=== PATIENT | female | born 1990 | race African-American/Black ===

== ENCOUNTER 2020-09-04 22:15 | Emergency (ER) | payer SELFPAY ==
--- OUTSIDE RECORDS SUMMARY | 2020-09-04 22:17 | XMS REPORT | Summary of Care ---
:1990 Author Organization [facility] Address [address] [place] [id number] Care Team Providers Name Role Phone Pcp, Does Not Have A Primary Care Provider Reason for Visit Reason Comments VAGINAL PAIN Auth/Cert Status Reason Specialty Diagnoses / Referred By Referred To Procedures Contact Contact Emergency Medicine [facility] [address] [place] [address] Fax: Encounter Details Date Type Department Care Team Description 06/24/2020 Emergency [facility]Emergency [place], Maryse R, Foul smell ing urine (Primary Dx); Department EMNP Suprapubic pain [address] [place] [address] [place] [address] [id number] [place], [place] [id number] Allergies Active Allergy Reactions Severity Noted Date Comments Latex Hives 05/29/2019 Morphine Swelling 05/29/2019 Ziprasidone Hcl Swelling 05/29/2019 documented as of this encounter (statuses as of 06/24/2020) Medications Medication Sig Dispensed Refills Start Date End Date Status hydrOXYzine 25 mg Take 25 mg by 0 Active capsule mouth 3 (three) times daily as needed for Itching. documented as of this encounter (statuses as of 06/24/2020) Active Problems Problem Noted Date 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/2020 documented as of this encounter (statuses as of 06/24/2020) Social History Tobacco Use Types Packs/Day Years Used Date Light Tobacco Smoker Smokeless Tobacco: Never Used Sex Assigned at Date Recorded Not on file COVID-19 Exposure Response Date Recorded In the last month, have you been in contact with No / Unsure 06/24/2020 7:54 PM CDT someone who was confirmed or suspected to have Coronavirus / COVID-19? documented as of this encounter Last Filed Vital Signs Vital Sign Reading Time Taken Comments Blood Pressure 141/97 06/24/2020 7:57 PM CDT Pulse 73 06/24/2020 7:57 PM CDT Temperature 36.7 C (98.1 F) 06/24/2020 7:57 PM CDT Respiratory Rate 16 06/24/2020 7:57 PM CDT Oxygen Saturation 100% 06/24/2020 7:57 PM CDT Inhaled Oxygen Concentration - - Weight 70.3 kg (155 lb) 06/24/2020 7:57 PM CDT Height 157.5 cm (5' 2") 06/24/2020 7:57 PM CDT Body Mass Index 28.35 06/24/2020 7:57 PM CDT documented in this encounter Discharge Instructions Maryse Grimes EMNP - 06/24/2020NO LIFE-THREATENING FINDINGS ON TODAY'S EXAM. SPECIAL INSTRUCTIONS: 1. May take motrin 600mg every 6 hours with food for pain 2. May take 2 tylenol every 4 hours for pain 3. Follow up with OBGYN, information for [facility] included in discharge. FOLLOW-UP RECOMMENDATIONS: RECOMMEND FOLLOW-UP WITH A PRIMARY CARE PROVIDER OR SPECIALIST IN 2-5 DAYS, ESPECIALLY IF NO IMPROVEMENT IN SYMPTOMS. TO FOLLOW-UP WITHIN THE [facility], TRY THESE OPTIONS (CLINIC APPOINTMENTS AVAILABLE ON MZCO-PS-BABG BASIS): 1. SCHEDULE AN APPOINTMENT ONLINE AT [email or web address] 2. OR CALL THE [facility] AT OR 3. OR CALL YOUR [facility] PHYSICIAN'S OFFICE DIRECTLY IF YOU ARE ALREADY AN ESTABLISHED [facility] PATIENT. OR, YOU MAY FOLLOW-UP WITH A PROVIDER OF YOUR CHOICE, SUCH : 1. A PHYSICIAN OF YOUR CHOICE 2. [facility], . LOCATIONS IN [facility] 3. [facility], [address], [place]; [phone] RETURN TO ER FOR WORSENING OF SYMPTOMS. AttachmentsThe following attachments cannot be sent through Care Everywhere. Abdominal Pain, Adult (Syriac)documented in this encounter ED Notes Omaira Quezada RN - 06/24/2020 7:54 PM CDTCC: patient presents to the ER with complaints of vaginal pain that began two days ago after switching body soap. Patient has taken ibuprofen without relief. Denies discharge. PMHx: see history LMP: 06/22/2020 - end Tetanus: UTD Awake, alert, oriented, resp reg unlabored, skin warm and dry, color appropriate for race, moves allext without difficulty, amb without assistance. Appears in no distress. documented in this encounter Miscellaneous Notes ED Nurse Note - Franca Lerma RN - 06/24/2020 9:10 PM CDTPt given printed and verbal discharge instructions regarding foul smelling urine and suprapubic pain, encouraged hydration, Prescriptions provided none Discussed ibuprofen and to take with food to avoid GI distress. 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 Advised to seek medical attention for new/prolonged/worsening of symptoms, Symptoms remained stable Awake, alert oriented, resp reg unlabored, skin w/d, pt leaving amb with steady gait, in no apparent distress, documented in this encounter Plan of Treatment Health Maintenance Due Date Last Done Comments VARICELLA VACCINES (1 of 2 - 2-dose childhood series) 12/17/1991 PNEUMOCOCCAL 0-64 YEARS COMBINED SERIES (1 of 1 - 1996 PPSV23) Depression Screening 2002 DTaP,Tdap,and Td Vaccines (1 - Tdap) 2009 PAP SMEAR 12/17/2011 INFLUENZA VACCINE (#1) 2020 documented as of this encounter Procedures Procedure Name Priority Date/Time Associated Comments Diagnosis POCT TEST CHAVA 06/24/2020 8:16 PM Foul smelling urine Results for this CDT procedure are i n the results section. URINALYSIS STAT 06/24/2020 8:16 PM Foul smelling urine R esults for this CDT procedure are i n the results section. CONSENT/REFUSAL FOR Routine 06/24/2020 7:49 PM DIAGNOSIS AND CDT TREATMENT documented in this encounter Results URINALYSIS (06/24/2020 8:16 PM CDT) Pathologist Sig nature APPEARANCE Clear Clear [facility] COLOR Yellow Yellow [facility] PH 6.0 4.8 - 8.0 [facility] SP GRAVITY 1.028 1.003 - 1.030 [facility] GLU U QUAL Normal Normal [facility] BLOOD Negative Negative [facility] KETONES Negative Negative [facility] PROTEIN Negative Negative [facility] UROBILIN Normal Normal [facility] BILIRUBIN Negative Negative [facility] NITRITE Negative Negative [facility] LEUK FLORA Negative Negative [facility] RBC/HPF 1 0 - 3 HPF [facility] WBC/HPF 0 0 - 5 HPF [facility] BACTERIA Few (A) Negative [facility] MUCOUS Slight (A) Negative LPF [facility] SQ EPITH 4 HPF [facility] Specimen Urine - URINE, CLEAN CATCH Performing Organization Address City/State/Zipcode Phone Number [facility] CLIA: [id number] [place] [address] POCT TEST (06/24/2020 8:16 PM CDT) Pathologist Sig nature POCT PREG negative POCT PREG LOT # [id number] POCT PREG TEST DATE 05/15/2021 Specimen Urine - URINE, CLEAN CATCH documented in this encounter Visit Diagnoses Diagnosis Foul smelling urine - Primary Other nonspecific finding on examination of urine Suprapubic pain Abdominal pain, other specified site documented in this encounter Insurance Payer Benefit Plan / Subscriber ID Effective Dates Phone Addre ss Type Group MEDICARE MEDICARE PART [id number] 2011-[employer] [phone] Medicare [address] & [address] [id number] [place] [id number] [facility] MEDICAID OF [id number] 2019-[employer] [phone] Medicaid [place] [address] [id number] [place] [address] #A (Home) [place] [address] documented as of this encounter
--- OUTSIDE RECORDS SUMMARY | 2020-09-04 22:17 | XMS REPORT | Summary of Care ---
:1990 Author Organization [facility] Address [address] [place] [address] Care Team Providers Name Role Phone Paulette Gu MD Primary Care Provider Reason for Referral Radiology Services (STAT) Status Reason Specialty Diagnoses / Referred By Referred To Procedures Contact Contact New Request Diagnostic Diagnoses Lower abdominal pain Maryse Foley Radiology Procedures US OVARY TORSION R, EMNP [address] [facility] [id number] [place] [id number] Reason for Visit Reason Comments Abdominal Pain LLQ Auth/Cert Status Reason Specialty Diagnoses / Referred By Referred To Procedures Contact Contact Emergency Medicine [facility] Em ergency Dept [address] [place] [address] Fax: Encounter Details Date Type Department Care Team Description 07/08/2020 - Emergency ADC-Emergency Maryse Foley R, PID (acute pelvic inflammatory disease) (Primary Dx); 07/09/2020 Department EMNP Lower abdominal pain; [address] [place] [address] Exposure t o needle, initial encounter Drive [id number] [place] [address] [phone] Allergies Active Allergy Reactions Severity Noted Date Comments Latex Hives 05/29/2019 Morphine Swelling 05/29/2019 Ziprasidone Hcl Swelling 05/29/2019 documented as of this encounter (statuses as of 07/09/2020) Medications Medication Sig Dispensed Refills Start Date End Date Status hydrOXYzine 25 mg Take 25 mg by 0 Active capsule mouth 3 (three) times daily as needed for Itching. doxycycline hyclate Take 1 capsule 28 capsule 0 07/08/202004/2020 Active 100 mg by mouth 2 capsuleIndications: (two) times PID (acute pelvic daily for 14 inflammatory disease) days. metroNIDAZOLE 500 mg Take 1 tablet 28 tablet 0 07/08/202004/2020 Active tabletIndications: PID by mouth 2 (acute pelvic (two) times inflammatory disease) daily for 14 days. ibuprofen 600 mg Take 1 tablet 30 tablet 0 07/08/2020 Active tabletIndications: PID by mouth every (acute pelvic 6 (six) hours inflammatory disease) as needed for Pain (scale 4-6). 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 documented as of this encounter Last Filed Vital Signs Vital Sign Reading Time Taken Comments Blood Pressure 141/85 07/08/2020 11:05 PM CDT Pulse 74 07/08/2020 11:00 PM CDT Temperature 36.8 C (98.2 F) 07/08/2020 7:51 PM CDT Respiratory Rate 20 07/08/2020 11:00 PM CDT Oxygen Saturation 100% 07/08/2020 11:00 PM CDT Inhaled Oxygen Concentration - - Weight 68 kg (150 lb) 07/08/2020 7:51 PM CDT Height - - Body Mass Index 27.44 06/24/2020 7:57 PM CDT documented in this encounter Discharge Instructions Maryse Grimes EMNP - 07/08/2020NO LIFE-THREATENING FINDINGS ON TODAY'S EXAM. SPECIAL INSTRUCTIONS: 1. You are not and you do not have any ovarian cyst or torsion. 2. You are being tested for gonorrhea and chlamydia but you have also been treated. You will need tocontinue the antibiotics prescribed for 2 weeks 3. Follow up with OBGYN for well woman exam 4. See attached information 5. Return for fever, worsening pain or any other concerns FOLLOW-UP RECOMMENDATIONS: RECOMMEND FOLLOW-UP WITH A PRIMARY CARE PROVIDER OR SPECIALIST IN 2-5 DAYS, ESPECIALLY IF NO IMPROVEMENT IN SYMPTOMS. TO FOLLOW-UP WITHIN THE [facility], TRY THESE OPTIONS (CLINIC APPOINTMENTS AVAILABLE ON QOOK-DO-NQRP BASIS): 1. SCHEDULE AN APPOINTMENT ONLINE AT [facility] 2. OR CALL THE [facility] ACCESS CENTER AT OR 3. OR CALL YOUR [facility] PHYSICIAN'S OFFICE DIRECTLY IF YOU ARE ALREADY AN ESTABLISHED [facility] PATIENT. OR, YOU MAY FOLLOW-UP WITH A PROVIDER OF YOUR CHOICE, SUCH : 1. A PHYSICIAN OF YOUR CHOICE 2. [facility], . LOCATIONS IN [facility] 3. [facility], [address], [place]; [phone] RETURN TO ER FOR WORSENING OF SYMPTOMS. AttachmentsThe following attachments cannot be sent through Care Everywhere. Abdominal Pain, Adult (Omani)Pelvic Inflammatory Disease (Omani)Pelvic Inflammatory Disease (PID)? What Is (Omani)Pelvic Inflammatory Disease, Treating with Medicines (PID) (Omani)Metronidazole tablets or capsules (Omani)Doxycycline tablets or capsules (Omani)Ibuprofen tablets and capsules (Omani)documented in this encounter ED Notes Dinorah Fox RN - 07/08/2020 7:50 PM CDTPatient arrived via private car with c/o LLQ abd pain "for a few days". Patient states she does notknow her LMP documented in this encounter Miscellaneous Notes Nursing Note - Laly Torres RN - 07/09/2020 12:27 AM CDTSource of occupational exposure. Consent obtained. Labs drawn for HIV, HCV, and HBsAg. Consent/labs 07/08/2020 at 2350 D Nurse Note - Lesly Bolaños RN - 07/09/2020 12:09 AM CDTPt given printed and verbal discharge instructions regarding PID, encouraged hydration, Prescriptions provided Doxycycline hyclate Metronidazole Ibuprofen Discussed ibuprofen and to take with food to avoid GI distress. Discussed antibiotic therapy and to take until all completed unless adverse reaction occurs - if occurs, discontinue medication and follow up with pcp/seek medical attention 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 and OBGYN Advised to seek medical attention for new/prolonged/worsening of symptoms, Symptoms increase pain, any signs of infection, fever over 100.4 No adverse reaction to meds given in ER noted upon discharge PIV d'cd, dressing to site, catheter in tact. Awake, alert oriented, resp reg unlabored, skin w/d, pt leaving amb with steady gait, in no apparent distress, documented in this encounter Plan of Treatment Date Type Specialty Care Team Description 07/28/2020 Office Visit Family Medicine Diane Gu MD [address] [place] [address] [phone] Name Type Priority Associated Diagnoses Order S chedule GC & CHLAMYDIA LAB Routine PID (acute pelvic ONCE for 1 Occurrences AMPLIFIED ASSAY inflammatory disease) sta rting 07/08/2020 until 0 HIV 1/2 AG-AB WITH LAB Routine Exposure to needle, ON CE for 1 Occurrences REFLEX initial encounter starting 0 07/09/2020 until 0 HCV ANTIBODY LAB Routine Exposure to needle, ONCE for 1 Occurrences initial encounter starting 0 07/09/2020 until 0 HEPATITIS B SURFACE LAB Routine Exposure to needle, O NCE for 1 Occurrences ANTIBODY initial encounter starting 0 07/09/2020 until 0 HEPATITIS B CORE LAB Routine Exposure to needle, ONCE for 1 Occurrences ANTIBODY IGM initial encounter starting 0 07/09/2020 until 0 Health Maintenance Due Date Last Done Comments VARICELLA VACCINES (1 of 2 - 2-dose childhood series) 12/17/1991 PNEUMOCOCCAL 0-64 YEARS COMBINED SERIES (1 of 1 - 1996 PPSV23) Depression Screening 2002 DTaP,Tdap,and Td Vaccines (1 - Tdap) 2009 PAP SMEAR 12/17/2011 INFLUENZA VACCINE (#1) 2020 documented as of this encounter Procedures Procedure Name Priority Date/Time Associated Comments Diagnosis US OVARY TORSION STAT 07/08/2020 9:31 PM Lower abdominal R esults for this CDT pain procedure are i n the results section. CBC WITH DIFF STAT 07/08/2020 8:30 PM Lower abdominal Resu lts for this CDT pain procedure are i n the results section. COMP. METABOLIC STAT 07/08/2020 8:30 PM Lower abdominal Re sults for this PANEL ([id number]) CDT pain procedure are in the results section. POCT TEST CHAVA 07/08/2020 8:17 PM Lower abdomina l Results for this CDT pain procedure are i n the results section. URINALYSIS STAT 07/08/2020 8:16 PM Lower abdominal Resul ts for this CDT pain procedure are i n the results section. CONSENT/REFUSAL FOR Routine 07/08/2020 7:39 PM DIAGNOSIS AND CDT TREATMENT documented in this encounter Results US OVARY TORSION (07/08/2020 9:31 PM CDT) Specimen Impressions Performed At PACS/VR/DOSE Normal size ovaries with patent flow. Low suspicious f or ovarian torsion. Preliminary Report Dictated by Resident: Sneha Mead I, Nathaniel Girard MD., have reviewed this study and agree with the above report. Narrative Performed At PACS/VR/DOSE EXAM: TRANSABDOMINAL AND TRANSVAGINAL PE LVIC ULTRASOUND HISTORY: left lower abd pain COMPARISON: None FINDINGS: The uterus is normal in size and echotex ture and exhibits no masses or focal defects. It measures 7.4 x 4.2 x 4 .6 cm (75 mL). The endometrial stripe measures a normal 11 mm. Both ovaries are normal in size and echotexture. The r ight ovary measures 2.9 x 2.1 x 2 cm (6.2 mL) and the left ovary measures 3.5 x 2.4 x 2 cm(8.9 mL). Arterial and venous flow is present in bilateral ovaries. The urinary bladder is unremarkable. Trace fluid is present in the cul-de-sac . Procedure Note [facility], Radiant Results Inft User - 2019 11:10 PM CDT EXAM: TRANSABDOMINAL AND TRANSVAGINAL PE LVIC ULTRASOUND HISTORY: left lower abd pain COMPARISON: None FINDINGS: The uterus is normal in size and echotex ture and exhibits no masses or focal defects. It measures 7.4 x 4.2 x 4 .6 cm (75 mL). The endometrial stripe measures a normal 11 mm. Both ovaries are normal in size and echo texture. The right ovary measures 2.9 x 2.1 x 2 cm (6.2 mL) and the left o vary measures 3.5 x 2.4 x 2 cm(8.9 mL). Arterial and venous flow is present in bilateral ovaries. The urinary bladder is unremarkable. Trace fluid is present in the cul-de-sac . IMPRESSION Normal size ovaries with patent flow. Lo w suspicious for ovarian torsion. Preliminary Report Dictated by Resident: Sneha Mead I, Nathaniel Girard MD., have review ed this study and agree with the above report. Performing Organization Address City/State/Zipcode Phone Number PACS/VR/DOSE COMP. METABOLIC PANEL ([id number]) (07/08/2020 8:30 PM CDT) Pathologist Sig nature NA 137 135 - 145 mmol/L [facility] K 3.9 3.5 - 5.0 mmol/L [facility] CL 100 98 - 108 mmol/L [facility] CO2 TOTAL 29 23 - 31 mmol/L [facility] AGAP 8 2 - 16 [facility] BUN 13 7 - 23 mg/dL [facility] GLUCOSE 92 70 - 110 mg/dL [facility] CREATININE 0.74 0.50 - 1.04 [facility] mg/dL HOSPITAL [facility] TOTAL BILI 0.2 0.1 - 1.1 mg/dL [facility] CALCIUM 9.9 8.6 - 10.6 mg/dL [facility] T PROTEIN 7.6 6.3 - 8.2 g/dL [facility] ALBUMIN 4.4 3.5 - 5.0 g/dL [facility] ALK PHOS 48 34 - 122 U/L [facility] ALTv 21 5 - 35 U/L [facility] AST(SGOT) 26 13 - 40 U/L [facility] eGFR Calculation 92.8 mL/min/1.73m2 [facility] (Non-) [facility] Y eGFR Calculation 112.5 mL/min/1.73m2 [facility] () [facility] Specimen Blood - VENOUS Narrative Performed At [facility] of Glomerular Filtration Rate (GFR) [facility] and Staging of Kidney Disease* + + +- + | GFR (mL/min/1.73 m2) | With Kidney Damage | Without Kidney Damage + + +- + | >90 | Stage one | Normal + + +- + | 60-89 | Stage two | Decreased GFR + + +- + | 30-59 | Stage three | Stage three + + +- + | 15-29 | Stage four | Stage four + + +- + | <15 (or dialysis) | Stage five | Stage five + + +- + *Each stage assumes the associated GFR level has been in effect for at least three months. Stages 1 to 5, with or without kidney disease, indicate chronic kidney disease. Notes: Determination of stages one and two (with eGFR >59mL/min/1.73 m2) requires estimation of kidney damage for at least three months as defined by structural or functional abnormalities of the kidney, manifested by either: Pathological abnormalities or Markers of kidney damage (including abnormalities in the composition of the blood or urine or abnormalities in imaging tests). Performing Organization Address City/State/Zipcode Phone Number [facility] CLIA: [id number] [place] [address] CBC WITH DIFF (07/08/2020 8:30 PM CDT) Pathologist [facility] nature WBC 6.27 4.30 - 11.10 [facility] 10*3/L [facility] RBC 4.16 3.93 - 5.25 [facility] 10*6/L [facility] HGB 12.5 11.6 - 15.0 g/dL [facility] HCT 37.0 35.7 - 45.2 % [facility] MCV 88.9 80.6 - 95.5 fL [facility] MCH 30.0 25.9 - 32.8 pg [facility] MCHC 33.8 31.6 - 35.1 g/dL [facility] RDW-SD 41.6 39.0 - 49.9 fL [facility] RDW-CV 12.7 12.0 - 15.5 % [facility] PLT 275 166 - 358 [facility] 10*3/L [facility] MPV 9.7 9.5 - 12.9 fL [facility] NRBC/100 WBC 0.0 0.0 - 10.0 /100 [facility] WBCs [facility] NRBC x10^3 <0.01 10*3/L [facility] GRAN MAT (NEUT) % 42.1 % [facility] IMM GRAN % 0.20 % [facility] LYMPH % 47.4 % [facility] MONO % 8.9 % [facility] EOS % 1.1 % [facility] BASO % 0.3 % [facility] GRAN MAT x10^3(ANC) 2.64 1.88 - 7.09 [facility] 10*3/uL [facility] IMM GRAN x10^3 <0.03 0.00 - 0.06 [facility] 10*3/uL [facility] LYMPH x10^3 2.97 1.32 - 3.29 [facility] 10*3/uL [facility] MONO x10^3 0.56 0.33 - 0.92 [facility] 10*3/uL [facility] EOS x10^3 0.07 0.03 - 0.39 [facility] 10*3/uL [facility] BASO x10^3 <0.03 0.01 - 0.07 [facility] 103/uL [facility] Specimen Blood - VENOUS Performing Organization Address City/State/Zipcode Phone Number [facility] CLIA: [id number] [place] [address] POCT TEST (07/08/2020 8:17 PM CDT) Pathologist Sig nature POCT PREG Negative On board controls acceptable Present with C Line POCT PREG LOT # [id number] POCT PREG TEST DATE 08/15/2021 Specimen Urine - URINE, CLEAN CATCH URINALYSIS (07/08/2020 8:16 PM CDT) Pathologist Sig nature APPEARANCE Clear Clear [facility] COLOR Yellow Yellow [facility] PH 6.0 4.8 - 8.0 [facility] SP GRAVITY 1.032 (H) 1.003 - 1.030 [facility] GLU U QUAL Normal Normal [facility] BLOOD Negative Negative [facility] KETONES 5 mg/dL (A) Negative [facility] PROTEIN 30 mg/dL (A) Negative [facility] UROBILIN 2.0 mg/dL (A) Normal [facility] BILIRUBIN Negative Negative [facility] NITRITE Negative Negative [facility] LEUK FLORA Negative Negative [facility] RBC/HPF <1 0 - 3 HPF [facility] WBC/HPF 1 0 - 5 HPF [facility] BACTERIA Negative Negative [facility] MUCOUS Slight (A) Negative LPF [facility] SQ EPITH 3 HPF [facility] Specimen Urine - URINE, CLEAN CATCH Performing Organization Address City/State/Zipcode Phone Number [facility] CLIA: [id number] [place] [address] documented in this encounter Visit Diagnoses Diagnosis PID (acute pelvic inflammatory disease) - Primary Acute parametritis and pelvic cellulitis Lower abdominal pain Abdominal pain, other specified site Exposure to needle, initial encounter documented in this encounter Administered Medications Medication Order MAR Action Action Date Dose Rate Site cefTRIAXone (ROCEPHIN) Given 07/08/2020 11:10 PM 250 mg Right Deltoid-IM injection 250 mg CDT 250 mg, Intramuscular, Q24H, First dose on Doreen 07/09/20 at 0015, Until Discontinued, CHAVA, Reason for Anti-Infective: Documented Infection, Documented Infection Site: Pelvic, Duration of Therapy: Other (see Comments) Medication Order MAR Action Action Date Dose Rate Site azithromycin (ZITHROMAX) tablet Given 07/08/2020 11:10 PM CDT 1, 000 mg 1,000 mg 1,000 mg, Oral, ONCE, 1 dose, Doreen 07/09/20 at 0015, CHAVA, Reason for Anti-Infective: Documented Infection, Documented Infection Site: Pelvic, Duration of Therapy: Other (see Comments) FENTanyl PF (SUBLIMAZE (PF)) injection 50 Given 07/08/2020 9:53 PM CDT 50 mcg mcg 50 mcg, Slow IV Push, ONCE, 1 dose, Mon07/08/20 at 2300, Routine ketorolac (TORADOL) injection 15 mg Given 07/08/2020 8:25 PM CDT 15 mg 15 mg, Slow IV Push, ONCE, 1 dose, Mon07/08/20 at 2130, CHAVA, rail crew member approving Restricted medication: MARYSE FOLEY NaCl 0.9% (NS) bolus infusion New Bag 07/08/2020 8:31 PM CDT 1,000 mL 999 mL/hr 1,000 mL at 999 mL/hr, 1,000 mL, IV Infusion, ONCE, 1 dose, Mon07/08/20 at 2030, CHAVA ondansetron (ZOFRAN (PF)) injection 4 mg Given 07/08/2020 9:53 PM CDT 4 mg 4 mg, Slow IV Push, ONCE, 1 dose, Mon07/08/20 at 2300, CHAVA documented in this encounter Insurance Payer Benefit Plan / Subscriber ID Effective Dates Phone Addre ss Type Group MEDICARE MEDICARE PART [id number] 2011-Presen [phone] [facility] Medicare A & B t 2 [id number] EHSAN SHAH [id number] [facility] MEDICAID OF [id number] 2019-Presen [phone] [place] t 0 [id number] [place] [address] documented as of this encounter
--- OUTSIDE RECORDS SUMMARY | 2020-09-04 22:17 | XMS REPORT | Clinical Summary ---
:1990 Author Organization [facility] Address [address] [place] [address] Care Team Providers Name Role Phone Asked, No Pcp Primary Care Provider Unavailable Allergies Active Allergy Reactions Severity Noted Date Comments Ziprasidone Hcl Swelling 05/29/2019 Latex Hives 05/29/2019 Morphine Swelling 05/29/2019 Medications No known medications Active Problems Problem Noted Date Abdominal pain 06/01/2019 Ectopic 05/29/2019 Vaginal bleeding affecting early 05/29/2019 5 weeks gestation of 05/29/2019 Pelvic pain affecting 05/29/2019 Status post laparoscopy 05/29/2019 Ectopic , tubal 05/29/2019 Surgical History Surgery Date Site/Laterality Comments SALPINGOSTOMY 10/16/2015 - Left laparoscopy for ectopic 10/15/2016 DILATION AND CURETTAGE, DIAGNOSTIC / THERAPEUTIC LAPAROSCOPY FOR ECTOPIC 05/29/2019 Right Right sa lpingectomy by Dr. HALEY Munoz Medical History Medical History Date Comments PTSD (post-traumatic stress disorder) Depression Anxiety Abnormal Pap smear of cervix Chlamydia Migraine Social History Tobacco Use Types Packs/Day Years Used Date Current Every Day Smoker Cigarettes 0.25 Sta rted: 2004 Smokeless Tobacco: Never Used Alcohol Use Drinks/Week oz/Week Comments Yes occasional Sex Assigned at Date Recorded Not on file Obstetrics History Grav Para Term Pre Abrt (TAB) (SAB) (Ect) Mult Lvng Comments 4 3 2 1 Date Outcome GA Total Labor/2nd/3rd Weight Sex Delivery Anes PTL Pily A 1 A5 Name Clin Labor 2008 SAB SAB 2016 Ectopic 2018 SAB SAB Last Filed Vital Signs Not on file Plan of Treatment Health Maintenance Due Date Last Done Comments CERVICAL CANCER SCREENING 12/17/2011 INFLUENZA VACCINE 05/16/2020 Results Not on fileafter 09/04/2019 Insurance Payer Benefit Plan / Subscriber ID Effective Dates Phone Addre ss Type Group MEDICARE MEDICARE PART A [id number] 2011-Present KYLIE YEH Medicare AND B Advance Directives For more information, please contact: [phone] Type Date Recorded Patient Water Purifier Operator Explanati on Advance Directives, Living Will 06/01/2019 5:48 PM and Medical Power of 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
--- OUTSIDE RECORDS SUMMARY | 2020-09-04 22:17 | XMS REPORT | Continuity of Care Document ---
:1990 Author Organization [facility] t Address Critical access hospital [address] [place] [address] Care Team Providers Name Role Phone Asked, Pcp Primary Care Physician Unavailable [facility] WEST Attending Clinician Singer LUA Attending Clinician Lab, Fam Pob I Attending Clinician Unavailable Problems Condition Condition Condition Status Onset Resolution Last Treating Co mments Source Name Details Category Date Date Treatment Clinician Date Abdominal Abdominal Disease Active [facility] pain pain 8-17 [facility] 00:00: st 00 Ectopic Ectopic Disease Active [place] 8-14 Meth mara 00:00: st 00 Vaginal Vaginal Disease Active [place] bleeding bleeding 8-14 [facility] i affecting affecting 00:00: st early early 00 5 weeks 5 weeks Disease Active [place] gestation gestation 8-14 Meth mara of of 00:00: st 00 Pelvic Pelvic Disease Active [place] pain pain 8-14 [facility] affecting affecting 00:00: st 00 Status Status Disease Active [place] post post 8-14 [facility] laparoscop laparoscop 00:00: st y y 00 Ectopic Ectopic Disease Active [place] , , 8-14 Me thodi tubal tubal 00:00: st 00 Allergies, Adverse Reactions, Alerts Allergy Allergy Status Severity Reaction(s) Onset Inactive Treating Comm ents Source Name Type Date Date Clinician Ziprasid Propensi Active Swelling [place] Hcl ty to 8-14 [facility] adverse 00:00: st reaction 00 s to drug Latex Propensi Active Hives [facility] ty to 8-14 [facility] adverse 00:00: st reaction 00 s to drug Morphine Propensi Active Swelling 2018- [place] ty to 05-29 [facility] adverse 00:00: st reaction 00 s to drug Social History Social Habit Start Date Stop Date Quantity Comments Source History of tobacco Current every day [facility] use smoker [facility] Sex Assigned At [place] [facility] Cigarettes smoked 2020-05-27 2020-05-27 [facility] current (pack per 00:00:00 00:00:[address] day) - Reported Tobacco use and 2020-05-27 2020-05-27 Never used [facility] exposure 00:00:00 00:00:00 [facility] Alcohol intake 2020-05-27 2020-05-27 Current drinker [place] 00:00:00 00:00:00 of alcohol [facility] (finding) Alcohol Comment 2019-05-29 2019-05-29 occasional [facility] 00:00:00 00:00:00 [facility] Smoking Status Start Date Stop Date Source Current every day smoker 2020-05-27 00:00:00 Aroldo gupta [facility] Medications This patient has no known medications. Procedures This patient has no known procedures. Plan of Care Planned Activity Planned Date Details Comments Source Future Scheduled 2020-05-16 INFLUENZA VACCINE [place] [facility] Test 00:00:00 [code = INFLUENZA VACCINE] Future Scheduled 2011-12-17 Screening for [place] [facility] Test 00:00:00 malignant neoplasm of cervix (procedure) [code = 901010680] Encounters Start End Encounter Admission Attending Care Care Encounter Source Date/Time Date/Time Type Type Clinicians Facility Department ID 2020-09-04 2020-09-04 Emergency Akosua, [facility] [place] [id number] 19:15:00 20:48:00 Tristen Rush [id number] [place] [id number] [place] [id number] 2020-09-04 2020-09-04 Emergency Schroeder, [facility] [place] [id number] 08:40:00 11:20:00 Keaton Adri [id number] [place] [id number] [place] [id number] 2020-08-18 2020-08-18 Laboratory Lab, [facility] [id number] 08:30:53 08:55:02 Only Fam [facility] [id number] [place] [id number] [id number] [place] [address] [address] Results This patient has no known results.
--- OUTSIDE RECORDS SUMMARY | 2020-09-04 22:18 | XMS REPORT | Summary of Care ---
:1990 Author Organization [facility] - [facility] Address [address] [place] [id number] Care Team Providers Name Role Phone Paulette Gu MD Primary Care Provider Reason for Visit Reason Comments Ingestion Auth/Cert Status Reason Specialty Diagnoses / Referred By Referred To Procedures Contact Contact Emergency Medicine Ad[facility] Em ergency Dept [address] [place] [address] Fax: Encounter Details Date Type Department Care Team Description 09/04/2020 Emergency ADC-Emergency Keaton Schroeder DO Adverse effect of sympathomimetics, init ial encounter (Primary Dx); Department [address] [facility]. Polysubstance abuse [address] [facility] [address] [place] [address] [place] [address] [phone] Allergies Active Allergy Reactions Severity Noted Date Comments Latex Hives 05/29/2019 Morphine Swelling 05/29/2019 Ziprasidone Hcl Swelling 05/29/2019 documented as of this encounter (statuses as of 09/04/2020) Medications Medication Sig Dispensed Refills Start Date End Date Status hydrOXYzine 25 mg Take 25 mg by 0 Active capsule mouth 3 (three) times daily as needed for Itching. ibuprofen 600 mg Take 1 tablet by 30 tablet 0 07/08/2020 Active tabletIndications: PID mouth every 6 (acute pelvic (six) hours as inflammatory disease) needed for Pain (scale 4-6). documented as of this encounter (statuses as of 09/04/2020) Active Problems Problem Noted Date 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/2020 documented as of this encounter (statuses as of 09/04/2020) Social History Tobacco Use Types Packs/Day Years Used Date Light Tobacco Smoker Smokeless Tobacco: Never Used Sex Assigned at Date Recorded Not on file COVID-19 Exposure Response Date Recorded In the last month, have you been in contact with No / Unsure 09/04/2020 8:36 AM PLASTICS PROCESS HAND someone who was confirmed or suspected to have Coronavirus / COVID-19? documented as of this encounter Last Filed Vital Signs Vital Sign Reading Time Taken Comments Blood Pressure 144/105 09/04/2020 11:02 AM PLASTICS PROCESS HAND Pulse 84 09/04/2020 11:02 AM PLASTICS PROCESS HAND Temperature 37.7 C (99.8 F) 09/04/2020 8:38 AM PLASTICS PROCESS HAND Respiratory Rate 16 09/04/2020 11:02 AM PLASTICS PROCESS HAND Oxygen Saturation 100% 09/04/2020 11:02 AM PLASTICS PROCESS HAND Inhaled Oxygen Concentration - - Weight 65.8 kg (145 lb) 09/04/2020 8:38 AM PLASTICS PROCESS HAND Height - - Body Mass Index 26.52 06/24/2020 7:57 PM CDT documented in this encounter Discharge Instructions Keaton Zuniga DO - 09/04/2020 DIAGNOSIS Diagnoses that have been ruled out: None Diagnoses that are still under consideration: None Final diagnoses: Adverse effect of sympathomimetics, initial encounter Polysubstance abuse NO LIFE-THREATENING FINDINGS ON TODAY'S EXAM. PROCEDURES IN THE ER TODAY: Orders Placed This Encounter Procedures ADC / [facility] - DRUG SCREEN TRIAGE ACETAMINOPHEN COMP. METABOLIC PANEL (62401) ETHANOL SALICYLATE URINALYSIS CREATINE KINASE CBC WITH DIFF POCT TEST MEDICATIONS ADMINISTERED IN THE ER TODAY AND DISCHARGE MEDICATIONS: Orders Placed This Encounter Medications NaCl 0.9% (NS) bolus infusion 1,000 mL FOLLOW-UP RECOMMENDATIONS: RECOMMEND FOLLOW-UP WITH A PRIMARY CARE PROVIDER OR SPECIALIST IN 2-5 DAYS, ESPECIALLY IF NO IMPROVEMENT IN SYMPTOMS. MAY FOLLOW-UP WITH A PROVIDER OF YOUR CHOICE, SUCH : 1. A PHYSICIAN OF YOUR CHOICE 2. [facility], . LOCATIONS IN [facility] 3. [facility], [address] [place] [address]; [phone] OR, IF YOU WISH TO FOLLOW-UP WITHIN THE [facility], MAY TRY THESE OPTIONS (CLINIC APPOINTMENTS AVAILABLE ON [id number] BASIS): 1. SCHEDULE AN APPOINTMENT ONLINE AT WWW[facility] 2. OR CALL THE [facility] ACCESS CENTER AT OR 3. OR CALL YOUR [facility] PHYSICIAN'S OFFICE DIRECTLY IF YOU ARE ALREADY AN ESTABLISHED [facility] PATIENT. RETURN TO ER FOR WORSENING OF SYMPTOMS. AttachmentsThe following attachments cannot be sent through Care Everywhere. Abuse, Drug (Greenlandic)Drug Reaction, Other (Greenlandic)documented in this encounter ED Notes Lucien Gamble RN - 09/04/2020 8:36 AM CSTPatient c/o feeling like her throat is closing up after taking an unknown pill from a friend. Patient reports that she thought she was taking Xanax but believes she may have gotten Adderall. Patient istalking in full sentences and O2 sats are 100% on RA. Patient has rapid speech and movements and is sweating. Keaton Uriostegui DO - 09/04/2020 8:31 AM CST EMERGENCY DEPARTMENT ENCOUNTER [facility] Patient Name: Zack Persaud Date of : 1990 29 year old Exam Room:TX1/TX1 Primary Care Physician: Huong Gu [facility] Patient Escorted by: Self [9] Mode of Arrival: Personal means [1] EMS Treatment Prior to ED Arrival: [facility]G AND [facility] COOK treatment: Medication (comment) DOG AND CAT FOOD COOK treatment comments: took xanax from a friend, and another pill unknown, and benadryl Chief Complaint Chief Complaint Patient presents with Ingestion HPI 29-year-old female presenting with concern about allergic reaction or adverse reaction to medication. She reportedly took an unknown pill from a friend that she thought was Xanax but it may have been Adderall. She presented tachycardic diaphoretic and appearing as though she has sympathomimetic toxidrome. She states that she took the medication earlier in the night and has not been able to sleep.Reportedly took 1 white round pill. No intention to harm. Took Benadryl prior to coming in. Past Medical History / Immunizations Past Medical History: Diagnosis Date ADHD Anxiety Bipolar 2 disorder Depression Ectopic PTSD (post-traumatic stress disorder) Tetanus received in last 5 years: Yes Past Surgical History Past Surgical History: Procedure Laterality Date SALPINGECTOMY Right Allergies Allergies Allergen Reactions Latex Hives Morphine Swelling Ziprasidone Hcl Swelling Social History Tobacco Use Light Tobacco Smoker. Smokeless Tobacco: Never used smokeless tobacco. Review of Systems Review of Systems Constitutional: Negative for chills, fatigue and fever. HENT: Positive for trouble swallowing. Negative for sore throat. Eyes: Negative for pain. Respiratory: Negative for cough, chest tightness, shortness of breath and stridor. Breasts: Negative for pain. Cardiovascular: Negative for chest pain and palpitations. Gastrointestinal: Negative for abdominal pain, constipation and diarrhea. Genitourinary: Negative for bladder incontinence, vaginal discharge and difficulty urinating. Musculoskeletal: Negative for back pain. Skin: Negative for color change and wound. Neurological: Negative for dizziness, seizures, weakness, light-headedness and headaches. Psychiatric/Behavioral: Negative for self-injury and suicidal ideas. The patient is nervous/anxious. Physical Exam BP (!) 166/141 | Pulse 107 | Temp 37.7 C (99.8 F) (Oral) | Resp 22 | Wt 65.8 kg (145 lb) | SpO2 100% | BMI 26.52 kg/m Physical Exam Vitals signs and nursing note reviewed. Constitutional: General: She is not in acute distress. Appearance: She is well-developed. She is not diaphoretic. HENT: Head: Normocephalic and atraumatic. Right Ear: External ear normal. Left Ear: External ear normal. Nose: Nose normal. Eyes: General: No scleral icterus. Conjunctiva/sclera: Conjunctivae normal. Pupils: Pupils are equal, round, and reactive to light. Neck: Musculoskeletal: Normal range of motion and neck supple. Cardiovascular: Rate and Rhythm: Regular rhythm. Tachycardia present. Heart sounds: Normal heart sounds. Pulmonary: Effort: Pulmonary effort is normal. Breath sounds: Normal breath sounds. Abdominal: General: Bowel sounds are normal. Palpations: Abdomen is soft. Tenderness: There is no abdominal tenderness. Musculoskeletal: Normal range of motion. Skin: General: Skin is warm and dry. Neurological: Mental Status: She is alert and oriented to person, place, and time. Cranial Nerves: No cranial nerve deficit. Deep Tendon Reflexes: Reflexes are normal and symmetric. Psychiatric: Mood and Affect: Mood is anxious. Speech: Speech is rapid and pressured. Speech is not slurred. Behavior: Behavior normal. Behavior is cooperative. Thought Content: Thought content normal. Labs Recent Results (from the past 24 hour(s)) ADC / [facility] - DRUG SCREEN TRIAGE Collection Time: 09/04/20 8:59 AM Result Value Ref Range BENZO U Presumptive Positive (A) Negative RENE U Negative Negative AMPHET Presumptive Positive (A) Negative THC Negative Negative METHADONE Negative Negative Meth U Presumptive Positive (A) Negative OPIATES Negative Negative Cocaine Metabolite Negative Negative PROPOXY Negative Negative Tric U Negative Negative PCP Negative Negative OXYCOD Negative Negative ACETAMINOPHEN Collection Time: 09/04/20 8:59 AM Result Value Ref Range ACETAMINOP <10.0 (L) 10.0 - 30.0 ug/mL COMP. METABOLIC PANEL (71426) Collection Time: 09/04/20 8:59 AM Result Value Ref Range NA 140 135 - 145 mmol/L K 3.4 (L) 3.5 - 5.0 mmol/L CL 103 98 - 108 mmol/L CO2 TOTAL 23 23 - 31 mmol/L AGAP 14 2 - 16 BUN 10 7 - 23 mg/dL GLUCOSE 108 70 - 110 mg/dL CREATININE 0.70 0.50 - 1.04 mg/dL TOTAL BILI 0.7 0.1 - 1.1 mg/dL CALCIUM 10.4 8.6 - 10.6 mg/dL T PROTEIN 8.8 (H) 6.3 - 8.2 g/dL ALBUMIN 5.1 (H) 3.5 - 5.0 g/dL ALK PHOS 59 34 - 122 U/L ALTv 20 5 - 35 U/L AST(SGOT) 28 13 - 40 U/L eGFR Calculation (Non-) 98.9 mL/min/1.73m2 eGFR Calculation () 119.9 mL/min/1.73m2 ETHANOL Collection Time: 09/04/20 8:59 AM Result Value Ref Range ALCOHOL <10 mg/dL SALICYLATE Collection Time: 09/04/20 8:59 AM Result Value Ref Range SALICYLATE <10 mg/L URINALYSIS Collection Time: 09/04/20 8:59 AM Result Value Ref Range APPEARANCE Hazy (A) Clear COLOR Deborah (A) Yellow PH 5.0 4.8 - 8.0 SP GRAVITY 1.035 (H) 1.003 - 1.030 GLU U QUAL Normal Normal BLOOD Negative Negative KETONES 20 mg/dL (A) Negative PROTEIN 30 mg/dL (A) Negative UROBILIN Normal Normal BILIRUBIN Negative Negative NITRITE Negative Negative LEUK FLORA Negative Negative RBC/HPF 3 0 - 3 HPF WBC/HPF 3 0 - 5 HPF BACTERIA Few (A) Negative MUCOUS Moderate (A) Negative LPF SQ EPITH 8 HPF CREATINE KINASE Collection Time: 09/04/20 8:59 AM Result Value Ref Range CK 127 33 - 194 U/L CBC WITH DIFF Collection Time: 09/04/20 9:01 AM Result Value Ref Range WBC 8.05 4.30 - 11.10 10*3/L RBC 4.51 3.93 - 5.25 10*6/L HGB 13.9 11.6 - 15.0 g/dL HCT 38.5 35.7 - 45.2 % MCV 85.4 80.6 - 95.5 fL MCH 30.8 25.9 - 32.8 pg MCHC 36.1 (H) 31.6 - 35.1 g/dL RDW-SD 38.5 (L) 39.0 - 49.9 fL RDW-CV 12.3 12.0 - 15.5 % PLT 309 166 - 358 10*3/L MPV 9.6 9.5 - 12.9 fL NRBC/100 WBC 0.0 0.0 - 10.0 /100 WBCs NRBC x10^3 <0.01 10*3/L GRAN MAT (NEUT) % 63.8 % IMM GRAN % 0.10 % LYMPH % 27.0 % MONO % 8.8 % EOS % 0.1 % BASO % 0.2 % GRAN MAT x10^3(ANC) 5.13 1.88 - 7.09 10*3/uL IMM GRAN x10^3 <0.03 0.00 - 0.06 10*3/uL LYMPH x10^3 2.17 1.32 - 3.29 10*3/uL MONO x10^3 0.71 0.33 - 0.92 10*3/uL EOS x10^3 <0.03 (L) 0.03 - 0.39 10*3/uL BASO x10^3 <0.03 0.01 - 0.07 10*3/uL POCT TEST Collection Time: 09/04/20 9:08 AM Result Value Ref Range POCT PREG Negative On board controls acceptable with C Line Yes POCT PREG LOT # [id number] POCT PREG TEST DATE 02/12/2022 Imaging No results found for this visit on 09/04/20. Orders and Treatments Orders Placed This Encounter Procedures ADC / [facility] - DRUG SCREEN TRIAGE ACETAMINOPHEN COMP. METABOLIC PANEL (16491) ETHANOL SALICYLATE URINALYSIS CREATINE KINASE CBC WITH DIFF POCT TEST Orders Placed This Encounter Medications NaCl 0.9% (NS) bolus infusion 1,000 mL Procedures See ED Procedure Note Notes & MDM Patient was evaluated for an emergency medical condition related to Ingestion . Differential diagnoses considered by presenting complaints but not limited to: Polysubstance abuse, Sympathomimetic toxidrome, and others. ED Course as of Sep 04 1102MonSep 04, 2020 0935 Meth U(!): Presumptive Positive [PS] 0935 AMP METH(!): Presumptive Positive [PS] 0935 BENZO U(!): Presumptive Positive [PS] ED Course User Index [PS] Keaton Schroeder DO Labs:were ordered, and resulted, any relevant abnormalities were considered. Imaging:Was not ordered IV fluids: tachycardia Procedures:were not performed. EKG: Time:8:51 Rate:90 Rhythm:NSR [place]/Intervals/Morphology:normal axis, intervals, ST segments. Impression:Normal ekg Comparison:none. Interpreted. Rhythm Strip Interpretation: 107 Sinus Tachycardia Pulse Oximetry room air Assessment: Zack Persaud is a 29 year old female with polysubstance abuse and sympathomimetic toxidrome. Symptoms improved after observation in ED. Counseled on drug abuse and risks. Return precautions given if symptoms worsen as documented in the discharge instructions. History, physical exam findings, results of visit, differential diagnosis, medication regimens and plan of future care have been considered. Additional MDM may be found in the ED course. Differential diagnosis considered and final disposition made based on information gathered during evaluation and may not be completely ruled out or specifically listed. Vital signs were rechecked before final disposition and determined to be expected for patient's clinical condition.. Diagnosis ICD-10-CM ICD-9-CM 1. Adverse effect of sympathomimetics, initial encounter T44.905A E941.2 2. Polysubstance abuse F19.10 305.90 Disposition & Follow Up ED Disposition ED Disposition Condition Comment Disch - Home Stable Patient's Medications START taking these medications No medications on file CONTINUE taking these medications which have NOT CHANGED HYDROXYZINE 25 MG CAPSULE Take 25 mg by mouth 3 (three) times daily as needed for Itching. IBUPROFEN 600 MG TABLET Take 1 tablet by mouth every 6 (six) hours as needed for Pain (scale 4-6). START taking Modified Medications as Prescribed No medications on file STOP taking these medications No medications on file Contact information for follow-up Huong Gu MD Specialty: FM-FAMILY MEDICINE Relationship: PCP - General [facility] [address] [place] [address] [place] [phone] [facility] Specialty: UNKNOWN PHYSICIAN SPECIALTY [address] [place] [phone] ADC-Emergency Department Specialty: Emergency Medicine [address] [facility] [address] Instructions: If symptoms worsen as documented in the discharge Keaton Schroeder DO 09/04/2020 9:07 AM ACTIVE COVID-19 PANDEMIC. documented in this encounter Miscellaneous Notes ED Nurse Note - Lucien Gamble RN - 09/04/2020 11:15 AM CSTDischarge instructions given. Advised patient that she tested positive for Meth and she stated " I was experimenting". documented in this encounter Plan of Treatment [...] Priority Date/Time Associated Comments Diagnosis POCT TEST HCAVA 09/04/2020 9:08 Adverse effect of Results for this AM PLASTICS PROCESS HAND sympathomimetics, procedure are in initial encounter the result s section. CBC WITH DIFF STAT 09/04/2020 9:01 Adverse effect of Resul ts for this AM PLASTICS PROCESS HAND sympathomimetics, procedure are in initial encounter the result s section. ADC / [facility] - DRUG STAT 09/04/2020 8:59 Adverse effect of Re sults for this SCREEN TRIAGE AM PLASTICS PROCESS HAND sympathomimetics, procedure are in initial encounter the result s section. URINALYSIS STAT 09/04/2020 8:59 Adverse effect of Result s for this AM PLASTICS PROCESS HAND sympathomimetics, procedure are in initial encounter the result s section. ETHANOL STAT 09/04/2020 8:59 Adverse effect of Result s for this AM PLASTICS PROCESS HAND sympathomimetics, procedure are in initial encounter the result s section. SALICYLATE STAT 09/04/2020 8:59 Adverse effect of Result s for this AM PLASTICS PROCESS HAND sympathomimetics, procedure are in initial encounter the result s section. ACETAMINOPHEN STAT 09/04/2020 8:59 Adverse effect of Resul ts for this AM PLASTICS PROCESS HAND sympathomimetics, procedure are in initial encounter the result s section. COMP. METABOLIC PANEL STAT 09/04/2020 8:59 Adverse effect of Results for this (45578) AM PLASTICS PROCESS HAND sympathomimetics, procedure are in initial encounter the result s section. CREATINE KINASE STAT 09/04/2020 8:59 Adverse effect of Res ults for this AM PLASTICS PROCESS HAND sympathomimetics, procedure are in initial encounter the result s section. documented in this encounter Results POCT TEST (09/04/2020 9:08 AM PLASTICS PROCESS HAND) Pathologist Sig nature POCT PREG Negative On board controls acceptable Yes with C Line POCT PREG LOT # [id number] POCT PREG TEST DATE 02/12/2022 Specimen Urine - URINE, CLEAN CATCH CBC WITH DIFF (09/04/2020 9:01 AM PLASTICS PROCESS HAND) Pathologist Sig [facility] WBC 8.05 4.30 - 11.10 [facility] 10*3/L [facility] RBC 4.51 3.93 - 5.25 [facility] 10*6/L [facility] HGB 13.9 11.6 - 15.0 [facility] g/dL [facility] HCT 38.5 35.7 - 45.2 % [facility] MCV 85.4 80.6 - 95.5 fL [facility] MCH 30.8 25.9 - 32.8 pg [facility] MCHC 36.1 (H) 31.6 - 35.1 [facility] g/dL [facility] RDW-SD 38.5 (L) 39.0 - 49.9 fL [facility] RDW-CV 12.3 12.0 - 15.5 % [facility] PLT 309 166 - 358 [facility] 10*3/L [facility] MPV 9.6 9.5 - 12.9 fL [facility] NRBC/100 WBC 0.0 0.0 - 10.0 /100 [facility] WBCs [facility] NRBC x10^3 <0.01 10*3/L [facility] GRAN MAT (NEUT) % 63.8 % [facility] IMM GRAN % 0.10 % [facility] LYMPH % 27.0 % [facility] MONO % 8.8 % [facility] EOS % 0.1 % [facility] BASO % 0.2 % [facility] GRAN MAT x10^3(ANC) 5.13 1.88 - 7.09 [facility] 10*3/uL [facility] IMM GRAN x10^3 <0.03 0.00 - 0.06 [facility] 10*3/uL [facility] LYMPH x10^3 2.17 1.32 - 3.29 [facility] 10*3/uL [facility] MONO x10^3 0.71 0.33 - 0.92 [facility] 10*3/uL [facility] EOS x10^3 <0.03 (L) 0.03 - 0.39 [facility] 10*3/uL [facility] BASO x10^3 <0.03 0.01 - 0.07 [facility] 10*3/uL [facility] Specimen Blood - ARM, RIGHT Performing Organization Address City/State/Zipcode Phone Number [facility] CLIA: [id number] [place] [address] CREATINE KINASE (09/04/2020 8:59 AM PLASTICS PROCESS HAND) Pathologist Sig nature CK 127 33 - 194 U/L [facility] Specimen Blood - ARM, RIGHT Performing Organization Address [facility] Phone Number [facility] CLIA: [id number] [place] [address] URINALYSIS (09/04/2020 8:59 AM PLASTICS PROCESS HAND) Pathologist Sig nature APPEARANCE Hazy (A) Clear [facility] COLOR Deborah (A) Yellow [facility] PH 5.0 4.8 - 8.0 [facility] SP GRAVITY 1.035 (H) 1.003 - 1.030 [facility] GLU U QUAL Normal Normal [facility] BLOOD Negative Negative [facility] KETONES 20 mg/dL (A) Negative [facility] PROTEIN 30 mg/dL (A) Negative [facility] UROBILIN Normal Normal [facility] BILIRUBIN Negative Negative [facility] NITRITE Negative Negative [facility] LEUK FLORA Negative Negative [facility] RBC/HPF 3 0 - 3 HPF [facility] WBC/HPF 3 0 - 5 HPF [facility] BACTERIA Few (A) Negative [facility] MUCOUS Moderate (A) Negative LPF [facility] SQ EPITH 8 HPF [facility] Specimen Urine - URINE, CLEAN CATCH Performing Organization Address [facility] Phone Number [facility] CLIA: [id number] [place] [address] SALICYLATE (09/04/2020 8:59 AM PLASTICS PROCESS HAND) Pathologist Sig nature SALICYLATE <10 mg/L [facility] [place] [facility] Specimen Blood - ARM, RIGHT Narrative Performed At Therapeutic Range: [facility] Analgesic and Antipyretic Use 20-100 mg/L Anti-Inflammatory Use 100-250 mg/L Toxic Range: Greater than 300 mg/L Performing Organization Address [facility] Phone Number [facility] CLIA: [id number] [place] [address] ETHANOL (09/04/2020 8:59 AM PLASTICS PROCESS HAND) Pathologist Sig nature ALCOHOL <10 mg/dL [facility] Specimen Blood - ARM, RIGHT Narrative Performed At <10 Negative [facility] 50-100 Toxic >100 Depression of PER DIEM RN >400 Fatalities Reported Performing Organization Address City/State/Zipcode Phone Number [facility] CLIA: [id number] [place] [address] LABORATORY [address] [facility] COMP. METABOLIC PANEL ([id number]) (09/04/2020 8:59 AM PLASTICS PROCESS HAND) Pathologist Sig nature NA 140 135 - 145 [facility] mmol/L [facility] K 3.4 (L) 3.5 - 5.0 [facility] mmol/L [facility] CL 103 98 - 108 mmol/L [facility] CO2 TOTAL 23 23 - 31 mmol/L [facility] AGAP 14 2 - 16 [facility] BUN 10 7 - 23 mg/dL [facility] GLUCOSE 108 70 - 110 mg/dL [facility] CREATININE 0.70 0.50 - 1.04 [facility] mg/dL [facility] TOTAL BILI 0.7 0.1 - 1.1 mg/dL [facility] CALCIUM 10.4 8.6 - 10.6 [facility] mg/dL [facility] T PROTEIN 8.8 (H) 6.3 - 8.2 g/dL [facility] ALBUMIN 5.1 (H) 3.5 - 5.0 g/dL [facility] ALK PHOS 59 34 - 122 U/L [facility] ALTv 20 5 - 35 U/L [facility] AST(SGOT) 28 13 - 40 U/L [facility] eGFR Calculation 98.9 mL/min/1.73m2 [facility] ([facility] [place]) eGFR Calculation 119.9 mL/min/1.73m2 [facility] () [facility] Specimen Blood - ARM, RIGHT Narrative Performed At Association of Glomerular Filtration Rate (GFR) [facility] and Staging of Kidney Disease* [...] abnormalities in imaging tests). Performing Organization Address City/[facility] Phone Number [facility] CLIA: [id number] [place] [address] [place] [address] ACETAMINOPHEN (09/04/2020 8:59 AM PLASTICS PROCESS HAND) Pathologist Sig nature ACETAMINOP <10.0 (L) 10.0 - 30.0 ug/mL [facility] Specimen Blood - ARM, RIGHT Narrative Performed At Toxic: Greater than 200 ug/mL @ 4 hour post [facility] ingestion or greater than 50 ug/mL @ 12 hour post ingestion Performing Organization Address [facility] Phone Number [facility] CLIA: [id number] [place] [address] LABORATORY [address] [facility] ADC / [facility] - DRUG SCREEN TRIAGE (09/04/2020 8:59 AM PLASTICS PROCESS HAND) BENZO U Presumptive Negative [facility] Positive (A) HOSPITAL [facility] RENE U Negative Negative [facility] AMPHET Presumptive Negative [facility] Positive (A) HOSPITAL LABORATORY THC Negative Negative [facility] METHADONE Negative Negative [facility] Meth U Presumptive Negative [facility] Positive (A) HOSPITAL LABORATORY OPIATES Negative Negative [facility] Cocaine Metabolite Negative Negative [facility] PROPOXY Negative Negative [facility] Tric U Negative Negative [facility] PCP Negative Negative [facility] OXYCOD Negative Negative [facility] Specimen Urine - URINE, CLEAN CATCH Narrative Performed At Urine Drug Cutoff Ranges [facility] Benzodiazepines: 150 ng/mL Barbiturates: 200 ng/mL Amphetamine: 500 ng/mL Cannabinoids: 50 ng/mL Methadone: 200 ng/mL Methamphetamine: 500 ng/mL Opiates: 100 ng/mL or 2000 ng/mL Cocaine: 150 ng/mL Propoxyphene: 300 ng/mL Tricyclics: 300 ng/mL Oxycodone: 100 ng/mL PCP: 25 ng/mL The results are to be used only for medical (i.e., treatment) purposes. Unconfirmed screening results must not be used for non-medical purposes (e.g., employment testing, legal testing). Performing Organization Address City/State/Zipcode Phone Number [facility] CLIA: [id number] [place] [address] documented in this encounter Visit Diagnoses Diagnosis Adverse effect of sympathomimetics, init ial encounter - Primary Polysubstance abuse Other, mixed, or unspecified nondependen t drug abuse, unspecified documented in this encounter Administered Medications Medication Order MAR Action Action Date Dose Rate Site NaCl 0.9% (NS) bolus New Bag 09/04/2020 9:05 AM PLASTICS PROCESS HAND 1,000 mL 99 9 mL/hr infusion 1,000 mL at 999 mL/hr, 1,000 mL, IV Infusion, ONCE, 1 dose, Mon09/04/20 at 0900, STAT documented in this encounter Insurance Payer Benefit Plan / Subscriber ID Effective Phone Address T ype Group Dates [facility] [id number] 2020-Pre Medica re HEALTHCARE - HEALTHCARE sent Adv HM O MANAGED DUAL COMPLETE MEDICARE HMO [place] MED[place] OF [id number] 2019-Pres [phone] Medi caid [place] ent [phone] [place] [address] documented as of this encounter
--- OUTSIDE RECORDS SUMMARY | 2020-09-04 22:18 | XMS REPORT | Summary of Care ---
:1990 Author Organization [facility] - [facility] Address [address] [place] [address] Care Team Providers Name Role Phone Paulette Gu MD Primary Care Provider Reason for Visit Reason Comments LAB Encounter Details Date Type Department Care Team Description 08/18/2020 Laboratory Only [facility] Family Jorge Arrington, JIGGER MACHINE OPERATOR [address] [place] [address] [address] Contact with or Medicine - [facility], Adc Fam Pob I exposure to viral [address] [place] [address] disease (P rimary Dx) [place] [address] Allergies Active Allergy Reactions Severity Noted Date Comments Latex Hives 05/29/2019 Morphine Swelling 05/29/2019 Ziprasidone Hcl Swelling 05/29/2019 documented as of this encounter (statuses as of 08/18/2020) Medications Medication Sig Dispensed Refills Start Date [...] as of this encounter (statuses as of 08/18/2020) Active Problems Problem Noted Date 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/2020 documented as of this encounter (statuses as of 08/18/2020) Social History Tobacco Use Types Packs/Day Years Used Date Light Tobacco Smoker Smokeless Tobacco: Never Used Sex Assigned at Date Recorded Not on file documented as of this encounter Last Filed Vital Signs Vital Sign Reading Time Taken Comments Blood Pressure - - Pulse 91 08/18/2020 7:00 AM PARK GUARD Temperature - - Respiratory Rate 16 08/18/2020 7:00 AM PARK GUARD Oxygen Saturation 98% 08/18/2020 7:00 AM PARK GUARD Inhaled Oxygen Concentration - - Weight - - Height - - Body Mass Index - - documented in this encounter Nursing Notes Noemi Samuels MA - 08/18/2020 8:40 AM CSTQutoby Persaud is a 29 year old female here for a Rule Out Covid-19 Nasopharyngeal Swab. Patient educated on plan of care for visit, swabbing technique, risks and benefits of test and length of timeto receive results. Verbal consent obtained to perform test. CDC Fact Sheet for Patients provided topatient. All droplet and contact precautions taken with appropriate PPE worn while interacting with patient. - Goggles - N95 Mask - Gloves - Gown RR=16 % O2 Sat=98 Patient swabbed using appropriate nasopharyngeal technique, and patient tolerated well. Patient was discharged in stable condition. Noemi Samuels MA 08/18/2020 8:40 AM GUARD documented in this encounter Plan of Treatment Date Type Specialty Care Team Description 08/25/2020 Office Visit Family Medicine Diane Gu MD [address] [place] [address] [phone] Name Type Priority Associated Diagnoses Order S chedule COVID-19 (NAAT MOLECULAR LAB Routine Contact with or exposure Expected: 08/18/2020, TESTING) to viral disease Expires: Health Maintenance Due Date Last Done Comments VARICELLA VACCINES (1 of 2 - 2-dose childhood series) 12/17/1991 PNEUMOCOCCAL 0-64 YEARS COMBINED SERIES (1 of 1 - 1996 PPSV23) Depression Screening 2002 DTaP,Tdap,and Td Vaccines (1 - Tdap) 2009 PAP SMEAR 12/17/2011 INFLUENZA VACCINE (#1) 2020 documented as of this encounter Results Not on filedocumented in this encounter Visit Diagnoses Diagnosis Contact with or exposure to viral diseas e - Primary Contact with or exposure to other viral diseases documented in this encounter Additional Health Concerns Infection Onset Date Last Indicated Resolved Time COVID-19 Rule Out 08/18/2020 08/18/2020 documented as of this encounter Insurance Payer Benefit Plan / Subscriber ID Effective Phone Address T ype Group Dates [facility] [id number] 2020-Pre Medica re HEALTHCARE - HEALTHCARE sent Adv HM O MANAGED DUAL COMPLETE MEDICARE HMO [facility] MEDICAID OF [id number] 2019-Pres [phone] Medi [facility] ent [phone] [place] [address] documented as of this encounter
--- OUTSIDE RECORDS SUMMARY | 2020-09-04 22:18 | XMS REPORT | Summary of Care ---
:1990 Author Organization [facility] - [facility] Address [address] [place] [address] Care Team Providers Name Role Phone Paulette Gu MD Primary Care Provider Reason for Visit Reason Comments Ingestion Encounter Details Date Type Department Care Team Description 09/04/2020 Emergency ADC-Emergency [place], [place], Anxiety (Pr imary Dx); Department [employer] Drug-induced insomnia; [address] [place] [address] [address] [place] [address] [facility] [place] [address] [place] [address] [place], [place] [id number] Allergies Active Allergy Reactions Severity Noted Date [...] inflammatory disease) needed for Pain (scale 4-6). diphenhydrAMINE Take 1 capsule 20 capsule 0 09/04/2020 Active (BENADRYL) 25 mg by mouth every 6 capsuleIndications: (six) hours as Anxiety, Drug-induced needed for insomnia Allergies or Sleep. documented as of this encounter (statuses as [...] in contact with No / Unsure 09/04/2020 7:11 PM CLERK someone who was confirmed or suspected to have Coronavirus / COVID-19? documented as of this encounter Last Filed Vital Signs Vital Sign Reading Time Taken Comments Blood Pressure 179/115 09/04/2020 7:14 PM CLERK Pulse 101 09/04/2020 7:14 PM CLERK Temperature 37.4 C (99.4 F) 09/04/2020 7:14 PM CLERK Respiratory Rate 20 09/04/2020 7:14 PM CLERK Oxygen Saturation 100% 09/04/2020 7:14 PM CLERK Inhaled Oxygen Concentration - - Weight 65.8 kg (145 lb) 09/04/2020 7:14 PM CLERK Height - - Body Mass Index 26.52 06/24/2020 7:57 PM CDT documented in this encounter Discharge Instructions Tristen Rincon FNP - 09/04/2020DO NOT TAKE ANY MEDICATIONS THAT ARE NOT PRESCRIBED TO YOU. AttachmentsThe following attachments cannot be sent through Care Everywhere. Anxiety, Your Body's Response to (Maltese)documented in this encounter ED Notes Lucien Gamble RN - 09/04/2020 7:11 PM CSTPatient c/o feeling like her throat is closing after taking Meth. Patient was seen in this ER earlier today for the same complaint. Patient speaking in full sentences. O2 sats 100% HR 101. K documented in this encounter Miscellaneous Notes ED Nurse Note - Omaira Quezada RN - 09/04/2020 8:47 PM CSTPt given printed and verbal discharge instructions regarding anxiety, drug induced insomnia, and methamphetamine abuse, encouraged hydration. Prescriptions provided. Pt verbalized understanding of instructions, pt awake alert oriented, resp reg unlabored, skin w/d, color appropriate for race, moves all ext well, pt encouraged to follow up with PCP. Advised to seek medical attention for new/prolonged/worsening of symptoms. Symptoms addressed. No adverse reaction to meds given in ER noted upon discharge. Pt leaving amb with steady gait, in no apparent distress. Left discharge paperwork. documented in this encounter Plan of Treatment Health Maintenance Due Date Last Done Comments VARICELLA VACCINES (1 of 2 - 2-dose childhood series) 12/17/1991 PNEUMOCOCCAL 0-64 YEARS COMBINED SERIES (1 of 1 - 1996 PPSV23) Depression Screening 2002 DTaP,Tdap,and Td Vaccines (1 - Tdap) 2009 PAP SMEAR 12/17/2011 INFLUENZA VACCINE (#1) 2020 documented as of this encounter Procedures Procedure Name Priority Date/Time Associated Diagnosis Comme nts CONSENT/REFUSAL FOR Routine 09/04/2020 7:01 PM CLERK DIAGNOSIS AND TREATMENT documented in this encounter Results Not on filedocumented in this encounter Visit Diagnoses Diagnosis Anxiety - Primary Anxiety state, unspecified Drug-induced insomnia Methamphetamine abuse Nondependent amphetamine or related acti ng sympathomimetic abuse, unspecified documented in this encounter Administered Medications Medication Order MAR Action Action Date Dose Rate Site diphenhydrAMINE (BENADRYL) tablet Given 09/04/2020 8:05 PM CLERK 25 mg 25 mg 25 mg, Oral, ONCE, 1 dose, Mon09/04/20 at 2115, [place]AVA documented in this encounter Insurance Payer Benefit Plan / Subscriber ID Effective Phone Address T e [facility] [id number] 2020-Pre Medica re HEALTHCARE - HEALTHCARE sent Adv HM O MANAGED DUAL COMPLETE MEDICARE HMO [facility] MEDICAID OF [id number] 2019-Pres [phone] [address] Medi caid [place] ent [phone] [place] [address] documented as of this encounter
--- OUTSIDE RECORDS SUMMARY | 2020-09-04 22:18 | XMS REPORT | Summary of Care ---
:1990 Author Organization [facility] - [facility] Address [address] [place] [address] Care Team Providers Name Role Phone Paulette Gu MD Primary Care Provider Reason for Visit Reason Comments LAB Encounter Details Date Type Department Care Team Description 08/18/2020 Laboratory Only [facility] Family Jorge Arrington, TRACTOR OPERATOR LASER LEVELING [address] [place] [address] [address] Contact with or Medicine - [facility], Adc Fam Pob I exposure to viral [address] [place] [address] disease (P rimary Dx) [place] [address] Allergies Active Allergy Reactions Severity Noted Date Comments Latex Hives 05/29/2019 Morphine Swelling 05/29/2019 Ziprasidone Hcl Swelling 05/29/2019 documented as of this encounter (statuses as of 08/19/2020) Medications Medication Sig Dispensed Refills Start Date [...] as of this encounter (statuses as of 08/19/2020) Active Problems Problem Noted Date 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/2020 documented as of this encounter (statuses as of 08/19/2020) Social History Tobacco Use Types Packs/Day Years Used Date Light Tobacco Smoker Smokeless Tobacco: Never Used Sex Assigned at Date Recorded Not on file documented as of this encounter Last Filed Vital Signs Vital Sign Reading Time Taken Comments Blood Pressure - - Pulse 91 08/18/2020 7:00 AM CANOPY INSPECTOR Temperature - - Respiratory Rate 16 08/18/2020 7:00 AM CANOPY INSPECTOR Oxygen Saturation 98% 08/18/2020 7:00 AM CANOPY INSPECTOR Inhaled Oxygen Concentration - - Weight - - Height - - Body Mass Index - - documented in this encounter Nursing Notes Noemi Samuels MA - 08/18/2020 8:40 AM CSTZack Persaud is a 29 year old female [...] condition. Noemi Samuels MA 08/18/2020 8:40 AM PY INSPECTOR documented in this encounter Plan of Treatment Date Type Specialty Care Team Description 08/25/2020 Office Visit Family Medicine Diane Gu MD [address] [place] [phone] Health Maintenance Due Date Last Done Comments VARICELLA VACCINES (1 of 2 - 2-dose childhood series) 12/17/1991 PNEUMOCOCCAL 0-64 YEARS COMBINED SERIES (1 of 1 - 1996 PPSV23) Depression Screening 2002 DTaP,Tdap,and Td Vaccines (1 - Tdap) 2009 PAP SMEAR 12/17/2011 INFLUENZA VACCINE (#1) 2020 documented as of this encounter Procedures Procedure Name Priority Date/Time Associated Comments Diagnosis LAB ONLY COVID Routine 08/18/2020 8:34 Contact with or Result s for this INTERPRETATION AM CANOPY INSPECTOR exposure to viral procedur e are in disease the results section. COVID-19 (NAAT Routine 08/18/2020 8:34 Contact with or Result s for this MOLECULAR TESTING) AM CANOPY INSPECTOR exposure to viral proc edure are in disease the results section. documented in this encounter Results LAB ONLY COVID INTERPRETATION (08/18/2020 8:34 AM CANOPY INSPECTOR) COVID DMT Interpretation/Recommendations [facility] Tests (PCR) for Active Infection by COVID-19 Virus: This result indicates that t he patient has been tested negative for the COVID- 19 virus on one occasion. The most likely interpretation, for approximately two- thirds of patients with a negative test, is that the patient is truly ne gative and has not been infected with the COVID-19 virus. However, for those tested using a nasopharyngeal sample, there is approximately a [id number] chance that the patie nt was infected and the resu lt of the first test is a false negative. This occurs because the virus is predominantly in the lung and out of reach of the nasopharyngeal swab. If the patient becomes progressively more symptomatic, a repeat PCR test debora uld be performed. Tests for IgM and/or IgG Antibodies to COVID-19 Virus: A. A test for IgM antibod y to the COVID-19 virus is likely to be highly informative at this time. IgM antibodies to the COVID-19 virus identified in a high performing test, usually an JOVI or chemil uminescence based assay, debora uld appear in most patients who are truly infected within approximately a week from the onset of symptoms, and in nearly all patients 2 to 3 weeks after symptoms begin. If th e high performing IgM test i s positive, even if the initial PCR test for active infection was negative, it is highly probable the patient has been infected with the virus at some point. A repeat PCR regina t to determine if the patien t has recovered from the infection would be important to perform if the IgM [id number] antibody test is positive. B. A test for IgG antibod ies to the COVID-19 virus was not performed and is also likely to be informative. The sample for the IgG antibody test should be collected 2 or more weeks post onset of sympt oms. It is the IgG antibodie s that can confer long-term immunity to infectious agents. However, at this time, it is not known if the production of IgG antibodies indicates whether the patient is immun e to future infections with the COVID-19 virus. It is also not known how long IgG antibodies to the COVID-19 virus persist, and therefore the length of immunity to future COVID-19 infections. C. Although it is uncommo n, some patients cannot ever mount an antibody response to infectious agents, such as COVID-19. If there are persistently negative results for IgM and IgG antibodies, this may be the explanation. Interpretation Result Comments: These interpretation comment s are based upon aggregate data pooled from the [facility] medical record including both current and prior COVID-19 related testing results for the following tests offered at our institution: A. Tests for the Identification of SARS-CoV-2 RNA: SARS-CoV-2 PCR assays includ [employer] Aptima, Meitu Fusion, [employer] RealTime, and [employer] Xpert Xpress. SARS-CoV-2 Rapid ID NOW by the ID NOW assay. B. Tests for the Identification of SARS-CoV-2 Antibodi es: Chemiluminescent immunoassay s including Access SARS-CoV-2 IgM (DXI 600), JustFabS Igym-PMFA-BgH-2 IgG (Vitros 5600 and Vitros 3600), and Mcallister SARS-CoV-2 IgG (MEDICAL RECORD TRANSCRIBER I System). These interpretation comment s assume that only the above testing was utilized and that the approved acceptable specimen type(s) were used for a given test. These interpretations are au topopulated into Reveal Data based on computerized algorithms matching an interpretation code number to the patient's set of test results. While a clinical pathologist evaluates the combinations for clinical a ccuracy, clinical correlation is recommended as it may not take into account very remote prior testing. Furthermore, it does not consider testing a patient may have had outside of the [facility] system. Additionally, it should be n oted that the computerized algorithm treats the results for PCR testing and Rapid ID NOW testing (also PCR) synonymously, and thus, refers to both testing methodologies as PC R tests. Given that the sens itivity of [facility]'s Rapid ID NOW testing platform is analogous to PCR-based methods, for most patients this has no significant implications for clinical decision making. Howantoinee r, if a patient with a negat yokasta result for Rapid ID NOW continues to have a clinical presentation consistent with COVID-19 infection, negative results should be treated as presumptive negative and a new specimen should be tested with alternative PCR molecu lar test. If results for COVID-19 infe ction continue to be negative in the context of a clinical presentation consistent with a viral respiratory illness, it is possible the patient may have an infection with ano ther respiratory virus, such as influenza, rhinovirus, other coronaviruses that cause the common cold, etc. Influenza testing and if clinically indicated a respiratory pathogen panel may be beneficial in this setting. COVID Results SARS-CoV-2 NAAT (no units) [facility] RY Date Value SERVICES 08/18/2020 Not Detected Specimen Swab - NASOPHARYNGEAL SWAB Performing Organization Address [facility] Cent[facility] Phone Number [facility] CLIA: [id number] [place], [place] [id number] [address] [place] [address] COVID-19 (NAAT MOLECULAR TESTING) (08/18/2020 8:34 AM CANOPY INSPECTOR) Pathologist Sig willian SARS-CoV-2 NAAT Not Detected Not Detected [facility] Specimen Swab - NASOPHARYNGEAL SWAB Narrative Performed At [employer] SARS-CoV-2 Assay is a nucleic acid [facility] amplification test intended for the qualitative detect ion of RNA from SARS-CoV-2 from nasopharyngeal (ADDICTION MEDICINE PHYSICIAN) specimens . It is used under Emergency Use Authorizatio n (EUA) by FDA. A positive result is indicative of the presence of SARS-CoV-2 RNA. Clinical correlation with patient hi story and other diagnostic information is necessary to deter mine patient infection status. A negative (Not Detected) result does not preclude SARS-CoV-2 infection. Clinical correlation with jt ent history and other diagnostic information should be use d in patient management decisions. Invalid: Unable to generate a valid test result on thi s specimen. Please submit a new specimen for repeat te sting if clinically indicated. Performing Organization Address City/[facility]/Zipcode Phone Number [facility] CLIA: [id number] [place], [place] [id number] [address] [place] [address] documented in this encounter Visit Diagnoses Diagnosis Contact with or exposure to viral diseas e - Primary Contact with or exposure to other viral diseases documented in this encounter Additional Health Concerns Infection Onset Date Last Indicated Resolved Time COVID-19 Rule Out 08/18/2020 08/18/2020 08/19/2020 4: 25 AM CANOPY INSPECTOR documented as of this encounter Insurance Payer Benefit Plan / Subscriber ID Effective Phone Address T ype Group Dates [facility] [id number] 2020-Pre Medica re HEALTHCARE - HEALTHCARE sent Adv HM O MANAGED DUAL COMPLETE MEDICARE HMO [facility] MEDICAID OF [id number] 2019-Pres [phone] Medi caid [place] ent [phone] [place] [address] documented as of this encounter
[2020-09-04 22:45] LABS: Absolute Lymphocytes (CBC) 1.4 K/uL (0.7-4.9); Basophils % 0.6 % (0-1.3); Hematocrit 37.8 % (36.0-45.0); RBC Red Blood Cell Count 4.35 M/uL (3.86-4.86)
[2020-09-04 22:49] LABS: Protime INR 1.06
[2020-09-04] MEDS ORDERED: LORazepam 2 MG/ML VIAL ONE ×2 (22:50→23:34)
[2020-09-04] MEDS ORDERED: NA CHLORIDE 0.9% 1,000 ML ONE ×2 (22:50→23:39)
[2020-09-04 22:58] LABS: Urine Blood NEGATIVE (NEG); Urine Glucose NEGATIVE (NEG); Urine Protein 2+ (NEG); Urine Specific Gravity 1.025 (1.005-1.030)
[2020-09-04 23:26] LABS: Barbiturates NEGATIVE (NEGATIVE); Benzodiazepines POSITIVE (NEGATIVE); Cocaine NEGATIVE (NEGATIVE); METHAMPHETAM POSITIVE (NEGATIVE); Methadone NEGATIVE (NEGATIVE); Opiates NEGATIVE (NEGATIVE); Phencyclidine NEGATIVE (NEGATIVE); THC Cannibis NEGATIVE (NEGATIVE)
[2020-09-04 23:39] LABS: Albumin 4.1 g/dL (3.4-5.0); Bilirubin Direct 0.1 mg/dL (0-0.2); Bilirubin Total 0.6 mg/dL (0.2-1.0); Potassium 3.2 mmol/L (3.5-5.1); Protein, Total 7.9 g/dL (6.4-8.2)
--- NOTE | 2020-09-05 02:37 | ER ---
Nurse's Notes [facility] Name: Zack Persaud Age: 29 yrs Sex: Female : 1990 Arrival Date: 09/04/2020 Time: 22:15 Bed 6 Private MD: Diagnosis: Methamphetamine Abuse;Chest pain, unspecified Presentation: 09/04 22:15 Chief complaint: Patient states: 3 days ago me and my friend took some drugs rr5 methamphetamine and cocaine then took some fentanyl pills. now my heart feels like it's about to stop. I went to other [facility] with the same complaint they gave me pink pill 25 mg. 22:15 Coronavirus screen: Client denies travel out of the [place] in the last 14 days. At this rr5 time, the client does not indicate any symptoms associated with coronavirus-19. Ebola Screen: Patient negative for fever greater than or equal to 101.5 degrees Fahrenheit, and additional compatible Ebola Virus Disease symptoms Patient denies exposure to infectious person. Patient denies travel to an Ebola-affected area in the 21 days before illness onset. Initial Sepsis Screen: Does the patient meet any 2 criteria? HR > 90 bpm. Does the patient have a suspected source of infection? No. Patient's initial sepsis screen is negative. Risk Assessment: Do you want to hurt yourself or someone else? Patient reports no desire to harm self or others. Onset of symptoms was September 04, 2020. 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 - Social history:: Smoking status: Patient reports the use of cigarette tobacco products, 4-8 sticks, Patient uses street drugs, cocaine, Methamphetamine (Meth) Patient/guardian denies using alcohol. Screenin:41 Abuse screen: Denies threats or abuse. Denies injuries from another. Nutritional rr5 screening: No deficits noted. Tuberculosis screening: No symptoms or risk factors identified. Fall Risk IV access (20 points). Total Toribio Fall Scale indicates No Risk (0-24 pts). Assessment: 22:15 General: Appears in no apparent distress. uncomfortable, Behavior is anxious. Pain: rr5 Complains of pain in chest Pain does not radiate. Pain currently is 10 out of 10 on a pain scale. Quality of pain is described as aching, Pain began suddenly, Is intermittent. Neuro: Level of Consciousness is awake, alert, obeys commands, Oriented to person, place, time. Cardiovascular: Reports chest pain, Capillary refill < 3 seconds Patient's skin is warm and dry. Respiratory: Reports shortness of breath Airway is patent Respiratory effort is even, Respiratory pattern is hyperventilation tachypnea. GI: No signs and/or symptoms were reported involving the gastrointestinal system. : No signs and/or symptoms were reported regarding the genitourinary system. EENT: No signs and/or symptoms were reported regarding the EENT system. Derm: Skin is intact, is healthy with good turgor, Skin temperature is warm. Musculoskeletal: Circulation, motion, and sensation intact. Capillary refill < 3 seconds. 23:25 Reassessment: patient verbalized "I want to see my sister upstairs, walks outside her rr5 room, seen by ED provider with order made and carried out. patient reorient and agreed to go back to her room calmy. 09/05 00:00 Reassessment: Patient appears in no apparent distress at this time. snacks given with rr5 appetite. 01:00 Reassessment: Patient appears in no apparent distress at this time. standing on bedside rr5 calm not aggressive. awaiting for CT head without contrast. 02:34 Reassessment: Patient appears in no apparent distress at this time. Patient is alert, rr5 oriented x 3, equal unlabored respirations, skin warm/dry/pink. ED provider assess the patient together with her friend at bedside, awake alert no complaints made. 02:40 Reassessment: Patient appears in no apparent distress at this time. discharge rr5 instruction given and explained without complaints made. Vital Signs: 09/04 22:15 BP 165 / 130; Pulse 122; Resp 30; Temp 98; Pulse Ox 100% ; Weight 65.77 kg; Height 5 rr5 ft. 2 in. (157.48 cm); 22:30 BP 165 / 130; Pulse 112; Resp 24; Pulse Ox 100% ; rr5 23:29 BP 135 / 90; Pulse 98; Resp 19; Pulse Ox 100% ; rr5 23:55 BP 144 / 75; Pulse 105; Resp 16; Pulse Ox 100% ; rr5 09/05 01:00 BP 126 / 85; Pulse 92; Resp 16; Temp 97.; Pulse Ox 99% ; rr5 02:15 BP 121 / 62; Pulse 90; Resp 16; Pulse Ox 99% ; rr5 09/04 22:15 Body Mass Index 26.52 (65.77 kg, 157.48 cm) rr5 ED Course: 09/04 22:15 Patient arrived in ED. ag3 22:15 Arm band placed on. rr5 22:18 Donn Hurtado MD is Attending Physician. mh7 22:25 Patient has correct armband on for positive identification. Placed in gown. Bed in low rr5 position. Call light in reach. Side rails up X2. teacher adult education on. Pulse ox on. NIBP on. 22:30 EKG done, by ED staff, reviewed by Donn Hurtado MD. rr5 22:35 Inserted saline lock: 20 gauge in right hand, using aseptic technique. rr5 22:40 Poncho Britton RN is Primary Nurse. rr5 22:50 Triage completed. rr5 22:52 Urine collected: clean catch specimen, clear. rr5 23:00 Chest Single View XRAY In Process Unspecified. EDMS 09/05 00:00 No provider procedures requiring assistance completed. Patient maintains SpO2 rr5 saturation greater than 95% on room air. 01:52 Head Brain Wo Cont CT In Process Unspecified. EDMS 02:40 IV discontinued, intact, bleeding controlled, No redness/swelling at site. Pressure rr5 dressing applied. Administered Medications: 09/04 22:44 Drug: Ativan 1 mg Route: IVP; Site: right hand; rr5 23:40 Follow up: Response: No adverse reaction rr5 22:45 Drug: NS 0.9% 1000 ml Route: IV; Rate: 1000 ml; Site: right hand; rr5 23:45 Follow up: Response: No adverse reaction; IV Status: Completed infusion; IV Intake: rr5 1000ml 23:25 Drug: Ativan 1 mg Route: IVP; Site: right hand; rr5 09/05 00:25 Follow up: Response: No adverse reaction rr5 09/04 23:29 Drug: NS 0.9% 1000 ml Route: IV; Rate: 1 bolus; Site: right hand; rr5 09/05 00:20 Follow up: Response: No adverse reaction; IV Status: Completed infusion; IV Intake: rr5 1000ml 01:03 Drug: NS 0.9% 1000 ml Route: IV; Rate: 1000 ml; Site: right hand; rr5 01:40 Follow up: Response: No adverse reaction; IV Status: Completed infusion; IV Intake: rr5 1000ml Intake: 09/04 23:45 IV: 1000ml; Total: 1000ml. rr5 09/05 00:20 IV: 1000ml; Total: 2000ml. rr5 01:40 IV: 1000ml; Total: 3000ml. rr5 Outcome: 02:36 Discharge ordered by . mh7 02:40 Discharged to home ambulatory, with friend. rr5 02:40 Condition: stable 02:40 Discharge instructions given to family, Instructed on discharge instructions, follow up and referral plans. Demonstrated understanding of instructions, follow-up care. 02:42 Patient left the ED. rr5 Signatures: Dispatcher [employer] Che Abdullahi Poncho Zacarias RN RN rr5 Donn Hurtado MD MD mh7
--- NOTE | 2020-09-05 02:37 | EDPHYS ---
Physician Documentation [facility] Name: Zack Persaud Age: 29 yrs Sex: Female : 1990 Arrival Date: 09/04/2020 Time: 22:15 Bed 6 Private MD: ED Physician Donn Hurtado HPI: 09/04 22:44 This 29 yrs old Female presents to ER via Unassigned with complaints of Chest Pain. mh7 22:44 The patient or guardian reports chest pain that is located primarily in the substernal mh7 area. The pain does not radiate. Associated signs and symptoms: Pertinent negatives: abdominal pain, cough, diaphoresis, dizziness, headache, lower extremity pain, lower extremity swelling, lightheadedness, nausea, near syncope, palpitations, recent travel, shortness of breath, syncope, vomiting. The chest pain is described as aching. Duration: The patient or guardian reports a single episode, that is still ongoing. Modifying factors: The symptoms are alleviated by nothing. the symptoms are aggravated by nothing. Severity of pain: At its worst the pain was moderate last night, in the emergency department the pain is unchanged. 09/05 00:45 Patient states that she had been binging on methamphetamine and some type of pills a mh7 few days ago and has not slept. She also complains of feeling like her heart is not beating. She denies any injuries, SOB, abdominal pain, nausea, vomiting, fever, cough.. 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 - Social history:: Smoking status: Patient reports the use of cigarette tobacco products, 4-8 sticks, Patient uses street drugs, cocaine, Methamphetamine (Meth) Patient/guardian denies using alcohol. ROS: 09/05 00:45 Constitutional: Negative for fever, chills, and weight loss, Eyes: Negative for injury, mh7 pain, redness, and discharge, ENT: Negative for injury, pain, and discharge, Neck: Negative for injury, pain, and swelling, Respiratory: Negative for shortness of breath, cough, wheezing, and pleuritic chest pain, Abdomen/GI: Negative for abdominal pain, nausea, vomiting, diarrhea, and constipation, Back: Negative for injury and pain, : Negative for injury, bleeding, discharge, and swelling, MS/Extremity: Negative for injury and deformity, Skin: Negative for injury, rash, and discoloration, Neuro: Negative for headache, weakness, numbness, tingling, and seizure, Psych: Negative for depression, anxiety, suicide ideation, homicidal ideation, and hallucinations, Allergy/Immunology: Negative for hives, rash, and allergies, Endocrine: Negative for neck swelling, polydipsia, polyuria, polyphagia, and marked weight changes, Hematologic/Lymphatic: Negative for swollen nodes, abnormal bleeding, and unusual bruising. Exam: 00:45 Head/Face: Normocephalic, atraumatic. Eyes: Pupils equal round and reactive to light, mh7 extra-ocular motions intact. Lids and lashes normal. Conjunctiva and sclera are non-icteric and not injected. Cornea within normal limits. Periorbital areas with no swelling, redness, or edema. Neck: Trachea midline, no thyromegaly or masses palpated, and no cervical lymphadenopathy. Supple, full range of motion without nuchal rigidity, or vertebral point tenderness. No Meningismus. Chest/axilla: Normal chest wall appearance and motion. Nontender with no deformity. No lesions are appreciated. 00:45 Respiratory: Lungs have equal breath sounds bilaterally, clear to auscultation and percussion. No rales, rhonchi or wheezes noted. No increased work of breathing, no retractions or nasal flaring. Abdomen/GI: Soft, non-tender, with normal bowel sounds. No distension or tympany. No guarding or rebound. No evidence of tenderness throughout. Back: No spinal tenderness. No costovertebral tenderness. Full range of motion. Skin: Warm, dry with normal turgor. Normal color with no rashes, no lesions, and no evidence of cellulitis. MS/ Extremity: Pulses equal, no cyanosis. Neurovascular intact. Full, normal range of motion. Neuro: Awake and alert, GCS 15, oriented to person, place, time, and situation. Cranial nerves II-XII grossly intact. Motor strength 5/5 in all extremities. Sensory grossly intact. Cerebellar exam normal. Normal gait. 00:45 Constitutional: The patient appears in no acute distress, alert, awake, anxious. 00:45 Cardiovascular: Rate: tachycardic, Rhythm: regular, Pulses: no pulse deficits are appreciated, Heart sounds: normal, normal S1and S2, Edema: is not appreciated, JVD: is not appreciated. 00:45 Psych: Behavior/mood is cooperative, anxious, Affect is animated, Oriented to person, place, time, Patient has no thoughts/intents to harm self or others. Judgement / Insight is normal. Memory is normal. Delusions/hallucinations are not present. Vital Signs: 09/04 22:15 BP 165 / 130; Pulse 122; Resp 30; Temp 98; Pulse Ox 100% ; Weight 65.77 kg; Height 5 rr5 ft. 2 in. (157.48 cm); 22:30 BP 165 / 130; Pulse 112; Resp 24; Pulse Ox 100% ; rr5 23:29 BP 135 / 90; Pulse 98; Resp 19; Pulse Ox 100% ; rr5 23:55 BP 144 / 75; Pulse 105; Resp 16; Pulse Ox 100% ; rr5 09/05 01:00 BP 126 / 85; Pulse 92; Resp 16; Temp 97.; Pulse Ox 99% ; rr5 02:15 BP 121 / 62; Pulse 90; Resp 16; Pulse Ox 99% ; rr5 09/04 22:15 Body Mass Index 26.52 (65.77 kg, 157.48 cm) rr5 MDM: 02:32 Differential diagnosis: acute myocardial infarction, acute pericarditis, anxiety, chest mh7 wall pain, costochondritis, myocarditis, pericarditis, pneumonia, pneumothorax, Substance Abuse. HEART Score: History: Slightly Suspicious (0), ECG: Non specific repolarization disturbance / LBTB / PM (1), Age: < or = 45 years (0), Risk Factors: No Risk Factors Known (0), Troponin: < or = 1 x Normal Limit (0), Total Score = 1. Data reviewed: vital signs, nurses notes, lab test result(s), cardiac enzymes, CBC, drug level(s), electrolytes, urinalysis, EKG, radiologic studies, CT scan, plain films. Data interpreted: Pulse oximetry: on room air is 99 %. Interpretation: normal. Counseling: I had a detailed discussion with the patient and/or guardian regarding: the historical points, exam findings, and any diagnostic results supporting the discharge/admit diagnosis, lab results, radiology results, the need for outpatient follow up, to return to the emergency department if symptoms worsen or persist or if there are any questions or concerns that arise at home. 02:36 Patient medically screened. [facility] 09/04 22:31 Order name: Acetaminophen; Complete Time: 00:10 [facility] 09/04 22:31 Order name: Basic Metabolic Panel; Complete Time: 00:10 [facility] 09/04 22:31 Order name: CBC with Diff; Complete Time: 23:08 [facility] 09/04 22:31 Order name: ETOH Level; Complete Time: 23:08 [facility] 09/04 22:31 Order name: Hepatic Function; Complete Time: 00:10 [facility] 09/04 22:31 Order name: PT-INR; Complete Time: 23:08 [facility] 09/04 22:31 Order name: Ptt, Activated; Complete Time: 23:08 [facility] 09/04 22:31 Order name: Salicylate; Complete Time: 23:08 [facility] 09/04 22:31 Order name: Urine Drug Screen; Complete Time: 00:10 [facility] 09/04 22:31 Order name: CPK; Complete Time: 00:10 [facility] 09/04 22:32 Order name: Chest Single View XRAY [facility] 09/04 22:48 Order name: Troponin (emerg Dept Use Only); Complete Time: 00:10 [facility] 09/04 22:50 Order name: Urine Dipstick--Ancillary (enter results); Complete Time: 23:08 [facility] 09/04 22:50 Order name: Urine --Ancillary (enter results); Complete Time: 23:08 [facility] 09/04 22:31 Order name: EKG; Complete Time: 22:32 [facility] 09/04 22:31 Order name: EKG - Nurse/Tech; Complete Time: 22:45 [facility] 09/04 22:31 Order name: IV Saline Lock; Complete Time: 22:45 [facility] 09/04 22:31 Order name: Labs collected and sent; Complete Time: 22:45 [facility] 09/04 22:31 Order name: Urine Dipstick-Ancillary (obtain specimen); Complete Time: 22:45 [facility] 09/04 22:31 Order name: Urine Test (obtain specimen); Complete Time: 22:45 [facility] 09/05 00:54 Order name: Head Brain Wo Cont CT rr5 Administered Medications: 09/04 22:44 Drug: Ativan 1 mg Route: IVP; Site: right hand; rr5 23:40 Follow up: Response: No adverse reaction rr5 22:45 Drug: NS 0.9% 1000 ml Route: IV; Rate: 1000 ml; Site: right hand; rr5 23:45 Follow up: Response: No adverse reaction; IV Status: Completed infusion; IV Intake: rr5 1000ml 23:25 Drug: Ativan 1 mg Route: IVP; Site: right hand; rr5 09/05 00:25 Follow up: Response: No adverse reaction 5 09/04 23:29 Drug: NS 0.9% 1000 ml Route: IV; Rate: 1 bolus; Site: right hand; rr5 09/05 00:20 Follow up: Response: No adverse reaction; IV Status: Completed infusion; IV Intake: rr5 1000ml 01:03 Drug: NS 0.9% 1000 ml Route: IV; Rate: 1000 ml; Site: right hand; rr5 01:40 Follow up: Response: No adverse reaction; IV Status: Completed infusion; IV Intake: rr5 1000ml Disposition: 09/05/20 02:36 Discharged to Home. Impression: Methamphetamine Abuse, Chest pain, unspecified. - Condition is Stable. - Discharge Instructions: Nonspecific Chest Pain, Rwne-br-Efyu, Stimulant Use Disorder-Methamphetamines. - Medication Reconciliation Form, Thank You Letter, Antibiotic Education, Prescription Opioid Use form. - Follow up: Private Physician; When: 1 - 2 days; Reason: Worsening of condition, Recheck today's complaints, Continuance of care, Re-evaluation by your physician. - Problem is new. - Symptoms are resolved. Signatures: Dispatcher [employer] Poncho Zamudio RN RN rr5 Donn Hurtado MD MD mh7 Corrections: (The following items were deleted from the chart) 02:42 02:36 09/05/2020 02:36 Discharged to Home. Impression: Methamphetamine Abuse; Chest rr5 pain, unspecified. Condition is Stable. Forms are Medication Reconciliation Form, Thank You Letter, Antibiotic Education, Prescription Opioid Use. Follow up: Private Physician; When: 1 - 2 days; Reason: Worsening of condition, Recheck today's complaints, Continuance of care, Re-evaluation by your physician. Problem is new. Symptoms are resolved. mh7
--- NOTE | 2020-09-05 08:27 | RAD REPORT ---
EXAM DESCRIPTION: Felipe Single View09/04/2020 11:00 pm CLINICAL HISTORY: Palpitations COMPARISON: none FINDINGS: Mild right basilar opacities The left lung appears clear of acute infiltrate appear clear of acute infiltrate. The heart is normal size. A curvilinear lucency adjacent to the descending thoracic aorta IMPRESSION: Mild right basilar opacities may represent atelectasis or pneumonia Curvilinear lucency adjacent to the descending thoracic aorta probably representing normal aerated jong ng surrounded by pulmonary vessels. Small amount of pneumomediastinum can is another consideration
[2020-09-05 13:15] VITALS: TEMP 97; O2SAT 99
[2020-09-05 13:20] VITALS: BP 121/62
--- NOTE | 2020-09-07 11:15 | RAD REPORT ---
EXAM DESCRIPTION: CT - Head Brain Wo Cont - 09/05/2020 7:14 am CLINICAL HISTORY: CONFUSED COMPARISON: None. TECHNIQUE: Head/brain axial images acquired without contrast. Coronal and sagittal reformats created . Exam performed according to departmental dose-optimization program which includes automated exposur e control, adjustment of mA and/or kV according to patient size, and/or use of iterative reconstructi on technique. FINDINGS: No midline shift, mass effect, intracranial hemorrhage, or hydrocephalus. Brain parenchyma unremarkable. Paranasal sinuses and mastoid air cells clear. No skull fracture or significant skull lesion. IMPRESSION: Unremarkable CT head without contrast. 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 The interpreting r adiologist is fully responsible for the content of the report.
== END 2020-09-05 02:42 | disposition home or self-care (01) ==
LOC: ER 22:15
DX: F15.10 Other stimulant abuse, uncomplicated (principal); F17.210 Nicotine dependence, cigarettes, uncomplicated; Z88.5 Allergy status to narcotic agent; Z88.8 Allergy status to other drugs, medicaments and biological substances
CPT/HCPCS: 36415; 70450; 71045; 80048; 80076; 80307; 80320; 80329; 81003; 81025; 82550; 84484; 85025; 85610; 85730; 93005; 96361; 96374; 99285; J7030

== ENCOUNTER 2021-06-13 16:05 | Emergency (ER) | payer OTHER ==
--- OUTSIDE RECORDS SUMMARY | 2021-06-13 16:07 | XMS REPORT | Continuity of Care Document ---
:1990 Author Organization [facility] t Address [address] [place] [address] Care Team Providers Name Role Phone Asked, Pcp Primary Care Physician Unavailable [facility] Attending Clinician Singer LUA Attending Clinician Lab, Fam Pob I Attending Clinician Unavailable Problems Condition Condition Condition Status Onset Resolution Last Treating Co mments Source Name Details Category Date Date Treatment Clinician Date Abdominal Abdominal Disease Active [facility] pain pain [facility] 00[facility]: [facility]osp[facility] 00 l Ectopic Ectopic Disease Active [facility] 00 l Vaginal Vaginal Disease Active [facility] bleeding bleeding [facility] affecting affecting 00:00: Hosp millie early early 00 l 5 weeks 5 weeks Disease Active [facility] gestation gestation 8-[facility] of of 00:00: Hospita 00 l Pelvic Pelvic Disease Active [facility] pain pain [facility] affecting affecting 00:00: Hosp millie 00 l Status Status Disease Active [facility] post post 8-[facility] laparoscop laparoscop 00:00: Ho spita y y 00 l Ectopic Ectopic Disease Active [facility] , , 8-[facility] tubal tubal 00:00: Hospita 00 l Allergies, Adverse Reactions, Alerts Allergy Allergy Status Severity Reaction(s) Onset Inactive Treating Comm ents Source Name Type Date Date Clinician Ziprasid Propensi Active Swelling 2019- Meth mara one Hcl ty to 8-[facility] adverse 00:00: Hospita reaction 00 l s to drug Latex Propensi Active Hives [facility] ty to [facility] adverse 00:00: Hospita reaction 00 l s to drug Morphine Propensi Active Swelling Meth mara ty to 814 [facility] adverse 00:00: Hospita reaction 00 l s to drug Social History Social Habit Start Date Stop Date Quantity Comments Source History of tobacco Current every day [facility] Alcohol intake 2020-05-27 2020-05-27 Current drinker [facility] 00:00:00 00:00:00 of alcohol Hospital (finding) Cigarettes smoked 2020-05-27 2020-05-[address] current (pack per 00:00:00 00:00:00 Hospita l day) - Reported Tobacco use and 2020-05-27 2020-05-27 Never used [facility] exposure 00:00:00 00:00:00 Hospital Alcohol Comment 2019-05-29 2019-05-29 occasional [facility] 00:00:00 00:00:00 Hospital Sex Assigned At [birth year] [facility] 00:00:00 00:00:00 Hospital Smoking Status Start Date Stop Date Source Current every day smoker 2020-05-27 00:00:00 Met [facility] Medications Ordered Filled Start Stop Current Ordering Indication Dosage Frequency Signature Comments Components Source Medication Medication Date Date Medication? Clinician (SIG) Name Name No known No [facility] medications [facility]osp[facility] l Procedures This patient has no known procedures. Plan of Care Planned Activity Planned Date Details Comments Source Future Scheduled Test COVID-19 VACCINE (1) [facility] [code = COVID-19 VACCINE (1)] Future Scheduled Test Hepatitis C screening [facility] (procedure) [code = 188163001] Future Scheduled Test Screening for Metho [facility] malignant neoplasm of cervix (procedure) [code = 951319466] Future Scheduled Test INFLUENZA VACCINE [facility] [code = INFLUENZA VACCINE] Encounters Start End Encounter Admission Attending Care Care Encounter Source Date/Time Date/Time Type Type Clinicians Facility Department ID 2020-09-04 2020-09-04 [facility] [id number] 19:15:00 20:48:00 Tristen Rush [id number] [place] [id number] [place] [id number] 2020-09-04 2020-09-04 Emergency Schro[place], [facility] [id number] 08:40:00 11:20:00 Keaton Rush [id number] [place] [id number] [place] [id number] 2020-08-18 2020-08-18 Laboratory Lab, [facility] [id number] 08:30:53 08:55:02 Only Fam Pob I [facility] [id number] [place] [id number] [facility] [id number] [facility] [address] One Results This patient has no known results.
--- NOTE | 2021-06-13 16:42 | EDPHYS ---
Physician Documentation [facility] Name: Zack Persaud Age: 30 yrs Sex: Female : 1990 Arrival Date: 06/13/2021 Time: 16:11 Bed Waiting Private MD: ED Physician Roderick Zaidi HPI: 06/13 16:40 This 30 yrs old Black Female presents to ER via Ambulatory with complaints of Rash, pm1 Insect Bite. 16:40 The patient's rash thought to be caused by scabies. The rash is located on the body pm1 diffusely. The rash can be described as raised. Onset: The symptoms/episode began/occurred yesterday. Associated signs and symptoms: Pertinent positives: itching, Pertinent negatives: fever. Severity of symptoms: in the emergency department the symptoms are worse. The patient has experienced similar episodes in the past, a few times, and the symptoms today are exactly the same, to previous scabies. The patient has not recently seen a physician. Patient believes she got scabies exposure from a friends unsanitary couch and home. Historical: - Allergies: 16:32 Adderall; ss 16:32 Codeine; ss 16:32 Fentanyl; ss 16:32 Geodon; ss - Home Meds: 16:32 None [Active]; ss - PMHx: 16:32 None; ss - Immunization history:: Client reports having NOT received the Covid vaccine. - Social history:: Smoking status: Patient reports the use of cigarette tobacco products, denies chronic smoking, but will smoke occasionally. ROS: 16:40 Constitutional: Negative for fever, chills, and weight loss, Cardiovascular: Negative pm1 for chest pain, palpitations, and edema, Respiratory: Negative for shortness of breath, cough, wheezing, and pleuritic chest pain, Abdomen/GI: Negative for abdominal pain, nausea, vomiting, diarrhea, and constipation, MS/Extremity: Negative for injury and deformity. 16:40 Skin: Positive for rash, diffusely. 16:40 All other systems are negative. Exam: 16:40 Constitutional: This is a well developed, well nourished patient who is awake, alert, pm1 and in no acute distress. Head/Face: Normocephalic, atraumatic. 16:40 Cardiovascular: Exam negative for acute changes, Rate: normal, Rhythm: regular, Pulses: no pulse deficits are appreciated. 16:40 Respiratory: Exam negative for acute changes, respiratory distress, shortness of breath. 16:40 Skin: Appearance: normal except for affected area, lesion(s), probable papule(s) noted, located on the right arm and left arm. 16:40 Neuro: Exam negative for acute changes, Orientation: is normal, Mentation: is normal, Motor: is normal, moves all fours, Sensation: is normal, no obvious gross deficits, Gait: is steady, at a normal pace, without difficulty. Vital Signs: 16:32 Resp 17; Weight 76.66 kg; Height 5 ft. 2 in. (157.48 cm); Pain 0/10; ss 16:34 Pulse 78; Temp 97.9; Pulse Ox 100% ; ss 16:36 BP 137 / 100; ss 16:32 Body Mass Index 30.91 (76.66 kg, 157.48 cm) ss MDM: 16:40 Data reviewed: vital signs. Data interpreted: Pulse oximetry: on room air is 100 %. pm1 Interpretation: normal. Counseling: I had a detailed discussion with the patient and/or guardian regarding: the historical points, exam findings, and any diagnostic results supporting the discharge/admit diagnosis, the need for outpatient follow up, to return to the emergency department if symptoms worsen or persist or if there are any questions or concerns that arise at home. 16:41 Patient medically screened. pm1 16:43 ED course: Patient believes she has been exposed to scabies and would like the topical pm1 treatment for it. Administered Medications: No medications were administered Disposition Summary: 06/13/21 16:41 Discharge Ordered Location: Home pm1 Problem: new pm1 Symptoms: have improved pm1 Condition: Stable pm1 Diagnosis - Rash and other nonspecific skin eruption pm1 Followup: pm1 - With: Emergency Department - When: As needed - Reason: Worsening of condition Followup: pm1 - With: Private Physician - When: 2 - 3 days - Reason: Recheck today's complaints, Continuance of care, Re-evaluation by your physician Discharge Instructions: - Discharge Summary Sheet pm1 - Rash, Adult pm1 - Scabies, Adult pm1 Forms: - Medication Reconciliation Form pm1 - Thank You Letter pm1 - Antibiotic Education pm1 - Prescription Opioid Use pm1 Prescriptions: - Elimite 5 % Topical Cream - apply 1 application by TOPICAL route one time Wash after 12 hours.; 60 gram; pm1 Refills: 0, Product Selection Permitted - Doxycycline Hyclate 100 mg Oral Tablet - take 1 tablet by ORAL route every 12 hours; 20 tablet; Refills: 0, Product pm1 Selection Permitted Addendum: 06/15/2021 19:12 Co-signature as Attending Physician, Roderick Zaidi MD. m a2 Signatures: Priya Puckett, TRUDY RN ss Abraham Martinez, CAN MAKER CAN MAKER pm1 Roderick Zaidi MD MD mi2
--- NOTE | 2021-06-13 16:42 | ER ---
Nurse's Notes [facility] Name: Zack Persaud Age: 30 yrs Sex: Female : 1990 Arrival Date: 06/13/2021 Time: 16:11 Bed Waiting Private MD: Diagnosis: Rash and other nonspecific skin eruption Presentation: 06/13 16:32 Chief complaint: Patient states: "I have scabies.". Coronavirus screen: Client denies ss travel out of the [place] in the last 14 days. Ebola Screen: Patient denies exposure to infectious person. Patient denies travel to an Ebola-affected area in the 21 days before illness onset. Initial Sepsis Screen: Does the patient meet any 2 criteria? No. Patient's initial sepsis screen is negative. Does the patient have a suspected source of infection? No. Patient's initial sepsis screen is negative. Risk Assessment: Do you want to hurt yourself or someone else? Patient reports no desire to harm self or others. Onset of symptoms was June 12, 2021. 16:32 Method Of Arrival: Ambulatory ss 16:32 Acuity: SHERRI 5 ss Historical: - Allergies: 16:32 Adderall; ss 16:32 Codeine; ss 16:32 Fentanyl; ss 16:32 Geodon; ss - Home Meds: 16:32 None [Active]; ss - PMHx: 16:32 None; ss - Immunization history:: Client reports having NOT received the Covid vaccine. - Social history:: Smoking status: Patient reports the use of cigarette tobacco products, denies chronic smoking, but will smoke occasionally. Screenin:34 Abuse screen: Denies threats or abuse. Denies injuries from another. Nutritional ss screening: No deficits noted. Tuberculosis screening: Never had TB. Fall Risk None identified. Assessment: 16:34 General: Appears in no apparent distress. comfortable, Behavior is calm, cooperative, ss Denies fever, feeling ill, fatigue, chills. Neuro: Level of Consciousness is awake, alert, obeys commands, Oriented to person, place, time, situation. Cardiovascular: Capillary refill < 3 seconds is brisk in bilateral fingers. Respiratory: Airway is patent Respiratory effort is even, unlabored, Respiratory pattern is regular, symmetrical. EENT: Oral mucosa is moist. Derm: Skin is intact, is healthy with good turgor, Skin is dry, Skin is pink, warm \\T\\ dry. normal, Rash noted that is itchy. Musculoskeletal: Circulation, motion, and sensation intact. Range of motion: limited in all extremities, Swelling absent. Vital Signs: 16:32 Resp 17; Weight 76.66 kg; Height 5 ft. 2 in. (157.48 cm); Pain 0/10; ss 16:34 Pulse 78; Temp 97.9; Pulse Ox 100% ; ss 16:36 BP 137 / 100; ss 16:32 Body Mass Index 30.91 (76.66 kg, 157.48 cm) ED Course: 16:11 Patient arrived in ED. mr 16:32 Triage completed. 16:32 Arm band placed on right wrist. 16:34 Patient has correct armband on for positive identification. Bed in low position. Call ss light in reach. 16:34 No provider procedures requiring assistance completed. Patient did not have IV access ss during this emergency room visit. 16:40 Abraham Martinez NP is PHCP. pm1 16:40 Roderick Zaidi MD is Attending Physician. pm1 Administered Medications: No medications were administered Outcome: 16:41 Discharge ordered by . pm1 16:45 Discharged to home ambulatory. 16:45 Condition: good 16:45 Discharge instructions given to patient, Instructed on discharge instructions, follow up and referral plans. medication usage, Demonstrated understanding of instructions, follow-up care, medications, Prescriptions given X 2. 16:45 Patient left the ED. Signatures: Amber Amaya Priya Puckett RN RN Abraham Martinez NP DISEASE MANAGEMENT NURSE pm1 Corrections: (The following items were deleted from the chart) 16:35 16:34 Pulse 92bpm; Pulse Ox 100%; Temp 97.9F; ss ss
[2021-06-13 16:57] VITALS: TEMP 97.9; O2SAT 100
[2021-06-13 16:58] VITALS: BP 137/100
== END 2021-06-13 16:45 | disposition home or self-care (01) ==
LOC: ER 16:05
DX: R21 Rash and other nonspecific skin eruption (principal); F17.210 Nicotine dependence, cigarettes, uncomplicated; Z88.5 Allergy status to narcotic agent; Z88.8 Allergy status to other drugs, medicaments and biological substances
CPT/HCPCS: 99282

== ENCOUNTER 2021-09-13 16:50 | Emergency (ER) | payer OTHER ==
--- OUTSIDE RECORDS SUMMARY | 2021-09-13 16:53 | XMS REPORT | Continuity of Care Document ---
:1990 Author Organization [facility] t Address [facility] [place] [address] Care Team Providers Name Role Phone Asked, Pcp Primary Care Physician Unavailable Clinic Attending Clinician Unavailable AKOSUA Attending Clinician Unavailable Akosua TEACHER LEARNING DISABLED Attending Clinician Singer LUA Attending Clinician Paulette CHNUG Attending Clinician Unavailable Lab, Fam Pob I Attending Clinician Unavailable ANENE Attending Clinician Unavailable UNKNOWN Attending Clinician Unavailable Clinic Admitting Clinician Unavailable Payers Payer Name Policy Type Policy Number Effective Date Expiration Date [facility] [id number] 2020 DUAL COMPLETE HMO 00:00:00 MED[place]ID [place] [id number] 2019 00:00:00 MEDICARE PART A \T\ [id number] 2011 B 00:00:00 Problems Condition Condition Condition Status Onset Resolution Last Treating Co mments Source Name Details Category Date Date Treatment Clinician Date Abdominal Abdominal Disease Active 2018- [facility] pain [facility] 00[facility] l Ectopic Ectopic Disease Active 2018- [facility] 00 l Vaginal Vaginal Disease Active 2018- [facility] bleeding bleeding [facility] affecting affecting 00:00: Hosp millie early early 00 l 5 weeks 5 weeks Disease Active 2019- [facility] gestation gestation 8-[facility] of of 00:00: Hospita 00 l Pelvic Pelvic Disease Active 2018- [facility] pain pain 8-[facility] affecting affecting [...] ents Source Name Type Date Date Clinician LATEX DRUG Active Hives 2018- [facility] INGREDI 814 ity of 00:00: [address] MORPHINE DRUG Active Swelling Univer s INGREDI 14 ity of 00:00: [place] [address] [facility] ZIPRASID DRUG Active Swelling Univer s ONE HCL INGREDI 14 ity of 00:00: [address] Branch Ziprasid Propensi Active Swelling Meth mara one Hcl ty to 814 st adverse 00:00: Hospita reaction 00 l s to drug Latex Propensi Active Hives [facility] ty to 8-[facility] adverse 00:00: Hospita reaction 00 l s to drug Morphine Propensi Active Swelling Meth mara ty to 8-14 st adverse 00:00: Hospita reaction 00 l s to drug NO KNOWN Drug Active Univers ALLERGIE Class ity of S [facility] Social History Social Habit Start Date Stop Date Quantity Comments Source History of tobacco Cigarette Smoker [facility] use Hospital Cigarettes smoked 2020-05-27 2020-05-[address] current (pack per 00:00:00 00:00:00 Hospita l day) - Reported Tobacco use and 2020-05-27 2020-05-27 Never used [facility] exposure 00:00:00 00:00:00 Hospital Alcohol intake 2020-05-27 2020-05-27 Current drinker Metho dist 00:00:00 00:00:00 of alcohol Hospital (finding) Alcohol Comment 2019-05-29 2019-05-29 occasional [facility]ism 00:00:00 00:00:00 Hospital Sex Ass[birth year] At [birth year] [facility] 00:00:00 00:00:00 Hospital Smoking Status Start Date Stop Date Source Current every day smoker 2020-05-27 00:00:00 Met [facility] Medications Ordered Filled Start Stop Current Ordering Indication Dosage Frequency Signature Comments Components Source Medication Medication Date Date Medication? Clinician (SIG) Name Name No known No [facility] medications [facility] Hospita l Procedures This patient has no known procedures. Plan of Care Planned Activity Planned Date Details Comments Source Future Scheduled Test COVID-19 VACCINE (1) [facility] [code = COVID-19 VACCINE (1)] Future Scheduled Test Hepatitis C screening [facility] (procedure) [code = 570044894] Future Scheduled Test Screening for [facility] malignant neoplasm of cervix (procedure) [code = 063996448] Future Scheduled Test INFLUENZA VACCINE [facility] [code = INFLUENZA VACCINE] Encounters Start End Encounter Admission Attending Care Care Encounter Source Date/Time Date/Time Type Type Clinicians Facility Department ID 2021-09-[address] [facility] [id number] [place] 17:50:05 [address] 2021-08-[address] [facility] [id number] [place] 17:16:12 521 [facility] 2021-08-14 Emergency [facility] [id number] Univers 07:02:03 ity [facility] 2021-08-14 Emergency [facility] [id number] Univers 07:01:44 ity of [facility] 2021-08-14 Emergency [facility] [id number] Univers 06:49:26 ity of [facility] 2021-08-13 Emergency [facility] [id number] Univers 19:07:48 ity [facility] 2021-08-13 Emergency [facility] [id number] Univers 16:44:18 ity [facility] 2020-09-04 2020-09-04 Emergency X [facility] ERT [id number] Univers 21:51:00 22:55:00 CYNISE ity [facility] 2020-09-04 2020-09-04 Emergency X [facility] ERT [id number] Univers 19:15:00 20:48:00 [facility] 2020-09-04 2020-09-04 Emergency [facility] [id number] 19:15:00 20:48:00 Tristen Rush [id number] [place] [id number] [place] [address] [id number] 2020-09-04 2020-09-04 Emergency [place]ro[place], [facility] [id number] 08:40:00 11:20:00 Keaton Rush [id number] [place] [id number] [place] [id number] 2020-08-25 2020-08-25 Outpatient R [facility] [id number] Univers 15:00:00 15:00:00 [facility] 2020-08-25 2020-08-25 Outpatient R JULIET, [facility] [id number] Univers 14:30:00 14:30:00 WONDIFUL ity o f [facility] 2020-08-18 2020-08-18 Laboratory Lab, [facility] [id number] 08:30:53 08:55:02 Only Fam Pob I Health [id number] [place] [id number] [facility] [id number] nal [address] 2020-08-18 2020-08-18 Outpatient R [facility] [id number] Univers 08:40:00 08:40:00 [facility] 2020-08-18 2020-08-18 Outpatient R DWAYNE, [facility] [id number] Univers 08:40:00 08:40:00 HIMANSHU [facility] 2020-07-28 2020-07-28 [facility] [id number] Univers 14:30:00 14:30:00 WONDIFUL [id number] ity o f [facility] 2020-07-28 2020-07-28 Outpatient R JULIET, [facility] [id number] Univers 14:30:00 14:30:00 WONDIFUL ity o f [facility] 2020-02-27 2020-02-27 Outpatient R [facility] [id number] Univers 17:00:00 17:00:00 [id number] [facility] 2020-02-27 2020-02-27 Outpatient R UNKNOWN, [facility] [id number] Univers 17:00:00 17:00:00 ATTENDING [facility] 2019 2019 Outpatient R UNKNOWN, [facility] [id number] Univers 19:30:00 19:30:00 ATTENDING ity of [facility] Results This patient has no known results.
[2021-09-13 18:52] LABS: Absolute Lymphocytes (CBC) 2.7 K/uL (0.7-4.9); Basophils % 0.8 % (0-1.3); Hematocrit 36.7 % (36.0-45.0); Lymphocytes % 42.5 % (15.3-44.8); MPV 7.4 fL (7.6-11.3); RBC Red Blood Cell Count 4.18 M/uL (3.86-4.86)
--- NOTE | 2021-09-13 19:02 | RAD REPORT ---
EXAM DESCRIPTION: RAD - Chest Single View - 09/13/2021 6:56 pm CLINICAL HISTORY: CHEST PAIN Chest pain. COMPARISON: Chest Single View dated 09/04/2020 FINDINGS: Portable technique limits examination quality. The lungs are grossly clear. The heart is normal in size. No displaced fractures. IMPRESSION: No acute intrathoracic process suspected.
[2021-09-13 20:18] LABS: Protime INR 0.91
[2021-09-13 20:22] LABS: Urine Blood Negative (Negative); Urine Glucose Negative (Negative); Urine Protein Negative (Negative); Urine Specific Gravity >=1.030 (1.005-1.030); Urine pH 5.5 (5.0-7.0)
[2021-09-13 20:57] LABS: ALT/SGPT 34 U/L (12-78); AST/SGOT 30 U/L (15-37); Albumin 3.4 g/dL (3.4-5.0); Alkaline Phosphatase 45 U/L (45-117); BUN Blood Urea Nitrogen 16 mg/dL (7-18); Bicarbonate 24 mmol/L (21-32); Bilirubin Direct < 0.1 mg/dL (0-0.2); Bilirubin Total 0.2 mg/dL (0.2-1.0); Glucose Level 101 mg/dL (74-106); Lipase 153 U/L (73-393); Magnesium 1.9 mg/dL (1.8-2.4); NT PRO-BNP 55 pg/mL (<125); Potassium 3.8 mmol/L (3.5-5.1); Protein, Total 7.5 g/dL (6.4-8.2); Sodium Level 139 mmol/L (136-145)
--- NOTE | 2021-09-13 21:23 | ER ---
Nurse's Notes [facility] Name: Zack Persaud Age: 30 yrs Sex: Female : 1990 Arrival Date: 09/13/2021 Time: 16:55 Bed 12 Private MD: Diagnosis: Abdominal pain, Generalized;Chest pain, unspecified Presentation: 09/13 17:29 Chief complaint: Patient states: Pain with deep breathing x 2 days ago. Abd pain x ss months, but is getting worse. Coronavirus screen: Client denies travel out of the [place] in the last 14 days. Ebola Screen: Patient denies exposure to infectious person. Patient denies travel to an Ebola-affected area in the 21 days before illness onset. Initial Sepsis Screen: Does the patient meet any 2 criteria? No. Patient's initial sepsis screen is negative. Does the patient have a suspected source of infection? No. Patient's initial sepsis screen is negative. Risk Assessment: Do you want to hurt yourself or someone else? Patient reports no desire to harm self or others. Onset of symptoms is unknown. 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 - Social history:: Smoking status: Reported history of juuling and/or vaping. Screenin:11 Abuse screen: Denies threats or abuse. Denies injuries from another. Nutritional iw screening: No deficits noted. Tuberculosis screening: No symptoms or risk factors identified. Fall Risk IV access (20 points). Assessment: 19:10 General: Appears in no apparent distress. Behavior is calm, cooperative. Pain: iw Complains of pain in chest Pain does not radiate. Pain radiates to epigastric area and left upper quadrant. Neuro: Level of Consciousness is awake, alert, obeys commands, Oriented to person, place, time, situation, Moves all extremities. Full function. Cardiovascular: Patient's skin is warm and dry. Respiratory: Respiratory effort is even, unlabored, Respiratory pattern is regular, symmetrical. GI: Abdomen is non-distended, Bowel sounds present X 4 quads. Abd is soft and non tender X 4 quads. Abd is soft Reports upper abdominal pain. Derm: Skin is intact, is healthy with good turgor. Musculoskeletal: Range of motion: intact in all extremities. 19:20 Reassessment: Patient appears in no apparent distress at this time. EKG done; lab cc4 notified of needed redraw of labs; # 22 g diffusics saline lock [id number] right inner FA with no s/sx's of infiltration. 19:30 Reassessment: Patient appears in no apparent distress at this time. Up \T\ ambulatory to cc4 BR with urine specimen collected; CM, BP \T\ O2 sat applied; NSR with no ectopy; hypertensive; retake BP 160/98; reports having vaginal discharge. 21:36 Reassessment: Patient appears in no apparent distress at this time. BP 156/90; Rx for cc4 HCTZ given with discharge instructions with v/u; lists of REAL ESTATE INSTRUCTOR \T\ internal medicine given to followup with. Vital Signs: 17:29 BP 160 / 109; Pulse 78; Resp 16; Temp 97.4(TE); Pulse Ox 100% on R/A; Weight 77.11 kg; ss Height 5 ft. 2 in. (157.48 cm); Pain 8/10; 19:30 BP 147 / 107; Pulse 65; Resp 20 S; Pulse Ox 100% on R/A; cc4 19:30 BP 160 / 98; Pulse 68; Resp 16 S; Pulse Ox 100% on R/A; cc4 21:36 BP 156 / 90; Pulse 69; Resp 20 S; Temp 98.2(O); Pulse Ox 100% on R/A; cc4 17:29 Body Mass Index 31.09 (77.11 kg, 157.48 cm) ED Course: 16:55 Patient arrived in ED. ds1 17:32 Triage completed. ss 17:32 Arm band placed on right wrist. ss 18:22 Wilfredo Key PA is PHCP. jr8 18:22 Jose Alfredo Samayoa MD is Attending Physician. jr8 18:29 Jeanette Mata, RN is Primary Nurse. iw 18:50 Inserted saline lock: 22 gauge in right forearm, using aseptic technique. iw 18:56 XRAY Chest (1 view) In Process Unspecified. EDMS 19:24 CBC with Diff Sent. cc4 19:24 Troponin (emerg Dept Use Only) Sent. cc4 19:24 NT PRO-BNP Sent. cc4 19:24 Magnesium Sent. cc4 19:24 LFT's Sent. cc4 19:24 Basic Metabolic Panel Sent. cc4 19:25 Basic Metabolic Panel Sent. cc4 19:25 Lipase Sent. cc4 19:26 religious education coordinator on. Pulse ox on. NIBP on. cc4 19:26 Patient has correct armband on for positive identification. Placed in gown. Bed in low cc4 position. Call light in reach. Side rails up X 1. 20:26 Urine --Ancillary Sent. cc4 20:26 Urine --Ancillary (enter results) Sent. cc4 21:22 Alexander Joy MD is Referral Physician. jr8 21:36 No provider procedures requiring assistance completed. cc4 21:36 No provider procedures requiring assistance completed. cc4 21:36 IV discontinued, intact, bleeding controlled, No redness/swelling at site. Pressure cc4 dressing applied. Administered Medications: No medications were administered Outcome: 21:22 Discharge ordered by . jr8 21:36 Discharged to home ambulatory. cc4 21:36 Condition: stable 21:36 Discharge instructions given to patient, Instructed on discharge instructions, follow up and referral plans. medication usage, Demonstrated understanding of instructions, follow-up care, medications, Prescriptions given X 1. 21:51 Patient left the ED. cc4 Signatures: Dispatcher [employer] EDCT Aminata Rivera ds1 Jeanette Mata, RN TRUDY Priya Puckett RN RN ss Roszak, Josh, PA PA jr8 Ladonna Barragan, TRUDY RN cc4 Corrections: (The following items were deleted from the chart) 19:24 19:24 PROTIME (+INR)+COAG.LAB.BRZ drawn and sent. cc4 EDMS 22:15 19:30 Reassessment: Patient appears in no apparent distress at this time. Up \T\ cc4 ambulatory to with urine specimen collected; CM, BP \T\ O2 sat applied; NSR with no ectopy; hypertensive; retake BP 160/98. cc4
--- NOTE | 2021-09-13 21:23 | EDPHYS ---
Physician Documentation [facility] Name: Zack Persaud Age: 30 yrs Sex: Female : 1990 Arrival Date: 09/13/2021 Time: 16:55 Bed 12 Private MD: ED Physician Jose Alfredo Samayoa HPI: 09/13 19:43 This 30 yrs old Black Female presents to ER via Ambulatory with complaints of Abdominal jr8 Pain, Chest Pain. 19:43 This is a 30-year-old female who presented to the emergency room with complaints of jr8 abdominal pain and chest pain. Patient stated that she has had chest pain that started today and is sharp in nature. Patient stated that she has had abdominal pain for several months and has never been able to figure out why. Patient stated that she is also noticed that her blood pressure has been elevated which she has been to the clinic in the past and has had blood pressure readings that were elevated but has not been started on any blood pressure medicine.. 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 - Social history:: Smoking status: Reported history of juuling and/or vaping. ROS: 19:43 Eyes: Negative for injury, pain, redness, and discharge, ENT: Negative for injury, jr8 pain, and discharge, Neck: Negative for injury, pain, and swelling, Respiratory: Negative for shortness of breath, cough, wheezing, and pleuritic chest pain, Back: Negative for injury and pain, MS/Extremity: Negative for injury and deformity, Skin: Negative for injury, rash, and discoloration, Neuro: Negative for headache, weakness, numbness, tingling, and seizure. 19:43 Cardiovascular: Positive for chest pain, Negative for edema, orthopnea, palpitations, paroxysmal nocturnal dyspnea. 19:43 Abdomen/GI: Positive for abdominal pain, Negative for nausea, vomiting, and diarrhea. Exam: 19:43 Constitutional: This is a well developed, well nourished patient who is awake, alert, jr8 and in no acute distress. Eyes: Pupils equal round and reactive to light, extra-ocular motions intact. Lids and lashes normal. Conjunctiva and sclera are non-icteric and not injected. Cornea within normal limits. Periorbital areas with no swelling, redness, or edema. ENT: Nares patent. No nasal discharge, no septal abnormalities noted. Tympanic membranes are normal and external auditory canals are clear. Oropharynx with no redness, swelling, or masses, exudates, or evidence of obstruction, uvula midline. Mucous membranes moist. Neck: Trachea midline, no thyromegaly or masses palpated, and no cervical lymphadenopathy. Supple, full range of motion without nuchal rigidity, or vertebral point tenderness. No Meningismus. Chest/axilla: Normal chest wall appearance and motion. Nontender with no deformity. No lesions are appreciated. Cardiovascular: Regular rate and rhythm with a normal S1 and S2. No gallops, murmurs, or rubs. Normal PMI, no JVD. No pulse deficits. Respiratory: Lungs have equal breath sounds bilaterally, clear to auscultation and percussion. No rales, rhonchi or wheezes noted. No increased work of breathing, no retractions or nasal flaring. Back: No spinal tenderness. No costovertebral tenderness. Full range of motion. Skin: Warm, dry with normal turgor. Normal color with no rashes, no lesions, and no evidence of cellulitis. MS/ Extremity: Pulses equal, no cyanosis. Neurovascular intact. Full, normal range of motion. Neuro: Awake and alert, GCS 15, oriented to person, place, time, and situation. Cranial nerves II-XII grossly intact. Motor strength 5/5 in all extremities. Sensory grossly intact. Cerebellar exam normal. Normal gait. 19:43 Abdomen/GI: Inspection: abdomen appears normal, Bowel sounds: active, all quadrants, Palpation: soft, in all quadrants, mild abdominal tenderness, in the abdomen diffusely, mass, is not appreciated, rebound tenderness, is not appreciated, voluntary guarding, is not appreciated, involuntary guarding, is not appreciated, no appreciated organomegaly, Indicators: McBurney's point is not tender, Obrien's sign is negative, Rovsing's sign is negative, Liver: tenderness, is not appreciated. Vital Signs: 17:29 BP 160 / 109; Pulse 78; Resp 16; Temp 97.4(TE); Pulse Ox 100% on R/A; Weight 77.11 kg; ss Height 5 ft. 2 in. (157.48 cm); Pain 8/10; 19:30 BP 147 / 107; Pulse 65; Resp 20 S; Pulse Ox 100% on R/A; cc4 19:30 BP 160 / 98; Pulse 68; Resp 16 S; Pulse Ox 100% on R/A; cc4 21:36 BP 156 / 90; Pulse 69; Resp 20 S; Temp 98.2(O); Pulse Ox 100% on R/A; cc4 17:29 Body Mass Index 31.09 (77.11 kg, 157.48 cm) ss MDM: 18:22 Patient medically screened. [facility] 21:21 Data reviewed: vital signs, nurses notes, lab test result(s), EKG, radiologic studies, [facility] plain films. Data interpreted: Pulse oximetry: on room air is 100 %. Interpretation: normal. Counseling: I had a detailed discussion with the patient and/or guardian regarding: the historical points, exam findings, and any diagnostic results supporting the discharge/admit diagnosis, lab results, radiology results, the need for outpatient follow up, a clinical mental health counselor, a manager dental, to return to the emergency department if symptoms worsen or persist or if there are any questions or concerns that arise at home. 09/13 18:28 Order name: Basic Metabolic Panel [facility] 09/13 18:28 Order name: CBC with Diff [facility] 09/13 18:28 Order name: LFT's; Complete Time: 21:40 [facility] 09/13 18:28 Order name: Magnesium; Complete Time: 21:40 [facility] 09/13 18:28 Order name: NT PRO-BNP; Complete Time: 21:40 [facility] 09/13 18:28 Order name: PT-INR; Complete Time: 20:28 [facility] 09/13 18:28 Order name: Troponin (emerg Dept Use Only); Complete Time: 21:40 [facility] 09/13 18:28 Order name: XRAY Chest (1 view); Complete Time: 19:30 [facility] 09/13 18:28 Order name: Lipase; Complete Time: 21:40 [facility] 09/13 18:28 Order name: Basic Metabolic Panel; Complete Time: 21:40 [facility] 09/13 18:28 Order name: CBC with Automated Diff; Complete Time: 19:30 [facility] 09/13 20:22 Order name: Urine Dipstick-Ancillary; Complete Time: 20:28 [facility] 09/13 20:23 Order name: Urine --Ancillary (enter results) 2 09/13 20:24 Order name: Urine --Ancillary; Complete Time: 21:44 [facility] 09/13 18:28 Order name: EKG; Complete Time: 18:28 [facility] 09/13 18:28 Order name: Cardiac monitoring; Complete Time: 19:24 [facility] 09/13 18:28 Order name: EKG - Nurse/Tech; Complete Time: 19:23 [facility] 09/13 18:28 Order name: IV Saline Lock; Complete Time: 19:10 [facility] 09/13 18:28 Order name: Labs collected and sent; Complete Time: 19:10 [facility] 09/13 18:28 Order name: O2 Per Protocol; Complete Time: 19:10 [facility] 09/13 18:28 Order name: O2 Sat Monitoring; Complete Time: 19:24 [facility] 09/13 18:58 Order name: Labs - recollect needed: recollect green,lavender and blue top; Complete bd Time: 19:48 Administered Medications: No medications were administered Disposition: 09/14 08:47 Co-signature as Attending Physician, Jose Alfredo Samayoa MD I agree with the assessment and adal plan of care. Disposition Summary: 09/13/21 21:22 Discharge Ordered Location: Home [facility] Problem: new jr8 Symptoms: have improved jr8 Condition: Stable jr8 Diagnosis - Abdominal pain, Generalized jr8 - Chest pain, unspecified jr8 Followup: jr8 - With: Alexander Joy MD - When: 5 - 6 days - Reason: Recheck today's complaints, Continuance of care, Re-evaluation by your physician Discharge Instructions: - Discharge Summary Sheet jr8 - Abdominal Pain, Adult jr8 - Nonspecific Chest Pain, Adult jr8 Forms: - Medication Reconciliation Form jr8 - Thank You Letter jr8 - Antibiotic Education jr8 - Prescription Opioid Use jr8 Prescriptions: - Hydrochlorothiazide 25 mg Oral Tablet - take 1 tablet by ORAL route once daily .; 30 tablet; Refills: 0, Product jr8 Selection Permitted Signatures: Dispatcher [employer] EDMS Rosie Castellon Corey, MD MD cha Smirch, Shelby, RN RN Wilfredo Cazares PA PA jr8 Corrections: (The following items were deleted from the chart) 09/13 19:24 18:28 PROTIME (+INR)+[id number].BRZ ordered. EDMS EDMS
[2021-09-13 21:36] LABS: Troponin (Emerg Dept Use Only) 0.02 ng/mL (0.0-0.045)
[2021-09-13 21:41] LABS: Urine Specific Gravity/Preg >1.030 (1.005-1.030)
[2021-09-13 22:01] VITALS: TEMP 97.4; O2SAT 100
[2021-09-13 22:08] VITALS: BP 160/98
--- NOTE | 2021-09-14 07:06 | EKG ---
Test Date: 2021-09-13 Test Time: 19:19:47 [place] Senior Specialist: ELOISA MEASUREMENT RESULTS: Intervals: Rate: 71 PA: 176 QRSD: 80 QT: 378 QTc: 410 [place]: P: 47 PA: 176 QRS: 74 T: 10 INTERPRETIVE STATEMENTS: Normal sinus rhythm with sinus arrhythmia Nonspecific T wave abnormality Abnormal ECG Compared to ECG 09/04/2020 22:24:43 Sinus tachycardia no longer present Possible ischemia no longer present T-wave abnormality still present Electronically Signed On 09-14-21 07:04:34 MACHINE SET UP by Conrad Moreno
--- NOTE | 2021-09-14 07:06 | EKG ---
Test Date: 2021-09-13 Test Time: 19:20:52 [employer] Punch Operator: ELOISA MEASUREMENT RESULTS: Intervals: Rate: 63 RI: 172 QRSD: 82 QT: 362 QTc: 370 [place]: P: 61 RI: 172 QRS: 73 T: 10 INTERPRETIVE STATEMENTS: Normal sinus rhythm Nonspecific T wave abnormality Abnormal ECG Compared to ECG 09/13/2021 19:19:47 Sinus arrhythmia no longer present T-wave abnormality still present Electronically Signed On 09-14-21 07:04:33 CONCRETING SUPERVISOR by Conrad Moreno
== END 2021-09-13 21:51 | disposition home or self-care (01) ==
LOC: ER 16:50
DX: R10.84 Generalized abdominal pain (principal); R07.9 Chest pain, unspecified; Z88.6 Allergy status to analgesic agent; Z88.8 Allergy status to other drugs, medicaments and biological substances; F17.290 Nicotine dependence, other tobacco product, uncomplicated
CPT/HCPCS: 36415; 71045; 80048; 80076; 81003; 81025; 83690; 83735; 83880; 84484; 85025; 85610; 93005; 99284

== ENCOUNTER 2022-12-03 15:14 | Emergency (ER) | payer OTHER ==
--- OUTSIDE RECORDS SUMMARY | 2022-12-03 15:21 | XMS REPORT | Continuity of Care Document ---
:1990 Author Organization [facility] t Address [address] [place] [address] Care Team Providers Name Role Phone Asked, No Pcp Primary Care Physician Unavailable MALLORY ATKINS Attending Clinician Unavailable Mallory Atkins DO Attending Clinician Karan YATES, Thelma Attending Clinician Unavailable Clinic Attending Clinician Unavailable TRISTEN RAMOS Attending Clinician Unavailable Tristen Puckett Attending Clinician Keaton Schroeder DO Attending Clinician ATTILA CHUNG Attending Clinician Unavailable Lab, Adc Fam Pob I Attending Clinician Unavailable IHMANSHU RICE Attending Clinician Unavailable UNKNOWN, ATTENDING Attending Clinician Unavailable Clinic Admitting Clinician Unavailable Payers Payer Name Policy Type Policy Number Effective Date Expiration Date [facility] [id number] 2020 DUAL COMPLETE HMO 00:00:00 MEDICAID [facility] [id number] 2019 00:00:00 MEDICARE PART A \T\ [id number] 2011 B 00:00:00 Problems Condition Condition Condition Status Onset Resolution Last Treating Co mments Source Name Details Category Date Date Treatment Clinician Date Recurrent Recurrent Disease Active Uni vers vaginitis vaginitis 5-14 ity of 00:00: [place] 00 Medical Branch Abdominal Abdominal Disease Active Met hodi pain pain [address] [facility] 00:00: Hospita 00 l Ectopic Ectopic [...] ents Source Name Type Date Date Clinician Geodon - Propensi Active Oral ty to 1-05 adverse 00:00: reaction 00 to drug Latuda - Propensi Active Oral ty to 9-19 adverse 00:00: reaction 00 to drug Ziprasid Propensi Active Swelling 2018- Meth mara one Hcl ty to 8-14 st adverse 00:00: Hospita reaction 00 l s to drug Latex Propensi Active Hives 2018-0 Methodi ty to 8-14 st adverse 00:00: Hospita reaction 00 l s to drug Morphine Propensi Active Swelling 2018-0 Meth mara ty to 8-14 st adverse 00:00: Hospita reaction 00 l s to drug LATEX DRUG Active Hives 2018-0 Univers INGREDI 8-14 ity of 00:00: [place] 00 Medical Branch MORPHINE DRUG Active Swelling 2019-0 Univer s INGREDI 8-14 ity of 00:00: [place] 00 Medical Branch ZIPRASID DRUG Active Swelling 2019-0 Univer s ONE HCL INGREDI 8-14 ity of 00:00: [place] 00 Medical Branch Latex Propensi Active Hives 2019-0 Univers ty to 8-14 ity of adverse 00:00: [place] reaction 00 Medical s Branch Morphine Propensi Active Swelling 2018-0 Univ ers ty to 8-14 ity of adverse 00:00: [place] reaction 00 Medical s Branch Ziprasid Propensi Active Swelling 2018-0 Univ ers one Hcl ty to 8-14 ity of adverse 00:00: [place] reaction 00 Medical s [place] NO KNOWN Drug Active Univers ALLERGIE Class ity of S [facility] Social History Social Habit Start Date Stop Date Quantity Comments Source History of tobacco Light tobacco Uni versity of use smoker [facility] Exposure to 2022-07-13 2022-07-23 Not sure University SARS-CoV-2 (event) 00:00:00 15:04:00 [facility] Alcohol intake 2020-05-27 2020-05-27 Current drinker [facility] 00:00:00 00:00:00 of [facility] (finding) Alcohol Comment 2019-05-29 2019-05-29 occasional [facility] 00:00:00 00:00:00 [facility] Cigarettes smoked 2019-05-29 2019-05-29 [facility] current (pack per 00:00:00 00:00:00 Hospita l day) - Reported Tobacco use and 2019-05-29 2019-05-29 Smokeless tobacco [facility] exposure 00:00:00 00:00:00 non-user Hospital Sex Assigned At [birth year] [facility] 00:[facility] Hospital Smoking Status Start Date Stop Date Source Light tobacco smoker 2019 00:00:00 Univers ity of [facility] Smokes tobacco daily 2019-05-29 00:00:00 [facility] Medications Ordered Filled Start Stop Current Ordering Indication Dosage Frequency Signature Comments Components Source Medication Medication Date Date Medication? Clinician (SIG) Name Name TAKE 2021-10 No TABLET 0-31 EVERY 8 00:00: HOURS 00 NEEDED TAKE 2021-10 No TABLET 0-31 EVERY 8 00:00: HOURS 00 NEEDED erythromyci 2021-10 Yes [id number] .[id number][in_u Place 0.5 Univers n 5 mg/gram 0-08 [id number] s] Inches in i ty of (0.5 %) 00:00: both eyes [place] ophthalmic 00 at Medical ointment bedtime. Branch Continue until you follow up with eye doctor. erythromyci 2021-10- No [id number] .[id number][in_u Place 0.5 Univers n 5 mg/gram 0-08 10-08 [id number] s] Inches in ity of (0.5 %) 00:00: 00:[place] :00 at bedtime Med ical ointment for 7 Branch days. Continue until you follow up with eye doctor. TAKE 1 2021-0 No TABLET BY 9-08 MOUTH THREE 00:00: TIMES DAILY 00 NEEDED TAKE 1 2021-0 No TABLET BY 9-08 MOUTH THREE 00:00: TIMES DAILY 00 NEEDED TAKE 1 2021-0 No TABLET BY 9-08 MOUTH THREE 00:00: TIMES DAILY 00 NEEDED TAKE 1 2021-0 No TABLET BY 9-08 MOUTH THREE 00:00: TIMES DAILY 00 NEEDED TAKE 1 2021-0 No TABLET BY 9-08 MOUTH THREE 00:00: TIMES DAILY 00 NEEDED Dose 2022-0 No Unknown 4-13 00:00: 00 Dose 2022-0 No Unknown 4-13 00:00: 00 Dose 2022-0 No Unknown 4-13 00:00: 00 Dose 2022-0 No Unknown 4-13 00:00: 00 Dose 2022-0 No Unknown 4-13 00:00: 00 Dose 2022-0 No Unknown 4-13 00:00: 00 Dose 2022-0 No Unknown 4-13 00:00: 00 Dose 2022-0 No Unknown 4-13 00:00: 00 Dose 2022-0 No Unknown 4-13 00:00: 00 Dose 2022-0 No Unknown 4-13 00:00: 00 Dose 2022-0 No Unknown 4-13 00:00: 00 Dose 2022-0 No Unknown 4-13 00:00: 00 Dose 2022-0 No Unknown 4-13 00:00: 00 Dose 2022-0 No Unknown 4-13 00:00: 00 Dose 2022-0 No Unknown 4-13 00:00: 00 Dose 2022-0 No Unknown 4-13 00:00: 00 Dose 2022-0 No Unknown 4-13 00:00: 00 Dose 2022-0 No Unknown 4-13 00:00: 00 Dose 2022-0 No Unknown 4-13 00:00: 00 Dose 2022-0 No Unknown 4-13 00:00: 00 Dose 2022-0 No Unknown 4-13 00:00: 00 Dose 2022-0 No Unknown 4-13 00:00: 00 Dose 2022-0 No Unknown 4-13 00:00: 00 Dose 2022-0 No Unknown 4-13 00:00: 00 Dose 2022-0 No Unknown 4-13 00:00: 00 Dose 2022-0 No Unknown 4-13 00:00: 00 Dose 2022-0 No Unknown 4-13 00:00: 00 Dose 2022-0 No Unknown 4-13 00:00: 00 Dose 2022-0 No Unknown 4-13 00:00: 00 Dose 2022-0 No Unknown 4-13 00:00: 00 Dose 2022-0 No Unknown 4-13 00:00: 00 Dose 2022-0 No Unknown 4-13 00:00: 00 Dose 2022-0 No Unknown 4-13 00:00: 00 Dose 2022-0 No Unknown 4-13 00:00: 00 Dose 2022-0 No Unknown 4-13 00:00: 00 Dose 2022-0 No Unknown 4-13 00:00: 00 Dose 2022-0 No Unknown 4-13 00:00: 00 Dose 2022-0 No Unknown 4-13 00:00: 00 Dose 2022-0 No Unknown 4-13 00:00: 00 Dose 2022-0 No Unknown 4-13 00:00: 00 Dose 2022-0 No Unknown 3-24 00:00: 00 Dose 2022-0 No Unknown 3-24 00:00: 00 Dose 2022-0 No Unknown 3-24 00:00: 00 Dose 2022-0 No Unknown 3-24 00:00: 00 Dose 2022-0 No Unknown 3-24 00:00: 00 Dose 2022-0 No Unknown 3-24 00:00: 00 Dose 2022-0 No Unknown 3-24 00:00: 00 Dose 2022-0 No Unknown 3-24 00:00: 00 Dose 2022-0 No Unknown 3-24 00:00: 00 Dose 2022-0 No Unknown 3-24 00:00: 00 Dose 2022-0 No Unknown 3-24 00:00: 00 Dose 2022-0 No Unknown 3-24 00:00: 00 Dose 2022-0 No Unknown 3-24 00:00: 00 Dose 2022-0 No Unknown 3-24 00:00: 00 Dose 2022-0 No Unknown 3-24 00:00: 00 Dose 2022-0 No Unknown 3-24 00:00: 00 Dose 2022-0 No Unknown 3-24 00:00: 00 Dose 2022-0 No Unknown 3-24 00:00: 00 Dose 2022-0 No Unknown 3-24 00:00: 00 Dose 2022-0 No Unknown 3-24 00:00: 00 Dose 2022-0 No Unknown 3-24 00:00: 00 Dose 2022-0 No Unknown 3-24 00:00: 00 Dose 2022-0 No Unknown 3-24 00:00: 00 Dose 2022-0 No Unknown 3-24 00:00: 00 Dose 2022-0 No Unknown 3-24 00:00: 00 Dose 2022-0 No Unknown 3-24 00:00: 00 Dose 2022-0 No Unknown 3-24 00:00: 00 Dose 2022-0 No Unknown 3-24 00:00: 00 Dose 2022-0 No Unknown 3-24 00:00: 00 Dose 2022-0 No Unknown 3-24 00:00: 00 Dose 2022-0 No Unknown 3-24 00:00: 00 Dose 2022-0 No Unknown 3-24 00:00: 00 Dose 2022-0 No Unknown 3-24 00:00: 00 Dose 2022-0 No Unknown 3-24 00:00: 00 Dose 2022-0 No Unknown 3-24 00:00: 00 Dose 2022-0 No Unknown 3-24 00:00: 00 Dose 2022-0 No Unknown 3-24 00:00: 00 Dose 2022-0 No Unknown 3-24 00:00: 00 Dose 2022-0 No Unknown 3-24 00:00: 00 Dose 2022-0 No Unknown 3-24 00:00: 00 Dose 2022-0 No Unknown 3-24 00:00: 00 Dose 2022-0 No Unknown 3-24 00:00: 00 Dose 2022-0 No Unknown 3-24 00:00: 00 Dose 2022-0 No Unknown 3-24 00:00: 00 Dose 2022-0 No Unknown 3-24 00:00: 00 Dose 2022-0 No Unknown 3-24 00:00: 00 Dose 2022-0 No Unknown 3-24 00:00: 00 Dose 2022-0 No Unknown 3-24 00:00: 00 Dose 2022-0 No Unknown 3-24 00:00: 00 Dose 2022-0 No Unknown 3-24 00:00: 00 Dose 2022-0 No Unknown 3-24 00:00: 00 Dose 2022-0 No Unknown 3-24 00:00: 00 Dose 2022-0 No Unknown 3-24 00:00: 00 Dose 2022-0 No Unknown 3-24 00:00: 00 Dose 2022-0 No Unknown 3-24 00:00: 00 Dose 2022-0 No Unknown 3-24 00:00: 00 Dose 2022-0 No Unknown 3-24 00:00: 00 Dose 2022-0 No Unknown 3-24 00:00: 00 Dose 2022-0 No Unknown 3-24 00:00: 00 Dose 2022-0 No Unknown 3-24 00:00: 00 Dose 2021-1 No Unknown 2-20 00:00: 00 Dose 1-1 No Unknown 2-20 00:00: 00 Dose 1-1 No Unknown 2-20 00:00: 00 Dose 1-1 No Unknown 2-20 00:00: 00 Dose 1-1 No Unknown 2-20 00:00: 00 Dose 1-1 No Unknown 2-20 00:00: 00 Dose 1-1 No Unknown 2-20 00:00: 00 Dose 1-1 No Unknown 2-20 00:00: 00 Dose 1-1 No Unknown 2-20 00:00: 00 Dose 1-1 No Unknown 2-20 00:00: 00 Dose 1-1 No Unknown 2-20 00:00: 00 Dose 1-1 No Unknown 2-20 00:00: 00 Dose 1-1 No Unknown 2-20 00:00: 00 Dose 1-1 No Unknown 2-20 00:00: 00 Dose 1-1 No Unknown 2-20 00:00: 00 Dose 1-1 No Unknown 0-12 00:00: 00 Dose 1-1 No Unknown 0-12 00:00: 00 Dose 1-1 No Unknown 0-12 00:00: 00 Dose 1-1 No Unknown 0-12 00:00: 00 Dose 1-1 No Unknown 0-12 00:00: 00 Dose 1-1 No Unknown 0-12 00:00: 00 Dose 1-1 No Unknown 0-12 00:00: 00 Dose 1-1 No Unknown 0-12 00:00: 00 Dose 1-1 No Unknown 0-12 00:00: 00 Dose 2021-1 No Unknown 0-12 00:00: 00 Dose 2021-0 No Unknown 9-15 00:00: 00 Dose 1-0 No Unknown 9-15 00:00: 00 Dose 2021-0 No Unknown 9-15 00:00: 00 Dose 2021-0 No Unknown 9-15 00:00: 00 Dose 2021-0 No Unknown 9-15 00:00: 00 Dose 2021-0 No Unknown 5-17 00:00: 00 Dose 2021-0 No Unknown 5-17 00:00: 00 Dose 2021-0 No Unknown 5-17 00:00: 00 Dose 2021-0 No Unknown 5-17 00:00: 00 Dose 2021-0 No Unknown 5-17 00:00: 00 metronidazo 1-0 No 1mg le 500 mg 5-11 tablet 00:00: 00 metronidazo 2021-0 No 1mg le 500 mg 5-11 tablet 00:00: 00 Dose 2021-0 No Unknown 5-11 00:00: 00 metronidazo 2021-0 No 1mg le 500 mg 5-11 tablet 00:00: 00 metronidazo 2021-0 No 1mg le 500 mg 5-11 tablet 00:00: 00 Dose 2021-0 No Unknown 5-11 00:00: 00 metronidazo 2021-0 No 1mg le 500 mg 5-11 tablet 00:00: 00 metronidazo 2021-0 No 1mg le 500 mg 5-11 tablet 00:00: 00 Dose 2021-0 No Unknown 5-11 00:00: 00 metronidazo 2021-0 No 1mg le 500 mg 5-11 tablet 00:00: 00 metronidazo 2021-0 No 1mg le 500 mg 5-11 tablet 00:00: 00 Dose 2021-0 No Unknown 5-11 00:00: 00 metronidazo 2021-0 No 1mg le 500 mg 5-11 tablet 00:00: 00 metronidazo 2021-0 No 1mg le 500 mg 5-11 tablet 00:00: 00 Dose 2021-0 No Unknown 5-11 00:00: 00 cetirizine 2021-0 No 1mg 10 mg 4-14 tablet 00:00: 00 fluticasone 1-0 No 12mcg/a propionate 4-14 ctuatio 50 00:00: n mcg/actuati 00 on nasal spray,suspe nsion Bromfed DM 2020-0 No 10mg/5 2 mg-30 4-14 mL mg-10 mg/5 00:00: mL oral 00 syrup cetirizine 1-0 No 1mg 10 mg 4-14 tablet 00:00: 00 fluticasone 1-0 No 12mcg/a propionate 4-14 ctuatio 50 00:00: n mcg/actuati 00 on nasal spray,suspe nsion Bromfed DM 2020-0 No 10mg/5 2 mg-30 4-14 mL mg-10 mg/5 00:00: mL oral 00 syrup cetirizine 1-0 No 1mg 10 mg 4-14 tablet 00:00: 00 fluticasone 1-0 No 12mcg/a propionate 4-14 ctuatio 50 00:00: n mcg/actuati 00 on nasal spray,suspe nsion Bromfed DM 2020-0 No 10mg/5 2 mg-30 4-14 mL mg-10 mg/5 00:00: mL oral 00 syrup cetirizine 2020-0 No 1mg 10 mg 4-14 tablet 00:00: 00 cetirizine 1-0 No 1mg 10 mg 4-14 tablet 00:00: 00 fluticasone 1-0 No 12mcg/a propionate 4-14 ctuatio 50 00:00: n mcg/actuati 00 on nasal spray,suspe nsion Bromfed DM 2020-0 No 10mg/5 2 mg-30 4-14 mL mg-10 mg/5 00:00: mL oral 00 syrup fluticasone 1-0 No 12mcg/a propionate 4-14 ctuatio 50 00:00: n mcg/actuati 00 on nasal spray,suspe nsion Bromfed DM 2020-0 No 10mg/5 2 mg-30 4-14 mL mg-10 mg/5 00:00: mL oral 00 syrup epinephrine 2020-0 No 1(1.5 0.3 mg/0.3 3-25 mL) mL 00:00: injection, 00 auto-inject or epinephrine 2020-0 No 1(1.5 0.3 mg/0.3 3-25 mL) mL 00:00: injection, 00 auto-inject or epinephrine 2020-0 No 1(1.5 0.3 mg/0.3 3-25 mL) mL 00:00: injection, 00 auto-inject or epinephrine 2020-0 No 1(1.5 0.3 mg/0.3 3-25 mL) mL 00:00: injection, 00 auto-inject or epinephrine 2020-0 No 1(1.5 0.3 mg/0.3 3-25 mL) mL 00:00: injection, 00 auto-inject or clindamycin 2020-0 No 1mg HCl 300 mg 3-10 capsule 00:00: 00 clindamycin 2020-0 No 1mg HCl 300 mg 3-10 capsule 00:00: 00 clindamycin 2020-0 No 1mg HCl 300 mg 3-10 capsule 00:00: 00 clindamycin 2020-0 No 1mg HCl 300 mg 3-10 capsule 00:00: 00 clindamycin 2020-0 No 1mg HCl 300 mg 3-10 capsule 00:00: 00 diphenhydrA 2020-1 Yes [id number] 25mg Take 1 Univers MINE 1-20 105 capsule by ity of (BENADRYL) 00:00: mouth [place] 25 mg 00 every 6 Medical capsule (six) Branch hours as needed for Allergies or Sleep. diphenhydrA 2020-1 Yes [id number] 25mg Take 1 Univers MINE 1-20 105 capsule by ity of (BENADRYL) 00:00: mouth [place] 25 mg 00 every 6 Medical capsule (six) Branch hours as needed for Allergies or Sleep. ibuprofen 2020-0 Yes [id number] 600mg Take 1 Univers 600 mg 9-23 tablet by ity of tablet 00:00: mouth [place] 00 every 6 Medical (six) Branch hours as needed for Pain (scale 4-6). ibuprofen 2020-0 Yes [id number] 600mg Take 1 Univers 600 mg 9-23 tablet by ity of tablet 00:00: mouth [place] 00 every 6 Medical (six) Branch hours as needed for Pain (scale 4-6). hydrOXYzine 2020-0 Yes 25mg Take 25 mg Univers 25 mg 3-02 by mouth 3 ity of capsule 20:29: (three) [place] 53 times Medical daily as Branch needed for Itching. hydrOXYzine 2020-0 Yes 25mg Take 25 mg Univers 25 mg 3-02 by mouth 3 ity of capsule 20:29: (three) [place] 53 times Medical daily as Branch needed for Itching. No known 2019- No No known [facility] medications 8-[address] 20[facility] No known 2019- No No known Metho di medications 8-[address] 20:19: s [facility] No known 2019- No No known Metho di medications 8-[address] 20:19: [facility] No known 2019-0 No No known Meth[facility] di medications 8-[address] 20:19: s [facility] No known 2019-0 No No known Meth[facility] di medications 8-[address] 20:19: s [facility] No known 2019- No No known Meth[facility] di medications 8-[address] 20:19: s [facility] No known No [facility] medications [facility] Immunizations Ordered Immunization Filled Immunization Date Status Commen ts Source Name Name Tdap 2021-07-29 Completed 00:00:00 Tdap 2021-07-29 Completed 00:00:00 Tdap 2021-07-29 Completed 00:00:00 Tdap 2021-07-29 Completed 00:00:00 Tdap 2021-07-29 Completed 00:00:00 Moderna COVID-19 2021-07-27 Completed Vaccine 00:00:00 Moderna COVID-19 2021-07-27 Completed Vaccine 00:00:00 Moderna COVID-19 2021-07-27 Completed Vaccine 00:00:00 Moderna COVID-19 2021-07-27 Completed Vaccine 00:00:00 Moderna COVID-19 2021-07-27 Completed Vaccine 00:00:00 Moderna COVID-19 2021-06-16 Completed Vaccine 00:00:00 Moderna COVID-19 2021-06-16 Completed Vaccine 00:00:00 Moderna COVID-19 2021-06-16 Completed Vaccine 00:00:00 Moderna COVID-19 2021-06-16 Completed Vaccine 00:00:00 Moderna COVID-19 2021-06-16 Completed Vaccine 00:00:00 Vital Signs Vital Name Observation Time Observation Value Comments Source Systolic blood 2022-07-23 20:05:00 150 mm[Hg] Univer sity of pressure [facility] Diastolic blood 2022-07-23 20:05:00 103 mm[Hg] Unive rsity of pressure [facility] Heart rate 2022-07-23 20:05:00 82 /min Universi ty of [facility] Body temperature 2022-07-23 20:05:00 37.61 [place] Univ ersity of [facility] Respiratory rate 2022-07-23 20:05:00 18 /[facility] [place] [facility] height 2022-07-23 20:05:00 160 cm Universi ty of [facility] Body weight 2022-07-23 20:05:[address] [facility] BMI 2022-07-23 20:05:00 31.89 kg/m2 [facility] Oxygen saturation in 2022-07-23 20:05:00 100 /min [facility] Arterial blood by [facility] Pulse oximetry Branch BP Systolic 2022-10-06 13:36:00 140 mm[Hg] BP Diastolic 2022-10-06 13:36:00 92 mm[Hg] Weight Measured 2022-10-06 13:36:00 183.00 pounds Height Measured 2022-10-06 13:36:00 63.00 inches Body Temperature 2022-10-06 13:36:00 98.20 degrees Heart Rate 2022-10-06 13:36:00 72.00 /min Respiratory Rate 2022-10-06 13:36:00 16.00 /min BP Systolic 2022-08-02 08:20:00 BP Diastolic 2022-08-02 08:20:00 Weight Measured 2022-08-02 08:20:00 180.00 pounds Height Measured 2022-08-02 08:20:00 63.00 inches Body Temperature 2022-08-02 08:20:00 Heart Rate 2022-08-02 08:20:00 Respiratory Rate 2022-08-02 08:20:00 Height Measured 2022-07-27 13:26:00 62.40 inches Body Temperature 2022-07-27 13:26:00 98.80 degrees Heart Rate 2022-07-27 13:26:00 67.00 /min Respiratory Rate 2022-07-27 13:26:00 BP Systolic 2022-07-27 13:26:00 158 mm[Hg] BP Diastolic 2022-07-27 13:26:00 95 mm[Hg] Weight Measured 2022-07-27 13:26:00 182.00 pounds BP Systolic 2022-07-04 19:52:00 BP Diastolic 2022-07-04 19:52:00 Weight Measured 2022-07-04 19:52:00 180.00 pounds Height Measured 2022-07-04 19:52:00 62.40 inches Body Temperature 2022-07-04 19:52:00 Heart Rate 2022-07-04 19:52:00 Respiratory Rate 2022-07-04 19:52:00 BP Systolic 2021-10-04 08:54:00 141 mm[Hg] BP Diastolic 2021-10-04 08:54:00 93 mm[Hg] Weight Measured 2021-10-04 08:54:00 182.80 pounds Height Measured 2021-10-04 08:54:00 62.40 inches Body Temperature 2021-10-04 08:54:00 98.40 degrees Heart Rate 2021-10-04 08:54:00 72.00 /min Respiratory Rate 2021-10-04 08:54:00 BP Systolic 2021-10-04 08:36:00 141 mm[Hg] BP Diastolic 2021-10-04 08:36:00 93 mm[Hg] Weight Measured 2021-10-04 08:36:00 182.80 pounds Height Measured 2021-10-04 08:36:00 62.40 inches Body Temperature 2021-10-04 08:36:00 98.40 degrees Heart Rate 2021-10-04 08:36:00 72.00 /min Respiratory Rate 2021-10-04 08:36:00 BP Systolic 2021-07-29 13:44:00 125 mm[Hg] BP Diastolic 2021-07-29 13:44:00 79 mm[Hg] Weight Measured 2021-07-29 13:44:00 181.60 pounds Height Measured 2021-07-29 13:44:00 62.40 inches Body Temperature 2021-07-29 13:44:00 98.20 degrees Heart Rate 2021-07-29 13:44:00 73.00 /min Respiratory Rate 2021-07-29 13:44:00 BP Systolic 2021-07-27 14:25:00 149 mm[Hg] BP Diastolic 2021-07-27 14:25:00 99 mm[Hg] Weight Measured 2021-07-27 14:25:00 181.00 pounds Height Measured 2021-07-27 14:25:00 62.40 inches Body Temperature 2021-07-27 14:25:00 98.00 degrees Heart Rate 2021-07-27 14:25:00 91.00 /min Respiratory Rate 2021-07-27 14:25:00 17.00 /min BP Systolic 2021-05-14 11:08:00 122 mm[Hg] BP Diastolic 2021-05-14 11:08:00 79 mm[Hg] Weight Measured 2021-05-14 11:08:00 177.00 pounds Height Measured 2021-05-14 11:08:00 62.40 inches Body Temperature 2021-05-14 11:08:00 98.20 degrees Heart Rate 2021-05-14 11:08:00 75.00 /min Respiratory Rate 2021-05-14 11:08:00 BP Systolic 2021-05-03 09:07:00 132 mm[Hg] BP Diastolic 2021-05-03 09:07:00 94 mm[Hg] Weight Measured 2021-05-03 09:07:00 177.20 pounds Height Measured 2021-05-03 09:07:00 62.40 inches Body Temperature 2021-05-03 09:07:00 98.40 degrees Heart Rate 2021-05-03 09:07:00 76.00 /min Respiratory Rate 2021-05-03 09:07:00 26.00 /min BP Systolic 2021-03-09 18:04:00 138 mm[Hg] BP Diastolic 2021-03-09 18:04:00 88 mm[Hg] Weight Measured 2021-03-09 18:04:00 172.60 pounds Height Measured 2021-03-09 18:04:00 62.40 inches Body Temperature 2021-03-09 18:04:00 98.60 degrees Heart Rate 2021-03-09 18:04:00 73.00 /min Respiratory Rate 2021-03-09 18:04:00 BP Systolic 2021-03-01 16:51:00 142 mm[Hg] BP Diastolic 2021-03-01 16:51:00 92 mm[Hg] Weight Measured 2021-03-01 16:51:00 172.60 pounds Height Measured 2021-03-01 16:51:00 62.40 inches Body Temperature 2021-03-01 16:51:00 98.10 degrees Heart Rate 2021-03-01 16:51:00 73.00 /min Respiratory Rate 2021-03-01 16:51:00 17.00 /min BP Systolic 2021-02-23 17:11:00 135 mm[Hg] BP Diastolic 2021-02-23 17:11:00 91 mm[Hg] Weight Measured 2021-02-23 17:11:00 171.80 pounds Height Measured 2021-02-23 17:11:00 62.40 inches Body Temperature 2021-02-23 17:11:00 98.00 degrees Heart Rate 2021-02-23 17:11:00 88.00 /min Respiratory Rate 2021-02-23 17:11:00 16.00 /min Procedures Procedure Date / Time Performing Clinician Source Performed NOTICE OF PRIVACY 2022-07-23 20:02:47 Doctor Unassigned, No Univ ersity [facility] PRACTICES Name Medical Branch CONSENT/REFUSAL FOR 2022-07-23 19:57:49 [facility] Name Medical Branch Ekg W/ At Least 12 2021-10-04 00:00:00 Leads W/ [place] r [id number] Us Pelvic 2021-05-14 00:00:00 Nonobstetric Complete [id number] Us Abdominal 2021-05-14 00:00:00 Complete Plan of Care Planned Activity Planned Date Details Comments Source Future Scheduled 2022-10-09 [facility] (#1) [code = COVID-19 VACCINE (#1)] Future Scheduled 2022-10-09 Screening for [facility] Test 13:43:20 malignant neoplasm of cervix (procedure) [code = 289899158] Future Scheduled 2022-10-09 INFLUENZA VACCINE [facility] Test 13:43:20 [code = INFLUENZA VACCINE] Future Scheduled 2022-10-09 [facility] 13:43:20 (#1) [code = COVID-19 VACCINE (#1)] Future Scheduled 2022-10-09 Screening for [facility] Test 13:43:20 malignant neoplasm of cervix (procedure) [code = 653805463] Future Scheduled 2022-10-09 INFLUENZA VACCINE [facility] Test 13:43:20 [code = INFLUENZA VACCINE] Future Scheduled 2022-10-09 [facility] 13:43:20 (#1) [code = COVID-19 VACCINE (#1)] Future Scheduled 2022-10-09 Screening for [facility] Test 13:43:20 malignant neoplasm of cervix (procedure) [code = 704211830] Future Scheduled 2022-10-09 INFLUENZA VACCINE [facility] Test 13:43:20 [code = INFLUENZA VACCINE] Future Scheduled 2022-10-02 [facility] 01:26:14 (#1) [code = COVID-19 VACCINE (#1)] Future Scheduled 2022-10-02 INFLUENZA VACCINE [facility] Test 01:26:14 [code = INFLUENZA VACCINE] Future Scheduled 2022-06-26 [facility] 03:02:31 VACCINES (1 of 3 - 3-dose series) [code = HEPATITIS B VACCINES (1 of 3 - 3-dose series)] Future Scheduled 2022-06-26 [facility] 03:02:31 (#1) [code = COVID-19 VACCINE (#1)] Future Scheduled 2022-06-26 Screening for [facility] Test 03:02:31 malignant neoplasm of cervix (procedure) [code = 287230523] Future Scheduled 2022-06-26 INFLUENZA VACCINE [facility] Test 03:02:31 [code = INFLUENZA VACCINE] Future Scheduled 2022-06-26 [facility] 03:02:31 VACCINES (1 of 3 - 3-dose series) [code = HEPATITIS B VACCINES (1 of 3 - 3-dose series)] Future Scheduled 2022-06-26 COVID-[address] [facility] 03:02:31 (#1) [code = COVID-19 VACCINE (#1)] Future Scheduled 2022-06-26 [facility] 03:02:31 malignant neoplasm of cervix (procedure) [code = [id number]] Future Scheduled 2022-06-26 [facility]:02:31 [code = INFLUENZA VACCINE] Future Scheduled 2022-06-26 [facility] 03:02:31 VACCINES (1 of 3 - 3-dose series) [code = HEPATITIS B VACCINES (1 of 3 - 3-dose series)] Future Scheduled 2022-06-26 COVID-[address] [facility] 03:02:31 (#1) [code = COVID-19 VACCINE (#1)] Future Scheduled 2022-06-26 [facility] 03:02:31 malignant neoplasm of cervix (procedure) [code = [id number]] Future Scheduled 2022-06-26 [facility] 03:02:31 [code = INFLUENZA VACCINE] Future Scheduled COVID-[address] [facility] (1) [code = COVID-19 VACCINE (1)] Future Scheduled [facility] screening (procedure) [code = 442853059] Future Scheduled [facility] Test malignant neoplasm of cervix (procedure) [code = 238102656] Future Scheduled [facility] [code = INFLUENZA VACCINE] Goal Plan of Care Note [code = 81161-5] Goal Plan of Care Note [code = 05960-7] Goal Plan of Care Note [code = 60123-9] Goal Plan of Care Note [code = 61017-2] Goal Plan of Care Note [code = 13332-7] Goal Plan of Care Note [code = 99073-7] Goal Plan of Care Note [code = 31575-8] Goal Plan of Care Note [code = 30944-2] Goal Plan of Care Note [code = 27370-7] Goal Plan of Care Note [code = 73735-9] Goal Plan of Care Note [code = 14419-7] Goal Plan of Care Note [code = 87469-7] Goal Plan of Care Note [code = 63180-7] Goal Plan of Care Note [code = 80763-4] Goal Plan of Care Note [code = 29003-5] Goal Plan of Care Note [code = 53977-7] Goal Plan of Care Note [code = 29798-1] Goal Plan of Care Note [code = 24350-4] Goal Plan of Care Note [code = 22551-3] Goal Plan of Care Note [code = 04365-4] Goal Plan of Care Note [code = 92555-1] Goal Plan of Care Note [code = 20024-6] Goal Plan of Care Note [code = 54215-2] Goal Plan of Care Note [code = 26373-0] Goal Plan of Care Note [code = 68320-2] Goal Plan of Care Note [code = 07598-2] Goal Plan of Care Note [code = 94195-0] Goal Plan of Care Note [code = 44683-3] Goal Plan of Care Note [code = 40951-9] Goal Plan of Care Note [code = 13508-8] Goal Plan of Care Note [code = 51431-7] Goal Plan of Care Note [code = 66950-5] Goal Plan of Care Note [code = 86685-4] Goal Plan of Care Note [code = 26760-5] Goal Plan of Care Note [code = 55749-9] Goal Plan of Care Note [code = 87246-9] Goal Plan of Care Note [code = 35042-1] Goal Plan of Care Note [code = 15349-0] Goal Plan of Care Note [code = 73738-8] Goal Plan of Care Note [code = 37640-2] Goal Plan of Care Note [code = 02792-4] Goal Plan of Care Note [code = 30815-7] Goal Plan of Care Note [code = 81670-8] Goal Plan of Care Note [code = 62693-3] Goal Plan of Care Note [code = 78251-0] Goal Plan of Care Note [code = 31563-9] Goal Plan of Care Note [code = 10991-7] Goal Plan of Care Note [code = 12739-6] Goal Plan of Care Note [code = 16440-2] Goal Plan of Care Note [code = 23935-9] Goal Plan of Care Note [code = 06777-7] Goal Plan of Care Note [code = 80824-8] Goal Plan of Care Note [code = 85673-0] Goal Plan of Care Note [code = 87462-1] Goal Plan of Care Note [code = 66552-7] Goal Plan of Care Note [code = 63876-1] Goal Plan of Care Note [code = 39769-3] Goal Plan of Care Note [code = 51715-4] Goal Plan of Care Note [code = 65389-8] Goal Plan of Care Note [code = 06219-9] Goal Plan of Care Note [code = 04899-8] Goal Plan of Care Note [code = 06156-3] Goal Plan of Care Note [code = 55865-8] Goal Plan of Care Note [code = 34502-5] Goal Plan of Care Note [code = 02036-5] Goal Plan of Care Note [code = 11353-6] Goal Plan of Care Note [code = 98204-7] Goal Plan of Care Note [code = 37727-9] Goal Plan of Care Note [code = 94214-2] Goal Plan of Care Note [code = 33960-2] Goal Plan of Care Note [code = 94867-3] Goal Plan of Care Note [code = 79730-3] Goal Plan of Care Note [code = 85328-5] Goal Plan of Care Note [code = 33093-8] Goal Plan of Care Note [code = 96283-6] Goal Plan of Care Note [code = 29637-4] Goal Plan of Care Note [code = 69826-6] Goal Plan of Care Note [code = 32883-7] Goal Plan of Care Note [code = 83431-3] Goal Plan of Care Note [code = 66444-8] Goal Plan of Care Note [code = 24839-3] Goal Plan of Care Note [code = 42266-9] Goal Plan of Care Note [code = 58806-7] Goal Plan of Care Note [code = 06749-8] Goal Plan of Care Note [code = 69613-9] Goal Plan of Care Note [code = 92132-8] Goal Plan of Care Note [code = 16227-6] Goal Plan of Care Note [code = 55364-3] Goal Plan of Care Note [code = 42251-0] Goal Plan of Care Note [code = 48696-1] Goal Plan of Care Note [code = 08757-9] Goal Plan of Care Note [code = 05697-6] Goal Plan of Care Note [code = 01603-6] Goal Plan of Care Note [code = 37374-9] Goal Plan of Care Note [code = 95250-1] Goal Plan of Care Note [code = 21288-7] Goal Plan of Care Note [code = 82672-7] Goal Plan of Care Note [code = 69623-5] Goal Plan of Care Note [code = 40124-5] Goal Plan of Care Note [code = 39843-2] Goal Plan of Care Note [code = 55035-7] Goal Plan of Care Note [code = 44298-6] Goal Plan of Care Note [code = 38761-0] Goal Plan of Care Note [code = 62858-7] Goal Plan of Care Note [code = 57033-6] Goal Plan of Care Note [code = 10814-5] Goal Plan of Care Note [code = 67728-9] Goal Plan of Care Note [code = 42467-2] Goal Plan of Care Note [code = 14259-4] Goal Plan of Care Note [code = 74460-4] Goal Plan of Care Note [code = 44553-3] Goal Plan of Care Note [code = 03002-4] Goal Plan of Care Note [code = 37061-9] Goal Plan of Care Note [code = 17344-8] Goal Plan of Care Note [code = 69590-9] Goal Plan of Care Note [code = 24167-4] Goal Plan of Care Note [code = 14784-7] Goal Plan of Care Note [code = 36633-7] Goal Plan of Care Note [code = 46061-3] Goal Plan of Care Note [code = 40479-6] Goal Plan of Care Note [code = 41580-8] Goal Plan of Care Note [code = 38940-4] Goal Plan of Care Note [code = 51336-4] Goal Plan of Care Note [code = 15558-3] Goal Plan of Care Note [code = 92171-0] Goal Plan of Care Note [code = 32541-3] Goal Plan of Care Note [code = 79055-5] Goal Plan of Care Note [code = 24079-8] Goal Plan of Care Note [code = 41148-1] Goal Plan of Care Note [code = 87324-6] Goal Plan of Care Note [code = 94480-6] Goal Plan of Care Note [code = 25177-9] Goal Plan of Care Note [code = 94552-7] Goal Plan of Care Note [code = 45670-8] Goal Plan of Care Note [code = 44112-7] Goal Plan of Care Note [code = 17678-6] Goal Plan of Care Note [code = 66537-6] Goal Plan of Care Note [code = 68342-3] Goal Plan of Care Note [code = 76065-8] Goal Plan of Care Note [code = 88505-8] Goal Plan of Care Note [code = 86191-3] Goal Plan of Care Note [code = 10201-0] Goal Plan of Care Note [code = 71443-8] Goal Plan of Care Note [code = 19314-7] Goal Plan of Care Note [code = 31420-5] Goal Plan of Care Note [code = 73464-0] Goal Plan of Care Note [code = 61897-9] Goal Plan of Care Note [code = 25549-0] Goal Plan of Care Note [code = 13346-3] Goal Plan of Care Note [code = 91719-2] Goal Plan of Care Note [code = 19001-4] Goal Plan of Care Note [code = 32889-8] Goal Plan of Care Note [code = 10728-1] Goal Plan of Care Note [code = 17931-2] Goal Plan of Care Note [code = 62628-0] Goal Plan of Care Note [code = 06525-6] Goal Plan of Care Note [code = 26415-7] Goal Plan of Care Note [code = 06442-7] Goal Plan of Care Note [code = 91326-3] Goal Plan of Care Note [code = 15041-2] Goal Plan of Care Note [code = 38317-2] Goal Plan of Care Note [code = 67979-8] Goal Plan of Care Note [code = 63620-5] Goal Plan of Care Note [code = 27966-3] Goal Plan of Care Note [code = 56697-7] Encounters Start End Encounter Admission Attending Care Care Encounter Source Date/Time Date/Time Type Type Clinicians Facility Department ID 2021-08-14 Emergency [facility] [id number] Univers 07:02:03 ity of [facility] 2021-08-14 Emergency [facility] [id number] Univers 07:01:44 ity of [facility] 2021-08-14 Emergency [facility] [id number] Univers 06:49:26 ity of [facility] 2021-08-13 Emergency [facility] [id number] Univers 19:07:48 ity of [facility] 2021-08-13 Emergency [facility] [id number] Univers 16:44:[address] [facility] 2022-10-26 2022-10-26 Outpatient SFA SFA [id number] 023 Isra 10:53:54 10:53:54 0111 Magdi Ferraro 2022-10-20 2022-10-20 Outpatient SFA SFA 08671-3 023 Isra 18:20:52 18:20:52 0105 F Ronan 2022-10-20 2022-10-20 Outpatient [id number]- [id number] [id number] 2r70d0-3 00:00:00 00:00:00 Visit 3s76-3i30 j61-2b22-5 -8dfe-cb4 dfe-cb41b9 2j04d825d 8d866z 2022-10-06 2022-10-06 Outpatient SFA SFA 59803-3 022 Isra 13:07:12 13:07:12 1222 F Ronan 2022-10-06 2022-10-06 Outpatient [id number]- [id number] [id number] 00:00:00 00:00:00 Visit 5k63-5rt7 q65-5hh6-i -adbf-403 dbf-69830l 36la4eoyw d3bcfe 2022-08-09 2022-08-09 Outpatient SFA SFA 80186-4 022 Isra 08:26:28 08:26:28 1025 F Ronan 2022-07-30 2022-07-30 Outpatient [id number]- [id number] q73b8g-6 00:00:00 00:00:00 Visit 922b-4d1f 22b-4d1f-8 -6e70-b8u k67-d2uy34 q8250at86 87ff87 2022-07-27 2022-07-27 Outpatient [facility] SFA 74428-7 022 Isra 13:18:03 13:18:03 1012 F Ronan 2022-07-27 2022-07-27 Outpatient [id number]- [id number] rb7v88-u 00:00:00 00:00:00 Visit t163-8wgi 512-4edc-b -f658-699 [id number] 252624w59 947a01 2022-07-23 2022-07-23 Emergency X WILBERT [facility] ERT [id number] Univers 15:12:00 16:06:[address] [facility] 2022-07-23 2022-07-23 Emergency Wilbert [facility] [id number] Univers 15:12:00 16:06:00 Mallory OLEA 350.1.13.10 [facility] 4.2.7.2.686 [facility] [id number] [place] [id number] [place] 2022-07-23 2022-07-23 Nurse CHICO Russo [id number] Univers 00:00:00 00:00:00 Triage Thelma CORDON [address].1.13.[address] [facility] 4.2.7.2.686 [facility] [id number] [facility] 019 [place] 2022-07-04 2022-07-04 Outpatient [id number] 00:00:00 00:00:00 Visit 7796-4ded 796-4ded-8 -8202-57f 202-57f9d6 6q8b9b028 s9o764 2021-06-29 2021-06-29 Outpatient Clinic [facility] 4296- [id number] [place] 02:44:00 02:44:00 914 n [facility] 2021-03-05 2021-03-05 Outpatient Clinic [facility] [id number] [place] 09:41:00 09:41:00 521 n [facility] 2020-09-04 2020-09-04 Emergency X AKOSUA [facility] ERT [id number] Univers 21:51:00 22:55:[address] [facility] 2020-09-04 2020-09-04 Emergency X AKOSUA, [facility] ERT [id number] Univers 19:15:00 20:48:[address] [facility] 2020-09-04 2020-09-04 Emergency Akosua, [facility] [id number] 19:15:00 20:48:00 Tristen Olea 350.1.13.10 [place] 4.2.7.2.686 [place] [id number] 2020-09-04 2020-09-04 Emergency Schroeder, [facility] [id number] 08:40:00 11:20:00 Keaton Olea 350.1.13.10 [place] 4.2.7.2.686 [place] [id number] 2020-08-25 2020-08-25 Outpatient R JULIET, [facility] [id number] Univers 14:30:00 14:30:00 WONDIFUL ity o f [facility] 2020-08-18 2020-08-18 Laboratory Lab, [facility] [id number] 08:30:53 08:55:02 Only Fam [facility] 350.1.13.10 [place] 4.2.7.2.686 Professio [id number] nal [address] 2020-08-18 2020-08-18 Outpatient R DWAYNE, [facility] [id number] Univers 08:40:00 08:40:00 [facility] 2020-07-[facility] 2020-07-28 Outpatient R JULIET [facility] [id number] Univers 14:30:00 14:30:00 WONDIFUL ity o f [facility] 2020-02-27 2020-02-27 Outpatient R UNKNOWN, [facility] [id number] Univers 17:00:00 17:00:00 ATTENDING [facility] 2019 2019 Outpatient R UNKNOWN, [facility] [id number] Univers 19:30:00 19:30:00 ATTENDING [facility] Results Test Description Test Time Test Comments Results Result Comments Source CULTURE, URINE 2022-10-28 SPECIMEN NUMBER: 13:58:08 [id number] CULTURE, URINE SPECIMEN NUMBER: [id number] SPECIMEN COMMENT: URINE SOURCE: URINE REPORT STATUS: FINAL ISOLATE NUMBER 1: IDENTIFICATION: 10/28/2022 <10,000 CFU/ML BETA-STREPTOCOCCUS GROUP B ADDITIONAL OBSERVATIONS: PENICILLIN AND AMPICILLIN ARE DRUGS OF CHOICE FOR TREATMENT OF B-HEMOLYTIC STREPTOCOCCAL INFECTIONS. SUSCEPTIBILITY TESTING OF PENICILLIN AND OTHER B-LACTAMS APPROVED BY THE US FOOD AND DRUG [employer]MINISTRATION FOR TREATMENT OF B-HEMOLYTIC STREPTOCOCCAL INFECTIONS NEED NOT BE PERFORMED ROUTINELY. CT/NG, NAAT, URINE 2022-10-28 13:04:23 Test Item Value Reference Range Interpretation Comme nts GONORRHEA, NAAT (test code = NEGATIVE NEGATIVE Testing is performed with [employer] 36184) AMALIA 6800/8800 systems usingreal-time polymerase chain reaction (PCR) method. A negative result does not exclude low level infection, spec imensampling error, or collection e rror. CHLAMYDIA, NAAT (test code = NEGATIVE NEGATIVE Testing is performed with [employer] 55881) AMALIA 6800/8800 systems usingreal-time polymerase chain reaction (PCR) method. A negative result does not exclude low level infection, spec imensampling error, or collection e rror. VAGINAL PATHOGENS DNA [id number] 15:07:41 Test Item Value Reference Range Interpretation Comments RONNA SPECIES NEGATIVE NEGATIVE (test code = ) G. VAGINALIS POSITIVE NEGATIVE A (test code = ) T. VAGINALIS NEGATIVE NEGATIVE Note: The BD A ffirm VPIII (test code = Microbial Ident ification ) Testis a DNA pr obe test intended for us e in the detectionand id entification of Ronna spec ies, Gardnerellavagi nalis and Trichomonas vag inalis nucleic acid. HIV 1/2 4TH GEN, RFLX [id number] 05:30:35 Test Item Value Reference Range Interpretation Comments HIV 1/2 4TH GEN, RFLX CONF (test NON-REACTIVE NON-REACTIVE code = 3514) HEPATITIS PANEL, [id number] 05:30:35 Test Item Value Reference Range Interpretation Comments HEPATITIS A IgM (test NON-REACTIVE NON-REACTIVE code = 69329) HEPATITIS B CORE IgM NON-REACTIVE NON-REACTIVE (test code = 4644) HEPATITIS B SURF AG NON-REACTIVE NON-REACTIVE (test code = 2739) HEPATITIS C ANTIBODY NON-REACTIVE NON-REACTIVE (test code = 4675) INTERPRETATION (NOTE) Hepatitis A HEPATITIS A: (test code sero logy shows no = 2552) evidence of acu te hepatitis A. INTERPRETATION (NOTE) Hepatitis B HEPATITIS B: (test code sero logy shows no = 48292) evidence of acu te hepatitis B and no indication of exposure to hepatitis B vir us in the previous yelena eight months. INTERPRETATION (NOTE) Hepatitis C HEPATITIS C: (test code sero logy shows no = 30495) evidence of exposure to hepatitisC viru s at this time. I t can take up to 12 months after exposure tothe hepatitis C vir us for antibodies to become detectab le in the blood in certain patient s. RPR REFLEX TO T. PALLIDUM - [id number] 05:11:36 Test Item Value Reference Range Interpretation Comments RPR (test code = NON-REACTIVE NON-REACTIVE 88217) RPR TITER (test NOT INDIC. NOT INDIC. UNLESS OTHE RWISE code = 3500) TITER INDICATED, ALL TESTING PERFORMED [facility] [employer] [employer] [address] [place] [address] 4 LABORATORY DIRE CTOR: RODRIGO PISANO M.D. CLIA NUMBER [id number] [place] [id number] HEMOGLOBIN [id number] 07:47:26 Test Item Value Reference Range Interpretation Comments HEMOGLOBIN A1c (test code = 61144) 5.7 % 4.2-5.6 H CBC W/AUTO DIFF WITH [id number] 06:55:00 Test Item Value Reference Range Interpretation Comments WBC (test code = 5.8 K/UL 3.5-11.0 1001) RBC (test code = 4.39 M/UL 3.80-5.40 1002) HEMOGLOBIN (test code 12.6 G/DL 11.5-15.5 = 1003) HEMATOCRIT (test code 37.6 % 34.0-45.0 = 1004) MCV (test code = 85.6 fL 80.0-99.0 1005) MCH (test code = 28.7 PG 25.0-33.0 1006) MCHC (test code = 33.5 G/DL 31.0-36.0 1007) RDW (test code = 13.3 % 11.5-15.0 1038) NEUTROPHILS (test 39.9 % code = 1008) LYMPHOCYTES (test 51.8 % code = 1010) MONOCYTES (test code 6.6 % = 1011) EOSINOPHILS (test 1.0 % code = 1012) BASOPHILS (test code 0.5 % = 1013) IMMATURE GRANULOCYTES 0.2 % (test code = 1036) NUCLEATED RBCS (test 0.0 /100 WBC'S See_Comment [Aut omated code = 1065) message] The sy stem which generated this result transmitted reference range : 0.0. The refere nce range was not u sed to interpret th is result as normal/abnormal . PLATELET COUNT (test 301 K/UL 130-400 code = 1015) ABSOLUTE NEUTROPHILS 2.31 K/UL 1.50-7.50 (test code = 1066) ABSOLUTE LYMPHOCYTES 3.00 K/UL 1.00-4.00 (test code = 1067) ABSOLUTE MONOCYTES 0.38 K/UL 0.20-1.00 (test code = 1068) ABSOLUTE EOSINOPHILS 0.06 K/UL 0.00-0.50 (test code = 1040) ABSOLUTE BASOPHILS 0.03 K/UL 0.00-0.20 (test code = 1069) ABS IMMATURE 0.01 K/UL 0.00-0.10 GRANULOCYTES (test code = 1020) ABS NUCLEATED RBCS 0.00 K/UL 0.00-0.11 (test code = 37312) TSH, THIRD [id number] 06:25:46 Test Item Value Reference Range Interpretation Comments TSH, THIRD GENERATION (test code 1.300 UIU/ML 0.400-4.100 = 2821) ALBUMIN/CREATININE RATIO, URINE, [id number] 05:38:18 Test Item Value Reference Range Interpretation Comments CREATININE, URINE, 125.4 MG/DL NOT ESTAB CONC. (test code = 2072) ALBUMIN, URINE, 0.7 MG/DL NOT ESTAB RANDOM (test code = 63413) CALC 6 MG/G <30 Note: ALBUMIN/CREAT, RND Albumin/C reatinine ratio (test code = reference inter alexa 69184) reflects ADA an d NKF guidelines. UNL ESS OTHERWISE INDIC ATED, ALL TESTING PERFORM ED [facility], [place]. [address] [facility] [place] [address] LABORATORY DIRE CTOR: RODRIGO PISANO M.D. CLIA NUMBER [id number] [place] [id number] COMPREHENSIVE METABOLIC [id number] 04:35:41 Test Item Value Reference Range Interpretation Comments GLUCOSE (test code = 94 MG/DL 70-99 2216) BUN (test code = 9 MG/DL 6-20 2207) CREATININE (test 0.73 MG/DL 0.60-1.30 code = 2214) eGFR (2020 CKD-EPI) 113 >60 (test code = 90970) ML/MIN/1.73 CALC BUN/CREAT (test 12 RATIO 6-28 code = 2235) SODIUM (test code = 139 MEQ/L 308-682 6664) POTASSIUM (test code 3.9 MEQ/L 3.5-5.4 = 2227) CHLORIDE (test code 102 MEQ/L 95-107 = 2214) CARBON DIOXIDE (test 25 MEQ/L 19-31 code = 220) CALCIUM (test code = 9.5 MG/DL 8.5-10.5 2208) PROTEIN, TOTAL (test 7.8 G/DL 6.1-8.3 code = 222) ALBUMIN (test code = 4.6 G/DL 3.5-5.2 2200) CALC GLOBULIN (test 3.2 G/DL 1.9-3.7 code = 2240) CALC A/G RATIO (test 1.4 RATIO 1.0-2.6 code = 2234) BILIRUBIN, TOTAL 0.3 MG/DL See_Comment [Automated message] (test code = 2207) The syste m which generated this result transmit denise reference range : <=1.2. The refe rence range was not u sed to interpret th is result as normal/abnormal . ALKALINE PHOSPHATASE 53 U/L 40-114 (test code = 2204) AST (test code = 19 U/L 9-40 2217) ALT (test code = 13 U/L 5-40 2218) LIPID [id number] 04:35:41 Test Item Value Reference Range Interpretation Comments CHOLESTEROL (test 222 MG/DL <200 H code = 2210) TRIGLYCERIDES (test 272 MG/DL <150 H code = 2232) HDL CHOLESTEROL (test 49 MG/DL >39 code = 2220) CALC LDL CHOL (test 131 MG/DL <100 H NOTE: C ALCULATED LDL code = 2237) IS BASED ON RASHAUN-RUDOLPH METHOD WHICHINCLUDES ADJUSTABLE TRIGLYCERIDE:VL DL CHOLESTEROL RAT IO.THIS FACTOR VARIES B Y MEASURED TRIGLY CERIDE AND NON-HDLCHOL ESTEROL CONCENTRATIONS WITH INCREASED CALCU LATED LDL SEENIN HIGH ER TRIGLYCERIDE OR LOWER NON-HDL SPECIME NS. FOR MOREINFORMATION , SEE CLIENT ANNOUNCE MENT AT [email or web address] [email or web address] RATIO LDL/HDL 2.67 RATIO <3.22 (test code = 2238) CBC W/AUTO [id number] 00:00:00 Test Item Value Reference Range Interpretation Comments WBC (test code = 1001) 5.8 K/UL RBC (test code = 1002) 4.39 M/UL HEMOGLOBIN (test code = 1003) 12.6 G/DL HEMATOCRIT (test code = 1004) 37.6 % MCV (test code = 1005) 85.6 fL MCH (test code = 1006) 28.7 PG MCHC (test code = 1007) 33.5 G/DL RDW (test code = 1038) 13.3 % NEUTROPHILS (test code = 1008) 39.9 % LYMPHOCYTES (test code = 1010) 51.8 % MONOCYTES (test code = 1011) 6.6 % EOSINOPHILS (test code = 1012) 1.0 % BASOPHILS (test code = 1013) 0.5 % IMMATURE GRANULOCYTES (test 0.2 % code = 1036) NUCLEATED RBCS (test code = 0.0 /100WBC'S 1065) PLATELET COUNT (test code = 301 K/UL 1015) ABSOLUTE NEUTROPHILS (test code 2.31 K/UL = 1066) ABSOLUTE LYMPHOCYTES (test code 3.00 K/UL = 1067) ABSOLUTE MONOCYTES (test code = 0.38 K/UL 1068) ABSOLUTE EOSINOPHILS (test code 0.06 K/UL = 1040) ABSOLUTE BASOPHILS (test code = 0.03 K/UL 1069) ABS IMMATURE GRANULOCYTES (test 0.01 K/UL code = 1020) ABS NUCLEATED RBCS (test code = 0.00 K/UL 29045) CBC W/AUTO [id number] 00:00:00 Test Item Value Reference Range Interpretation Comments WBC (test code = 1001) 5.8 K/UL RBC (test code = 1002) 4.39 M/UL HEMOGLOBIN (test code = 1003) 12.6 G/DL HEMATOCRIT (test code = 1004) 37.6 % MCV (test code = 1005) 85.6 fL MCH (test code = 1006) 28.7 PG MCHC (test code = 1007) 33.5 G/DL RDW (test code = 1038) 13.3 % NEUTROPHILS (test code = 1008) 39.9 % LYMPHOCYTES (test code = 1010) 51.8 % MONOCYTES (test code = 1011) 6.6 % EOSINOPHILS (test code = 1012) 1.0 % BASOPHILS (test code = 1013) 0.5 % IMMATURE GRANULOCYTES (test 0.2 % code = 1036) NUCLEATED RBCS (test code = 0.0 /100WBC'S 1065) PLATELET COUNT (test code = 301 K/UL 1015) ABSOLUTE NEUTROPHILS (test code 2.31 K/UL = 1066) ABSOLUTE LYMPHOCYTES (test code 3.00 K/UL = 1067) ABSOLUTE MONOCYTES (test code = 0.38 K/UL 1068) ABSOLUTE EOSINOPHILS (test code 0.06 K/UL = 1040) ABSOLUTE BASOPHILS (test code = 0.03 K/UL 1069) ABS IMMATURE GRANULOCYTES (test 0.01 K/UL code = 1020) ABS NUCLEATED RBCS (test code = 0.00 K/UL 34962) CBC W/AUTO [id number] 00:00:00 Test Item Value Reference Range Interpretation Comments WBC (test code = 1001) 5.8 K/UL RBC (test code = 1002) 4.39 M/UL HEMOGLOBIN (test code = 1003) 12.6 G/DL HEMATOCRIT (test code = 1004) 37.6 % MCV (test code = 1005) 85.6 fL MCH (test code = 1006) 28.7 PG MCHC (test code = 1007) 33.5 G/DL RDW (test code = 1038) 13.3 % NEUTROPHILS (test code = 1008) 39.9 % LYMPHOCYTES (test code = 1010) 51.8 % MONOCYTES (test code = 1011) 6.6 % EOSINOPHILS (test code = 1012) 1.0 % BASOPHILS (test code = 1013) 0.5 % IMMATURE GRANULOCYTES (test 0.2 % code = 1036) NUCLEATED RBCS (test code = 0.0 /100WBC'S 1065) PLATELET COUNT (test code = 301 K/UL 1015) ABSOLUTE NEUTROPHILS (test code 2.31 K/UL = 1066) ABSOLUTE LYMPHOCYTES (test code 3.00 K/UL = 1067) ABSOLUTE MONOCYTES (test code = 0.38 K/UL 1068) ABSOLUTE EOSINOPHILS (test code 0.06 K/UL = 1040) ABSOLUTE BASOPHILS (test code = 0.03 K/UL 1069) ABS IMMATURE GRANULOCYTES (test 0.01 K/UL code = 1020) ABS NUCLEATED RBCS (test code = 0.00 K/UL 53698) COMPREHENSIVE METABOLIC [id number] 00:00:00 Test Item Value Reference Range Interpretation Comments GLUCOSE (test code = 2217) 94 MG/DL BUN (test code = 2208) 9 MG/DL CREATININE (test code = 2214) 0.73 MG/DL eGFR (2020 CKD-EPI) (test 113 ML/MIN/1.73 code = 22726) CALC BUN/CREAT (test code = 12 RATIO 2235) SODIUM (test code = 2231) 139 MEQ/L POTASSIUM (test code = 2228) 3.9 MEQ/L CHLORIDE (test code = 2215) 102 MEQ/L CARBON DIOXIDE (test code = 25 MEQ/L 220) CALCIUM (test code = 2209) 9.5 MG/DL PROTEIN, TOTAL (test code = 7.8 G/DL 222) ALBUMIN (test code = 2201) 4.6 G/DL CALC GLOBULIN (test code = 3.2 G/DL 2240) CALC A/G RATIO (test code = 1.4 RATIO 2234) BILIRUBIN, TOTAL (test code = 0.3 MG/DL 220) ALKALINE PHOSPHATASE (test 53 U/L code = 2204) AST (test code = 2218) 19 U/L ALT (test code = 2219) 13 U/L COMPREHENSIVE METABOLIC [id number] 00:00:00 Test Item Value Reference Range Interpretation Comments GLUCOSE (test code = 2217) 94 MG/DL BUN (test code = 2208) 9 MG/DL CREATININE (test code = 2214) 0.73 MG/DL eGFR (2020 CKD-EPI) (test 113 ML/MIN/1.73 code = 27596) CALC BUN/CREAT (test code = 12 RATIO 2235) SODIUM (test code = 2231) 139 MEQ/L POTASSIUM (test code = 2228) 3.9 MEQ/L CHLORIDE (test code = 2215) 102 MEQ/L CARBON DIOXIDE (test code = 25 MEQ/L 2205) CALCIUM (test code = 2209) 9.5 MG/DL PROTEIN, TOTAL (test code = 7.8 G/DL 2228) ALBUMIN (test code = 2201) 4.6 G/DL CALC GLOBULIN (test code = 3.2 G/DL 2239) CALC A/G RATIO (test code = 1.4 RATIO 2234) BILIRUBIN, TOTAL (test code = 0.3 MG/DL 2206) ALKALINE PHOSPHATASE (test 53 U/L code = 2204) AST (test code = 2218) 19 U/L ALT (test code = 2219) 13 U/L LIPID [id number] 00:00:00 Test Item Value Reference Range Interpretation Comments CHOLESTEROL (test code = 2210) 222 MG/DL TRIGLYCERIDES (test code = 2232) 272 MG/DL HDL CHOLESTEROL (test code = 2220) 49 MG/DL CALC LDL CHOL (test code = 2237) 131 MG/DL RISK RATIO LDL/HDL (test code = 2.67 RATIO 2238) LIPID [id number] 00:00:00 Test Item Value Reference Range Interpretation Comments CHOLESTEROL (test code = 2210) 222 MG/DL TRIGLYCERIDES (test code = 2232) 272 MG/DL HDL CHOLESTEROL (test code = 2220) 49 MG/DL CALC LDL CHOL (test code = 2237) 131 MG/DL RISK RATIO LDL/HDL (test code = 2.67 RATIO 2238) HEMOGLOBIN [id number] 00:00:00 Test Item Value Reference Range Interpretation Comments HEMOGLOBIN A1c (test code = 20636) 5.7 % HEMOGLOBIN [id number] 00:00:00 Test Item Value Reference Range Interpretation Comments HEMOGLOBIN A1c (test code = 73154) 5.7 % HEMOGLOBIN [id number] 00:00:00 Test Item Value Reference Range Interpretation Comments HEMOGLOBIN A1c (test code = 22267) 5.7 % TSH, THIRD [id number] 00:00:00 Test Item Value Reference Range Interpretation Comments TSH, THIRD GENERATION (test code 1.300 UIU/ML = 2821) TSH, THIRD [id number] 00:00:00 Test Item Value Reference Range Interpretation Comments TSH, THIRD GENERATION (test code 1.300 UIU/ML = 2821) TSH, THIRD [id number] 00:00:00 Test Item Value Reference Range Interpretation Comments TSH, THIRD GENERATION (test code 1.300 UIU/ML = 2821) ALBUMIN/CREATININE RATIO, RANDOM [id number] 00:00:00 Test Item Value Reference Range Interpretation Comments CREATININE, URINE, CONC. (test 125.4 MG/DL code = 2072) ALBUMIN, URINE, RANDOM (test code 0.7 MG/DL = 77019) CALC ALBUMIN/CREAT, RND (test 6 MG/G code = 83802) ALBUMIN/CREATININE RATIO, RANDOM [id number] 00:00:00 Test Item Value Reference Range Interpretation Comments CREATININE, URINE, CONC. (test 125.4 MG/DL code = 2072) ALBUMIN, URINE, RANDOM (test code 0.7 MG/DL = 98140) CALC ALBUMIN/CREAT, RND (test 6 MG/G code = 88695) CBC W/AUTO [id number] 00:00:00 Test Item Value Reference Range Interpretation Comments WBC (test code = 1001) 5.8 K/UL RBC (test code = 1002) 4.39 M/UL HEMOGLOBIN (test code = 1003) 12.6 G/DL HEMATOCRIT (test code = 1004) 37.6 % MCV (test code = 1005) 85.6 fL MCH (test code = 1006) 28.7 PG MCHC (test code = 1007) 33.5 G/DL RDW (test code = 1038) 13.3 % NEUTROPHILS (test code = 1008) 39.9 % LYMPHOCYTES (test code = 1010) 51.8 % MONOCYTES (test code = 1011) 6.6 % EOSINOPHILS (test code = 1012) 1.0 % BASOPHILS (test code = 1013) 0.5 % IMMATURE GRANULOCYTES (test 0.2 % code = 1036) NUCLEATED RBCS (test code = 0.0 /100WBC'S 1065) PLATELET COUNT (test code = 301 K/UL 1015) ABSOLUTE NEUTROPHILS (test code 2.31 K/UL = 1066) ABSOLUTE LYMPHOCYTES (test code 3.00 K/UL = 1067) ABSOLUTE MONOCYTES (test code = 0.38 K/UL 1068) ABSOLUTE EOSINOPHILS (test code 0.06 K/UL = 1040) ABSOLUTE BASOPHILS (test code = 0.03 K/UL 1069) ABS IMMATURE GRANULOCYTES (test 0.01 K/UL code = 1020) ABS NUCLEATED RBCS (test code = 0.00 K/UL 84782) CBC W/AUTO [id number] 00:00:00 Test Item Value Reference Range Interpretation Comments WBC (test code = 1001) 5.8 K/UL RBC (test code = 1002) 4.39 M/UL HEMOGLOBIN (test code = 1003) 12.6 G/DL HEMATOCRIT (test code = 1004) 37.6 % MCV (test code = 1005) 85.6 fL MCH (test code = 1006) 28.7 PG MCHC (test code = 1007) 33.5 G/DL RDW (test code = 1038) 13.3 % NEUTROPHILS (test code = 1008) 39.9 % LYMPHOCYTES (test code = 1010) 51.8 % MONOCYTES (test code = 1011) 6.6 % EOSINOPHILS (test code = 1012) 1.0 % BASOPHILS (test code = 1013) 0.5 % IMMATURE GRANULOCYTES (test 0.2 % code = 1036) NUCLEATED RBCS (test code = 0.0 /100WBC'S 1065) PLATELET COUNT (test code = 301 K/UL 1015) ABSOLUTE NEUTROPHILS (test code 2.31 K/UL = 1066) ABSOLUTE LYMPHOCYTES (test code 3.00 K/UL = 1067) ABSOLUTE MONOCYTES (test code = 0.38 K/UL 1068) ABSOLUTE EOSINOPHILS (test code 0.06 K/UL = 1040) ABSOLUTE BASOPHILS (test code = 0.03 K/UL 1069) ABS IMMATURE GRANULOCYTES (test 0.01 K/UL code = 1020) ABS NUCLEATED RBCS (test code = 0.00 K/UL 45293) CBC W/AUTO [id number] 00:00:00 Test Item Value Reference Range Interpretation Comments WBC (test code = 1001) 5.8 K/UL RBC (test code = 1002) 4.39 M/UL HEMOGLOBIN (test code = 1003) 12.6 G/DL HEMATOCRIT (test code = 1004) 37.6 % MCV (test code = 1005) 85.6 fL MCH (test code = 1006) 28.7 PG MCHC (test code = 1007) 33.5 G/DL RDW (test code = 1038) 13.3 % NEUTROPHILS (test code = 1008) 39.9 % LYMPHOCYTES (test code = 1010) 51.8 % MONOCYTES (test code = 1011) 6.6 % EOSINOPHILS (test code = 1012) 1.0 % BASOPHILS (test code = 1013) 0.5 % IMMATURE GRANULOCYTES (test 0.2 % code = 1036) NUCLEATED RBCS (test code = 0.0 /100WBC'S 1065) PLATELET COUNT (test code = 301 K/UL 1015) ABSOLUTE NEUTROPHILS (test code 2.31 K/UL = 1066) ABSOLUTE LYMPHOCYTES (test code 3.00 K/UL = 1067) ABSOLUTE MONOCYTES (test code = 0.38 K/UL 1068) ABSOLUTE EOSINOPHILS (test code 0.06 K/UL = 1040) ABSOLUTE BASOPHILS (test code = 0.03 K/UL 1069) ABS IMMATURE GRANULOCYTES (test 0.01 K/UL code = 1020) ABS NUCLEATED RBCS (test code = 0.00 K/UL 77990) COMPREHENSIVE METABOLIC [id number] 00:00:00 Test Item Value Reference Range Interpretation Comments GLUCOSE (test code = 2217) 94 MG/DL BUN (test code = 2208) 9 MG/DL CREATININE (test code = 2214) 0.73 MG/DL eGFR (2020 CKD-EPI) (test 113 ML/MIN/1.73 code = 02449) CALC BUN/CREAT (test code = 12 RATIO 2235) SODIUM (test code = 2231) 139 MEQ/L POTASSIUM (test code = 2228) 3.9 MEQ/L CHLORIDE (test code = 2215) 102 MEQ/L CARBON DIOXIDE (test code = 25 MEQ/L 2205) CALCIUM (test code = 2209) 9.5 MG/DL PROTEIN, TOTAL (test code = 7.8 G/DL 2228) ALBUMIN (test code = 2201) 4.6 G/DL CALC GLOBULIN (test code = 3.2 G/DL 2240) CALC A/G RATIO (test code = 1.4 RATIO 2234) BILIRUBIN, TOTAL (test code = 0.3 MG/DL 2206) ALKALINE PHOSPHATASE (test 53 U/L code = 2204) AST (test code = 2218) 19 U/L ALT (test code = 2219) 13 U/L COMPREHENSIVE METABOLIC [id number] 00:00:00 Test Item Value Reference Range Interpretation Comments GLUCOSE (test code = 2217) 94 MG/DL BUN (test code = 2208) 9 MG/DL CREATININE (test code = 2214) 0.73 MG/DL eGFR (2020 CKD-EPI) (test 113 ML/MIN/1.73 code = 11711) CALC BUN/CREAT (test code = 12 RATIO 2235) SODIUM (test code = 2231) 139 MEQ/L POTASSIUM (test code = 2228) 3.9 MEQ/L CHLORIDE (test code = 2215) 102 MEQ/L CARBON DIOXIDE (test code = 25 MEQ/L 2205) CALCIUM (test code = 2209) 9.5 MG/DL PROTEIN, TOTAL (test code = 7.8 G/DL 2228) ALBUMIN (test code = 2201) 4.6 G/DL CALC GLOBULIN (test code = 3.2 G/DL 2239) CALC A/G RATIO (test code = 1.4 RATIO 2234) BILIRUBIN, TOTAL (test code = 0.3 MG/DL 2206) ALKALINE PHOSPHATASE (test 53 U/L code = 2204) AST (test code = 2218) 19 U/L ALT (test code = 2219) 13 U/L LIPID [id number] 00:00:00 Test Item Value Reference Range Interpretation Comments CHOLESTEROL (test code = 2210) 222 MG/DL TRIGLYCERIDES (test code = 2232) 272 MG/DL HDL CHOLESTEROL (test code = 2220) 49 MG/DL CALC LDL CHOL (test code = 2237) 131 MG/DL RISK RATIO LDL/HDL (test code = 2.67 RATIO 2238) LIPID [id number] 00:00:00 Test Item Value Reference Range Interpretation Comments CHOLESTEROL (test code = 2210) 222 MG/DL TRIGLYCERIDES (test code = 2232) 272 MG/DL HDL CHOLESTEROL (test code = 2220) 49 MG/DL CALC LDL CHOL (test code = 2237) 131 MG/DL RISK RATIO LDL/HDL (test code = 2.67 RATIO 2238) HEMOGLOBIN [id number] 00:00:00 Test Item Value Reference Range Interpretation Comments HEMOGLOBIN A1c (test code = 84908) 5.7 % HEMOGLOBIN [id number] 00:00:00 Test Item Value Reference Range Interpretation Comments HEMOGLOBIN A1c (test code = 51606) 5.7 % HEMOGLOBIN [id number] 00:00:00 Test Item Value Reference Range Interpretation Comments HEMOGLOBIN A1c (test code = 22711) 5.7 % TSH, THIRD [id number] 00:00:00 Test Item Value Reference Range Interpretation Comments TSH, THIRD GENERATION (test code 1.300 UIU/ML = 2821) TSH, THIRD [id number] 00:00:00 Test Item Value Reference Range Interpretation Comments TSH, THIRD GENERATION (test code 1.300 UIU/ML = 2821) TSH, THIRD [id number] 00:00:00 Test Item Value Reference Range Interpretation Comments TSH, THIRD GENERATION (test code 1.300 UIU/ML = 2821) ALBUMIN/CREATININE RATIO, RANDOM [id number] 00:00:00 Test Item Value Reference Range Interpretation Comments CREATININE, URINE, CONC. (test 125.4 MG/DL code = 2072) ALBUMIN, URINE, RANDOM (test code 0.7 MG/DL = 62601) CALC ALBUMIN/CREAT, RND (test 6 MG/G code = 22668) ALBUMIN/CREATININE RATIO, RANDOM [id number] 00:00:00 Test Item Value Reference Range Interpretation Comments CREATININE, URINE, CONC. (test 125.4 MG/DL code = 2072) ALBUMIN, URINE, RANDOM (test code 0.7 MG/DL = 88426) CALC ALBUMIN/CREAT, RND (test 6 MG/G code = 08256) VAGINAL PATHOGENS DNA [id number] 14:16:13 Test Item Value Reference Range Interpretation Comments RONNA SPECIES (test NEGATIVE NEGATIVE code = ) G. VAGINALIS (test POSITIVE NEGATIVE A code = 92702) T. VAGINALIS (test NEGATIVE NEGATIVE UNLESS OTHERWISE code = 59855) INDICATED, ALL TESTING PERFORMED [facility] [address] [place] [address] [id number] LABORATORY DIRE CTOR: RODRIGO PISANO M.D. CLIA NUMBER [id number] [place] [id number] VAGINAL PATHOGENS DNA PANEL [ADDED]2021-10-05 00:00:00 Test Item Value Reference Range Interpretation Comments RONNA SPECIES (test code = 40914) NEGATIVE G. VAGINALIS (test code = 21141) POSITIVE T. VAGINALIS (test code = 69722) NEGATIVE VAGINAL PATHOGENS DNA PANEL [ADDED]2021-10-05 00:00:00 Test Item Value Reference Range Interpretation Comments RONNA SPECIES (test code = 65326) NEGATIVE G. VAGINALIS (test code = 36275) POSITIVE T. VAGINALIS (test code = 33209) NEGATIVE VAGINAL PATHOGENS DNA PANEL [ADDED]2021-10-05 00:00:00 Test Item Value Reference Range Interpretation Comments RONNA SPECIES (test code = 82801) NEGATIVE G. VAGINALIS (test code = 22192) POSITIVE T. VAGINALIS (test code = 58377) NEGATIVE VAGINAL PATHOGENS DNA PANEL [ADDED]2021-10-05 00:00:00 Test Item Value Reference Range Interpretation Comments RONNA SPECIES (test code = 51345) NEGATIVE G. VAGINALIS (test code = 55469) POSITIVE T. VAGINALIS (test code = 25550) NEGATIVE VAGINAL PATHOGENS DNA PANEL [ADDED]2021-10-05 00:00:00 Test Item Value Reference Range Interpretation Comments RONNA SPECIES (test code = 41088) NEGATIVE G. VAGINALIS (test code = 21170) POSITIVE T. VAGINALIS (test code = 26209) NEGATIVE VAGINAL PATHOGENS DNA PANEL [ADDED]2021-10-05 00:00:00 Test Item Value Reference Range Interpretation Comments RONNA SPECIES (test code = 93906) NEGATIVE G. VAGINALIS (test code = 88743) POSITIVE T. VAGINALIS (test code = 00380) NEGATIVE VAGINAL PATHOGENS DNA PANEL [ADDED]2021-10-05 00:00:00 Test Item Value Reference Range Interpretation Comments RONNA SPECIES (test code = 32566) NEGATIVE G. VAGINALIS (test code = 66498) POSITIVE T. VAGINALIS (test code = 87625) NEGATIVE VAGINAL PATHOGENS DNA PANEL [ADDED]2021-10-05 00:00:00 Test Item Value Reference Range Interpretation Comments RONNA SPECIES (test code = 15579) NEGATIVE G. VAGINALIS (test code = 08750) POSITIVE T. VAGINALIS (test code = 26383) NEGATIVE VAGINAL PATHOGENS DNA PANEL [ADDED]2021-10-05 00:00:00 Test Item Value Reference Range Interpretation Comments RONNA SPECIES (test code = 09589) NEGATIVE G. VAGINALIS (test code = 77679) POSITIVE T. VAGINALIS (test code = 37380) NEGATIVE VAGINAL PATHOGENS DNA PANEL [ADDED]2021-10-05 00:00:00 Test Item Value Reference Range Interpretation Comments RONNA SPECIES (test code = ) NEGATIVE G. VAGINALIS (test code = ) POSITIVE T. VAGINALIS (test code = 21865) NEGATIVE MUMPS IgG AND [id number] 00:00:00 Test Item Value Reference Range Interpretation Comments MUMPS VIRUS IgG (test code = 32.3 AU/mL 78509) MUMPS VIRUS IgM (test code = 4587) 0.35 IV MUMPS IgG AND [id number] 00:00:00 Test Item Value Reference Range Interpretation Comments MUMPS VIRUS IgG (test code = 32.3 AU/mL 08861) MUMPS VIRUS IgM (test code = 4587) 0.35 IV MUMPS IgG AND [id number] 00:00:00 Test Item Value Reference Range Interpretation Comments MUMPS VIRUS IgG (test code = 32.3 AU/mL 04600) MUMPS VIRUS IgM (test code = 4587) 0.35 IV MUMPS IgG AND [id number] 00:00:00 Test Item Value Reference Range Interpretation Comments MUMPS VIRUS IgG (test code = 32.3 AU/mL 73072) MUMPS VIRUS IgM (test code = 4587) 0.35 IV MUMPS IgG AND [id number] 00:00:00 Test Item Value Reference Range Interpretation Comments MUMPS VIRUS IgG (test code = 32.3 AU/mL 86022) MUMPS VIRUS IgM (test code = 4587) 0.35 IV MUMPS IgG AND [id number] 00:00:00 Test Item Value Reference Range Interpretation Comments MUMPS VIRUS IgG (test code = 32.3 AU/mL 32594) MUMPS VIRUS IgM (test code = 4587) 0.35 IV MUMPS IgG AND [id number] 00:00:00 Test Item Value Reference Range Interpretation Comments MUMPS VIRUS IgG (test code = 32.3 AU/mL 21147) MUMPS VIRUS IgM (test code = 4587) 0.35 IV MUMPS IgG AND [id number] 00:00:00 Test Item Value Reference Range Interpretation Comments MUMPS VIRUS IgG (test code = 32.3 AU/mL 36147) MUMPS VIRUS IgM (test code = 4587) 0.35 IV MUMPS IgG AND [id number] 00:00:00 Test Item Value Reference Range Interpretation Comments MUMPS VIRUS IgG (test code = 32.3 AU/mL 14776) MUMPS VIRUS IgM (test code = 4587) 0.35 IV MUMPS IgG AND [id number] 00:00:00 Test Item Value Reference Range Interpretation Comments MUMPS VIRUS IgG (test code = 32.3 AU/mL 47948) MUMPS VIRUS IgM (test code = 4587) 0.35 IV VARICELLA ZOSTER [id number] 00:00:00 Test Item Value Reference Range Interpretation Comments VARICELLA ZOSTER IgG (test code = >2000 INDEX 39374) VARICELLA ZOSTER [id number] 00:00:00 Test Item Value Reference Range Interpretation Comments VARICELLA ZOSTER IgG (test code = >2000 INDEX 33334) RUBEOLA IgG [id number] 00:00:00 Test Item Value Reference Range Interpretation Comments RUBEOLA IgG ANTIBODY (test code = 166.0 AU/ML 33254) RUBEOLA IgG [id number] 00:00:00 Test Item Value Reference Range Interpretation Comments RUBEOLA IgG ANTIBODY (test code = 166.0 AU/ML 25858) VARICELLA ZOSTER [id number] 00:00:00 Test Item Value Reference Range Interpretation Comments VARICELLA ZOSTER IgG (test code = >2000 INDEX 64964) VARICELLA ZOSTER [id number] 00:00:00 Test Item Value Reference Range Interpretation Comments VARICELLA ZOSTER IgG (test code = >2000 INDEX 27327) RUBEOLA IgG [id number] 00:00:00 Test Item Value Reference Range Interpretation Comments RUBEOLA IgG ANTIBODY (test code = 166.0 AU/ML 44874) RUBEOLA IgG [id number] 00:00:00 Test Item Value Reference Range Interpretation Comments RUBEOLA IgG ANTIBODY (test code = 166.0 AU/ML 24059) VARICELLA ZOSTER [id number] 00:00:00 Test Item Value Reference Range Interpretation Comments VARICELLA ZOSTER IgG (test code = >2000 INDEX 45657) VARICELLA ZOSTER [id number] 00:00:00 Test Item Value Reference Range Interpretation Comments VARICELLA ZOSTER IgG (test code = >2000 INDEX 93457) VARICELLA ZOSTER [id number] 00:00:00 Test Item Value Reference Range Interpretation Comments VARICELLA ZOSTER IgG (test code = >2000 INDEX 01473) RUBEOLA IgG [id number] 00:00:00 Test Item Value Reference Range Interpretation Comments RUBEOLA IgG ANTIBODY (test code = 166.0 AU/ML 20359) RUBEOLA IgG [id number] 00:00:00 Test Item Value Reference Range Interpretation Comments RUBEOLA IgG ANTIBODY (test code = 166.0 AU/ML 57530) VARICELLA ZOSTER [id number] 00:00:00 Test Item Value Reference Range Interpretation Comments VARICELLA ZOSTER IgG (test code = >2000 INDEX 27740) VARICELLA ZOSTER [id number] 00:00:00 Test Item Value Reference Range Interpretation Comments VARICELLA ZOSTER IgG (test code = >2000 INDEX 05266) VARICELLA ZOSTER [id number] 00:00:00 Test Item Value Reference Range Interpretation Comments VARICELLA ZOSTER IgG (test code = >2000 INDEX 63803) RUBEOLA IgG [id number] 00:00:00 Test Item Value Reference Range Interpretation Comments RUBEOLA IgG ANTIBODY (test code = 166.0 AU/ML 52618) RUBEOLA IgG [id number] 00:00:00 Test Item Value Reference Range Interpretation Comments RUBEOLA IgG ANTIBODY (test code = 166.0 AU/ML 37133) RUBEOLA IgG [id number] 00:00:00 Test Item Value Reference Range Interpretation Comments RUBEOLA IgG ANTIBODY (test code = 166.0 AU/ML 71573) RUBEOLA IgG [id number] 00:00:00 Test Item Value Reference Range Interpretation Comments RUBEOLA IgG ANTIBODY (test code = 166.0 AU/ML 45760) RUBELLA ANTIBODY [id number] 00:00:00 Test Item Value Reference Range Interpretation Comments RUBELLA ANTIBODY SCREEN (test code 247 IU/ML = 4600) RUBELLA IgG INTERP (test code = REACTIVE 62804) RUBELLA ANTIBODY [id number] 00:00:00 Test Item Value Reference Range Interpretation Comments RUBELLA ANTIBODY SCREEN (test code 247 IU/ML = 4600) RUBELLA IgG INTERP (test code = REACTIVE 61552) RUBELLA ANTIBODY [id number] 00:00:00 Test Item Value Reference Range Interpretation Comments RUBELLA ANTIBODY SCREEN (test code 247 IU/ML = 4600) RUBELLA IgG INTERP (test code = REACTIVE 41901) RUBELLA ANTIBODY [id number] 00:00:00 Test Item Value Reference Range Interpretation Comments RUBELLA ANTIBODY SCREEN (test code 247 IU/ML = 4600) RUBELLA IgG INTERP (test code = REACTIVE 11148) RUBELLA ANTIBODY [id number] 00:00:00 Test Item Value Reference Range Interpretation Comments RUBELLA ANTIBODY SCREEN (test code 247 IU/ML = 4600) RUBELLA IgG INTERP (test code = REACTIVE 39616) RUBELLA ANTIBODY [id number] 00:00:00 Test Item Value Reference Range Interpretation Comments RUBELLA ANTIBODY SCREEN (test code 247 IU/ML = 4600) RUBELLA IgG INTERP (test code = REACTIVE 06003) RUBELLA ANTIBODY [id number] 00:00:00 Test Item Value Reference Range Interpretation Comments RUBELLA ANTIBODY SCREEN (test code 247 IU/ML = 4600) RUBELLA IgG INTERP (test code = REACTIVE 75366) RUBELLA ANTIBODY [id number] 00:00:00 Test Item Value Reference Range Interpretation Comments RUBELLA ANTIBODY SCREEN (test code 247 IU/ML = 4600) RUBELLA IgG INTERP (test code = REACTIVE 73465) RUBELLA ANTIBODY [id number] 00:00:00 Test Item Value Reference Range Interpretation Comments RUBELLA ANTIBODY SCREEN (test code 247 IU/ML = 4600) RUBELLA IgG INTERP (test code = REACTIVE 35181) RUBELLA ANTIBODY [id number] 00:00:00 Test Item Value Reference Range Interpretation Comments RUBELLA ANTIBODY SCREEN (test code 247 IU/ML = 4600) RUBELLA IgG INTERP (test code = REACTIVE 26054) VAGINAL PATHOGENS DNA [id number] 00:00:00 Test Item Value Reference Range Interpretation Comments RONNA SPECIES (test code = ) NEGATIVE G. VAGINALIS (test code = 12447) POSITIVE T. VAGINALIS (test code = 66284) NEGATIVE VAGINAL PATHOGENS DNA [id number] 00:00:00 Test Item Value Reference Range Interpretation Comments RONNA SPECIES (test code = ) NEGATIVE G. VAGINALIS (test code = 32164) POSITIVE T. VAGINALIS (test code = 50683) NEGATIVE GC AND CHLAMYDIA, AMPLIFIED, [id number] 00:00:00 Test Item Value Reference Range Interpretation Comments GONORRHEA, NAAT (test code = 57421) NEGATIVE CHLAMYDIA, NAAT (test code = 42148) NEGATIVE GC AND CHLAMYDIA, AMPLIFIED, [id number] 00:00:00 Test Item Value Reference Range Interpretation Comments GONORRHEA, NAAT (test code = 66014) NEGATIVE CHLAMYDIA, NAAT (test code = 57382) NEGATIVE HIV AB/AG COMBO RFLX [id number] 00:00:00 Test Item Value Reference Range Interpretation Comments HIV 1/2 4TH GEN, RFLX CONF (test NON-REACTIVE code = 3514) HIV AB/AG COMBO RFLX [id number] 00:00:00 Test Item Value Reference Range Interpretation Comments HIV 1/2 4TH GEN, RFLX CONF (test NON-REACTIVE code = 3514) [id number] 00:00:00 Test Item Value Reference Range Interpretation Comments RPR RESULT (test code = NON-REACTIVE 3501) RPR TITER (test code = 3500) NOT INDIC. TITER [id number] 00:00:00 Test Item Value Reference Range Interpretation Comments RPR RESULT (test code = NON-REACTIVE 3501) RPR TITER (test code = 3500) NOT INDIC. TITER [id number] 00:00:00 Test Item Value Reference Range Interpretation Comments RPR RESULT (test code = NON-REACTIVE 3501) RPR TITER (test code = 3500) NOT INDIC. TITER VAGINAL PATHOGENS DNA [id number] 00:00:00 Test Item Value Reference Range Interpretation Comments RONNA SPECIES (test code = ) NEGATIVE G. VAGINALIS (test code = 65608) POSITIVE T. VAGINALIS (test code = 99254) NEGATIVE VAGINAL PATHOGENS DNA [id number] 00:00:00 Test Item Value Reference Range Interpretation Comments RONNA SPECIES (test code = 18245) NEGATIVE G. VAGINALIS (test code = 26868) POSITIVE T. VAGINALIS (test code = 38256) NEGATIVE GC AND CHLAMYDIA, AMPLIFIED, [id number] 00:00:00 Test Item Value Reference Range Interpretation Comments GONORRHEA, NAAT (test code = 30312) NEGATIVE CHLAMYDIA, NAAT (test code = 03606) NEGATIVE GC AND CHLAMYDIA, AMPLIFIED, [id number] 00:00:00 Test Item Value Reference Range Interpretation Comments GONORRHEA, NAAT (test code = 71810) NEGATIVE CHLAMYDIA, NAAT (test code = 44178) NEGATIVE HIV AB/AG COMBO RFLX [id number] 00:00:00 Test Item Value Reference Range Interpretation Comments HIV 1/2 4TH GEN, RFLX CONF (test NON-REACTIVE code = 3514) VAGINAL PATHOGENS DNA [id number] 00:00:00 Test Item Value Reference Range Interpretation Comments RONNA SPECIES (test code = ) NEGATIVE G. VAGINALIS (test code = 55660) POSITIVE T. VAGINALIS (test code = 79832) NEGATIVE HIV AB/AG COMBO RFLX [id number] 00:00:00 Test Item Value Reference Range Interpretation Comments HIV 1/2 4TH GEN, RFLX CONF (test NON-REACTIVE code = 3514) [id number] 00:00:00 Test Item Value Reference Range Interpretation Comments RPR RESULT (test code = NON-REACTIVE 3501) RPR TITER (test code = 3500) NOT INDIC. TITER [id number] 00:00:00 Test Item Value Reference Range Interpretation Comments RPR RESULT (test code = NON-REACTIVE 3501) RPR TITER (test code = 3500) NOT INDIC. TITER [id number] 00:00:00 Test Item Value Reference Range Interpretation Comments RPR RESULT (test code = NON-REACTIVE 3501) RPR TITER (test code = 3500) NOT INDIC. TITER VAGINAL PATHOGENS DNA [id number] 00:00:00 Test Item Value Reference Range Interpretation Comments RONNA SPECIES (test code = ) NEGATIVE G. VAGINALIS (test code = 29996) POSITIVE T. VAGINALIS (test code = 61377) NEGATIVE VAGINAL PATHOGENS DNA [id number] 00:00:00 Test Item Value Reference Range Interpretation Comments RONNA SPECIES (test code = 73368) NEGATIVE G. VAGINALIS (test code = 00987) POSITIVE T. VAGINALIS (test code = 58083) NEGATIVE VAGINAL PATHOGENS DNA [id number] 00:00:00 Test Item Value Reference Range Interpretation Comments RONNA SPECIES (test code = 48246) NEGATIVE G. VAGINALIS (test code = 44456) POSITIVE T. VAGINALIS (test code = ) NEGATIVE GC AND CHLAMYDIA, AMPLIFIED, [id number] 00:00:00 Test Item Value Reference Range Interpretation Comments GONORRHEA, NAAT (test code = 06239) NEGATIVE CHLAMYDIA, NAAT (test code = 41664) NEGATIVE GC AND CHLAMYDIA, AMPLIFIED, [id number] 00:00:00 Test Item Value Reference Range Interpretation Comments GONORRHEA, NAAT (test code = 66009) NEGATIVE CHLAMYDIA, NAAT (test code = 14921) NEGATIVE HIV AB/AG COMBO RFLX [id number] 00:00:00 Test Item Value Reference Range Interpretation Comments HIV 1/2 4TH GEN, RFLX CONF (test NON-REACTIVE code = 3514) HIV AB/AG COMBO RFLX [id number] 00:00:00 Test Item Value Reference Range Interpretation Comments HIV 1/2 4TH GEN, RFLX CONF (test NON-REACTIVE code = 3514) [id number] 00:00:00 Test Item Value Reference Range Interpretation Comments RPR RESULT (test code = NON-REACTIVE 3501) RPR TITER (test code = 3500) NOT INDIC. TITER [id number] 00:00:00 Test Item Value Reference Range Interpretation Comments RPR RESULT (test code = NON-REACTIVE 3501) RPR TITER (test code = 3500) NOT INDIC. TITER [id number] 00:00:00 Test Item Value Reference Range Interpretation Comments RPR RESULT (test code = NON-REACTIVE 3501) RPR TITER (test code = 3500) NOT INDIC. TITER GC AND CHLAMYDIA, AMPLIFIED, [id number] 00:00:00 Test Item Value Reference Range Interpretation Comments GONORRHEA, NAAT (test code = 47938) NEGATIVE CHLAMYDIA, NAAT (test code = 95942) NEGATIVE GC AND CHLAMYDIA, AMPLIFIED, [id number] 00:00:00 Test Item Value Reference Range Interpretation Comments GONORRHEA, NAAT (test code = 92867) NEGATIVE CHLAMYDIA, NAAT (test code = 89329) NEGATIVE VAGINAL PATHOGENS DNA [id number] 00:00:00 Test Item Value Reference Range Interpretation Comments RONNA SPECIES (test code = ) NEGATIVE G. VAGINALIS (test code = 61346) POSITIVE T. VAGINALIS (test code = ) NEGATIVE VAGINAL PATHOGENS DNA [id number] 00:00:00 Test Item Value Reference Range Interpretation Comments RONNA SPECIES (test code = ) NEGATIVE G. VAGINALIS (test code = ) POSITIVE T. VAGINALIS (test code = ) NEGATIVE GC AND CHLAMYDIA, AMPLIFIED, [id number] 00:00:00 Test Item Value Reference Range Interpretation Comments GONORRHEA, NAAT (test code = 38259) NEGATIVE CHLAMYDIA, NAAT (test code = 78779) NEGATIVE HIV AB/AG COMBO RFLX [id number] 00:00:00 Test Item Value Reference Range Interpretation Comments HIV 1/2 4TH GEN, RFLX CONF (test NON-REACTIVE code = 3514) GC AND CHLAMYDIA, AMPLIFIED, [id number] 00:00:00 Test Item Value Reference Range Interpretation Comments GONORRHEA, NAAT (test code = 55343) NEGATIVE CHLAMYDIA, NAAT (test code = 12338) NEGATIVE HIV AB/AG COMBO RFLX [id number] 00:00:00 Test Item Value Reference Range Interpretation Comments HIV 1/2 4TH GEN, RFLX CONF (test NON-REACTIVE code = 3514) HIV AB/AG COMBO RFLX [id number] 00:00:00 Test Item Value Reference Range Interpretation Comments HIV 1/2 4TH GEN, RFLX CONF (test NON-REACTIVE code = 3514) [id number] 00:00:00 Test Item Value Reference Range Interpretation Comments RPR RESULT (test code = NON-REACTIVE 3501) RPR TITER (test code = 3500) NOT INDIC. TITER [id number] 00:00:00 Test Item Value Reference Range Interpretation Comments RPR RESULT (test code = NON-REACTIVE 3501) RPR TITER (test code = 3500) NOT INDIC. TITER [id number] 00:00:00 Test Item Value Reference Range Interpretation Comments RPR RESULT (test code = NON-REACTIVE 3501) RPR TITER (test code = 3500) NOT INDIC. TITER HIV AB/AG COMBO RFLX [id number] 00:00:00 Test Item Value Reference Range Interpretation Comments HIV 1/2 4TH GEN, RFLX CONF (test NON-REACTIVE code = 3514) [id number] 00:00:00 Test Item Value Reference Range Interpretation Comments RPR RESULT (test code = NON-REACTIVE 3501) RPR TITER (test code = 3500) NOT INDIC. TITER [id number] 00:00:00 Test Item Value Reference Range Interpretation Comments RPR RESULT (test code = NON-REACTIVE 3501) RPR TITER (test code = 3500) NOT INDIC. TITER [id number] 00:00:00 Test Item Value Reference Range Interpretation Comments RPR RESULT (test code = NON-REACTIVE 3501) RPR TITER (test code = 3500) NOT INDIC. TITER [id number] 00:00:00 Test Item Value Reference Range Interpretation Comments TESTOSTERONE (test code = 2830) 34 NG/DL [id number] 00:00:00 Test Item Value Reference Range Interpretation Comments TESTOSTERONE (test code = 2830) 34 NG/DL [id number] 00:00:00 Test Item Value Reference Range Interpretation Comments PROGESTERONE (test code = 2790) 5.24 NG/ML [id number] 00:00:00 Test Item Value Reference Range Interpretation Comments PROGESTERONE (test code = 2790) 5.24 NG/ML HEMOGLOBIN [id number] 00:00:00 Test Item Value Reference Range Interpretation Comments HEMOGLOBIN A1c (test code = 10903) 5.4 % HEMOGLOBIN [id number] 00:00:00 Test Item Value Reference Range Interpretation Comments HEMOGLOBIN A1c (test code = 28971) 5.4 % HEMOGLOBIN [id number] 00:00:00 Test Item Value Reference Range Interpretation Comments HEMOGLOBIN A1c (test code = 65603) 5.4 % LIPID [id number] 00:00:00 Test Item Value Reference Range Interpretation Comments CHOLESTEROL (test code = 2210) 181 MG/DL TRIGLYCERIDES (test code = 2232) 126 MG/DL HDL CHOLESTEROL (test code = 2220) 52 MG/DL CALC LDL CHOL (test code = 2237) 106 MG/DL RISK RATIO LDL/HDL (test code = 2.04 RATIO 2238) LIPID [id number] 00:00:00 Test Item Value Reference Range Interpretation Comments CHOLESTEROL (test code = 2210) 181 MG/DL TRIGLYCERIDES (test code = 2232) 126 MG/DL HDL CHOLESTEROL (test code = 2220) 52 MG/DL CALC LDL CHOL (test code = 2237) 106 MG/DL RISK RATIO LDL/HDL (test code = 2.04 RATIO 2238) COMPREHENSIVE METABOLIC [id number] 00:00:00 Test Item Value Reference Range Interpretation Comments GLUCOSE (test code = 2217) 90 MG/DL BUN (test code = 2208) 16 MG/DL CREATININE (test code = 2214) 0.67 MG/DL eGFR AMER. (test code 137 ML/MIN/1.73 = 50862) eGFR NON- AMER. (test 118 ML/MIN/1.73 code = 99783) CALC BUN/CREAT (test code = 24 RATIO 2235) SODIUM (test code = 2231) 135 MEQ/L POTASSIUM (test code = 2228) 4.5 MEQ/L CHLORIDE (test code = 2215) 105 MEQ/L CARBON DIOXIDE (test code = 20 MEQ/L 220) CALCIUM (test code = 2209) 9.5 MG/DL PROTEIN, TOTAL (test code = 7.5 G/DL 2228) ALBUMIN (test code = 2201) 4.4 G/DL CALC GLOBULIN (test code = 3.1 G/DL 0) CALC A/G RATIO (test code = 1.4 RATIO 2233) BILIRUBIN, TOTAL (test code = 0.5 MG/DL 2206) ALKALINE PHOSPHATASE (test 41 U/L code = 2204) AST (test code = 2218) 19 U/L ALT (test code = 2219) 17 U/L COMPREHENSIVE METABOLIC [id number] 00:00:00 Test Item Value Reference Range Interpretation Comments GLUCOSE (test code = 2217) 90 MG/DL BUN (test code = 2208) 16 MG/DL CREATININE (test code = 2214) 0.67 MG/DL eGFR AMER. (test code 137 ML/MIN/1.73 = 83192) eGFR NON- AMER. (test 118 ML/MIN/1.73 code = 46834) CALC BUN/CREAT (test code = 24 RATIO 2235) SODIUM (test code = 2231) 135 MEQ/L POTASSIUM (test code = 2228) 4.5 MEQ/L CHLORIDE (test code = 2215) 105 MEQ/L CARBON DIOXIDE (test code = 20 MEQ/L 2206) CALCIUM (test code = 2209) 9.5 MG/DL PROTEIN, TOTAL (test code = 7.5 G/DL 2229) ALBUMIN (test code = 2201) 4.4 G/DL CALC GLOBULIN (test code = 3.1 G/DL 2240) CALC A/G RATIO (test code = 1.4 RATIO 2234) BILIRUBIN, TOTAL (test code = 0.5 MG/DL 2207) ALKALINE PHOSPHATASE (test 41 U/L code = 2204) AST (test code = 2218) 19 U/L ALT (test code = 2219) 17 U/L [id number] 00:00:00 Test Item Value Reference Range Interpretation Comments TSH, THIRD GENERATION (test code 1.400 UIU/ML = 2821) [id number] 00:00:00 Test Item Value Reference Range Interpretation Comments TSH, THIRD GENERATION (test code 1.400 UIU/ML = 2821) [id number] 00:00:00 Test Item Value Reference Range Interpretation Comments TSH, THIRD GENERATION (test code 1.400 UIU/ML = 2821) [id number] 00:00:00 Test Item Value Reference Range Interpretation Comments PROLACTIN (test code = 2800) 27.5 NG/ML [id number] 00:00:00 Test Item Value Reference Range Interpretation Comments PROLACTIN (test code = 2800) 27.5 NG/ML FSH + LH [id number] 00:00:00 Test Item Value Reference Range Interpretation Comments FOLLICLE STIM HORMONE (test code = 3.2 IU/L 2700) LUTEINIZING HORMONE (test code = 4.8 IU/L 2776) FSH + LH [id number] 00:00:00 Test Item Value Reference Range Interpretation Comments FOLLICLE STIM HORMONE (test code = 3.2 IU/L 2700) LUTEINIZING HORMONE (test code = 4.8 IU/L 2776) DHEA [id number] 00:00:00 Test Item Value Reference Range Interpretation Comments DHEA SULFATE (test code = 4225) 406 UG/DL DHEA [id number] 00:00:00 Test Item Value Reference Range Interpretation Comments DHEA SULFATE (test code = 4225) 406 UG/DL [id number] 00:00:00 Test Item Value Reference Range Interpretation Comments TESTOSTERONE (test code = 2830) 34 NG/DL [id number] 00:00:00 Test Item Value Reference Range Interpretation Comments TESTOSTERONE (test code = 2830) 34 NG/DL [id number] 00:00:00 Test Item Value Reference Range Interpretation Comments PROGESTERONE (test code = 2790) 5.24 NG/ML [id number] 00:00:00 Test Item Value Reference Range Interpretation Comments PROGESTERONE (test code = 2790) 5.24 NG/ML HEMOGLOBIN [id number] 00:00:00 Test Item Value Reference Range Interpretation Comments HEMOGLOBIN A1c (test code = 82729) 5.4 % HEMOGLOBIN [id number] 00:00:00 Test Item Value Reference Range Interpretation Comments HEMOGLOBIN A1c (test code = 65156) 5.4 % HEMOGLOBIN [id number] 00:00:00 Test Item Value Reference Range Interpretation Comments HEMOGLOBIN A1c (test code = 15536) 5.4 % LIPID [id number] 00:00:00 Test Item Value Reference Range Interpretation Comments CHOLESTEROL (test code = 2210) 181 MG/DL TRIGLYCERIDES (test code = 2232) 126 MG/DL HDL CHOLESTEROL (test code = 2220) 52 MG/DL CALC LDL CHOL (test code = 2237) 106 MG/DL RISK RATIO LDL/HDL (test code = 2.04 RATIO 2238) LIPID [id number] 00:00:00 Test Item Value Reference Range Interpretation Comments CHOLESTEROL (test code = 2210) 181 MG/DL TRIGLYCERIDES (test code = 2232) 126 MG/DL HDL CHOLESTEROL (test code = 2220) 52 MG/DL CALC LDL CHOL (test code = 2237) 106 MG/DL RISK RATIO LDL/HDL (test code = 2.04 RATIO 2238) COMPREHENSIVE METABOLIC [id number] 00:00:00 Test Item Value Reference Range Interpretation Comments GLUCOSE (test code = 2217) 90 MG/DL BUN (test code = 2208) 16 MG/DL CREATININE (test code = 2214) 0.67 MG/DL eGFR AMER. (test code 137 ML/MIN/1.73 = 66854) eGFR NON- AMER. (test 118 ML/MIN/1.73 code = 65389) CALC BUN/CREAT (test code = 24 RATIO 2235) SODIUM (test code = 2231) 135 MEQ/L POTASSIUM (test code = 2228) 4.5 MEQ/L CHLORIDE (test code = 2215) 105 MEQ/L CARBON DIOXIDE (test code = 20 MEQ/L 2205) CALCIUM (test code = 2209) 9.5 MG/DL PROTEIN, TOTAL (test code = 7.5 G/DL 2228) ALBUMIN (test code = 2201) 4.4 G/DL CALC GLOBULIN (test code = 3.1 G/DL 2240) CALC A/G RATIO (test code = 1.4 RATIO 2234) BILIRUBIN, TOTAL (test code = 0.5 MG/DL 2206) ALKALINE PHOSPHATASE (test 41 U/L code = 2204) AST (test code = 2218) 19 U/L ALT (test code = 2219) 17 U/L COMPREHENSIVE METABOLIC [id number] 00:00:00 Test Item Value Reference Range Interpretation Comments GLUCOSE (test code = 2217) 90 MG/DL BUN (test code = 2208) 16 MG/DL CREATININE (test code = 2214) 0.67 MG/DL eGFR AMER. (test code 137 ML/MIN/1.73 = 24710) eGFR NON- AMER. (test 118 ML/MIN/1.73 code = 66220) CALC BUN/CREAT (test code = 24 RATIO 2235) SODIUM (test code = 2231) 135 MEQ/L POTASSIUM (test code = 2228) 4.5 MEQ/L CHLORIDE (test code = 2215) 105 MEQ/L CARBON DIOXIDE (test code = 20 MEQ/L 2205) CALCIUM (test code = 2209) 9.5 MG/DL PROTEIN, TOTAL (test code = 7.5 G/DL 2228) ALBUMIN (test code = 2201) 4.4 G/DL CALC GLOBULIN (test code = 3.1 G/DL 2240) CALC A/G RATIO (test code = 1.4 RATIO 2234) BILIRUBIN, TOTAL (test code = 0.5 MG/DL 2206) ALKALINE PHOSPHATASE (test 41 U/L code = 2204) AST (test code = 2218) 19 U/L ALT (test code = 2219) 17 U/L [id number] 00:00:00 Test Item Value Reference Range Interpretation Comments TSH, THIRD GENERATION (test code 1.400 UIU/ML = 2821) [id number] 00:00:00 Test Item Value Reference Range Interpretation Comments TSH, THIRD GENERATION (test code 1.400 UIU/ML = 2821) [id number] 00:00:00 Test Item Value Reference Range Interpretation Comments TSH, THIRD GENERATION (test code 1.400 UIU/ML = 2821) [id number] 00:00:00 Test Item Value Reference Range Interpretation Comments PROLACTIN (test code = 2800) 27.5 NG/ML [id number] 00:00:00 Test Item Value Reference Range Interpretation Comments PROLACTIN (test code = 2800) 27.5 NG/ML FSH + LH [id number] 00:00:00 Test Item Value Reference Range Interpretation Comments FOLLICLE STIM HORMONE (test code = 3.2 IU/L 2700) LUTEINIZING HORMONE (test code = 4.8 IU/L 2776) FSH + LH [id number] 00:00:00 Test Item Value Reference Range Interpretation Comments FOLLICLE STIM HORMONE (test code = 3.2 IU/L 2700) LUTEINIZING HORMONE (test code = 4.8 IU/L 2776) DHEA [id number] 00:00:00 Test Item Value Reference Range Interpretation Comments DHEA SULFATE (test code = 4225) 406 UG/DL DHEA [id number] 00:00:00 Test Item Value Reference Range Interpretation Comments DHEA SULFATE (test code = 4225) 406 UG/DL [id number] 00:00:00 Test Item Value Reference Range Interpretation Comments TESTOSTERONE (test code = 2830) 34 NG/DL [id number] 00:00:00 Test Item Value Reference Range Interpretation Comments TESTOSTERONE (test code = 2830) 34 NG/DL [id number] 00:00:00 Test Item Value Reference Range Interpretation Comments PROGESTERONE (test code = 2790) 5.24 NG/ML [id number] 00:00:00 Test Item Value Reference Range Interpretation Comments PROGESTERONE (test code = 2790) 5.24 NG/ML HEMOGLOBIN [id number] 00:00:00 Test Item Value Reference Range Interpretation Comments HEMOGLOBIN A1c (test code = 33981) 5.4 % HEMOGLOBIN [id number] 00:00:00 Test Item Value Reference Range Interpretation Comments HEMOGLOBIN A1c (test code = 71818) 5.4 % HEMOGLOBIN [id number] 00:00:00 Test Item Value Reference Range Interpretation Comments HEMOGLOBIN A1c (test code = 14782) 5.4 % HEMOGLOBIN [id number] 00:00:00 Test Item Value Reference Range Interpretation Comments HEMOGLOBIN A1c (test code = 28512) 5.4 % HEMOGLOBIN [id number] 00:00:00 Test Item Value Reference Range Interpretation Comments HEMOGLOBIN A1c (test code = 24258) 5.4 % HEMOGLOBIN [id number] 00:00:00 Test Item Value Reference Range Interpretation Comments HEMOGLOBIN A1c (test code = 87611) 5.4 % LIPID [id number] 00:00:00 Test Item Value Reference Range Interpretation Comments CHOLESTEROL (test code = 2210) 181 MG/DL TRIGLYCERIDES (test code = 2232) 126 MG/DL HDL CHOLESTEROL (test code = 2220) 52 MG/DL CALC LDL CHOL (test code = 2237) 106 MG/DL RISK RATIO LDL/HDL (test code = 2.04 RATIO 2238) LIPID [id number] 00:00:00 Test Item Value Reference Range Interpretation Comments CHOLESTEROL (test code = 2210) 181 MG/DL TRIGLYCERIDES (test code = 2232) 126 MG/DL HDL CHOLESTEROL (test code = 2220) 52 MG/DL CALC LDL CHOL (test code = 2237) 106 MG/DL RISK RATIO LDL/HDL (test code = 2.04 RATIO 2238) COMPREHENSIVE METABOLIC [id number] 00:00:00 Test Item Value Reference Range Interpretation Comments GLUCOSE (test code = 2217) 90 MG/DL BUN (test code = 2208) 16 MG/DL CREATININE (test code = 2214) 0.67 MG/DL eGFR AMER. (test code 137 ML/MIN/1.73 = 77045) eGFR NON- AMER. (test 118 ML/MIN/1.73 code = 95476) CALC BUN/CREAT (test code = 24 RATIO 2235) SODIUM (test code = 2231) 135 MEQ/L POTASSIUM (test code = 2228) 4.5 MEQ/L CHLORIDE (test code = 2215) 105 MEQ/L CARBON DIOXIDE (test code = 20 MEQ/L 2205) CALCIUM (test code = 2209) 9.5 MG/DL PROTEIN, TOTAL (test code = 7.5 G/DL 2229) ALBUMIN (test code = 2201) 4.4 G/DL CALC GLOBULIN (test code = 3.1 G/DL 2240) CALC A/G RATIO (test code = 1.4 RATIO 2234) BILIRUBIN, TOTAL (test code = 0.5 MG/DL 2207) ALKALINE PHOSPHATASE (test 41 U/L code = 2204) AST (test code = 2218) 19 U/L ALT (test code = 2219) 17 U/L COMPREHENSIVE METABOLIC [id number] 00:00:00 Test Item Value Reference Range Interpretation Comments GLUCOSE (test code = 2217) 90 MG/DL BUN (test code = 2208) 16 MG/DL CREATININE (test code = 2214) 0.67 MG/DL eGFR AMER. (test code 137 ML/MIN/1.73 = 76307) eGFR NON- AMER. (test 118 ML/MIN/1.73 code = 66313) CALC BUN/CREAT (test code = 24 RATIO 2235) SODIUM (test code = 2231) 135 MEQ/L POTASSIUM (test code = 2228) 4.5 MEQ/L CHLORIDE (test code = 2215) 105 MEQ/L CARBON DIOXIDE (test code = 20 MEQ/L 2206) CALCIUM (test code = 2209) 9.5 MG/DL PROTEIN, TOTAL (test code = 7.5 G/DL 9) ALBUMIN (test code = 2201) 4.4 G/DL CALC GLOBULIN (test code = 3.1 G/DL 2240) CALC A/G RATIO (test code = 1.4 RATIO 2234) BILIRUBIN, TOTAL (test code = 0.5 MG/DL 2207) ALKALINE PHOSPHATASE (test 41 U/L code = 2204) AST (test code = 2218) 19 U/L ALT (test code = 2219) 17 U/L [id number] 00:00:00 Test Item Value Reference Range Interpretation Comments TSH, THIRD GENERATION (test code 1.400 UIU/ML = 2821) [id number] 00:00:00 Test Item Value Reference Range Interpretation Comments TSH, THIRD GENERATION (test code 1.400 UIU/ML = 2821) [id number] 00:00:00 Test Item Value Reference Range Interpretation Comments TSH, THIRD GENERATION (test code 1.400 UIU/ML = 2821) [id number] 00:00:00 Test Item Value Reference Range Interpretation Comments PROLACTIN (test code = 2800) 27.5 NG/ML [id number] 00:00:00 Test Item Value Reference Range Interpretation Comments PROLACTIN (test code = 2800) 27.5 NG/ML FSH + LH [id number] 00:00:00 Test Item Value Reference Range Interpretation Comments FOLLICLE STIM HORMONE (test code = 3.2 IU/L 2700) LUTEINIZING HORMONE (test code = 4.8 IU/L 2776) FSH + LH [id number] 00:00:00 Test Item Value Reference Range Interpretation Comments FOLLICLE STIM HORMONE (test code = 3.2 IU/L 2700) LUTEINIZING HORMONE (test code = 4.8 IU/L 2776) DHEA [id number] 00:00:00 Test Item Value Reference Range Interpretation Comments DHEA SULFATE (test code = 4225) 406 UG/DL DHEA [id number] 00:00:00 Test Item Value Reference Range Interpretation Comments DHEA SULFATE (test code = 4225) 406 UG/DL [id number] 00:00:00 Test Item Value Reference Range Interpretation Comments TESTOSTERONE (test code = 2830) 34 NG/DL [id number] 00:00:00 Test Item Value Reference Range Interpretation Comments TESTOSTERONE (test code = 2830) 34 NG/DL [id number] 00:00:00 Test Item Value Reference Range Interpretation Comments PROGESTERONE (test code = 2790) 5.24 NG/ML [id number] 00:00:00 Test Item Value Reference Range Interpretation Comments PROGESTERONE (test code = 2790) 5.24 NG/ML LIPID [id number] 00:00:00 Test Item Value Reference Range Interpretation Comments CHOLESTEROL (test code = 2210) 181 MG/DL TRIGLYCERIDES (test code = 2232) 126 MG/DL HDL CHOLESTEROL (test code = 2220) 52 MG/DL CALC LDL CHOL (test code = 2237) 106 MG/DL RISK RATIO LDL/HDL (test code = 2.04 RATIO 2238) LIPID [id number] 00:00:00 Test Item Value Reference Range Interpretation Comments CHOLESTEROL (test code = 2210) 181 MG/DL TRIGLYCERIDES (test code = 2232) 126 MG/DL HDL CHOLESTEROL (test code = 2220) 52 MG/DL CALC LDL CHOL (test code = 2237) 106 MG/DL RISK RATIO LDL/HDL (test code = 2.04 RATIO 2238) HEMOGLOBIN [id number] 00:00:00 Test Item Value Reference Range Interpretation Comments HEMOGLOBIN A1c (test code = 22489) 5.4 % HEMOGLOBIN [id number] 00:00:00 Test Item Value Reference Range Interpretation Comments HEMOGLOBIN A1c (test code = 11106) 5.4 % HEMOGLOBIN [id number] 00:00:00 Test Item Value Reference Range Interpretation Comments HEMOGLOBIN A1c (test code = 46992) 5.4 % LIPID [id number] 00:00:00 Test Item Value Reference Range Interpretation Comments CHOLESTEROL (test code = 2210) 181 MG/DL TRIGLYCERIDES (test code = 2232) 126 MG/DL HDL CHOLESTEROL (test code = 2220) 52 MG/DL CALC LDL CHOL (test code = 2237) 106 MG/DL RISK RATIO LDL/HDL (test code = 2.04 RATIO 2238) LIPID [id number] 00:00:00 Test Item Value Reference Range Interpretation Comments CHOLESTEROL (test code = 2210) 181 MG/DL TRIGLYCERIDES (test code = 2232) 126 MG/DL HDL CHOLESTEROL (test code = 2220) 52 MG/DL CALC LDL CHOL (test code = 2237) 106 MG/DL RISK RATIO LDL/HDL (test code = 2.04 RATIO 2238) COMPREHENSIVE METABOLIC [id number] 00:00:00 Test Item Value Reference Range Interpretation Comments GLUCOSE (test code = 2217) 90 MG/DL BUN (test code = 2208) 16 MG/DL CREATININE (test code = 2214) 0.67 MG/DL eGFR AMER. (test code 137 ML/MIN/1.73 = 11925) eGFR NON- AMER. (test 118 ML/MIN/1.73 code = 08465) CALC BUN/CREAT (test code = 24 RATIO 2235) SODIUM (test code = 2231) 135 MEQ/L POTASSIUM (test code = 2228) 4.5 MEQ/L CHLORIDE (test code = 2215) 105 MEQ/L CARBON DIOXIDE (test code = 20 MEQ/L 2205) CALCIUM (test code = 2209) 9.5 MG/DL PROTEIN, TOTAL (test code = 7.5 G/DL 2229) ALBUMIN (test code = 2201) 4.4 G/DL CALC GLOBULIN (test code = 3.1 G/DL 2240) CALC A/G RATIO (test code = 1.4 RATIO 2234) BILIRUBIN, TOTAL (test code = 0.5 MG/DL 2207) ALKALINE PHOSPHATASE (test 41 U/L code = 2204) AST (test code = 2218) 19 U/L ALT (test code = 2219) 17 U/L COMPREHENSIVE METABOLIC [id number] 00:00:00 Test Item Value Reference Range Interpretation Comments GLUCOSE (test code = 2217) 90 MG/DL BUN (test code = 2208) 16 MG/DL CREATININE (test code = 2214) 0.67 MG/DL eGFR AMER. (test code 137 ML/MIN/1.73 = 05899) eGFR NON- AMER. (test 118 ML/MIN/1.73 code = 02174) CALC BUN/CREAT (test code = 24 RATIO 2235) SODIUM (test code = 2231) 135 MEQ/L POTASSIUM (test code = 2228) 4.5 MEQ/L CHLORIDE (test code = 2215) 105 MEQ/L CARBON DIOXIDE (test code = 20 MEQ/L 2205) CALCIUM (test code = 2209) 9.5 MG/DL PROTEIN, TOTAL (test code = 7.5 G/DL 222) ALBUMIN (test code = 2201) 4.4 G/DL CALC GLOBULIN (test code = 3.1 G/DL 2240) CALC A/G RATIO (test code = 1.4 RATIO 2234) BILIRUBIN, TOTAL (test code = 0.5 MG/DL 2207) ALKALINE PHOSPHATASE (test 41 U/L code = 2204) AST (test code = 2218) 19 U/L ALT (test code = 2219) 17 U/L [id number] 00:00:00 Test Item Value Reference Range Interpretation Comments TSH, THIRD GENERATION (test code 1.400 UIU/ML = 2821) [id number] 00:00:00 Test Item Value Reference Range Interpretation Comments TSH, THIRD GENERATION (test code 1.400 UIU/ML = 2821) COMPREHENSIVE METABOLIC [id number] 00:00:00 Test Item Value Reference Range Interpretation Comments GLUCOSE (test code = 2217) 90 MG/DL BUN (test code = 2208) 16 MG/DL CREATININE (test code = 2214) 0.67 MG/DL eGFR AMER. (test code 137 ML/MIN/1.73 = 52475) eGFR NON- AMER. (test 118 ML/MIN/1.73 code = 15250) CALC BUN/CREAT (test code = 24 RATIO 2235) SODIUM (test code = 2231) 135 MEQ/L POTASSIUM (test code = 2228) 4.5 MEQ/L CHLORIDE (test code = 2215) 105 MEQ/L CARBON DIOXIDE (test code = 20 MEQ/L 2205) CALCIUM (test code = 2209) 9.5 MG/DL PROTEIN, TOTAL (test code = 7.5 G/DL 2228) ALBUMIN (test code = 2201) 4.4 G/DL CALC GLOBULIN (test code = 3.1 G/DL 2240) CALC A/G RATIO (test code = 1.4 RATIO 2233) BILIRUBIN, TOTAL (test code = 0.5 MG/DL 2206) ALKALINE PHOSPHATASE (test 41 U/L code = 2204) AST (test code = 2218) 19 U/L ALT (test code = 2219) 17 U/L [id number] 00:00:00 Test Item Value Reference Range Interpretation Comments TSH, THIRD GENERATION (test code 1.400 UIU/ML = 2821) [id number] 00:00:00 Test Item Value Reference Range Interpretation Comments PROLACTIN (test code = 2800) 27.5 NG/ML [id number] 00:00:00 Test Item Value Reference Range Interpretation Comments PROLACTIN (test code = 2800) 27.5 NG/ML FSH + LH [id number] 00:00:00 Test Item Value Reference Range Interpretation Comments FOLLICLE STIM HORMONE (test code = 3.2 IU/L 2700) LUTEINIZING HORMONE (test code = 4.8 IU/L 2776) FSH + LH [id number] 00:00:00 Test Item Value Reference Range Interpretation Comments FOLLICLE STIM HORMONE (test code = 3.2 IU/L 2700) LUTEINIZING HORMONE (test code = 4.8 IU/L 2776) DHEA [id number] 00:00:00 Test Item Value Reference Range Interpretation Comments DHEA SULFATE (test code = 4225) 406 UG/DL DHEA [id number] 00:00:00 Test Item Value Reference Range Interpretation Comments DHEA SULFATE (test code = 4225) 406 UG/DL [id number] 00:00:00 Test Item Value Reference Range Interpretation Comments TESTOSTERONE (test code = 2830) 34 NG/DL [id number] 00:00:00 Test Item Value Reference Range Interpretation Comments TESTOSTERONE (test code = 2830) 34 NG/DL [id number] 00:00:00 Test Item Value Reference Range Interpretation Comments PROGESTERONE (test code = 2790) 5.24 NG/ML [id number] 00:00:00 Test Item Value Reference Range Interpretation Comments PROGESTERONE (test code = 2790) 5.24 NG/ML COMPREHENSIVE METABOLIC [id number] 00:00:00 Test Item Value Reference Range Interpretation Comments GLUCOSE (test code = 2217) 90 MG/DL BUN (test code = 2208) 16 MG/DL CREATININE (test code = 2214) 0.67 MG/DL eGFR AMER. (test code 137 ML/MIN/1.73 = 97104) eGFR NON- AMER. (test 118 ML/MIN/1.73 code = 04001) CALC BUN/CREAT (test code = 24 RATIO 2235) SODIUM (test code = 2231) 135 MEQ/L POTASSIUM (test code = 2228) 4.5 MEQ/L CHLORIDE (test code = 2215) 105 MEQ/L CARBON DIOXIDE (test code = 20 MEQ/L 2205) CALCIUM (test code = 2209) 9.5 MG/DL PROTEIN, TOTAL (test code = 7.5 G/DL 2228) ALBUMIN (test code = 2201) 4.4 G/DL CALC GLOBULIN (test code = 3.1 G/DL 2240) CALC A/G RATIO (test code = 1.4 RATIO 2234) BILIRUBIN, TOTAL (test code = 0.5 MG/DL 2206) ALKALINE PHOSPHATASE (test 41 U/L code = 2204) AST (test code = 2218) 19 U/L ALT (test code = 2219) 17 U/L [id number] 00:00:00 Test Item Value Reference Range Interpretation Comments TSH, THIRD GENERATION (test code 1.400 UIU/ML = 2821) [id number] 00:00:00 Test Item Value Reference Range Interpretation Comments TSH, THIRD GENERATION (test code 1.400 UIU/ML = 2821) [id number] 00:00:00 Test Item Value Reference Range Interpretation Comments TSH, THIRD GENERATION (test code 1.400 UIU/ML = 2821) [id number] 00:00:00 Test Item Value Reference Range Interpretation Comments PROLACTIN (test code = 2800) 27.5 NG/ML [id number] 00:00:00 Test Item Value Reference Range Interpretation Comments PROLACTIN (test code = 2800) 27.5 NG/ML FSH + LH [id number] 00:00:00 Test Item Value Reference Range Interpretation Comments FOLLICLE STIM HORMONE (test code = 3.2 IU/L 2700) LUTEINIZING HORMONE (test code = 4.8 IU/L 2776) FSH + LH [id number] 00:00:00 Test Item Value Reference Range Interpretation Comments FOLLICLE STIM HORMONE (test code = 3.2 IU/L 2700) LUTEINIZING HORMONE (test code = 4.8 IU/L 2776) DHEA [id number] 00:00:00 Test Item Value Reference Range Interpretation Comments DHEA SULFATE (test code = 4225) 406 UG/DL DHEA [id number] 00:00:00 Test Item Value Reference Range Interpretation Comments DHEA SULFATE (test code = 4225) 406 UG/DL VAGINAL PATHOGENS DNA [id number] 00:00:00 Test Item Value Reference Range Interpretation Comments RONNA SPECIES (test code = ) NEGATIVE G. VAGINALIS (test code = 12761) POSITIVE T. VAGINALIS (test code = 74627) NEGATIVE VAGINAL PATHOGENS DNA [id number] 00:00:00 Test Item Value Reference Range Interpretation Comments RONNA SPECIES (test code = 05879) NEGATIVE G. VAGINALIS (test code = 32781) POSITIVE T. VAGINALIS (test code = 08014) NEGATIVE VAGINAL PATHOGENS DNA [id number] 00:00:00 Test Item Value Reference Range Interpretation Comments RONNA SPECIES (test code = 46536) NEGATIVE G. VAGINALIS (test code = 28820) POSITIVE T. VAGINALIS (test code = ) NEGATIVE VAGINAL PATHOGENS DNA [id number] 00:00:00 Test Item Value Reference Range Interpretation Comments RONNA SPECIES (test code = 94942) NEGATIVE G. VAGINALIS (test code = 25224) POSITIVE T. VAGINALIS (test code = 42025) NEGATIVE VAGINAL PATHOGENS DNA [id number] 00:00:00 Test Item Value Reference Range Interpretation Comments RONNA SPECIES (test code = 02215) NEGATIVE G. VAGINALIS (test code = 22246) POSITIVE T. VAGINALIS (test code = 19693) NEGATIVE VAGINAL PATHOGENS DNA [id number] 00:00:00 Test Item Value Reference Range Interpretation Comments RONNA SPECIES (test code = 51081) NEGATIVE G. VAGINALIS (test code = 85983) POSITIVE T. VAGINALIS (test code = 91263) NEGATIVE VAGINAL PATHOGENS DNA [id number] 00:00:00 Test Item Value Reference Range Interpretation Comments RONNA SPECIES (test code = 81522) NEGATIVE G. VAGINALIS (test code = 35641) POSITIVE T. VAGINALIS (test code = 65074) NEGATIVE VAGINAL PATHOGENS DNA [id number] 00:00:00 Test Item Value Reference Range Interpretation Comments RONNA SPECIES (test code = ) NEGATIVE G. VAGINALIS (test code = 20187) POSITIVE T. VAGINALIS (test code = 00439) NEGATIVE VAGINAL PATHOGENS DNA [id number] 00:00:00 Test Item Value Reference Range Interpretation Comments RONNA SPECIES (test code = 15375) NEGATIVE G. VAGINALIS (test code = 84841) POSITIVE T. VAGINALIS (test code = 10229) NEGATIVE VAGINAL PATHOGENS DNA [id number] 00:00:00 Test Item Value Reference Range Interpretation Comments RONNA SPECIES (test code = 97747) NEGATIVE G. VAGINALIS (test code = 28435) POSITIVE T. VAGINALIS (test code = 70421) NEGATIVE VAGINAL PATHOGENS DNA [id number] 00:00:00 Test Item Value Reference Range Interpretation Comments RONNA SPECIES (test code = 25178) NEGATIVE G. VAGINALIS (test code = 04464) POSITIVE T. VAGINALIS (test code = 40498) NEGATIVE VAGINAL PATHOGENS DNA [id number] 00:00:00 Test Item Value Reference Range Interpretation Comments RONNA SPECIES (test code = 04440) NEGATIVE G. VAGINALIS (test code = 43069) POSITIVE T. VAGINALIS (test code = ) NEGATIVE VAGINAL PATHOGENS DNA [id number] 00:00:00 Test Item Value Reference Range Interpretation Comments RONNA SPECIES (test code = ) NEGATIVE G. VAGINALIS (test code = 12959) POSITIVE T. VAGINALIS (test code = 11260) NEGATIVE VAGINAL PATHOGENS DNA [id number] 00:00:00 Test Item Value Reference Range Interpretation Comments RONNA SPECIES (test code = ) NEGATIVE G. VAGINALIS (test code = 74910) POSITIVE T. VAGINALIS (test code = 27880) NEGATIVE VAGINAL PATHOGENS DNA [id number] 00:00:00 Test Item Value Reference Range Interpretation Comments RONNA SPECIES (test code = ) NEGATIVE G. VAGINALIS (test code = 66978) POSITIVE T. VAGINALIS (test code = 98210) NEGATIVE VAGINAL PATHOGENS DNA [id number] 00:00:00 Test Item Value Reference Range Interpretation Comments RONNA SPECIES (test code = ) NEGATIVE G. VAGINALIS (test code = 31370) POSITIVE T. VAGINALIS (test code = 66868) NEGATIVE VAGINAL PATHOGENS DNA [id number] 00:00:00 Test Item Value Reference Range Interpretation Comments RONNA SPECIES (test code = ) NEGATIVE G. VAGINALIS (test code = 57855) POSITIVE T. VAGINALIS (test code = 26799) NEGATIVE VAGINAL PATHOGENS DNA [id number] 00:00:00 Test Item Value Reference Range Interpretation Comments RONNA SPECIES (test code = 84129) NEGATIVE G. VAGINALIS (test code = 23188) POSITIVE T. VAGINALIS (test code = 44018) NEGATIVE VAGINAL PATHOGENS DNA [id number] 00:00:00 Test Item Value Reference Range Interpretation Comments RONNA SPECIES (test code = ) NEGATIVE G. VAGINALIS (test code = 80026) POSITIVE T. VAGINALIS (test code = 40008) NEGATIVE VAGINAL PATHOGENS DNA [id number] 00:00:00 Test Item Value Reference Range Interpretation Comments RONNA SPECIES (test code = 78067) NEGATIVE G. VAGINALIS (test code = 53975) POSITIVE T. VAGINALIS (test code = 65801) NEGATIVE CBC W/AUTO [id number] 00:00:00 Test Item Value Reference Range Interpretation Comments WBC (test code = 1001) 7.9 K/UL RBC (test code = 1002) 4.35 M/UL HEMOGLOBIN (test code = 1003) 13.6 G/DL HEMATOCRIT (test code = 1004) 38.9 % MCV (test code = 1005) 89.4 fL MCH (test code = 1006) 31.3 PG MCHC (test code = 1007) 35.0 G/DL RDW (test code = 1038) 13.1 % NEUTROPHILS (test code = 1008) 59.5 % LYMPHOCYTES (test code = 1010) 33.5 % MONOCYTES (test code = 1011) 5.4 % EOSINOPHILS (test code = 1012) 1.1 % BASOPHILS (test code = 1013) 0.5 % PLATELET COUNT (test code = 1015) 314 K/UL CBC W/AUTO [id number] 00:00:00 Test Item Value Reference Range Interpretation Comments WBC (test code = 1001) 7.9 K/UL RBC (test code = 1002) 4.35 M/UL HEMOGLOBIN (test code = 1003) 13.6 G/DL HEMATOCRIT (test code = 1004) 38.9 % MCV (test code = 1005) 89.4 fL MCH (test code = 1006) 31.3 PG MCHC (test code = 1007) 35.0 G/DL RDW (test code = 1038) 13.1 % NEUTROPHILS (test code = 1008) 59.5 % LYMPHOCYTES (test code = 1010) 33.5 % MONOCYTES (test code = 1011) 5.4 % EOSINOPHILS (test code = 1012) 1.1 % BASOPHILS (test code = 1013) 0.5 % PLATELET COUNT (test code = 1015) 314 K/UL CBC W/AUTO [id number] 00:00:00 Test Item Value Reference Range Interpretation Comments WBC (test code = 1001) 7.9 K/UL RBC (test code = 1002) 4.35 M/UL HEMOGLOBIN (test code = 1003) 13.6 G/DL HEMATOCRIT (test code = 1004) 38.9 % MCV (test code = 1005) 89.4 fL MCH (test code = 1006) 31.3 PG MCHC (test code = 1007) 35.0 G/DL RDW (test code = 1038) 13.1 % NEUTROPHILS (test code = 1008) 59.5 % LYMPHOCYTES (test code = 1010) 33.5 % MONOCYTES (test code = 1011) 5.4 % EOSINOPHILS (test code = 1012) 1.1 % BASOPHILS (test code = 1013) 0.5 % PLATELET COUNT (test code = 1015) 314 K/UL LIPID [id number] 00:00:00 Test Item Value Reference Range Interpretation Comments CHOLESTEROL (test code = 2210) 202 MG/DL TRIGLYCERIDES (test code = 2232) 169 MG/DL HDL CHOLESTEROL (test code = 2220) 62 MG/DL CALC LDL CHOL (test code = 2237) 111 MG/DL RISK RATIO LDL/HDL (test code = 1.79 RATIO 2238) LIPID [id number] 00:00:00 Test Item Value Reference Range Interpretation Comments CHOLESTEROL (test code = 2210) 202 MG/DL TRIGLYCERIDES (test code = 2232) 169 MG/DL HDL CHOLESTEROL (test code = 2220) 62 MG/DL CALC LDL CHOL (test code = 2237) 111 MG/DL RISK RATIO LDL/HDL (test code = 1.79 RATIO 2238) COMPREHENSIVE METABOLIC [id number] 00:00:00 Test Item Value Reference Range Interpretation Comments GLUCOSE (test code = 2217) 88 MG/DL BUN (test code = 2208) 20 MG/DL CREATININE (test code = 2214) 0.98 MG/DL eGFR AMER. (test code 90 ML/MIN/1.73 = 02429) eGFR NON- AMER. (test 77 ML/MIN/1.73 code = 94939) CALC BUN/CREAT (test code = 20 RATIO 2235) SODIUM (test code = 2231) 138 MEQ/L POTASSIUM (test code = 2228) 4.2 MEQ/L CHLORIDE (test code = 2215) 101 MEQ/L CARBON DIOXIDE (test code = 25 MEQ/L 2205) CALCIUM (test code = 2209) 9.6 MG/DL PROTEIN, TOTAL (test code = 7.7 G/DL 2228) ALBUMIN (test code = 220) 4.5 G/DL CALC GLOBULIN (test code = 3.2 G/DL 2239) CALC A/G RATIO (test code = 1.4 RATIO 223) BILIRUBIN, TOTAL (test code = <0.2 MG/DL 2206) ALKALINE PHOSPHATASE (test 49 U/L code = 2204) AST (test code = 2218) 20 U/L ALT (test code = 2219) 13 U/L COMPREHENSIVE METABOLIC [id number] 00:00:00 Test Item Value Reference Range Interpretation Comments GLUCOSE (test code = 2217) 88 MG/DL BUN (test code = 2208) 20 MG/DL CREATININE (test code = 2214) 0.98 MG/DL eGFR AMER. (test code 90 ML/MIN/1.73 = 10757) eGFR NON- AMER. (test 77 ML/MIN/1.73 code = 68592) CALC BUN/CREAT (test code = 20 RATIO 2235) SODIUM (test code = 2231) 138 MEQ/L POTASSIUM (test code = 2228) 4.2 MEQ/L CHLORIDE (test code = 2215) 101 MEQ/L CARBON DIOXIDE (test code = 25 MEQ/L 2205) CALCIUM (test code = 2209) 9.6 MG/DL PROTEIN, TOTAL (test code = 7.7 G/DL 2228) ALBUMIN (test code = 2201) 4.5 G/DL CALC GLOBULIN (test code = 3.2 G/DL 2240) CALC A/G RATIO (test code = 1.4 RATIO 4) BILIRUBIN, TOTAL (test code = <0.2 MG/DL 2206) ALKALINE PHOSPHATASE (test 49 U/L code = 2204) AST (test code = 2218) 20 U/L ALT (test code = 2219) 13 U/L [id number] 00:00:00 Test Item Value Reference Range Interpretation Comments TSH, THIRD GENERATION (test code 0.587 UIU/ML = 2821) [id number] 00:00:00 Test Item Value Reference Range Interpretation Comments TSH, THIRD GENERATION (test code 0.587 UIU/ML = 2821) [id number] 00:00:00 Test Item Value Reference Range Interpretation Comments TSH, THIRD GENERATION (test code 0.587 UIU/ML = 2821) CBC W/AUTO [id number] 00:00:00 Test Item Value Reference Range Interpretation Comments WBC (test code = 1001) 7.9 K/UL RBC (test code = 1002) 4.35 M/UL HEMOGLOBIN (test code = 1003) 13.6 G/DL HEMATOCRIT (test code = 1004) 38.9 % MCV (test code = 1005) 89.4 fL MCH (test code = 1006) 31.3 PG MCHC (test code = 1007) 35.0 G/DL RDW (test code = 1038) 13.1 % NEUTROPHILS (test code = 1008) 59.5 % LYMPHOCYTES (test code = 1010) 33.5 % MONOCYTES (test code = 1011) 5.4 % EOSINOPHILS (test code = 1012) 1.1 % BASOPHILS (test code = 1013) 0.5 % PLATELET COUNT (test code = 1015) 314 K/UL CBC W/AUTO [id number] 00:00:00 Test Item Value Reference Range Interpretation Comments WBC (test code = 1001) 7.9 K/UL RBC (test code = 1002) 4.35 M/UL HEMOGLOBIN (test code = 1003) 13.6 G/DL HEMATOCRIT (test code = 1004) 38.9 % MCV (test code = 1005) 89.4 fL MCH (test code = 1006) 31.3 PG MCHC (test code = 1007) 35.0 G/DL RDW (test code = 1038) 13.1 % NEUTROPHILS (test code = 1008) 59.5 % LYMPHOCYTES (test code = 1010) 33.5 % MONOCYTES (test code = 1011) 5.4 % EOSINOPHILS (test code = 1012) 1.1 % BASOPHILS (test code = 1013) 0.5 % PLATELET COUNT (test code = 1015) 314 K/UL CBC W/AUTO [id number] 00:00:00 Test Item Value Reference Range Interpretation Comments WBC (test code = 1001) 7.9 K/UL RBC (test code = 1002) 4.35 M/UL HEMOGLOBIN (test code = 1003) 13.6 G/DL HEMATOCRIT (test code = 1004) 38.9 % MCV (test code = 1005) 89.4 fL MCH (test code = 1006) 31.3 PG MCHC (test code = 1007) 35.0 G/DL RDW (test code = 1038) 13.1 % NEUTROPHILS (test code = 1008) 59.5 % LYMPHOCYTES (test code = 1010) 33.5 % MONOCYTES (test code = 1011) 5.4 % EOSINOPHILS (test code = 1012) 1.1 % BASOPHILS (test code = 1013) 0.5 % PLATELET COUNT (test code = 1015) 314 K/UL LIPID [id number] 00:00:00 Test Item Value Reference Range Interpretation Comments CHOLESTEROL (test code = 2210) 202 MG/DL TRIGLYCERIDES (test code = 2232) 169 MG/DL HDL CHOLESTEROL (test code = 2220) 62 MG/DL CALC LDL CHOL (test code = 2237) 111 MG/DL RISK RATIO LDL/HDL (test code = 1.79 RATIO 2238) LIPID [id number] 00:00:00 Test Item Value Reference Range Interpretation Comments CHOLESTEROL (test code = 2210) 202 MG/DL TRIGLYCERIDES (test code = 2232) 169 MG/DL HDL CHOLESTEROL (test code = 2220) 62 MG/DL CALC LDL CHOL (test code = 2237) 111 MG/DL RISK RATIO LDL/HDL (test code = 1.79 RATIO 2238) COMPREHENSIVE METABOLIC [id number] 00:00:00 Test Item Value Reference Range Interpretation Comments GLUCOSE (test code = 2217) 88 MG/DL BUN (test code = 2208) 20 MG/DL CREATININE (test code = 2214) 0.98 MG/DL eGFR AMER. (test code 90 ML/MIN/1.73 = 64357) eGFR NON- AMER. (test 77 ML/MIN/1.73 code = 94238) CALC BUN/CREAT (test code = 20 RATIO 2235) SODIUM (test code = 2231) 138 MEQ/L POTASSIUM (test code = 2228) 4.2 MEQ/L CHLORIDE (test code = 2215) 101 MEQ/L CARBON DIOXIDE (test code = 25 MEQ/L 2205) CALCIUM (test code = 2209) 9.6 MG/DL PROTEIN, TOTAL (test code = 7.7 G/DL 2228) ALBUMIN (test code = 2201) 4.5 G/DL CALC GLOBULIN (test code = 3.2 G/DL 2240) CALC A/G RATIO (test code = 1.4 RATIO 2234) BILIRUBIN, TOTAL (test code = <0.2 MG/DL 2206) ALKALINE PHOSPHATASE (test 49 U/L code = 2204) AST (test code = 2218) 20 U/L ALT (test code = 2219) 13 U/L COMPREHENSIVE METABOLIC [id number] 00:00:00 Test Item Value Reference Range Interpretation Comments GLUCOSE (test code = 2217) 88 MG/DL BUN (test code = 2208) 20 MG/DL CREATININE (test code = 2214) 0.98 MG/DL eGFR AMER. (test code 90 ML/MIN/1.73 = 86290) eGFR NON- AMER. (test 77 ML/MIN/1.73 code = 77633) CALC BUN/CREAT (test code = 20 RATIO 2235) SODIUM (test code = 2231) 138 MEQ/L POTASSIUM (test code = 2228) 4.2 MEQ/L CHLORIDE (test code = 2215) 101 MEQ/L CARBON DIOXIDE (test code = 25 MEQ/L 2205) CALCIUM (test code = 2209) 9.6 MG/DL PROTEIN, TOTAL (test code = 7.7 G/DL 2228) ALBUMIN (test code = 2201) 4.5 G/DL CALC GLOBULIN (test code = 3.2 G/DL 2239) CALC A/G RATIO (test code = 1.4 RATIO 2233) BILIRUBIN, TOTAL (test code = <0.2 MG/DL 2206) ALKALINE PHOSPHATASE (test 49 U/L code = 2204) AST (test code = 2218) 20 U/L ALT (test code = 2219) 13 U/L [id number] 00:00:00 Test Item Value Reference Range Interpretation Comments TSH, THIRD GENERATION (test code 0.587 UIU/ML = 2821) [id number] 00:00:00 Test Item Value Reference Range Interpretation Comments TSH, THIRD GENERATION (test code 0.587 UIU/ML = 2821) [id number] 00:00:00 Test Item Value Reference Range Interpretation Comments TSH, THIRD GENERATION (test code 0.587 UIU/ML = 2821) CBC W/AUTO [id number] 00:00:00 Test Item Value Reference Range Interpretation Comments WBC (test code = 1001) 7.9 K/UL RBC (test code = 1002) 4.35 M/UL HEMOGLOBIN (test code = 1003) 13.6 G/DL HEMATOCRIT (test code = 1004) 38.9 % MCV (test code = 1005) 89.4 fL MCH (test code = 1006) 31.3 PG MCHC (test code = 1007) 35.0 G/DL RDW (test code = 1038) 13.1 % NEUTROPHILS (test code = 1008) 59.5 % LYMPHOCYTES (test code = 1010) 33.5 % MONOCYTES (test code = 1011) 5.4 % EOSINOPHILS (test code = 1012) 1.1 % BASOPHILS (test code = 1013) 0.5 % PLATELET COUNT (test code = 1015) 314 K/UL CBC W/AUTO [id number] 00:00:00 Test Item Value Reference Range Interpretation Comments WBC (test code = 1001) 7.9 K/UL RBC (test code = 1002) 4.35 M/UL HEMOGLOBIN (test code = 1003) 13.6 G/DL HEMATOCRIT (test code = 1004) 38.9 % MCV (test code = 1005) 89.4 fL MCH (test code = 1006) 31.3 PG MCHC (test code = 1007) 35.0 G/DL RDW (test code = 1038) 13.1 % NEUTROPHILS (test code = 1008) 59.5 % LYMPHOCYTES (test code = 1010) 33.5 % MONOCYTES (test code = 1011) 5.4 % EOSINOPHILS (test code = 1012) 1.1 % BASOPHILS (test code = 1013) 0.5 % PLATELET COUNT (test code = 1015) 314 K/UL CBC W/AUTO [id number] 00:00:00 Test Item Value Reference Range Interpretation Comments WBC (test code = 1001) 7.9 K/UL RBC (test code = 1002) 4.35 M/UL HEMOGLOBIN (test code = 1003) 13.6 G/DL HEMATOCRIT (test code = 1004) 38.9 % MCV (test code = 1005) 89.4 fL MCH (test code = 1006) 31.3 PG MCHC (test code = 1007) 35.0 G/DL RDW (test code = 1038) 13.1 % NEUTROPHILS (test code = 1008) 59.5 % LYMPHOCYTES (test code = 1010) 33.5 % MONOCYTES (test code = 1011) 5.4 % EOSINOPHILS (test code = 1012) 1.1 % BASOPHILS (test code = 1013) 0.5 % PLATELET COUNT (test code = 1015) 314 K/UL CBC W/AUTO [id number] 00:00:00 Test Item Value Reference Range Interpretation Comments WBC (test code = 1001) 7.9 K/UL RBC (test code = 1002) 4.35 M/UL HEMOGLOBIN (test code = 1003) 13.6 G/DL HEMATOCRIT (test code = 1004) 38.9 % MCV (test code = 1005) 89.4 fL MCH (test code = 1006) 31.3 PG MCHC (test code = 1007) 35.0 G/DL RDW (test code = 1038) 13.1 % NEUTROPHILS (test code = 1008) 59.5 % LYMPHOCYTES (test code = 1010) 33.5 % MONOCYTES (test code = 1011) 5.4 % EOSINOPHILS (test code = 1012) 1.1 % BASOPHILS (test code = 1013) 0.5 % PLATELET COUNT (test code = 1015) 314 K/UL LIPID [id number] 00:00:00 Test Item Value Reference Range Interpretation Comments CHOLESTEROL (test code = 2210) 202 MG/DL TRIGLYCERIDES (test code = 2232) 169 MG/DL HDL CHOLESTEROL (test code = 2220) 62 MG/DL CALC LDL CHOL (test code = 2237) 111 MG/DL RISK RATIO LDL/HDL (test code = 1.79 RATIO 2238) LIPID [id number] 00:00:00 Test Item Value Reference Range Interpretation Comments CHOLESTEROL (test code = 2210) 202 MG/DL TRIGLYCERIDES (test code = 2232) 169 MG/DL HDL CHOLESTEROL (test code = 2220) 62 MG/DL CALC LDL CHOL (test code = 2237) 111 MG/DL RISK RATIO LDL/HDL (test code = 1.79 RATIO 2238) CBC W/AUTO [id number] 00:00:00 Test Item Value Reference Range Interpretation Comments WBC (test code = 1001) 7.9 K/UL RBC (test code = 1002) 4.35 M/UL HEMOGLOBIN (test code = 1003) 13.6 G/DL HEMATOCRIT (test code = 1004) 38.9 % MCV (test code = 1005) 89.4 fL MCH (test code = 1006) 31.3 PG MCHC (test code = 1007) 35.0 G/DL RDW (test code = 1038) 13.1 % NEUTROPHILS (test code = 1008) 59.5 % LYMPHOCYTES (test code = 1010) 33.5 % MONOCYTES (test code = 1011) 5.4 % EOSINOPHILS (test code = 1012) 1.1 % BASOPHILS (test code = 1013) 0.5 % PLATELET COUNT (test code = 1015) 314 K/UL COMPREHENSIVE METABOLIC [id number] 00:00:00 Test Item Value Reference Range Interpretation Comments GLUCOSE (test code = 2217) 88 MG/DL BUN (test code = 2208) 20 MG/DL CREATININE (test code = 2214) 0.98 MG/DL eGFR AMER. (test code 90 ML/MIN/1.73 = 18806) eGFR NON- AMER. (test 77 ML/MIN/1.73 code = 21814) CALC BUN/CREAT (test code = 20 RATIO 2235) SODIUM (test code = 2231) 138 MEQ/L POTASSIUM (test code = 2228) 4.2 MEQ/L CHLORIDE (test code = 2215) 101 MEQ/L CARBON DIOXIDE (test code = 25 MEQ/L 2205) CALCIUM (test code = 2209) 9.6 MG/DL PROTEIN, TOTAL (test code = 7.7 G/DL 222) ALBUMIN (test code = 2201) 4.5 G/DL CALC GLOBULIN (test code = 3.2 G/DL 2240) CALC A/G RATIO (test code = 1.4 RATIO 2234) BILIRUBIN, TOTAL (test code = <0.2 MG/DL 220) ALKALINE PHOSPHATASE (test 49 U/L code = 2204) AST (test code = 2218) 20 U/L ALT (test code = 2219) 13 U/L COMPREHENSIVE METABOLIC [id number] 00:00:00 Test Item Value Reference Range Interpretation Comments GLUCOSE (test code = 2217) 88 MG/DL BUN (test code = 2208) 20 MG/DL CREATININE (test code = 2214) 0.98 MG/DL eGFR AMER. (test code 90 ML/MIN/1.73 = 03797) eGFR NON- AMER. (test 77 ML/MIN/1.73 code = 95366) CALC BUN/CREAT (test code = 20 RATIO 2235) SODIUM (test code = 2231) 138 MEQ/L POTASSIUM (test code = 2228) 4.2 MEQ/L CHLORIDE (test code = 2215) 101 MEQ/L CARBON DIOXIDE (test code = 25 MEQ/L 2205) CALCIUM (test code = 2209) 9.6 MG/DL PROTEIN, TOTAL (test code = 7.7 G/DL 2228) ALBUMIN (test code = 2201) 4.5 G/DL CALC GLOBULIN (test code = 3.2 G/DL 2239) CALC A/G RATIO (test code = 1.4 RATIO 2233) BILIRUBIN, TOTAL (test code = <0.2 MG/DL 2206) ALKALINE PHOSPHATASE (test 49 U/L code = 220) AST (test code = 2218) 20 U/L ALT (test code = 2219) 13 U/L [id number] 00:00:00 Test Item Value Reference Range Interpretation Comments TSH, THIRD GENERATION (test code 0.587 UIU/ML = 2821) [id number] 00:00:00 Test Item Value Reference Range Interpretation Comments TSH, THIRD GENERATION (test code 0.587 UIU/ML = 2821) [id number] 00:00:00 Test Item Value Reference Range Interpretation Comments TSH, THIRD GENERATION (test code 0.587 UIU/ML = 2821) CBC W/AUTO [id number] 00:00:00 Test Item Value Reference Range Interpretation Comments WBC (test code = 1001) 7.9 K/UL RBC (test code = 1002) 4.35 M/UL HEMOGLOBIN (test code = 1003) 13.6 G/DL HEMATOCRIT (test code = 1004) 38.9 % MCV (test code = 1005) 89.4 fL MCH (test code = 1006) 31.3 PG MCHC (test code = 1007) 35.0 G/DL RDW (test code = 1038) 13.1 % NEUTROPHILS (test code = 1008) 59.5 % LYMPHOCYTES (test code = 1010) 33.5 % MONOCYTES (test code = 1011) 5.4 % EOSINOPHILS (test code = 1012) 1.1 % BASOPHILS (test code = 1013) 0.5 % PLATELET COUNT (test code = 1015) 314 K/UL LIPID [id number] 00:00:00 Test Item Value Reference Range Interpretation Comments CHOLESTEROL (test code = 2210) 202 MG/DL TRIGLYCERIDES (test code = 2232) 169 MG/DL HDL CHOLESTEROL (test code = 2220) 62 MG/DL CALC LDL CHOL (test code = 2237) 111 MG/DL RISK RATIO LDL/HDL (test code = 1.79 RATIO 2238) LIPID [id number] 00:00:00 Test Item Value Reference Range Interpretation Comments CHOLESTEROL (test code = 2210) 202 MG/DL TRIGLYCERIDES (test code = 2232) 169 MG/DL HDL CHOLESTEROL (test code = 2220) 62 MG/DL CALC LDL CHOL (test code = 2237) 111 MG/DL RISK RATIO LDL/HDL (test code = 1.79 RATIO 2238) CBC W/AUTO [id number] 00:00:00 Test Item Value Reference Range Interpretation Comments WBC (test code = 1001) 7.9 K/UL RBC (test code = 1002) 4.35 M/UL HEMOGLOBIN (test code = 1003) 13.6 G/DL HEMATOCRIT (test code = 1004) 38.9 % MCV (test code = 1005) 89.4 fL MCH (test code = 1006) 31.3 PG MCHC (test code = 1007) 35.0 G/DL RDW (test code = 1038) 13.1 % NEUTROPHILS (test code = 1008) 59.5 % LYMPHOCYTES (test code = 1010) 33.5 % MONOCYTES (test code = 1011) 5.4 % EOSINOPHILS (test code = 1012) 1.1 % BASOPHILS (test code = 1013) 0.5 % PLATELET COUNT (test code = 1015) 314 K/UL CBC W/AUTO [id number] 00:00:00 Test Item Value Reference Range Interpretation Comments WBC (test code = 1001) 7.9 K/UL RBC (test code = 1002) 4.35 M/UL HEMOGLOBIN (test code = 1003) 13.6 G/DL HEMATOCRIT (test code = 1004) 38.9 % MCV (test code = 1005) 89.4 fL MCH (test code = 1006) 31.3 PG MCHC (test code = 1007) 35.0 G/DL RDW (test code = 1038) 13.1 % NEUTROPHILS (test code = 1008) 59.5 % LYMPHOCYTES (test code = 1010) 33.5 % MONOCYTES (test code = 1011) 5.4 % EOSINOPHILS (test code = 1012) 1.1 % BASOPHILS (test code = 1013) 0.5 % PLATELET COUNT (test code = 1015) 314 K/UL CBC W/AUTO [id number] 00:00:00 Test Item Value Reference Range Interpretation Comments WBC (test code = 1001) 7.9 K/UL RBC (test code = 1002) 4.35 M/UL HEMOGLOBIN (test code = 1003) 13.6 G/DL HEMATOCRIT (test code = 1004) 38.9 % MCV (test code = 1005) 89.4 fL MCH (test code = 1006) 31.3 PG MCHC (test code = 1007) 35.0 G/DL RDW (test code = 1038) 13.1 % NEUTROPHILS (test code = 1008) 59.5 % LYMPHOCYTES (test code = 1010) 33.5 % MONOCYTES (test code = 1011) 5.4 % EOSINOPHILS (test code = 1012) 1.1 % BASOPHILS (test code = 1013) 0.5 % PLATELET COUNT (test code = 1015) 314 K/UL LIPID [id number] 00:00:00 Test Item Value Reference Range Interpretation Comments CHOLESTEROL (test code = 2210) 202 MG/DL TRIGLYCERIDES (test code = 2232) 169 MG/DL HDL CHOLESTEROL (test code = 2220) 62 MG/DL CALC LDL CHOL (test code = 2237) 111 MG/DL RISK RATIO LDL/HDL (test code = 1.79 RATIO 2238) LIPID [id number] 00:00:00 Test Item Value Reference Range Interpretation Comments CHOLESTEROL (test code = 2210) 202 MG/DL TRIGLYCERIDES (test code = 2232) 169 MG/DL HDL CHOLESTEROL (test code = 2220) 62 MG/DL CALC LDL CHOL (test code = 2237) 111 MG/DL RISK RATIO LDL/HDL (test code = 1.79 RATIO 2238) COMPREHENSIVE METABOLIC [id number] 00:00:00 Test Item Value Reference Range Interpretation Comments GLUCOSE (test code = 2217) 88 MG/DL BUN (test code = 2208) 20 MG/DL CREATININE (test code = 2214) 0.98 MG/DL eGFR AMER. (test code 90 ML/MIN/1.73 = 10035) eGFR NON- AMER. (test 77 ML/MIN/1.73 code = 63304) CALC BUN/CREAT (test code = 20 RATIO 2235) SODIUM (test code = 2231) 138 MEQ/L POTASSIUM (test code = 2228) 4.2 MEQ/L CHLORIDE (test code = 2215) 101 MEQ/L CARBON DIOXIDE (test code = 25 MEQ/L 2206) CALCIUM (test code = 2209) 9.6 MG/DL PROTEIN, TOTAL (test code = 7.7 G/DL 2228) ALBUMIN (test code = 2201) 4.5 G/DL CALC GLOBULIN (test code = 3.2 G/DL 2240) CALC A/G RATIO (test code = 1.4 RATIO 2234) BILIRUBIN, TOTAL (test code = <0.2 MG/DL 2206) ALKALINE PHOSPHATASE (test 49 U/L code = 2203) AST (test code = 2218) 20 U/L ALT (test code = 2219) 13 U/L COMPREHENSIVE METABOLIC [id number] 00:00:00 Test Item Value Reference Range Interpretation Comments GLUCOSE (test code = 2217) 88 MG/DL BUN (test code = 2208) 20 MG/DL CREATININE (test code = 2214) 0.98 MG/DL eGFR AMER. (test code 90 ML/MIN/1.73 = 80552) eGFR NON- AMER. (test 77 ML/MIN/1.73 code = 83640) CALC BUN/CREAT (test code = 20 RATIO 2235) SODIUM (test code = 2231) 138 MEQ/L POTASSIUM (test code = 2228) 4.2 MEQ/L CHLORIDE (test code = 2215) 101 MEQ/L CARBON DIOXIDE (test code = 25 MEQ/L 2206) CALCIUM (test code = 2209) 9.6 MG/DL PROTEIN, TOTAL (test code = 7.7 G/DL 2228) ALBUMIN (test code = 2201) 4.5 G/DL CALC GLOBULIN (test code = 3.2 G/DL 2240) CALC A/G RATIO (test code = 1.4 RATIO 2234) BILIRUBIN, TOTAL (test code = <0.2 MG/DL 2206) ALKALINE PHOSPHATASE (test 49 U/L code = 2204) AST (test code = 2218) 20 U/L ALT (test code = 2219) 13 U/L COMPREHENSIVE METABOLIC [id number] 00:00:00 Test Item Value Reference Range Interpretation Comments GLUCOSE (test code = 2217) 88 MG/DL BUN (test code = 2208) 20 MG/DL CREATININE (test code = 2214) 0.98 MG/DL eGFR AMER. (test code 90 ML/MIN/1.73 = 14881) eGFR NON- AMER. (test 77 ML/MIN/1.73 code = 23064) CALC BUN/CREAT (test code = 20 RATIO 2235) SODIUM (test code = 2231) 138 MEQ/L POTASSIUM (test code = 2228) 4.2 MEQ/L CHLORIDE (test code = 2215) 101 MEQ/L CARBON DIOXIDE (test code = 25 MEQ/L 220) CALCIUM (test code = 2209) 9.6 MG/DL PROTEIN, TOTAL (test code = 7.7 G/DL 222) ALBUMIN (test code = 2201) 4.5 G/DL CALC GLOBULIN (test code = 3.2 G/DL 2240) CALC A/G RATIO (test code = 1.4 RATIO 2234) BILIRUBIN, TOTAL (test code = <0.2 MG/DL 2206) ALKALINE PHOSPHATASE (test 49 U/L code = 2204) AST (test code = 2218) 20 U/L ALT (test code = 2219) 13 U/L [id number] 00:00:00 Test Item Value Reference Range Interpretation Comments TSH, THIRD GENERATION (test code 0.587 UIU/ML = 2821) [id number] 00:00:00 Test Item Value Reference Range Interpretation Comments TSH, THIRD GENERATION (test code 0.587 UIU/ML = 2821) [id number] 00:00:00 Test Item Value Reference Range Interpretation Comments TSH, THIRD GENERATION (test code 0.587 UIU/ML = 2821) COMPREHENSIVE METABOLIC [id number] 00:00:00 Test Item Value Reference Range Interpretation Comments GLUCOSE (test code = 2217) 88 MG/DL BUN (test code = 2208) 20 MG/DL CREATININE (test code = 2214) 0.98 MG/DL eGFR AMER. (test code 90 ML/MIN/1.73 = 39282) eGFR NON- AMER. (test 77 ML/MIN/1.73 code = 32077) CALC BUN/CREAT (test code = 20 RATIO 2234) SODIUM (test code = 2231) 138 MEQ/L POTASSIUM (test code = 2228) 4.2 MEQ/L CHLORIDE (test code = 2215) 101 MEQ/L CARBON DIOXIDE (test code = 25 MEQ/L 2205) CALCIUM (test code = 2209) 9.6 MG/DL PROTEIN, TOTAL (test code = 7.7 G/DL 2228) ALBUMIN (test code = 220) 4.5 G/DL CALC GLOBULIN (test code = 3.2 G/DL 2239) CALC A/G RATIO (test code = 1.4 RATIO 2233) BILIRUBIN, TOTAL (test code = <0.2 MG/DL 2206) ALKALINE PHOSPHATASE (test 49 U/L code = 220) AST (test code = 2218) 20 U/L ALT (test code = 2219) 13 U/L [id number] 00:00:00 Test Item Value Reference Range Interpretation Comments TSH, THIRD GENERATION (test code 0.587 UIU/ML = 2821) [id number] 00:00:00 Test Item Value Reference Range Interpretation Comments TSH, THIRD GENERATION (test code 0.587 UIU/ML = 2821) [id number] 00:00:00 Test Item Value Reference Range Interpretation Comments TSH, THIRD GENERATION (test code 0.587 UIU/ML = 2821) PAP TEST, THINPREP, [id number] 00:00:00 Test Item Value Reference Range Interpretation Comments SOURCE: (test code = Endocervical 8001) SLIDES: (test code = 1 8011) LMP: (test code = 10/2020 8021) SPECIMEN ADEQUACY: (NOTE) (test code = 15692) INTERPRETATION: (test NILM/NO EPITH. code = 08055) ABNORMALITY;SEE BELOW OTHER COMMENTS: (test (NOTE) code = 8081) ENERGY CONSERVATION SPECIALIST: JUDSON Fonseca (test code = 8101) (ASCP) LOCATION: (test code (NOTE) = 13409) CPT: (test code = (NOTE) 8140) PAP TEST, THINPREP, [id number] 00:00:00 Test Item Value Reference Range Interpretation Comments SOURCE: (test code = Endocervical 800) SLIDES: (test code = 1 8011) LMP: (test code = 10/2020) SPECIMEN ADEQUACY: (NOTE) (test code = 29167) INTERPRETATION: (test NILM/NO EPITH. code = 59049) ABNORMALITY;SEE BELOW OTHER COMMENTS: (test (NOTE) code = 8081) ENERGY CONSERVATION SPECIALIST: JUDSON Fonseca (test code = 8101) (ASCP) LOCATION: (test code (NOTE) = 97454) CPT: (test code = (NOTE) 8140) PAP TEST, THINPREP, [id number] 00:00:00 Test Item Value Reference Range Interpretation Comments SOURCE: (test code = Endocervical 8000) SLIDES: (test code = 1 801) LMP: (test code = 10/2020) SPECIMEN ADEQUACY: (NOTE) (test code = 62999) INTERPRETATION: (test NILM/NO EPITH. code = 01680) ABNORMALITY;SEE BELOW OTHER COMMENTS: (test (NOTE) code = 8081) ENERGY CONSERVATION SPECIALIST: JUDSON Fonseca (test code = 8101) (ASCP) LOCATION: (test code (NOTE) = 16112) CPT: (test code = (NOTE) 8140) PAP TEST, THINPREP, [id number] 00:00:00 Test Item Value Reference Range Interpretation Comments SOURCE: (test code = Endocervical 8000) SLIDES: (test code = 8010) LMP: (test code = 10/2020) SPECIMEN ADEQUACY: (NOTE) (test code = 06737) INTERPRETATION: (test NILM/NO EPITH. code = 61670) ABNORMALITY;SEE BELOW OTHER COMMENTS: (test (NOTE) code = 8081) ENERGY CONSERVATION SPECIALIST: JUDSON Fonseca (test code = 8101) (ASCP) LOCATION: (test code (NOTE) = 05457) CPT: (test code = (NOTE) 8140) PAP TEST, THINPREP, [id number] 00:00:00 Test Item Value Reference Range Interpretation Comments SOURCE: (test code = Endocervical 800) SLIDES: (test code = 1 8011) LMP: (test code = 10/2020) SPECIMEN ADEQUACY: (NOTE) (test code = 01462) INTERPRETATION: (test NILM/NO EPITH. code = 72191) ABNORMALITY;SEE BELOW OTHER COMMENTS: (test (NOTE) code = 8081) ENERGY CONSERVATION SPECIALIST: JUDSON Fonseca (test code = 8101) (ASCP) LOCATION: (test code (NOTE) = 94789) CPT: (test code = (NOTE) 8140) PAP TEST, THINPREP, [id number] 00:00:00 Test Item Value Reference Range Interpretation Comments SOURCE: (test code = Endocervical 8001) SLIDES: (test code = 1 8011) LMP: (test code = 10/2020) SPECIMEN ADEQUACY: (NOTE) (test code = 62764) INTERPRETATION: (test NILM/NO EPITH. code = 80353) ABNORMALITY;SEE BELOW OTHER COMMENTS: (test (NOTE) code = 8081) ENERGY CONSERVATION SPECIALIST: JUDSON Fonseca (test code = 8101) (ASCP) LOCATION: (test code (NOTE) = 82325) CPT: (test code = (NOTE) 8140) PAP TEST, THINPREP, [id number] 00:00:00 Test Item Value Reference Range Interpretation Comments SOURCE: (test code = Endocervical 8001) SLIDES: (test code = 1 8011) LMP: (test code = 10/2020) SPECIMEN ADEQUACY: (NOTE) (test code = 00835) INTERPRETATION: (test NILM/NO EPITH. code = 42049) ABNORMALITY;SEE BELOW OTHER COMMENTS: (test (NOTE) code = 8081) ENERGY CONSERVATION SPECIALIST: JUDSON Fonseca (test code = 8101) (ASCP) LOCATION: (test code (NOTE) = 35983) CPT: (test code = (NOTE) 8140) PAP TEST, THINPREP, [id number] 00:00:00 Test Item Value Reference Range Interpretation Comments SOURCE: (test code = Endocervical 8001) SLIDES: (test code = 1 8011) LMP: (test code = 10/2020) SPECIMEN ADEQUACY: (NOTE) (test code = 87706) INTERPRETATION: (test NILM/NO EPITH. code = 33550) ABNORMALITY;SEE BELOW OTHER COMMENTS: (test (NOTE) code = 8081) ENERGY CONSERVATION SPECIALIST: JUDSON Fonseca (test code = 8101) (ASCP) LOCATION: (test code (NOTE) = 50661) CPT: (test code = (NOTE) 8140) PAP TEST, THINPREP, [id number] 00:00:00 Test Item Value Reference Range Interpretation Comments SOURCE: (test code = Endocervical 8001) SLIDES: (test code = 1 8011) LMP: (test code = 10/2020 8021) SPECIMEN ADEQUACY: (NOTE) (test code = 09468) INTERPRETATION: (test NILM/NO EPITH. code = 57903) ABNORMALITY;SEE BELOW OTHER COMMENTS: (test (NOTE) code = 8081) ENERGY CONSERVATION SPECIALIST: JUDSON Fonseca (test code = 8101) (ASCP) LOCATION: (test code (NOTE) = 19308) CPT: (test code = (NOTE) 8140) PAP TEST, THINPREP, [id number] 00:00:00 Test Item Value Reference Range Interpretation Comments SOURCE: (test code = Endocervical 8001) SLIDES: (test code = 1 8011) LMP: (test code = 10/2020 8021) SPECIMEN ADEQUACY: (NOTE) (test code = 39153) INTERPRETATION: (test NILM/NO EPITH. code = 81648) ABNORMALITY;SEE BELOW OTHER COMMENTS: (test (NOTE) code = 8081) ENERGY CONSERVATION SPECIALIST: JUDSON Fonseca (test code = 8101) (ASCP) LOCATION: (test code (NOTE) = 09931) CPT: (test code = (NOTE) 8140) GC AND CHLAMYDIA AMPLIFIED, [id number] 00:00:00 Test Item Value Reference Range Interpretation Comments GONORRHEA, TMA (test code = 65991) NEGATIVE CHLAMYDIA, TMA (test code = 37532) NEGATIVE VAGINAL PATHOGENS DNA [id number] 00:00:00 Test Item Value Reference Range Interpretation Comments RONNA SPECIES (test code = 96845) NEGATIVE G. VAGINALIS (test code = ) POSITIVE T. VAGINALIS (test code = ) NEGATIVE GC AND CHLAMYDIA AMPLIFIED, [id number] 00:00:00 Test Item Value Reference Range Interpretation Comments GONORRHEA, TMA (test code = 77311) NEGATIVE CHLAMYDIA, TMA (test code = 58359) NEGATIVE VAGINAL PATHOGENS DNA [id number] 00:00:00 Test Item Value Reference Range Interpretation Comments RONNA SPECIES (test code = ) NEGATIVE G. VAGINALIS (test code = 72389) POSITIVE T. VAGINALIS (test code = ) NEGATIVE HPV HIGH RISK WITH GENOTYPE, [id number] 00:00:00 Test Item Value Reference Range Interpretation Comments HPV HIGH RISK INTERP (test code = NEGATIVE 64922) HPV 16 (test code = 08707) NEGATIVE HPV 18 (test code = 69341) NEGATIVE HPV, HR, OTHER GENOTYPES (test code NEGATIVE = 05908) HPV HIGH RISK WITH GENOTYPE, [id number] 00:00:00 Test Item Value Reference Range Interpretation Comments HPV HIGH RISK INTERP (test code = NEGATIVE 29584) HPV 16 (test code = 67422) NEGATIVE HPV 18 (test code = 35478) NEGATIVE HPV, HR, OTHER GENOTYPES (test code NEGATIVE = 26904) GC AND CHLAMYDIA AMPLIFIED, [id number] 00:00:00 Test Item Value Reference Range Interpretation Comments GONORRHEA, TMA (test code = 98459) NEGATIVE CHLAMYDIA, TMA (test code = 59594) NEGATIVE VAGINAL PATHOGENS DNA [id number] 00:00:00 Test Item Value Reference Range Interpretation Comments RONNA SPECIES (test code = ) NEGATIVE G. VAGINALIS (test code = ) POSITIVE T. VAGINALIS (test code = ) NEGATIVE GC AND CHLAMYDIA AMPLIFIED, [id number] 00:00:00 Test Item Value Reference Range Interpretation Comments GONORRHEA, TMA (test code = 66676) NEGATIVE CHLAMYDIA, TMA (test code = 66754) NEGATIVE VAGINAL PATHOGENS DNA [id number] 00:00:00 Test Item Value Reference Range Interpretation Comments RONNA SPECIES (test code = ) NEGATIVE G. VAGINALIS (test code = 76698) POSITIVE T. VAGINALIS (test code = 23347) NEGATIVE HPV HIGH RISK WITH GENOTYPE, [id number] 00:00:00 Test Item Value Reference Range Interpretation Comments HPV HIGH RISK INTERP (test code = NEGATIVE 34647) HPV 16 (test code = 17990) NEGATIVE HPV 18 (test code = 73252) NEGATIVE HPV, HR, OTHER GENOTYPES (test code NEGATIVE = 59703) HPV HIGH RISK WITH GENOTYPE, [id number] 00:00:00 Test Item Value Reference Range Interpretation Comments HPV HIGH RISK INTERP (test code = NEGATIVE 43719) HPV 16 (test code = 92105) NEGATIVE HPV 18 (test code = 46103) NEGATIVE HPV, HR, OTHER GENOTYPES (test code NEGATIVE = 27156) GC AND CHLAMYDIA AMPLIFIED, [id number] 00:00:00 Test Item Value Reference Range Interpretation Comments GONORRHEA, TMA (test code = 26562) NEGATIVE CHLAMYDIA, TMA (test code = 99630) NEGATIVE VAGINAL PATHOGENS DNA [id number] 00:00:00 Test Item Value Reference Range Interpretation Comments RONNA SPECIES (test code = ) NEGATIVE G. VAGINALIS (test code = 67137) POSITIVE T. VAGINALIS (test code = ) NEGATIVE GC AND CHLAMYDIA AMPLIFIED, [id number] 00:00:00 Test Item Value Reference Range Interpretation Comments GONORRHEA, TMA (test code = 01879) NEGATIVE CHLAMYDIA, TMA (test code = 13472) NEGATIVE VAGINAL PATHOGENS DNA [id number] 00:00:00 Test Item Value Reference Range Interpretation Comments RONNA SPECIES (test code = ) NEGATIVE G. VAGINALIS (test code = 66692) POSITIVE T. VAGINALIS (test code = ) NEGATIVE GC AND CHLAMYDIA AMPLIFIED, [id number] 00:00:00 Test Item Value Reference Range Interpretation Comments GONORRHEA, TMA (test code = 36334) NEGATIVE CHLAMYDIA, TMA (test code = 99136) NEGATIVE GC AND CHLAMYDIA AMPLIFIED, [id number] 00:00:00 Test Item Value Reference Range Interpretation Comments GONORRHEA, TMA (test code = 93111) NEGATIVE CHLAMYDIA, TMA (test code = 70713) NEGATIVE VAGINAL PATHOGENS DNA [id number] 00:00:00 Test Item Value Reference Range Interpretation Comments RONNA SPECIES (test code = ) NEGATIVE G. VAGINALIS (test code = 35047) POSITIVE T. VAGINALIS (test code = 63396) NEGATIVE VAGINAL PATHOGENS DNA [id number] 00:00:00 Test Item Value Reference Range Interpretation Comments RONNA SPECIES (test code = ) NEGATIVE G. VAGINALIS (test code = 09745) POSITIVE T. VAGINALIS (test code = 58994) NEGATIVE HPV HIGH RISK WITH GENOTYPE, [id number] 00:00:00 Test Item Value Reference Range Interpretation Comments HPV HIGH RISK INTERP (test code = NEGATIVE 96184) HPV 16 (test code = 72105) NEGATIVE HPV 18 (test code = 32711) NEGATIVE HPV, HR, OTHER GENOTYPES (test code NEGATIVE = 58541) HPV HIGH RISK WITH GENOTYPE, [id number] 00:00:00 Test Item Value Reference Range Interpretation Comments HPV HIGH RISK INTERP (test code = NEGATIVE 32130) HPV 16 (test code = 56178) NEGATIVE HPV 18 (test code = 84892) NEGATIVE HPV, HR, OTHER GENOTYPES (test code NEGATIVE = 98945) VAGINAL PATHOGENS DNA [id number] 00:00:00 Test Item Value Reference Range Interpretation Comments RONNA SPECIES (test code = ) NEGATIVE G. VAGINALIS (test code = 75159) POSITIVE T. VAGINALIS (test code = ) NEGATIVE GC AND CHLAMYDIA AMPLIFIED, [id number] 00:00:00 Test Item Value Reference Range Interpretation Comments GONORRHEA, TMA (test code = 43108) NEGATIVE CHLAMYDIA, TMA (test code = 63207) NEGATIVE GC AND CHLAMYDIA AMPLIFIED, [id number] 00:00:00 Test Item Value Reference Range Interpretation Comments GONORRHEA, TMA (test code = 20135) NEGATIVE CHLAMYDIA, TMA (test code = 25848) NEGATIVE VAGINAL PATHOGENS DNA [id number] 00:00:00 Test Item Value Reference Range Interpretation Comments RONNA SPECIES (test code = ) NEGATIVE G. VAGINALIS (test code = 01669) POSITIVE T. VAGINALIS (test code = ) NEGATIVE HPV HIGH RISK WITH GENOTYPE, [id number] 00:00:00 Test Item Value Reference Range Interpretation Comments HPV HIGH RISK INTERP (test code = NEGATIVE 53729) HPV 16 (test code = 37347) NEGATIVE HPV 18 (test code = 00096) NEGATIVE HPV, HR, OTHER GENOTYPES (test code NEGATIVE = 26792) HPV HIGH RISK WITH GENOTYPE, [id number] 00:00:00 Test Item Value Reference Range Interpretation Comments HPV HIGH RISK INTERP (test code = NEGATIVE 32962) HPV 16 (test code = 30790) NEGATIVE HPV 18 (test code = 70429) NEGATIVE HPV, HR, OTHER GENOTYPES (test code NEGATIVE = 80474) HPV HIGH RISK WITH GENOTYPE, [id number] 00:00:00 Test Item Value Reference Range Interpretation Comments HPV HIGH RISK INTERP (test code = NEGATIVE 82091) HPV 16 (test code = 30651) NEGATIVE HPV 18 (test code = 45464) NEGATIVE HPV, HR, OTHER GENOTYPES (test code NEGATIVE = 13679) HPV HIGH RISK WITH GENOTYPE, [id number] 00:00:00 Test Item Value Reference Range Interpretation Comments HPV HIGH RISK INTERP (test code = NEGATIVE 37617) HPV 16 (test code = 85058) NEGATIVE HPV 18 (test code = 44863) NEGATIVE HPV, HR, OTHER GENOTYPES (test code NEGATIVE = 10661)
--- NOTE | 2022-12-03 15:43 | EDPHYS ---
Physician Documentation [facility] Name: Zack Persaud Age: 31 yrs Sex: Female : 1990 Arrival Date: 12/03/2022 Time: 15:16 Bed 19 Private MD: ED Physician Uri Navarrete HPI: 12/03 15:29 This 31 yrs old Black Female presents to ER via Ambulatory with complaints of Irregular kb Pulse, Itching. 15:29 Patient is a 31-year-old female who presents for itching all over that started this kb morning. Reports jittery feeling and palpitations since taking 3 Benadryl for the itching.. Onset: The symptoms/episode began/occurred today. Severity of symptoms: At their worst the symptoms were mild in the emergency department the symptoms are unchanged. The patient has not experienced similar symptoms in the past. The patient has not recently seen a physician. Historical: - Allergies: 15:17 Adderall; aa5 15:17 Codeine; aa5 15:17 Fentanyl; aa5 15:17 Geodon; aa5 - PMHx: 15:17 Anxiety; depressive disorder; aa5 - PSHx: 15:17 tubal ligation; aa5 - Immunization history:: Adult Immunizations unknown. - Social history:: Smoking status: Reported history of juuling and/or vaping. Patient uses alcohol, occasionally. Patient/guardian denies using street drugs. ROS: 15:28 Constitutional: Negative for fever, chills, and weight loss. kb 15:28 Cardiovascular: Positive for palpitations. 15:28 All other systems are negative. Exam: 15:28 Constitutional: This is a well developed, well nourished patient who is awake, alert, kb and in no acute distress. Head/Face: Normocephalic, atraumatic. ENT: Moist Mucous membranes Cardiovascular: Regular rate and rhythm with a normal S1 and S2. No gallops, murmurs, or rubs. No pulse deficits. Respiratory: Respirations even and unlabored. No increased work of breathing. Talking in full sentences Abdomen/GI: Soft, non-tender. No distention Skin: Warm, dry with normal turgor. Normal color. MS/ Extremity: Pulses equal, no cyanosis. Neurovascular intact. Full, normal range of motion. Neuro: Awake and alert, GCS 15, oriented to person, place, time, and situation. Moves all extremities. Normal gait. 15:41 ECG was reviewed by the Attending Physician. kb Vital Signs: 15:17 BP 125 / 86; Pulse 85; Resp 16 S; Temp 98.0(TE); Pulse Ox 100% on R/A; aa5 MDM: 15:16 Patient medically screened. kb 15:22 Data reviewed: vital signs, nurses notes. kb 15:26 Differential diagnosis: Rash, allergic reaction, scabies. Counseling: I had a detailed kb discussion with the patient and/or guardian regarding: the historical points, exam findings, and any diagnostic results supporting the discharge/admit diagnosis, the need for outpatient follow up, a family practitioner, to return to the emergency department if symptoms worsen or persist or if there are any questions or concerns that arise at home. ED course: Patient is a 31-year-old female who presents for itching to entire body that started today. States she was at work when she started itching all over so she took a Benadryl at 10 AM then took another 1 at 1030 because the itching had not subsided took third tablet at 12 PM then took a nap. States she has been feeling jittery and like her heart is racing since taking the Benadryl. Reports she is still itching all over. States one of her friends told her he was itching all over as well. Patient has no rashes on exam. Discussed scabies and that we could try treatment for that. Patient is in agreement. Educated not to take any more Benadryl today.. 12/03 15:22 Order name: EKG; Complete Time: 15:22 kb 12/03 15:22 Order name: EKG - Nurse/Tech; Complete Time: 15:38 kb EC:41 Rate is 78 beats/min. Rhythm is regular. QRS [place] is Normal. [place] interval is normal at kb 160 msec. QRS interval is normal at 84 msec. QT interval is normal at 405 msec. Administered Medications: No medications were administered Disposition: 18:38 Co-signature as Attending Physician, Uri Navarrete MD I reviewed the patient's care rt provided by the Advanced Practice Provider and agree with the diagnosis and treatment plan. Disposition Summary: 12/03/22 15:42 Discharge Ordered Location: Home kb Condition: Stable kb Diagnosis - Pruritus, unspecified kb - Palpitations kb Followup: kb - With: Emergency Department - When: As needed - Reason: Worsening of condition Followup: kb - With: Private Physician - When: 2 - 3 days - Reason: Recheck today's complaints, Continuance of care, Re-evaluation by your physician Discharge Instructions: - Discharge Summary Sheet kb - Pruritus kb - Palpitations, [id number] kb - Scabies, Adult kb Forms: - Medication Reconciliation Form kb - Thank You Letter kb - Antibiotic Education kb - Prescription Opioid Use kb Prescriptions: - Elimite 5 % Topical Cream - apply 1 application by TOPICAL route one time Wash after 12 hours.; 60 gram; kb Refills: 0, Product Selection Permitted Signatures: Anabel Phan, MORGAN WEST-Corine Reyna, RN RN aa5 Uri Navarrete MD MD rt
--- NOTE | 2022-12-03 15:43 | ER ---
Nurse's Notes [facility] Name: Zack Persaud Age: 31 yrs Sex: Female : 1990 Arrival Date: 12/03/2022 Time: 15:16 Bed 19 Private MD: Diagnosis: Pruritus, unspecified;Palpitations Presentation: 12/03 15:17 Chief complaint: Patient states: "I was at work and I am feeling really itchy all over aa5 and I took a total of 3 Benadryls and the Benadryl has me feeling jittery". Coronavirus screen: At this time, the client does not indicate any symptoms associated with coronavirus-19. Ebola Screen: Patient denies travel to an Ebola-affected area in the 21 days before illness onset. Initial Sepsis Screen: Does the patient meet any 2 criteria? No. Patient's initial sepsis screen is negative. Does the patient have a suspected source of infection? No. Patient's initial sepsis screen is negative. Risk Assessment: Do you want to hurt yourself or someone else? Patient reports no desire to harm self or others. Onset of symptoms was December 03, 2022. 15:17 Method Of Arrival: Ambulatory aa5 15:17 Acuity: SHERRI 4 aa5 Historical: - Allergies: 15:17 Adderall; aa5 15:17 Codeine; aa5 15:17 Fentanyl; aa5 15:17 Geodon; aa5 - PMHx: 15:17 Anxiety; depressive disorder; aa5 - PSHx: 15:17 tubal ligation; aa5 - Immunization history:: Adult Immunizations unknown. - Social history:: Smoking status: Reported history of juuling and/or vaping. Patient uses alcohol, occasionally. Patient/guardian denies using street drugs. Vital Signs: 15:17 BP 125 / 86; Pulse 85; Resp 16 S; Temp 98.0(TE); Pulse Ox 100% on R/A; aa5 ED Course: 15:16 Patient arrived in ED. as 15:16 Anabel Phan FNP-C is PHCP. kb 15:16 Uri Navarrete MD is Attending Physician. kb 15:17 Arm band placed on. aa5 15:20 Triage completed. aa5 15:28 Sharon Cross RN is Primary Nurse. kr3 Administered Medications: No medications were administered Outcome: 15:42 Discharge ordered by . kb 16:31 Patient left the ED. kr3 Signatures: Anabel Phan, MORGAN WEST-Katerin Sosa Audri RN RN aa5 Sharon Cross RN RN kr3 Corrections: (The following items were deleted from the chart) 15:20 15:17 Acuity: SHERRI 5 aa5 aa5
[2022-12-03 16:38] VITALS: BP 125/86; TEMP 98; O2SAT 100
--- NOTE | 2022-12-05 12:41 | EKG ---
Test Date: 2022-12-03 Test Time: 15:37:18 [employer]: [facility]MA MEASUREMENT RESULTS: Intervals: Rate: 78 WY: 160 QRSD: 84 QT: 356 QTc: 405 Schneider: P: 30 WY: 160 QRS: 79 T: -8 INTERPRETIVE STATEMENTS: Normal sinus rhythm Nonspecific T wave abnormality Abnormal ECG Compared to ECG 09/13/2021 19:20:52 No significant changes Electronically Signed On 12-05-22 12:37:00 [employer] by David Sung
== END 2022-12-03 16:31 | disposition home or self-care (01) ==
LOC: ER 15:14
DX: L29.9 Pruritus, unspecified (principal); R00.2 Palpitations; Z88.5 Allergy status to narcotic agent
CPT/HCPCS: 93005; 99281

== ENCOUNTER → 2022-12-04 | Emergency (ER) | payer OTHER ==
--- OUTSIDE RECORDS SUMMARY | 2022-12-04 15:47 | XMS REPORT | Continuity of Care Document ---
:1990 Author Organization [facility] t Address [address] [place] [address] Care Team Providers Name Role Phone Asked, No Pcp Primary Care Physician Unavailable MALLORY ATKINS Attending Clinician Unavailable Mallory Atkins DO Attending Clinician Thelma Russo RN Attending Clinician Unavailable Clinic Attending Clinician Unavailable TRISTEN RAMOS Attending Clinician Unavailable Tristen Puckett Attending Clinician Keaton Schroeder DO Attending Clinician ATTILA CHUNG Attending Clinician Unavailable Lab, Adc Fam Pob I Attending Clinician Unavailable HIMANSHU RICE Attending Clinician Unavailable UNKNOWN, ATTENDING Attending Clinician Unavailable Clinic Admitting Clinician Unavailable Payers Payer Name Policy Type Policy Number Effective Date Expiration Date [facility] [id number] 2020 DUAL COMPLETE HMO 00:00:00 MEDICAID [facility] [id number] 2019 00:00:00 MEDICARE PART A \T\ [id number] 2011 B 00:00:00 Problems Condition Condition Condition Status Onset Resolution Last Treating Co mments Source Name Details Category Date Date Treatment Clinician Date Recurrent Recurrent Disease Active Uni vers vaginitis vaginitis 5-14 ity of 00:00: [place] 00 Medical Branch Abdominal Abdominal Disease Active [...] 00 to drug Ziprasid Propensi Active Swelling Meth mara one Hcl ty to 8-14 st adverse 00:00: Hospita reaction 00 l s to drug Latex Propensi Active Hives 2018- Methodi ty to 8-14 st adverse 00:00: [...] adverse 00:00: [place] reaction 00 Medical s [place] NO KNOWN Drug Active Univers ALLERGIE Class ity of S [facility] Social History Social Habit Start Date Stop Date Quantity Comments Source History of tobacco Light tobacco Uni versity of use smoker [facility] Exposure to 2022-07-13 2022-07-23 Not sure University SARS-CoV-2 (event) 00:00:00 15:04:00 [facility] Alcohol intake 2020-05-27 2020-05-27 Current drinker Metho dist 00:00:00 00:00:00 of [facility] (finding) Alcohol Comment 2019-05-29 2019-05-29 occasional [facility] 00:00:00 00:00:00 Hospital Cigarettes smoked 2019-05-29 2019-05-29 [facility] current (pack per 00:00:00 00:00:00 Hospita l day) - Reported Tobacco use and 2019-05-29 2019-05-29 Smokeless tobacco [facility] exposure 00:00:00 00:00:00 non-user Hospital Sex Assigned At [birth year] [facility] 00:00:00 00:00:00 Hospital Smoking Status Start Date Stop Date Source Light tobacco smoker 2019 00:00:00 [facility] Smokes tobacco daily 2019-05-29 00:00:00 [facility] Medications Ordered Filled Start Stop Current Ordering Indication Dosage Frequency Signature Comments Components Source Medication Medication Date Date Medication? Clinician (SIG) Name Name TAKE 2021-10 No TABLET 0-31 EVERY 8 00:00: HOURS 00 NEEDED TAKE 2021-10 No TABLET 0-31 EVERY 8 00:00: HOURS 00 NEEDED erythromyci 2021-10 Yes [id number] .5[in_u Place 0.5 Univers n 5 mg/gram 0-08 986167 s] Inches in i ty of (0.5 %) 00:00: both eyes [place] ophthalmic 00 at Medical ointment bedtime. Branch Continue until you follow up with eye doctor. erythromyci 2021-10- No [id number] .5[in_u Place 0.5 Univers n 5 mg/gram 0-08 10-08 068382 s] Inches in ity of (0.5 %) [...] 10 mg 4-14 tablet 00:00: 00 fluticasone 2021-0 No 12mcg/a propionate 4-14 ctuatio 50 00:00: [...] 3-10 capsule 00:00: 00 diphenhydrA 2020-1 Yes [id number] 25mg Take 1 Univers MINE 1-20 105 capsule by ity of (BENADRYL) 00:00: mouth [place] 25 mg 00 every 6 Medical capsule (six) Branch hours as needed for Allergies or Sleep. diphenhydrA 2020-1 Yes [id number] 25mg Take 1 Univers MINE 1-20 105 capsule by ity of (BENADRYL) 00:00: mouth [place] 25 mg 00 every 6 Medical capsule (six) Branch hours as needed for Allergies or Sleep. ibuprofen 2020-0 Yes [id number] 600mg Take 1 Univers 600 mg 9-23 tablet by ity of tablet 00:00: mouth [place] 00 every 6 Medical (six) Branch hours as needed for Pain (scale 4-6). ibuprofen 2020-0 Yes [id number] 600mg Take 1 Univers 600 mg 9-23 [...] 20:05:00 150 mm[Hg] Univer sity of pressure [facility] Diastolic blood 2022-07-23 20:05:00 103 mm[Hg] Unive rsity of pressure [facility] Heart rate 2022-07-23 20:05:00 82 /min Universi ty of [facility] Body temperature 2022-07-23 20:05:00 37.61 [place] Univ ersity of [facility] Respiratory rate 2022-07-23 20:05:00 18 /min [facility] Body height 2022-07-23 20:05:00 160 cm Universi ty of [facility] Body weight 2022-07-23 20:05:00 81.647 kg Universi ty [facility] BMI 2022-07-23 20:05:00 31.89 kg/m2 [facility] Oxygen saturation in 2022-07-23 20:05:00 100 /min University Arterial blood by [facility] Pulse oximetry Branch BP Systolic 2022-10-06 13:36:00 [...] Rate 2022-08-02 08:20:00 Respiratory Rate 2022-08-02 08:20:00 BP Systolic 2022-07-27 13:26:00 158 mm[Hg] BP Diastolic 2022-07-27 13:26:00 95 mm[Hg] Weight Measured 2022-07-27 13:26:00 182.00 pounds Height Measured 2022-07-27 13:26:00 62.40 inches Body Temperature 2022-07-27 13:26:00 98.80 degrees Heart Rate 2022-07-27 13:26:00 67.00 /min Respiratory Rate 2022-07-27 13:26:00 BP Systolic 2022-07-04 19:52:00 BP Diastolic 2022-07-04 [...] 2022-07-23 20:02:47 Doctor Unassigned, No Univ [facility] PRACTICES Name Medical Branch CONSENT/REFUSAL FOR 2022-07-23 19:57:49 Doctor Unassigned, No [facility] DIAGNOSIS AND TREATMENT Name Medical Branch Ekg W/ At Least 12 2021-10-04 00:00:00 Leads W/ [place] r [address] Us Pelvic 2021-05-14 00:00:00 Nonobstetric Complete 95757 Us Abdominal 2021-05-14 00:00:00 Complete Plan of Care Planned Activity Planned Date Details Comments Source Future Scheduled 2022-10-09 COVID-19 VACCINE [facility] Test 13:43:20 (#1) [code = COVID-19 VACCINE (#1)] Future Scheduled 2022-10-09 Screening for [facility] Test 13:43:20 malignant neoplasm of cervix (procedure) [code = 912092771] Future Scheduled 2022-10-09 [facility]FLUENZA VACCINE [facility] 13:43:20 [code = INFLUENZA VACCINE] Future Scheduled 2022-10-09 [facility]INE [facility] Test 13:43:20 (#1) [code = COVID-19 VACCINE (#1)] Future Scheduled 2022-10-09 [facility] Test 13:43:20 malignant neoplasm of cervix (procedure) [code = 454220274] Future Scheduled 2022-10-09 [facility]ACCINE [facility] 13:43:20 [code = INFLUENZA VACCINE] Future Scheduled 2022-10-09 COVID-19 VACCINE Methodi [facility] Test 13:43:20 (#1) [code = COVID-19 VACCINE (#1)] Future Scheduled 2022-10-09 [facility] Test 13:43:20 malignant neoplasm of cervix (procedure) [code = 915400469] Future Scheduled 2022-10-09 [facility]ZA [facility]ACCINE [facility] Test 13:43:20 [code = INFLUENZA VACCINE] Future Scheduled 2022-10-09 COVID-19 VACCINE Method[facility] Test 13:43:20 (#1) [code = COVID-19 VACCINE (#1)] Future Scheduled 2022-10-09 [facility] Test 13:43:20 malignant neoplasm of cervix (procedure) [code = 807270445] Future Scheduled 2022-10-09 [facility]ZA [facility]ACCINE [facility] Test 13:43:20 [code = INFLUENZA VACCINE] Future Scheduled 2022-10-02 [facility] 01[facility] (#1) [code = COVID-19 VACCINE (#1)] Future Scheduled 2022-10-02 [facility]INE [facility] Test 01:26:14 [code = INFLUENZA VACCINE] Future Scheduled 2022-06-26 [facility] 03:02:31 VACCINES (1 of 3 - 3-dose series) [code = HEPATITIS B VACCINES (1 of 3 - 3-dose series)] Future Scheduled 2022-06-26 COVID-19 VACCINE Method[facility] Test 03:02:31 (#1) [code = COVID-19 VACCINE (#1)] Future Scheduled 2022-06-26 [facility] Test 03:02:31 malignant neoplasm of cervix (procedure) [code = 064721865] Future Scheduled 2022-06-26 [facility]ACCINE [facility] Test 03:02:31 [code = INFLUENZA VACCINE] Future Scheduled 2022-06-26 [facility] 03:02:31 VACCINES (1 of 3 - 3-dose series) [code = HEPATITIS B VACCINES (1 of 3 - 3-dose series)] Future Scheduled 2022-06-26 COVID-19 [facility]ACCINE [facility] Test 03:02:31 (#1) [code = COVID-19 VACCINE (#1)] Future Scheduled 2022-06-26 [facility] Test 03:02:31 malignant neoplasm of cervix (procedure) [code = 292876038] Future Scheduled 2022-06-26 [facility]ZA [facility]ACCINE [facility] Test 03:02:31 [code = INFLUENZA VACCINE] Future Scheduled 2022-06-26 [facility] 03:02:31 VACCINES (1 of 3 - 3-dose series) [code = HEPATITIS B VACCINES (1 of 3 - 3-dose series)] Future Scheduled 2022-06-26 [facility]INE [facility] Test 03:02:31 (#1) [code = COVID-19 VACCINE (#1)] Future Scheduled 2022-06-26 [facility] Test 03:02:31 malignant neoplasm of cervix (procedure) [code = 481501131] Future Scheduled 2022-06-26 [facility]ZA [facility]ACCINE [facility] Test 03:02:31 [code = INFLUENZA VACCINE] Future Scheduled COVID-19 VACCINE [facility] Test (1) [code = COVID-19 VACCINE (1)] Future Scheduled Hepatitis C [facility] Test screening (procedure) [code = 807948525] Future Scheduled [facility] Test malignant neoplasm of cervix (procedure) [code = 389473323] Future Scheduled [facility]ENZA VACCINE [facility] Test [code = INFLUENZA VACCINE] Goal Plan of Care Note [code = 54359-5] Goal Plan of Care Note [code = 89668-3] Goal Plan of Care Note [code = 18851-3] Goal Plan of Care Note [code = 65033-9] Goal Plan of Care Note [code = 31112-8] Goal Plan of Care Note [code = 50012-7] Goal Plan of Care Note [code = 61660-9] Goal Plan of Care Note [code = 72191-0] Goal Plan of Care Note [code = 15438-1] Goal Plan of Care Note [code = 48963-5] Goal Plan of Care Note [code = 56933-9] Goal Plan of Care Note [code = 15581-9] Goal Plan of Care Note [code = 19020-9] Goal Plan of Care Note [code = 48406-5] Goal Plan of Care Note [code = 58290-9] Goal Plan of Care Note [code = 95039-6] Goal Plan of Care Note [code = 09988-2] Goal Plan of Care Note [code = 97039-7] Goal Plan of Care Note [code = 95515-4] Goal Plan of Care Note [code = 80574-2] Goal Plan of Care Note [code = 98005-1] Goal Plan of Care Note [code = 05335-5] Goal Plan of Care Note [code = 82306-1] Goal Plan of Care Note [code = 64463-3] Goal Plan of Care Note [code = 23595-5] Goal Plan of Care Note [code = 01760-6] Goal Plan of Care Note [code = 45455-1] Goal Plan of Care Note [code = 84475-7] Goal Plan of Care Note [code = 87381-8] Goal Plan of Care Note [code = 39480-2] Goal Plan of Care Note [code = 52217-5] Goal Plan of Care Note [code = 53845-7] Goal Plan of Care Note [code = 68515-2] Goal Plan of Care Note [code = 11525-0] Goal Plan of Care Note [code = 32106-5] Goal Plan of Care Note [code = 74441-5] Goal Plan of Care Note [code = 73912-0] Goal Plan of Care Note [code = 95112-2] Goal Plan of Care Note [code = 72872-1] Goal Plan of Care Note [code = 53534-3] Goal Plan of Care Note [code = 07575-9] Goal Plan of Care Note [code = 04725-2] Goal Plan of Care Note [code = 31176-6] Goal Plan of Care Note [code = 80159-5] Goal Plan of Care Note [code = 92624-5] Goal Plan of Care Note [code = 62642-1] Goal Plan of Care Note [code = 12172-8] Goal Plan of Care Note [code = 76191-3] Goal Plan of Care Note [code = 08378-1] Goal Plan of Care Note [code = 51713-1] Goal Plan of Care Note [code = 40454-7] Goal Plan of Care Note [code = 68311-5] Goal Plan of Care Note [code = 94484-1] Goal Plan of Care Note [code = 11086-4] Goal Plan of Care Note [code = 32455-8] Goal Plan of Care Note [code = 11533-7] Goal Plan of Care Note [code = 63545-1] Goal Plan of Care Note [code = 46364-7] Goal Plan of Care Note [code = 59000-8] Goal Plan of Care Note [code = 14098-0] Goal Plan of Care Note [code = 97613-5] Goal Plan of Care Note [code = 20325-1] Goal Plan of Care Note [code = 16086-3] Goal Plan of Care Note [code = 18888-3] Goal Plan of Care Note [code = 33379-2] Goal Plan of Care Note [code = 80865-9] Goal Plan of Care Note [code = 23740-5] Goal Plan of Care Note [code = 37600-4] Goal Plan of Care Note [code = 81152-3] Goal Plan of Care Note [code = 10683-8] Goal Plan of Care Note [code = 54385-5] Goal Plan of Care Note [code = 35191-4] Goal Plan of Care Note [code = 64245-9] Goal Plan of Care Note [code = 44612-8] Goal Plan of Care Note [code = 38139-4] Goal Plan of Care Note [code = 98719-2] Goal Plan of Care Note [code = 41970-6] Goal Plan of Care Note [code = 23424-4] Goal Plan of Care Note [code = 87114-4] Goal Plan of Care Note [code = 33512-7] Goal Plan of Care Note [code = 61832-3] Goal Plan of Care Note [code = 55130-4] Goal Plan of Care Note [code = 69448-5] Goal Plan of Care Note [code = 42634-3] Goal Plan of Care Note [code = 20658-8] Goal Plan of Care Note [code = 71436-2] Goal Plan of Care Note [code = 39778-2] Goal Plan of Care Note [code = 46456-1] Goal Plan of Care Note [code = 15790-3] Goal Plan of Care Note [code = 25489-6] Goal Plan of Care Note [code = 59046-0] Goal Plan of Care Note [code = 71717-7] Goal Plan of Care Note [code = 68941-5] Goal Plan of Care Note [code = 79182-1] Goal Plan of Care Note [code = 63154-3] Goal Plan of Care Note [code = 38608-2] Goal Plan of Care Note [code = 85363-2] Goal Plan of Care Note [code = 60112-6] Goal Plan of Care Note [code = 63199-7] Goal Plan of Care Note [code = 53633-1] Goal Plan of Care Note [code = 02077-7] Goal Plan of Care Note [code = 07207-0] Goal Plan of Care Note [code = 47823-6] Goal Plan of Care Note [code = 07570-9] Goal Plan of Care Note [code = 30610-3] Goal Plan of Care Note [code = 71057-1] Goal Plan of Care Note [code = 77886-9] Goal Plan of Care Note [code = 74707-4] Goal Plan of Care Note [code = 64813-9] Goal Plan of Care Note [code = 27310-1] Goal Plan of Care Note [code = 75888-6] Goal Plan of Care Note [code = 46544-8] Goal Plan of Care Note [code = 01480-8] Goal Plan of Care Note [code = 13184-7] Goal Plan of Care Note [code = 28632-3] Goal Plan of Care Note [code = 03462-5] Goal Plan of Care Note [code = 49249-9] Goal Plan of Care Note [code = 79813-8] Goal Plan of Care Note [code = 10422-9] Goal Plan of Care Note [code = 15637-2] Goal Plan of Care Note [code = 99921-9] Goal Plan of Care Note [code = 83019-8] Goal Plan of Care Note [code = 33734-4] Goal Plan of Care Note [code = 36788-7] Goal Plan of Care Note [code = 79318-0] Goal Plan of Care Note [code = 40528-9] Goal Plan of Care Note [code = 23183-5] Goal Plan of Care Note [code = 47821-2] Goal Plan of Care Note [code = 45066-0] Goal Plan of Care Note [code = 05999-2] Goal Plan of Care Note [code = 58859-8] Goal Plan of Care Note [code = 84641-3] Goal Plan of Care Note [code = 34742-7] Goal Plan of Care Note [code = 03941-8] Goal Plan of Care Note [code = 09494-1] Goal Plan of Care Note [code = 65362-5] Goal Plan of Care Note [code = 05496-8] Goal Plan of Care Note [code = 19508-3] Goal Plan of Care Note [code = 77064-2] Goal Plan of Care Note [code = 05526-3] Goal Plan of Care Note [code = 43963-8] Goal Plan of Care Note [code = 92060-9] Goal Plan of Care Note [code = 31680-0] Goal Plan of Care Note [code = 74714-2] Goal Plan of Care Note [code = 75561-6] Goal Plan of Care Note [code = 73257-5] Goal Plan of Care Note [code = 34115-9] Goal Plan of Care Note [code = 47580-5] Goal Plan of Care Note [code = 45252-1] Goal Plan of Care Note [code = 12837-3] Goal Plan of Care Note [code = 59169-4] Goal Plan of Care Note [code = 18327-6] Goal Plan of Care Note [code = 92459-1] Goal Plan of Care Note [code = 18805-1] Goal Plan of Care Note [code = 31043-7] Goal Plan of Care Note [code = 79002-3] Goal Plan of Care Note [code = 02105-8] Goal Plan of Care Note [code = 15956-2] Goal Plan of Care Note [code = 94810-8] Goal Plan of Care Note [code = 55702-8] Goal Plan of Care Note [code = 10784-9] Goal Plan of Care Note [code = 25870-4] Goal Plan of Care Note [code = 84874-9] Goal Plan of Care Note [code = 29156-2] Goal Plan of Care Note [code = 28568-3] Encounters Start End Encounter Admission Attending Care Care Encounter Source Date/Time Date/Time Type Type Clinicians Facility Department ID 2021-08-14 Emergency [facility] [id number] Univers 07:02:03 ity of [facility] 2021-08-14 Emergency [facility] [id number] Univers 07:01:44 ity of [facility] 2021-08-14 Emergency [facility] [id number] Univers 06:49:26 ity of [facility] 2021-08-13 Emergency [facility] [id number] Univers 19:07:48 ity [facility] 2021-08-13 Emergency [facility] [id number] [facility]22-10-26 2022-10-26 Outpatient SFA SFA [id number] 023 Isra 10:53:54 10:53:54 0111 F Ronan 2022-10-20 2022-10-20 Outpatient SFA SFA [id number] 023 Isra 18:20:52 18:20:52 0105 F Ronan 2022-10-20 2022-10-20 Outpatient [id number]- [id number] 5c77v4-5 00:00:00 00:00:00 Visit 0h38-2o68 q28-1m45-0 -8dfe-cb4 dfe-cb41b9 2q55l994w 5n761n 2022-10-06 2022-10-06 Outpatient SFA SFA [id number] 022 Isra 13:07:12 13:07:12 1222 F Ronan 2022-10-06 2022-10-06 Outpatient [id number] t59997-4 00:00:00 00:00:00 Visit 8a30-4nt0 k04-9zn8-g -adbf-403 dbf-34431v 68ym1oivh d3bcfe 2022-08-09 2022-08-09 Outpatient SFA SFA [id number] 022 Isra 08:26:28 08:26:28 1025 F Ronan 2022-07-30 2022-07-30 Outpatient [id number]- [id number] r42k8u-4 00:00:00 00:00:00 Visit 922b-4d1f 22b-4d1f-8 -2v75-b5d g40-j9zm86 o1934bq01 87ff87 2022-07-27 2022-07-27 Outpatient [facility] [id number] 022 Isra 13:18:03 13:18:03 1012 F Ronan 2022-07-27 2022-07-27 Outpatient u4ds1i64- [id number] hm2k88-z 00:00:00 00:00:00 Visit j590-3mzw 512-4edc-b -c693-336 [id number] 947a01 2022-07-23 2022-07-23 Emergency X [facility] ERT [id number] Univers 15:12:00 16:06:00 MALLORY pace [facility] 2022-07-23 2022-07-23 Emergency [facility] [id number] Univers 15:12:00 16:06:00 [facility] [id number] [facility] 084 Branch 2022-07-23 2022-07-23 Nurse CHICO Russo [id number] [id number] Univers 00:00:00 00:00:00 Triage Thelma CORDON 350.1.13.10 it [facility] 4.2.7.[address] [facility] [id number] [facility] 019 Branch 2022-07-04 2022-07-04 Outpatient [id number] 1333g4-0 00:00:00 00:00:00 Visit 7796-4ded 796-4ded-8 -8202-57f 202-57f9d6 0o2l9i465 f7r625 2021-06-29 2021-06-29 Outpatient Clinic [facility] [id number] 210 [place] 02:44:00 02:44:00 914 n Health Box 2021-03-05 2021-03-05 Outpatient Clinic B B [id number] 210 [place] 09:41:00 09:41:00 521 n [facility] Box 2020-09-04 2020-09-04 Emergency X AKOSUA, [facility] ERT [id number] Univers 21:51:00 22:55:00 CYNLATONYA ity [facility] 2020-09-04 2020-09-04 Emergency X AKOSUA, [facility] ERT [id number] Univers 19:15:00 20:48:00 CYNLATONYA itkatherin [facility] 2020-09-04 2020-09-04 Emergency Akosua, [facility] [id number] 19:15:00 20:48:00 Leoralatonya Adri 350.1.13.10 [place] 4.2.7.2.686 [place] [id number] 082020-09-04 2020-09-04 Emergency Schroeder, [facility] [id number] 08:40:00 11:20:00 Keaton Olea 350.1.13.10 [place] 4.2.7.2.686 [place] [id number] 2020-08-25 2020-08-25 Outpatient R JULIET, [facility] [id number] Univers 14:30:00 14:30:00 WONDIFUL ity o f [facility] 2020-08-18 2020-08-18 Laboratory Lab, [facility] 1.2.840.114 [id number] 08:30:53 08:55:02 Only Fam Pob I Health 350.1.13.10 [place] 4.2.7.2.686 Professio [id number] nal [address] 2020-08-18 2020-08-18 Outpatient R DWAYNE [facility] [id number] Univers 08:40:00 08:40:00 HIMANSHUSUZIE pace [facility] 2020-07-28 2020-07-28 Outpatient R JULIET [facility] [id number] Univers 14:30:00 14:30:00 WONDIFUL ity o f [facility] 2020-02-27 2020-02-27 Outpatient R UNKNOWN, [facility] [id number] Univers 17:00:00 17:00:00 ATTENDING [facility] 2019 2019 Outpatient R UNKNOWN, [facility] [id number] Univers 19:30:00 19:30:00 ATTENDING [facility] Results Test Description Test Time Test Comments Results Result Comments Source CULTURE, URINE 2022-10-28 SPECIMEN NUMBER: 13:58:08 [id number] CULTURE, URINE SPECIMEN NUMBER: [id number] SPECIMEN COMMENT: URINE SOURCE: URINE REPORT STATUS: [...] = NEGATIVE NEGATIVE Testing is performed with Benjamin 99742) AMALIA 6800/8800 systems usingreal-time polymerase chain reaction (PCR) method. A negative result does not exclude low level infection, spec imensampling error, or collection e rror. CHLAMYDIA, NAAT (test code = NEGATIVE NEGATIVE Testing is performed with Benjamin 31652) AMALIA 6800/8800 systems usingreal-time polymerase chain reaction (PCR) method. A negative result does not exclude low level infection, spec imensampling error, or collection e rror. VAGINAL PATHOGENS DNA [id number] 15:07:41 Test Item Value Reference Range Interpretation [...] nucleic acid. HIV 1/2 4TH GEN, RFLX [id number] 05:30:35 Test Item Value Reference Range Interpretation Comments HIV 1/2 4TH GEN, RFLX CONF (test NON-REACTIVE NON-REACTIVE code = 3514) HEPATITIS PANEL, [id number] 05:30:35 Test Item Value Reference Range Interpretation Comments HEPATITIS A IgM (test NON-REACTIVE NON-REACTIVE code = 75222) HEPATITIS B CORE IgM NON-REACTIVE NON-REACTIVE (test code = 4644) HEPATITIS B SURF AG NON-REACTIVE NON-REACTIVE (test code = 2739) HEPATITIS C ANTIBODY NON-REACTIVE NON-REACTIVE (test code = 4675) INTERPRETATION (NOTE) Hepatitis A HEPATITIS A: (test code sero logy shows no = 2552) evidence of acu te hepatitis A. INTERPRETATION (NOTE) Hepatitis B HEPATITIS B: (test code sero logy shows no = 74904) evidence of acu te hepatitis B and no indication of exposure to hepatitis B vir us in the previous yelena eight months. INTERPRETATION (NOTE) Hepatitis C HEPATITIS C: (test code sero logy shows no = 77232) evidence of exposure to hepatitisC viru s at this time. I t can take up to 12 months after exposure tothe hepatitis C vir us for antibodies to become detectab le in the blood in certain patient s. RPR REFLEX TO T. PALLIDUM - [id number] 05:11:36 Test Item Value Reference Range Interpretation Comments RPR (test code = NON-REACTIVE NON-REACTIVE 68015) RPR TITER (test NOT INDIC. NOT INDIC. UNLESS OTHE RWISE code = 3500) TITER INDICATED, ALL TESTING PERFORMED [facility] PATHOLOGY [facility], [facility]. [address] [place] [address] 4 LABORATORY DIRE CTOR: RODRIGO PISANO M.D. CLIA NUMBER [id number] [place] [id number] HEMOGLOBIN [id number] 07:47:26 Test Item Value Reference Range Interpretation Comments HEMOGLOBIN A1c (test code = 53490) 5.7 % 4.2-5.6 H CBC W/AUTO DIFF WITH [id number] 06:55:00 Test Item Value Reference Range Interpretation [...] RBCS 0.00 K/UL 0.00-0.11 (test code = 06511) TSH, THIRD [id number] 06:25:46 Test Item Value Reference Range Interpretation Comments TSH, THIRD GENERATION (test code 1.300 UIU/ML 0.400-4.100 = 2821) ALBUMIN/CREATININE RATIO, URINE, [id number] 05:38:18 Test Item Value Reference Range Interpretation Comments CREATININE, URINE, 125.4 MG/DL NOT ESTAB CONC. (test code = 207) ALBUMIN, URINE, 0.7 MG/DL NOT ESTAB RANDOM (test code = 84577) CALC 6 MG/G <30 Note: ALBUMIN/CREAT, RND Albumin/C reatinine ratio (test code = reference inter alexa 49175) reflects ADA an d NKF guidelines. UNL ESS OTHERWISE INDIC ATED, ALL TESTING PERFORM ED [facility], I [place]. [address] [place] [address] LABORATORY DIRE CTOR: RODRIGO PISANO M.D. CLIA NUMBER [id number] [place] [id number] COMPREHENSIVE METABOLIC [id number] 04:35:41 Test Item Value Reference Range Interpretation Comments GLUCOSE (test code = 94 MG/DL 70-99 2216) BUN (test code = 9 MG/DL 6-20 2207) CREATININE (test 0.73 MG/DL 0.60-1.30 code = 2214) eGFR (2020 CKD-EPI) 113 >60 (test code = 75523) ML/MIN/1.73 CALC BUN/CREAT (test 12 RATIO 6-28 code = 2235) SODIUM (test code = 139 MEQ/L 509-303 5823) POTASSIUM (test code 3.9 MEQ/L 3.5-5.4 = 2227) CHLORIDE (test code 102 MEQ/L 95-107 = 2215) CARBON DIOXIDE (test 25 MEQ/L 19-31 code = 2206) CALCIUM (test code = 9.5 MG/DL 8.5-10.5 2208) PROTEIN, TOTAL (test 7.8 G/DL 6.1-8.3 code = 2229) ALBUMIN (test code = 4.6 G/DL 3.5-5.2 [...] 2204) AST (test code = 19 U/L 2217) ALT (test code = 13 U/L 40 2218) LIPID [id number] 04:35:41 Test Item Value Reference Range Interpretation [...] MOREINFORMATION , SEE CLIENT ANNOUNCE MENT AT [email or web address] RISK RATIO LDL/HDL 2.67 RATIO <3.22 (test code = 8) CBC W/AUTO [id number] 00:00:00 Test Item Value Reference Range Interpretation [...] NUCLEATED RBCS (test code = 0.00 K/UL 98496) CBC W/AUTO [id number] 00:00:00 Test Item Value Reference Range Interpretation [...] NUCLEATED RBCS (test code = 0.00 K/UL 43257) CBC W/AUTO [id number] 00:00:00 Test Item Value Reference Range Interpretation [...] NUCLEATED RBCS (test code = 0.00 K/UL 76319) COMPREHENSIVE METABOLIC [id number] 00:00:00 Test Item Value Reference Range Interpretation Comments GLUCOSE (test code = 2217) 94 MG/DL BUN (test code = 2208) 9 MG/DL CREATININE (test code = 2214) 0.73 MG/DL eGFR (2020 CKD-EPI) (test 113 ML/MIN/1.73 code = 57021) CALC BUN/CREAT (test code = 12 RATIO [...] code = 2219) 13 U/L COMPREHENSIVE METABOLIC [id number] 00:00:00 Test Item Value Reference Range Interpretation Comments GLUCOSE (test code = 2217) 94 MG/DL BUN (test code = 2208) 9 MG/DL CREATININE (test code = 2214) 0.73 MG/DL eGFR (2020 CKD-EPI) (test 113 ML/MIN/1.73 code = 36641) CALC BUN/CREAT (test code = 12 RATIO [...] RATIO 2233) BILIRUBIN, TOTAL (test code = 0.3 MG/DL 2206) ALKALINE PHOSPHATASE (test 53 U/L code = 2204) AST (test code = 2218) 19 U/L ALT (test code = 2219) 13 U/L LIPID [id number] 00:00:00 Test Item Value Reference Range Interpretation Comments CHOLESTEROL (test code = 2210) 222 MG/DL TRIGLYCERIDES (test code = 2232) 272 MG/DL HDL CHOLESTEROL (test code = 2220) 49 MG/DL CALC LDL CHOL (test code = 2237) 131 MG/DL RISK RATIO LDL/HDL (test code = 2.67 RATIO 2238) LIPID [id number] 00:00:00 Test Item Value Reference Range Interpretation Comments CHOLESTEROL (test code = 2210) 222 MG/DL TRIGLYCERIDES (test code = 2232) 272 MG/DL HDL CHOLESTEROL (test code = 2220) 49 MG/DL CALC LDL CHOL (test code = 2237) 131 MG/DL RISK RATIO LDL/HDL (test code = 2.67 RATIO 2238) HEMOGLOBIN [id number] 00:00:00 Test Item Value Reference Range Interpretation Comments HEMOGLOBIN A1c (test code = 96485) 5.7 % HEMOGLOBIN [id number] 00:00:00 Test Item Value Reference Range Interpretation Comments HEMOGLOBIN A1c (test code = 55845) 5.7 % HEMOGLOBIN [id number] 00:00:00 Test Item Value Reference Range Interpretation Comments HEMOGLOBIN A1c (test code = 73412) 5.7 % TSH, THIRD [id number] 00:00:00 Test Item Value Reference Range Interpretation Comments TSH, THIRD GENERATION (test code 1.300 UIU/ML = 2821) TSH, THIRD [id number] 00:00:00 Test Item Value Reference Range Interpretation Comments TSH, THIRD GENERATION (test code 1.300 UIU/ML = 2821) TSH, THIRD [id number] 00:00:00 Test Item Value Reference Range Interpretation Comments TSH, THIRD GENERATION (test code 1.300 UIU/ML = 2821) ALBUMIN/CREATININE RATIO, RANDOM [id number] 00:00:00 Test Item Value Reference Range Interpretation Comments CREATININE, URINE, CONC. (test 125.4 MG/DL code = 2072) ALBUMIN, URINE, RANDOM (test code 0.7 MG/DL = 56464) CALC ALBUMIN/CREAT, RND (test 6 MG/G code = 44805) ALBUMIN/CREATININE RATIO, RANDOM [id number] 00:00:00 Test Item Value Reference Range Interpretation Comments CREATININE, URINE, CONC. (test 125.4 MG/DL code = 2072) ALBUMIN, URINE, RANDOM (test code 0.7 MG/DL = 38277) CALC ALBUMIN/CREAT, RND (test 6 MG/G code = 79373) CBC W/AUTO [id number] 00:00:00 Test Item Value Reference Range Interpretation [...] NUCLEATED RBCS (test code = 0.00 K/UL 18101) CBC W/AUTO [id number] 00:00:00 Test Item Value Reference Range Interpretation [...] NUCLEATED RBCS (test code = 0.00 K/UL 54449) CBC W/AUTO [id number] 00:00:00 Test Item Value Reference Range Interpretation [...] NUCLEATED RBCS (test code = 0.00 K/UL 29796) COMPREHENSIVE METABOLIC [id number] 00:00:00 Test Item Value Reference Range Interpretation Comments GLUCOSE (test code = 2217) 94 MG/DL BUN (test code = 2208) 9 MG/DL CREATININE (test code = 2214) 0.73 MG/DL eGFR (2020 CKD-EPI) (test 113 ML/MIN/1.73 code = 65563) CALC BUN/CREAT (test code = 12 RATIO [...] code = 2219) 13 U/L COMPREHENSIVE METABOLIC [id number] 00:00:00 Test Item Value Reference Range Interpretation Comments GLUCOSE (test code = 2217) 94 MG/DL BUN (test code = 2208) 9 MG/DL CREATININE (test code = 2214) 0.73 MG/DL eGFR (2020 CKD-EPI) (test 113 ML/MIN/1.73 code = 42159) CALC BUN/CREAT (test code = 12 RATIO [...] (test code = 2219) 13 U/L LIPID [id number] 00:00:00 Test Item Value Reference Range Interpretation Comments CHOLESTEROL (test code = 2210) 222 MG/DL TRIGLYCERIDES (test code = 2232) 272 MG/DL HDL CHOLESTEROL (test code = 2220) 49 MG/DL CALC LDL CHOL (test code = 2237) 131 MG/DL RISK RATIO LDL/HDL (test code = 2.67 RATIO 2238) LIPID [id number] 00:00:00 Test Item Value Reference Range Interpretation Comments CHOLESTEROL (test code = 2210) 222 MG/DL TRIGLYCERIDES (test code = 2232) 272 MG/DL HDL CHOLESTEROL (test code = 2220) 49 MG/DL CALC LDL CHOL (test code = 2237) 131 MG/DL RISK RATIO LDL/HDL (test code = 2.67 RATIO 2238) HEMOGLOBIN [id number] 00:00:00 Test Item Value Reference Range Interpretation Comments HEMOGLOBIN A1c (test code = 05506) 5.7 % HEMOGLOBIN [id number] 00:00:00 Test Item Value Reference Range Interpretation Comments HEMOGLOBIN A1c (test code = 02979) 5.7 % HEMOGLOBIN [id number] 00:00:00 Test Item Value Reference Range Interpretation Comments HEMOGLOBIN A1c (test code = 59016) 5.7 % TSH, THIRD [id number] 00:00:00 Test Item Value Reference Range Interpretation Comments TSH, THIRD GENERATION (test code 1.300 UIU/ML = 2821) TSH, THIRD [id number] 00:00:00 Test Item Value Reference Range Interpretation Comments TSH, THIRD GENERATION (test code 1.300 UIU/ML = 2821) TSH, THIRD [id number] 00:00:00 Test Item Value Reference Range Interpretation Comments TSH, THIRD GENERATION (test code 1.300 UIU/ML = 2821) ALBUMIN/CREATININE RATIO, RANDOM [id number] 00:00:00 Test Item Value Reference Range Interpretation Comments CREATININE, URINE, CONC. (test 125.4 MG/DL code = 2072) ALBUMIN, URINE, RANDOM (test code 0.7 MG/DL = 24028) CALC ALBUMIN/CREAT, RND (test 6 MG/G code = 26353) ALBUMIN/CREATININE RATIO, RANDOM [id number] 00:00:00 Test Item Value Reference Range Interpretation Comments CREATININE, URINE, CONC. (test 125.4 MG/DL code = 2072) ALBUMIN, URINE, RANDOM (test code 0.7 MG/DL = 97814) CALC ALBUMIN/CREAT, RND (test 6 MG/G code = 77052) VAGINAL PATHOGENS DNA [id number] 14:16:13 Test Item Value Reference Range Interpretation Comments RONNA SPECIES (test NEGATIVE NEGATIVE code = 70652) G. VAGINALIS (test POSITIVE NEGATIVE A code = 98912) T. VAGINALIS (test NEGATIVE NEGATIVE UNLESS O THERWISE code = 51793) INDICATED, ALL TESTING PERFORMED [facility] PATHOLOGY [facility], [facility]. [address] [place] [address] 4 LABORATORY DIRE CTOR: RODRIGO PISANO M.D. CLIA NUMBER [id number] [facility] [place] [id number] VAGINAL PATHOGENS DNA PANEL [ADDED]2021-10-05 00:00:00 Test Item Value Reference Range Interpretation Comments RONNA SPECIES (test code = 68736) NEGATIVE G. VAGINALIS (test code = 02228) POSITIVE T. VAGINALIS (test code = 64061) NEGATIVE VAGINAL PATHOGENS DNA PANEL [ADDED]2021-10-05 00:00:00 Test Item Value Reference Range Interpretation Comments RONNA SPECIES (test code = 11895) NEGATIVE G. VAGINALIS (test code = 75281) POSITIVE T. VAGINALIS (test code = 67820) NEGATIVE VAGINAL PATHOGENS DNA PANEL [ADDED]2021-10-05 00:00:00 Test Item Value Reference Range Interpretation Comments RONNA SPECIES (test code = 84980) NEGATIVE G. VAGINALIS (test code = 34427) POSITIVE T. VAGINALIS (test code = 48794) NEGATIVE VAGINAL PATHOGENS DNA PANEL [ADDED]2021-10-05 00:00:00 Test Item Value Reference Range Interpretation Comments RONNA SPECIES (test code = 25824) NEGATIVE G. VAGINALIS (test code = 70407) POSITIVE T. VAGINALIS (test code = 47268) NEGATIVE VAGINAL PATHOGENS DNA PANEL [ADDED]2021-10-05 00:00:00 Test Item Value Reference Range Interpretation Comments RONNA SPECIES (test code = 93712) NEGATIVE G. VAGINALIS (test code = 78069) POSITIVE T. VAGINALIS (test code = 41155) NEGATIVE VAGINAL PATHOGENS DNA PANEL [ADDED]2021-10-05 00:00:00 Test Item Value Reference Range Interpretation Comments RONNA SPECIES (test code = 42424) NEGATIVE G. VAGINALIS (test code = 05928) POSITIVE T. VAGINALIS (test code = 69692) NEGATIVE VAGINAL PATHOGENS DNA PANEL [ADDED]2021-10-05 00:00:00 Test Item Value Reference Range Interpretation Comments RONNA SPECIES (test code = 74222) NEGATIVE G. VAGINALIS (test code = 54905) POSITIVE T. VAGINALIS (test code = 36107) NEGATIVE VAGINAL PATHOGENS DNA PANEL [ADDED]2021-10-05 00:00:00 Test Item Value Reference Range Interpretation Comments RONNA SPECIES (test code = ) NEGATIVE G. VAGINALIS (test code = 13463) POSITIVE T. VAGINALIS (test code = ) NEGATIVE VAGINAL PATHOGENS DNA PANEL [ADDED]2021-10-05 00:00:00 Test Item Value Reference Range Interpretation Comments RONNA SPECIES (test code = ) NEGATIVE G. VAGINALIS (test code = 45645) POSITIVE T. VAGINALIS (test code = 18921) NEGATIVE VAGINAL PATHOGENS DNA PANEL [ADDED]2021-10-05 00:00:00 Test Item Value Reference Range Interpretation Comments RONNA SPECIES (test code = ) NEGATIVE G. VAGINALIS (test code = 20613) POSITIVE T. VAGINALIS (test code = ) NEGATIVE MUMPS IgG AND [id number] 00:00:00 Test Item Value Reference Range Interpretation Comments MUMPS VIRUS IgG (test code = 32.3 AU/mL 93607) MUMPS VIRUS IgM (test code = 4587) 0.35 IV MUMPS IgG AND [id number] 00:00:00 Test Item Value Reference Range Interpretation Comments MUMPS VIRUS IgG (test code = 32.3 AU/mL 93957) MUMPS VIRUS IgM (test code = 4587) 0.35 IV MUMPS IgG AND [id number] 00:00:00 Test Item Value Reference Range Interpretation Comments MUMPS VIRUS IgG (test code = 32.3 AU/mL 67592) MUMPS VIRUS IgM (test code = 4587) 0.35 IV MUMPS IgG AND [id number] 00:00:00 Test Item Value Reference Range Interpretation Comments MUMPS VIRUS IgG (test code = 32.3 AU/mL 41211) MUMPS VIRUS IgM (test code = 4587) 0.35 IV MUMPS IgG AND [id number] 00:00:00 Test Item Value Reference Range Interpretation Comments MUMPS VIRUS IgG (test code = 32.3 AU/mL 78509) MUMPS VIRUS IgM (test code = 4587) 0.35 IV MUMPS IgG AND [id number] 00:00:00 Test Item Value Reference Range Interpretation Comments MUMPS VIRUS IgG (test code = 32.3 AU/mL 93690) MUMPS VIRUS IgM (test code = 4587) 0.35 IV MUMPS IgG AND [id number] 00:00:00 Test Item Value Reference Range Interpretation Comments MUMPS VIRUS IgG (test code = 32.3 AU/mL 18954) MUMPS VIRUS IgM (test code = 4587) 0.35 IV MUMPS IgG AND [id number] 00:00:00 Test Item Value Reference Range Interpretation Comments MUMPS VIRUS IgG (test code = 32.3 AU/mL 16232) MUMPS VIRUS IgM (test code = 4587) 0.35 IV MUMPS IgG AND [id number] 00:00:00 Test Item Value Reference Range Interpretation Comments MUMPS VIRUS IgG (test code = 32.3 AU/mL 16955) MUMPS VIRUS IgM (test code = 4587) 0.35 IV MUMPS IgG AND [id number] 00:00:00 Test Item Value Reference Range Interpretation Comments MUMPS VIRUS IgG (test code = 32.3 AU/mL 26507) MUMPS VIRUS IgM (test code = 4587) 0.35 IV VARICELLA ZOSTER [id number] 00:00:00 Test Item Value Reference Range Interpretation Comments VARICELLA ZOSTER IgG (test code = >2000 INDEX 88617) VARICELLA ZOSTER [id number] 00:00:00 Test Item Value Reference Range Interpretation Comments VARICELLA ZOSTER IgG (test code = >2000 INDEX 59628) RUBEOLA IgG [id number] 00:00:00 Test Item Value Reference Range Interpretation Comments RUBEOLA IgG ANTIBODY (test code = 166.0 AU/ML 69103) RUBEOLA IgG [id number] 00:00:00 Test Item Value Reference Range Interpretation Comments RUBEOLA IgG ANTIBODY (test code = 166.0 AU/ML 28007) VARICELLA ZOSTER [id number] 00:00:00 Test Item Value Reference Range Interpretation Comments VARICELLA ZOSTER IgG (test code = >2000 INDEX 23025) VARICELLA ZOSTER [id number] 00:00:00 Test Item Value Reference Range Interpretation Comments VARICELLA ZOSTER IgG (test code = >2000 INDEX 67655) RUBEOLA IgG [id number] 00:00:00 Test Item Value Reference Range Interpretation Comments RUBEOLA IgG ANTIBODY (test code = 166.0 AU/ML 27913) RUBEOLA IgG [id number] 00:00:00 Test Item Value Reference Range Interpretation Comments RUBEOLA IgG ANTIBODY (test code = 166.0 AU/ML 27167) VARICELLA ZOSTER [id number] 00:00:00 Test Item Value Reference Range Interpretation Comments VARICELLA ZOSTER IgG (test code = >2000 INDEX 22781) VARICELLA ZOSTER [id number] 00:00:00 Test Item Value Reference Range Interpretation Comments VARICELLA ZOSTER IgG (test code = >2000 INDEX 98751) VARICELLA ZOSTER [id number] 00:00:00 Test Item Value Reference Range Interpretation Comments VARICELLA ZOSTER IgG (test code = >2000 INDEX 45281) RUBEOLA IgG [id number] 00:00:00 Test Item Value Reference Range Interpretation Comments RUBEOLA IgG ANTIBODY (test code = 166.0 AU/ML 07079) RUBEOLA IgG [id number] 00:00:00 Test Item Value Reference Range Interpretation Comments RUBEOLA IgG ANTIBODY (test code = 166.0 AU/ML 24132) VARICELLA ZOSTER [id number] 00:00:00 Test Item Value Reference Range Interpretation Comments VARICELLA ZOSTER IgG (test code = >2000 INDEX 12499) VARICELLA ZOSTER [id number] 00:00:00 Test Item Value Reference Range Interpretation Comments VARICELLA ZOSTER IgG (test code = >2000 INDEX 95809) VARICELLA ZOSTER [id number] 00:00:00 Test Item Value Reference Range Interpretation Comments VARICELLA ZOSTER IgG (test code = >2000 INDEX 31086) RUBEOLA IgG [id number] 00:00:00 Test Item Value Reference Range Interpretation Comments RUBEOLA IgG ANTIBODY (test code = 166.0 AU/ML 41578) RUBEOLA IgG [id number] 00:00:00 Test Item Value Reference Range Interpretation Comments RUBEOLA IgG ANTIBODY (test code = 166.0 AU/ML 00064) RUBEOLA IgG [id number] 00:00:00 Test Item Value Reference Range Interpretation Comments RUBEOLA IgG ANTIBODY (test code = 166.0 AU/ML 76998) RUBEOLA IgG [id number] 00:00:00 Test Item Value Reference Range Interpretation Comments RUBEOLA IgG ANTIBODY (test code = 166.0 AU/ML 47378) RUBELLA ANTIBODY [id number] 00:00:00 Test Item Value Reference Range Interpretation Comments RUBELLA ANTIBODY SCREEN (test code 247 IU/ML = 4600) RUBELLA IgG INTERP (test code = REACTIVE 65324) RUBELLA ANTIBODY [id number] 00:00:00 Test Item Value Reference Range Interpretation Comments RUBELLA ANTIBODY SCREEN (test code 247 IU/ML = 4600) RUBELLA IgG INTERP (test code = REACTIVE 67383) RUBELLA ANTIBODY [id number] 00:00:00 Test Item Value Reference Range Interpretation Comments RUBELLA ANTIBODY SCREEN (test code 247 IU/ML = 4600) RUBELLA IgG INTERP (test code = REACTIVE 07207) RUBELLA ANTIBODY [id number] 00:00:00 Test Item Value Reference Range Interpretation Comments RUBELLA ANTIBODY SCREEN (test code 247 IU/ML = 4600) RUBELLA IgG INTERP (test code = REACTIVE 90089) RUBELLA ANTIBODY [id number] 00:00:00 Test Item Value Reference Range Interpretation Comments RUBELLA ANTIBODY SCREEN (test code 247 IU/ML = 4600) RUBELLA IgG INTERP (test code = REACTIVE 94707) RUBELLA ANTIBODY [id number] 00:00:00 Test Item Value Reference Range Interpretation Comments RUBELLA ANTIBODY SCREEN (test code 247 IU/ML = 4600) RUBELLA IgG INTERP (test code = REACTIVE 64998) RUBELLA ANTIBODY [id number] 00:00:00 Test Item Value Reference Range Interpretation Comments RUBELLA ANTIBODY SCREEN (test code 247 IU/ML = 4600) RUBELLA IgG INTERP (test code = REACTIVE 65934) RUBELLA ANTIBODY [id number] 00:00:00 Test Item Value Reference Range Interpretation Comments RUBELLA ANTIBODY SCREEN (test code 247 IU/ML = 4600) RUBELLA IgG INTERP (test code = REACTIVE 12724) RUBELLA ANTIBODY [id number] 00:00:00 Test Item Value Reference Range Interpretation Comments RUBELLA ANTIBODY SCREEN (test code 247 IU/ML = 4600) RUBELLA IgG INTERP (test code = REACTIVE 37436) RUBELLA ANTIBODY [id number] 00:00:00 Test Item Value Reference Range Interpretation Comments RUBELLA ANTIBODY SCREEN (test code 247 IU/ML = 4600) RUBELLA IgG INTERP (test code = REACTIVE 11354) VAGINAL PATHOGENS DNA [id number] 00:00:00 Test Item Value Reference Range Interpretation Comments RONNA SPECIES (test code = ) NEGATIVE G. VAGINALIS (test code = ) POSITIVE T. VAGINALIS (test code = ) NEGATIVE VAGINAL PATHOGENS DNA [id number] 00:00:00 Test Item Value Reference Range Interpretation Comments RONNA SPECIES (test code = ) NEGATIVE G. VAGINALIS (test code = 13557) POSITIVE T. VAGINALIS (test code = ) NEGATIVE GC AND CHLAMYDIA, AMPLIFIED, [id number] 00:00:00 Test Item Value Reference Range Interpretation Comments GONORRHEA, NAAT (test code = 82332) NEGATIVE CHLAMYDIA, NAAT (test code = 03829) NEGATIVE GC AND CHLAMYDIA, AMPLIFIED, [id number] 00:00:00 Test Item Value Reference Range Interpretation Comments GONORRHEA, NAAT (test code = 05471) NEGATIVE CHLAMYDIA, NAAT (test code = 23288) NEGATIVE HIV AB/AG COMBO RFLX [id number] 00:00:00 Test Item Value Reference Range Interpretation Comments HIV 1/2 4TH GEN, RFLX CONF (test NON-REACTIVE code = 3514) HIV AB/AG COMBO RFLX [id number] 00:00:00 Test Item Value Reference Range Interpretation Comments HIV 1/2 4TH GEN, RFLX CONF (test NON-REACTIVE code = 3514) [id number] 00:00:00 Test Item Value Reference Range Interpretation Comments RPR RESULT (test code = NON-REACTIVE 3501) RPR TITER (test code = 3500) NOT INDIC. TITER [id number] 00:00:00 Test Item Value Reference Range Interpretation Comments RPR RESULT (test code = NON-REACTIVE 3501) RPR TITER (test code = 3500) NOT INDIC. TITER [id number] 00:00:00 Test Item Value Reference Range Interpretation Comments RPR RESULT (test code = NON-REACTIVE 3501) RPR TITER (test code = 3500) NOT INDIC. TITER VAGINAL PATHOGENS DNA [id number] 00:00:00 Test Item Value Reference Range Interpretation Comments RONNA SPECIES (test code = ) NEGATIVE G. VAGINALIS (test code = 17973) POSITIVE T. VAGINALIS (test code = ) NEGATIVE VAGINAL PATHOGENS DNA [id number] 00:00:00 Test Item Value Reference Range Interpretation Comments RONNA SPECIES (test code = ) NEGATIVE G. VAGINALIS (test code = 01115) POSITIVE T. VAGINALIS (test code = ) NEGATIVE GC AND CHLAMYDIA, AMPLIFIED, [id number] 00:00:00 Test Item Value Reference Range Interpretation Comments GONORRHEA, NAAT (test code = 97578) NEGATIVE CHLAMYDIA, NAAT (test code = 61897) NEGATIVE GC AND CHLAMYDIA, AMPLIFIED, [id number] 00:00:00 Test Item Value Reference Range Interpretation Comments GONORRHEA, NAAT (test code = 86123) NEGATIVE CHLAMYDIA, NAAT (test code = 27352) NEGATIVE HIV AB/AG COMBO RFLX [id number] 00:00:00 Test Item Value Reference Range Interpretation Comments HIV 1/2 4TH GEN, RFLX CONF (test NON-REACTIVE code = 3514) VAGINAL PATHOGENS DNA [id number] 00:00:00 Test Item Value Reference Range Interpretation Comments RONNA SPECIES (test code = ) NEGATIVE G. VAGINALIS (test code = ) POSITIVE T. VAGINALIS (test code = ) NEGATIVE HIV AB/AG COMBO RFLX [id number] 00:00:00 Test Item Value Reference Range Interpretation Comments HIV 1/2 4TH GEN, RFLX CONF (test NON-REACTIVE code = 3514) [id number] 00:00:00 Test Item Value Reference Range Interpretation Comments RPR RESULT (test code = NON-REACTIVE 3501) RPR TITER (test code = 3500) NOT INDIC. TITER [id number] 00:00:00 Test Item Value Reference Range Interpretation Comments RPR RESULT (test code = NON-REACTIVE 3501) RPR TITER (test code = 3500) NOT INDIC. TITER [id number] 00:00:00 Test Item Value Reference Range Interpretation Comments RPR RESULT (test code = NON-REACTIVE 3501) RPR TITER (test code = 3500) NOT INDIC. TITER VAGINAL PATHOGENS DNA [id number] 00:00:00 Test Item Value Reference Range Interpretation Comments RONNA SPECIES (test code = ) NEGATIVE G. VAGINALIS (test code = 71141) POSITIVE T. VAGINALIS (test code = 07489) NEGATIVE VAGINAL PATHOGENS DNA [id number] 00:00:00 Test Item Value Reference Range Interpretation Comments RONNA SPECIES (test code = ) NEGATIVE G. VAGINALIS (test code = ) POSITIVE T. VAGINALIS (test code = ) NEGATIVE VAGINAL PATHOGENS DNA [id number] 00:00:00 Test Item Value Reference Range Interpretation Comments RONNA SPECIES (test code = ) NEGATIVE G. VAGINALIS (test code = 01287) POSITIVE T. VAGINALIS (test code = ) NEGATIVE GC AND CHLAMYDIA, AMPLIFIED, [id number] 00:00:00 Test Item Value Reference Range Interpretation Comments GONORRHEA, NAAT (test code = 05067) NEGATIVE CHLAMYDIA, NAAT (test code = 87092) NEGATIVE GC AND CHLAMYDIA, AMPLIFIED, [id number] 00:00:00 Test Item Value Reference Range Interpretation Comments GONORRHEA, NAAT (test code = 28720) NEGATIVE CHLAMYDIA, NAAT (test code = 64163) NEGATIVE HIV AB/AG COMBO RFLX [id number] 00:00:00 Test Item Value Reference Range Interpretation Comments HIV 1/2 4TH GEN, RFLX CONF (test NON-REACTIVE code = 3514) HIV AB/AG COMBO RFLX [id number] 00:00:00 Test Item Value Reference Range Interpretation Comments HIV 1/2 4TH GEN, RFLX CONF (test NON-REACTIVE code = 3514) [id number] 00:00:00 Test Item Value Reference Range Interpretation Comments RPR RESULT (test code = NON-REACTIVE 3501) RPR TITER (test code = 3500) NOT INDIC. TITER [id number] 00:00:00 Test Item Value Reference Range Interpretation Comments RPR RESULT (test code = NON-REACTIVE 3501) RPR TITER (test code = 3500) NOT INDIC. TITER [id number] 00:00:00 Test Item Value Reference Range Interpretation Comments RPR RESULT (test code = NON-REACTIVE 3501) RPR TITER (test code = 3500) NOT INDIC. TITER GC AND CHLAMYDIA, AMPLIFIED, [id number] 00:00:00 Test Item Value Reference Range Interpretation Comments GONORRHEA, NAAT (test code = 33816) NEGATIVE CHLAMYDIA, NAAT (test code = 28804) NEGATIVE GC AND CHLAMYDIA, AMPLIFIED, [id number] 00:00:00 Test Item Value Reference Range Interpretation Comments GONORRHEA, NAAT (test code = 13444) NEGATIVE CHLAMYDIA, NAAT (test code = 36704) NEGATIVE VAGINAL PATHOGENS DNA [id number] 00:00:00 Test Item Value Reference Range Interpretation Comments RONNA SPECIES (test code = ) NEGATIVE G. VAGINALIS (test code = ) POSITIVE T. VAGINALIS (test code = ) NEGATIVE VAGINAL PATHOGENS DNA [id number] 00:00:00 Test Item Value Reference Range Interpretation Comments RONNA SPECIES (test code = ) NEGATIVE G. VAGINALIS (test code = 22921) POSITIVE T. VAGINALIS (test code = 44300) NEGATIVE GC AND CHLAMYDIA, AMPLIFIED, [id number] 00:00:00 Test Item Value Reference Range Interpretation Comments GONORRHEA, NAAT (test code = 78002) NEGATIVE CHLAMYDIA, NAAT (test code = 09225) NEGATIVE HIV AB/AG COMBO RFLX [id number] 00:00:00 Test Item Value Reference Range Interpretation Comments HIV 1/2 4TH GEN, RFLX CONF (test NON-REACTIVE code = 3514) GC AND CHLAMYDIA, AMPLIFIED, [id number] 00:00:00 Test Item Value Reference Range Interpretation Comments GONORRHEA, NAAT (test code = 58551) NEGATIVE CHLAMYDIA, NAAT (test code = 95274) NEGATIVE HIV AB/AG COMBO RFLX [id number] 00:00:00 Test Item Value Reference Range Interpretation Comments HIV 1/2 4TH GEN, RFLX CONF (test NON-REACTIVE code = 3514) HIV AB/AG COMBO RFLX [id number] 00:00:00 Test Item Value Reference Range Interpretation Comments HIV 1/2 4TH GEN, RFLX CONF (test NON-REACTIVE code = 3514) [id number] 00:00:00 Test Item Value Reference Range Interpretation Comments RPR RESULT (test code = NON-REACTIVE 3501) RPR TITER (test code = 3500) NOT INDIC. TITER [id number] 00:00:00 Test Item Value Reference Range Interpretation Comments RPR RESULT (test code = NON-REACTIVE 3501) RPR TITER (test code = 3500) NOT INDIC. TITER [id number] 00:00:00 Test Item Value Reference Range Interpretation Comments RPR RESULT (test code = NON-REACTIVE 3501) RPR TITER (test code = 3500) NOT INDIC. TITER HIV AB/AG COMBO RFLX [id number] 00:00:00 Test Item Value Reference Range Interpretation Comments HIV 1/2 4TH GEN, RFLX CONF (test NON-REACTIVE code = 3514) [id number] 00:00:00 Test Item Value Reference Range Interpretation Comments RPR RESULT (test code = NON-REACTIVE 3501) RPR TITER (test code = 3500) NOT INDIC. TITER [id number] 00:00:00 Test Item Value Reference Range Interpretation Comments RPR RESULT (test code = NON-REACTIVE 3501) RPR TITER (test code = 3500) NOT INDIC. TITER [id number] 00:00:00 Test Item Value Reference Range Interpretation Comments RPR RESULT (test code = NON-REACTIVE 3501) RPR TITER (test code = 3500) NOT INDIC. TITER [id number] 00:00:00 Test Item Value Reference Range Interpretation Comments TESTOSTERONE (test code = 2830) 34 NG/DL [id number] 00:00:00 Test Item Value Reference Range Interpretation Comments TESTOSTERONE (test code = 2830) 34 NG/DL [id number] 00:00:00 Test Item Value Reference Range Interpretation Comments PROGESTERONE (test code = 2790) 5.24 NG/ML [id number] 00:00:00 Test Item Value Reference Range Interpretation Comments PROGESTERONE (test code = 2790) 5.24 NG/ML HEMOGLOBIN [id number] 00:00:00 Test Item Value Reference Range Interpretation Comments HEMOGLOBIN A1c (test code = 38371) 5.4 % HEMOGLOBIN [id number] 00:00:00 Test Item Value Reference Range Interpretation Comments HEMOGLOBIN A1c (test code = 87984) 5.4 % HEMOGLOBIN [id number] 00:00:00 Test Item Value Reference Range Interpretation Comments HEMOGLOBIN A1c (test code = 89658) 5.4 % LIPID [id number] 00:00:00 Test Item Value Reference Range Interpretation Comments CHOLESTEROL (test code = 2210) 181 MG/DL TRIGLYCERIDES (test code = 2232) 126 MG/DL HDL CHOLESTEROL (test code = 2220) 52 MG/DL CALC LDL CHOL (test code = 2237) 106 MG/DL RISK RATIO LDL/HDL (test code = 2.04 RATIO 2238) LIPID [id number] 00:00:00 Test Item Value Reference Range Interpretation Comments CHOLESTEROL (test code = 2210) 181 MG/DL TRIGLYCERIDES (test code = 2232) 126 MG/DL HDL CHOLESTEROL (test code = 2220) 52 MG/DL CALC LDL CHOL (test code = 2237) 106 MG/DL RISK RATIO LDL/HDL (test code = 2.04 RATIO 2238) COMPREHENSIVE METABOLIC [id number] 00:00:00 Test Item Value Reference Range Interpretation Comments GLUCOSE (test code = 2217) 90 MG/DL BUN (test code = 2208) 16 MG/DL CREATININE (test code = 2214) 0.67 MG/DL eGFR AMER. (test code 137 ML/MIN/1.73 = 11081) eGFR NON- AMER. (test 118 ML/MIN/1.73 code = 49694) CALC BUN/CREAT (test code = 24 RATIO [...] code = 2219) 17 U/L COMPREHENSIVE METABOLIC [id number] 00:00:00 Test Item Value Reference Range Interpretation Comments GLUCOSE (test code = 2217) 90 MG/DL BUN (test code = 2208) 16 MG/DL CREATININE (test code = 2214) 0.67 MG/DL eGFR AMER. (test code 137 ML/MIN/1.73 = 81644) eGFR NON- AMER. (test 118 ML/MIN/1.73 code = 05839) CALC BUN/CREAT (test code = 24 RATIO 5) SODIUM (test code = 2231) 135 MEQ/L POTASSIUM (test code = 2228) 4.5 MEQ/L CHLORIDE (test code = 2215) 105 MEQ/L CARBON DIOXIDE (test code = 20 MEQ/L 2205) CALCIUM (test code = 2209) 9.5 MG/DL PROTEIN, TOTAL (test code = 7.5 G/DL 2228) ALBUMIN (test code = 2201) 4.4 G/DL CALC GLOBULIN (test code = 3.1 G/DL 2239) CALC A/G RATIO (test code = 1.4 RATIO 2233) BILIRUBIN, TOTAL (test code = 0.5 MG/DL 2206) ALKALINE PHOSPHATASE (test 41 U/L code = 2204) AST (test code = 2218) 19 U/L ALT (test code = 2219) 17 U/L [id number] 00:00:00 Test Item Value Reference Range Interpretation Comments TSH, THIRD GENERATION (test code 1.400 UIU/ML = 2821) [id number] 00:00:00 Test Item Value Reference Range Interpretation Comments TSH, THIRD GENERATION (test code 1.400 UIU/ML = 2821) [id number] 00:00:00 Test Item Value Reference Range Interpretation Comments TSH, THIRD GENERATION (test code 1.400 UIU/ML = 2821) [id number] 00:00:00 Test Item Value Reference Range Interpretation Comments PROLACTIN (test code = 2800) 27.5 NG/ML [id number] 00:00:00 Test Item Value Reference Range Interpretation Comments PROLACTIN (test code = 2800) 27.5 NG/ML FSH + LH [id number] 00:00:00 Test Item Value Reference Range Interpretation Comments FOLLICLE STIM HORMONE (test code = 3.2 IU/L 2700) LUTEINIZING HORMONE (test code = 4.8 IU/L 2776) FSH + LH [id number] 00:00:00 Test Item Value Reference Range Interpretation Comments FOLLICLE STIM HORMONE (test code = 3.2 IU/L 2700) LUTEINIZING HORMONE (test code = 4.8 IU/L 2776) DHEA [id number] 00:00:00 Test Item Value Reference Range Interpretation Comments DHEA SULFATE (test code = 4225) 406 UG/DL DHEA [id number] 00:00:00 Test Item Value Reference Range Interpretation Comments DHEA SULFATE (test code = 4225) 406 UG/DL [id number] 00:00:00 Test Item Value Reference Range Interpretation Comments TESTOSTERONE (test code = 2830) 34 NG/DL [id number] 00:00:00 Test Item Value Reference Range Interpretation Comments TESTOSTERONE (test code = 2830) 34 NG/DL [id number] 00:00:00 Test Item Value Reference Range Interpretation Comments PROGESTERONE (test code = 2790) 5.24 NG/ML [id number] 00:00:00 Test Item Value Reference Range Interpretation Comments PROGESTERONE (test code = 2790) 5.24 NG/ML HEMOGLOBIN [id number] 00:00:00 Test Item Value Reference Range Interpretation Comments HEMOGLOBIN A1c (test code = 96092) 5.4 % HEMOGLOBIN [id number] 00:00:00 Test Item Value Reference Range Interpretation Comments HEMOGLOBIN A1c (test code = 65283) 5.4 % HEMOGLOBIN [id number] 00:00:00 Test Item Value Reference Range Interpretation Comments HEMOGLOBIN A1c (test code = 45796) 5.4 % LIPID [id number] 00:00:00 Test Item Value Reference Range Interpretation Comments CHOLESTEROL (test code = 2210) 181 MG/DL TRIGLYCERIDES (test code = 2232) 126 MG/DL HDL CHOLESTEROL (test code = 2220) 52 MG/DL CALC LDL CHOL (test code = 2237) 106 MG/DL RISK RATIO LDL/HDL (test code = 2.04 RATIO 2238) LIPID [id number] 00:00:00 Test Item Value Reference Range Interpretation Comments CHOLESTEROL (test code = 2210) 181 MG/DL TRIGLYCERIDES (test code = 2232) 126 MG/DL HDL CHOLESTEROL (test code = 2220) 52 MG/DL CALC LDL CHOL (test code = 2237) 106 MG/DL RISK RATIO LDL/HDL (test code = 2.04 RATIO 2238) COMPREHENSIVE METABOLIC [id number] 00:00:00 Test Item Value Reference Range Interpretation Comments GLUCOSE (test code = 2217) 90 MG/DL BUN (test code = 2208) 16 MG/DL CREATININE (test code = 2214) 0.67 MG/DL eGFR AMER. (test code 137 ML/MIN/1.73 = 09349) eGFR NON- AMER. (test 118 ML/MIN/1.73 code = 11954) CALC BUN/CREAT (test code = 24 RATIO [...] code = 2219) 17 U/L COMPREHENSIVE METABOLIC [id number] 00:00:00 Test Item Value Reference Range Interpretation Comments GLUCOSE (test code = 2217) 90 MG/DL BUN (test code = 2208) 16 MG/DL CREATININE (test code = 2214) 0.67 MG/DL eGFR AMER. (test code 137 ML/MIN/1.73 = 64655) eGFR NON- AMER. (test 118 ML/MIN/1.73 code = 09536) CALC BUN/CREAT (test code = 24 RATIO [...] ALT (test code = 2219) 17 U/L [id number] 00:00:00 Test Item Value Reference Range Interpretation Comments TSH, THIRD GENERATION (test code 1.400 UIU/ML = 2821) [id number] 00:00:00 Test Item Value Reference Range Interpretation Comments TSH, THIRD GENERATION (test code 1.400 UIU/ML = 2821) [id number] 00:00:00 Test Item Value Reference Range Interpretation Comments TSH, THIRD GENERATION (test code 1.400 UIU/ML = 2821) [id number] 00:00:00 Test Item Value Reference Range Interpretation Comments PROLACTIN (test code = 2800) 27.5 NG/ML [id number] 00:00:00 Test Item Value Reference Range Interpretation Comments PROLACTIN (test code = 2800) 27.5 NG/ML FSH + LH [id number] 00:00:00 Test Item Value Reference Range Interpretation Comments FOLLICLE STIM HORMONE (test code = 3.2 IU/L 2700) LUTEINIZING HORMONE (test code = 4.8 IU/L 2776) FSH + LH [id number] 00:00:00 Test Item Value Reference Range Interpretation Comments FOLLICLE STIM HORMONE (test code = 3.2 IU/L 2700) LUTEINIZING HORMONE (test code = 4.8 IU/L 2776) DHEA [id number] 00:00:00 Test Item Value Reference Range Interpretation Comments DHEA SULFATE (test code = 4225) 406 UG/DL DHEA [id number] 00:00:00 Test Item Value Reference Range Interpretation Comments DHEA SULFATE (test code = 4225) 406 UG/DL [id number] 00:00:00 Test Item Value Reference Range Interpretation Comments TESTOSTERONE (test code = 2830) 34 NG/DL [id number] 00:00:00 Test Item Value Reference Range Interpretation Comments TESTOSTERONE (test code = 2830) 34 NG/DL [id number] 00:00:00 Test Item Value Reference Range Interpretation Comments PROGESTERONE (test code = 2790) 5.24 NG/ML [id number] 00:00:00 Test Item Value Reference Range Interpretation Comments PROGESTERONE (test code = 2790) 5.24 NG/ML HEMOGLOBIN [id number] 00:00:00 Test Item Value Reference Range Interpretation Comments HEMOGLOBIN A1c (test code = 93424) 5.4 % HEMOGLOBIN [id number] 00:00:00 Test Item Value Reference Range Interpretation Comments HEMOGLOBIN A1c (test code = 91405) 5.4 % HEMOGLOBIN [id number] 00:00:00 Test Item Value Reference Range Interpretation Comments HEMOGLOBIN A1c (test code = 73204) 5.4 % HEMOGLOBIN [id number] 00:00:00 Test Item Value Reference Range Interpretation Comments HEMOGLOBIN A1c (test code = 99778) 5.4 % HEMOGLOBIN [id number] 00:00:00 Test Item Value Reference Range Interpretation Comments HEMOGLOBIN A1c (test code = 68245) 5.4 % HEMOGLOBIN [id number] 00:00:00 Test Item Value Reference Range Interpretation Comments HEMOGLOBIN A1c (test code = 11744) 5.4 % LIPID [id number] 00:00:00 Test Item Value Reference Range Interpretation Comments CHOLESTEROL (test code = 2210) 181 MG/DL TRIGLYCERIDES (test code = 2232) 126 MG/DL HDL CHOLESTEROL (test code = 2220) 52 MG/DL CALC LDL CHOL (test code = 2237) 106 MG/DL RISK RATIO LDL/HDL (test code = 2.04 RATIO 2238) LIPID [id number] 00:00:00 Test Item Value Reference Range Interpretation Comments CHOLESTEROL (test code = 2210) 181 MG/DL TRIGLYCERIDES (test code = 2232) 126 MG/DL HDL CHOLESTEROL (test code = 2220) 52 MG/DL CALC LDL CHOL (test code = 2237) 106 MG/DL RISK RATIO LDL/HDL (test code = 2.04 RATIO 2238) COMPREHENSIVE METABOLIC [id number] 00:00:00 Test Item Value Reference Range Interpretation Comments GLUCOSE (test code = 2217) 90 MG/DL BUN (test code = 2208) 16 MG/DL CREATININE (test code = 2214) 0.67 MG/DL eGFR AMER. (test code 137 ML/MIN/1.73 = 32275) eGFR NON- AMER. (test 118 ML/MIN/1.73 code = 96429) CALC BUN/CREAT (test code = 24 RATIO [...] ALKALINE PHOSPHATASE (test 41 U/L code = 2203) AST (test code = 2218) 19 U/L ALT (test code = 2219) 17 U/L COMPREHENSIVE METABOLIC [id number] 00:00:00 Test Item Value Reference Range Interpretation Comments GLUCOSE (test code = 2217) 90 MG/DL BUN (test code = 2208) 16 MG/DL CREATININE (test code = 2214) 0.67 MG/DL eGFR AMER. (test code 137 ML/MIN/1.73 = 98510) eGFR NON- AMER. (test 118 ML/MIN/1.73 code = 14940) CALC BUN/CREAT (test code = 24 RATIO [...] ALT (test code = 2219) 17 U/L [id number] 00:00:00 Test Item Value Reference Range Interpretation Comments TSH, THIRD GENERATION (test code 1.400 UIU/ML = 2821) [id number] 00:00:00 Test Item Value Reference Range Interpretation Comments TSH, THIRD GENERATION (test code 1.400 UIU/ML = 2821) [id number] 00:00:00 Test Item Value Reference Range Interpretation Comments TSH, THIRD GENERATION (test code 1.400 UIU/ML = 2821) [id number] 00:00:00 Test Item Value Reference Range Interpretation Comments PROLACTIN (test code = 2800) 27.5 NG/ML [id number] 00:00:00 Test Item Value Reference Range Interpretation Comments PROLACTIN (test code = 2800) 27.5 NG/ML FSH + LH [id number] 00:00:00 Test Item Value Reference Range Interpretation Comments FOLLICLE STIM HORMONE (test code = 3.2 IU/L 2700) LUTEINIZING HORMONE (test code = 4.8 IU/L 2776) FSH + LH [id number] 00:00:00 Test Item Value Reference Range Interpretation Comments FOLLICLE STIM HORMONE (test code = 3.2 IU/L 2700) LUTEINIZING HORMONE (test code = 4.8 IU/L 2776) DHEA [id number] 00:00:00 Test Item Value Reference Range Interpretation Comments DHEA SULFATE (test code = 4225) 406 UG/DL DHEA [id number] 00:00:00 Test Item Value Reference Range Interpretation Comments DHEA SULFATE (test code = 4225) 406 UG/DL [id number] 00:00:00 Test Item Value Reference Range Interpretation Comments TESTOSTERONE (test code = 2830) 34 NG/DL [id number] 00:00:00 Test Item Value Reference Range Interpretation Comments TESTOSTERONE (test code = 2830) 34 NG/DL [id number] 00:00:00 Test Item Value Reference Range Interpretation Comments PROGESTERONE (test code = 2790) 5.24 NG/ML [id number] 00:00:00 Test Item Value Reference Range Interpretation Comments PROGESTERONE (test code = 2790) 5.24 NG/ML LIPID [id number] 00:00:00 Test Item Value Reference Range Interpretation Comments CHOLESTEROL (test code = 2210) 181 MG/DL TRIGLYCERIDES (test code = 2232) 126 MG/DL HDL CHOLESTEROL (test code = 2220) 52 MG/DL CALC LDL CHOL (test code = 2237) 106 MG/DL RISK RATIO LDL/HDL (test code = 2.04 RATIO 2238) LIPID [id number] 00:00:00 Test Item Value Reference Range Interpretation Comments CHOLESTEROL (test code = 2210) 181 MG/DL TRIGLYCERIDES (test code = 2232) 126 MG/DL HDL CHOLESTEROL (test code = 2220) 52 MG/DL CALC LDL CHOL (test code = 2237) 106 MG/DL RISK RATIO LDL/HDL (test code = 2.04 RATIO 2238) HEMOGLOBIN [id number] 00:00:00 Test Item Value Reference Range Interpretation Comments HEMOGLOBIN A1c (test code = 11404) 5.4 % HEMOGLOBIN [id number] 00:00:00 Test Item Value Reference Range Interpretation Comments HEMOGLOBIN A1c (test code = 05621) 5.4 % HEMOGLOBIN [id number] 00:00:00 Test Item Value Reference Range Interpretation Comments HEMOGLOBIN A1c (test code = 43951) 5.4 % LIPID [id number] 00:00:00 Test Item Value Reference Range Interpretation Comments CHOLESTEROL (test code = 2210) 181 MG/DL TRIGLYCERIDES (test code = 2232) 126 MG/DL HDL CHOLESTEROL (test code = 2220) 52 MG/DL CALC LDL CHOL (test code = 2237) 106 MG/DL RISK RATIO LDL/HDL (test code = 2.04 RATIO 2238) LIPID [id number] 00:00:00 Test Item Value Reference Range Interpretation Comments CHOLESTEROL (test code = 2210) 181 MG/DL TRIGLYCERIDES (test code = 2232) 126 MG/DL HDL CHOLESTEROL (test code = 2220) 52 MG/DL CALC LDL CHOL (test code = 2237) 106 MG/DL RISK RATIO LDL/HDL (test code = 2.04 RATIO 2238) COMPREHENSIVE METABOLIC [id number] 00:00:00 Test Item Value Reference Range Interpretation Comments GLUCOSE (test code = 2217) 90 MG/DL BUN (test code = 2208) 16 MG/DL CREATININE (test code = 2214) 0.67 MG/DL eGFR AMER. (test code 137 ML/MIN/1.73 = 63459) eGFR NON- AMER. (test 118 ML/MIN/1.73 code = 31126) CALC BUN/CREAT (test code = 24 RATIO [...] code = 2219) 17 U/L COMPREHENSIVE METABOLIC [id number] 00:00:00 Test Item Value Reference Range Interpretation Comments GLUCOSE (test code = 2217) 90 MG/DL BUN (test code = 2208) 16 MG/DL CREATININE (test code = 2214) 0.67 MG/DL eGFR AMER. (test code 137 ML/MIN/1.73 = 69009) eGFR NON- AMER. (test 118 ML/MIN/1.73 code = 19684) CALC BUN/CREAT (test code = 24 RATIO [...] ALT (test code = 2219) 17 U/L [id number] 00:00:00 Test Item Value Reference Range Interpretation Comments TSH, THIRD GENERATION (test code 1.400 UIU/ML = 2821) [id number] 00:00:00 Test Item Value Reference Range Interpretation Comments TSH, THIRD GENERATION (test code 1.400 UIU/ML = 2821) COMPREHENSIVE METABOLIC [id number] 00:00:00 Test Item Value Reference Range Interpretation Comments GLUCOSE (test code = 2217) 90 MG/DL BUN (test code = 2208) 16 MG/DL CREATININE (test code = 2214) 0.67 MG/DL eGFR AMER. (test code 137 ML/MIN/1.73 = 31681) eGFR NON- AMER. (test 118 ML/MIN/1.73 code = 62460) CALC BUN/CREAT (test code = 24 RATIO 2235) SODIUM (test code = 2231) 135 MEQ/L POTASSIUM (test code = 2228) 4.5 MEQ/L CHLORIDE (test code = 2215) 105 MEQ/L CARBON DIOXIDE (test code = 20 MEQ/L 6) CALCIUM (test code = 2209) 9.5 MG/DL PROTEIN, TOTAL (test code = 7.5 G/DL 2228) ALBUMIN (test code = 2201) 4.4 G/DL CALC GLOBULIN (test code = 3.1 G/DL 2240) CALC A/G RATIO (test code = 1.4 RATIO 4) BILIRUBIN, TOTAL (test code = 0.5 MG/DL 2206) ALKALINE PHOSPHATASE (test 41 U/L code = 2204) AST (test code = 2218) 19 U/L ALT (test code = 2219) 17 U/L [id number] 00:00:00 Test Item Value Reference Range Interpretation Comments TSH, THIRD GENERATION (test code 1.400 UIU/ML = 2821) [id number] 00:00:00 Test Item Value Reference Range Interpretation Comments PROLACTIN (test code = 2800) 27.5 NG/ML [id number] 00:00:00 Test Item Value Reference Range Interpretation Comments PROLACTIN (test code = 2800) 27.5 NG/ML FSH + LH [id number] 00:00:00 Test Item Value Reference Range Interpretation Comments FOLLICLE STIM HORMONE (test code = 3.2 IU/L 2700) LUTEINIZING HORMONE (test code = 4.8 IU/L 2776) FSH + LH [id number] 00:00:00 Test Item Value Reference Range Interpretation Comments FOLLICLE STIM HORMONE (test code = 3.2 IU/L 2700) LUTEINIZING HORMONE (test code = 4.8 IU/L 2776) DHEA [id number] 00:00:00 Test Item Value Reference Range Interpretation Comments DHEA SULFATE (test code = 4225) 406 UG/DL DHEA [id number] 00:00:00 Test Item Value Reference Range Interpretation Comments DHEA SULFATE (test code = 4225) 406 UG/DL [id number] 00:00:00 Test Item Value Reference Range Interpretation Comments TESTOSTERONE (test code = 2830) 34 NG/DL [id number] 00:00:00 Test Item Value Reference Range Interpretation Comments TESTOSTERONE (test code = 2830) 34 NG/DL [id number] 00:00:00 Test Item Value Reference Range Interpretation Comments PROGESTERONE (test code = 2790) 5.24 NG/ML [id number] 00:00:00 Test Item Value Reference Range Interpretation Comments PROGESTERONE (test code = 2790) 5.24 NG/ML COMPREHENSIVE METABOLIC [id number] 00:00:00 Test Item Value Reference Range Interpretation Comments GLUCOSE (test code = 2217) 90 MG/DL BUN (test code = 2208) 16 MG/DL CREATININE (test code = 2214) 0.67 MG/DL eGFR AMER. (test code 137 ML/MIN/1.73 = 67005) eGFR NON- AMER. (test 118 ML/MIN/1.73 code = 58546) CALC BUN/CREAT (test code = 24 RATIO 2235) SODIUM (test code = 2231) 135 MEQ/L POTASSIUM (test code = 2228) 4.5 MEQ/L CHLORIDE (test code = 2215) 105 MEQ/L CARBON DIOXIDE (test code = 20 MEQ/L 6) CALCIUM (test code = 2209) 9.5 MG/DL [...] ALT (test code = 2219) 17 U/L [id number] 00:00:00 Test Item Value Reference Range Interpretation Comments TSH, THIRD GENERATION (test code 1.400 UIU/ML = 2821) [id number] 00:00:00 Test Item Value Reference Range Interpretation Comments TSH, THIRD GENERATION (test code 1.400 UIU/ML = 2821) [id number] 00:00:00 Test Item Value Reference Range Interpretation Comments TSH, THIRD GENERATION (test code 1.400 UIU/ML = 2821) [id number] 00:00:00 Test Item Value Reference Range Interpretation Comments PROLACTIN (test code = 2800) 27.5 NG/ML [id number] 00:00:00 Test Item Value Reference Range Interpretation Comments PROLACTIN (test code = 2800) 27.5 NG/ML FSH + LH [id number] 00:00:00 Test Item Value Reference Range Interpretation Comments FOLLICLE STIM HORMONE (test code = 3.2 IU/L 2700) LUTEINIZING HORMONE (test code = 4.8 IU/L 2776) FSH + LH [id number] 00:00:00 Test Item Value Reference Range Interpretation Comments FOLLICLE STIM HORMONE (test code = 3.2 IU/L 2700) LUTEINIZING HORMONE (test code = 4.8 IU/L 2776) DHEA [id number] 00:00:00 Test Item Value Reference Range Interpretation Comments DHEA SULFATE (test code = 4225) 406 UG/DL DHEA [id number] 00:00:00 Test Item Value Reference Range Interpretation Comments DHEA SULFATE (test code = 4225) 406 UG/DL VAGINAL PATHOGENS DNA [id number] 00:00:00 Test Item Value Reference Range Interpretation Comments RONNA SPECIES (test code = ) NEGATIVE G. VAGINALIS (test code = ) POSITIVE T. VAGINALIS (test code = ) NEGATIVE VAGINAL PATHOGENS DNA [id number] 00:00:00 Test Item Value Reference Range Interpretation Comments RONNA SPECIES (test code = 37372) NEGATIVE G. VAGINALIS (test code = 50409) POSITIVE T. VAGINALIS (test code = 43259) NEGATIVE VAGINAL PATHOGENS DNA [id number] 00:00:00 Test Item Value Reference Range Interpretation Comments RONNA SPECIES (test code = 82481) NEGATIVE G. VAGINALIS (test code = 73086) POSITIVE T. VAGINALIS (test code = 64222) NEGATIVE VAGINAL PATHOGENS DNA [id number] 00:00:00 Test Item Value Reference Range Interpretation Comments RONNA SPECIES (test code = 95103) NEGATIVE G. VAGINALIS (test code = 39717) POSITIVE T. VAGINALIS (test code = 06134) NEGATIVE VAGINAL PATHOGENS DNA [id number] 00:00:00 Test Item Value Reference Range Interpretation Comments RONNA SPECIES (test code = 14775) NEGATIVE G. VAGINALIS (test code = 19910) POSITIVE T. VAGINALIS (test code = 67419) NEGATIVE VAGINAL PATHOGENS DNA [id number] 00:00:00 Test Item Value Reference Range Interpretation Comments RONNA SPECIES (test code = 98473) NEGATIVE G. VAGINALIS (test code = 50754) POSITIVE T. VAGINALIS (test code = 30882) NEGATIVE VAGINAL PATHOGENS DNA [id number] 00:00:00 Test Item Value Reference Range Interpretation Comments RONNA SPECIES (test code = 40567) NEGATIVE G. VAGINALIS (test code = 40746) POSITIVE T. VAGINALIS (test code = 65962) NEGATIVE VAGINAL PATHOGENS DNA [id number] 00:00:00 Test Item Value Reference Range Interpretation Comments RONNA SPECIES (test code = 08044) NEGATIVE G. VAGINALIS (test code = 12914) POSITIVE T. VAGINALIS (test code = 05312) NEGATIVE VAGINAL PATHOGENS DNA [id number] 00:00:00 Test Item Value Reference Range Interpretation Comments RONNA SPECIES (test code = 33152) NEGATIVE G. VAGINALIS (test code = 11175) POSITIVE T. VAGINALIS (test code = 34732) NEGATIVE VAGINAL PATHOGENS DNA [id number] 00:00:00 Test Item Value Reference Range Interpretation Comments RONNA SPECIES (test code = 66173) NEGATIVE G. VAGINALIS (test code = 12429) POSITIVE T. VAGINALIS (test code = 30925) NEGATIVE VAGINAL PATHOGENS DNA [id number] 00:00:00 Test Item Value Reference Range Interpretation Comments RONNA SPECIES (test code = 05239) NEGATIVE G. VAGINALIS (test code = 01493) POSITIVE T. VAGINALIS (test code = 65094) NEGATIVE VAGINAL PATHOGENS DNA [id number] 00:00:00 Test Item Value Reference Range Interpretation Comments RONNA SPECIES (test code = 47985) NEGATIVE G. VAGINALIS (test code = 34525) POSITIVE T. VAGINALIS (test code = 54051) NEGATIVE VAGINAL PATHOGENS DNA [id number] 00:00:00 Test Item Value Reference Range Interpretation Comments RONNA SPECIES (test code = 67292) NEGATIVE G. VAGINALIS (test code = 27250) POSITIVE T. VAGINALIS (test code = 90326) NEGATIVE VAGINAL PATHOGENS DNA [id number] 00:00:00 Test Item Value Reference Range Interpretation Comments RONNA SPECIES (test code = 29324) NEGATIVE G. VAGINALIS (test code = 54651) POSITIVE T. VAGINALIS (test code = 81197) NEGATIVE VAGINAL PATHOGENS DNA [id number] 00:00:00 Test Item Value Reference Range Interpretation Comments RONNA SPECIES (test code = 29377) NEGATIVE G. VAGINALIS (test code = 83879) POSITIVE T. VAGINALIS (test code = 22581) NEGATIVE VAGINAL PATHOGENS DNA [id number] 00:00:00 Test Item Value Reference Range Interpretation Comments RONNA SPECIES (test code = 86752) NEGATIVE G. VAGINALIS (test code = 04561) POSITIVE T. VAGINALIS (test code = 69072) NEGATIVE VAGINAL PATHOGENS DNA [id number] 00:00:00 Test Item Value Reference Range Interpretation Comments RONNA SPECIES (test code = 24259) NEGATIVE G. VAGINALIS (test code = 36939) POSITIVE T. VAGINALIS (test code = 19617) NEGATIVE VAGINAL PATHOGENS DNA [id number] 00:00:00 Test Item Value Reference Range Interpretation Comments RONNA SPECIES (test code = 87638) NEGATIVE G. VAGINALIS (test code = 89295) POSITIVE T. VAGINALIS (test code = 48687) NEGATIVE VAGINAL PATHOGENS DNA [id number] 00:00:00 Test Item Value Reference Range Interpretation Comments RONNA SPECIES (test code = 64298) NEGATIVE G. VAGINALIS (test code = 96480) POSITIVE T. VAGINALIS (test code = 03024) NEGATIVE VAGINAL PATHOGENS DNA [id number] 00:00:00 Test Item Value Reference Range Interpretation Comments RONNA SPECIES (test code = ) NEGATIVE G. VAGINALIS (test code = ) POSITIVE T. VAGINALIS (test code = ) NEGATIVE CBC W/AUTO [id number] 00:00:00 Test Item Value Reference Range Interpretation [...] code = 1015) 314 K/UL CBC W/AUTO [id number] 00:00:00 Test Item Value Reference Range Interpretation [...] code = 1015) 314 K/UL CBC W/AUTO [id number] 00:00:00 Test Item Value Reference Range Interpretation [...] (test code = 1015) 314 K/UL LIPID [id number] 00:00:00 Test Item Value Reference Range Interpretation Comments CHOLESTEROL (test code = 2210) 202 MG/DL TRIGLYCERIDES (test code = 2232) 169 MG/DL HDL CHOLESTEROL (test code = 2220) 62 MG/DL CALC LDL CHOL (test code = 2237) 111 MG/DL RISK RATIO LDL/HDL (test code = 1.79 RATIO 2238) LIPID [id number] 00:00:00 Test Item Value Reference Range Interpretation Comments CHOLESTEROL (test code = 2210) 202 MG/DL TRIGLYCERIDES (test code = 2232) 169 MG/DL HDL CHOLESTEROL (test code = 2220) 62 MG/DL CALC LDL CHOL (test code = 2237) 111 MG/DL RISK RATIO LDL/HDL (test code = 1.79 RATIO 2238) COMPREHENSIVE METABOLIC [id number] 00:00:00 Test Item Value Reference Range Interpretation Comments GLUCOSE (test code = 2217) 88 MG/DL BUN (test code = 2208) 20 MG/DL CREATININE (test code = 2214) 0.98 MG/DL eGFR AMER. (test code 90 ML/MIN/1.73 = 08731) eGFR NON- AMER. (test 77 ML/MIN/1.73 code = 33964) CALC BUN/CREAT (test code = 20 RATIO [...] code = 2219) 13 U/L COMPREHENSIVE METABOLIC [id number] 00:00:00 Test Item Value Reference Range Interpretation Comments GLUCOSE (test code = 2217) 88 MG/DL BUN (test code = 2208) 20 MG/DL CREATININE (test code = 2214) 0.98 MG/DL eGFR AMER. (test code 90 ML/MIN/1.73 = 10631) eGFR NON- AMER. (test 77 ML/MIN/1.73 code = 83072) CALC BUN/CREAT (test code = 20 RATIO [...] ALT (test code = 2219) 13 U/L [id number] 00:00:00 Test Item Value Reference Range Interpretation Comments TSH, THIRD GENERATION (test code 0.587 UIU/ML = 2821) [id number] 00:00:00 Test Item Value Reference Range Interpretation Comments TSH, THIRD GENERATION (test code 0.587 UIU/ML = 2821) [id number] 00:00:00 Test Item Value Reference Range Interpretation Comments TSH, THIRD GENERATION (test code 0.587 UIU/ML = 2821) CBC W/AUTO [id number] 00:00:00 Test Item Value Reference Range Interpretation [...] code = 1015) 314 K/UL CBC W/AUTO [id number] 00:00:00 Test Item Value Reference Range Interpretation [...] code = 1015) 314 K/UL CBC W/AUTO [id number] 00:00:00 Test Item Value Reference Range Interpretation [...] (test code = 1015) 314 K/UL LIPID [id number] 00:00:00 Test Item Value Reference Range Interpretation Comments CHOLESTEROL (test code = 2210) 202 MG/DL TRIGLYCERIDES (test code = 2232) 169 MG/DL HDL CHOLESTEROL (test code = 2220) 62 MG/DL CALC LDL CHOL (test code = 2237) 111 MG/DL RISK RATIO LDL/HDL (test code = 1.79 RATIO 2238) LIPID [id number] 00:00:00 Test Item Value Reference Range Interpretation Comments CHOLESTEROL (test code = 2210) 202 MG/DL TRIGLYCERIDES (test code = 2232) 169 MG/DL HDL CHOLESTEROL (test code = 2220) 62 MG/DL CALC LDL CHOL (test code = 2237) 111 MG/DL RISK RATIO LDL/HDL (test code = 1.79 RATIO 2238) COMPREHENSIVE METABOLIC [id number] 00:00:00 Test Item Value Reference Range Interpretation Comments GLUCOSE (test code = 2217) 88 MG/DL BUN (test code = 2208) 20 MG/DL CREATININE (test code = 2214) 0.98 MG/DL eGFR AMER. (test code 90 ML/MIN/1.73 = 99859) eGFR NON- AMER. (test 77 ML/MIN/1.73 code = 68617) CALC BUN/CREAT (test code = 20 RATIO [...] code = 2219) 13 U/L COMPREHENSIVE METABOLIC [id number] 00:00:00 Test Item Value Reference Range Interpretation Comments GLUCOSE (test code = 2217) 88 MG/DL BUN (test code = 2208) 20 MG/DL CREATININE (test code = 2214) 0.98 MG/DL eGFR AMER. (test code 90 ML/MIN/1.73 = 86192) eGFR NON- AMER. (test 77 ML/MIN/1.73 code = 21754) CALC BUN/CREAT (test code = 20 RATIO [...] ALT (test code = 2219) 13 U/L [id number] 00:00:00 Test Item Value Reference Range Interpretation Comments TSH, THIRD GENERATION (test code 0.587 UIU/ML = 2821) [id number] 00:00:00 Test Item Value Reference Range Interpretation Comments TSH, THIRD GENERATION (test code 0.587 UIU/ML = 2821) [id number] 00:00:00 Test Item Value Reference Range Interpretation Comments TSH, THIRD GENERATION (test code 0.587 UIU/ML = 2821) CBC W/AUTO [id number] 00:00:00 Test Item Value Reference Range Interpretation [...] code = 1015) 314 K/UL CBC W/AUTO [id number] 00:00:00 Test Item Value Reference Range Interpretation [...] code = 1015) 314 K/UL CBC W/AUTO [id number] 00:00:00 Test Item Value Reference Range Interpretation [...] code = 1015) 314 K/UL CBC W/AUTO [id number] 00:00:00 Test Item Value Reference Range Interpretation [...] (test code = 1015) 314 K/UL LIPID [id number] 00:00:00 Test Item Value Reference Range Interpretation Comments CHOLESTEROL (test code = 2210) 202 MG/DL TRIGLYCERIDES (test code = 2232) 169 MG/DL HDL CHOLESTEROL (test code = 2220) 62 MG/DL CALC LDL CHOL (test code = 2237) 111 MG/DL RISK RATIO LDL/HDL (test code = 1.79 RATIO 2238) LIPID [id number] 00:00:00 Test Item Value Reference Range Interpretation Comments CHOLESTEROL (test code = 2210) 202 MG/DL TRIGLYCERIDES (test code = 2232) 169 MG/DL HDL CHOLESTEROL (test code = 2220) 62 MG/DL CALC LDL CHOL (test code = 2237) 111 MG/DL RISK RATIO LDL/HDL (test code = 1.79 RATIO 2238) CBC W/AUTO [id number] 00:00:00 Test Item Value Reference Range Interpretation [...] code = 1015) 314 K/UL COMPREHENSIVE METABOLIC [id number] 00:00:00 Test Item Value Reference Range Interpretation Comments GLUCOSE (test code = 2217) 88 MG/DL BUN (test code = 2208) 20 MG/DL CREATININE (test code = 2214) 0.98 MG/DL eGFR AMER. (test code 90 ML/MIN/1.73 = 55442) eGFR NON- AMER. (test 77 ML/MIN/1.73 code = 93609) CALC BUN/CREAT (test code = 20 RATIO [...] code = 2219) 13 U/L COMPREHENSIVE METABOLIC [id number] 00:00:00 Test Item Value Reference Range Interpretation Comments GLUCOSE (test code = 2217) 88 MG/DL BUN (test code = 2208) 20 MG/DL CREATININE (test code = 2214) 0.98 MG/DL eGFR AMER. (test code 90 ML/MIN/1.73 = 04862) eGFR NON- AMER. (test 77 ML/MIN/1.73 code = 82923) CALC BUN/CREAT (test code = 20 RATIO [...] ALT (test code = 2219) 13 U/L [id number] 00:00:00 Test Item Value Reference Range Interpretation Comments TSH, THIRD GENERATION (test code 0.587 UIU/ML = 2821) [id number] 00:00:00 Test Item Value Reference Range Interpretation Comments TSH, THIRD GENERATION (test code 0.587 UIU/ML = 2821) [id number] 00:00:00 Test Item Value Reference Range Interpretation Comments TSH, THIRD GENERATION (test code 0.587 UIU/ML = 2821) CBC W/AUTO [id number] 00:00:00 Test Item Value Reference Range Interpretation [...] (test code = 1015) 314 K/UL LIPID [id number] 00:00:00 Test Item Value Reference Range Interpretation Comments CHOLESTEROL (test code = 2210) 202 MG/DL TRIGLYCERIDES (test code = 2232) 169 MG/DL HDL CHOLESTEROL (test code = 2220) 62 MG/DL CALC LDL CHOL (test code = 2237) 111 MG/DL RISK RATIO LDL/HDL (test code = 1.79 RATIO 2238) LIPID [id number] 00:00:00 Test Item Value Reference Range Interpretation Comments CHOLESTEROL (test code = 2210) 202 MG/DL TRIGLYCERIDES (test code = 2232) 169 MG/DL HDL CHOLESTEROL (test code = 2220) 62 MG/DL CALC LDL CHOL (test code = 2237) 111 MG/DL RISK RATIO LDL/HDL (test code = 1.79 RATIO 2238) CBC W/AUTO [id number] 00:00:00 Test Item Value Reference Range Interpretation [...] code = 1015) 314 K/UL CBC W/AUTO [id number] 00:00:00 Test Item Value Reference Range Interpretation [...] code = 1015) 314 K/UL CBC W/AUTO [id number] 00:00:00 Test Item Value Reference Range Interpretation [...] (test code = 1015) 314 K/UL LIPID [id number] 00:00:00 Test Item Value Reference Range Interpretation Comments CHOLESTEROL (test code = 2210) 202 MG/DL TRIGLYCERIDES (test code = 2232) 169 MG/DL HDL CHOLESTEROL (test code = 2220) 62 MG/DL CALC LDL CHOL (test code = 2237) 111 MG/DL RISK RATIO LDL/HDL (test code = 1.79 RATIO 2238) LIPID [id number] 00:00:00 Test Item Value Reference Range Interpretation Comments CHOLESTEROL (test code = 2210) 202 MG/DL TRIGLYCERIDES (test code = 2232) 169 MG/DL HDL CHOLESTEROL (test code = 2220) 62 MG/DL CALC LDL CHOL (test code = 2237) 111 MG/DL RISK RATIO LDL/HDL (test code = 1.79 RATIO 2238) COMPREHENSIVE METABOLIC [id number] 00:00:00 Test Item Value Reference Range Interpretation Comments GLUCOSE (test code = 2217) 88 MG/DL BUN (test code = 2208) 20 MG/DL CREATININE (test code = 2214) 0.98 MG/DL eGFR AMER. (test code 90 ML/MIN/1.73 = 03979) eGFR NON- AMER. (test 77 ML/MIN/1.73 code = 97592) CALC BUN/CREAT (test code = 20 RATIO [...] code = 2219) 13 U/L COMPREHENSIVE METABOLIC [id number] 00:00:00 Test Item Value Reference Range Interpretation Comments GLUCOSE (test code = 2217) 88 MG/DL BUN (test code = 2208) 20 MG/DL CREATININE (test code = 2214) 0.98 MG/DL eGFR AMER. (test code 90 ML/MIN/1.73 = 76280) eGFR NON- AMER. (test 77 ML/MIN/1.73 code = 94533) CALC BUN/CREAT (test code = 20 RATIO [...] code = 2219) 13 U/L COMPREHENSIVE METABOLIC [id number] 00:00:00 Test Item Value Reference Range Interpretation Comments GLUCOSE (test code = 2217) 88 MG/DL BUN (test code = 2208) 20 MG/DL CREATININE (test code = 2214) 0.98 MG/DL eGFR AMER. (test code 90 ML/MIN/1.73 = 25634) eGFR NON- AMER. (test 77 ML/MIN/1.73 code = 23676) CALC BUN/CREAT (test code = 20 RATIO [...] ALT (test code = 2219) 13 U/L [id number] 00:00:00 Test Item Value Reference Range Interpretation Comments TSH, THIRD GENERATION (test code 0.587 UIU/ML = 2821) [id number] 00:00:00 Test Item Value Reference Range Interpretation Comments TSH, THIRD GENERATION (test code 0.587 UIU/ML = 2821) [id number] 00:00:00 Test Item Value Reference Range Interpretation Comments TSH, THIRD GENERATION (test code 0.587 UIU/ML = 2821) COMPREHENSIVE METABOLIC [id number] 00:00:00 Test Item Value Reference Range Interpretation Comments GLUCOSE (test code = 2217) 88 MG/DL BUN (test code = 2208) 20 MG/DL CREATININE (test code = 2214) 0.98 MG/DL eGFR AMER. (test code 90 ML/MIN/1.73 = 71287) eGFR NON- AMER. (test 77 ML/MIN/1.73 code = 21119) CALC BUN/CREAT (test code = 20 RATIO [...] ALT (test code = 2219) 13 U/L [id number] 00:00:00 Test Item Value Reference Range Interpretation Comments TSH, THIRD GENERATION (test code 0.587 UIU/ML = 2821) [id number] 00:00:00 Test Item Value Reference Range Interpretation Comments TSH, THIRD GENERATION (test code 0.587 UIU/ML = 2821) [id number] 00:00:00 Test Item Value Reference Range Interpretation Comments TSH, THIRD GENERATION (test code 0.587 UIU/ML = 2821) PAP TEST, THINPREP, [id number] 00:00:00 Test Item Value Reference Range Interpretation Comments SOURCE: (test code = Endocervical 8001) SLIDES: (test code = 1 8011) LMP: (test code = 10/2020 8021) SPECIMEN ADEQUACY: (NOTE) (test code = 01343) INTERPRETATION: (test NILM/NO EPITH. code = 94252) ABNORMALITY;SEE BELOW OTHER COMMENTS: (test (NOTE) code = 8081) PHARMACOGNOSIST: JUDSON Fonseca (test code = 8101) (ASCP) LOCATION: (test code (NOTE) = 84493) CPT: (test code = (NOTE) 8140) PAP TEST, THINPREP, [id number] 00:00:00 Test Item Value Reference Range Interpretation Comments SOURCE: (test code = Endocervical 8001) SLIDES: (test code = 1 8011) LMP: (test code = 10/2020 80) SPECIMEN ADEQUACY: (NOTE) (test code = 43758) INTERPRETATION: (test NILM/NO EPITH. code = 19811) ABNORMALITY;SEE BELOW OTHER COMMENTS: (test (NOTE) code = 8081) PHARMACOGNOSIST: JUDSON Fonseca (test code = 8101) (ASCP) LOCATION: (test code (NOTE) = 25495) CPT: (test code = (NOTE) 8140) PAP TEST, THINPREP, [id number] 00:00:00 Test Item Value Reference Range Interpretation Comments SOURCE: (test code = Endocervical 8001) SLIDES: (test code = 1 8011) LMP: (test code = 10/2020 80) SPECIMEN ADEQUACY: (NOTE) (test code = 53428) INTERPRETATION: (test NILM/NO EPITH. code = 80638) ABNORMALITY;SEE BELOW OTHER COMMENTS: (test (NOTE) code = 8081) PHARMACOGNOSIST: JUDSON Fonseca (test code = 8101) (ASCP) LOCATION: (test code (NOTE) = 13164) CPT: (test code = (NOTE) 8140) PAP TEST, THINPREP, [id number] 00:00:00 Test Item Value Reference Range Interpretation Comments SOURCE: (test code = Endocervical 8001) SLIDES: (test code = 1 8011) LMP: (test code = 10/2020 80) SPECIMEN ADEQUACY: (NOTE) (test code = 25883) INTERPRETATION: (test NILM/NO EPITH. code = 37650) ABNORMALITY;SEE BELOW OTHER COMMENTS: (test (NOTE) code = 8081) PHARMACOGNOSIST: JUDSON Fonseca (test code = 8101) (ASCP) LOCATION: (test code (NOTE) = 86588) CPT: (test code = (NOTE) 8140) PAP TEST, THINPREP, [id number] 00:00:00 Test Item Value Reference Range Interpretation Comments SOURCE: (test code = Endocervical 8001) SLIDES: (test code = 1 8011) LMP: (test code = 10/2020) SPECIMEN ADEQUACY: (NOTE) (test code = 45850) INTERPRETATION: (test NILM/NO EPITH. code = 97377) ABNORMALITY;SEE BELOW OTHER COMMENTS: (test (NOTE) code = 8081) PHARMACOGNOSIST: JUDSON Fonseca (test code = 8101) (ASCP) LOCATION: (test code (NOTE) = 40751) CPT: (test code = (NOTE) 8140) PAP TEST, THINPREP, [id number] 00:00:00 Test Item Value Reference Range Interpretation Comments SOURCE: (test code = Endocervical 800) SLIDES: (test code = 1 8011) LMP: (test code = 10/2020) SPECIMEN ADEQUACY: (NOTE) (test code = 40025) INTERPRETATION: (test NILM/NO EPITH. code = 46974) ABNORMALITY;SEE BELOW OTHER COMMENTS: (test (NOTE) code = 8081) PHARMACOGNOSIST: JUDSON Fonseca (test code = 8101) (ASCP) LOCATION: (test code (NOTE) = 52546) CPT: (test code = (NOTE) 8140) PAP TEST, THINPREP, [id number] 00:00:00 Test Item Value Reference Range Interpretation Comments SOURCE: (test code = Endocervical 8001) SLIDES: (test code = 1 8011) LMP: (test code = 10/2020 80) SPECIMEN ADEQUACY: (NOTE) (test code = 20071) INTERPRETATION: (test NILM/NO EPITH. code = 11471) ABNORMALITY;SEE BELOW OTHER COMMENTS: (test (NOTE) code = 8081) PHARMACOGNOSIST: JUDSON Fonseca (test code = 8101) (ASCP) LOCATION: (test code (NOTE) = 85678) CPT: (test code = (NOTE) 8140) PAP TEST, THINPREP, [id number] 00:00:00 Test Item Value Reference Range Interpretation Comments SOURCE: (test code = Endocervical 8001) SLIDES: (test code = 1 8011) LMP: (test code = 10/2020 80) SPECIMEN ADEQUACY: (NOTE) (test code = 02265) INTERPRETATION: (test NILM/NO EPITH. code = 14349) ABNORMALITY;SEE BELOW OTHER COMMENTS: (test (NOTE) code = 8081) PHARMACOGNOSIST: JUDSON Fonseca (test code = 8101) (ASCP) LOCATION: (test code (NOTE) = 51281) CPT: (test code = (NOTE) 8140) PAP TEST, THINPREP, [id number] 00:00:00 Test Item Value Reference Range Interpretation Comments SOURCE: (test code = Endocervical 800) SLIDES: (test code = 1 8011) LMP: (test code = 10/2020) SPECIMEN ADEQUACY: (NOTE) (test code = 37265) INTERPRETATION: (test NILM/NO EPITH. code = 90822) ABNORMALITY;SEE BELOW OTHER COMMENTS: (test (NOTE) code = 8081) PHARMACOGNOSIST: JUDSON Fonseca (test code = 8101) (ASCP) LOCATION: (test code (NOTE) = 55387) CPT: (test code = (NOTE) 8140) PAP TEST, THINPREP, [id number] 00:00:00 Test Item Value Reference Range Interpretation Comments SOURCE: (test code = Endocervical 800) SLIDES: (test code = 1 8011) LMP: (test code = 10/2020 80) SPECIMEN ADEQUACY: (NOTE) (test code = 21614) INTERPRETATION: (test NILM/NO EPITH. code = 35016) ABNORMALITY;SEE BELOW OTHER COMMENTS: (test (NOTE) code = 8081) PHARMACOGNOSIST: JUDSON Fonseca (test code = 8101) (ASCP) LOCATION: (test code (NOTE) = 62659) CPT: (test code = (NOTE) 8140) GC AND CHLAMYDIA AMPLIFIED, [id number] 00:00:00 Test Item Value Reference Range Interpretation Comments GONORRHEA, TMA (test code = 97215) NEGATIVE CHLAMYDIA, TMA (test code = 12282) NEGATIVE VAGINAL PATHOGENS DNA [id number] 00:00:00 Test Item Value Reference Range Interpretation Comments RONNA SPECIES (test code = ) NEGATIVE G. VAGINALIS (test code = ) POSITIVE T. VAGINALIS (test code = ) NEGATIVE GC AND CHLAMYDIA AMPLIFIED, [id number] 00:00:00 Test Item Value Reference Range Interpretation Comments GONORRHEA, TMA (test code = 41725) NEGATIVE CHLAMYDIA, TMA (test code = 07603) NEGATIVE VAGINAL PATHOGENS DNA [id number] 00:00:00 Test Item Value Reference Range Interpretation Comments RONNA SPECIES (test code = ) NEGATIVE G. VAGINALIS (test code = ) POSITIVE T. VAGINALIS (test code = ) NEGATIVE HPV HIGH RISK WITH GENOTYPE, [id number] 00:00:00 Test Item Value Reference Range Interpretation Comments HPV HIGH RISK INTERP (test code = NEGATIVE 79794) HPV 16 (test code = 27807) NEGATIVE HPV 18 (test code = 97918) NEGATIVE HPV, HR, OTHER GENOTYPES (test code NEGATIVE = 08208) HPV HIGH RISK WITH GENOTYPE, [id number] 00:00:00 Test Item Value Reference Range Interpretation Comments HPV HIGH RISK INTERP (test code = NEGATIVE 49950) HPV 16 (test code = 33325) NEGATIVE HPV 18 (test code = 96036) NEGATIVE HPV, HR, OTHER GENOTYPES (test code NEGATIVE = 10791) GC AND CHLAMYDIA AMPLIFIED, [id number] 00:00:00 Test Item Value Reference Range Interpretation Comments GONORRHEA, TMA (test code = 55460) NEGATIVE CHLAMYDIA, TMA (test code = 79889) NEGATIVE VAGINAL PATHOGENS DNA [id number] 00:00:00 Test Item Value Reference Range Interpretation Comments RONNA SPECIES (test code = ) NEGATIVE G. VAGINALIS (test code = ) POSITIVE T. VAGINALIS (test code = ) NEGATIVE GC AND CHLAMYDIA AMPLIFIED, [id number] 00:00:00 Test Item Value Reference Range Interpretation Comments GONORRHEA, TMA (test code = 15976) NEGATIVE CHLAMYDIA, TMA (test code = 84271) NEGATIVE VAGINAL PATHOGENS DNA [id number] 00:00:00 Test Item Value Reference Range Interpretation Comments RONNA SPECIES (test code = ) NEGATIVE G. VAGINALIS (test code = 68710) POSITIVE T. VAGINALIS (test code = 86926) NEGATIVE HPV HIGH RISK WITH GENOTYPE, [id number] 00:00:00 Test Item Value Reference Range Interpretation Comments HPV HIGH RISK INTERP (test code = NEGATIVE 63461) HPV 16 (test code = 21534) NEGATIVE HPV 18 (test code = 66418) NEGATIVE HPV, HR, OTHER GENOTYPES (test code NEGATIVE = 54928) HPV HIGH RISK WITH GENOTYPE, [id number] 00:00:00 Test Item Value Reference Range Interpretation Comments HPV HIGH RISK INTERP (test code = NEGATIVE 78749) HPV 16 (test code = 51434) NEGATIVE HPV 18 (test code = 93074) NEGATIVE HPV, HR, OTHER GENOTYPES (test code NEGATIVE = 66230) GC AND CHLAMYDIA AMPLIFIED, [id number] 00:00:00 Test Item Value Reference Range Interpretation Comments GONORRHEA, TMA (test code = 56038) NEGATIVE CHLAMYDIA, TMA (test code = 96198) NEGATIVE VAGINAL PATHOGENS DNA [id number] 00:00:00 Test Item Value Reference Range Interpretation Comments RONNA SPECIES (test code = ) NEGATIVE G. VAGINALIS (test code = 72815) POSITIVE T. VAGINALIS (test code = 92911) NEGATIVE GC AND CHLAMYDIA AMPLIFIED, [id number] 00:00:00 Test Item Value Reference Range Interpretation Comments GONORRHEA, TMA (test code = 36129) NEGATIVE CHLAMYDIA, TMA (test code = 53448) NEGATIVE VAGINAL PATHOGENS DNA [id number] 00:00:00 Test Item Value Reference Range Interpretation Comments RONNA SPECIES (test code = ) NEGATIVE G. VAGINALIS (test code = 50925) POSITIVE T. VAGINALIS (test code = 39872) NEGATIVE GC AND CHLAMYDIA AMPLIFIED, [id number] 00:00:00 Test Item Value Reference Range Interpretation Comments GONORRHEA, TMA (test code = 34960) NEGATIVE CHLAMYDIA, TMA (test code = 29094) NEGATIVE GC AND CHLAMYDIA AMPLIFIED, [id number] 00:00:00 Test Item Value Reference Range Interpretation Comments GONORRHEA, TMA (test code = 59374) NEGATIVE CHLAMYDIA, TMA (test code = 94966) NEGATIVE VAGINAL PATHOGENS DNA [id number] 00:00:00 Test Item Value Reference Range Interpretation Comments RONNA SPECIES (test code = ) NEGATIVE G. VAGINALIS (test code = 40919) POSITIVE T. VAGINALIS (test code = ) NEGATIVE VAGINAL PATHOGENS DNA [id number] 00:00:00 Test Item Value Reference Range Interpretation Comments RONNA SPECIES (test code = ) NEGATIVE G. VAGINALIS (test code = 13168) POSITIVE T. VAGINALIS (test code = 39504) NEGATIVE HPV HIGH RISK WITH GENOTYPE, [id number] 00:00:00 Test Item Value Reference Range Interpretation Comments HPV HIGH RISK INTERP (test code = NEGATIVE 79115) HPV 16 (test code = 88076) NEGATIVE HPV 18 (test code = 75458) NEGATIVE HPV, HR, OTHER GENOTYPES (test code NEGATIVE = 22186) HPV HIGH RISK WITH GENOTYPE, [id number] 00:00:00 Test Item Value Reference Range Interpretation Comments HPV HIGH RISK INTERP (test code = NEGATIVE 98065) HPV 16 (test code = 23361) NEGATIVE HPV 18 (test code = 06545) NEGATIVE HPV, HR, OTHER GENOTYPES (test code NEGATIVE = 64608) VAGINAL PATHOGENS DNA [id number] 00:00:00 Test Item Value Reference Range Interpretation Comments RONNA SPECIES (test code = ) NEGATIVE G. VAGINALIS (test code = ) POSITIVE T. VAGINALIS (test code = ) NEGATIVE GC AND CHLAMYDIA AMPLIFIED, [id number] 00:00:00 Test Item Value Reference Range Interpretation Comments GONORRHEA, TMA (test code = 73372) NEGATIVE CHLAMYDIA, TMA (test code = 45267) NEGATIVE GC AND CHLAMYDIA AMPLIFIED, [id number] 00:00:00 Test Item Value Reference Range Interpretation Comments GONORRHEA, TMA (test code = 83247) NEGATIVE CHLAMYDIA, TMA (test code = 08420) NEGATIVE VAGINAL PATHOGENS DNA [id number] 00:00:00 Test Item Value Reference Range Interpretation Comments RONNA SPECIES (test code = ) NEGATIVE G. VAGINALIS (test code = 95303) POSITIVE T. VAGINALIS (test code = 51841) NEGATIVE HPV HIGH RISK WITH GENOTYPE, [id number] 00:00:00 Test Item Value Reference Range Interpretation Comments HPV HIGH RISK INTERP (test code = NEGATIVE 59091) HPV 16 (test code = 89618) NEGATIVE HPV 18 (test code = 36329) NEGATIVE HPV, HR, OTHER GENOTYPES (test code NEGATIVE = 74628) HPV HIGH RISK WITH GENOTYPE, [id number] 00:00:00 Test Item Value Reference Range Interpretation Comments HPV HIGH RISK INTERP (test code = NEGATIVE 10380) HPV 16 (test code = 59293) NEGATIVE HPV 18 (test code = 52092) NEGATIVE HPV, HR, OTHER GENOTYPES (test code NEGATIVE = 06034) HPV HIGH RISK WITH GENOTYPE, [id number] 00:00:00 Test Item Value Reference Range Interpretation Comments HPV HIGH RISK INTERP (test code = NEGATIVE 73744) HPV 16 (test code = 63217) NEGATIVE HPV 18 (test code = 04293) NEGATIVE HPV, HR, OTHER GENOTYPES (test code NEGATIVE = 44298) HPV HIGH RISK WITH GENOTYPE, [id number] 00:00:00 Test Item Value Reference Range Interpretation Comments HPV HIGH RISK INTERP (test code = NEGATIVE 06531) HPV 16 (test code = 44801) NEGATIVE HPV 18 (test code = 44799) NEGATIVE HPV, HR, OTHER GENOTYPES (test code NEGATIVE = 87890)
== END ==
LOC: ER 15:39
DX: Z02.9 Encounter for administrative examinations, unspecified (principal)

== ENCOUNTER 2023-04-04 17:47 | Emergency (ER) | payer OTHER ==
--- OUTSIDE RECORDS SUMMARY | 2023-04-04 17:55 | XMS REPORT | Continuity of Care Document ---
:1990 Author Organization [facility] t Address [address] [facility] [address] [place] [address] Care Team Providers Name Role Phone Asked, No Pcp Primary Care Physician Unavailable RASHAAD MERCADO Attending Clinician Unavailable MALLORY ATKINS Attending Clinician Unavailable Mallory [...] Type Policy Number Effective Date Expiration Date S [facility] [id number] 2020 DUAL COMPLETE HMO 00:00:00 MEDICAID [facility] [id number] 2019 00:00:00 MEDICARE PART A \T\ [id number] 2011 B 00:00:00 Problems Condition Condition Condition Status Onset Resolution Last Treating Co mments Source Name Details Category Date Date Treatment Clinician Date Recurrent Recurrent Disease Active Uni vers vaginitis vaginitis 5-14 ity of 00:00: [place] 00 [facility] Abdominal Abdominal Disease Active [...] s to drug LATEX DRUG Active Hives 2018- Univers INGREDI 8-14 ity of 00:00: [place] 00 Medical [facility] MORPHINE DRUG Active Swelling 2018-0 Univer s INGREDI 8-14 ity of 00:00: [place] 00 Medical [facility] ZIPRASID DRUG Active Swelling 2018- Univer s ONE HCL INGREDI 8-14 ity of 00:00: [place] 00 Medical Branch Latex Propensi Active Hives 2019-0 Univers ty to 8-14 ity of adverse 00:00: [place] reaction 00 Medical s Branch Morphine Propensi Active Swelling Univ ers ty to 814 ity of adverse 00:00: [place] reaction 00 [facility] Nir Gaytani Active Swelling 0 Univ ers one Hcl ty to 814 ity of adverse 00:00: [place] reaction 00 [facility] NO KNOWN Drug Active Univers ALLERGIE Class ity of [facility] Social History Social Habit Start Date Stop Date Quantity Comments Source Gender identity [facility] History of tobacco Light tobacco Uni versity of use smoker [facility] Exposure to 2022-07-13 2022-07-23 Not sure University of SARS-CoV-2 (event) 00:00:00 15:04:00 [facility] Alcohol intake 2020-05-27 2020-05-27 Current drinker Metho dist 00:00:00 00:00:00 of [facility] (finding) History of Social 2020-05-27 2020-05-27 [facility]00 Hospital Alcohol Comment 2019-05-29 2019-05-29 occasional [facility] 00:00:00 00:00:00 [facility] Cigarettes smoked 2019-05-29 2019-05-29 [facility] current (pack per 00:00:00 00:00:00 Hospita l day) - Reported Tobacco use and 2019-05-29 2019-05-29 Smokeless tobacco [facility] exposure 00:00:00 00:00:00 non-user Hospital Sex Assigned At [birth year] [facility] 00:[facility] Hospital Smoking Status Start Date Stop Date Source Light tobacco smoker 2019 [facility]:00:00 [facility] daily 2019-05-29 00:00:00 [facility] Medications Ordered Filled Start Stop Current Ordering Indication Dosage Frequency Signature Comments Components Source Medication Medication Date Date Medication? Clinician (SIG) Name Name TAKE 2021-10 No TABLET 0-31 EVERY 8 00:00: HOURS 00 NEEDED TAKE 2021-10 No TABLET 0-31 EVERY 8 00:00: HOURS 00 NEEDED erythromyci 2021-10 Yes [id number] .5[in_u Place 0.5 Univers n 5 mg/gram 0-08 239834 s] Inches in i ty of (0.5 %) 00:00: both eyes [place] [facility] 00 at Medical ointment bedtime. Branch Continue until you follow up with eye doctor. erythromyci 2021-10- No [id number] .5[in_u Place 0.5 Univers n 5 mg/gram 007-23 828418 s] Inches in ity of (0.5 %) 00:00[place] 00[place] at bedtime Med ical ointment for 7 Branch days. Continue until you follow up with eye doctor. TAKE 1 2021-0 No TABLET BY 9-08 MOUTH THREE 00:00: TIMES DAILY 00 NEEDED TAKE 2021-0 No TABLET BY - MOUTH THREE 00:00: TIMES DAILY 00 NEEDED TAKE 2021-0 No TABLET BY 9-08 MOUTH THREE 00:00: TIMES DAILY 00 NEEDED TAKE 1 2021-0 No TABLET BY 9-08 MOUTH THREE 00:00: TIMES DAILY 00 NEEDED TAKE 1 2021-0 No TABLET BY 9-08 MOUTH THREE 00:00: TIMES DAILY 00 NEEDED Dose 2021-0 No Unknown 4-13 00:00: 00 Dose 2022-0 No Unknown 4-13 00:00: 00 Dose 2-0 No Unknown 4-13 00:00: 00 Dose 2-0 No Unknown 4-13 00:00: 00 Dose 2-0 No Unknown 4-13 00:00: 00 Dose 2-0 No Unknown 4-13 00:00: 00 Dose 2022-0 [...] 2021-1 No Unknown 2-20 00:00: 00 Dose 2021-1 No Unknown 2-20 00:00: 00 Dose 2021-1 No Unknown 2-20 00:00: 00 Dose 2021-1 No Unknown 2-20 00:00: 00 Dose 2021-1 No Unknown 2-20 00:00: 00 Dose 2021-1 No Unknown 2-20 00:00: 00 Dose 2021-1 No Unknown 2-20 00:00: 00 Dose 2021-1 No Unknown 2-20 00:00: 00 Dose 2021-1 No Unknown 2-20 00:00: 00 Dose 1-1 No Unknown 2-20 00:00: 00 Dose 2021-1 No Unknown 2-20 00:00: 00 Dose 2021-1 No Unknown 2-20 00:00: 00 Dose 1-1 No Unknown 2-20 00:00: 00 Dose 2021-1 No Unknown 2-20 00:00: 00 Dose 2021-1 No Unknown 2-20 00:00: 00 Dose 2021-1 No Unknown 0-12 00:00: 00 Dose 2021-1 No Unknown 0-12 00:00: 00 Dose 2021-1 No Unknown 0-12 00:00: 00 Dose 1-1 No Unknown 0-12 00:00: 00 Dose 2021-1 No Unknown 0-12 00:00: 00 Dose 1-1 No Unknown 0-12 00:00: 00 Dose 1-1 No Unknown 0-12 00:00: 00 Dose 1-1 No Unknown 0-12 00:00: 00 Dose 2021-1 No Unknown 0-12 00:00: 00 Dose 1-1 No Unknown 0-12 00:00: 00 Dose 2021-0 No Unknown 9-15 00:00: 00 Dose 1-0 No Unknown 9-15 00:00: 00 Dose 1-0 No Unknown 9-15 00:00: 00 Dose 1-0 No Unknown 9-15 00:00: 00 Dose 1-0 No Unknown 9-15 00:00: 00 Dose 1-0 No Unknown 5-17 00:00: 00 Dose 2021-0 No Unknown 5-17 00:00: 00 Dose 1-0 No Unknown 5-17 00:00: 00 Dose 1-0 No Unknown 5-17 00:00: 00 Dose 1-0 No Unknown 5-17 00:00: 00 metronidazo 1-0 No 1mg le 500 mg 5-11 tablet 00:00: 00 metronidazo 1-0 No 1mg le 500 mg 5-11 tablet 00:00: 00 Dose 1-0 No Unknown 5-11 00:00: 00 metronidazo 2021-0 No 1mg le 500 mg 5-11 tablet 00:00: 00 metronidazo 1-0 No 1mg le [...] 500 mg 5-11 tablet 00:00: 00 metronidazo 1-0 No 1mg le 500 mg 5-11 tablet 00:00: 00 Dose 1-0 No Unknown 5-11 00:00: 00 fluticasone 1-0 No 12mcg/a propionate [...] 1mg 10 mg 4-14 tablet 00:00: 00 epinephrine 2020-0 No 1(1.5 0.3 mg/0.3 3-25 [...] 300 mg 3-10 capsule 00:00: 00 clindamycin 1-0 No 1mg HCl 300 mg 3-10 capsule 00:00: 00 clindamycin 2021-0 No 1mg HCl 300 mg 3-10 capsule 00:00: 00 clindamycin 1-0 No 1mg HCl 300 mg 3-10 capsule 00:00: 00 clindamycin 1-0 No 1mg HCl 300 mg 3-10 capsule 00:00: 00 diphenhydrA 2020-1 Yes [id number] 25mg Take 1 Univers MINE 1-20 105 capsule by ity of (BENADRYL) 00:00: mouth [place] 25 mg 00 every 6 Medical capsule (six) Branch hours as needed for Allergies or Sleep. diphenhydrA 2020-1 Yes [id number] 25mg Take 1 Univers MINE 1-20 105 capsule by ity of (BENADRYL) 00:00: mouth [place] 25 mg 00 every 6 Medical capsule (six) Branch hours as needed for Allergies or Sleep. ibuprofen 2019-0 Yes [id number] 600mg Take 1 Univers 600 mg 9-23 tablet by ity of tablet 00:00: mouth [place] 00 every 6 Medical (six) Branch hours as needed for Pain (scale 4-6). ibuprofen 2019-0 Yes [id number] 600mg Take 1 Univers 600 mg 9-23 [...] mouth 3 ity of capsule 20:29: (three) [place] 53 times Medical daily as Branch needed for Itching. No known 2019-0 No No known Metho [...] 00:00:00 Moderna COVID-19 2021-06-16 Completed Vaccine 00:00:00 Kavitha COVID-19 2021-06-16 Completed Vaccine 00:00:00 Kavitha AVILAID-19 2021-06-16 Completed Vaccine 00:00:00 Kavitha COVID-19 2021-06-16 Completed Vaccine 00:00:00 Vital Signs Vital Name Observation Time Observation Value Comments Source Systolic blood 2022-07-23 20:05:00 150 mm[Hg] Univer sity of pressure [facility] Diastolic blood 2022-07-23 20:05:00 103 mm[Hg] Unive rsity of [facility] Heart rate 2022-07-23 20:05:00 82 /min [facility] Body temperature 2022-07-23 20:05:00 37.61 [place] [facility] Respiratory rate 2022-07-23 20:05:00 18 /min [facility] Body height 2022-07-23 20:05:00 160 cm [facility] Body weight 2022-07-23 20:05:00 81.647 kg [facility] BMI 2022-07-23 20:05:00 31.89 kg/m2 [facility] Oxygen saturation in 2022-07-23 20:05:00 100 /min [facility] Arterial blood by [facility] Pulse oximetry Branch BP Systolic 2022-10-06 13:36:00 [...] 2022-07-23 20:02:47 Doctor Unassigned, No Univ ersity [facility] PRACTICES Name Medical Branch CONSENT/REFUSAL FOR 2022-07-23 19:57:49 Doctor Unassigned, No Un iversity [facility] DIAGNOSIS AND TREATMENT Name Medical Branch Ekg W/ At Least 12 2021-10-04 00:00:00 [place]s W/ [place] r 09191 Us Pelvic 2021-05-14 00:00:00 Nonobstetric Complete 96995 Us Abdominal 2021-05-14 00:00:00 Complete Plan of Care Planned Activity Planned Date Details Comments Source Future Scheduled 2023-04-04 COVID-[address] [facility] Test 17:50:56 (#1) [code = COVID-19 VACCINE (#1)] Future Scheduled 2023-04-04 Scre[facility] Test 17:50:56 malignant neoplasm of cervix (procedure) [code = 711506555] Future Scheduled 2023-04-04 [facility]ENZA [facility]ACCINE [facility] 17:50:56 [code = INFLUENZA VACCINE] Future Scheduled 2023-01-15 COVID-[address] [facility] Test 10:28:45 (#1) [code = COVID-19 VACCINE (#1)] Future Scheduled 2023-01-15 [facility] Test 10:28:45 malignant neoplasm of cervix (procedure) [code = 455445788] Future Scheduled 2023-01-15 [facility] 10:28:45 [code = INFLUENZA VACCINE] Future Scheduled 2023-01-10 [facility] 16:49:24 (#1) [code = COVID-19 VACCINE (#1)] Future Scheduled 2023-01-10 [facility] Test 16:49:24 malignant neoplasm of cervix (procedure) [code = 575571036] Future Scheduled 2023-01-10 [facility] 16:49:24 [code = INFLUENZA VACCINE] Future Scheduled 2022-12-05 [facility] 08:41:12 (#1) [code = COVID-19 VACCINE (#1)] Future Scheduled 2022-12-05 [facility] Test 08:41:12 malignant neoplasm of cervix (procedure) [code = 885779650] Future Scheduled 2022-12-05 [facility] 08:41:12 [code = INFLUENZA VACCINE] Future Scheduled 2022-12-05 COVID-[address] [facility] Test 08:41:12 (#1) [code = COVID-19 VACCINE (#1)] Future Scheduled 2022-12-05 [facility] Test 08:41:12 malignant neoplasm of cervix (procedure) [code = 996470601] Future Scheduled 2022-12-05 [facility] 08:41:12 [code = INFLUENZA VACCINE] Future Scheduled 2022-10-09 COVID-[address] [facility] Test 13:43:20 (#1) [code = COVID-19 VACCINE (#1)] Future Scheduled 2022-10-09 [facility] Test 13:43:20 malignant neoplasm of cervix (procedure) [code = 169006804] Future Scheduled 2022-10-09 [facility] 13:43:20 [code = INFLUENZA VACCINE] Future Scheduled 2022-10-09 COVID-[address] [facility] Test 13:43:20 (#1) [code = COVID-19 VACCINE (#1)] Future Scheduled 2022-10-09 [facility] Test 13:43:20 malignant neoplasm of cervix (procedure) [code = 694449061] Future Scheduled 2022-10-09 [facility] 13:43:20 [code = INFLUENZA VACCINE] Future Scheduled 2022-10-09 [facility] 13:43:20 (#1) [code = COVID-19 VACCINE (#1)] Future Scheduled 2022-10-09 [facility] Test 13:43:20 malignant neoplasm of cervix (procedure) [code = 778472488] Future Scheduled 2022-10-09 [facility] 13:43:20 [code = INFLUENZA VACCINE] Future Scheduled 2022-10-09 [facility] 13:43:20 (#1) [code = COVID-19 VACCINE (#1)] Future Scheduled 2022-10-09 [facility] Test 13:43:20 malignant neoplasm of cervix (procedure) [code = 771494319] Future Scheduled 2022-10-09 [facility] 13:43:20 [code = INFLUENZA VACCINE] Future Scheduled 2022-10-02 [facility] 01:26:14 (#1) [code = COVID-19 VACCINE (#1)] Future Scheduled 2022-10-02 [facility] 01:26:14 [code = INFLUENZA VACCINE] Future Scheduled 2022-06-26 [facility] 03:02:31 VACCINES (1 of 3 - 3-dose series) [code = HEPATITIS B VACCINES (1 of 3 - 3-dose series)] Future Scheduled 2022-06-26 [facility] 03:02:31 (#1) [code = COVID-19 VACCINE (#1)] Future Scheduled 2022-06-26 [facility] Test 03:02:31 malignant neoplasm of cervix (procedure) [code = 867167703] Future Scheduled 2022-06-26 [facility] 03:02:31 [code = INFLUENZA VACCINE] Future Scheduled 2022-06-26 [facility] 03:02:31 VACCINES (1 of 3 - 3-dose series) [code = HEPATITIS B VACCINES (1 of 3 - 3-dose series)] Future Scheduled 2022-06-26 [facility] 03:02:31 (#1) [code = COVID-19 VACCINE (#1)] Future Scheduled 2022-06-26 [facility] Test 03:02:31 malignant neoplasm of cervix (procedure) [code = 798445775] Future Scheduled 2022-06-26 [facility]INE [facility] 03:02:31 [code = INFLUENZA VACCINE] Future Scheduled 2022-06-26 [facility] 03:02:31 VACCINES (1 of 3 - 3-dose series) [code = HEPATITIS B VACCINES (1 of 3 - 3-dose series)] Future Scheduled 2022-06-26 [facility] 03:02:31 (#1) [code = COVID-19 VACCINE (#1)] Future Scheduled 2022-06-26 [facility] Test 03:02:31 malignant neoplasm of cervix (procedure) [code = 606991941] Future Scheduled 2022-06-26 [facility]ZA [facility]INE [facility] 03:02:31 [code = INFLUENZA VACCINE] Future Scheduled COVID-19 [facility]INE [facility] (1) [code = COVID-19 VACCINE (1)] Future Scheduled [facility] screening (procedure) [code = 509355397] Future Scheduled [facility] Test malignant neoplasm of cervix (procedure) [code = 106259253] Future Scheduled [facility]ZA [facility] [code = INFLUENZA VACCINE] Goal Plan of Care Note [code = 90376-1] Goal Plan of Care Note [code = 47660-0] Goal Plan of Care Note [code = 87776-2] Goal Plan of Care Note [code = 87261-9] Goal Plan of Care Note [code = 93607-2] Goal Plan of Care Note [code = 00338-0] Goal Plan of Care Note [code = 74121-4] Goal Plan of Care Note [code = 26287-8] Goal Plan of Care Note [code = 77578-5] Goal Plan of Care Note [code = 52551-9] Goal Plan of Care Note [code = 14116-7] Goal Plan of Care Note [code = 49129-7] Goal Plan of Care Note [code = 49440-8] Goal Plan of Care Note [code = 72155-1] Goal Plan of Care Note [code = 05233-8] Goal Plan of Care Note [code = 80259-5] Goal Plan of Care Note [code = 48910-2] Goal Plan of Care Note [code = 38469-1] Goal Plan of Care Note [code = 36718-4] Goal Plan of Care Note [code = 05895-2] Goal Plan of Care Note [code = 34758-3] Goal Plan of Care Note [code = 00189-8] Goal Plan of Care Note [code = 58464-4] Goal Plan of Care Note [code = 91493-9] Goal Plan of Care Note [code = 77305-3] Goal Plan of Care Note [code = 19407-7] Goal Plan of Care Note [code = 08282-3] Goal Plan of Care Note [code = 28851-7] Goal Plan of Care Note [code = 17285-1] Goal Plan of Care Note [code = 18340-0] Goal Plan of Care Note [code = 28888-8] Goal Plan of Care Note [code = 12839-0] Goal Plan of Care Note [code = 61598-3] Goal Plan of Care Note [code = 29616-2] Goal Plan of Care Note [code = 33535-6] Goal Plan of Care Note [code = 59279-6] Goal Plan of Care Note [code = 07290-5] Goal Plan of Care Note [code = 87183-2] Goal Plan of Care Note [code = 91624-3] Goal Plan of Care Note [code = 58802-3] Goal Plan of Care Note [code = 86152-0] Goal Plan of Care Note [code = 38383-8] Goal Plan of Care Note [code = 95557-5] Goal Plan of Care Note [code = 11281-1] Goal Plan of Care Note [code = 49520-4] Goal Plan of Care Note [code = 61251-0] Goal Plan of Care Note [code = 23220-9] Goal Plan of Care Note [code = 55709-4] Goal Plan of Care Note [code = 55237-0] Goal Plan of Care Note [code = 71282-8] Goal Plan of Care Note [code = 69802-0] Goal Plan of Care Note [code = 01532-9] Goal Plan of Care Note [code = 79801-3] Goal Plan of Care Note [code = 09354-5] Goal Plan of Care Note [code = 82043-6] Goal Plan of Care Note [code = 39855-6] Goal Plan of Care Note [code = 74595-0] Goal Plan of Care Note [code = 36481-2] Goal Plan of Care Note [code = 05407-9] Goal Plan of Care Note [code = 30782-4] Goal Plan of Care Note [code = 72159-6] Goal Plan of Care Note [code = 94787-7] Goal Plan of Care Note [code = 80240-4] Goal Plan of Care Note [code = 87557-5] Goal Plan of Care Note [code = 83292-7] Goal Plan of Care Note [code = 14001-5] Goal Plan of Care Note [code = 31274-4] Goal Plan of Care Note [code = 41061-0] Goal Plan of Care Note [code = 87027-2] Goal Plan of Care Note [code = 56386-0] Goal Plan of Care Note [code = 48810-9] Goal Plan of Care Note [code = 65820-1] Goal Plan of Care Note [code = 22228-5] Goal Plan of Care Note [code = 34409-8] Goal Plan of Care Note [code = 46060-1] Goal Plan of Care Note [code = 39820-7] Goal Plan of Care Note [code = 50186-1] Goal Plan of Care Note [code = 97727-4] Goal Plan of Care Note [code = 30921-6] Goal Plan of Care Note [code = 04688-5] Goal Plan of Care Note [code = 59032-2] Goal Plan of Care Note [code = 89052-2] Goal Plan of Care Note [code = 74724-2] Goal Plan of Care Note [code = 00067-0] Goal Plan of Care Note [code = 59879-8] Goal Plan of Care Note [code = 84680-6] Goal Plan of Care Note [code = 04356-7] Goal Plan of Care Note [code = 45886-3] Goal Plan of Care Note [code = 03495-2] Goal Plan of Care Note [code = 89557-2] Goal Plan of Care Note [code = 86519-7] Goal Plan of Care Note [code = 62977-3] Goal Plan of Care Note [code = 79863-2] Goal Plan of Care Note [code = 76463-4] Goal Plan of Care Note [code = 76963-1] Goal Plan of Care Note [code = 23974-6] Goal Plan of Care Note [code = 36964-6] Goal Plan of Care Note [code = 76123-6] Goal Plan of Care Note [code = 39099-0] Goal Plan of Care Note [code = 07214-9] Goal Plan of Care Note [code = 45846-1] Goal Plan of Care Note [code = 50898-5] Goal Plan of Care Note [code = 21999-3] Goal Plan of Care Note [code = 27738-1] Goal Plan of Care Note [code = 09075-4] Goal Plan of Care Note [code = 73083-8] Goal Plan of Care Note [code = 05034-6] Goal Plan of Care Note [code = 33378-1] Goal Plan of Care Note [code = 60071-7] Goal Plan of Care Note [code = 91360-5] Goal Plan of Care Note [code = 41849-9] Goal Plan of Care Note [code = 73009-6] Goal Plan of Care Note [code = 12445-4] Goal Plan of Care Note [code = 88622-9] Goal Plan of Care Note [code = 44489-0] Goal Plan of Care Note [code = 39994-2] Goal Plan of Care Note [code = 91637-1] Goal Plan of Care Note [code = 57589-1] Goal Plan of Care Note [code = 19530-4] Goal Plan of Care Note [code = 24102-7] Goal Plan of Care Note [code = 87053-6] Goal Plan of Care Note [code = 86651-4] Goal Plan of Care Note [code = 59378-9] Goal Plan of Care Note [code = 36975-3] Goal Plan of Care Note [code = 68237-7] Goal Plan of Care Note [code = 67138-7] Goal Plan of Care Note [code = 39653-8] Goal Plan of Care Note [code = 60070-9] Goal Plan of Care Note [code = 36729-7] Goal Plan of Care Note [code = 74281-9] Goal Plan of Care Note [code = 49084-2] Goal Plan of Care Note [code = 40068-4] Goal Plan of Care Note [code = 53826-5] Goal Plan of Care Note [code = 26106-0] Goal Plan of Care Note [code = 24060-7] Goal Plan of Care Note [code = 81649-4] Goal Plan of Care Note [code = 64900-8] Goal Plan of Care Note [code = 28761-0] Goal Plan of Care Note [code = 18718-5] Goal Plan of Care Note [code = 25634-1] Goal Plan of Care Note [code = 08820-7] Goal Plan of Care Note [code = 17868-9] Goal Plan of Care Note [code = 70350-2] Goal Plan of Care Note [code = 49526-9] Goal Plan of Care Note [code = 01874-4] Goal Plan of Care Note [code = 74026-9] Goal Plan of Care Note [code = 73242-4] Goal Plan of Care Note [code = 23392-4] Goal Plan of Care Note [code = 40828-1] Goal Plan of Care Note [code = 42251-5] Goal Plan of Care Note [code = 84868-9] Goal Plan of Care Note [code = 45776-6] Goal Plan of Care Note [code = 68598-4] Goal Plan of Care Note [code = 32190-9] Goal Plan of Care Note [code = 91618-7] Goal Plan of Care Note [code = 82270-2] Goal Plan of Care Note [code = 16016-6] Goal Plan of Care Note [code = 60328-3] Goal Plan of Care Note [code = 03160-6] Goal Plan of Care Note [code = 55670-3] Goal Plan of Care Note [code = 78520-1] Goal Plan of Care Note [code = 09935-6] Goal Plan of Care Note [code = 33780-3] Goal Plan of Care Note [code = 84745-9] Goal Plan of Care Note [code = 01135-6] Encounters Start End Encounter Admission Attending Care Care Encounter Source Date/Time Date/Time Type Type Clinicians Facility Department ID 2021-08-14 Emergency [facility] [id number] Univers 07:02:03 ity [facility] 2021-08-14 Emergency [facility] [id number] [facility]14 Emergency [facility] [id number] Univers 06:49:26 ity [facility] 2021-08-13 Emergency [facility] [id number] [facility] 19:07:48 [facility] 2021-08-13 Emergency [facility] [id number] [facility] 16:44:18 [facility] 2023-02-23 2023-02-23 Outpatient RASHAAD MERCADO [id number] Isis 08:45:00 08:45:00 Sesapna morris 2023-01-27 2023-01-27 Outpatient [facility] SFA [id number] 023 Isra 08:48:03 08:48:03 0414 [facility] 2023-01-10 2023-01-10 Outpatient SFA SFA [id number] Isra 16:49:19 16:49:19 0328 F Ronan 2023-01-09 2023-01-09 Outpatient SFA SFA [id number] Isra 10:38:51 10:38:51 0327 F Ronan 2022-12-31 2022-12-31 Outpatient SFA SFA [id number] 023 Isra 11:05:53 11:05:53 0318 F Ronan 2022-12-052022-12-05 Outpatient SFA SFA [id number] 023 Isra 08:41:06 08:41:06 0220 F Ronan 2022-10-26 2022-10-26 Outpatient SFA SFA [id number] Isra 10:53:54 10:53:54 0111 F Ronan 2022-10-20 2022-10-20 Outpatient SFA SFA [id number] 023 Isra 18:20:52 18:20:52 0105 F Ronan 2022-10-20 2022-10-20 Outpatient [id number] 00:00:00 00:00:00 Visit 7e54-9o51 m12-0l82-6 -8dfe-cb4 dfe-cb41b9 [id number] [id number] 2022-10-06 2022-10-06 Outpatient SFA SFA [id number] 022 Isra 13:07:12 13:07:12 1222 F Ronan 2022-10-06 2022-10-06 Outpatient [id number] 00:00:00 00:00:00 Visit 3k61-2qs4 q34-8al0-g -adbf-403 dbf-65393y 69ln7ssfl d3bcfe 2022-08-09 2022-08-09 Outpatient SFA SFA [id number] 022 Isra 08:26:28 08:26:28 1025 F Ronan 2022-07-30 2022-07-30 Outpatient [id number] 00:00:00 00:00:00 Visit 922b-4d1f 22b-4d1f-8 -6y78-p8b u83-p3pk06 [id number] 2022-07-27 2022-07-27 Outpatient SFA SFA [id number] 022 Isra 13:18:03 13:18:03 1012 F Ronan 2022-07-27 2022-07-27 Outpatient [id number] [id number]-f 00:00:00 00:00:00 Visit g327-6uvo 512-4edc-b -[id number] [id number] 2022-07-23 2022-07-23 Emergency X [facility] ERT [id number] Univers 15:12:00 16:06:00 MALLORY pace [facility] 2022-07-23 2022-07-23 [facility] [id number] Univers 15:12:00 16:06:00 [id number] [id number] [place] [id number] [place] 2022-07-23 2022-07-23 Nurse CHICO Russo [id number] Univers 00:00:00 00:00:00 Triage Thelma BRAVO [id number] it [facility] [id number] [facility] [id number] [facility] 019 [address] 2022-07-04 2022-07-04 Outpatient [id number] 00:00:00 00:00:00 Visit [id number] 2021-06-29 2021-06-[address] [facility] [id number] [place] 02:44:00 02:44:00 914 [facility] [place] 2021-03-05 2021-03-05 Outpatient [facility] [id number] 210 [place] 09:41:00 09:41:[address] [facility] 2020-09-04 2020-09-04 Emergency [facility] E[facility] [id number] Univers 21:51:00 22:55:00 CYNISE sanjeev [facility] 2020-09-04 2020-09-04 Emergency [facility] ERT [id number] Univers 19:15:00 20:48:00 TRISTEN pace [facility] 2020-09-04 2020-09-04 Emergency [facility] [id number] 19:15:00 20:48:00 Tristen Olea 350.1.13.10 Banks 4.2.7.2.686 [place] [id number] 2020-09-04 2020-09-04 Emergency Schroeder, [facility] [id number] 08:40:00 11:20:00 Keaton Olea 350.1.13.10 Banks 4.2.7.2.686 [place] [id number] 2020-08-25 2020-08-25 Outpatient R JULIET, [facility] [id number] Univers 14:30:00 14:30:00 WONDIFUL ity o f [facility] 2020-08-18 2020-08-18 Laboratory Lab, [facility] [id number] 08:30:53 08:55:02 Only Fam Pob I Health 350..13.10 Adri 4.2.7.2.686 Professio [id number] nal 044 Office [address] One 2020-08-18 2020-08-18 Outpatient R DWAYNE, [facility] [id number] Univers 08:40:00 08:40:00 [facility] 2020-07-28 2020-07-28 Outpatient R JULIET, [facility] [id number] Univers 14:30:00 14:30:00 WONDIFUL ity o f [facility] 2020-02-27 2020-02-27 Outpatient R UNKNOWN, [facility] [id number] Univers 17:00:00 17:00:00 ATTENDING [facility] 2019 2019 Outpatient R UNKNOWN, [facility] [id number] Univers 19:30:00 19:30:00 ATTENDING [facility] Results Test Description Test Time Test Comments Results Result Comments Source HIV 1/2 4TH GEN, RFLX CONF 2023-01-31 02:37:11 Test Item Value Reference Range Interpretation Comme nts HIV 1/2 4TH GEN, RFLX CONF (test code = 3514) NON-REACTIVE NON-REAC TIVE CT/NG, NAAT, [id number] 19:23:24 Test Item Value Reference Range Interpretation Comments CHLAMYDIA, NAAT, NEGATIVE NEGATIVE Testing is performed with URINE (test code Benjamin AMALIA 6800/8800 = 44070) systems usingre al-time polymerase adryan n reaction (PCR) method. A negative result does not exclude low level infection , specimensamplin g error, or collection erro r. GONORRHEA, NAAT, NEGATIVE NEGATIVE Testing is performed with URINE (test code Benjamin AMALIA 6800/8800 = 89828) systems usingre al-time polymerase adryan n reaction (PCR) method. A negative result does not exclude low level infection , specimensamplin g error, or collection erro r. [facility] has important p athology staff changes e ffective 12/14/2022. New pathology staff will provide uninterrupted, excellent patient care an d clinical consultation. S ee URL: [email or web address]. UNLESS OTHE RWISE INDICATED, [facility] TEST[facility] [address] LABORATOR Y DIRECTOR: USHA ACEVEDO M.D. CLIA NUMBER [id number] CAP ACCREDITATION N O. [id number] VAGINAL PATHOGENS DNA [id number] 15:14:15 Test Item Value Reference Range Interpretation Comments RONNA SPECIES NEGATIVE NEGATIVE (test code = ) G. VAGINALIS NEGATIVE NEGATIVE (test code = ) T. VAGINALIS NEGATIVE NEGATIVE Note: The BD A ffirm VPIII (test code = Microbial Ident ification ) Testis a DNA pr obe test intended for us e in the detectionand id entification of Ronna spec ies, Gardnerellavagi nalis and Trichomonas vag inalis nucleic acid. * [facility] has important patho logy staff changes effecti ve 12/14/2022. New pathology staff will provide uninterrupted, excellent patient care an d clinical consultation. S ee URL: [email or web address]. UNLESS OTHE RWISE INDICATED, [facility]. [address] [place] [address] LABORATOR Y DIRECTOR: USHA ACEVEDO M.D. CLIA NUMBER [id number] CAP ACCREDITATION N O. [id number] RPR REFLEX TO T. PALLIDUM - [id number] 08:59:59 Test Item Value Reference Range Interpretation Comments RPR (test code = 07641) NON-REACTIVE NON-REACTIVE RPR TITER (test code = 3500) NOT INDIC. TITER NOT INDIC. CULTURE, [id number] 15:12:08SPECIMEN NUMBER: [id number] CULTURE, URINE SPECIMEN NUMBER: [id number] SPECIMEN COMMENT: URINE SOURCE:URINE REPORT STATUS: FINAL FINAL REPORT: 01/11/2023 <10,000 CFU/ML UROGENITAL CAMILO PRESENT NO COM MON PATHOGENSENVIRONMENTAL IgE PANEL WITH TOTAL [id number] 19:17:03 Test Item Value Reference Range Interpretation Comments D. PTERONYSSINUS IgE 2.20 KU/L <0.35 H (test code = 45969) D. PTERONYS. CLASS 2 H (test code = 54177) D. FARINAE IgE (test 2.24 KU/L <0.35 H code = 22911) D. FARINAE CLASS (test 2 H code = 42938) CAT EPITHELIUM IgE 0.30 KU/L <0.35 (test code = 23637) CAT EPITHELIUM CLASS 0/1 (test code = 56203) DOG DANDER IgE (test <0.10 KU/L <0.35 code = 19832) DOG DANDER CLASS (test 0 code = 85465) COCKROACH, INDONESIAN IgE 0.11 KU/L <0.35 (test code = 97767) COCKROACH, GRMN CLS 0/1 (test code = 45590) CHICKEN FEATHERS IgE <0.10 KU/L <0.35 (test code = 58623) CHICKEN FEATHER CLS 0 (test code = 10896) GOOSE FEATHERS IgE <0.10 KU/L <0.35 (test code = 25571) GOOSE FEATHERS CLASS 0 (test code = 88175) IMMUNOGLOBULIN E (IgE) 184 KU/L See_Comment [Aut omated message] (test code = 59169) The syst em which generated this result transmit denise reference range : <=219. The refe rence range was not u sed to interpret th is result as normal/abnormal . [facility] [id number] 15:06:22 Test Item Value Reference Range Interpretation Comments INTERPRETATION: (NOTE) CLASS RANGE (ku/L) (test code = 1990) INTERPRET ATION 0 <0.10 Normal, no spec ific IgE identified 0/1 0.10-0.34 Equivocal, inde terminate significance 1 0.35-0.69 Low level specific IgE 2 0.70-3.49 Moder ate level specific IgE 3 3.50-17.49 High level spec ific IgE 4 17.50-49.99 Leslie y high levels 5 50.00-99.99 o f specific IgE 6 >=100.00 ant ibodies Note: Test resu lts reflect expanded analyt ic measurable range. Allergen specific IgE values of 0.10- 0.34 kU/L (class 0/1) are of indeterminate s ignificance and may require specific clinical expert ise for interpretation. Other than peanut and pean ut components, values in this range will not be reported wit h out of range flagging. Testi ng performed on Nousco 1000 using ImmunoCAP Speci fic IgE reagents. * If Antibodies are followed by an asterisk (*) they have been developed and their performan ce characteristics determined by [facility] ([facility]). They have not b een cleared or approved by the U.S. Food and Drug Administra tion (FDA). The FDA has det ermined that such clearance or approval is not necessary. These assays are intended to be used for clinical purpos es. Analyte specific reagen ts were used. They should not be regarded as investigatio nal or for research. [facility] i s regulated under the Clini sosa Laboratory Improvement [place] ndments of 1987 (CLIA) as qualified to perform high co mplexity clinical testin g. [facility] has important patho logy staff changes effecti ve 12/14/2022. New patholo gy staff will provide uninter rupted, excellent patie nt care and clinical consul tation. See URL: [email or web address]. UNLESS OTHER VENTURA INDICATED, ALL TESTING PERFORMED AT [facility] [employer] [address] [place] [address] LABORATORY DIRE CTOR: USHA ACEVEDO M.D. CLIA NUMBER [id number] CAP ACCREDITATION N O. [id number] CULTURE, [id number] 13:58:08SPECIMEN NUMBER: [id number] CULTURE, URINE SPECIMEN NUMBER: [id number] SPECIMEN COMMENT: URINE SOURCE:URINE REPORT STATUS: FINAL ISOLATE NUMBER 1: IDENTIFICATION: 10/28/2022 <10,000 CFU/ML BETA-STREPT OCOCCUS GROUP B ADDITIONAL OBSERVATIONS: PENICILLIN AND AMPICILLIN ARE DRUGS OF CHOICE FOR TREATMENTOF B-HEMOLYTIC STREPTOCOCCAL INFECTIONS. SUSCEPTIBILITY TESTING OF PENICILLIN AND OTHER B-LACTAMS APPROVED BY THE US FOOD AND DRUG ADMINISTRATION FOR TREATMENT OF B-HEMOLYTIC STREPTOCOCCAL INFECTIONS NEED NOT BE PERFORMED ROUTINELY.CT/NG, NAAT, [id number] 13:04:23 Test Item Value Reference Range Interpretation Comments GONORRHEA, NAAT NEGATIVE NEGATIVE Testing is performed with (test code = OKCoinAS 680 83602) systems usingre al-time polymerase adryan n reaction (PCR) method. A negative result does not exclude low level infection , specimensamplin g error, or collection erro r. CHLAMYDIA, NAAT NEGATIVE NEGATIVE Testing is performed with (test code = [place] AMALIA 680 86734) systems usingre al-time polymerase adryan n reaction (PCR) method. A negative result does not exclude low level infection , specimensamplin g error, or collection erro r. VAGINAL PATHOGENS DNA [id number] 15:07:41 Test Item Value Reference Range Interpretation [...] nucleic acid. HIV 1/2 4TH GEN, RFLX [id number] 05:30:35 Test Item Value Reference Range Interpretation Comments HIV 1/2 4TH GEN, RFLX CONF (test NON-REACTIVE NON-REACTIVE code = 3514) HEPATITIS PANEL, [id number] 05:30:35 Test Item Value Reference Range Interpretation Comments HEPATITIS A IgM (test NON-REACTIVE NON-REACTIVE code = 61867) HEPATITIS B CORE IgM NON-REACTIVE NON-REACTIVE (test code = 4644) HEPATITIS B SURF AG NON-REACTIVE NON-REACTIVE (test code = 2739) HEPATITIS C ANTIBODY NON-REACTIVE NON-REACTIVE (test code = 4675) INTERPRETATION (NOTE) Hepatitis A HEPATITIS A: (test code sero logy shows no = 2552) evidence of acu te hepatitis A. INTERPRETATION (NOTE) Hepatitis B HEPATITIS B: (test code sero logy shows no = 96172) evidence of acu te hepatitis B and no indication of exposure to hepatitis B vir us in the previous yelena eight months. INTERPRETATION (NOTE) Hepatitis C HEPATITIS C: (test code sero logy shows no = 08511) evidence of exposure to hepatitisC viru s at this time. I t can take up to 12 months after exposure tothe hepatitis C vir us for antibodies to become detectab le in the blood in certain patient s. RPR REFLEX TO T. PALLIDUM - [id number] 05:11:36 Test Item Value Reference Range Interpretation Comments RPR (test code = NON-REACTIVE NON-REACTIVE 35680) RPR TITER (test NOT INDIC. NOT INDIC. UNLESS OTHE RWISE code = 3500) TITER INDICATED, ALL TESTING PERFORMED [facility]. [address] [place] [address] 4 LABORATORY DIRE CTOR: RODRIGO PISANO M.D. CLIA NUMBER [id number] [place] [id number] HEMOGLOBIN [id number] 07:47:26 Test Item Value Reference Range Interpretation Comments HEMOGLOBIN A1c (test code = 22396) 5.7 % 4.2-5.6 H CBC W/AUTO DIFF WITH [id number] 06:55:00 Test Item Value Reference Range Interpretation [...] RBCS 0.00 K/UL 0.00-0.11 (test code = 56683) TSH, THIRD [id number] 06:25:46 Test Item Value Reference Range Interpretation Comments TSH, THIRD GENERATION (test code 1.300 UIU/ML 0.400-4.100 = 2821) ALBUMIN/CREATININE RATIO, URINE, [id number] 05:38:18 Test Item Value Reference Range Interpretation Comments CREATININE, URINE, 125.4 MG/DL NOT ESTAB CONC. (test code = 2072) ALBUMIN, URINE, 0.7 MG/DL NOT ESTAB RANDOM (test code = 50917) CALC 6 MG/G <30 Note: ALBUMIN/CREAT, RND Albumin/C reatinine ratio (test code = reference inter alexa 27223) reflects ADA an d NKF guidelines. UNL ESS OTHERWISE INDIC ATED, ALL TESTING PERFORM [facility] [place] [address] [facility] [place] [address] LABORATORY DIRE CTOR: RODRIGO PISANO M.D. CLIA NUMBER [id number] [facility] [place] [id number] COMPREHENSIVE METABOLIC [id number] 04:35:41 Test Item Value Reference Range Interpretation Comments GLUCOSE (test code = 94 MG/DL 70-99 2216) BUN (test code = 9 MG/DL 6-20 2207) CREATININE (test 0.73 MG/DL 0.60-1.30 code = 2214) eGFR (2020 CKD-EPI) 113 >60 (test code = 78430) ML/MIN/1.73 CALC BUN/CREAT (test 12 RATIO 6-28 code = 2235) SODIUM (test code = 139 MEQ/L 422-124 0514) POTASSIUM (test code 3.9 MEQ/L 3.5-5.4 = [...] code = 13 U/L 5-40 2218) LIPID [id number] 04:35:41 Test Item Value Reference Range Interpretation [...] MOREINFORMATION , SEE CLIENT ANNOUNCE MENT AT [email or web address] RISK RATIO LDL/HDL 2.67 RATIO <3.22 (test code = 2238) CBC W/AUTO [id number] 00:00:00 Test Item Value Reference Range Interpretation [...] NUCLEATED RBCS (test code = 0.00 K/UL 76912) CBC W/AUTO [id number] 00:00:00 Test Item Value Reference Range Interpretation [...] NUCLEATED RBCS (test code = 0.00 K/UL 38074) CBC W/AUTO [id number] 00:00:00 Test Item Value Reference Range Interpretation [...] NUCLEATED RBCS (test code = 0.00 K/UL 82052) COMPREHENSIVE METABOLIC [id number] 00:00:00 Test Item Value Reference Range Interpretation Comments GLUCOSE (test code = 2217) 94 MG/DL BUN (test code = 2208) 9 MG/DL CREATININE (test code = 2214) 0.73 MG/DL eGFR (2020 CKD-EPI) (test 113 ML/MIN/1.73 code = 28860) CALC BUN/CREAT (test code = 12 RATIO [...] code = 2219) 13 U/L COMPREHENSIVE METABOLIC [id number] 00:00:00 Test Item Value Reference Range Interpretation Comments GLUCOSE (test code = 2217) 94 MG/DL BUN (test code = 2208) 9 MG/DL CREATININE (test code = 2214) 0.73 MG/DL eGFR (2020 CKD-EPI) (test 113 ML/MIN/1.73 code = 19730) CALC BUN/CREAT (test code = 12 RATIO [...] (test code = 2219) 13 U/L LIPID [id number] 00:00:00 Test Item Value Reference Range Interpretation Comments CHOLESTEROL (test code = 2210) 222 MG/DL TRIGLYCERIDES (test code = 2232) 272 MG/DL HDL CHOLESTEROL (test code = 2220) 49 MG/DL CALC LDL CHOL (test code = 2237) 131 MG/DL RISK RATIO LDL/HDL (test code = 2.67 RATIO 2238) LIPID [id number] 00:00:00 Test Item Value Reference Range Interpretation Comments CHOLESTEROL (test code = 2210) 222 MG/DL TRIGLYCERIDES (test code = 2232) 272 MG/DL HDL CHOLESTEROL (test code = 2220) 49 MG/DL CALC LDL CHOL (test code = 2237) 131 MG/DL RISK RATIO LDL/HDL (test code = 2.67 RATIO 2238) HEMOGLOBIN [id number] 00:00:00 Test Item Value Reference Range Interpretation Comments HEMOGLOBIN A1c (test code = 32173) 5.7 % HEMOGLOBIN [id number] 00:00:00 Test Item Value Reference Range Interpretation Comments HEMOGLOBIN A1c (test code = 24437) 5.7 % HEMOGLOBIN [id number] 00:00:00 Test Item Value Reference Range Interpretation Comments HEMOGLOBIN A1c (test code = 89210) 5.7 % TSH, THIRD [id number] 00:00:00 Test Item Value Reference Range Interpretation Comments TSH, THIRD GENERATION (test code 1.300 UIU/ML = 2821) TSH, THIRD [id number] 00:00:00 Test Item Value Reference Range Interpretation Comments TSH, THIRD GENERATION (test code 1.300 UIU/ML = 2821) TSH, THIRD [id number] 00:00:00 Test Item Value Reference Range Interpretation Comments TSH, THIRD GENERATION (test code 1.300 UIU/ML = 2821) ALBUMIN/CREATININE RATIO, RANDOM [id number] 00:00:00 Test Item Value Reference Range Interpretation Comments CREATININE, URINE, CONC. (test 125.4 MG/DL code = 2072) ALBUMIN, URINE, RANDOM (test code 0.7 MG/DL = 76805) CALC ALBUMIN/CREAT, RND (test 6 MG/G code = 88851) ALBUMIN/CREATININE RATIO, RANDOM [id number] 00:00:00 Test Item Value Reference Range Interpretation Comments CREATININE, URINE, CONC. (test 125.4 MG/DL code = 2072) ALBUMIN, URINE, RANDOM (test code 0.7 MG/DL = 27064) CALC ALBUMIN/CREAT, RND (test 6 MG/G code = 20484) CBC W/AUTO [id number] 00:00:00 Test Item Value Reference Range Interpretation [...] NUCLEATED RBCS (test code = 0.00 K/UL 79256) CBC W/AUTO [id number] 00:00:00 Test Item Value Reference Range Interpretation [...] NUCLEATED RBCS (test code = 0.00 K/UL 57379) CBC W/AUTO [id number] 00:00:00 Test Item Value Reference Range Interpretation [...] NUCLEATED RBCS (test code = 0.00 K/UL 19251) COMPREHENSIVE METABOLIC [id number] 00:00:00 Test Item Value Reference Range Interpretation Comments GLUCOSE (test code = 2217) 94 MG/DL BUN (test code = 2208) 9 MG/DL CREATININE (test code = 2214) 0.73 MG/DL eGFR (2020 CKD-EPI) (test 113 ML/MIN/1.73 code = 94377) CALC BUN/CREAT (test code = 12 RATIO [...] RATIO 223) BILIRUBIN, TOTAL (test code = 0.3 MG/DL 2206) ALKALINE PHOSPHATASE (test 53 U/L code = 2204) AST (test code = 2218) 19 U/L ALT (test code = 2219) 13 U/L COMPREHENSIVE METABOLIC [id number] 00:00:00 Test Item Value Reference Range Interpretation Comments GLUCOSE (test code = 2217) 94 MG/DL BUN (test code = 2208) 9 MG/DL CREATININE (test code = 2214) 0.73 MG/DL eGFR (2020 CKD-EPI) (test 113 ML/MIN/1.73 code = 87834) CALC BUN/CREAT (test code = 12 RATIO [...] (test code = 2219) 13 U/L LIPID [id number] 00:00:00 Test Item Value Reference Range Interpretation Comments CHOLESTEROL (test code = 2210) 222 MG/DL TRIGLYCERIDES (test code = 2232) 272 MG/DL HDL CHOLESTEROL (test code = 2220) 49 MG/DL CALC LDL CHOL (test code = 2237) 131 MG/DL RISK RATIO LDL/HDL (test code = 2.67 RATIO 2238) LIPID [id number] 00:00:00 Test Item Value Reference Range Interpretation Comments CHOLESTEROL (test code = 2210) 222 MG/DL TRIGLYCERIDES (test code = 2232) 272 MG/DL HDL CHOLESTEROL (test code = 2220) 49 MG/DL CALC LDL CHOL (test code = 2237) 131 MG/DL RISK RATIO LDL/HDL (test code = 2.67 RATIO 2238) HEMOGLOBIN [id number] 00:00:00 Test Item Value Reference Range Interpretation Comments HEMOGLOBIN A1c (test code = 90104) 5.7 % HEMOGLOBIN [id number] 00:00:00 Test Item Value Reference Range Interpretation Comments HEMOGLOBIN A1c (test code = 84139) 5.7 % HEMOGLOBIN [id number] 00:00:00 Test Item Value Reference Range Interpretation Comments HEMOGLOBIN A1c (test code = 30029) 5.7 % TSH, THIRD [id number] 00:00:00 Test Item Value Reference Range Interpretation Comments TSH, THIRD GENERATION (test code 1.300 UIU/ML = 2821) TSH, THIRD [id number] 00:00:00 Test Item Value Reference Range Interpretation Comments TSH, THIRD GENERATION (test code 1.300 UIU/ML = 2821) TSH, THIRD [id number] 00:00:00 Test Item Value Reference Range Interpretation Comments TSH, THIRD GENERATION (test code 1.300 UIU/ML = 2821) ALBUMIN/CREATININE RATIO, RANDOM [id number] 00:00:00 Test Item Value Reference Range Interpretation Comments CREATININE, URINE, CONC. (test 125.4 MG/DL code = 2072) ALBUMIN, URINE, RANDOM (test code 0.7 MG/DL = 49295) CALC ALBUMIN/CREAT, RND (test 6 MG/G code = 47774) ALBUMIN/CREATININE RATIO, RANDOM [id number] 00:00:00 Test Item Value Reference Range Interpretation Comments CREATININE, URINE, CONC. (test 125.4 MG/DL code = 2072) ALBUMIN, URINE, RANDOM (test code 0.7 MG/DL = 29209) CALC ALBUMIN/CREAT, RND (test 6 MG/G code = 55332) VAGINAL PATHOGENS DNA [id number] 14:16:13 Test Item Value Reference Range Interpretation Comments RONNA SPECIES (test NEGATIVE NEGATIVE code = ) G. VAGINALIS (test POSITIVE NEGATIVE A code = 23545) T. VAGINALIS (test NEGATIVE NEGATIVE UNLESS O THERWISE code = ) INDICATED, ALL TESTING PERFORMED [facility] [address] [place] [address] 4 LABORATORY DIRE CTOR: RODRIGO PISANO M.D. CLIA NUMBER [id number] [place] [id number] VAGINAL PATHOGENS DNA PANEL [ADDED]2021-10-05 00:00:00 Test Item Value Reference Range Interpretation Comments RONNA SPECIES (test code = 49515) NEGATIVE G. VAGINALIS (test code = 58264) POSITIVE T. VAGINALIS (test code = 38689) NEGATIVE VAGINAL PATHOGENS DNA PANEL [ADDED]2021-10-05 00:00:00 Test Item Value Reference Range Interpretation Comments RONNA SPECIES (test code = 48030) NEGATIVE G. VAGINALIS (test code = 05944) POSITIVE T. VAGINALIS (test code = 94053) NEGATIVE VAGINAL PATHOGENS DNA PANEL [ADDED]2021-10-05 00:00:00 Test Item Value Reference Range Interpretation Comments RONNA SPECIES (test code = 18609) NEGATIVE G. VAGINALIS (test code = 20945) POSITIVE T. VAGINALIS (test code = 40827) NEGATIVE VAGINAL PATHOGENS DNA PANEL [ADDED]2021-10-05 00:00:00 Test Item Value Reference Range Interpretation Comments RONNA SPECIES (test code = 42969) NEGATIVE G. VAGINALIS (test code = 40168) POSITIVE T. VAGINALIS (test code = 78079) NEGATIVE VAGINAL PATHOGENS DNA PANEL [ADDED]2021-10-05 00:00:00 Test Item Value Reference Range Interpretation Comments RONNA SPECIES (test code = 51111) NEGATIVE G. VAGINALIS (test code = 36534) POSITIVE T. VAGINALIS (test code = 79709) NEGATIVE VAGINAL PATHOGENS DNA PANEL [ADDED]2021-10-05 00:00:00 Test Item Value Reference Range Interpretation Comments RONNA SPECIES (test code = 25272) NEGATIVE G. VAGINALIS (test code = 04826) POSITIVE T. VAGINALIS (test code = 52462) NEGATIVE VAGINAL PATHOGENS DNA PANEL [ADDED]2021-10-05 00:00:00 Test Item Value Reference Range Interpretation Comments RONNA SPECIES (test code = 34069) NEGATIVE G. VAGINALIS (test code = 42639) POSITIVE T. VAGINALIS (test code = 63174) NEGATIVE VAGINAL PATHOGENS DNA PANEL [ADDED]2021-10-05 00:00:00 Test Item Value Reference Range Interpretation Comments RONNA SPECIES (test code = 51774) NEGATIVE G. VAGINALIS (test code = 58006) POSITIVE T. VAGINALIS (test code = 30126) NEGATIVE VAGINAL PATHOGENS DNA PANEL [ADDED]2021-10-05 00:00:00 Test Item Value Reference Range Interpretation Comments RONNA SPECIES (test code = 81106) NEGATIVE G. VAGINALIS (test code = ) POSITIVE T. VAGINALIS (test code = ) NEGATIVE VAGINAL PATHOGENS DNA PANEL [ADDED]2021-10-05 00:00:00 Test Item Value Reference Range Interpretation Comments RONNA SPECIES (test code = ) NEGATIVE G. VAGINALIS (test code = ) POSITIVE T. VAGINALIS (test code = ) NEGATIVE MUMPS IgG AND [id number] 00:00:00 Test Item Value Reference Range Interpretation Comments MUMPS VIRUS IgG (test code = 32.3 AU/mL 78455) MUMPS VIRUS IgM (test code = 4587) 0.35 IV MUMPS IgG AND [id number] 00:00:00 Test Item Value Reference Range Interpretation Comments MUMPS VIRUS IgG (test code = 32.3 AU/mL 37808) MUMPS VIRUS IgM (test code = 4587) 0.35 IV MUMPS IgG AND [id number] 00:00:00 Test Item Value Reference Range Interpretation Comments MUMPS VIRUS IgG (test code = 32.3 AU/mL 78640) MUMPS VIRUS IgM (test code = 4587) 0.35 IV MUMPS IgG AND [id number] 00:00:00 Test Item Value Reference Range Interpretation Comments MUMPS VIRUS IgG (test code = 32.3 AU/mL 06856) MUMPS VIRUS IgM (test code = 4587) 0.35 IV MUMPS IgG AND [id number] 00:00:00 Test Item Value Reference Range Interpretation Comments MUMPS VIRUS IgG (test code = 32.3 AU/mL 49018) MUMPS VIRUS IgM (test code = 4587) 0.35 IV MUMPS IgG AND [id number] 00:00:00 Test Item Value Reference Range Interpretation Comments MUMPS VIRUS IgG (test code = 32.3 AU/mL 01865) MUMPS VIRUS IgM (test code = 4587) 0.35 IV MUMPS IgG AND [id number] 00:00:00 Test Item Value Reference Range Interpretation Comments MUMPS VIRUS IgG (test code = 32.3 AU/mL 34906) MUMPS VIRUS IgM (test code = 4587) 0.35 IV MUMPS IgG AND [id number] 00:00:00 Test Item Value Reference Range Interpretation Comments MUMPS VIRUS IgG (test code = 32.3 AU/mL 40678) MUMPS VIRUS IgM (test code = 4587) 0.35 IV MUMPS IgG AND [id number] 00:00:00 Test Item Value Reference Range Interpretation Comments MUMPS VIRUS IgG (test code = 32.3 AU/mL 80559) MUMPS VIRUS IgM (test code = 4587) 0.35 IV MUMPS IgG AND [id number] 00:00:00 Test Item Value Reference Range Interpretation Comments MUMPS VIRUS IgG (test code = 32.3 AU/mL 06599) MUMPS VIRUS IgM (test code = 4587) 0.35 IV VARICELLA ZOSTER [id number] 00:00:00 Test Item Value Reference Range Interpretation Comments VARICELLA ZOSTER IgG (test code = >2000 INDEX 95780) VARICELLA ZOSTER [id number] 00:00:00 Test Item Value Reference Range Interpretation Comments VARICELLA ZOSTER IgG (test code = >2000 INDEX 35987) RUBEOLA IgG [id number] 00:00:00 Test Item Value Reference Range Interpretation Comments RUBEOLA IgG ANTIBODY (test code = 166.0 AU/ML 93493) RUBEOLA IgG [id number] 00:00:00 Test Item Value Reference Range Interpretation Comments RUBEOLA IgG ANTIBODY (test code = 166.0 AU/ML 78368) VARICELLA ZOSTER [id number] 00:00:00 Test Item Value Reference Range Interpretation Comments VARICELLA ZOSTER IgG (test code = >2000 INDEX 77275) VARICELLA ZOSTER [id number] 00:00:00 Test Item Value Reference Range Interpretation Comments VARICELLA ZOSTER IgG (test code = >2000 INDEX 00422) RUBEOLA IgG [id number] 00:00:00 Test Item Value Reference Range Interpretation Comments RUBEOLA IgG ANTIBODY (test code = 166.0 AU/ML 45360) RUBEOLA IgG [id number] 00:00:00 Test Item Value Reference Range Interpretation Comments RUBEOLA IgG ANTIBODY (test code = 166.0 AU/ML 26089) VARICELLA ZOSTER [id number] 00:00:00 Test Item Value Reference Range Interpretation Comments VARICELLA ZOSTER IgG (test code = >2000 INDEX 49242) VARICELLA ZOSTER [id number] 00:00:00 Test Item Value Reference Range Interpretation Comments VARICELLA ZOSTER IgG (test code = >2000 INDEX 21361) VARICELLA ZOSTER [id number] 00:00:00 Test Item Value Reference Range Interpretation Comments VARICELLA ZOSTER IgG (test code = >2000 INDEX 41205) RUBEOLA IgG [id number] 00:00:00 Test Item Value Reference Range Interpretation Comments RUBEOLA IgG ANTIBODY (test code = 166.0 AU/ML 79247) RUBEOLA IgG [id number] 00:00:00 Test Item Value Reference Range Interpretation Comments RUBEOLA IgG ANTIBODY (test code = 166.0 AU/ML 32443) VARICELLA ZOSTER [id number] 00:00:00 Test Item Value Reference Range Interpretation Comments VARICELLA ZOSTER IgG (test code = >2000 INDEX 94723) VARICELLA ZOSTER [id number] 00:00:00 Test Item Value Reference Range Interpretation Comments VARICELLA ZOSTER IgG (test code = >2000 INDEX 18326) VARICELLA ZOSTER [id number] 00:00:00 Test Item Value Reference Range Interpretation Comments VARICELLA ZOSTER IgG (test code = >2000 INDEX 22635) RUBEOLA IgG [id number] 00:00:00 Test Item Value Reference Range Interpretation Comments RUBEOLA IgG ANTIBODY (test code = 166.0 AU/ML 01791) RUBEOLA IgG [id number] 00:00:00 Test Item Value Reference Range Interpretation Comments RUBEOLA IgG ANTIBODY (test code = 166.0 AU/ML 33872) RUBEOLA IgG [id number] 00:00:00 Test Item Value Reference Range Interpretation Comments RUBEOLA IgG ANTIBODY (test code = 166.0 AU/ML 36328) RUBEOLA IgG [id number] 00:00:00 Test Item Value Reference Range Interpretation Comments RUBEOLA IgG ANTIBODY (test code = 166.0 AU/ML 26067) RUBELLA ANTIBODY [id number] 00:00:00 Test Item Value Reference Range Interpretation Comments RUBELLA ANTIBODY SCREEN (test code 247 IU/ML = 4600) RUBELLA IgG INTERP (test code = REACTIVE 68145) RUBELLA ANTIBODY [id number] 00:00:00 Test Item Value Reference Range Interpretation Comments RUBELLA ANTIBODY SCREEN (test code 247 IU/ML = 4600) RUBELLA IgG INTERP (test code = REACTIVE 73550) RUBELLA ANTIBODY [id number] 00:00:00 Test Item Value Reference Range Interpretation Comments RUBELLA ANTIBODY SCREEN (test code 247 IU/ML = 4600) RUBELLA IgG INTERP (test code = REACTIVE 19726) RUBELLA ANTIBODY [id number] 00:00:00 Test Item Value Reference Range Interpretation Comments RUBELLA ANTIBODY SCREEN (test code 247 IU/ML = 4600) RUBELLA IgG INTERP (test code = REACTIVE 39820) RUBELLA ANTIBODY [id number] 00:00:00 Test Item Value Reference Range Interpretation Comments RUBELLA ANTIBODY SCREEN (test code 247 IU/ML = 4600) RUBELLA IgG INTERP (test code = REACTIVE 72851) RUBELLA ANTIBODY [id number] 00:00:00 Test Item Value Reference Range Interpretation Comments RUBELLA ANTIBODY SCREEN (test code 247 IU/ML = 4600) RUBELLA IgG INTERP (test code = REACTIVE 35730) RUBELLA ANTIBODY [id number] 00:00:00 Test Item Value Reference Range Interpretation Comments RUBELLA ANTIBODY SCREEN (test code 247 IU/ML = 4600) RUBELLA IgG INTERP (test code = REACTIVE 53235) RUBELLA ANTIBODY [id number] 00:00:00 Test Item Value Reference Range Interpretation Comments RUBELLA ANTIBODY SCREEN (test code 247 IU/ML = 4600) RUBELLA IgG INTERP (test code = REACTIVE 95924) RUBELLA ANTIBODY [id number] 00:00:00 Test Item Value Reference Range Interpretation Comments RUBELLA ANTIBODY SCREEN (test code 247 IU/ML = 4600) RUBELLA IgG INTERP (test code = REACTIVE 66953) RUBELLA ANTIBODY [id number] 00:00:00 Test Item Value Reference Range Interpretation Comments RUBELLA ANTIBODY SCREEN (test code 247 IU/ML = 4600) RUBELLA IgG INTERP (test code = REACTIVE 87921) VAGINAL PATHOGENS DNA [id number] 00:00:00 Test Item Value Reference Range Interpretation Comments RONNA SPECIES (test code = ) NEGATIVE G. VAGINALIS (test code = 85463) POSITIVE T. VAGINALIS (test code = 35958) NEGATIVE VAGINAL PATHOGENS DNA [id number] 00:00:00 Test Item Value Reference Range Interpretation Comments RONNA SPECIES (test code = 55944) NEGATIVE G. VAGINALIS (test code = 06498) POSITIVE T. VAGINALIS (test code = 17561) NEGATIVE GC AND CHLAMYDIA, AMPLIFIED, [id number] 00:00:00 Test Item Value Reference Range Interpretation Comments GONORRHEA, NAAT (test code = 68401) NEGATIVE CHLAMYDIA, NAAT (test code = 93907) NEGATIVE GC AND CHLAMYDIA, AMPLIFIED, [id number] 00:00:00 Test Item Value Reference Range Interpretation Comments GONORRHEA, NAAT (test code = 73414) NEGATIVE CHLAMYDIA, NAAT (test code = 69025) NEGATIVE HIV AB/AG COMBO RFLX [id number] 00:00:00 Test Item Value Reference Range Interpretation Comments HIV 1/2 4TH GEN, RFLX CONF (test NON-REACTIVE code = 3514) HIV AB/AG COMBO RFLX [id number] 00:00:00 Test Item Value Reference Range Interpretation Comments HIV 1/2 4TH GEN, RFLX CONF (test NON-REACTIVE code = 3514) [id number] 00:00:00 Test Item Value Reference Range Interpretation Comments RPR RESULT (test code = NON-REACTIVE 3501) RPR TITER (test code = 3500) NOT INDIC. TITER [id number] 00:00:00 Test Item Value Reference Range Interpretation Comments RPR RESULT (test code = NON-REACTIVE 3501) RPR TITER (test code = 3500) NOT INDIC. TITER [id number] 00:00:00 Test Item Value Reference Range Interpretation Comments RPR RESULT (test code = NON-REACTIVE 3501) RPR TITER (test code = 3500) NOT INDIC. TITER VAGINAL PATHOGENS DNA [id number] 00:00:00 Test Item Value Reference Range Interpretation Comments RONNA SPECIES (test code = ) NEGATIVE G. VAGINALIS (test code = 39534) POSITIVE T. VAGINALIS (test code = 95173) NEGATIVE VAGINAL PATHOGENS DNA [id number] 00:00:00 Test Item Value Reference Range Interpretation Comments RONNA SPECIES (test code = 44528) NEGATIVE G. VAGINALIS (test code = 39494) POSITIVE T. VAGINALIS (test code = 67725) NEGATIVE GC AND CHLAMYDIA, AMPLIFIED, [id number] 00:00:00 Test Item Value Reference Range Interpretation Comments GONORRHEA, NAAT (test code = 02127) NEGATIVE CHLAMYDIA, NAAT (test code = 52773) NEGATIVE GC AND CHLAMYDIA, AMPLIFIED, [id number] 00:00:00 Test Item Value Reference Range Interpretation Comments GONORRHEA, NAAT (test code = 83333) NEGATIVE CHLAMYDIA, NAAT (test code = 68278) NEGATIVE HIV AB/AG COMBO RFLX [id number] 00:00:00 Test Item Value Reference Range Interpretation Comments HIV 1/2 4TH GEN, RFLX CONF (test NON-REACTIVE code = 3514) VAGINAL PATHOGENS DNA [id number] 00:00:00 Test Item Value Reference Range Interpretation Comments RONNA SPECIES (test code = ) NEGATIVE G. VAGINALIS (test code = 83077) POSITIVE T. VAGINALIS (test code = 58265) NEGATIVE HIV AB/AG COMBO RFLX [id number] 00:00:00 Test Item Value Reference Range Interpretation Comments HIV 1/2 4TH GEN, RFLX CONF (test NON-REACTIVE code = 3514) [id number] 00:00:00 Test Item Value Reference Range Interpretation Comments RPR RESULT (test code = NON-REACTIVE 3501) RPR TITER (test code = 3500) NOT INDIC. TITER [id number] 00:00:00 Test Item Value Reference Range Interpretation Comments RPR RESULT (test code = NON-REACTIVE 3501) RPR TITER (test code = 3500) NOT INDIC. TITER [id number] 00:00:00 Test Item Value Reference Range Interpretation Comments RPR RESULT (test code = NON-REACTIVE 3501) RPR TITER (test code = 3500) NOT INDIC. TITER VAGINAL PATHOGENS DNA [id number] 00:00:00 Test Item Value Reference Range Interpretation Comments RONNA SPECIES (test code = ) NEGATIVE G. VAGINALIS (test code = 00377) POSITIVE T. VAGINALIS (test code = 15102) NEGATIVE VAGINAL PATHOGENS DNA [id number] 00:00:00 Test Item Value Reference Range Interpretation Comments RONNA SPECIES (test code = 19550) NEGATIVE G. VAGINALIS (test code = 79148) POSITIVE T. VAGINALIS (test code = 27361) NEGATIVE VAGINAL PATHOGENS DNA [id number] 00:00:00 Test Item Value Reference Range Interpretation Comments RONNA SPECIES (test code = 77485) NEGATIVE G. VAGINALIS (test code = 36915) POSITIVE T. VAGINALIS (test code = ) NEGATIVE GC AND CHLAMYDIA, AMPLIFIED, [id number] 00:00:00 Test Item Value Reference Range Interpretation Comments GONORRHEA, NAAT (test code = 05192) NEGATIVE CHLAMYDIA, NAAT (test code = 13291) NEGATIVE GC AND CHLAMYDIA, AMPLIFIED, [id number] 00:00:00 Test Item Value Reference Range Interpretation Comments GONORRHEA, NAAT (test code = 85613) NEGATIVE CHLAMYDIA, NAAT (test code = 94488) NEGATIVE HIV AB/AG COMBO RFLX [id number] 00:00:00 Test Item Value Reference Range Interpretation Comments HIV 1/2 4TH GEN, RFLX CONF (test NON-REACTIVE code = 3514) HIV AB/AG COMBO RFLX [id number] 00:00:00 Test Item Value Reference Range Interpretation Comments HIV 1/2 4TH GEN, RFLX CONF (test NON-REACTIVE code = 3514) [id number] 00:00:00 Test Item Value Reference Range Interpretation Comments RPR RESULT (test code = NON-REACTIVE 3501) RPR TITER (test code = 3500) NOT INDIC. TITER [id number] 00:00:00 Test Item Value Reference Range Interpretation Comments RPR RESULT (test code = NON-REACTIVE 3501) RPR TITER (test code = 3500) NOT INDIC. TITER [id number] 00:00:00 Test Item Value Reference Range Interpretation Comments RPR RESULT (test code = NON-REACTIVE 3501) RPR TITER (test code = 3500) NOT INDIC. TITER GC AND CHLAMYDIA, AMPLIFIED, [id number] 00:00:00 Test Item Value Reference Range Interpretation Comments GONORRHEA, NAAT (test code = 50128) NEGATIVE CHLAMYDIA, NAAT (test code = 71311) NEGATIVE GC AND CHLAMYDIA, AMPLIFIED, [id number] 00:00:00 Test Item Value Reference Range Interpretation Comments GONORRHEA, NAAT (test code = 32093) NEGATIVE CHLAMYDIA, NAAT (test code = 36846) NEGATIVE VAGINAL PATHOGENS DNA [id number] 00:00:00 Test Item Value Reference Range Interpretation Comments RONNA SPECIES (test code = ) NEGATIVE G. VAGINALIS (test code = ) POSITIVE T. VAGINALIS (test code = ) NEGATIVE VAGINAL PATHOGENS DNA [id number] 00:00:00 Test Item Value Reference Range Interpretation Comments RONNA SPECIES (test code = ) NEGATIVE G. VAGINALIS (test code = ) POSITIVE T. VAGINALIS (test code = ) NEGATIVE GC AND CHLAMYDIA, AMPLIFIED, [id number] 00:00:00 Test Item Value Reference Range Interpretation Comments GONORRHEA, NAAT (test code = 57354) NEGATIVE CHLAMYDIA, NAAT (test code = 19329) NEGATIVE HIV AB/AG COMBO RFLX [id number] 00:00:00 Test Item Value Reference Range Interpretation Comments HIV 1/2 4TH GEN, RFLX CONF (test NON-REACTIVE code = 3514) GC AND CHLAMYDIA, AMPLIFIED, [id number] 00:00:00 Test Item Value Reference Range Interpretation Comments GONORRHEA, NAAT (test code = 07947) NEGATIVE CHLAMYDIA, NAAT (test code = 43986) NEGATIVE HIV AB/AG COMBO RFLX [id number] 00:00:00 Test Item Value Reference Range Interpretation Comments HIV 1/2 4TH GEN, RFLX CONF (test NON-REACTIVE code = 3514) HIV AB/AG COMBO RFLX [id number] 00:00:00 Test Item Value Reference Range Interpretation Comments HIV 1/2 4TH GEN, RFLX CONF (test NON-REACTIVE code = 3514) [id number] 00:00:00 Test Item Value Reference Range Interpretation Comments RPR RESULT (test code = NON-REACTIVE 3501) RPR TITER (test code = 3500) NOT INDIC. TITER [id number] 00:00:00 Test Item Value Reference Range Interpretation Comments RPR RESULT (test code = NON-REACTIVE 3501) RPR TITER (test code = 3500) NOT INDIC. TITER [id number] 00:00:00 Test Item Value Reference Range Interpretation Comments RPR RESULT (test code = NON-REACTIVE 3501) RPR TITER (test code = 3500) NOT INDIC. TITER HIV AB/AG COMBO RFLX [id number] 00:00:00 Test Item Value Reference Range Interpretation Comments HIV 1/2 4TH GEN, RFLX CONF (test NON-REACTIVE code = 3514) [id number] 00:00:00 Test Item Value Reference Range Interpretation Comments RPR RESULT (test code = NON-REACTIVE 3501) RPR TITER (test code = 3500) NOT INDIC. TITER [id number] 00:00:00 Test Item Value Reference Range Interpretation Comments RPR RESULT (test code = NON-REACTIVE 3501) RPR TITER (test code = 3500) NOT INDIC. TITER [id number] 00:00:00 Test Item Value Reference Range Interpretation Comments RPR RESULT (test code = NON-REACTIVE 3501) RPR TITER (test code = 3500) NOT INDIC. TITER [id number] 00:00:00 Test Item Value Reference Range Interpretation Comments TESTOSTERONE (test code = 2830) 34 NG/DL [id number] 00:00:00 Test Item Value Reference Range Interpretation Comments TESTOSTERONE (test code = 2830) 34 NG/DL [id number] 00:00:00 Test Item Value Reference Range Interpretation Comments PROGESTERONE (test code = 2790) 5.24 NG/ML [id number] 00:00:00 Test Item Value Reference Range Interpretation Comments PROGESTERONE (test code = 2790) 5.24 NG/ML HEMOGLOBIN [id number] 00:00:00 Test Item Value Reference Range Interpretation Comments HEMOGLOBIN A1c (test code = 29551) 5.4 % HEMOGLOBIN [id number] 00:00:00 Test Item Value Reference Range Interpretation Comments HEMOGLOBIN A1c (test code = 85890) 5.4 % HEMOGLOBIN [id number] 00:00:00 Test Item Value Reference Range Interpretation Comments HEMOGLOBIN A1c (test code = 02561) 5.4 % LIPID [id number] 00:00:00 Test Item Value Reference Range Interpretation Comments CHOLESTEROL (test code = 2210) 181 MG/DL TRIGLYCERIDES (test code = 2232) 126 MG/DL HDL CHOLESTEROL (test code = 2220) 52 MG/DL CALC LDL CHOL (test code = 2237) 106 MG/DL RISK RATIO LDL/HDL (test code = 2.04 RATIO 2238) LIPID [id number] 00:00:00 Test Item Value Reference Range Interpretation Comments CHOLESTEROL (test code = 2210) 181 MG/DL TRIGLYCERIDES (test code = 2232) 126 MG/DL HDL CHOLESTEROL (test code = 2220) 52 MG/DL CALC LDL CHOL (test code = 2237) 106 MG/DL RISK RATIO LDL/HDL (test code = 2.04 RATIO 2238) COMPREHENSIVE METABOLIC [id number] 00:00:00 Test Item Value Reference Range Interpretation Comments GLUCOSE (test code = 2217) 90 MG/DL BUN (test code = 2208) 16 MG/DL CREATININE (test code = 2214) 0.67 MG/DL eGFR AMER. (test code 137 ML/MIN/1.73 = 98280) eGFR NON- AMER. (test 118 ML/MIN/1.73 code = 40804) CALC BUN/CREAT (test code = 24 RATIO [...] code = 2219) 17 U/L COMPREHENSIVE METABOLIC [id number] 00:00:00 Test Item Value Reference Range Interpretation Comments GLUCOSE (test code = 2217) 90 MG/DL BUN (test code = 2208) 16 MG/DL CREATININE (test code = 2214) 0.67 MG/DL eGFR AMER. (test code 137 ML/MIN/1.73 = 51981) eGFR NON- AMER. (test 118 ML/MIN/1.73 code = 83327) CALC BUN/CREAT (test code = 24 RATIO [...] BILIRUBIN, TOTAL (test code = 0.5 MG/DL 220) ALKALINE PHOSPHATASE (test 41 U/L code = 2204) AST (test code = 2218) 19 U/L ALT (test code = 2219) 17 U/L [id number] 00:00:00 Test Item Value Reference Range Interpretation Comments TSH, THIRD GENERATION (test code 1.400 UIU/ML = 2821) [id number] 00:00:00 Test Item Value Reference Range Interpretation Comments TSH, THIRD GENERATION (test code 1.400 UIU/ML = 2821) [id number] 00:00:00 Test Item Value Reference Range Interpretation Comments TSH, THIRD GENERATION (test code 1.400 UIU/ML = 2821) [id number] 00:00:00 Test Item Value Reference Range Interpretation Comments PROLACTIN (test code = 2800) 27.5 NG/ML [id number] 00:00:00 Test Item Value Reference Range Interpretation Comments PROLACTIN (test code = 2800) 27.5 NG/ML FSH + LH [id number] 00:00:00 Test Item Value Reference Range Interpretation Comments FOLLICLE STIM HORMONE (test code = 3.2 IU/L 2700) LUTEINIZING HORMONE (test code = 4.8 IU/L 2776) FSH + LH [id number] 00:00:00 Test Item Value Reference Range Interpretation Comments FOLLICLE STIM HORMONE (test code = 3.2 IU/L 2700) LUTEINIZING HORMONE (test code = 4.8 IU/L 2776) DHEA [id number] 00:00:00 Test Item Value Reference Range Interpretation Comments DHEA SULFATE (test code = 4225) 406 UG/DL DHEA [id number] 00:00:00 Test Item Value Reference Range Interpretation Comments DHEA SULFATE (test code = 4225) 406 UG/DL [id number] 00:00:00 Test Item Value Reference Range Interpretation Comments TESTOSTERONE (test code = 2830) 34 NG/DL [id number] 00:00:00 Test Item Value Reference Range Interpretation Comments TESTOSTERONE (test code = 2830) 34 NG/DL [id number] 00:00:00 Test Item Value Reference Range Interpretation Comments PROGESTERONE (test code = 2790) 5.24 NG/ML [id number] 00:00:00 Test Item Value Reference Range Interpretation Comments PROGESTERONE (test code = 2790) 5.24 NG/ML HEMOGLOBIN [id number] 00:00:00 Test Item Value Reference Range Interpretation Comments HEMOGLOBIN A1c (test code = 36391) 5.4 % HEMOGLOBIN [id number] 00:00:00 Test Item Value Reference Range Interpretation Comments HEMOGLOBIN A1c (test code = 47189) 5.4 % HEMOGLOBIN [id number] 00:00:00 Test Item Value Reference Range Interpretation Comments HEMOGLOBIN A1c (test code = 78492) 5.4 % LIPID [id number] 00:00:00 Test Item Value Reference Range Interpretation Comments CHOLESTEROL (test code = 2210) 181 MG/DL TRIGLYCERIDES (test code = 2232) 126 MG/DL HDL CHOLESTEROL (test code = 2220) 52 MG/DL CALC LDL CHOL (test code = 2237) 106 MG/DL RISK RATIO LDL/HDL (test code = 2.04 RATIO 2238) LIPID [id number] 00:00:00 Test Item Value Reference Range Interpretation Comments CHOLESTEROL (test code = 2210) 181 MG/DL TRIGLYCERIDES (test code = 2232) 126 MG/DL HDL CHOLESTEROL (test code = 2220) 52 MG/DL CALC LDL CHOL (test code = 2237) 106 MG/DL RISK RATIO LDL/HDL (test code = 2.04 RATIO 2238) COMPREHENSIVE METABOLIC [id number] 00:00:00 Test Item Value Reference Range Interpretation Comments GLUCOSE (test code = 2217) 90 MG/DL BUN (test code = 2208) 16 MG/DL CREATININE (test code = 2214) 0.67 MG/DL eGFR AMER. (test code 137 ML/MIN/1.73 = 81115) eGFR NON- AMER. (test 118 ML/MIN/1.73 code = 73810) CALC BUN/CREAT (test code = 24 RATIO [...] code = 2219) 17 U/L COMPREHENSIVE METABOLIC [id number] 00:00:00 Test Item Value Reference Range Interpretation Comments GLUCOSE (test code = 2217) 90 MG/DL BUN (test code = 2208) 16 MG/DL CREATININE (test code = 2214) 0.67 MG/DL eGFR AMER. (test code 137 ML/MIN/1.73 = 51705) eGFR NON- AMER. (test 118 ML/MIN/1.73 code = 71647) CALC BUN/CREAT (test code = 24 RATIO [...] ALT (test code = 2219) 17 U/L [id number] 00:00:00 Test Item Value Reference Range Interpretation Comments TSH, THIRD GENERATION (test code 1.400 UIU/ML = 2821) [id number] 00:00:00 Test Item Value Reference Range Interpretation Comments TSH, THIRD GENERATION (test code 1.400 UIU/ML = 2821) [id number] 00:00:00 Test Item Value Reference Range Interpretation Comments TSH, THIRD GENERATION (test code 1.400 UIU/ML = 2821) [id number] 00:00:00 Test Item Value Reference Range Interpretation Comments PROLACTIN (test code = 2800) 27.5 NG/ML [id number] 00:00:00 Test Item Value Reference Range Interpretation Comments PROLACTIN (test code = 2800) 27.5 NG/ML FSH + LH [id number] 00:00:00 Test Item Value Reference Range Interpretation Comments FOLLICLE STIM HORMONE (test code = 3.2 IU/L 2700) LUTEINIZING HORMONE (test code = 4.8 IU/L 2776) FSH + LH [id number] 00:00:00 Test Item Value Reference Range Interpretation Comments FOLLICLE STIM HORMONE (test code = 3.2 IU/L 2700) LUTEINIZING HORMONE (test code = 4.8 IU/L 2776) DHEA [id number] 00:00:00 Test Item Value Reference Range Interpretation Comments DHEA SULFATE (test code = 4225) 406 UG/DL DHEA [id number] 00:00:00 Test Item Value Reference Range Interpretation Comments DHEA SULFATE (test code = 4225) 406 UG/DL [id number] 00:00:00 Test Item Value Reference Range Interpretation Comments TESTOSTERONE (test code = 2830) 34 NG/DL [id number] 00:00:00 Test Item Value Reference Range Interpretation Comments TESTOSTERONE (test code = 2830) 34 NG/DL [id number] 00:00:00 Test Item Value Reference Range Interpretation Comments PROGESTERONE (test code = 2790) 5.24 NG/ML [id number] 00:00:00 Test Item Value Reference Range Interpretation Comments PROGESTERONE (test code = 2790) 5.24 NG/ML HEMOGLOBIN [id number] 00:00:00 Test Item Value Reference Range Interpretation Comments HEMOGLOBIN A1c (test code = 80337) 5.4 % HEMOGLOBIN [id number] 00:00:00 Test Item Value Reference Range Interpretation Comments HEMOGLOBIN A1c (test code = 21409) 5.4 % HEMOGLOBIN [id number] 00:00:00 Test Item Value Reference Range Interpretation Comments HEMOGLOBIN A1c (test code = 73352) 5.4 % HEMOGLOBIN [id number] 00:00:00 Test Item Value Reference Range Interpretation Comments HEMOGLOBIN A1c (test code = 38403) 5.4 % HEMOGLOBIN [id number] 00:00:00 Test Item Value Reference Range Interpretation Comments HEMOGLOBIN A1c (test code = 58382) 5.4 % HEMOGLOBIN [id number] 00:00:00 Test Item Value Reference Range Interpretation Comments HEMOGLOBIN A1c (test code = 54244) 5.4 % LIPID [id number] 00:00:00 Test Item Value Reference Range Interpretation Comments CHOLESTEROL (test code = 2210) 181 MG/DL TRIGLYCERIDES (test code = 2232) 126 MG/DL HDL CHOLESTEROL (test code = 2220) 52 MG/DL CALC LDL CHOL (test code = 2237) 106 MG/DL RISK RATIO LDL/HDL (test code = 2.04 RATIO 2238) LIPID [id number] 00:00:00 Test Item Value Reference Range Interpretation Comments CHOLESTEROL (test code = 2210) 181 MG/DL TRIGLYCERIDES (test code = 2232) 126 MG/DL HDL CHOLESTEROL (test code = 2220) 52 MG/DL CALC LDL CHOL (test code = 2237) 106 MG/DL RISK RATIO LDL/HDL (test code = 2.04 RATIO 2238) COMPREHENSIVE METABOLIC [id number] 00:00:00 Test Item Value Reference Range Interpretation Comments GLUCOSE (test code = 2217) 90 MG/DL BUN (test code = 2208) 16 MG/DL CREATININE (test code = 2214) 0.67 MG/DL eGFR AMER. (test code 137 ML/MIN/1.73 = 13236) eGFR NON- AMER. (test 118 ML/MIN/1.73 code = 00615) CALC BUN/CREAT (test code = 24 RATIO [...] code = 2219) 17 U/L COMPREHENSIVE METABOLIC [id number] 00:00:00 Test Item Value Reference Range Interpretation Comments GLUCOSE (test code = 2217) 90 MG/DL BUN (test code = 2208) 16 MG/DL CREATININE (test code = 2214) 0.67 MG/DL eGFR AMER. (test code 137 ML/MIN/1.73 = 41709) eGFR NON- AMER. (test 118 ML/MIN/1.73 code = 53891) CALC BUN/CREAT (test code = 24 RATIO [...] ALT (test code = 2219) 17 U/L [id number] 00:00:00 Test Item Value Reference Range Interpretation Comments TSH, THIRD GENERATION (test code 1.400 UIU/ML = 2821) [id number] 00:00:00 Test Item Value Reference Range Interpretation Comments TSH, THIRD GENERATION (test code 1.400 UIU/ML = 2821) [id number] 00:00:00 Test Item Value Reference Range Interpretation Comments TSH, THIRD GENERATION (test code 1.400 UIU/ML = 2821) [id number] 00:00:00 Test Item Value Reference Range Interpretation Comments PROLACTIN (test code = 2800) 27.5 NG/ML [id number] 00:00:00 Test Item Value Reference Range Interpretation Comments PROLACTIN (test code = 2800) 27.5 NG/ML FSH + LH [id number] 00:00:00 Test Item Value Reference Range Interpretation Comments FOLLICLE STIM HORMONE (test code = 3.2 IU/L 2700) LUTEINIZING HORMONE (test code = 4.8 IU/L 2776) FSH + LH [id number] 00:00:00 Test Item Value Reference Range Interpretation Comments FOLLICLE STIM HORMONE (test code = 3.2 IU/L 2700) LUTEINIZING HORMONE (test code = 4.8 IU/L 2776) DHEA [id number] 00:00:00 Test Item Value Reference Range Interpretation Comments DHEA SULFATE (test code = 4225) 406 UG/DL DHEA [id number] 00:00:00 Test Item Value Reference Range Interpretation Comments DHEA SULFATE (test code = 4225) 406 UG/DL [id number] 00:00:00 Test Item Value Reference Range Interpretation Comments TESTOSTERONE (test code = 2830) 34 NG/DL [id number] 00:00:00 Test Item Value Reference Range Interpretation Comments TESTOSTERONE (test code = 2830) 34 NG/DL [id number] 00:00:00 Test Item Value Reference Range Interpretation Comments PROGESTERONE (test code = 2790) 5.24 NG/ML [id number] 00:00:00 Test Item Value Reference Range Interpretation Comments PROGESTERONE (test code = 2790) 5.24 NG/ML LIPID [id number] 00:00:00 Test Item Value Reference Range Interpretation Comments CHOLESTEROL (test code = 2210) 181 MG/DL TRIGLYCERIDES (test code = 2232) 126 MG/DL HDL CHOLESTEROL (test code = 2220) 52 MG/DL CALC LDL CHOL (test code = 2237) 106 MG/DL RISK RATIO LDL/HDL (test code = 2.04 RATIO 2238) LIPID [id number] 00:00:00 Test Item Value Reference Range Interpretation Comments CHOLESTEROL (test code = 2210) 181 MG/DL TRIGLYCERIDES (test code = 2232) 126 MG/DL HDL CHOLESTEROL (test code = 2220) 52 MG/DL CALC LDL CHOL (test code = 2237) 106 MG/DL RISK RATIO LDL/HDL (test code = 2.04 RATIO 2238) HEMOGLOBIN [id number] 00:00:00 Test Item Value Reference Range Interpretation Comments HEMOGLOBIN A1c (test code = 95195) 5.4 % HEMOGLOBIN [id number] 00:00:00 Test Item Value Reference Range Interpretation Comments HEMOGLOBIN A1c (test code = 55448) 5.4 % HEMOGLOBIN [id number] 00:00:00 Test Item Value Reference Range Interpretation Comments HEMOGLOBIN A1c (test code = 99322) 5.4 % LIPID [id number] 00:00:00 Test Item Value Reference Range Interpretation Comments CHOLESTEROL (test code = 2210) 181 MG/DL TRIGLYCERIDES (test code = 2232) 126 MG/DL HDL CHOLESTEROL (test code = 2220) 52 MG/DL CALC LDL CHOL (test code = 2237) 106 MG/DL RISK RATIO LDL/HDL (test code = 2.04 RATIO 2238) LIPID [id number] 00:00:00 Test Item Value Reference Range Interpretation Comments CHOLESTEROL (test code = 2210) 181 MG/DL TRIGLYCERIDES (test code = 2232) 126 MG/DL HDL CHOLESTEROL (test code = 2220) 52 MG/DL CALC LDL CHOL (test code = 2237) 106 MG/DL RISK RATIO LDL/HDL (test code = 2.04 RATIO 2238) COMPREHENSIVE METABOLIC [id number] 00:00:00 Test Item Value Reference Range Interpretation Comments GLUCOSE (test code = 2217) 90 MG/DL BUN (test code = 2208) 16 MG/DL CREATININE (test code = 2214) 0.67 MG/DL eGFR AMER. (test code 137 ML/MIN/1.73 = 14352) eGFR NON- AMER. (test 118 ML/MIN/1.73 code = 96685) CALC BUN/CREAT (test code = 24 RATIO [...] code = 2219) 17 U/L COMPREHENSIVE METABOLIC [id number] 00:00:00 Test Item Value Reference Range Interpretation Comments GLUCOSE (test code = 2217) 90 MG/DL BUN (test code = 2208) 16 MG/DL CREATININE (test code = 2214) 0.67 MG/DL eGFR AMER. (test code 137 ML/MIN/1.73 = 94439) eGFR NON- AMER. (test 118 ML/MIN/1.73 code = 23781) CALC BUN/CREAT (test code = 24 RATIO [...] ALT (test code = 2219) 17 U/L [id number] 00:00:00 Test Item Value Reference Range Interpretation Comments TSH, THIRD GENERATION (test code 1.400 UIU/ML = 2821) [id number] 00:00:00 Test Item Value Reference Range Interpretation Comments TSH, THIRD GENERATION (test code 1.400 UIU/ML = 2821) COMPREHENSIVE METABOLIC [id number] 00:00:00 Test Item Value Reference Range Interpretation Comments GLUCOSE (test code = 2217) 90 MG/DL BUN (test code = 2208) 16 MG/DL CREATININE (test code = 2214) 0.67 MG/DL eGFR AMER. (test code 137 ML/MIN/1.73 = 32395) eGFR NON- AMER. (test 118 ML/MIN/1.73 code = 78774) CALC BUN/CREAT (test code = 24 RATIO [...] ALT (test code = 2219) 17 U/L [id number] 00:00:00 Test Item Value Reference Range Interpretation Comments TSH, THIRD GENERATION (test code 1.400 UIU/ML = 2821) [id number] 00:00:00 Test Item Value Reference Range Interpretation Comments PROLACTIN (test code = 2800) 27.5 NG/ML [id number] 00:00:00 Test Item Value Reference Range Interpretation Comments PROLACTIN (test code = 2800) 27.5 NG/ML FSH + LH [id number] 00:00:00 Test Item Value Reference Range Interpretation Comments FOLLICLE STIM HORMONE (test code = 3.2 IU/L 2700) LUTEINIZING HORMONE (test code = 4.8 IU/L 2776) FSH + LH [id number] 00:00:00 Test Item Value Reference Range Interpretation Comments FOLLICLE STIM HORMONE (test code = 3.2 IU/L 2700) LUTEINIZING HORMONE (test code = 4.8 IU/L 2776) DHEA [id number] 00:00:00 Test Item Value Reference Range Interpretation Comments DHEA SULFATE (test code = 4225) 406 UG/DL DHEA [id number] 00:00:00 Test Item Value Reference Range Interpretation Comments DHEA SULFATE (test code = 4225) 406 UG/DL [id number] 00:00:00 Test Item Value Reference Range Interpretation Comments TESTOSTERONE (test code = 2830) 34 NG/DL [id number] 00:00:00 Test Item Value Reference Range Interpretation Comments TESTOSTERONE (test code = 2830) 34 NG/DL [id number] 00:00:00 Test Item Value Reference Range Interpretation Comments PROGESTERONE (test code = 2790) 5.24 NG/ML [id number] 00:00:00 Test Item Value Reference Range Interpretation Comments PROGESTERONE (test code = 2790) 5.24 NG/ML COMPREHENSIVE METABOLIC [id number] 00:00:00 Test Item Value Reference Range Interpretation Comments GLUCOSE (test code = 2217) 90 MG/DL BUN (test code = 2208) 16 MG/DL CREATININE (test code = 2214) 0.67 MG/DL eGFR AMER. (test code 137 ML/MIN/1.73 = 97940) eGFR NON- AMER. (test 118 ML/MIN/1.73 code = 30941) CALC BUN/CREAT (test code = 24 RATIO [...] ALT (test code = 2219) 17 U/L [id number] 00:00:00 Test Item Value Reference Range Interpretation Comments TSH, THIRD GENERATION (test code 1.400 UIU/ML = 2821) [id number] 00:00:00 Test Item Value Reference Range Interpretation Comments TSH, THIRD GENERATION (test code 1.400 UIU/ML = 2821) [id number] 00:00:00 Test Item Value Reference Range Interpretation Comments TSH, THIRD GENERATION (test code 1.400 UIU/ML = 2821) [id number] 00:00:00 Test Item Value Reference Range Interpretation Comments PROLACTIN (test code = 2800) 27.5 NG/ML [id number] 00:00:00 Test Item Value Reference Range Interpretation Comments PROLACTIN (test code = 2800) 27.5 NG/ML FSH + LH [id number] 00:00:00 Test Item Value Reference Range Interpretation Comments FOLLICLE STIM HORMONE (test code = 3.2 IU/L 2700) LUTEINIZING HORMONE (test code = 4.8 IU/L 2776) FSH + LH [id number] 00:00:00 Test Item Value Reference Range Interpretation Comments FOLLICLE STIM HORMONE (test code = 3.2 IU/L 2700) LUTEINIZING HORMONE (test code = 4.8 IU/L 2776) DHEA [id number] 00:00:00 Test Item Value Reference Range Interpretation Comments DHEA SULFATE (test code = 4225) 406 UG/DL DHEA [id number] 00:00:00 Test Item Value Reference Range Interpretation Comments DHEA SULFATE (test code = 4225) 406 UG/DL VAGINAL PATHOGENS DNA [id number] 00:00:00 Test Item Value Reference Range Interpretation Comments RONNA SPECIES (test code = ) NEGATIVE G. VAGINALIS (test code = 81863) POSITIVE T. VAGINALIS (test code = 57645) NEGATIVE VAGINAL PATHOGENS DNA [id number] 00:00:00 Test Item Value Reference Range Interpretation Comments RONNA SPECIES (test code = 76634) NEGATIVE G. VAGINALIS (test code = 78774) POSITIVE T. VAGINALIS (test code = 31378) NEGATIVE VAGINAL PATHOGENS DNA [id number] 00:00:00 Test Item Value Reference Range Interpretation Comments RONNA SPECIES (test code = 32320) NEGATIVE G. VAGINALIS (test code = 52372) POSITIVE T. VAGINALIS (test code = 12712) NEGATIVE VAGINAL PATHOGENS DNA [id number] 00:00:00 Test Item Value Reference Range Interpretation Comments RONNA SPECIES (test code = 64162) NEGATIVE G. VAGINALIS (test code = 13230) POSITIVE T. VAGINALIS (test code = 24798) NEGATIVE VAGINAL PATHOGENS DNA [id number] 00:00:00 Test Item Value Reference Range Interpretation Comments RONNA SPECIES (test code = 64449) NEGATIVE G. VAGINALIS (test code = 79505) POSITIVE T. VAGINALIS (test code = 06634) NEGATIVE VAGINAL PATHOGENS DNA [id number] 00:00:00 Test Item Value Reference Range Interpretation Comments RONNA SPECIES (test code = 57290) NEGATIVE G. VAGINALIS (test code = 06534) POSITIVE T. VAGINALIS (test code = 22999) NEGATIVE VAGINAL PATHOGENS DNA [id number] 00:00:00 Test Item Value Reference Range Interpretation Comments RONNA SPECIES (test code = ) NEGATIVE G. VAGINALIS (test code = 76210) POSITIVE T. VAGINALIS (test code = 33216) NEGATIVE VAGINAL PATHOGENS DNA [id number] 00:00:00 Test Item Value Reference Range Interpretation Comments RONNA SPECIES (test code = ) NEGATIVE G. VAGINALIS (test code = 83109) POSITIVE T. VAGINALIS (test code = 99353) NEGATIVE VAGINAL PATHOGENS DNA [id number] 00:00:00 Test Item Value Reference Range Interpretation Comments RONNA SPECIES (test code = 55329) NEGATIVE G. VAGINALIS (test code = 63626) POSITIVE T. VAGINALIS (test code = 27366) NEGATIVE VAGINAL PATHOGENS DNA [id number] 00:00:00 Test Item Value Reference Range Interpretation Comments RONNA SPECIES (test code = 74101) NEGATIVE G. VAGINALIS (test code = 25359) POSITIVE T. VAGINALIS (test code = 46491) NEGATIVE VAGINAL PATHOGENS DNA [id number] 00:00:00 Test Item Value Reference Range Interpretation Comments RONNA SPECIES (test code = 26828) NEGATIVE G. VAGINALIS (test code = 27798) POSITIVE T. VAGINALIS (test code = 01388) NEGATIVE VAGINAL PATHOGENS DNA [id number] 00:00:00 Test Item Value Reference Range Interpretation Comments RONNA SPECIES (test code = 99671) NEGATIVE G. VAGINALIS (test code = 42519) POSITIVE T. VAGINALIS (test code = ) NEGATIVE VAGINAL PATHOGENS DNA [id number] 00:00:00 Test Item Value Reference Range Interpretation Comments RONNA SPECIES (test code = ) NEGATIVE G. VAGINALIS (test code = 20170) POSITIVE T. VAGINALIS (test code = 99268) NEGATIVE VAGINAL PATHOGENS DNA [id number] 00:00:00 Test Item Value Reference Range Interpretation Comments RONNA SPECIES (test code = ) NEGATIVE G. VAGINALIS (test code = 29618) POSITIVE T. VAGINALIS (test code = 60999) NEGATIVE VAGINAL PATHOGENS DNA [id number] 00:00:00 Test Item Value Reference Range Interpretation Comments RONNA SPECIES (test code = ) NEGATIVE G. VAGINALIS (test code = 42302) POSITIVE T. VAGINALIS (test code = 05606) NEGATIVE VAGINAL PATHOGENS DNA [id number] 00:00:00 Test Item Value Reference Range Interpretation Comments RONNA SPECIES (test code = ) NEGATIVE G. VAGINALIS (test code = 53346) POSITIVE T. VAGINALIS (test code = 24584) NEGATIVE VAGINAL PATHOGENS DNA [id number] 00:00:00 Test Item Value Reference Range Interpretation Comments RONNA SPECIES (test code = ) NEGATIVE G. VAGINALIS (test code = 78166) POSITIVE T. VAGINALIS (test code = 36472) NEGATIVE VAGINAL PATHOGENS DNA [id number] 00:00:00 Test Item Value Reference Range Interpretation Comments RONNA SPECIES (test code = 77738) NEGATIVE G. VAGINALIS (test code = 14669) POSITIVE T. VAGINALIS (test code = 80888) NEGATIVE VAGINAL PATHOGENS DNA [id number] 00:00:00 Test Item Value Reference Range Interpretation Comments RONNA SPECIES (test code = 58547) NEGATIVE G. VAGINALIS (test code = 23083) POSITIVE T. VAGINALIS (test code = 91648) NEGATIVE VAGINAL PATHOGENS DNA [id number] 00:00:00 Test Item Value Reference Range Interpretation Comments RONNA SPECIES (test code = 59897) NEGATIVE G. VAGINALIS (test code = 35969) POSITIVE T. VAGINALIS (test code = 03446) NEGATIVE CBC W/AUTO [id number] 00:00:00 Test Item Value Reference Range Interpretation [...] code = 1015) 314 K/UL CBC W/AUTO [id number] 00:00:00 Test Item Value Reference Range Interpretation [...] code = 1015) 314 K/UL CBC W/AUTO [id number] 00:00:00 Test Item Value Reference Range Interpretation [...] (test code = 1015) 314 K/UL LIPID [id number] 00:00:00 Test Item Value Reference Range Interpretation Comments CHOLESTEROL (test code = 2210) 202 MG/DL TRIGLYCERIDES (test code = 2232) 169 MG/DL HDL CHOLESTEROL (test code = 2220) 62 MG/DL CALC LDL CHOL (test code = 2237) 111 MG/DL RISK RATIO LDL/HDL (test code = 1.79 RATIO 2238) LIPID [id number] 00:00:00 Test Item Value Reference Range Interpretation Comments CHOLESTEROL (test code = 2210) 202 MG/DL TRIGLYCERIDES (test code = 2232) 169 MG/DL HDL CHOLESTEROL (test code = 2220) 62 MG/DL CALC LDL CHOL (test code = 2237) 111 MG/DL RISK RATIO LDL/HDL (test code = 1.79 RATIO 2238) COMPREHENSIVE METABOLIC [id number] 00:00:00 Test Item Value Reference Range Interpretation Comments GLUCOSE (test code = 2217) 88 MG/DL BUN (test code = 2208) 20 MG/DL CREATININE (test code = 2214) 0.98 MG/DL eGFR AMER. (test code 90 ML/MIN/1.73 = 19656) eGFR NON- AMER. (test 77 ML/MIN/1.73 code = 52033) CALC BUN/CREAT (test code = 20 RATIO [...] CALC GLOBULIN (test code = 3.2 G/DL 0) CALC A/G RATIO (test code = 1.4 RATIO 2234) BILIRUBIN, TOTAL (test code = <0.2 MG/DL 2206) ALKALINE PHOSPHATASE (test 49 U/L code = 2204) AST (test code = 2218) 20 U/L ALT (test code = 2219) 13 U/L COMPREHENSIVE METABOLIC [id number] 00:00:00 Test Item Value Reference Range Interpretation Comments GLUCOSE (test code = 2217) 88 MG/DL BUN (test code = 2208) 20 MG/DL CREATININE (test code = 2214) 0.98 MG/DL eGFR AMER. (test code 90 ML/MIN/1.73 = 60988) eGFR NON- AMER. (test 77 ML/MIN/1.73 code = 70928) CALC BUN/CREAT (test code = 20 RATIO [...] ALT (test code = 2219) 13 U/L [id number] 00:00:00 Test Item Value Reference Range Interpretation Comments TSH, THIRD GENERATION (test code 0.587 UIU/ML = 2821) [id number] 00:00:00 Test Item Value Reference Range Interpretation Comments TSH, THIRD GENERATION (test code 0.587 UIU/ML = 2821) [id number] 00:00:00 Test Item Value Reference Range Interpretation Comments TSH, THIRD GENERATION (test code 0.587 UIU/ML = 2821) CBC W/AUTO [id number] 00:00:00 Test Item Value Reference Range Interpretation [...] code = 1015) 314 K/UL CBC W/AUTO [id number] 00:00:00 Test Item Value Reference Range Interpretation [...] code = 1015) 314 K/UL CBC W/AUTO [id number] 00:00:00 Test Item Value Reference Range Interpretation [...] (test code = 1015) 314 K/UL LIPID [id number] 00:00:00 Test Item Value Reference Range Interpretation Comments CHOLESTEROL (test code = 2210) 202 MG/DL TRIGLYCERIDES (test code = 2232) 169 MG/DL HDL CHOLESTEROL (test code = 2220) 62 MG/DL CALC LDL CHOL (test code = 2237) 111 MG/DL RISK RATIO LDL/HDL (test code = 1.79 RATIO 2238) LIPID [id number] 00:00:00 Test Item Value Reference Range Interpretation Comments CHOLESTEROL (test code = 2210) 202 MG/DL TRIGLYCERIDES (test code = 2232) 169 MG/DL HDL CHOLESTEROL (test code = 2220) 62 MG/DL CALC LDL CHOL (test code = 2237) 111 MG/DL RISK RATIO LDL/HDL (test code = 1.79 RATIO 2238) COMPREHENSIVE METABOLIC [id number] 00:00:00 Test Item Value Reference Range Interpretation Comments GLUCOSE (test code = 2217) 88 MG/DL BUN (test code = 2208) 20 MG/DL CREATININE (test code = 2214) 0.98 MG/DL eGFR AMER. (test code 90 ML/MIN/1.73 = 61692) eGFR NON- AMER. (test 77 ML/MIN/1.73 code = 22918) CALC BUN/CREAT (test code = 20 RATIO [...] code = 2219) 13 U/L COMPREHENSIVE METABOLIC [id number] 00:00:00 Test Item Value Reference Range Interpretation Comments GLUCOSE (test code = 2217) 88 MG/DL BUN (test code = 2208) 20 MG/DL CREATININE (test code = 2214) 0.98 MG/DL eGFR AMER. (test code 90 ML/MIN/1.73 = 32820) eGFR NON- AMER. (test 77 ML/MIN/1.73 code = 70764) CALC BUN/CREAT (test code = 20 RATIO [...] ALT (test code = 2219) 13 U/L [id number] 00:00:00 Test Item Value Reference Range Interpretation Comments TSH, THIRD GENERATION (test code 0.587 UIU/ML = 2821) [id number] 00:00:00 Test Item Value Reference Range Interpretation Comments TSH, THIRD GENERATION (test code 0.587 UIU/ML = 2821) [id number] 00:00:00 Test Item Value Reference Range Interpretation Comments TSH, THIRD GENERATION (test code 0.587 UIU/ML = 2821) CBC W/AUTO [id number] 00:00:00 Test Item Value Reference Range Interpretation [...] code = 1015) 314 K/UL CBC W/AUTO [id number] 00:00:00 Test Item Value Reference Range Interpretation [...] code = 1015) 314 K/UL CBC W/AUTO [id number] 00:00:00 Test Item Value Reference Range Interpretation [...] code = 1015) 314 K/UL CBC W/AUTO [id number] 00:00:00 Test Item Value Reference Range Interpretation [...] (test code = 1015) 314 K/UL LIPID [id number] 00:00:00 Test Item Value Reference Range Interpretation Comments CHOLESTEROL (test code = 2210) 202 MG/DL TRIGLYCERIDES (test code = 2232) 169 MG/DL HDL CHOLESTEROL (test code = 2220) 62 MG/DL CALC LDL CHOL (test code = 2237) 111 MG/DL RISK RATIO LDL/HDL (test code = 1.79 RATIO 2238) LIPID [id number] 00:00:00 Test Item Value Reference Range Interpretation Comments CHOLESTEROL (test code = 2210) 202 MG/DL TRIGLYCERIDES (test code = 2232) 169 MG/DL HDL CHOLESTEROL (test code = 2220) 62 MG/DL CALC LDL CHOL (test code = 2237) 111 MG/DL RISK RATIO LDL/HDL (test code = 1.79 RATIO 2238) CBC W/AUTO [id number] 00:00:00 Test Item Value Reference Range Interpretation [...] code = 1015) 314 K/UL COMPREHENSIVE METABOLIC [id number] 00:00:00 Test Item Value Reference Range Interpretation Comments GLUCOSE (test code = 2217) 88 MG/DL BUN (test code = 2208) 20 MG/DL CREATININE (test code = 2214) 0.98 MG/DL eGFR AMER. (test code 90 ML/MIN/1.73 = 26335) eGFR NON- AMER. (test 77 ML/MIN/1.73 code = 41229) CALC BUN/CREAT (test code = 20 RATIO [...] code = 2219) 13 U/L COMPREHENSIVE METABOLIC [id number] 00:00:00 Test Item Value Reference Range Interpretation Comments GLUCOSE (test code = 2217) 88 MG/DL BUN (test code = 2208) 20 MG/DL CREATININE (test code = 2214) 0.98 MG/DL eGFR AMER. (test code 90 ML/MIN/1.73 = 99128) eGFR NON- AMER. (test 77 ML/MIN/1.73 code = 75450) CALC BUN/CREAT (test code = 20 RATIO [...] ALT (test code = 2219) 13 U/L [id number] 00:00:00 Test Item Value Reference Range Interpretation Comments TSH, THIRD GENERATION (test code 0.587 UIU/ML = 2821) [id number] 00:00:00 Test Item Value Reference Range Interpretation Comments TSH, THIRD GENERATION (test code 0.587 UIU/ML = 2821) [id number] 00:00:00 Test Item Value Reference Range Interpretation Comments TSH, THIRD GENERATION (test code 0.587 UIU/ML = 2821) CBC W/AUTO [id number] 00:00:00 Test Item Value Reference Range Interpretation [...] (test code = 1015) 314 K/UL LIPID [id number] 00:00:00 Test Item Value Reference Range Interpretation Comments CHOLESTEROL (test code = 2210) 202 MG/DL TRIGLYCERIDES (test code = 2232) 169 MG/DL HDL CHOLESTEROL (test code = 2220) 62 MG/DL CALC LDL CHOL (test code = 2237) 111 MG/DL RISK RATIO LDL/HDL (test code = 1.79 RATIO 2238) LIPID [id number] 00:00:00 Test Item Value Reference Range Interpretation Comments CHOLESTEROL (test code = 2210) 202 MG/DL TRIGLYCERIDES (test code = 2232) 169 MG/DL HDL CHOLESTEROL (test code = 2220) 62 MG/DL CALC LDL CHOL (test code = 2237) 111 MG/DL RISK RATIO LDL/HDL (test code = 1.79 RATIO 2238) CBC W/AUTO [id number] 00:00:00 Test Item Value Reference Range Interpretation [...] code = 1015) 314 K/UL CBC W/AUTO [id number] 00:00:00 Test Item Value Reference Range Interpretation [...] code = 1015) 314 K/UL CBC W/AUTO [id number] 00:00:00 Test Item Value Reference Range Interpretation [...] (test code = 1015) 314 K/UL LIPID [id number] 00:00:00 Test Item Value Reference Range Interpretation Comments CHOLESTEROL (test code = 2210) 202 MG/DL TRIGLYCERIDES (test code = 2232) 169 MG/DL HDL CHOLESTEROL (test code = 2220) 62 MG/DL CALC LDL CHOL (test code = 2237) 111 MG/DL RISK RATIO LDL/HDL (test code = 1.79 RATIO 2238) LIPID [id number] 00:00:00 Test Item Value Reference Range Interpretation Comments CHOLESTEROL (test code = 2210) 202 MG/DL TRIGLYCERIDES (test code = 2232) 169 MG/DL HDL CHOLESTEROL (test code = 2220) 62 MG/DL CALC LDL CHOL (test code = 2237) 111 MG/DL RISK RATIO LDL/HDL (test code = 1.79 RATIO 2238) COMPREHENSIVE METABOLIC [id number] 00:00:00 Test Item Value Reference Range Interpretation Comments GLUCOSE (test code = 2217) 88 MG/DL BUN (test code = 2208) 20 MG/DL CREATININE (test code = 2214) 0.98 MG/DL eGFR AMER. (test code 90 ML/MIN/1.73 = 92181) eGFR NON- AMER. (test 77 ML/MIN/1.73 code = 01490) CALC BUN/CREAT (test code = 20 RATIO [...] code = 2219) 13 U/L COMPREHENSIVE METABOLIC [id number] 00:00:00 Test Item Value Reference Range Interpretation Comments GLUCOSE (test code = 2217) 88 MG/DL BUN (test code = 2208) 20 MG/DL CREATININE (test code = 2214) 0.98 MG/DL eGFR AMER. (test code 90 ML/MIN/1.73 = 97357) eGFR NON- AMER. (test 77 ML/MIN/1.73 code = 63812) CALC BUN/CREAT (test code = 20 RATIO [...] code = 2219) 13 U/L COMPREHENSIVE METABOLIC [id number] 00:00:00 Test Item Value Reference Range Interpretation Comments GLUCOSE (test code = 2217) 88 MG/DL BUN (test code = 2208) 20 MG/DL CREATININE (test code = 2214) 0.98 MG/DL eGFR AMER. (test code 90 ML/MIN/1.73 = 45858) eGFR NON- AMER. (test 77 ML/MIN/1.73 code = 56771) CALC BUN/CREAT (test code = 20 RATIO [...] ALT (test code = 2219) 13 U/L [id number] 00:00:00 Test Item Value Reference Range Interpretation Comments TSH, THIRD GENERATION (test code 0.587 UIU/ML = 2821) [id number] 00:00:00 Test Item Value Reference Range Interpretation Comments TSH, THIRD GENERATION (test code 0.587 UIU/ML = 2821) [id number] 00:00:00 Test Item Value Reference Range Interpretation Comments TSH, THIRD GENERATION (test code 0.587 UIU/ML = 2821) COMPREHENSIVE METABOLIC [id number] 00:00:00 Test Item Value Reference Range Interpretation Comments GLUCOSE (test code = 2217) 88 MG/DL BUN (test code = 2208) 20 MG/DL CREATININE (test code = 2214) 0.98 MG/DL eGFR AMER. (test code 90 ML/MIN/1.73 = 90039) eGFR NON- AMER. (test 77 ML/MIN/1.73 code = 12967) CALC BUN/CREAT (test code = 20 RATIO [...] ALT (test code = 2219) 13 U/L [id number] 00:00:00 Test Item Value Reference Range Interpretation Comments TSH, THIRD GENERATION (test code 0.587 UIU/ML = 2821) [id number] 00:00:00 Test Item Value Reference Range Interpretation Comments TSH, THIRD GENERATION (test code 0.587 UIU/ML = 2821) [id number] 00:00:00 Test Item Value Reference Range Interpretation Comments TSH, THIRD GENERATION (test code 0.587 UIU/ML = 2821) PAP TEST, THINPREP, [id number] 00:00:00 Test Item Value Reference Range Interpretation Comments SOURCE: (test code = Endocervical 8001) SLIDES: (test code = 1 8011) LMP: (test code = 10/2020 8021) SPECIMEN ADEQUACY: (NOTE) (test code = 04116) INTERPRETATION: (test NILM/NO EPITH. code = 05146) ABNORMALITY;SEE BELOW OTHER COMMENTS: (test (NOTE) code = 8081) SCHOOL CLEANER: JUDSON Fonseca (test code = 8101) (ASCP) LOCATION: (test code (NOTE) = 45495) CPT: (test code = (NOTE) 8140) PAP TEST, THINPREP, [id number] 00:00:00 Test Item Value Reference Range Interpretation Comments SOURCE: (test code = Endocervical 800) SLIDES: (test code = 1 8011) LMP: (test code = 10/2020) SPECIMEN ADEQUACY: (NOTE) (test code = 67166) INTERPRETATION: (test NILM/NO EPITH. code = 01014) ABNORMALITY;SEE BELOW OTHER COMMENTS: (test (NOTE) code = 8081) SCHOOL CLEANER: JUDSON Fonseca (test code = 8101) (ASCP) LOCATION: (test code (NOTE) = 62387) CPT: (test code = (NOTE) 8140) PAP TEST, THINPREP, [id number] 00:00:00 Test Item Value Reference Range Interpretation Comments SOURCE: (test code = Endocervical 800) SLIDES: (test code = 1 801) LMP: (test code = 10/2020) SPECIMEN ADEQUACY: (NOTE) (test code = 09325) INTERPRETATION: (test NILM/NO EPITH. code = 79150) ABNORMALITY;SEE BELOW OTHER COMMENTS: (test (NOTE) code = 8081) SCHOOL CLEANER: JUDSON Fonseca (test code = 8101) (ASCP) LOCATION: (test code (NOTE) = 37256) CPT: (test code = (NOTE) 8140) PAP TEST, THINPREP, [id number] 00:00:00 Test Item Value Reference Range Interpretation Comments SOURCE: (test code = Endocervical 800) SLIDES: (test code = 801) LMP: (test code = 10/2020) SPECIMEN ADEQUACY: (NOTE) (test code = 72427) INTERPRETATION: (test NILM/NO EPITH. code = 57768) ABNORMALITY;SEE BELOW OTHER COMMENTS: (test (NOTE) code = 8081) SCHOOL CLEANER: JUDSON Fonseca (test code = 8101) (ASCP) LOCATION: (test code (NOTE) = 18246) CPT: (test code = (NOTE) 8140) PAP TEST, THINPREP, [id number] 00:00:00 Test Item Value Reference Range Interpretation Comments SOURCE: (test code = Endocervical 800) SLIDES: (test code = 1 801) LMP: (test code = 10/2020) SPECIMEN ADEQUACY: (NOTE) (test code = 18759) INTERPRETATION: (test NILM/NO EPITH. code = 83667) ABNORMALITY;SEE BELOW OTHER COMMENTS: (test (NOTE) code = 8081) SCHOOL CLEANER: JUDSON Fonseca (test code = 8101) (ASCP) LOCATION: (test code (NOTE) = 09918) CPT: (test code = (NOTE) 8140) PAP TEST, THINPREP, [id number] 00:00:00 Test Item Value Reference Range Interpretation Comments SOURCE: (test code = Endocervical 800) SLIDES: (test code = 1 8011) LMP: (test code = 10/2020) SPECIMEN ADEQUACY: (NOTE) (test code = 13935) INTERPRETATION: (test NILM/NO EPITH. code = 77205) ABNORMALITY;SEE BELOW OTHER COMMENTS: (test (NOTE) code = 8081) SCHOOL CLEANER: JUDSON Fonseca (test code = 8101) (ASCP) LOCATION: (test code (NOTE) = 66276) CPT: (test code = (NOTE) 8140) PAP TEST, THINPREP, [id number] 00:00:00 Test Item Value Reference Range Interpretation Comments SOURCE: (test code = Endocervical 8001) SLIDES: (test code = 1 8011) LMP: (test code = 10/2020) SPECIMEN ADEQUACY: (NOTE) (test code = 57747) INTERPRETATION: (test NILM/NO EPITH. code = 93452) ABNORMALITY;SEE BELOW OTHER COMMENTS: (test (NOTE) code = 8081) SCHOOL CLEANER: JUDSON Fonseca (test code = 8101) (ASCP) LOCATION: (test code (NOTE) = 66315) CPT: (test code = (NOTE) 8140) PAP TEST, THINPREP, [id number] 00:00:00 Test Item Value Reference Range Interpretation Comments SOURCE: (test code = Endocervical 8001) SLIDES: (test code = 1 8011) LMP: (test code = 10/2020) SPECIMEN ADEQUACY: (NOTE) (test code = 18682) INTERPRETATION: (test NILM/NO EPITH. code = 80908) ABNORMALITY;SEE BELOW OTHER COMMENTS: (test (NOTE) code = 8081) SCHOOL CLEANER: JUDSON Fonseca (test code = 8101) (ASCP) LOCATION: (test code (NOTE) = 80301) CPT: (test code = (NOTE) 8140) PAP TEST, THINPREP, [id number] 00:00:00 Test Item Value Reference Range Interpretation Comments SOURCE: (test code = Endocervical 8001) SLIDES: (test code = 1 8011) LMP: (test code = 10/2020 8021) SPECIMEN ADEQUACY: (NOTE) (test code = 14494) INTERPRETATION: (test NILM/NO EPITH. code = 77711) ABNORMALITY;SEE BELOW OTHER COMMENTS: (test (NOTE) code = 8081) SCHOOL CLEANER: JUDSON Fonseca (test code = 8101) (ASCP) LOCATION: (test code (NOTE) = 90113) CPT: (test code = (NOTE) 8140) PAP TEST, THINPREP, [id number] 00:00:00 Test Item Value Reference Range Interpretation Comments SOURCE: (test code = Endocervical 8001) SLIDES: (test code = 1 8011) LMP: (test code = 10/2020 8021) SPECIMEN ADEQUACY: (NOTE) (test code = 57697) INTERPRETATION: (test NILM/NO EPITH. code = 13536) ABNORMALITY;SEE BELOW OTHER COMMENTS: (test (NOTE) code = 8081) SCHOOL CLEANER: JUDSON Fonseca (test code = 8101) (ASCP) LOCATION: (test code (NOTE) = 33029) CPT: (test code = (NOTE) 8140) GC AND CHLAMYDIA AMPLIFIED, [id number] 00:00:00 Test Item Value Reference Range Interpretation Comments GONORRHEA, TMA (test code = 05359) NEGATIVE CHLAMYDIA, TMA (test code = 58069) NEGATIVE VAGINAL PATHOGENS DNA [id number] 00:00:00 Test Item Value Reference Range Interpretation Comments RONNA SPECIES (test code = 95435) NEGATIVE G. VAGINALIS (test code = 73499) POSITIVE T. VAGINALIS (test code = 13570) NEGATIVE GC AND CHLAMYDIA AMPLIFIED, [id number] 00:00:00 Test Item Value Reference Range Interpretation Comments GONORRHEA, TMA (test code = 75422) NEGATIVE CHLAMYDIA, TMA (test code = 60981) NEGATIVE VAGINAL PATHOGENS DNA [id number] 00:00:00 Test Item Value Reference Range Interpretation Comments RONNA SPECIES (test code = ) NEGATIVE G. VAGINALIS (test code = ) POSITIVE T. VAGINALIS (test code = ) NEGATIVE HPV HIGH RISK WITH GENOTYPE, [id number] 00:00:00 Test Item Value Reference Range Interpretation Comments HPV HIGH RISK INTERP (test code = NEGATIVE 96947) HPV 16 (test code = 01312) NEGATIVE HPV 18 (test code = 69060) NEGATIVE HPV, HR, OTHER GENOTYPES (test code NEGATIVE = 67726) HPV HIGH RISK WITH GENOTYPE, [id number] 00:00:00 Test Item Value Reference Range Interpretation Comments HPV HIGH RISK INTERP (test code = NEGATIVE 52399) HPV 16 (test code = 94845) NEGATIVE HPV 18 (test code = 30509) NEGATIVE HPV, HR, OTHER GENOTYPES (test code NEGATIVE = 18294) GC AND CHLAMYDIA AMPLIFIED, [id number] 00:00:00 Test Item Value Reference Range Interpretation Comments GONORRHEA, TMA (test code = 92433) NEGATIVE CHLAMYDIA, TMA (test code = 60233) NEGATIVE VAGINAL PATHOGENS DNA [id number] 00:00:00 Test Item Value Reference Range Interpretation Comments RONNA SPECIES (test code = ) NEGATIVE G. VAGINALIS (test code = ) POSITIVE T. VAGINALIS (test code = ) NEGATIVE GC AND CHLAMYDIA AMPLIFIED, [id number] 00:00:00 Test Item Value Reference Range Interpretation Comments GONORRHEA, TMA (test code = 28881) NEGATIVE CHLAMYDIA, TMA (test code = 00755) NEGATIVE VAGINAL PATHOGENS DNA [id number] 00:00:00 Test Item Value Reference Range Interpretation Comments RONNA SPECIES (test code = ) NEGATIVE G. VAGINALIS (test code = 89783) POSITIVE T. VAGINALIS (test code = 06042) NEGATIVE HPV HIGH RISK WITH GENOTYPE, [id number] 00:00:00 Test Item Value Reference Range Interpretation Comments HPV HIGH RISK INTERP (test code = NEGATIVE 83486) HPV 16 (test code = 33653) NEGATIVE HPV 18 (test code = 13552) NEGATIVE HPV, HR, OTHER GENOTYPES (test code NEGATIVE = 02460) HPV HIGH RISK WITH GENOTYPE, [id number] 00:00:00 Test Item Value Reference Range Interpretation Comments HPV HIGH RISK INTERP (test code = NEGATIVE 69782) HPV 16 (test code = 62997) NEGATIVE HPV 18 (test code = 01729) NEGATIVE HPV, HR, OTHER GENOTYPES (test code NEGATIVE = 60075) GC AND CHLAMYDIA AMPLIFIED, [id number] 00:00:00 Test Item Value Reference Range Interpretation Comments GONORRHEA, TMA (test code = 55094) NEGATIVE CHLAMYDIA, TMA (test code = 58273) NEGATIVE VAGINAL PATHOGENS DNA [id number] 00:00:00 Test Item Value Reference Range Interpretation Comments RONNA SPECIES (test code = ) NEGATIVE G. VAGINALIS (test code = 35060) POSITIVE T. VAGINALIS (test code = ) NEGATIVE GC AND CHLAMYDIA AMPLIFIED, [id number] 00:00:00 Test Item Value Reference Range Interpretation Comments GONORRHEA, TMA (test code = 00798) NEGATIVE CHLAMYDIA, TMA (test code = 49352) NEGATIVE VAGINAL PATHOGENS DNA [id number] 00:00:00 Test Item Value Reference Range Interpretation Comments RONNA SPECIES (test code = ) NEGATIVE G. VAGINALIS (test code = 23675) POSITIVE T. VAGINALIS (test code = 49405) NEGATIVE GC AND CHLAMYDIA AMPLIFIED, [id number] 00:00:00 Test Item Value Reference Range Interpretation Comments GONORRHEA, TMA (test code = 73775) NEGATIVE CHLAMYDIA, TMA (test code = 05215) NEGATIVE GC AND CHLAMYDIA AMPLIFIED, [id number] 00:00:00 Test Item Value Reference Range Interpretation Comments GONORRHEA, TMA (test code = 04470) NEGATIVE CHLAMYDIA, TMA (test code = 58111) NEGATIVE VAGINAL PATHOGENS DNA [id number] 00:00:00 Test Item Value Reference Range Interpretation Comments RONNA SPECIES (test code = ) NEGATIVE G. VAGINALIS (test code = 46672) POSITIVE T. VAGINALIS (test code = 00155) NEGATIVE VAGINAL PATHOGENS DNA [id number] 00:00:00 Test Item Value Reference Range Interpretation Comments RONNA SPECIES (test code = 84236) NEGATIVE G. VAGINALIS (test code = 79031) POSITIVE T. VAGINALIS (test code = 42078) NEGATIVE HPV HIGH RISK WITH GENOTYPE, [id number] 00:00:00 Test Item Value Reference Range Interpretation Comments HPV HIGH RISK INTERP (test code = NEGATIVE 38030) HPV 16 (test code = 90145) NEGATIVE HPV 18 (test code = 87349) NEGATIVE HPV, HR, OTHER GENOTYPES (test code NEGATIVE = 78008) HPV HIGH RISK WITH GENOTYPE, [id number] 00:00:00 Test Item Value Reference Range Interpretation Comments HPV HIGH RISK INTERP (test code = NEGATIVE 64624) HPV 16 (test code = 61736) NEGATIVE HPV 18 (test code = 82048) NEGATIVE HPV, HR, OTHER GENOTYPES (test code NEGATIVE = 33171) VAGINAL PATHOGENS DNA [id number] 00:00:00 Test Item Value Reference Range Interpretation Comments RONNA SPECIES (test code = ) NEGATIVE G. VAGINALIS (test code = 62085) POSITIVE T. VAGINALIS (test code = ) NEGATIVE GC AND CHLAMYDIA AMPLIFIED, [id number] 00:00:00 Test Item Value Reference Range Interpretation Comments GONORRHEA, TMA (test code = 06077) NEGATIVE CHLAMYDIA, TMA (test code = 64938) NEGATIVE GC AND CHLAMYDIA AMPLIFIED, [id number] 00:00:00 Test Item Value Reference Range Interpretation Comments GONORRHEA, TMA (test code = 10228) NEGATIVE CHLAMYDIA, TMA (test code = 40696) NEGATIVE VAGINAL PATHOGENS DNA [id number] 00:00:00 Test Item Value Reference Range Interpretation Comments RONNA SPECIES (test code = ) NEGATIVE G. VAGINALIS (test code = ) POSITIVE T. VAGINALIS (test code = ) NEGATIVE HPV HIGH RISK WITH GENOTYPE, [id number] 00:00:00 Test Item Value Reference Range Interpretation Comments HPV HIGH RISK INTERP (test code = NEGATIVE 46505) HPV 16 (test code = 11779) NEGATIVE HPV 18 (test code = 76530) NEGATIVE HPV, HR, OTHER GENOTYPES (test code NEGATIVE = 41229) HPV HIGH RISK WITH GENOTYPE, [id number] 00:00:00 Test Item Value Reference Range Interpretation Comments HPV HIGH RISK INTERP (test code = NEGATIVE 64612) HPV 16 (test code = 36794) NEGATIVE HPV 18 (test code = 07552) NEGATIVE HPV, HR, OTHER GENOTYPES (test code NEGATIVE = 84248) HPV HIGH RISK WITH GENOTYPE, [id number] 00:00:00 Test Item Value Reference Range Interpretation Comments HPV HIGH RISK INTERP (test code = NEGATIVE 67147) HPV 16 (test code = 34430) NEGATIVE HPV 18 (test code = 67548) NEGATIVE HPV, HR, OTHER GENOTYPES (test code NEGATIVE = 25697) HPV HIGH RISK WITH GENOTYPE, [id number] 00:00:00 Test Item Value Reference Range Interpretation Comments HPV HIGH RISK INTERP (test code = NEGATIVE 15901) HPV 16 (test code = 75483) NEGATIVE HPV 18 (test code = 64649) NEGATIVE HPV, HR, OTHER GENOTYPES (test code NEGATIVE = 07107)
[2023-04-04 18:23] LABS: Barbiturates NEGATIVE (NEGATIVE); Benzodiazepines NEGATIVE (NEGATIVE); Cocaine NEGATIVE (NEGATIVE); METHAMPHETAM NEGATIVE (NEGATIVE); Methadone NEGATIVE (NEGATIVE); Opiates NEGATIVE (NEGATIVE); Phencyclidine NEGATIVE (NEGATIVE); THC Cannibis NEGATIVE (NEGATIVE)
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
[2023-04-04 19:09] VITALS: TEMP 98.1; O2SAT 100
[2023-04-04 19:10] VITALS: BP 138/74
== END 2023-04-04 18:52 | disposition home or self-care (01) ==
LOC: ER 17:47
DX: Z71.1 Person with feared health complaint in whom no diagnosis is made (principal)
CPT/HCPCS: 80307

== ENCOUNTER 2023-05-24 23:57 | Emergency (ER) | payer OTHER ==
--- OUTSIDE RECORDS SUMMARY | 2023-05-25 00:07 | XMS REPORT | Continuity of Care Document ---
:1990 Author Organization [facility] t Address [address] [place] [address] Care Team Providers Name Role Phone Asked, [...] Type Policy Number Effective Date Expiration Date [facility] [id number] 2020 DUAL COMPLETE HMO 00:00:00 MEDICAID [facility] [id number] 2019 00:00:00 MEDICARE PART A \T\ [id number] 2011 B 00:00:00 Problems Condition Condition Condition [...] Medical s Branch Morphine Propensi Active Swelling 0 Univ ers ty to 814 ity of adverse 00:00: [place] reaction 00 [facility] Zipdontrell Propensi Active Swelling 0 Univ ers one Hcl ty to 814 ity of adverse 00:00: [place] reaction 00 [facility] NO KNOWN Drug Active Univers ALLERGIE Class ity of S [facility] Social History Social Habit Start Date Stop Date Quantity Comments Source Gender identity [facility] History of tobacco Light tobacco Uni versity of use smoker [facility] Exposure to 2022-07-13 2022-07-23 Not sure University of SARS-CoV-2 (event) 00:00:00 15:04:00 [facility] Alcohol intake 2020-05-27 2020-05-27 Current drinker [facility]o dist 00:00:00 00:00:00 of [facility] (finding) History of Social 2020-05-27 2020-05-27 [facility]00 [facility] Alcohol Comment 2019-05-29 2019-05-29 occasional [facility] Cigarettes smoked 2019-05-29 2019-05-29 [facility] current (pack per 00:00:00 00:00:00 Hospita l day) - Reported Tobacco use and 2019-05-29 2019-05-29 Smokeless tobacco [facility] exposure 00:00:00 00:00:00 non-user Hospital Sex Assigned At [birth year] [facility] Smoking Status Start Date Stop Date Source Light tobacco smoker 2019 00:00:00 Univers ity [facility] Smokes tobacco daily 2019-05-29 00:00:00 [facility] Medications Ordered Filled Start Stop Current Ordering Indication Dosage Frequency Signature Comments Components Source Medication Medication Date Date Medication? Clinician (SIG) Name Name TAKE 2021-10 No TABLET 0-31 EVERY 8 00:00: HOURS 00 NEEDED TAKE 2021-10 No TABLET 0-31 EVERY 8 00:00: HOURS 00 NEEDED erythromyci 2021-10 Yes [id number] .5[in_u Place 0.5 Univers n 5 mg/gram 0-08 218479 s] Inches in i ty of (0.5 %) 00:00: both eyes [place] ophthalmic 00 at Medical ointment bedtime. Branch Continue until you follow up with eye doctor. erythromyci 2021-10- No [id number] .5[in_u Place 0.5 Univers n 5 mg/gram 007-23 602047 s] Inches in ity of (0.5 %) 00:00: 00:[place]00 at bedtime Med ical ointment for 7 Branch days. Continue until you follow up with eye doctor. TAKE 1 2021-0 No TABLET BY 9- MOUTH THREE 00:00: TIMES DAILY 00 NEEDED TAKE 2021-0 No TABLET BY 06-23 MOUTH THREE 00:00: TIMES DAILY 00 NEEDED TAKE 2021-0 No TABLET BY - MOUTH THREE 00:00: TIMES DAILY 00 NEEDED TAKE 1 2021-0 No TABLET BY 06-23 MOUTH THREE 00:00: TIMES DAILY 00 NEEDED TAKE 1 2021-0 No TABLET BY 06-23 MOUTH THREE 00:00: TIMES DAILY 00 NEEDED [...] Dose 1-0 No Unknown 5-11 00:00: 00 cetirizine 1-0 No 1mg 10 [...] 00:00: n mcg/actuati 00 on nasal spray,suspe nstejas Bromfed DM 2020-0 No 10mg/5 2 mg-30 [...] 00 on nasal spray,suspe nsion Bromfed DM 0 No 10mg/5 2 mg-30 4-14 mL mg-10 [...] mL 00:00: injection, 00 auto-inject or clindamycin 0 No 1mg HCl 300 mg 3-10 capsule 00:00: 00 clindamycin 2020-0 No 1mg HCl 300 mg 3-10 capsule 00:00: 00 clindamycin 2020-0 No 1mg HCl 300 mg 3-10 capsule 00:00: 00 clindamycin 2020-0 No 1mg HCl 300 mg 3-10 capsule 00:00: 00 clindamycin 2020-0 No 1mg HCl 300 mg 3-10 capsule 00:00: 00 diphenhydrA 2020-1 Yes [id number] 25mg Take 1 Univers MINE 1-20 105 capsule by ity of (BENADRYL) 00:00: mouth [place] 25 mg 00 every 6 Medical capsule (six) Branch hours as needed for Allergies or Sleep. diphenhydrA 2019- Yes [id number] 25mg Take 1 Univers MINE 1-20 105 capsule by ity of (BENADRYL) 00:00: mouth [place] 25 mg 00 every 6 Medical capsule (six) Branch hours as needed for Allergies or Sleep. ibuprofen Yes [id number] 600mg Take 1 Univers 600 mg 9-23 tablet by ity of tablet 00:00: mouth [place] 00 every 6 Medical (six) Branch hours as needed for Pain (scale 4-6). ibuprofen 2020-0 Yes [id number] 600mg Take 1 Univers 600 mg 9-23 [...] mouth 3 ity of capsule 20:29: (three) [place] 53 times Medical daily as Branch needed [...] Kavitha COVID-19 2021-06-16 Completed Vaccine 00:00:00 Kavitha COVID-19 2021-06-16 Completed Vaccine 00:00:00 Kavitha COVID-19 2021-06-16 Completed Vaccine 00:00:00 Vital Signs Vital Name Observation Time Observation Value Comments Source Systolic blood 2022-07-23 20:05:00 150 mm[Hg] Univer sity of [facility] Diastolic blood 2022-07-23 20:05:00 103 mm[Hg] Unive rsity of [facility] Heart rate 2022-07-23 20:05:00 82 /min [facility] Body temperature 2022-07-23 20:05:00 37.61 [place] [facility] Respiratory rate 2022-07-23 20:05:00 18 /min [facility] Body height 2022-07-23 20:05:00 160 cm [facility] Body weight 2022-07-23 20:05:00 81.647 kg [facility] BMI 2022-07-23 20:05:00 31.89 kg/m2 [facility] Oxygen saturation in 2022-07-23 20:05:00 100 /min [facility] blood by [facility] Pulse oximetry Branch BP Systolic 2022-10-06 13:36:00 [...] 2022-07-23 20:02:47 Doctor Unassigned, No Univ ersity [facility] PRACTICES Name Medical Branch CONSENT/REFUSAL FOR 2022-07-23 19:57:49 Doctor Unassigned, No Un iversity [facility] DIAGNOSIS AND TREATMENT Name Medical Branch Ekg W/ At Least 12 2021-10-04 00:00:00 [place]s W/ [place] r [address] Us Pelvic 2021-05-14 00:00:00 Nonobstetric Complete 61502 Us Abdominal 2021-05-14 00:00:00 Complete Plan of Care Planned Activity Planned Date Details Comments Source Future Scheduled 2023-05-20 COVID-[address] [facility] Test 20:42:44 (#1) [code = COVID-19 VACCINE (#1)] Future Scheduled 2023-05-20 Screening for [facility] Test 20:42:44 malignant neoplasm of cervix (procedure) [code = 203841021] Future Scheduled 2023-05-20 [facility]ZA [facility]ACCINE [facility] 20:42:44 [code = INFLUENZA VACCINE] Future Scheduled 2023-04-17 [facility] 14:18:58 (#1) [code = COVID-19 VACCINE (#1)] Future Scheduled 2023-04-17 Screening for [facility] Test 14:18:58 malignant neoplasm of cervix (procedure) [code = 663675429] Future Scheduled 2023-04-17 [facility] 14:18:58 [code = INFLUENZA VACCINE] Future Scheduled 2023-04-17 [facility] 14:18:58 (#1) [code = COVID-19 VACCINE (#1)] Future Scheduled 2023-04-17 [facility] Test 14:18:58 malignant neoplasm of cervix (procedure) [code = 480447113] Future Scheduled 2023-04-17 [facility] 14:18:58 [code = INFLUENZA VACCINE] Future Scheduled 2023-04-17 [facility] 14:18:58 (#1) [code = COVID-19 VACCINE (#1)] Future Scheduled 2023-04-17 [facility] Test 14:18:58 malignant neoplasm of cervix (procedure) [code = 406334035] Future Scheduled 2023-04-17 [facility] 14:18:58 [code = INFLUENZA VACCINE] Future Scheduled 2023-04-17 [facility] 14:18:58 (#1) [code = COVID-19 VACCINE (#1)] Future Scheduled 2023-04-17 [facility] Test 14:18:58 malignant neoplasm of cervix (procedure) [code = 993743728] Future Scheduled 2023-04-17 [facility] 14:18:58 [code = INFLUENZA VACCINE] Future Scheduled 2023-04-17 [facility] 14:18:58 (#1) [code = COVID-19 VACCINE (#1)] Future Scheduled 2023-04-17 [facility] Test 14:18:58 malignant neoplasm of cervix (procedure) [code = 205702079] Future Scheduled 2023-04-17 [facility] 14:18:58 [code = INFLUENZA VACCINE] Future Scheduled 2023-04-17 [facility] 14:18:58 (#1) [code = COVID-19 VACCINE (#1)] Future Scheduled 2023-04-17 [facility] Test 14:18:58 malignant neoplasm of cervix (procedure) [code = 453998900] Future Scheduled 2023-04-17 [facility] 14:18:58 [code = INFLUENZA VACCINE] Future Scheduled 2023-04-17 [facility] 14:18:58 (#1) [code = COVID-19 VACCINE (#1)] Future Scheduled 2023-04-17 [facility] Test 14:18:58 malignant neoplasm of cervix (procedure) [code = 358238287] Future Scheduled 2023-04-17 [facility] 14:18:58 [code = INFLUENZA VACCINE] Future Scheduled 2023-04-17 [facility] 14:18:58 (#1) [code = COVID-19 VACCINE (#1)] Future Scheduled 2023-04-17 [facility] for [facility] Test 14:18:58 malignant neoplasm of cervix (procedure) [code = 861620202] Future Scheduled 2023-04-17 [facility] 14:18:58 [code = INFLUENZA VACCINE] Future Scheduled 2023-04-17 [facility] 14:18:58 (#1) [code = COVID-19 VACCINE (#1)] Future Scheduled 2023-04-17 [facility] Test 14:18:58 malignant neoplasm of cervix (procedure) [code = 031930479] Future Scheduled 2023-04-17 [facility] 14:18:58 [code = INFLUENZA VACCINE] Future Scheduled 2023-04-04 COVID-[address] [facility] Test 17:50:56 (#1) [code = COVID-19 VACCINE (#1)] Future Scheduled 2023-04-04 [facility] Test 17:50:56 malignant neoplasm of cervix (procedure) [code = 742239566] Future Scheduled 2023-04-04 [facility] 17:50:56 [code = INFLUENZA VACCINE] Future Scheduled 2023-01-15 COVID-[address] [facility] Test 10:28:45 (#1) [code = COVID-19 VACCINE (#1)] Future Scheduled 2023-01-15 [facility] Test 10:28:45 malignant neoplasm of cervix (procedure) [code = 599297087] Future Scheduled 2023-01-15 [facility] 10:28:45 [code = INFLUENZA VACCINE] Future Scheduled 2023-01-10 [facility] 16:49:24 (#1) [code = COVID-19 VACCINE (#1)] Future Scheduled 2023-01-10 [facility] Test 16:49:24 malignant neoplasm of cervix (procedure) [code = 500717221] Future Scheduled 2023-01-10 [facility] 16:49:24 [code = INFLUENZA VACCINE] Future Scheduled 2022-12-05 [facility] 08:41:12 (#1) [code = COVID-19 VACCINE (#1)] Future Scheduled 2022-12-05 [facility] Test 08:41:12 malignant neoplasm of cervix (procedure) [code = 686909744] Future Scheduled 2022-12-05 [facility] 08:41:12 [code = INFLUENZA VACCINE] Future Scheduled 2022-12-05 [facility] 08:41:12 (#1) [code = COVID-19 VACCINE (#1)] Future Scheduled 2022-12-05 [facility] Test 08:41:12 malignant neoplasm of cervix (procedure) [code = 166082852] Future Scheduled 2022-12-05 [facility] 08:41:12 [code = INFLUENZA VACCINE] Future Scheduled 2022-10-09 [facility] 13:43:20 (#1) [code = COVID-19 VACCINE (#1)] Future Scheduled 2022-10-09 [facility] Test 13:43:20 malignant neoplasm of cervix (procedure) [code = 893578737] Future Scheduled 2022-10-09 [facility] 13:43:20 [code = INFLUENZA VACCINE] Future Scheduled 2022-10-09 [facility] 13:43:20 (#1) [code = COVID-19 VACCINE (#1)] Future Scheduled 2022-10-09 Screening for [facility] Test 13:43:20 malignant neoplasm of cervix (procedure) [code = 693954042] Future Scheduled 2022-10-09 [facility] 13:43:20 [code = INFLUENZA VACCINE] Future Scheduled 2022-10-09 [facility] 13:43:20 (#1) [code = COVID-19 VACCINE (#1)] Future Scheduled 2022-10-09 Scre[facility] for [facility] Test 13:43:20 malignant neoplasm of cervix (procedure) [code = 513876828] Future Scheduled 2022-10-09 [facility] 13:43:20 [code = INFLUENZA VACCINE] Future Scheduled 2022-10-09 [facility] 13:43:20 (#1) [code = COVID-19 VACCINE (#1)] Future Scheduled 2022-10-09 [facility] Test 13:43:20 malignant neoplasm of cervix (procedure) [code = 276490637] Future Scheduled 2022-10-09 [facility] 13:43:20 [code = INFLUENZA VACCINE] Future Scheduled 2022-10-02 [facility] 01:26:14 (#1) [code = COVID-19 VACCINE (#1)] Future Scheduled 2022-10-02 [facility] 01:26:14 [code = INFLUENZA VACCINE] Future Scheduled 2022-06-26 [facility] 03:02:31 VACCINES (1 of 3 - 3-dose series) [code = HEPATITIS B VACCINES (1 of 3 - 3-dose series)] Future Scheduled 2022-06-26 [facility] 03:02:31 (#1) [code = COVID-19 VACCINE (#1)] Future Scheduled 2022-06-26 [facility] Test 03:02:31 malignant neoplasm of cervix (procedure) [code = 788777195] Future Scheduled 2022-06-26 [facility] 03:02:31 [code = INFLUENZA VACCINE] Future Scheduled 2022-06-26 [facility] 03:02:31 VACCINES (1 of 3 - 3-dose series) [code = HEPATITIS B VACCINES (1 of 3 - 3-dose series)] Future Scheduled 2022-06-26 [facility] 03:02:31 (#1) [code = COVID-19 VACCINE (#1)] Future Scheduled 2022-06-26 [facility] Test 03:02:31 malignant neoplasm of cervix (procedure) [code = 894056560] Future Scheduled 2022-06-26 [facility] 03:02:31 [code = INFLUENZA VACCINE] Future Scheduled 2022-06-26 [facility] 03:02:31 VACCINES (1 of 3 - 3-dose series) [code = HEPATITIS B VACCINES (1 of 3 - 3-dose series)] Future Scheduled 2022-06-26 [facility] 03:02:31 (#1) [code = COVID-19 VACCINE (#1)] Future Scheduled 2022-06-26 [facility] Test 03:02:31 malignant neoplasm of cervix (procedure) [code = 518682446] Future Scheduled 2022-06-26 [facility] 03:02:31 [code = INFLUENZA VACCINE] Future Scheduled [facility]-19 [facility] (1) [code = COVID-19 VACCINE (1)] Future Scheduled [facility] screening (procedure) [code = 155512425] Future Scheduled [facility] for [facility] Test malignant neoplasm of cervix (procedure) [code = 854001653] Future Scheduled [facility] [code = INFLUENZA VACCINE] Goal Plan of Care Note [code = 20976-9] Goal Plan of Care Note [code = 53126-1] Goal Plan of Care Note [code = 10292-7] Goal Plan of Care Note [code = 94450-6] Goal Plan of Care Note [code = 71035-6] Goal Plan of Care Note [code = 80748-5] Goal Plan of Care Note [code = 75611-9] Goal Plan of Care Note [code = 19800-4] Goal Plan of Care Note [code = 00945-4] Goal Plan of Care Note [code = 70374-6] Goal Plan of Care Note [code = 86421-0] Goal Plan of Care Note [code = 66465-8] Goal Plan of Care Note [code = 03806-4] Goal Plan of Care Note [code = 97462-0] Goal Plan of Care Note [code = 72403-8] Goal Plan of Care Note [code = 77570-6] Goal Plan of Care Note [code = 12735-4] Goal Plan of Care Note [code = 57147-2] Goal Plan of Care Note [code = 21578-3] Goal Plan of Care Note [code = 26125-2] Goal Plan of Care Note [code = 60621-9] Goal Plan of Care Note [code = 05576-0] Goal Plan of Care Note [code = 16817-9] Goal Plan of Care Note [code = 08858-7] Goal Plan of Care Note [code = 76751-6] Goal Plan of Care Note [code = 14438-7] Goal Plan of Care Note [code = 60962-9] Goal Plan of Care Note [code = 74698-2] Goal Plan of Care Note [code = 54009-5] Goal Plan of Care Note [code = 92160-1] Goal Plan of Care Note [code = 58016-8] Goal Plan of Care Note [code = 45666-0] Goal Plan of Care Note [code = 53888-6] Goal Plan of Care Note [code = 53430-6] Goal Plan of Care Note [code = 43423-3] Goal Plan of Care Note [code = 24557-4] Goal Plan of Care Note [code = 30154-6] Goal Plan of Care Note [code = 91298-5] Goal Plan of Care Note [code = 45891-7] Goal Plan of Care Note [code = 73568-4] Goal Plan of Care Note [code = 58482-7] Goal Plan of Care Note [code = 96776-5] Goal Plan of Care Note [code = 44721-2] Goal Plan of Care Note [code = 28212-7] Goal Plan of Care Note [code = 02177-3] Goal Plan of Care Note [code = 74359-7] Goal Plan of Care Note [code = 12689-5] Goal Plan of Care Note [code = 85593-2] Goal Plan of Care Note [code = 11638-5] Goal Plan of Care Note [code = 51988-2] Goal Plan of Care Note [code = 92815-0] Goal Plan of Care Note [code = 91201-2] Goal Plan of Care Note [code = 78617-5] Goal Plan of Care Note [code = 56120-2] Goal Plan of Care Note [code = 07303-7] Goal Plan of Care Note [code = 90762-5] Goal Plan of Care Note [code = 99663-2] Goal Plan of Care Note [code = 75802-5] Goal Plan of Care Note [code = 65540-3] Goal Plan of Care Note [code = 43771-2] Goal Plan of Care Note [code = 18330-4] Goal Plan of Care Note [code = 90508-8] Goal Plan of Care Note [code = 63736-6] Goal Plan of Care Note [code = 77605-8] Goal Plan of Care Note [code = 14278-2] Goal Plan of Care Note [code = 16093-0] Goal Plan of Care Note [code = 61913-7] Goal Plan of Care Note [code = 22450-4] Goal Plan of Care Note [code = 05348-7] Goal Plan of Care Note [code = 21691-4] Goal Plan of Care Note [code = 96732-6] Goal Plan of Care Note [code = 01010-8] Goal Plan of Care Note [code = 11574-7] Goal Plan of Care Note [code = 12523-6] Goal Plan of Care Note [code = 02301-9] Goal Plan of Care Note [code = 56035-3] Goal Plan of Care Note [code = 05059-5] Goal Plan of Care Note [code = 72995-4] Goal Plan of Care Note [code = 08194-8] Goal Plan of Care Note [code = 63280-0] Goal Plan of Care Note [code = 58591-6] Goal Plan of Care Note [code = 88305-3] Goal Plan of Care Note [code = 50771-1] Goal Plan of Care Note [code = 23004-9] Goal Plan of Care Note [code = 81099-2] Goal Plan of Care Note [code = 60451-4] Goal Plan of Care Note [code = 17090-2] Goal Plan of Care Note [code = 95782-1] Goal Plan of Care Note [code = 85183-2] Goal Plan of Care Note [code = 38824-0] Goal Plan of Care Note [code = 83977-8] Goal Plan of Care Note [code = 49875-4] Goal Plan of Care Note [code = 08817-0] Goal Plan of Care Note [code = 86196-3] Goal Plan of Care Note [code = 77415-4] Goal Plan of Care Note [code = 96547-9] Goal Plan of Care Note [code = 40708-6] Goal Plan of Care Note [code = 00606-2] Goal Plan of Care Note [code = 32569-7] Goal Plan of Care Note [code = 89721-8] Goal Plan of Care Note [code = 40935-0] Goal Plan of Care Note [code = 00090-3] Goal Plan of Care Note [code = 99531-2] Goal Plan of Care Note [code = 51398-4] Goal Plan of Care Note [code = 06249-6] Goal Plan of Care Note [code = 55217-0] Goal Plan of Care Note [code = 51884-5] Goal Plan of Care Note [code = 47141-8] Goal Plan of Care Note [code = 80621-3] Goal Plan of Care Note [code = 45376-6] Goal Plan of Care Note [code = 12386-7] Goal Plan of Care Note [code = 17340-1] Goal Plan of Care Note [code = 06789-4] Goal Plan of Care Note [code = 75946-9] Goal Plan of Care Note [code = 88098-4] Goal Plan of Care Note [code = 40614-2] Goal Plan of Care Note [code = 45181-8] Goal Plan of Care Note [code = 35369-6] Goal Plan of Care Note [code = 23925-2] Goal Plan of Care Note [code = 01135-4] Goal Plan of Care Note [code = 71617-5] Goal Plan of Care Note [code = 71031-6] Goal Plan of Care Note [code = 94190-6] Goal Plan of Care Note [code = 87505-5] Goal Plan of Care Note [code = 11825-0] Goal Plan of Care Note [code = 26628-3] Goal Plan of Care Note [code = 14499-0] Goal Plan of Care Note [code = 59684-5] Goal Plan of Care Note [code = 65746-3] Goal Plan of Care Note [code = 18409-9] Goal Plan of Care Note [code = 10441-6] Goal Plan of Care Note [code = 78563-9] Goal Plan of Care Note [code = 33466-7] Goal Plan of Care Note [code = 58508-7] Goal Plan of Care Note [code = 19530-6] Goal Plan of Care Note [code = 11533-8] Goal Plan of Care Note [code = 29177-5] Goal Plan of Care Note [code = 90498-0] Goal Plan of Care Note [code = 57161-1] Goal Plan of Care Note [code = 95778-9] Goal Plan of Care Note [code = 12728-4] Goal Plan of Care Note [code = 94775-0] Goal Plan of Care Note [code = 27859-4] Goal Plan of Care Note [code = 74842-2] Goal Plan of Care Note [code = 19896-1] Goal Plan of Care Note [code = 54140-2] Goal Plan of Care Note [code = 19001-1] Goal Plan of Care Note [code = 34189-5] Goal Plan of Care Note [code = 95157-5] Goal Plan of Care Note [code = 93424-8] Goal Plan of Care Note [code = 97348-0] Goal Plan of Care Note [code = 72140-5] Goal Plan of Care Note [code = 12262-7] Goal Plan of Care Note [code = 44693-8] Goal Plan of Care Note [code = 57459-8] Goal Plan of Care Note [code = 69087-7] Goal Plan of Care Note [code = 22726-4] Goal Plan of Care Note [code = 49947-4] Goal Plan of Care Note [code = 74529-4] Goal Plan of Care Note [code = 74992-8] Goal Plan of Care Note [code = 73000-5] Goal Plan of Care Note [code = 09096-8] Goal Plan of Care Note [code = 96976-6] Goal Plan of Care Note [code = 31747-1] Goal Plan of Care Note [code = 17094-5] Encounters Start End Encounter Admission Attending Care Care Encounter Source Date/Time Date/Time Type Type Clinicians Facility Department ID 2021-08-14 Emergency [facility] [id number] Univers 07:02:03 ity [facility] 2021-08-14 Emergency [facility] [id number] [facility]14 Emergency [facility] [id number] [facility] 06:49[facility]26 [facility] 2021-08-13 Emergency [facility] [id number] [facility] 19:07:48 [facility] 2021-08-13 Emergency [facility] [id number] [facility]:44[facility] 2023-05-17 2023-05-17 Outpatient SFA SFA [id number] 023 Isra 13:52:25 13:52:25 0802 F Mcfarlan 2023-05-16 2023-05-16 Outpatient SFA SFA [id number] 023 Isra 10:08:10 10:08:10 0801 F Mcfarlan 2023-05-03 2023-05-03 Outpatient SFA SFA [id number] 023 Isra 08:20:35 08:20:35 0719 [facility] 2023-04-28 2023-04-28 Outpatient SFA SFA [id number] 023 Isra 14:18:50 14:18:50 0714 F Mcfarlan 2023-04-19 2023-04-19 Outpatient SFA SFA [id number] 023 Isra 19:21:12 19:21:12 0705 F Ronan 2023-04-17 2023-04-17 Outpatient SFA SFA [id number] 023 Isra 15:01:36 15:01:36 0703 F Ronan 2023-02-23 2023-02-23 Outpatient RASHAAD MERCAD[facility]ANDACE [place] [id number] Isis 08:45:00 08:45:00 Seybol d 2023-01-27 2023-01-27 Outpatient SFA SFA [id number] 023 Isra 08:48:03 08:48:03 0414 F Ronan 2023-01-10 2023-01-10 Outpatient SFA SFA [id number] 023 Isra 16:49:19 16:49:19 0328 F Ronan 2023-01-09 2023-01-09 Outpatient SFA SFA [id number] 023 Isra 10:38:51 10:38:51 0327 F Mcfarlan 2022-12-31 2022-12-31 Outpatient SFA SFA [id number] 023 Isra 11:05:53 11:05:53 0318 F Mcfarlan 2022-12-05 2022-12-05 Outpatient SFA SFA [id number] 023 Isra 08:41:06 08:41:06 0220 F Ronan 2022-10-26 2022-10-26 Outpatient SFA SFA [id number] 023 Isra 10:53:54 10:53:54 0111 [facility] 2022-10-20 2022-10-20 Outpatient SFA SFA [id number] Isra 18:20:52 18:20:52 0105 [facility] 2022-10-20 2022-10-20 Outpatient [id number]- [id number] [id number] 00:00:00 00:00:00 Visit 1h47-6z78 x09-7o60-8 -8dfe-cb4 dfe-cb41b9 5e56o822v 1o140v 2022-10-06 2022-10-06 Outpatient SFA SFA [id number] 022 Isra 13:07:12 13:07:12 1222 F Mcfarlan 2022-10-06 2022-10-06 Outpatient [id number] [id number] 00:00:00 00:00:00 Visit 5h66-0xy9 u25-9vl9-r -adbf-403 dbf-69180u 94cs2xwct d3bcfe 2022-08-09 2022-08-09 Outpatient [facility] [id number] Isra 08:26:28 08:26:28 1025 F Ronan 2022-07-30 2022-07-30 Outpatient [id number]- [id number] u41x9j-1 00:00:00 00:00:00 Visit 922b-4d1f 22b-4d1f-8 -2p32-z9z q32-h8lr41 q1362me94 87ff87 2022-07-27 2022-07-27 Outpatient [facility] [id number] 022 Isra 13:18:03 13:18:03 1012 F Ronan 2022-07-27 2022-07-27 Outpatient [id number]- [id number] [id number] dd4c79-m 00:00:00 00:00:00 Visit w645-3bem 512-4edc-b -a454-058 [id number] 2022-07-23 2022-07-23 [facility] [id number] Univers 15:12:00 16:06:00 MALLORY pace [facility] 2022-07-23 2022-07-23 [facility] [id number] Univers 15:12:00 16:06:00 Mallory OLEA 350.1.13.10 ity [facility] 4.2.7.2.686 [facility] [id number] [facility] [address] 2022-07-23 2022-07-23 Nurse CHICO Russo [id number] Univers 00:00:00 00:00:00 Triage Thelma CORDON 350.1.13.10 it y [facility] 4.2.7.2.686 [facility] [id number] [facility] [address] 2022-07-04 2022-07-04 Outpatient [id number]- [id number] [id number] 00:00:00 00:00:00 Visit 7796-4ded 796-4ded-8 -8202-57f 202-57f9d6 3k4h7j515 s8l539 2021-06-292021-06-29 Outpatient Clinic [facility] 4296-20 210 [place] 02:44:00 02:44:00 914 n [facility] Box 2021-03-05 2021-03-05 Outpatient Clinic [facility] 4296-20 210 [place] 09:41:00 09:41:00 521 n [facility] 2020-09-04 2020-09-04 Emergency X AKOSUA, [facility] ERT [id number] Univers 21:51:00 22:55:00 ELEAZARLATONYA pace [facility] 2020-09-04 2020-09-04 Emergency Akosua, [facility] [id number] 19:15:00 20:48:00 Tristen Olea 350.1.13.10 [place] 4.2.7.2.686 [place] [id number] 084 2020-09-04 2020-09-04 Emergency X AKOSUA, [facility] ERT [id number] Univers 19:15:00 20:48:00 TRISTEN sanjeev [facility] 2020-09-04 2020-09-04 Emergency Schroeder, [facility] [id number] 08:40:00 11:20:00 Keaton Olea 350.1.13.10 [place] 4.2.7.2.686 [place] [id number] 2020-08-25 2020-08-25 Outpatient Genia CHUNG [facility] [id number] Univers 14:30:00 14:30:00 WONDIFUL ity o f [facility] 2020-08-18 2020-08-18 Laboratory Lab, [facility] [id number] 08:30:53 08:55:02 Only Fam [facility] 350.1.13.10 [place] 4.2.7.2.686 [facility] [id number] nal [address] 2020-08-18 2020-08-18 Outpatient Genia RICE [facility] [id number] Univers 08:40:00 08:40:00 HIMANSHU pace [facility] 2020-07-28 2020-07-28 Outpatient Genia CHUNG [facility] [id number] Univers 14:30:00 14:30:00 WONDIFUL ity o f [facility] 2020-02-27 2020-02-27 Outpatient R UNKNOWN, [facility] [id number] Univers 17:00:00 17:00:00 ATTENDING [facility] 2019 2019 Outpatient R UNKNOWN, [facility] [id number] Univers 19:30:00 19:30:00 ATTENDING [facility] Results Test Description Test Time Test Comments Results Result Comments Source HIV 1/2 4TH GEN, RFLX CONF 2023-01-31 02:37:11 Test Item Value Reference Range Interpretation Comme nts HIV 1/2 4TH GEN, RFLX CONF (test code = 3514) NON-REACTIVE NON-REAC TIVE CT/NG, NAAT, [id number] 19:23:24 Test Item Value Reference Range Interpretation Comments CHLAMYDIA, NAAT, NEGATIVE NEGATIVE Testing is performed with URINE (test code Benjamin AMALIA 6800/8800 = 72018) systems usingre al-time polymerase adryan n reaction (PCR) method. A negative result does not exclude low level infection , specimensamplin g error, or collection erro r. GONORRHEA, NAAT, NEGATIVE NEGATIVE Testing is performed with URINE (test code Benjamin AMALIA 6800/8800 = 95619) systems usingre al-time polymerase adryan n reaction (PCR) method. A negative result does not exclude low level infection , specimensamplin g error, or collection erro r. [facility] has important p athology staff changes e ffective 12/14/2022. New pathology staff will provide uninterrupted, excellent patient care an d clinical consultation. S ee URL: [email or web address]. UNLESS OTHE RWISE INDICATED, ALL TESTING PERFORMED AT [facility] [address] [place] [address] LABORATOR Y DIRECTOR: USHA ACEVEDO M.D. [place] NUMBER [id number] CAP ACCREDITATION N O. [id number] VAGINAL PATHOGENS DNA [id number] 15:14:15 Test Item Value Reference Range Interpretation Comments RONNA SPECIES NEGATIVE NEGATIVE (test code = 39043) G. VAGINALIS NEGATIVE NEGATIVE (test code = ) T. VAGINALIS NEGATIVE NEGATIVE Note: The BD A ffirm VPIII (test code = Microbial Ident ification ) Testis a DNA pr obe test intended for us e in the detectionand id entification of Ronna spec ies, Gardnerellavagi nalis and Trichomonas vag inalis nucleic acid. * [facility] has important patho logy staff changes effecti ve 12/14/2022. New pathology staff will provide uninterrupted, excellent patient care an d clinical consultation. S ee URL: [email or web address]. UNLESS OTHE RWISE INDICATED, ALL TESTING PERFORMED AT [facility] [address] [place] [address] LABORATOR Y DIRECTOR: USHA ACEVEDO M.D. IA NUMBER [id number] CAP ACCREDITATION N O. [id number] RPR REFLEX TO T. PALLIDUM - [id number] 08:59:59 Test Item Value Reference Range Interpretation Comments RPR (test code = 72403) NON-REACTIVE NON-REACTIVE RPR TITER (test code = 3500) NOT INDIC. TITER NOT INDIC. CULTURE, [id number] 15:12:08SPECIMEN NUMBER: [id number] CULTURE, URINE SPECIMEN NUMBER: [id number] SPECIMEN COMMENT: URINE SOURCE: URINE REPORT STATUS: FINAL FINAL REPORT: 01/11/2023 <10,000 CFU/ML UROGENITAL CAMILO PRESENT NO CO MMON PATHOGENSENVIRONMENTAL IgE PANEL WITH TOTAL [id number] 19:17:03 Test Item Value Reference Range Interpretation Comments D. PTERONYSSINUS IgE 2.20 KU/L <0.35 H (test code = 73196) D. PTERONYS. CLASS 2 H (test code = 99616) D. FARINAE IgE (test 2.24 KU/L <0.35 H code = 18041) D. FARINAE CLASS (test 2 H code = 01636) CAT EPITHELIUM IgE 0.30 KU/L <0.35 (test code = 91857) CAT EPITHELIUM CLASS 0/1 (test code = 78234) DOG DANDER IgE (test <0.10 KU/L <0.35 code = 35811) DOG DANDER CLASS (test 0 code = 67269) COCKROACH, INDONESIAN IgE 0.11 KU/L <0.35 (test code = 62969) COCKROACH, GRMN CLS 0/1 (test code = 08197) CHICKEN FEATHERS IgE <0.10 KU/L <0.35 (test code = 85459) CHICKEN FEATHER CLS 0 (test code = 55546) GOOSE FEATHERS IgE <0.10 KU/L <0.35 (test code = 68099) GOOSE FEATHERS CLASS 0 (test code = 12594) IMMUNOGLOBULIN E (IgE) 184 KU/L See_Comment [Aut omated message] (test code = 29590) The syst em which generated this result transmit denise reference range : <=219. The refe rence range was not u sed to interpret th is result as normal/abnormal . [facility] [id number] 15:06:22 Test Item Value Reference Range Interpretation [...] 50.00-99.99 o f specific IgE 6 >=100.00 anti bodies Note: Test resu lts reflect expanded analyt ic measurable range. Allergen specific IgE values of 0.10- 0.34 kU/L (class 0/1) are of indeterminate s ignificance and may require specific clinical expert ise for interpretation. Other than peanut and pean ut components, values in this range will not be reported wit h out of range flagging. Testi ng performed on Plair 1000 using ImmunoCAP Speci fic IgE reagents. * If Antibodies are followed by an asterisk (*) they have been developed and their performan ce characteristics determined by [facility]. ([facility]). They have not b een cleared or approved by the U.S. Food and Drug Administra tion (FDA). The FDA has det ermined that such clearance or approval is not necessary. These assays are intended to be used for clinical purpos es. Analyte specific reagen ts were used. They should not be regarded as investigatio nal or for research. [facility] i s regulated under the Clini sosa Laboratory Improvement [place] ndments of 1987 (CLIA) as qualified to perform high co mplexity clinical testin g. [facility] has important patho logy staff changes effecti ve 12/14/2022. New patholo gy staff will provide uninter rupted, excellent patie nt care and clinical consul tation. See URL: [email or web address]. UNLESS OTHER VENTURA INDICATED, ALL TESTING PERFORMED AT [facility] [address] [place] [address] LABORATORY DIRE CTOR: USHA ACEVEDO M.D. IA NUMBER [id number] CAP ACCREDITATION N O. [id number] CULTURE, [id number] 13:58:08SPECIMEN NUMBER: [id number] CULTURE, URINE SPECIMEN NUMBER: [id number] SPECIMEN COMMENT: URINE SOURCE:URINE REPORT STATUS: FINAL ISOLATE NUMBER 1: IDENTIFICATION: 10/28/2022 <10,000 CFU/ML BETA-STREPT OCOCCUS GROUP B ADDITIONAL OBSERVATIONS: PENICILLIN AND AMPICILLIN ARE DRUGS OF CHOICE FOR TREATMENTOF B-HEMOLYTIC STREPTOCOCCAL INFECTIONS. SUSCEPTIBILITY TESTING OF PENICILLIN AND OTHER B-LACTAMS APPROVED BY THE US FOOD AND DRUG ADMINISTRATION FOR TREATMENT OF B-HEMOLYTIC STREPTOCOCCAL INFECTIONS NEED NOT BE PERFORMED ROUTINELY.CT/NG, NAAT, [id number] 13:04:23 Test Item Value Reference Range Interpretation Comments GONORRHEA, NAAT NEGATIVE NEGATIVE Testing is performed with (test code = Benjamin AMALIA 680 44790) systems usingre al-time polymerase adryan n reaction (PCR) method. A negative result does not exclude low level infection , specimensamplin g error, or collection erro r. CHLAMYDIA, NAAT NEGATIVE NEGATIVE Testing is performed with (test code = Benjamin AMALIA 680 48847) systems usingre al-time polymerase adryan n reaction (PCR) method. A negative result does not exclude low level infection , specimensamplin g error, or collection erro r. VAGINAL PATHOGENS DNA [id number] 15:07:41 Test Item Value Reference Range Interpretation Comments RONNA SPECIES NEGATIVE NEGATIVE (test code = 82720) G. VAGINALIS POSITIVE NEGATIVE A (test code = ) T. VAGINALIS NEGATIVE NEGATIVE Note: The BD A ffirm VPIII (test code = Microbial Ident ification ) Testis a DNA pr obe test intended for us e in the detectionand id entification of Ronna spec ies, Gardnerellavagi nalis and Trichomonas vag inalis nucleic acid. HIV 1/2 4TH GEN, RFLX [id number] 05:30:35 Test Item Value Reference Range Interpretation Comments HIV 1/2 4TH GEN, RFLX CONF (test NON-REACTIVE NON-REACTIVE code = 3514) HEPATITIS PANEL, [id number] 05:30:35 Test Item Value Reference Range Interpretation Comments HEPATITIS A IgM (test NON-REACTIVE NON-REACTIVE code = 14096) HEPATITIS B CORE IgM NON-REACTIVE NON-REACTIVE (test code = 4644) HEPATITIS B SURF AG NON-REACTIVE NON-REACTIVE (test code = 2739) HEPATITIS C ANTIBODY NON-REACTIVE NON-REACTIVE (test code = 4675) INTERPRETATION (NOTE) Hepatitis A HEPATITIS A: (test code sero logy shows no = 2552) evidence of acu te hepatitis A. INTERPRETATION (NOTE) Hepatitis B HEPATITIS B: (test code sero logy shows no = 24585) evidence of acu te hepatitis B and no indication of exposure to hepatitis B vir us in the previous yelena eight months. INTERPRETATION (NOTE) Hepatitis C HEPATITIS C: (test code sero logy shows no = 04788) evidence of exposure to hepatitisC viru s at this time. I t can take up to 12 months after exposure tothe hepatitis C vir us for antibodies to become detectab le in the blood in certain patient s. RPR REFLEX TO T. PALLIDUM - [id number] 05:11:36 Test Item Value Reference Range Interpretation Comments RPR (test code = NON-REACTIVE NON-REACTIVE 66178) RPR TITER (test NOT INDIC. NOT INDIC. UNLESS OTHE RWISE code = 3500) TITER INDICATED, ALL TESTING PERFORMED [facility] [address] [place] [address] 7030 4 LABORATORY DIRE CTOR: RODRIGO PISANO M.D. CLIA NUMBER [id number] [place]. [id number] HEMOGLOBIN [id number] 07:47:26 Test Item Value Reference Range Interpretation Comments HEMOGLOBIN A1c (test code = 63999) 5.7 % 4.2-5.6 H CBC W/AUTO DIFF WITH [id number] 06:55:00 Test Item Value Reference Range Interpretation [...] RBCS 0.00 K/UL 0.00-0.11 (test code = 09200) TSH, THIRD [id number] 06:25:46 Test Item Value Reference Range Interpretation Comments TSH, THIRD GENERATION (test code 1.300 UIU/ML 0.400-4.100 = 2821) ALBUMIN/CREATININE RATIO, URINE, [id number] 05:38:18 Test Item Value Reference Range Interpretation Comments CREATININE, URINE, 125.4 MG/DL NOT ESTAB CONC. (test code = 2072) ALBUMIN, URINE, 0.7 MG/DL NOT ESTAB RANDOM (test code = 19694) CALC 6 MG/G <30 Note: ALBUMIN/CREAT, RND Albumin/C reatinine ratio (test code = reference inter aelxa 68585) reflects ADA an d NKF guidelines. UNL ESS OTHERWISE INDIC ATED, ALL TESTING PERFORM ED ATCLINICAL PATH OLOGY LABORATORIES, [facility]. [address] [place] [address] LABORATORY DIRE CTOR: RODRIGO PISANO M.D. CLIA NUMBER [id number] [facility] [place] [id number] COMPREHENSIVE METABOLIC [id number] 04:35:41 Test Item Value Reference Range Interpretation Comments GLUCOSE (test code = 94 MG/DL 70-99 2216) BUN (test code = 9 MG/DL 6-20 2207) CREATININE (test 0.73 MG/DL 0.60-1.30 code = 2214) eGFR (2020 CKD-EPI) 113 >60 (test code = 23753) ML/MIN/1.73 CALC BUN/CREAT (test 12 RATIO 6-28 code = 2235) SODIUM (test code = 139 MEQ/L 881-913 9748) POTASSIUM (test code 3.9 MEQ/L 3.5-5.4 = 2227) CHLORIDE (test code 102 MEQ/L 95-107 = 221) CARBON DIOXIDE (test 25 MEQ/L 19-31 code [...] PHOSPHATASE 53 U/L 40-114 (test code = 2203) AST (test code = 19 U/L 9-40 2217) ALT (test code = 13 U/L 5-40 2218) LIPID [id number] 04:35:41 Test Item Value Reference Range Interpretation [...] MOREINFORMATION , SEE CLIENT ANNOUNCE MENT AT [email or web address] RISK RATIO LDL/HDL 2.67 RATIO <3.22 (test code = 223) CBC W/AUTO [id number] 00:00:00 Test Item Value Reference Range Interpretation [...] NUCLEATED RBCS (test code = 0.00 K/UL 32525) CBC W/AUTO [id number] 00:00:00 Test Item Value Reference Range Interpretation [...] NUCLEATED RBCS (test code = 0.00 K/UL 01775) CBC W/AUTO [id number] 00:00:00 Test Item Value Reference Range Interpretation [...] NUCLEATED RBCS (test code = 0.00 K/UL 07157) COMPREHENSIVE METABOLIC [id number] 00:00:00 Test Item Value Reference Range Interpretation Comments GLUCOSE (test code = 2217) 94 MG/DL BUN (test code = 2208) 9 MG/DL CREATININE (test code = 2214) 0.73 MG/DL eGFR (2020 CKD-EPI) (test 113 ML/MIN/1.73 code = 73070) CALC BUN/CREAT (test code = 12 RATIO [...] code = 2219) 13 U/L COMPREHENSIVE METABOLIC [id number] 00:00:00 Test Item Value Reference Range Interpretation Comments GLUCOSE (test code = 2217) 94 MG/DL BUN (test code = 2208) 9 MG/DL CREATININE (test code = 2214) 0.73 MG/DL eGFR (2020 CKD-EPI) (test 113 ML/MIN/1.73 code = 80148) CALC BUN/CREAT (test code = 12 RATIO [...] (test code = 2219) 13 U/L LIPID [id number] 00:00:00 Test Item Value Reference Range Interpretation Comments CHOLESTEROL (test code = 2210) 222 MG/DL TRIGLYCERIDES (test code = 2232) 272 MG/DL HDL CHOLESTEROL (test code = 2220) 49 MG/DL CALC LDL CHOL (test code = 2237) 131 MG/DL RISK RATIO LDL/HDL (test code = 2.67 RATIO 2238) LIPID [id number] 00:00:00 Test Item Value Reference Range Interpretation Comments CHOLESTEROL (test code = 2210) 222 MG/DL TRIGLYCERIDES (test code = 2232) 272 MG/DL HDL CHOLESTEROL (test code = 2220) 49 MG/DL CALC LDL CHOL (test code = 2237) 131 MG/DL RISK RATIO LDL/HDL (test code = 2.67 RATIO 2238) HEMOGLOBIN [id number] 00:00:00 Test Item Value Reference Range Interpretation Comments HEMOGLOBIN A1c (test code = 46186) 5.7 % HEMOGLOBIN [id number] 00:00:00 Test Item Value Reference Range Interpretation Comments HEMOGLOBIN A1c (test code = 33217) 5.7 % HEMOGLOBIN [id number] 00:00:00 Test Item Value Reference Range Interpretation Comments HEMOGLOBIN A1c (test code = 16993) 5.7 % TSH, THIRD [id number] 00:00:00 Test Item Value Reference Range Interpretation Comments TSH, THIRD GENERATION (test code 1.300 UIU/ML = 2821) TSH, THIRD [id number] 00:00:00 Test Item Value Reference Range Interpretation Comments TSH, THIRD GENERATION (test code 1.300 UIU/ML = 2821) TSH, THIRD [id number] 00:00:00 Test Item Value Reference Range Interpretation Comments TSH, THIRD GENERATION (test code 1.300 UIU/ML = 2821) ALBUMIN/CREATININE RATIO, RANDOM [id number] 00:00:00 Test Item Value Reference Range Interpretation Comments CREATININE, URINE, CONC. (test 125.4 MG/DL code = 2072) ALBUMIN, URINE, RANDOM (test code 0.7 MG/DL = 60400) CALC ALBUMIN/CREAT, RND (test 6 MG/G code = 97487) ALBUMIN/CREATININE RATIO, RANDOM [id number] 00:00:00 Test Item Value Reference Range Interpretation Comments CREATININE, URINE, CONC. (test 125.4 MG/DL code = 2072) ALBUMIN, URINE, RANDOM (test code 0.7 MG/DL = 91050) CALC ALBUMIN/CREAT, RND (test 6 MG/G code = 04380) CBC W/AUTO [id number] 00:00:00 Test Item Value Reference Range Interpretation [...] NUCLEATED RBCS (test code = 0.00 K/UL 52979) CBC W/AUTO [id number] 00:00:00 Test Item Value Reference Range Interpretation [...] NUCLEATED RBCS (test code = 0.00 K/UL 65411) CBC W/AUTO [id number] 00:00:00 Test Item Value Reference Range Interpretation [...] NUCLEATED RBCS (test code = 0.00 K/UL 60648) COMPREHENSIVE METABOLIC [id number] 00:00:00 Test Item Value Reference Range Interpretation Comments GLUCOSE (test code = 2217) 94 MG/DL BUN (test code = 2208) 9 MG/DL CREATININE (test code = 2214) 0.73 MG/DL eGFR (2020 CKD-EPI) (test 113 ML/MIN/1.73 code = 03079) CALC BUN/CREAT (test code = 12 RATIO [...] CALC GLOBULIN (test code = 3.2 G/DL 224) CALC A/G RATIO (test code = 1.4 RATIO 2234) BILIRUBIN, TOTAL (test code = 0.3 MG/DL 2206) ALKALINE PHOSPHATASE (test 53 U/L code = 220) AST (test code = 2218) 19 U/L ALT (test code = 2219) 13 U/L COMPREHENSIVE METABOLIC [id number] 00:00:00 Test Item Value Reference Range Interpretation Comments GLUCOSE (test code = 2217) 94 MG/DL BUN (test code = 2208) 9 MG/DL CREATININE (test code = 2214) 0.73 MG/DL eGFR (2020 CKD-EPI) (test 113 ML/MIN/1.73 code = 24366) CALC BUN/CREAT (test code = 12 RATIO [...] (test code = 2219) 13 U/L LIPID [id number] 00:00:00 Test Item Value Reference Range Interpretation Comments CHOLESTEROL (test code = 2210) 222 MG/DL TRIGLYCERIDES (test code = 2232) 272 MG/DL HDL CHOLESTEROL (test code = 2220) 49 MG/DL CALC LDL CHOL (test code = 2237) 131 MG/DL RISK RATIO LDL/HDL (test code = 2.67 RATIO 2238) LIPID [id number] 00:00:00 Test Item Value Reference Range Interpretation Comments CHOLESTEROL (test code = 2210) 222 MG/DL TRIGLYCERIDES (test code = 2232) 272 MG/DL HDL CHOLESTEROL (test code = 2220) 49 MG/DL CALC LDL CHOL (test code = 2237) 131 MG/DL RISK RATIO LDL/HDL (test code = 2.67 RATIO 2238) HEMOGLOBIN [id number] 00:00:00 Test Item Value Reference Range Interpretation Comments HEMOGLOBIN A1c (test code = 07830) 5.7 % HEMOGLOBIN [id number] 00:00:00 Test Item Value Reference Range Interpretation Comments HEMOGLOBIN A1c (test code = 64028) 5.7 % HEMOGLOBIN [id number] 00:00:00 Test Item Value Reference Range Interpretation Comments HEMOGLOBIN A1c (test code = 41096) 5.7 % TSH, THIRD [id number] 00:00:00 Test Item Value Reference Range Interpretation Comments TSH, THIRD GENERATION (test code 1.300 UIU/ML = 2821) TSH, THIRD [id number] 00:00:00 Test Item Value Reference Range Interpretation Comments TSH, THIRD GENERATION (test code 1.300 UIU/ML = 2821) TSH, THIRD [id number] 00:00:00 Test Item Value Reference Range Interpretation Comments TSH, THIRD GENERATION (test code 1.300 UIU/ML = 2821) ALBUMIN/CREATININE RATIO, RANDOM [id number] 00:00:00 Test Item Value Reference Range Interpretation Comments CREATININE, URINE, CONC. (test 125.4 MG/DL code = 2072) ALBUMIN, URINE, RANDOM (test code 0.7 MG/DL = 17751) CALC ALBUMIN/CREAT, RND (test 6 MG/G code = 16919) ALBUMIN/CREATININE RATIO, RANDOM [id number] 00:00:00 Test Item Value Reference Range Interpretation Comments CREATININE, URINE, CONC. (test 125.4 MG/DL code = 2072) ALBUMIN, URINE, RANDOM (test code 0.7 MG/DL = 81065) CALC ALBUMIN/CREAT, RND (test 6 MG/G code = 10378) VAGINAL PATHOGENS DNA [id number] 14:16:13 Test Item Value Reference Range Interpretation Comments RONNA SPECIES (test NEGATIVE NEGATIVE code = 08230) G. VAGINALIS (test POSITIVE NEGATIVE A code = 21061) T. VAGINALIS (test NEGATIVE NEGATIVE UNLESS O THERWISE code = 32518) INDICATED, ALL TESTING PERFORMED [facility] [address] [place] [address] LABORATORY DIRE CTOR: RODRIGO PISANO M.D. CLIA NUMBER [id number] [facility] [place] [id number] VAGINAL PATHOGENS DNA PANEL [ADDED]2021-10-05 00:00:00 Test Item Value Reference Range Interpretation Comments RONNA SPECIES (test code = ) NEGATIVE G. VAGINALIS (test code = 88042) POSITIVE T. VAGINALIS (test code = 48161) NEGATIVE VAGINAL PATHOGENS DNA PANEL [ADDED]2021-10-05 00:00:00 Test Item Value Reference Range Interpretation Comments RONNA SPECIES (test code = 48385) NEGATIVE G. VAGINALIS (test code = 81638) POSITIVE T. VAGINALIS (test code = 40239) NEGATIVE VAGINAL PATHOGENS DNA PANEL [ADDED]2021-10-05 00:00:00 Test Item Value Reference Range Interpretation Comments RONNA SPECIES (test code = 58821) NEGATIVE G. VAGINALIS (test code = 26910) POSITIVE T. VAGINALIS (test code = 65839) NEGATIVE VAGINAL PATHOGENS DNA PANEL [ADDED]2021-10-05 00:00:00 Test Item Value Reference Range Interpretation Comments RONNA SPECIES (test code = 01899) NEGATIVE G. VAGINALIS (test code = 72565) POSITIVE T. VAGINALIS (test code = 48727) NEGATIVE VAGINAL PATHOGENS DNA PANEL [ADDED]2021-10-05 00:00:00 Test Item Value Reference Range Interpretation Comments RONNA SPECIES (test code = 15540) NEGATIVE G. VAGINALIS (test code = 58472) POSITIVE T. VAGINALIS (test code = 95628) NEGATIVE VAGINAL PATHOGENS DNA PANEL [ADDED]2021-10-05 00:00:00 Test Item Value Reference Range Interpretation Comments RONNA SPECIES (test code = ) NEGATIVE G. VAGINALIS (test code = 24081) POSITIVE T. VAGINALIS (test code = 13583) NEGATIVE VAGINAL PATHOGENS DNA PANEL [ADDED]2021-10-05 00:00:00 Test Item Value Reference Range Interpretation Comments RONNA SPECIES (test code = ) NEGATIVE G. VAGINALIS (test code = 24420) POSITIVE T. VAGINALIS (test code = 04746) NEGATIVE VAGINAL PATHOGENS DNA PANEL [ADDED]2021-10-05 00:00:00 Test Item Value Reference Range Interpretation Comments RONNA SPECIES (test code = ) NEGATIVE G. VAGINALIS (test code = 95246) POSITIVE T. VAGINALIS (test code = 54172) NEGATIVE VAGINAL PATHOGENS DNA PANEL [ADDED]2021-10-05 00:00:00 Test Item Value Reference Range Interpretation Comments RONNA SPECIES (test code = ) NEGATIVE G. VAGINALIS (test code = 62867) POSITIVE T. VAGINALIS (test code = 94067) NEGATIVE VAGINAL PATHOGENS DNA PANEL [ADDED]2021-10-05 00:00:00 Test Item Value Reference Range Interpretation Comments RONNA SPECIES (test code = ) NEGATIVE G. VAGINALIS (test code = 91149) POSITIVE T. VAGINALIS (test code = 28171) NEGATIVE MUMPS IgG AND [id number] 00:00:00 Test Item Value Reference Range Interpretation Comments MUMPS VIRUS IgG (test code = 32.3 AU/mL 78189) MUMPS VIRUS IgM (test code = 4587) 0.35 IV MUMPS IgG AND [id number] 00:00:00 Test Item Value Reference Range Interpretation Comments MUMPS VIRUS IgG (test code = 32.3 AU/mL 33829) MUMPS VIRUS IgM (test code = 4587) 0.35 IV MUMPS IgG AND [id number] 00:00:00 Test Item Value Reference Range Interpretation Comments MUMPS VIRUS IgG (test code = 32.3 AU/mL 65594) MUMPS VIRUS IgM (test code = 4587) 0.35 IV MUMPS IgG AND [id number] 00:00:00 Test Item Value Reference Range Interpretation Comments MUMPS VIRUS IgG (test code = 32.3 AU/mL 94794) MUMPS VIRUS IgM (test code = 4587) 0.35 IV MUMPS IgG AND [id number] 00:00:00 Test Item Value Reference Range Interpretation Comments MUMPS VIRUS IgG (test code = 32.3 AU/mL 23487) MUMPS VIRUS IgM (test code = 4587) 0.35 IV MUMPS IgG AND [id number] 00:00:00 Test Item Value Reference Range Interpretation Comments MUMPS VIRUS IgG (test code = 32.3 AU/mL 87038) MUMPS VIRUS IgM (test code = 4587) 0.35 IV MUMPS IgG AND [id number] 00:00:00 Test Item Value Reference Range Interpretation Comments MUMPS VIRUS IgG (test code = 32.3 AU/mL 66961) MUMPS VIRUS IgM (test code = 4587) 0.35 IV MUMPS IgG AND [id number] 00:00:00 Test Item Value Reference Range Interpretation Comments MUMPS VIRUS IgG (test code = 32.3 AU/mL 94661) MUMPS VIRUS IgM (test code = 4587) 0.35 IV MUMPS IgG AND [id number] 00:00:00 Test Item Value Reference Range Interpretation Comments MUMPS VIRUS IgG (test code = 32.3 AU/mL 66454) MUMPS VIRUS IgM (test code = 4587) 0.35 IV MUMPS IgG AND [id number] 00:00:00 Test Item Value Reference Range Interpretation Comments MUMPS VIRUS IgG (test code = 32.3 AU/mL 90131) MUMPS VIRUS IgM (test code = 4587) 0.35 IV VARICELLA ZOSTER [id number] 00:00:00 Test Item Value Reference Range Interpretation Comments VARICELLA ZOSTER IgG (test code = >2000 INDEX 88819) VARICELLA ZOSTER [id number] 00:00:00 Test Item Value Reference Range Interpretation Comments VARICELLA ZOSTER IgG (test code = >2000 INDEX 30369) RUBEOLA IgG [id number] 00:00:00 Test Item Value Reference Range Interpretation Comments RUBEOLA IgG ANTIBODY (test code = 166.0 AU/ML 97599) RUBEOLA IgG [id number] 00:00:00 Test Item Value Reference Range Interpretation Comments RUBEOLA IgG ANTIBODY (test code = 166.0 AU/ML 65252) VARICELLA ZOSTER [id number] 00:00:00 Test Item Value Reference Range Interpretation Comments VARICELLA ZOSTER IgG (test code = >2000 INDEX 13089) VARICELLA ZOSTER [id number] 00:00:00 Test Item Value Reference Range Interpretation Comments VARICELLA ZOSTER IgG (test code = >2000 INDEX 24449) RUBEOLA IgG [id number] 00:00:00 Test Item Value Reference Range Interpretation Comments RUBEOLA IgG ANTIBODY (test code = 166.0 AU/ML 25909) RUBEOLA IgG [id number] 00:00:00 Test Item Value Reference Range Interpretation Comments RUBEOLA IgG ANTIBODY (test code = 166.0 AU/ML 40723) VARICELLA ZOSTER [id number] 00:00:00 Test Item Value Reference Range Interpretation Comments VARICELLA ZOSTER IgG (test code = >2000 INDEX 72114) VARICELLA ZOSTER [id number] 00:00:00 Test Item Value Reference Range Interpretation Comments VARICELLA ZOSTER IgG (test code = >2000 INDEX 75665) VARICELLA ZOSTER [id number] 00:00:00 Test Item Value Reference Range Interpretation Comments VARICELLA ZOSTER IgG (test code = >2000 INDEX 92102) RUBEOLA IgG [id number] 00:00:00 Test Item Value Reference Range Interpretation Comments RUBEOLA IgG ANTIBODY (test code = 166.0 AU/ML 67492) RUBEOLA IgG [id number] 00:00:00 Test Item Value Reference Range Interpretation Comments RUBEOLA IgG ANTIBODY (test code = 166.0 AU/ML 06667) VARICELLA ZOSTER [id number] 00:00:00 Test Item Value Reference Range Interpretation Comments VARICELLA ZOSTER IgG (test code = >2000 INDEX 46130) VARICELLA ZOSTER [id number] 00:00:00 Test Item Value Reference Range Interpretation Comments VARICELLA ZOSTER IgG (test code = >2000 INDEX 11349) VARICELLA ZOSTER [id number] 00:00:00 Test Item Value Reference Range Interpretation Comments VARICELLA ZOSTER IgG (test code = >2000 INDEX 89776) RUBEOLA IgG [id number] 00:00:00 Test Item Value Reference Range Interpretation Comments RUBEOLA IgG ANTIBODY (test code = 166.0 AU/ML 27201) RUBEOLA IgG [id number] 00:00:00 Test Item Value Reference Range Interpretation Comments RUBEOLA IgG ANTIBODY (test code = 166.0 AU/ML 82342) RUBEOLA IgG [id number] 00:00:00 Test Item Value Reference Range Interpretation Comments RUBEOLA IgG ANTIBODY (test code = 166.0 AU/ML 43490) RUBEOLA IgG [id number] 00:00:00 Test Item Value Reference Range Interpretation Comments RUBEOLA IgG ANTIBODY (test code = 166.0 AU/ML 93475) RUBELLA ANTIBODY [id number] 00:00:00 Test Item Value Reference Range Interpretation Comments RUBELLA ANTIBODY SCREEN (test code 247 IU/ML = 4600) RUBELLA IgG INTERP (test code = REACTIVE 80413) RUBELLA ANTIBODY [id number] 00:00:00 Test Item Value Reference Range Interpretation Comments RUBELLA ANTIBODY SCREEN (test code 247 IU/ML = 4600) RUBELLA IgG INTERP (test code = REACTIVE 67362) RUBELLA ANTIBODY [id number] 00:00:00 Test Item Value Reference Range Interpretation Comments RUBELLA ANTIBODY SCREEN (test code 247 IU/ML = 4600) RUBELLA IgG INTERP (test code = REACTIVE 27554) RUBELLA ANTIBODY [id number] 00:00:00 Test Item Value Reference Range Interpretation Comments RUBELLA ANTIBODY SCREEN (test code 247 IU/ML = 4600) RUBELLA IgG INTERP (test code = REACTIVE 63485) RUBELLA ANTIBODY [id number] 00:00:00 Test Item Value Reference Range Interpretation Comments RUBELLA ANTIBODY SCREEN (test code 247 IU/ML = 4600) RUBELLA IgG INTERP (test code = REACTIVE 93037) RUBELLA ANTIBODY [id number] 00:00:00 Test Item Value Reference Range Interpretation Comments RUBELLA ANTIBODY SCREEN (test code 247 IU/ML = 4600) RUBELLA IgG INTERP (test code = REACTIVE 99170) RUBELLA ANTIBODY [id number] 00:00:00 Test Item Value Reference Range Interpretation Comments RUBELLA ANTIBODY SCREEN (test code 247 IU/ML = 4600) RUBELLA IgG INTERP (test code = REACTIVE 12677) RUBELLA ANTIBODY [id number] 00:00:00 Test Item Value Reference Range Interpretation Comments RUBELLA ANTIBODY SCREEN (test code 247 IU/ML = 4600) RUBELLA IgG INTERP (test code = REACTIVE 34186) RUBELLA ANTIBODY [id number] 00:00:00 Test Item Value Reference Range Interpretation Comments RUBELLA ANTIBODY SCREEN (test code 247 IU/ML = 4600) RUBELLA IgG INTERP (test code = REACTIVE 87150) RUBELLA ANTIBODY [id number] 00:00:00 Test Item Value Reference Range Interpretation Comments RUBELLA ANTIBODY SCREEN (test code 247 IU/ML = 4600) RUBELLA IgG INTERP (test code = REACTIVE 64132) VAGINAL PATHOGENS DNA [id number] 00:00:00 Test Item Value Reference Range Interpretation Comments RONNA SPECIES (test code = ) NEGATIVE G. VAGINALIS (test code = 53924) POSITIVE T. VAGINALIS (test code = 29787) NEGATIVE VAGINAL PATHOGENS DNA [id number] 00:00:00 Test Item Value Reference Range Interpretation Comments RONNA SPECIES (test code = ) NEGATIVE G. VAGINALIS (test code = 44530) POSITIVE T. VAGINALIS (test code = 78283) NEGATIVE GC AND CHLAMYDIA, AMPLIFIED, [id number] 00:00:00 Test Item Value Reference Range Interpretation Comments GONORRHEA, NAAT (test code = 52644) NEGATIVE CHLAMYDIA, NAAT (test code = 51671) NEGATIVE GC AND CHLAMYDIA, AMPLIFIED, [id number] 00:00:00 Test Item Value Reference Range Interpretation Comments GONORRHEA, NAAT (test code = 89099) NEGATIVE CHLAMYDIA, NAAT (test code = 30622) NEGATIVE HIV AB/AG COMBO RFLX [id number] 00:00:00 Test Item Value Reference Range Interpretation Comments HIV 1/2 4TH GEN, RFLX CONF (test NON-REACTIVE code = 3514) HIV AB/AG COMBO RFLX [id number] 00:00:00 Test Item Value Reference Range Interpretation Comments HIV 1/2 4TH GEN, RFLX CONF (test NON-REACTIVE code = 3514) [id number] 00:00:00 Test Item Value Reference Range Interpretation Comments RPR RESULT (test code = NON-REACTIVE 3501) RPR TITER (test code = 3500) NOT INDIC. TITER [id number] 00:00:00 Test Item Value Reference Range Interpretation Comments RPR RESULT (test code = NON-REACTIVE 3501) RPR TITER (test code = 3500) NOT INDIC. TITER [id number] 00:00:00 Test Item Value Reference Range Interpretation Comments RPR RESULT (test code = NON-REACTIVE 3501) RPR TITER (test code = 3500) NOT INDIC. TITER VAGINAL PATHOGENS DNA [id number] 00:00:00 Test Item Value Reference Range Interpretation Comments RONNA SPECIES (test code = ) NEGATIVE G. VAGINALIS (test code = 91972) POSITIVE T. VAGINALIS (test code = ) NEGATIVE VAGINAL PATHOGENS DNA [id number] 00:00:00 Test Item Value Reference Range Interpretation Comments RONNA SPECIES (test code = ) NEGATIVE G. VAGINALIS (test code = 66811) POSITIVE T. VAGINALIS (test code = 91997) NEGATIVE GC AND CHLAMYDIA, AMPLIFIED, [id number] 00:00:00 Test Item Value Reference Range Interpretation Comments GONORRHEA, NAAT (test code = 32840) NEGATIVE CHLAMYDIA, NAAT (test code = 66309) NEGATIVE GC AND CHLAMYDIA, AMPLIFIED, [id number] 00:00:00 Test Item Value Reference Range Interpretation Comments GONORRHEA, NAAT (test code = 85770) NEGATIVE CHLAMYDIA, NAAT (test code = 72096) NEGATIVE HIV AB/AG COMBO RFLX [id number] 00:00:00 Test Item Value Reference Range Interpretation Comments HIV 1/2 4TH GEN, RFLX CONF (test NON-REACTIVE code = 3514) VAGINAL PATHOGENS DNA [id number] 00:00:00 Test Item Value Reference Range Interpretation Comments RONNA SPECIES (test code = ) NEGATIVE G. VAGINALIS (test code = ) POSITIVE T. VAGINALIS (test code = ) NEGATIVE HIV AB/AG COMBO RFLX [id number] 00:00:00 Test Item Value Reference Range Interpretation Comments HIV 1/2 4TH GEN, RFLX CONF (test NON-REACTIVE code = 3514) [id number] 00:00:00 Test Item Value Reference Range Interpretation Comments RPR RESULT (test code = NON-REACTIVE 3501) RPR TITER (test code = 3500) NOT INDIC. TITER [id number] 00:00:00 Test Item Value Reference Range Interpretation Comments RPR RESULT (test code = NON-REACTIVE 3501) RPR TITER (test code = 3500) NOT INDIC. TITER [id number] 00:00:00 Test Item Value Reference Range Interpretation Comments RPR RESULT (test code = NON-REACTIVE 3501) RPR TITER (test code = 3500) NOT INDIC. TITER VAGINAL PATHOGENS DNA [id number] 00:00:00 Test Item Value Reference Range Interpretation Comments RONNA SPECIES (test code = ) NEGATIVE G. VAGINALIS (test code = 01687) POSITIVE T. VAGINALIS (test code = 12607) NEGATIVE VAGINAL PATHOGENS DNA [id number] 00:00:00 Test Item Value Reference Range Interpretation Comments RONNA SPECIES (test code = ) NEGATIVE G. VAGINALIS (test code = 86454) POSITIVE T. VAGINALIS (test code = 19180) NEGATIVE VAGINAL PATHOGENS DNA [id number] 00:00:00 Test Item Value Reference Range Interpretation Comments RONNA SPECIES (test code = ) NEGATIVE G. VAGINALIS (test code = 88863) POSITIVE T. VAGINALIS (test code = ) NEGATIVE GC AND CHLAMYDIA, AMPLIFIED, [id number] 00:00:00 Test Item Value Reference Range Interpretation Comments GONORRHEA, NAAT (test code = 38329) NEGATIVE CHLAMYDIA, NAAT (test code = 42593) NEGATIVE GC AND CHLAMYDIA, AMPLIFIED, [id number] 00:00:00 Test Item Value Reference Range Interpretation Comments GONORRHEA, NAAT (test code = 98276) NEGATIVE CHLAMYDIA, NAAT (test code = 92329) NEGATIVE HIV AB/AG COMBO RFLX [id number] 00:00:00 Test Item Value Reference Range Interpretation Comments HIV 1/2 4TH GEN, RFLX CONF (test NON-REACTIVE code = 3514) HIV AB/AG COMBO RFLX [id number] 00:00:00 Test Item Value Reference Range Interpretation Comments HIV 1/2 4TH GEN, RFLX CONF (test NON-REACTIVE code = 3514) [id number] 00:00:00 Test Item Value Reference Range Interpretation Comments RPR RESULT (test code = NON-REACTIVE 3501) RPR TITER (test code = 3500) NOT INDIC. TITER [id number] 00:00:00 Test Item Value Reference Range Interpretation Comments RPR RESULT (test code = NON-REACTIVE 3501) RPR TITER (test code = 3500) NOT INDIC. TITER [id number] 00:00:00 Test Item Value Reference Range Interpretation Comments RPR RESULT (test code = NON-REACTIVE 3501) RPR TITER (test code = 3500) NOT INDIC. TITER GC AND CHLAMYDIA, AMPLIFIED, [id number] 00:00:00 Test Item Value Reference Range Interpretation Comments GONORRHEA, NAAT (test code = 46621) NEGATIVE CHLAMYDIA, NAAT (test code = 45278) NEGATIVE GC AND CHLAMYDIA, AMPLIFIED, [id number] 00:00:00 Test Item Value Reference Range Interpretation Comments GONORRHEA, NAAT (test code = 74014) NEGATIVE CHLAMYDIA, NAAT (test code = 49579) NEGATIVE VAGINAL PATHOGENS DNA [id number] 00:00:00 Test Item Value Reference Range Interpretation Comments RONNA SPECIES (test code = 64003) NEGATIVE G. VAGINALIS (test code = 55051) POSITIVE T. VAGINALIS (test code = 04990) NEGATIVE VAGINAL PATHOGENS DNA [id number] 00:00:00 Test Item Value Reference Range Interpretation Comments RONNA SPECIES (test code = 57891) NEGATIVE G. VAGINALIS (test code = 85418) POSITIVE T. VAGINALIS (test code = 22958) NEGATIVE GC AND CHLAMYDIA, AMPLIFIED, [id number] 00:00:00 Test Item Value Reference Range Interpretation Comments GONORRHEA, NAAT (test code = 44574) NEGATIVE CHLAMYDIA, NAAT (test code = 22074) NEGATIVE HIV AB/AG COMBO RFLX [id number] 00:00:00 Test Item Value Reference Range Interpretation Comments HIV 1/2 4TH GEN, RFLX CONF (test NON-REACTIVE code = 3514) GC AND CHLAMYDIA, AMPLIFIED, [id number] 00:00:00 Test Item Value Reference Range Interpretation Comments GONORRHEA, NAAT (test code = 74135) NEGATIVE CHLAMYDIA, NAAT (test code = 04416) NEGATIVE HIV AB/AG COMBO RFLX [id number] 00:00:00 Test Item Value Reference Range Interpretation Comments HIV 1/2 4TH GEN, RFLX CONF (test NON-REACTIVE code = 3514) HIV AB/AG COMBO RFLX [id number] 00:00:00 Test Item Value Reference Range Interpretation Comments HIV 1/2 4TH GEN, RFLX CONF (test NON-REACTIVE code = 3514) [id number] 00:00:00 Test Item Value Reference Range Interpretation Comments RPR RESULT (test code = NON-REACTIVE 3501) RPR TITER (test code = 3500) NOT INDIC. TITER [id number] 00:00:00 Test Item Value Reference Range Interpretation Comments RPR RESULT (test code = NON-REACTIVE 3501) RPR TITER (test code = 3500) NOT INDIC. TITER [id number] 00:00:00 Test Item Value Reference Range Interpretation Comments RPR RESULT (test code = NON-REACTIVE 3501) RPR TITER (test code = 3500) NOT INDIC. TITER HIV AB/AG COMBO RFLX [id number] 00:00:00 Test Item Value Reference Range Interpretation Comments HIV 1/2 4TH GEN, RFLX CONF (test NON-REACTIVE code = 3514) [id number] 00:00:00 Test Item Value Reference Range Interpretation Comments RPR RESULT (test code = NON-REACTIVE 3501) RPR TITER (test code = 3500) NOT INDIC. TITER [id number] 00:00:00 Test Item Value Reference Range Interpretation Comments RPR RESULT (test code = NON-REACTIVE 3501) RPR TITER (test code = 3500) NOT INDIC. TITER [id number] 00:00:00 Test Item Value Reference Range Interpretation Comments RPR RESULT (test code = NON-REACTIVE 3501) RPR TITER (test code = 3500) NOT INDIC. TITER [id number] 00:00:00 Test Item Value Reference Range Interpretation Comments TESTOSTERONE (test code = 2830) 34 NG/DL [id number] 00:00:00 Test Item Value Reference Range Interpretation Comments TESTOSTERONE (test code = 2830) 34 NG/DL [id number] 00:00:00 Test Item Value Reference Range Interpretation Comments PROGESTERONE (test code = 2790) 5.24 NG/ML [id number] 00:00:00 Test Item Value Reference Range Interpretation Comments PROGESTERONE (test code = 2790) 5.24 NG/ML HEMOGLOBIN [id number] 00:00:00 Test Item Value Reference Range Interpretation Comments HEMOGLOBIN A1c (test code = 46744) 5.4 % HEMOGLOBIN [id number] 00:00:00 Test Item Value Reference Range Interpretation Comments HEMOGLOBIN A1c (test code = 24470) 5.4 % HEMOGLOBIN [id number] 00:00:00 Test Item Value Reference Range Interpretation Comments HEMOGLOBIN A1c (test code = 65859) 5.4 % LIPID [id number] 00:00:00 Test Item Value Reference Range Interpretation Comments CHOLESTEROL (test code = 2210) 181 MG/DL TRIGLYCERIDES (test code = 2232) 126 MG/DL HDL CHOLESTEROL (test code = 2220) 52 MG/DL CALC LDL CHOL (test code = 2237) 106 MG/DL RISK RATIO LDL/HDL (test code = 2.04 RATIO 2238) LIPID [id number] 00:00:00 Test Item Value Reference Range Interpretation Comments CHOLESTEROL (test code = 2210) 181 MG/DL TRIGLYCERIDES (test code = 2232) 126 MG/DL HDL CHOLESTEROL (test code = 2220) 52 MG/DL CALC LDL CHOL (test code = 2237) 106 MG/DL RISK RATIO LDL/HDL (test code = 2.04 RATIO 2238) COMPREHENSIVE METABOLIC [id number] 00:00:00 Test Item Value Reference Range Interpretation Comments GLUCOSE (test code = 2217) 90 MG/DL BUN (test code = 2208) 16 MG/DL CREATININE (test code = 2214) 0.67 MG/DL eGFR AMER. (test code 137 ML/MIN/1.73 = 04093) eGFR NON- AMER. (test 118 ML/MIN/1.73 code = 38247) CALC BUN/CREAT (test code = 24 RATIO [...] code = 2219) 17 U/L COMPREHENSIVE METABOLIC [id number] 00:00:00 Test Item Value Reference Range Interpretation Comments GLUCOSE (test code = 2217) 90 MG/DL BUN (test code = 2208) 16 MG/DL CREATININE (test code = 2214) 0.67 MG/DL eGFR AMER. (test code 137 ML/MIN/1.73 = 77406) eGFR NON- AMER. (test 118 ML/MIN/1.73 code = 50554) CALC BUN/CREAT (test code = 24 RATIO [...] ALT (test code = 2219) 17 U/L [id number] 00:00:00 Test Item Value Reference Range Interpretation Comments TSH, THIRD GENERATION (test code 1.400 UIU/ML = 2821) [id number] 00:00:00 Test Item Value Reference Range Interpretation Comments TSH, THIRD GENERATION (test code 1.400 UIU/ML = 2821) [id number] 00:00:00 Test Item Value Reference Range Interpretation Comments TSH, THIRD GENERATION (test code 1.400 UIU/ML = 2821) [id number] 00:00:00 Test Item Value Reference Range Interpretation Comments PROLACTIN (test code = 2800) 27.5 NG/ML [id number] 00:00:00 Test Item Value Reference Range Interpretation Comments PROLACTIN (test code = 2800) 27.5 NG/ML FSH + LH [id number] 00:00:00 Test Item Value Reference Range Interpretation Comments FOLLICLE STIM HORMONE (test code = 3.2 IU/L 2700) LUTEINIZING HORMONE (test code = 4.8 IU/L 2776) FSH + LH [id number] 00:00:00 Test Item Value Reference Range Interpretation Comments FOLLICLE STIM HORMONE (test code = 3.2 IU/L 2700) LUTEINIZING HORMONE (test code = 4.8 IU/L 2776) DHEA [id number] 00:00:00 Test Item Value Reference Range Interpretation Comments DHEA SULFATE (test code = 4225) 406 UG/DL DHEA [id number] 00:00:00 Test Item Value Reference Range Interpretation Comments DHEA SULFATE (test code = 4225) 406 UG/DL [id number] 00:00:00 Test Item Value Reference Range Interpretation Comments TESTOSTERONE (test code = 2830) 34 NG/DL [id number] 00:00:00 Test Item Value Reference Range Interpretation Comments TESTOSTERONE (test code = 2830) 34 NG/DL [id number] 00:00:00 Test Item Value Reference Range Interpretation Comments PROGESTERONE (test code = 2790) 5.24 NG/ML [id number] 00:00:00 Test Item Value Reference Range Interpretation Comments PROGESTERONE (test code = 2790) 5.24 NG/ML HEMOGLOBIN [id number] 00:00:00 Test Item Value Reference Range Interpretation Comments HEMOGLOBIN A1c (test code = 22948) 5.4 % HEMOGLOBIN [id number] 00:00:00 Test Item Value Reference Range Interpretation Comments HEMOGLOBIN A1c (test code = 31745) 5.4 % HEMOGLOBIN [id number] 00:00:00 Test Item Value Reference Range Interpretation Comments HEMOGLOBIN A1c (test code = 15377) 5.4 % LIPID [id number] 00:00:00 Test Item Value Reference Range Interpretation Comments CHOLESTEROL (test code = 2210) 181 MG/DL TRIGLYCERIDES (test code = 2232) 126 MG/DL HDL CHOLESTEROL (test code = 2220) 52 MG/DL CALC LDL CHOL (test code = 2237) 106 MG/DL RISK RATIO LDL/HDL (test code = 2.04 RATIO 2238) LIPID [id number] 00:00:00 Test Item Value Reference Range Interpretation Comments CHOLESTEROL (test code = 2210) 181 MG/DL TRIGLYCERIDES (test code = 2232) 126 MG/DL HDL CHOLESTEROL (test code = 2220) 52 MG/DL CALC LDL CHOL (test code = 2237) 106 MG/DL RISK RATIO LDL/HDL (test code = 2.04 RATIO 2238) COMPREHENSIVE METABOLIC [id number] 00:00:00 Test Item Value Reference Range Interpretation Comments GLUCOSE (test code = 2217) 90 MG/DL BUN (test code = 2208) 16 MG/DL CREATININE (test code = 2214) 0.67 MG/DL eGFR AMER. (test code 137 ML/MIN/1.73 = 88765) eGFR NON- AMER. (test 118 ML/MIN/1.73 code = 23458) CALC BUN/CREAT (test code = 24 RATIO [...] code = 2219) 17 U/L COMPREHENSIVE METABOLIC [id number] 00:00:00 Test Item Value Reference Range Interpretation Comments GLUCOSE (test code = 2217) 90 MG/DL BUN (test code = 2208) 16 MG/DL CREATININE (test code = 2214) 0.67 MG/DL eGFR AMER. (test code 137 ML/MIN/1.73 = 43288) eGFR NON- AMER. (test 118 ML/MIN/1.73 code = 30856) CALC BUN/CREAT (test code = 24 RATIO [...] ALT (test code = 2219) 17 U/L [id number] 00:00:00 Test Item Value Reference Range Interpretation Comments TSH, THIRD GENERATION (test code 1.400 UIU/ML = 2821) [id number] 00:00:00 Test Item Value Reference Range Interpretation Comments TSH, THIRD GENERATION (test code 1.400 UIU/ML = 2821) [id number] 00:00:00 Test Item Value Reference Range Interpretation Comments TSH, THIRD GENERATION (test code 1.400 UIU/ML = 2821) [id number] 00:00:00 Test Item Value Reference Range Interpretation Comments PROLACTIN (test code = 2800) 27.5 NG/ML [id number] 00:00:00 Test Item Value Reference Range Interpretation Comments PROLACTIN (test code = 2800) 27.5 NG/ML FSH + LH [id number] 00:00:00 Test Item Value Reference Range Interpretation Comments FOLLICLE STIM HORMONE (test code = 3.2 IU/L 2700) LUTEINIZING HORMONE (test code = 4.8 IU/L 2776) FSH + LH [id number] 00:00:00 Test Item Value Reference Range Interpretation Comments FOLLICLE STIM HORMONE (test code = 3.2 IU/L 2700) LUTEINIZING HORMONE (test code = 4.8 IU/L 2776) DHEA [id number] 00:00:00 Test Item Value Reference Range Interpretation Comments DHEA SULFATE (test code = 4225) 406 UG/DL DHEA [id number] 00:00:00 Test Item Value Reference Range Interpretation Comments DHEA SULFATE (test code = 4225) 406 UG/DL [id number] 00:00:00 Test Item Value Reference Range Interpretation Comments TESTOSTERONE (test code = 2830) 34 NG/DL [id number] 00:00:00 Test Item Value Reference Range Interpretation Comments TESTOSTERONE (test code = 2830) 34 NG/DL [id number] 00:00:00 Test Item Value Reference Range Interpretation Comments PROGESTERONE (test code = 2790) 5.24 NG/ML [id number] 00:00:00 Test Item Value Reference Range Interpretation Comments PROGESTERONE (test code = 2790) 5.24 NG/ML HEMOGLOBIN [id number] 00:00:00 Test Item Value Reference Range Interpretation Comments HEMOGLOBIN A1c (test code = 68491) 5.4 % HEMOGLOBIN [id number] 00:00:00 Test Item Value Reference Range Interpretation Comments HEMOGLOBIN A1c (test code = 65073) 5.4 % HEMOGLOBIN [id number] 00:00:00 Test Item Value Reference Range Interpretation Comments HEMOGLOBIN A1c (test code = 40595) 5.4 % HEMOGLOBIN [id number] 00:00:00 Test Item Value Reference Range Interpretation Comments HEMOGLOBIN A1c (test code = 56458) 5.4 % HEMOGLOBIN [id number] 00:00:00 Test Item Value Reference Range Interpretation Comments HEMOGLOBIN A1c (test code = 62997) 5.4 % HEMOGLOBIN [id number] 00:00:00 Test Item Value Reference Range Interpretation Comments HEMOGLOBIN A1c (test code = 20570) 5.4 % LIPID [id number] 00:00:00 Test Item Value Reference Range Interpretation Comments CHOLESTEROL (test code = 2210) 181 MG/DL TRIGLYCERIDES (test code = 2232) 126 MG/DL HDL CHOLESTEROL (test code = 2220) 52 MG/DL CALC LDL CHOL (test code = 2237) 106 MG/DL RISK RATIO LDL/HDL (test code = 2.04 RATIO 2238) LIPID [id number] 00:00:00 Test Item Value Reference Range Interpretation Comments CHOLESTEROL (test code = 2210) 181 MG/DL TRIGLYCERIDES (test code = 2232) 126 MG/DL HDL CHOLESTEROL (test code = 2220) 52 MG/DL CALC LDL CHOL (test code = 2237) 106 MG/DL RISK RATIO LDL/HDL (test code = 2.04 RATIO 2238) COMPREHENSIVE METABOLIC [id number] 00:00:00 Test Item Value Reference Range Interpretation Comments GLUCOSE (test code = 2217) 90 MG/DL BUN (test code = 2208) 16 MG/DL CREATININE (test code = 2214) 0.67 MG/DL eGFR AMER. (test code 137 ML/MIN/1.73 = 95543) eGFR NON- AMER. (test 118 ML/MIN/1.73 code = 16596) CALC BUN/CREAT (test code = 24 RATIO [...] code = 2219) 17 U/L COMPREHENSIVE METABOLIC [id number] 00:00:00 Test Item Value Reference Range Interpretation Comments GLUCOSE (test code = 2217) 90 MG/DL BUN (test code = 2208) 16 MG/DL CREATININE (test code = 2214) 0.67 MG/DL eGFR AMER. (test code 137 ML/MIN/1.73 = 49216) eGFR NON- AMER. (test 118 ML/MIN/1.73 code = 19938) CALC BUN/CREAT (test code = 24 RATIO [...] ALT (test code = 2219) 17 U/L [id number] 00:00:00 Test Item Value Reference Range Interpretation Comments TSH, THIRD GENERATION (test code 1.400 UIU/ML = 2821) [id number] 00:00:00 Test Item Value Reference Range Interpretation Comments TSH, THIRD GENERATION (test code 1.400 UIU/ML = 2821) [id number] 00:00:00 Test Item Value Reference Range Interpretation Comments TSH, THIRD GENERATION (test code 1.400 UIU/ML = 2821) [id number] 00:00:00 Test Item Value Reference Range Interpretation Comments PROLACTIN (test code = 2800) 27.5 NG/ML [id number] 00:00:00 Test Item Value Reference Range Interpretation Comments PROLACTIN (test code = 2800) 27.5 NG/ML FSH + LH [id number] 00:00:00 Test Item Value Reference Range Interpretation Comments FOLLICLE STIM HORMONE (test code = 3.2 IU/L 2700) LUTEINIZING HORMONE (test code = 4.8 IU/L 2776) FSH + LH [id number] 00:00:00 Test Item Value Reference Range Interpretation Comments FOLLICLE STIM HORMONE (test code = 3.2 IU/L 2700) LUTEINIZING HORMONE (test code = 4.8 IU/L 2776) DHEA [id number] 00:00:00 Test Item Value Reference Range Interpretation Comments DHEA SULFATE (test code = 4225) 406 UG/DL DHEA [id number] 00:00:00 Test Item Value Reference Range Interpretation Comments DHEA SULFATE (test code = 4225) 406 UG/DL [id number] 00:00:00 Test Item Value Reference Range Interpretation Comments TESTOSTERONE (test code = 2830) 34 NG/DL [id number] 00:00:00 Test Item Value Reference Range Interpretation Comments TESTOSTERONE (test code = 2830) 34 NG/DL [id number] 00:00:00 Test Item Value Reference Range Interpretation Comments PROGESTERONE (test code = 2790) 5.24 NG/ML [id number] 00:00:00 Test Item Value Reference Range Interpretation Comments PROGESTERONE (test code = 2790) 5.24 NG/ML LIPID [id number] 00:00:00 Test Item Value Reference Range Interpretation Comments CHOLESTEROL (test code = 2210) 181 MG/DL TRIGLYCERIDES (test code = 2232) 126 MG/DL HDL CHOLESTEROL (test code = 2220) 52 MG/DL CALC LDL CHOL (test code = 2237) 106 MG/DL RISK RATIO LDL/HDL (test code = 2.04 RATIO 2238) LIPID [id number] 00:00:00 Test Item Value Reference Range Interpretation Comments CHOLESTEROL (test code = 2210) 181 MG/DL TRIGLYCERIDES (test code = 2232) 126 MG/DL HDL CHOLESTEROL (test code = 2220) 52 MG/DL CALC LDL CHOL (test code = 2237) 106 MG/DL RISK RATIO LDL/HDL (test code = 2.04 RATIO 2238) HEMOGLOBIN [id number] 00:00:00 Test Item Value Reference Range Interpretation Comments HEMOGLOBIN A1c (test code = 70099) 5.4 % HEMOGLOBIN [id number] 00:00:00 Test Item Value Reference Range Interpretation Comments HEMOGLOBIN A1c (test code = 25315) 5.4 % HEMOGLOBIN [id number] 00:00:00 Test Item Value Reference Range Interpretation Comments HEMOGLOBIN A1c (test code = 66677) 5.4 % LIPID [id number] 00:00:00 Test Item Value Reference Range Interpretation Comments CHOLESTEROL (test code = 2210) 181 MG/DL TRIGLYCERIDES (test code = 2232) 126 MG/DL HDL CHOLESTEROL (test code = 2220) 52 MG/DL CALC LDL CHOL (test code = 2237) 106 MG/DL RISK RATIO LDL/HDL (test code = 2.04 RATIO 2238) LIPID [id number] 00:00:00 Test Item Value Reference Range Interpretation Comments CHOLESTEROL (test code = 2210) 181 MG/DL TRIGLYCERIDES (test code = 2232) 126 MG/DL HDL CHOLESTEROL (test code = 2220) 52 MG/DL CALC LDL CHOL (test code = 2237) 106 MG/DL RISK RATIO LDL/HDL (test code = 2.04 RATIO 2238) COMPREHENSIVE METABOLIC [id number] 00:00:00 Test Item Value Reference Range Interpretation Comments GLUCOSE (test code = 2217) 90 MG/DL BUN (test code = 2208) 16 MG/DL CREATININE (test code = 2214) 0.67 MG/DL eGFR AMER. (test code 137 ML/MIN/1.73 = 17814) eGFR NON- AMER. (test 118 ML/MIN/1.73 code = 84153) CALC BUN/CREAT (test code = 24 RATIO [...] code = 2219) 17 U/L COMPREHENSIVE METABOLIC [id number] 00:00:00 Test Item Value Reference Range Interpretation Comments GLUCOSE (test code = 2217) 90 MG/DL BUN (test code = 2208) 16 MG/DL CREATININE (test code = 2214) 0.67 MG/DL eGFR AMER. (test code 137 ML/MIN/1.73 = 81524) eGFR NON- AMER. (test 118 ML/MIN/1.73 code = 52642) CALC BUN/CREAT (test code = 24 RATIO [...] ALT (test code = 2219) 17 U/L [id number] 00:00:00 Test Item Value Reference Range Interpretation Comments TSH, THIRD GENERATION (test code 1.400 UIU/ML = 2821) [id number] 00:00:00 Test Item Value Reference Range Interpretation Comments TSH, THIRD GENERATION (test code 1.400 UIU/ML = 2821) COMPREHENSIVE METABOLIC [id number] 00:00:00 Test Item Value Reference Range Interpretation Comments GLUCOSE (test code = 2217) 90 MG/DL BUN (test code = 2208) 16 MG/DL CREATININE (test code = 2214) 0.67 MG/DL eGFR AMER. (test code 137 ML/MIN/1.73 = 07446) eGFR NON- AMER. (test 118 ML/MIN/1.73 code = 27400) CALC BUN/CREAT (test code = 24 RATIO [...] ALT (test code = 2219) 17 U/L [id number] 00:00:00 Test Item Value Reference Range Interpretation Comments TSH, THIRD GENERATION (test code 1.400 UIU/ML = 2821) [id number] 00:00:00 Test Item Value Reference Range Interpretation Comments PROLACTIN (test code = 2800) 27.5 NG/ML [id number] 00:00:00 Test Item Value Reference Range Interpretation Comments PROLACTIN (test code = 2800) 27.5 NG/ML FSH + LH [id number] 00:00:00 Test Item Value Reference Range Interpretation Comments FOLLICLE STIM HORMONE (test code = 3.2 IU/L 2700) LUTEINIZING HORMONE (test code = 4.8 IU/L 2776) FSH + LH [id number] 00:00:00 Test Item Value Reference Range Interpretation Comments FOLLICLE STIM HORMONE (test code = 3.2 IU/L 2700) LUTEINIZING HORMONE (test code = 4.8 IU/L 2776) DHEA [id number] 00:00:00 Test Item Value Reference Range Interpretation Comments DHEA SULFATE (test code = 4225) 406 UG/DL DHEA [id number] 00:00:00 Test Item Value Reference Range Interpretation Comments DHEA SULFATE (test code = 4225) 406 UG/DL [id number] 00:00:00 Test Item Value Reference Range Interpretation Comments TESTOSTERONE (test code = 2830) 34 NG/DL [id number] 00:00:00 Test Item Value Reference Range Interpretation Comments TESTOSTERONE (test code = 2830) 34 NG/DL [id number] 00:00:00 Test Item Value Reference Range Interpretation Comments PROGESTERONE (test code = 2790) 5.24 NG/ML [id number] 00:00:00 Test Item Value Reference Range Interpretation Comments PROGESTERONE (test code = 2790) 5.24 NG/ML COMPREHENSIVE METABOLIC [id number] 00:00:00 Test Item Value Reference Range Interpretation Comments GLUCOSE (test code = 2217) 90 MG/DL BUN (test code = 2208) 16 MG/DL CREATININE (test code = 2214) 0.67 MG/DL eGFR AMER. (test code 137 ML/MIN/1.73 = 73463) eGFR NON- AMER. (test 118 ML/MIN/1.73 code = 53636) CALC BUN/CREAT (test code = 24 RATIO [...] ALKALINE PHOSPHATASE (test 41 U/L code = 220) AST (test code = 2218) 19 U/L ALT (test code = 2219) 17 U/L [id number] 00:00:00 Test Item Value Reference Range Interpretation Comments TSH, THIRD GENERATION (test code 1.400 UIU/ML = 2821) [id number] 00:00:00 Test Item Value Reference Range Interpretation Comments TSH, THIRD GENERATION (test code 1.400 UIU/ML = 2821) [id number] 00:00:00 Test Item Value Reference Range Interpretation Comments TSH, THIRD GENERATION (test code 1.400 UIU/ML = 2821) [id number] 00:00:00 Test Item Value Reference Range Interpretation Comments PROLACTIN (test code = 2800) 27.5 NG/ML [id number] 00:00:00 Test Item Value Reference Range Interpretation Comments PROLACTIN (test code = 2800) 27.5 NG/ML FSH + LH [id number] 00:00:00 Test Item Value Reference Range Interpretation Comments FOLLICLE STIM HORMONE (test code = 3.2 IU/L 2700) LUTEINIZING HORMONE (test code = 4.8 IU/L 2776) FSH + LH [id number] 00:00:00 Test Item Value Reference Range Interpretation Comments FOLLICLE STIM HORMONE (test code = 3.2 IU/L 2700) LUTEINIZING HORMONE (test code = 4.8 IU/L 2776) DHEA [id number] 00:00:00 Test Item Value Reference Range Interpretation Comments DHEA SULFATE (test code = 4225) 406 UG/DL DHEA [id number] 00:00:00 Test Item Value Reference Range Interpretation Comments DHEA SULFATE (test code = 4225) 406 UG/DL VAGINAL PATHOGENS DNA [id number] 00:00:00 Test Item Value Reference Range Interpretation Comments RONNA SPECIES (test code = 10715) NEGATIVE G. VAGINALIS (test code = 08853) POSITIVE T. VAGINALIS (test code = 78972) NEGATIVE VAGINAL PATHOGENS DNA [id number] 00:00:00 Test Item Value Reference Range Interpretation Comments RONNA SPECIES (test code = 34977) NEGATIVE G. VAGINALIS (test code = 29549) POSITIVE T. VAGINALIS (test code = 83008) NEGATIVE VAGINAL PATHOGENS DNA [id number] 00:00:00 Test Item Value Reference Range Interpretation Comments RONNA SPECIES (test code = 27528) NEGATIVE G. VAGINALIS (test code = 99467) POSITIVE T. VAGINALIS (test code = 71059) NEGATIVE VAGINAL PATHOGENS DNA [id number] 00:00:00 Test Item Value Reference Range Interpretation Comments RONNA SPECIES (test code = 15469) NEGATIVE G. VAGINALIS (test code = 99999) POSITIVE T. VAGINALIS (test code = 24530) NEGATIVE VAGINAL PATHOGENS DNA [id number] 00:00:00 Test Item Value Reference Range Interpretation Comments RONNA SPECIES (test code = 35328) NEGATIVE G. VAGINALIS (test code = 26905) POSITIVE T. VAGINALIS (test code = 69851) NEGATIVE VAGINAL PATHOGENS DNA [id number] 00:00:00 Test Item Value Reference Range Interpretation Comments RONNA SPECIES (test code = 64609) NEGATIVE G. VAGINALIS (test code = 27844) POSITIVE T. VAGINALIS (test code = 95353) NEGATIVE VAGINAL PATHOGENS DNA [id number] 00:00:00 Test Item Value Reference Range Interpretation Comments RONNA SPECIES (test code = 20660) NEGATIVE G. VAGINALIS (test code = 02331) POSITIVE T. VAGINALIS (test code = 97775) NEGATIVE VAGINAL PATHOGENS DNA [id number] 00:00:00 Test Item Value Reference Range Interpretation Comments RONNA SPECIES (test code = 47192) NEGATIVE G. VAGINALIS (test code = 06475) POSITIVE T. VAGINALIS (test code = 74971) NEGATIVE VAGINAL PATHOGENS DNA [id number] 00:00:00 Test Item Value Reference Range Interpretation Comments RONNA SPECIES (test code = 16828) NEGATIVE G. VAGINALIS (test code = 96115) POSITIVE T. VAGINALIS (test code = 17270) NEGATIVE VAGINAL PATHOGENS DNA [id number] 00:00:00 Test Item Value Reference Range Interpretation Comments RONNA SPECIES (test code = 92364) NEGATIVE G. VAGINALIS (test code = 31818) POSITIVE T. VAGINALIS (test code = 98824) NEGATIVE VAGINAL PATHOGENS DNA [id number] 00:00:00 Test Item Value Reference Range Interpretation Comments RONNA SPECIES (test code = 30237) NEGATIVE G. VAGINALIS (test code = 50932) POSITIVE T. VAGINALIS (test code = 62424) NEGATIVE VAGINAL PATHOGENS DNA [id number] 00:00:00 Test Item Value Reference Range Interpretation Comments RONNA SPECIES (test code = 30656) NEGATIVE G. VAGINALIS (test code = 59773) POSITIVE T. VAGINALIS (test code = 52707) NEGATIVE VAGINAL PATHOGENS DNA [id number] 00:00:00 Test Item Value Reference Range Interpretation Comments RONNA SPECIES (test code = 32962) NEGATIVE G. VAGINALIS (test code = 62420) POSITIVE T. VAGINALIS (test code = 83981) NEGATIVE VAGINAL PATHOGENS DNA [id number] 00:00:00 Test Item Value Reference Range Interpretation Comments RONNA SPECIES (test code = 63605) NEGATIVE G. VAGINALIS (test code = 85517) POSITIVE T. VAGINALIS (test code = 15670) NEGATIVE VAGINAL PATHOGENS DNA [id number] 00:00:00 Test Item Value Reference Range Interpretation Comments RONNA SPECIES (test code = 68694) NEGATIVE G. VAGINALIS (test code = 08593) POSITIVE T. VAGINALIS (test code = 45772) NEGATIVE VAGINAL PATHOGENS DNA [id number] 00:00:00 Test Item Value Reference Range Interpretation Comments RONNA SPECIES (test code = 48503) NEGATIVE G. VAGINALIS (test code = 02313) POSITIVE T. VAGINALIS (test code = 10539) NEGATIVE VAGINAL PATHOGENS DNA [id number] 00:00:00 Test Item Value Reference Range Interpretation Comments RONNA SPECIES (test code = 29547) NEGATIVE G. VAGINALIS (test code = 48363) POSITIVE T. VAGINALIS (test code = 15609) NEGATIVE VAGINAL PATHOGENS DNA [id number] 00:00:00 Test Item Value Reference Range Interpretation Comments RONNA SPECIES (test code = ) NEGATIVE G. VAGINALIS (test code = 60784) POSITIVE T. VAGINALIS (test code = ) NEGATIVE VAGINAL PATHOGENS DNA [id number] 00:00:00 Test Item Value Reference Range Interpretation Comments RONNA SPECIES (test code = ) NEGATIVE G. VAGINALIS (test code = 64783) POSITIVE T. VAGINALIS (test code = ) NEGATIVE VAGINAL PATHOGENS DNA [id number] 00:00:00 Test Item Value Reference Range Interpretation Comments RONNA SPECIES (test code = ) NEGATIVE G. VAGINALIS (test code = 76033) POSITIVE T. VAGINALIS (test code = ) NEGATIVE CBC W/AUTO [id number] 00:00:00 Test Item Value Reference Range Interpretation [...] code = 1015) 314 K/UL CBC W/AUTO [id number] 00:00:00 Test Item Value Reference Range Interpretation [...] code = 1015) 314 K/UL CBC W/AUTO [id number] 00:00:00 Test Item Value Reference Range Interpretation [...] (test code = 1015) 314 K/UL LIPID [id number] 00:00:00 Test Item Value Reference Range Interpretation Comments CHOLESTEROL (test code = 2210) 202 MG/DL TRIGLYCERIDES (test code = 2232) 169 MG/DL HDL CHOLESTEROL (test code = 2220) 62 MG/DL CALC LDL CHOL (test code = 2237) 111 MG/DL RISK RATIO LDL/HDL (test code = 1.79 RATIO 2238) LIPID [id number] 00:00:00 Test Item Value Reference Range Interpretation Comments CHOLESTEROL (test code = 2210) 202 MG/DL TRIGLYCERIDES (test code = 2232) 169 MG/DL HDL CHOLESTEROL (test code = 2220) 62 MG/DL CALC LDL CHOL (test code = 2237) 111 MG/DL RISK RATIO LDL/HDL (test code = 1.79 RATIO 2238) COMPREHENSIVE METABOLIC [id number] 00:00:00 Test Item Value Reference Range Interpretation Comments GLUCOSE (test code = 2217) 88 MG/DL BUN (test code = 2208) 20 MG/DL CREATININE (test code = 2214) 0.98 MG/DL eGFR AMER. (test code 90 ML/MIN/1.73 = 95071) eGFR NON- AMER. (test 77 ML/MIN/1.73 code = 87899) CALC BUN/CREAT (test code = 20 RATIO [...] code = 2219) 13 U/L COMPREHENSIVE METABOLIC [id number] 00:00:00 Test Item Value Reference Range Interpretation Comments GLUCOSE (test code = 2217) 88 MG/DL BUN (test code = 2208) 20 MG/DL CREATININE (test code = 2214) 0.98 MG/DL eGFR AMER. (test code 90 ML/MIN/1.73 = 19862) eGFR NON- AMER. (test 77 ML/MIN/1.73 code = 58498) CALC BUN/CREAT (test code = 20 RATIO [...] ALT (test code = 2219) 13 U/L [id number] 00:00:00 Test Item Value Reference Range Interpretation Comments TSH, THIRD GENERATION (test code 0.587 UIU/ML = 2821) [id number] 00:00:00 Test Item Value Reference Range Interpretation Comments TSH, THIRD GENERATION (test code 0.587 UIU/ML = 2821) [id number] 00:00:00 Test Item Value Reference Range Interpretation Comments TSH, THIRD GENERATION (test code 0.587 UIU/ML = 2821) CBC W/AUTO [id number] 00:00:00 Test Item Value Reference Range Interpretation [...] code = 1015) 314 K/UL CBC W/AUTO [id number] 00:00:00 Test Item Value Reference Range Interpretation [...] code = 1015) 314 K/UL CBC W/AUTO [id number] 00:00:00 Test Item Value Reference Range Interpretation [...] (test code = 1015) 314 K/UL LIPID [id number] 00:00:00 Test Item Value Reference Range Interpretation Comments CHOLESTEROL (test code = 2210) 202 MG/DL TRIGLYCERIDES (test code = 2232) 169 MG/DL HDL CHOLESTEROL (test code = 2220) 62 MG/DL CALC LDL CHOL (test code = 2237) 111 MG/DL RISK RATIO LDL/HDL (test code = 1.79 RATIO 2238) LIPID [id number] 00:00:00 Test Item Value Reference Range Interpretation Comments CHOLESTEROL (test code = 2210) 202 MG/DL TRIGLYCERIDES (test code = 2232) 169 MG/DL HDL CHOLESTEROL (test code = 2220) 62 MG/DL CALC LDL CHOL (test code = 2237) 111 MG/DL RISK RATIO LDL/HDL (test code = 1.79 RATIO 2238) COMPREHENSIVE METABOLIC [id number] 00:00:00 Test Item Value Reference Range Interpretation Comments GLUCOSE (test code = 2217) 88 MG/DL BUN (test code = 2208) 20 MG/DL CREATININE (test code = 2214) 0.98 MG/DL eGFR AMER. (test code 90 ML/MIN/1.73 = 13789) eGFR NON- AMER. (test 77 ML/MIN/1.73 code = 34690) CALC BUN/CREAT (test code = 20 RATIO [...] code = 2219) 13 U/L COMPREHENSIVE METABOLIC [id number] 00:00:00 Test Item Value Reference Range Interpretation Comments GLUCOSE (test code = 2217) 88 MG/DL BUN (test code = 2208) 20 MG/DL CREATININE (test code = 2214) 0.98 MG/DL eGFR AMER. (test code 90 ML/MIN/1.73 = 25915) eGFR NON- AMER. (test 77 ML/MIN/1.73 code = 52941) CALC BUN/CREAT (test code = 20 RATIO [...] ALT (test code = 2219) 13 U/L [id number] 00:00:00 Test Item Value Reference Range Interpretation Comments TSH, THIRD GENERATION (test code 0.587 UIU/ML = 2821) [id number] 00:00:00 Test Item Value Reference Range Interpretation Comments TSH, THIRD GENERATION (test code 0.587 UIU/ML = 2821) [id number] 00:00:00 Test Item Value Reference Range Interpretation Comments TSH, THIRD GENERATION (test code 0.587 UIU/ML = 2821) CBC W/AUTO [id number] 00:00:00 Test Item Value Reference Range Interpretation [...] code = 1015) 314 K/UL CBC W/AUTO [id number] 00:00:00 Test Item Value Reference Range Interpretation [...] code = 1015) 314 K/UL CBC W/AUTO [id number] 00:00:00 Test Item Value Reference Range Interpretation [...] code = 1015) 314 K/UL CBC W/AUTO [id number] 00:00:00 Test Item Value Reference Range Interpretation [...] (test code = 1015) 314 K/UL LIPID [id number] 00:00:00 Test Item Value Reference Range Interpretation Comments CHOLESTEROL (test code = 2210) 202 MG/DL TRIGLYCERIDES (test code = 2232) 169 MG/DL HDL CHOLESTEROL (test code = 2220) 62 MG/DL CALC LDL CHOL (test code = 2237) 111 MG/DL RISK RATIO LDL/HDL (test code = 1.79 RATIO 2238) LIPID [id number] 00:00:00 Test Item Value Reference Range Interpretation Comments CHOLESTEROL (test code = 2210) 202 MG/DL TRIGLYCERIDES (test code = 2232) 169 MG/DL HDL CHOLESTEROL (test code = 2220) 62 MG/DL CALC LDL CHOL (test code = 2237) 111 MG/DL RISK RATIO LDL/HDL (test code = 1.79 RATIO 2238) CBC W/AUTO [id number] 00:00:00 Test Item Value Reference Range Interpretation [...] code = 1015) 314 K/UL COMPREHENSIVE METABOLIC [id number] 00:00:00 Test Item Value Reference Range Interpretation Comments GLUCOSE (test code = 2217) 88 MG/DL BUN (test code = 2208) 20 MG/DL CREATININE (test code = 2214) 0.98 MG/DL eGFR AMER. (test code 90 ML/MIN/1.73 = 74946) eGFR NON- AMER. (test 77 ML/MIN/1.73 code = 04295) CALC BUN/CREAT (test code = 20 RATIO [...] code = 2219) 13 U/L COMPREHENSIVE METABOLIC [id number] 00:00:00 Test Item Value Reference Range Interpretation Comments GLUCOSE (test code = 2217) 88 MG/DL BUN (test code = 2208) 20 MG/DL CREATININE (test code = 2214) 0.98 MG/DL eGFR AMER. (test code 90 ML/MIN/1.73 = 33362) eGFR NON- AMER. (test 77 ML/MIN/1.73 code = 01659) CALC BUN/CREAT (test code = 20 RATIO 2235) SODIUM (test code = 2231) 138 MEQ/L POTASSIUM (test code = 2228) 4.2 MEQ/L CHLORIDE (test code = 2215) 101 MEQ/L CARBON DIOXIDE (test code = 25 MEQ/L 6) CALCIUM (test code = 2209) 9.6 MG/DL [...] ALT (test code = 2219) 13 U/L [id number] 00:00:00 Test Item Value Reference Range Interpretation Comments TSH, THIRD GENERATION (test code 0.587 UIU/ML = 2821) [id number] 00:00:00 Test Item Value Reference Range Interpretation Comments TSH, THIRD GENERATION (test code 0.587 UIU/ML = 2821) [id number] 00:00:00 Test Item Value Reference Range Interpretation Comments TSH, THIRD GENERATION (test code 0.587 UIU/ML = 2821) CBC W/AUTO [id number] 00:00:00 Test Item Value Reference Range Interpretation [...] (test code = 1015) 314 K/UL LIPID [id number] 00:00:00 Test Item Value Reference Range Interpretation Comments CHOLESTEROL (test code = 2210) 202 MG/DL TRIGLYCERIDES (test code = 2232) 169 MG/DL HDL CHOLESTEROL (test code = 2220) 62 MG/DL CALC LDL CHOL (test code = 2237) 111 MG/DL RISK RATIO LDL/HDL (test code = 1.79 RATIO 2238) LIPID [id number] 00:00:00 Test Item Value Reference Range Interpretation Comments CHOLESTEROL (test code = 2210) 202 MG/DL TRIGLYCERIDES (test code = 2232) 169 MG/DL HDL CHOLESTEROL (test code = 2220) 62 MG/DL CALC LDL CHOL (test code = 2237) 111 MG/DL RISK RATIO LDL/HDL (test code = 1.79 RATIO 2238) CBC W/AUTO [id number] 00:00:00 Test Item Value Reference Range Interpretation [...] code = 1015) 314 K/UL CBC W/AUTO [id number] 00:00:00 Test Item Value Reference Range Interpretation [...] code = 1015) 314 K/UL CBC W/AUTO [id number] 00:00:00 Test Item Value Reference Range Interpretation [...] (test code = 1015) 314 K/UL LIPID [id number] 00:00:00 Test Item Value Reference Range Interpretation Comments CHOLESTEROL (test code = 2210) 202 MG/DL TRIGLYCERIDES (test code = 2232) 169 MG/DL HDL CHOLESTEROL (test code = 2220) 62 MG/DL CALC LDL CHOL (test code = 2237) 111 MG/DL RISK RATIO LDL/HDL (test code = 1.79 RATIO 2238) LIPID [id number] 00:00:00 Test Item Value Reference Range Interpretation Comments CHOLESTEROL (test code = 2210) 202 MG/DL TRIGLYCERIDES (test code = 2232) 169 MG/DL HDL CHOLESTEROL (test code = 2220) 62 MG/DL CALC LDL CHOL (test code = 2237) 111 MG/DL RISK RATIO LDL/HDL (test code = 1.79 RATIO 2238) COMPREHENSIVE METABOLIC [id number] 00:00:00 Test Item Value Reference Range Interpretation Comments GLUCOSE (test code = 2217) 88 MG/DL BUN (test code = 2208) 20 MG/DL CREATININE (test code = 2214) 0.98 MG/DL eGFR AMER. (test code 90 ML/MIN/1.73 = 26761) eGFR NON- AMER. (test 77 ML/MIN/1.73 code = 01098) CALC BUN/CREAT (test code = 20 RATIO [...] code = 2219) 13 U/L COMPREHENSIVE METABOLIC [id number] 00:00:00 Test Item Value Reference Range Interpretation Comments GLUCOSE (test code = 2217) 88 MG/DL BUN (test code = 2208) 20 MG/DL CREATININE (test code = 2214) 0.98 MG/DL eGFR AMER. (test code 90 ML/MIN/1.73 = 13789) eGFR NON- AMER. (test 77 ML/MIN/1.73 code = 84336) CALC BUN/CREAT (test code = 20 RATIO [...] code = 2219) 13 U/L COMPREHENSIVE METABOLIC [id number] 00:00:00 Test Item Value Reference Range Interpretation Comments GLUCOSE (test code = 2217) 88 MG/DL BUN (test code = 2208) 20 MG/DL CREATININE (test code = 2214) 0.98 MG/DL eGFR AMER. (test code 90 ML/MIN/1.73 = 91778) eGFR NON- AMER. (test 77 ML/MIN/1.73 code = 57923) CALC BUN/CREAT (test code = 20 RATIO [...] ALT (test code = 2219) 13 U/L [id number] 00:00:00 Test Item Value Reference Range Interpretation Comments TSH, THIRD GENERATION (test code 0.587 UIU/ML = 2821) [id number] 00:00:00 Test Item Value Reference Range Interpretation Comments TSH, THIRD GENERATION (test code 0.587 UIU/ML = 2821) [id number] 00:00:00 Test Item Value Reference Range Interpretation Comments TSH, THIRD GENERATION (test code 0.587 UIU/ML = 2821) COMPREHENSIVE METABOLIC [id number] 00:00:00 Test Item Value Reference Range Interpretation Comments GLUCOSE (test code = 2217) 88 MG/DL BUN (test code = 2208) 20 MG/DL CREATININE (test code = 2214) 0.98 MG/DL eGFR AMER. (test code 90 ML/MIN/1.73 = 64462) eGFR NON- AMER. (test 77 ML/MIN/1.73 code = 37224) CALC BUN/CREAT (test code = 20 RATIO [...] ALT (test code = 2219) 13 U/L [id number] 00:00:00 Test Item Value Reference Range Interpretation Comments TSH, THIRD GENERATION (test code 0.587 UIU/ML = 2821) [id number] 00:00:00 Test Item Value Reference Range Interpretation Comments TSH, THIRD GENERATION (test code 0.587 UIU/ML = 2821) [id number] 00:00:00 Test Item Value Reference Range Interpretation Comments TSH, THIRD GENERATION (test code 0.587 UIU/ML = 2821) PAP TEST, THINPREP, [id number] 00:00:00 Test Item Value Reference Range Interpretation Comments SOURCE: (test code = Endocervical 8001) SLIDES: (test code = 1 8011) LMP: (test code = 10/2020 80) SPECIMEN ADEQUACY: (NOTE) (test code = 89973) INTERPRETATION: (test NILM/NO EPITH. code = 09324) ABNORMALITY;SEE BELOW OTHER COMMENTS: (test (NOTE) code = 8081) FARMWORKER GRAIN: JUDSON Fonseca (test code = 8101) (ASCP) LOCATION: (test code (NOTE) = 27265) CPT: (test code = (NOTE) 8140) PAP TEST, THINPREP, [id number] 00:00:00 Test Item Value Reference Range Interpretation Comments SOURCE: (test code = Endocervical 8001) SLIDES: (test code = 1 8011) LMP: (test code = 10/2020 80) SPECIMEN ADEQUACY: (NOTE) (test code = 95150) INTERPRETATION: (test NILM/NO EPITH. code = 87495) ABNORMALITY;SEE BELOW OTHER COMMENTS: (test (NOTE) code = 8081) FARMWORKER GRAIN: JUDSON Fonseca (test code = 8101) (ASCP) LOCATION: (test code (NOTE) = 97584) CPT: (test code = (NOTE) 8140) PAP TEST, THINPREP, [id number] 00:00:00 Test Item Value Reference Range Interpretation Comments SOURCE: (test code = Endocervical 8001) SLIDES: (test code = 1 8011) LMP: (test code = 10/2020 80) SPECIMEN ADEQUACY: (NOTE) (test code = 97455) INTERPRETATION: (test NILM/NO EPITH. code = 63288) ABNORMALITY;SEE BELOW OTHER COMMENTS: (test (NOTE) code = 8081) FARMWORKER GRAIN: JUDSON Fonseca (test code = 8101) (ASCP) LOCATION: (test code (NOTE) = 24076) CPT: (test code = (NOTE) 8140) PAP TEST, THINPREP, [id number] 00:00:00 Test Item Value Reference Range Interpretation Comments SOURCE: (test code = Endocervical 800) SLIDES: (test code = 1 8011) LMP: (test code = 10/2020 8021) SPECIMEN ADEQUACY: (NOTE) (test code = 25648) INTERPRETATION: (test NILM/NO EPITH. code = 97239) ABNORMALITY;SEE BELOW OTHER COMMENTS: (test (NOTE) code = 8081) FARMWORKER GRAIN: JUDSON Fonseca (test code = 8101) (ASCP) LOCATION: (test code (NOTE) = 79663) CPT: (test code = (NOTE) 8140) PAP TEST, THINPREP, [id number] 00:00:00 Test Item Value Reference Range Interpretation Comments SOURCE: (test code = Endocervical 8000) SLIDES: (test code = 1 8011) LMP: (test code = 10/2020) SPECIMEN ADEQUACY: (NOTE) (test code = 30896) INTERPRETATION: (test NILM/NO EPITH. code = 27799) ABNORMALITY;SEE BELOW OTHER COMMENTS: (test (NOTE) code = 8081) FARMWORKER GRAIN: JUDSON Fonseca (test code = 8101) (ASCP) LOCATION: (test code (NOTE) = 50487) CPT: (test code = (NOTE) 8140) PAP TEST, THINPREP, [id number] 00:00:00 Test Item Value Reference Range Interpretation Comments SOURCE: (test code = Endocervical 8000) SLIDES: (test code = 1 8011) LMP: (test code = 10/2020 80) SPECIMEN ADEQUACY: (NOTE) (test code = 62843) INTERPRETATION: (test NILM/NO EPITH. code = 31509) ABNORMALITY;SEE BELOW OTHER COMMENTS: (test (NOTE) code = 8081) FARMWORKER GRAIN: JUDSON Fonseca (test code = 8101) (ASCP) LOCATION: (test code (NOTE) = 34776) CPT: (test code = (NOTE) 8140) PAP TEST, THINPREP, [id number] 00:00:00 Test Item Value Reference Range Interpretation Comments SOURCE: (test code = Endocervical 800) SLIDES: (test code = 1 801) LMP: (test code = 10/2020) SPECIMEN ADEQUACY: (NOTE) (test code = 33879) INTERPRETATION: (test NILM/NO EPITH. code = 86956) ABNORMALITY;SEE BELOW OTHER COMMENTS: (test (NOTE) code = 8081) FARMWORKER GRAIN: JUDSON Fonseca (test code = 8101) (ASCP) LOCATION: (test code (NOTE) = 35093) CPT: (test code = (NOTE) 8140) PAP TEST, THINPREP, [id number] 00:00:00 Test Item Value Reference Range Interpretation Comments SOURCE: (test code = Endocervical 800) SLIDES: (test code = 8010) LMP: (test code = 10/2020) SPECIMEN ADEQUACY: (NOTE) (test code = 03131) INTERPRETATION: (test NILM/NO EPITH. code = 71773) ABNORMALITY;SEE BELOW OTHER COMMENTS: (test (NOTE) code = 8081) FARMWORKER GRAIN: JUDSON Fonseca (test code = 8101) (ASCP) LOCATION: (test code (NOTE) = 97267) CPT: (test code = (NOTE) 8140) PAP TEST, THINPREP, [id number] 00:00:00 Test Item Value Reference Range Interpretation Comments SOURCE: (test code = Endocervical 800) SLIDES: (test code = 8010) LMP: (test code = 10/2020) SPECIMEN ADEQUACY: (NOTE) (test code = 48330) INTERPRETATION: (test NILM/NO EPITH. code = 49029) ABNORMALITY;SEE BELOW OTHER COMMENTS: (test (NOTE) code = 8081) FARMWORKER GRAIN: JUDSON Fonseca (test code = 8101) (ASCP) LOCATION: (test code (NOTE) = 59805) CPT: (test code = (NOTE) 8140) PAP TEST, THINPREP, [id number] 00:00:00 Test Item Value Reference Range Interpretation Comments SOURCE: (test code = Endocervical 800) SLIDES: (test code = 8010) LMP: (test code = 10/2020) SPECIMEN ADEQUACY: (NOTE) (test code = 29564) INTERPRETATION: (test NILM/NO EPITH. code = 35296) ABNORMALITY;SEE BELOW OTHER COMMENTS: (test (NOTE) code = 8081) FARMWORKER GRAIN: JUDSON Fonseca (test code = 8101) (ASCP) LOCATION: (test code (NOTE) = 60271) CPT: (test code = (NOTE) 8140) GC AND CHLAMYDIA AMPLIFIED, [id number] 00:00:00 Test Item Value Reference Range Interpretation Comments GONORRHEA, TMA (test code = 50844) NEGATIVE CHLAMYDIA, TMA (test code = 67153) NEGATIVE VAGINAL PATHOGENS DNA [id number] 00:00:00 Test Item Value Reference Range Interpretation Comments RONNA SPECIES (test code = 39103) NEGATIVE G. VAGINALIS (test code = 15420) POSITIVE T. VAGINALIS (test code = 18596) NEGATIVE GC AND CHLAMYDIA AMPLIFIED, [id number] 00:00:00 Test Item Value Reference Range Interpretation Comments GONORRHEA, TMA (test code = 42159) NEGATIVE CHLAMYDIA, TMA (test code = 11537) NEGATIVE VAGINAL PATHOGENS DNA [id number] 00:00:00 Test Item Value Reference Range Interpretation Comments RONNA SPECIES (test code = 80630) NEGATIVE G. VAGINALIS (test code = 65117) POSITIVE T. VAGINALIS (test code = 30638) NEGATIVE HPV HIGH RISK WITH GENOTYPE, [id number] 00:00:00 Test Item Value Reference Range Interpretation Comments HPV HIGH RISK INTERP (test code = NEGATIVE 51994) HPV 16 (test code = 97144) NEGATIVE HPV 18 (test code = 33443) NEGATIVE HPV, HR, OTHER GENOTYPES (test code NEGATIVE = 42714) HPV HIGH RISK WITH GENOTYPE, [id number] 00:00:00 Test Item Value Reference Range Interpretation Comments HPV HIGH RISK INTERP (test code = NEGATIVE 98812) HPV 16 (test code = 25273) NEGATIVE HPV 18 (test code = 85639) NEGATIVE HPV, HR, OTHER GENOTYPES (test code NEGATIVE = 62408) GC AND CHLAMYDIA AMPLIFIED, [id number] 00:00:00 Test Item Value Reference Range Interpretation Comments GONORRHEA, TMA (test code = 13172) NEGATIVE CHLAMYDIA, TMA (test code = 03826) NEGATIVE VAGINAL PATHOGENS DNA [id number] 00:00:00 Test Item Value Reference Range Interpretation Comments RONNA SPECIES (test code = ) NEGATIVE G. VAGINALIS (test code = ) POSITIVE T. VAGINALIS (test code = ) NEGATIVE GC AND CHLAMYDIA AMPLIFIED, [id number] 00:00:00 Test Item Value Reference Range Interpretation Comments GONORRHEA, TMA (test code = 87217) NEGATIVE CHLAMYDIA, TMA (test code = 10564) NEGATIVE VAGINAL PATHOGENS DNA [id number] 00:00:00 Test Item Value Reference Range Interpretation Comments RONNA SPECIES (test code = ) NEGATIVE G. VAGINALIS (test code = 08397) POSITIVE T. VAGINALIS (test code = ) NEGATIVE HPV HIGH RISK WITH GENOTYPE, [id number] 00:00:00 Test Item Value Reference Range Interpretation Comments HPV HIGH RISK INTERP (test code = NEGATIVE 03086) HPV 16 (test code = 42782) NEGATIVE HPV 18 (test code = 37524) NEGATIVE HPV, HR, OTHER GENOTYPES (test code NEGATIVE = 36256) HPV HIGH RISK WITH GENOTYPE, [id number] 00:00:00 Test Item Value Reference Range Interpretation Comments HPV HIGH RISK INTERP (test code = NEGATIVE 80664) HPV 16 (test code = 32109) NEGATIVE HPV 18 (test code = 64541) NEGATIVE HPV, HR, OTHER GENOTYPES (test code NEGATIVE = 83358) GC AND CHLAMYDIA AMPLIFIED, [id number] 00:00:00 Test Item Value Reference Range Interpretation Comments GONORRHEA, TMA (test code = 41578) NEGATIVE CHLAMYDIA, TMA (test code = 49680) NEGATIVE VAGINAL PATHOGENS DNA [id number] 00:00:00 Test Item Value Reference Range Interpretation Comments RONNA SPECIES (test code = ) NEGATIVE G. VAGINALIS (test code = ) POSITIVE T. VAGINALIS (test code = ) NEGATIVE GC AND CHLAMYDIA AMPLIFIED, [id number] 00:00:00 Test Item Value Reference Range Interpretation Comments GONORRHEA, TMA (test code = 50401) NEGATIVE CHLAMYDIA, TMA (test code = 52438) NEGATIVE VAGINAL PATHOGENS DNA [id number] 00:00:00 Test Item Value Reference Range Interpretation Comments RONNA SPECIES (test code = ) NEGATIVE G. VAGINALIS (test code = 62590) POSITIVE T. VAGINALIS (test code = 38910) NEGATIVE GC AND CHLAMYDIA AMPLIFIED, [id number] 00:00:00 Test Item Value Reference Range Interpretation Comments GONORRHEA, TMA (test code = 99362) NEGATIVE CHLAMYDIA, TMA (test code = 23963) NEGATIVE GC AND CHLAMYDIA AMPLIFIED, [id number] 00:00:00 Test Item Value Reference Range Interpretation Comments GONORRHEA, TMA (test code = 26019) NEGATIVE CHLAMYDIA, TMA (test code = 95377) NEGATIVE VAGINAL PATHOGENS DNA [id number] 00:00:00 Test Item Value Reference Range Interpretation Comments RONNA SPECIES (test code = ) NEGATIVE G. VAGINALIS (test code = 74284) POSITIVE T. VAGINALIS (test code = 82101) NEGATIVE VAGINAL PATHOGENS DNA [id number] 00:00:00 Test Item Value Reference Range Interpretation Comments RONNA SPECIES (test code = ) NEGATIVE G. VAGINALIS (test code = 05618) POSITIVE T. VAGINALIS (test code = 73730) NEGATIVE HPV HIGH RISK WITH GENOTYPE, [id number] 00:00:00 Test Item Value Reference Range Interpretation Comments HPV HIGH RISK INTERP (test code = NEGATIVE 33377) HPV 16 (test code = 43209) NEGATIVE HPV 18 (test code = 23753) NEGATIVE HPV, HR, OTHER GENOTYPES (test code NEGATIVE = 95769) HPV HIGH RISK WITH GENOTYPE, [id number] 00:00:00 Test Item Value Reference Range Interpretation Comments HPV HIGH RISK INTERP (test code = NEGATIVE 10797) HPV 16 (test code = 98640) NEGATIVE HPV 18 (test code = 55525) NEGATIVE HPV, HR, OTHER GENOTYPES (test code NEGATIVE = 97933) VAGINAL PATHOGENS DNA [id number] 00:00:00 Test Item Value Reference Range Interpretation Comments RONNA SPECIES (test code = ) NEGATIVE G. VAGINALIS (test code = 91281) POSITIVE T. VAGINALIS (test code = 17976) NEGATIVE GC AND CHLAMYDIA AMPLIFIED, [id number] 00:00:00 Test Item Value Reference Range Interpretation Comments GONORRHEA, TMA (test code = 64778) NEGATIVE CHLAMYDIA, TMA (test code = 20540) NEGATIVE GC AND CHLAMYDIA AMPLIFIED, [id number] 00:00:00 Test Item Value Reference Range Interpretation Comments GONORRHEA, TMA (test code = 32901) NEGATIVE CHLAMYDIA, TMA (test code = 97464) NEGATIVE VAGINAL PATHOGENS DNA [id number] 00:00:00 Test Item Value Reference Range Interpretation Comments RONNA SPECIES (test code = ) NEGATIVE G. VAGINALIS (test code = ) POSITIVE T. VAGINALIS (test code = 00889) NEGATIVE HPV HIGH RISK WITH GENOTYPE, [id number] 00:00:00 Test Item Value Reference Range Interpretation Comments HPV HIGH RISK INTERP (test code = NEGATIVE 70115) HPV 16 (test code = 72970) NEGATIVE HPV 18 (test code = 56970) NEGATIVE HPV, HR, OTHER GENOTYPES (test code NEGATIVE = 58530) HPV HIGH RISK WITH GENOTYPE, [id number] 00:00:00 Test Item Value Reference Range Interpretation Comments HPV HIGH RISK INTERP (test code = NEGATIVE 28908) HPV 16 (test code = 86822) NEGATIVE HPV 18 (test code = 38746) NEGATIVE HPV, HR, OTHER GENOTYPES (test code NEGATIVE = 54084) HPV HIGH RISK WITH GENOTYPE, [id number] 00:00:00 Test Item Value Reference Range Interpretation Comments HPV HIGH RISK INTERP (test code = NEGATIVE 51727) HPV 16 (test code = 78452) NEGATIVE HPV 18 (test code = 90739) NEGATIVE HPV, HR, OTHER GENOTYPES (test code NEGATIVE = 78067) HPV HIGH RISK WITH GENOTYPE, [id number] 00:00:00 Test Item Value Reference Range Interpretation Comments HPV HIGH RISK INTERP (test code = NEGATIVE 64679) HPV 16 (test code = 80487) NEGATIVE HPV 18 (test code = 75364) NEGATIVE HPV, HR, OTHER GENOTYPES (test code NEGATIVE = 42468)
[2023-05-25] MEDS ORDERED: BENZONATATE 100 MG CAP PO ONE (01:11)
--- NOTE | 2023-05-25 02:25 | EDPHYS ---
Physician Documentation [facility] Name: Zack Persaud Age: 32 yrs Sex: Female : 1990 Arrival Date: 05/24/2023 Time: 23:57 Bed DIS3 Private MD: ED Physician Jose Alfredo Samayoa HPI: 05/25 00:25 This 32 yrs old Black Female presents to ER via Ambulatory with complaints of Cough, cp Breathing Difficulty. 00:25 The patient or guardian reports cough, that is intermittent, with no sputum. Onset: The cp symptoms/episode began/occurred last night. Severity of symptoms: in the emergency department the symptoms are unchanged, despite home interventions. Associated signs and symptoms: Pertinent positives: sore throat, shortness of breath, Pertinent negatives: chest pain, fever. Historical: - Allergies: 00:09 Adderall; cm10 00:09 Codeine; cm10 00:09 Fentanyl; cm10 00:09 Geodon; cm10 - PMHx: 00:09 Anxiety; depressive disorder; cm10 - PSHx: 00:09 tubal ligation; cm10 - Immunization history:: Adult Immunizations. - Social history:: Smoking status: Reported history of juuling and/or vaping. ROS: 00:30 Constitutional: Negative for body aches, chills, fever, poor PO intake. cp 00:30 Eyes: Negative for injury, pain, redness, and discharge. cp 00:30 ENT: Positive for sore throat, Negative for drainage from ear(s), ear pain, difficulty swallowing, difficulty handling secretions. 00:30 Cardiovascular: Negative for chest pain, edema, palpitations. 00:30 Respiratory: Positive for cough, with no reported sputum, shortness of breath, Negative for wheezing. 00:30 Abdomen/GI: Negative for abdominal pain, vomiting, diarrhea, constipation. 00:30 Skin: Negative for rash. 00:30 Neuro: Negative for altered mental status, dizziness, headache, weakness. 00:30 All other systems are negative. Exam: 00:33 Head/Face: Normocephalic, atraumatic. cp 00:33 Constitutional: The patient appears in no acute distress, alert, awake, non-toxic, well developed, well nourished. 00:33 Eyes: Periorbital structures: appear normal, Conjunctiva: normal, no exudate, no cp injection, Sclera: no appreciated abnormality, Lids and lashes: appear normal, bilaterally. 00:33 ENT: External ear(s): are unremarkable, Ear canal(s): are normal, clear, TM's: dullness, bilaterally, Nose: is normal, Mouth: Lips: moist, Oral mucosa: moist, Posterior pharynx: Airway: no evidence of obstruction, patent, Tonsils: no enlargement, no exudate, erythema, that is mild, exudate, is not appreciated, Voice: is normal. 00:33 Neck: ROM/movement: is normal, is supple, without pain, no range of motions limitations, no meningismus. 00:33 Chest/axilla: Inspection: normal. 00:33 Cardiovascular: Rate: normal, Rhythm: regular. 00:33 Respiratory: the patient does not display signs of respiratory distress, Respirations: normal, no use of accessory muscles, no retractions, labored breathing, is not present, Breath sounds: decreased breath sounds, are not appreciated, stridor, is not appreciated, + upper airway congestion. wheezing: is not appreciated. 00:33 Abdomen/GI: Exam negative for discomfort, distension, guarding, Inspection: abdomen appears normal. 00:33 Skin: no rash present. Vital Signs: 00:08 BP 138 / 93; Pulse 90; Resp 18; Temp 99.2; Pulse Ox 100% ; Weight 80.74 kg; Height 5 cm10 ft. 3 in. ; Pain 0/10; 00:08 Body Mass Index 31.53 (80.74 kg, 160.02 cm) cm10 00:08 Pain Scale: Adult cm10 MDM: 00:11 Patient medically screened. cp 02:25 Data reviewed: vital signs, nurses notes, lab test result(s), and as a result, I will cp discharge patient. 02:25 Differential Diagnosis: Bronchitis Influenza Asthma Exacerbation Viral Syndrome cp Pneumonia. I considered the following discharge prescriptions or medication management in the emergency department Medications were administered in the Emergency Department. See MAR. Counseling: I had a detailed discussion with the patient and/or guardian regarding: the historical points, exam findings, and any diagnostic results supporting the discharge/admit diagnosis, lab results, to return to the emergency department if symptoms worsen or persist or if there are any questions or concerns that arise at home. Response to treatment: the patient's symptoms have mildly improved after treatment, and as a result, I will discharge patient. 05/25 00:18 Order name: Strep; Complete Time: : cp 05/25 00:18 Order name: Influenza Screen (a \T\ B); Complete Time: : cp 05/25 00:18 Order name: COVID-19 SARS RT PCR; Complete Time: 02: cp 05/25 01:33 Order name: Throat Culture EDMS Administered Medications: 01:04 Drug: Tessalon Perle PO 200 mg Route: PO; cm10 02:00 Follow up: Response: No adverse reaction; Marked relief of symptoms pf1 Disposition Summary: 05/25/23 02:25 Discharge Ordered Location: Home cp Problem: new cp Symptoms: have improved cp Condition: Stable cp Diagnosis - Cough cp - Nasal congestion cp Followup: cp - With: Private Physician - When: 2 - 3 days - Reason: Worsening of condition Discharge Instructions: - Discharge Summary Sheet cp - Cough, Adult cp - Form - Excuse from Work, School, or Physical Activity cp Forms: - Medication Reconciliation Form cp - Thank You Letter cp - Antibiotic Education cp - Prescription Opioid Use cp - Patient Portal Instructions cp Prescriptions: - Bromfed DM 2-30-10 mg/5 mL Oral syrup - administer 10 milliliter by ORAL route every 8 hours as needed for cold cp symptoms; 180 milliliter; Refills: 0, Product Selection Permitted - albuterol sulfate 90 mcg/actuation Inhalation HFA Aerosol Inhaler - inhale 1 puff by INHALATION route every 6 hours as needed for bronchospasm; cp administer via ventilator; 1 unit; Refills: 0, Product Selection Permitted Signatures: Dispatcher [employer] Jose Alfredo Bui PA PA cp Reyna Mayberry RN RN cm10 Lisha Schmidt RN pf1 Corrections: (The following items were deleted from the chart) 05/26 01:05/24 00:33 Constitutional: The patient appears in no acute distress, alert, awake, cp non-toxic, well developed, well nourished, cp 05/26 01:05/24 00:33 Head/Face: Normocephalic, atraumatic. cp cp
--- NOTE | 2023-05-25 02:25 | ER ---
Nurse's Notes [facility] Name: Zack Persaud Age: 32 yrs Sex: Female : 1990 Arrival Date: 05/24/2023 Time: 23:57 Bed DIS3 Private MD: Diagnosis: Cough;Nasal congestion Presentation: 05/25 00:08 Chief complaint: Patient states: cough and congestion onset last night at work. Pt cm10 states that the cough is dry and that she has taken over the counter medications with no relief. Pt denies any sick contacts. Coronavirus screen: Vaccine status: Patient reports receiving the 2nd dose of the covid vaccine. Ebola Screen: Patient denies travel to an Ebola-affected area in the 21 days before illness onset. No symptoms or risks identified at this time. Initial Sepsis Screen: Does the patient meet any 2 criteria? No. Patient's initial sepsis screen is negative. Does the patient have a suspected source of infection? No. Patient's initial sepsis screen is negative. Risk Assessment: Do you want to hurt yourself or someone else? Patient reports no desire to harm self or others. Onset of symptoms was May 25, 2023. 00:08 Method Of Arrival: Ambulatory cm10 00:08 Acuity: SHERRI 4 cm10 Triage Assessment: 02:41 General: Appears in no apparent distress. comfortable, Behavior is calm, cooperative. cm10 Respiratory: Onset: The symptoms/episode began/occurred gradually, the patient has mild shortness of breath. Respiratory: Reports cough that is non-productive, dry. Historical: - Allergies: 00:09 Adderall; cm10 00:09 Codeine; cm10 00:09 Fentanyl; cm10 00:09 Geodon; cm10 - PMHx: 00:09 Anxiety; depressive disorder; cm10 - PSHx: 00:09 tubal ligation; cm10 - Immunization history:: Adult Immunizations. - Social history:: Smoking status: Reported history of juuling and/or vaping. Screenin:40 [facility] ED Fall Risk Assessment (Adult) History of falling in the last 3 months, cm10 including since admission No falls in past 3 months (0 pts) Confusion or Disorientation No (0 pts) Intoxicated or Sedated No (0 pts) Impaired Gait No (0 pts) Mobility Assist Device Used No (0 pt) Altered Elimination No (0 pt) Score/Fall Risk Level 0 - 2 = Low Risk Oriented to surroundings, Maintained a safe environment, Hourly rounding (assess needs \T\ fall precautionary measures) done. Abuse screen: Denies threats or abuse. Denies injuries from another. Nutritional screening: No deficits noted. Tuberculosis screening: No symptoms or risk factors identified. Assessment: 02:39 General: Appears in no apparent distress. comfortable, Behavior is calm, cooperative. cm10 Pain: Denies pain. Neuro: No deficits noted. Level of Consciousness is awake, alert, obeys commands, Oriented to person, place, time, situation. Respiratory: Airway is patent Respiratory effort is even, unlabored, Respiratory pattern is regular, symmetrical. Vital Signs: 00:08 BP 138 / 93; Pulse 90; Resp 18; Temp 99.2; Pulse Ox 100% ; Weight 80.74 kg; Height 5 cm10 ft. 3 in. ; Pain 0/10; 00:08 Body Mass Index 31.53 (80.74 kg, 160.02 cm) cm10 00:08 Pain Scale: Adult cm10 ED Course: 00:00 Patient arrived in ED. ag3 00:04 Jose Alfredo Bui PA is PHCP. cp 00:04 Jose Alfredo Samayoa MD is Attending Physician. cp 00:09 Triage completed. cm10 00:10 Arm band placed on Patient placed in waiting room. cm10 01:04 COVID-19 SARS RT PCR Sent. cm10 01:04 Influenza Screen (a \T\ B) Sent. cm10 01:04 Strep Sent. cm10 02:40 Patient has correct armband on for positive identification. Provided Education on: N/A. cm10 02:40 No provider procedures requiring assistance completed. Patient did not have IV access cm10 during this emergency room visit. Administered Medications: 01:04 Drug: Tessalon Perle PO 200 mg Route: PO; cm10 02:00 Follow up: Response: No adverse reaction; Marked relief of symptoms pf1 Medication: 02:40 VIS not applicable for this client. cm10 Outcome: 02:25 Discharge ordered by . cp 02:40 Discharged to home ambulatory. cm10 02:40 Condition: good 02:40 Discharge instructions given to patient, Instructed on discharge instructions, follow up and referral plans. medication usage, Demonstrated understanding of instructions, follow-up care, medications. 02:41 Prescriptions given X 2. cm10 02:41 Patient left the ED. cm10 Signatures: Jose Alfredo Bui PA PA cp Gomez, Alice ag3 Lisha Schmidt RN RN pf1 Reyna Mayberry RN RN cm10
[2023-05-25 02:45] VITALS: BP 138/93; TEMP 99.2; O2SAT 100
== END 2023-05-25 02:41 | disposition home or self-care (01) ==
LOC: ER 23:57
DX: R05.9 Cough, unspecified (principal); R09.81 Nasal congestion; Z20.822 Contact with and (suspected) exposure to COVID-19; Z88.5 Allergy status to narcotic agent; Z88.8 Allergy status to other drugs, medicaments and biological substances
CPT/HCPCS: 87070; 87081; 87635; 87804; 99283

== ENCOUNTER 2023-09-03 06:15 | Emergency (ER) | payer OTHER ==
--- OUTSIDE RECORDS SUMMARY | 2023-09-03 06:23 | XMS REPORT | Continuity of Care Document ---
:1990 Author Organization [facility] t Address [address] [place] [address] Care Team Providers Name Role Phone Asked, No Pcp Primary Care Physician Unavailable ANEL BOJORQUEZ Attending Clinician Unavailable OBI-QUIN YAMILET Attending Clinician Unavailable OBYAMILET KIDD Attending Clinician Unavailable Anel Bojorquez MD Attending Clinician Jase Joe MD Attending Clinician Doctor Unassigned, [place] Attending Clinician Unavailable RASHAAD MERCADO Attending Clinician Unavailable MALLORY ATKINS Attending Clinician Unavailable Mallory Atkins DO Attending Clinician Thelma Russo RN Attending Clinician Unavailable Clinic Attending Clinician Unavailable TRISTEN RAMOS Attending Clinician Unavailable Tristen Puckett Attending Clinician Keaton Schroeder DO Attending Clinician ATTILA CHUNG Attending Clinician Unavailable Lab, Adc Fam Pob I Attending Clinician Unavailable HIMANSHU RICE Attending Clinician Unavailable UNKNOWN, ATTENDING Attending Clinician Unavailable ANEL BOJORQUEZ Admitting Clinician Unavailable Clinic Admitting Clinician Unavailable Payers Payer Name Policy Type Policy Number Effective Date Expiration Date Raciel sidhu [facility] [id number] 2020 DUAL COMPLETE HMO 00:00:00 MEDICAID OF [place] [id number] 2019 00:00:00 MEDICARE PART A \T\ [id number] 2011 B 00:00:00 Problems Condition Condition Condition Status Onset Resolution Last Treating Co mments Source Name Details Category Date Date Treatment Clinician Date Recurrent Recurrent Disease Active Uni vers vaginitis vaginitis 5-14 ity of 00:00: [place] [address] Medical Branch Abdominal Abdominal Disease Active Met [...] s to drug LATEX DRUG Active Hives Univers INGREDI 8-14 ity of 00:00: [place] 00 Medical Branch MORPHINE DRUG Active Swelling 2019-0 Univer s INGREDI 8-14 ity of 00:00: [place] [facility] ZIPRASID DRUG Active Swelling 2019-0 Univer s ONE HCL INGREDI 8-14 ity of 00:00: [place] 00 Medical Branch Latex Propensi Active Hives 2019-0 Univers ty to 8-14 ity of adverse 00:00: [place] reaction 00 Medical Branch Morphine Propensi Active Swelling 2019-0 Univ ers ty to 8-14 ity of adverse 00:00: [place] reaction 00 Medical s Branch Ziprasid Propensi Active Swelling 2019-0 Univ ers one Hcl ty to 8-14 ity of adverse 00:00: [place] reaction 00 [facility] NO KNOWN Drug Active Univers ALLERGIE Class ity of [facility] Social History Social Habit Start Date Stop Date Quantity Comments Source [facility] History of tobacco Cigarette Smoker University of use [facility] Tobacco use and 2023-07-19 2023-07-19 Smokeless tobacco Un iversity of exposure 00:00:00 00:00:00 non-user [facility] Exposure to 2022-07-13 2022-07-23 Not sure [facility] SARS-CoV-2 (event) 00:00:00 15:04:00 [facility] Alcohol intake 2020-05-27 2020-05-27 Current drinker [facility] 00:00:00 00:00:00 of [facility] (finding) History of Social 2020-05-27 2020-05-[address] function 00:00:00 00:00:00 Hospital Alcohol Comment 2019-05-29 2019-05-29 occasional [facility] 00:[facility] Cigarettes smoked 2019-05-29 2019-05-[address] current (pack per 00:00:00 00:00:00 Hospita l day) - Reported Sex Assigned At [birth year] [facility] 00:[facility] Smoking Status Start Date Stop Date Source Ex-smoker 2023-07-19 00:00:00 2023-07-19 00:00:00 Universi ty of [facility] Light tobacco smoker 2019 00:00:00 [facility] [place] [facility] Smokes tobacco daily 2019-05-29 00:00:00 [facility] [place] [facility] Medications Ordered Filled Start Stop Current Ordering Indication Dosage Frequency Signature Comments Components Source Medication Medication Date Date Medication? Clinician (SIG) Name Name amLODIPine 2022-10 Yes [id number] 10mg Take 1 U nivers 10 mg 0-05 tablet by ity of tablet 00:00: mouth in [place] 00 the Medical morning. Branch hydrOXYzine 2022-10 Yes 25mg Take 1 Univ ers 25 mg 0-04 capsule by ity of capsule 13:38: mouth 3 [place] 02 (three) Medical times Branch daily as needed for Itching. hydrOXYzine 2022-10 Yes 25mg Take 1 Univ ers 25 mg 0-04 capsule by ity of capsule 13:38: mouth 3 [place] 02 (three) Medical times Branch daily as needed for Itching. hydrOXYzine 2022-10 Yes 25mg Take 1 Univ ers 25 mg 0-04 capsule by ity of capsule 13:38: mouth 3 [place] 02 (three) Medical times Branch daily as needed for Itching. hydrOXYzine 2022-10 Yes 25mg Take 1 Univ ers 25 mg 0-04 capsule by ity of capsule 13:38: mouth 3 [place] 02 (three) Medical times Branch daily as needed for Itching. hydrOXYzine 2022-10 Yes 25mg Take 1 Univ ers 25 mg 0-04 capsule by ity of capsule 13:38: mouth 3 [place] 02 (three) Medical times Branch daily as needed for Itching. hydrOXYzine 2022-10 Yes 25mg Take 1 Univ ers 25 mg 0-04 capsule by ity of capsule 13:38: mouth 3 [place] 02 (three) Medical times Branch daily as needed for Itching. hydrOXYzine 2022-10 Yes 25mg Take 1 Univ ers 25 mg 0-04 capsule by ity of capsule 13:38: mouth 3 [place] 02 (three) Medical times Branch daily as needed for Itching. hydrOXYzine 2022-10 Yes 25mg Take 1 Univ ers 25 mg 0-04 capsule by ity of capsule 13:38: mouth 3 [place] 02 (three) Medical times Branch daily as needed for Itching. amLODIPine 2022-10 Yes [id number] 10mg Take 1 U nivers 10 mg 0-04 tablet by ity of tablet 00:00: mouth in [place] 00 the Medical morning. Branch amLODIPine 2023-1 Yes [id number] 10mg Take 1 U nivers 10 mg 0-04 tablet by ity of tablet 00:00: mouth in [place] 00 the Medical morning. Branch amLODIPine 3-1 Yes [id number] 10mg Take 1 U nivers 10 mg 0-04 tablet by ity of tablet 00:00: mouth in [place] 00 the Medical morning. Branch amLODIPine 3-1 Yes [id number] 10mg Take 1 U nivers 10 mg 0-04 tablet by ity of tablet 00:00: mouth in [place] 00 the Medical morning. Branch amLODIPine 3-1 Yes [id number] 10mg Take 1 U nivers 10 mg 0-04 tablet by ity of tablet 00:00: mouth in [place] 00 the Medical morning. Branch amLODIPine 3-1 Yes [id number] 10mg Take 1 U nivers 10 mg 0-04 tablet by ity of tablet 00:00: mouth in [place] 00 the Medical morning. Branch amLODIPine 3-1 Yes [id number] 10mg Take 1 U nivers 10 mg 0-04 tablet by ity of tablet 00:00: mouth in [place] 00 the Medical morning. Branch lisinopriL 2023-0 Yes 10mg Take 1 Unive rs 10 mg 9-29 tablet by ity of tablet 00:00: mouth [place] 00 every Medical morning. Branch lisinopriL 2023-0 Yes 10mg Take 1 Unive rs 10 mg 9-29 tablet by ity of tablet 00:00: mouth [place] 00 every Medical morning. Branch lisinopriL 2023-0 Yes 10mg Take 1 Unive rs 10 mg 9-29 tablet by ity of tablet 00:00: mouth [place] 00 every Medical morning. Branch lisinopriL 2023-0 Yes 10mg Take 1 Unive rs 10 mg 9-29 tablet by ity of tablet 00:00: mouth [place] 00 every Medical morning. Branch lisinopriL 2023-0 Yes 10mg Take 1 Unive rs 10 mg 9-29 tablet by ity of tablet 00:00: mouth [place] 00 every Medical morning. Branch lisinopriL 2023-0 Yes 10mg Take 1 Unive rs 10 mg 9-29 tablet by ity of tablet 00:00: mouth [place] 00 every Medical morning. Branch lisinopriL 2023-0 Yes 10mg Take 1 Unive rs 10 mg 9-29 tablet by ity of tablet 00:00: mouth 00 every Medical morning. Branch lisinopriL 2022-0 Yes 10mg Take 1 Unive rs 10 mg 9-29 tablet by ity of tablet 00:00: mouth every Medical morning. Branch OLANZapine 2022-0 Yes 2.5mg Take 1 Univ ers 2.5 mg 9-01 tablet by ity of tablet 00:00: mouth at [place] bedtime. Medical Branch OLANZapine 3-0 Yes 2.5mg Take 1 Univ ers 2.5 mg 9-01 tablet by ity of tablet 00:00: mouth at [place] bedtime. Medical Branch OLANZapine 2022-0 Yes 2.5mg Take 1 Univ ers 2.5 mg 9-01 tablet by ity of tablet 00:00: mouth at [place] bedtime. Medical Branch OLANZapine 2022-0 Yes 2.5mg Take 1 Univ ers 2.5 mg 9-01 tablet by ity of tablet 00:00: mouth at [place] [address] bedtime. Medical Branch OLANZapine 3-0 Yes 2.5mg Take 1 Univ ers 2.5 mg 9-01 tablet by ity of tablet 00:00: mouth at [place] [address] bedtime. Medical Branch OLANZapine 3-0 Yes 2.5mg Take 1 Univ ers 2.5 mg 9-01 tablet by ity of tablet 00:00: mouth at [place] [address] bedtime. Medical Branch OLANZapine 3-0 Yes 2.5mg Take 1 Univ ers 2.5 mg 9-01 tablet by ity of tablet 00:00: mouth at [place] [address] bedtime. Medical Branch OLANZapine 3-0 Yes 2.5mg Take 1 Univ ers 2.5 mg 9-01 tablet by ity of tablet 00:00: mouth at [place] [address] bedtime. Medical Branch TAKE 1 2021-10 No TABLET 0-31 EVERY 8 00:00: HOURS 00 NEEDED TAKE 1 2021-10 No TABLET 0-31 EVERY 8 00:00: HOURS 00 NEEDED erythromyci 2021-10 Yes [id number] .5[in_u Place 0.5 Univers n 5 mg/gram 0-08 [id number] s] Inches in i ty of (0.5 %) 00:00: both eyes [place] ophthalmic 00 at Medical ointment bedtime. Branch Continue until you follow up with eye doctor. erythromyci 2021-10 Yes [id number] .5[in_u Place 0.5 Univers n 5 mg/gram 0-08 330180 s] Inches in i ty of (0.5 %) 00:00: both eyes [place] ophthalmic 00 at Medical ointment bedtime. Branch Continue until you follow up with eye doctor. erythromyci 2021-10 Yes [id number] .5[in_u Place 0.5 Univers n 5 mg/gram 0-08 833423 s] Inches in i ty of (0.5 %) 00:00: both eyes [place] ophthalmic 00 at Medical ointment bedtime. Branch Continue until you follow up with eye doctor. erythromyci 2021-10 Yes [id number] .5[in_u Place 0.5 Univers n 5 mg/gram 0-08 861203 s] Inches in i ty of (0.5 %) 00:00: both eyes [place] ophthalmic 00 at Medical ointment bedtime. Branch Continue until you follow up with eye doctor. erythromyci 2021-10 Yes [id number] .5[in_u Place 0.5 Univers n 5 mg/gram 0-08 277015 s] Inches in i ty of (0.5 %) 00:00: both eyes [place] ophthalmic 00 at Medical ointment bedtime. Branch Continue until you follow up with eye doctor. erythromyci 2021-10 Yes [id number] .5[in_u Place 0.5 Univers n 5 mg/gram 0-08 412124 s] Inches in i ty of (0.5 %) 00:00: both eyes [place] ophthalmic 00 at Medical ointment bedtime. Branch Continue until you follow up with eye doctor. erythromyci 2021-10 Yes [id number] .5[in_u Place 0.5 Univers n 5 mg/gram 0-08 068820 s] Inches in i ty of (0.5 %) 00:00: both eyes [place] ophthalmic 00 at Medical ointment bedtime. Branch Continue until you follow up with eye doctor. erythromyci 2021-10 Yes [id number] .5[in_u Place 0.5 Univers n 5 mg/gram 0-08 972520 s] Inches in i ty of (0.5 %) 00:00: both eyes [place] ophthalmic 00 at Medical ointment bedtime. Branch Continue until you follow up with eye doctor. erythromyci 2021-10 Yes [id number] .5[in_u Place 0.5 Univers n 5 mg/gram 0-08 949720 s] Inches in i ty of (0.5 %) 00:00: both eyes [place] ophthalmic 00 at Medical ointment bedtime. Branch Continue until you follow up with eye doctor. erythromyci 2021-10 Yes [id number] .5[in_u Place 0.5 Univers n 5 mg/gram 0-08 654428 s] Inches in i ty of (0.5 %) 00:00: both eyes [place] ophthalmic 00 at Medical ointment bedtime. Branch Continue until you follow up with eye doctor. erythromyci 2021-10- No [id number] .5[in_u Place 0.5 Univers n 5 mg/gram 0-08 10-08 [id number] s] Inches in ity of (0.5 %) [...] THREE 00:00: TIMES DAILY 00 NEEDED Dose 2-0 No Unknown 4-13 00:00: 00 [...] 2021-1 No Unknown 2-20 00:00: 00 Dose 2020-1 No Unknown 2-20 00:00: 00 Dose 2020-1 No Unknown 2-20 00:00: 00 Dose 2020-1 No Unknown 2-20 00:00: 00 Dose 2020-1 No Unknown 2-20 00:00: 00 Dose 2020-1 No Unknown 2-20 00:00: 00 Dose 2020-1 No Unknown 2-20 00:00: 00 Dose 2020-1 No Unknown 0-12 00:00: 00 Dose 2020-1 No Unknown 0-12 00:00: 00 Dose 2020-1 No Unknown 0-12 00:00: 00 Dose 2020-1 No Unknown 0-12 00:00: 00 Dose 2020-1 No Unknown 0-12 00:00: 00 Dose 2020-1 No Unknown 0-12 00:00: 00 Dose 2020-1 No Unknown 0-12 00:00: 00 Dose 2020-1 No Unknown 0-12 00:00: 00 Dose 2020-1 No Unknown 0-12 00:00: 00 Dose 2020-1 No Unknown 0-12 00:00: 00 Dose 1-0 No Unknown 9-15 [...] 1-0 No Unknown 5-11 00:00: 00 metronidazo 1-0 No 1mg le 500 mg 5-11 tablet 00:00: 00 metronidazo 1-0 No 1mg le 500 mg 5-11 tablet 00:00: 00 Dose 1-0 No Unknown 5-11 00:00: 00 metronidazo 1-0 No 1mg le [...] 10 mg 4-14 tablet 00:00: 00 cetirizine 2021-0 No 1mg 10 mg 4-14 tablet 00:00: 00 fluticasone 1-0 No 12mcg/a propionate 4-14 ctuatio 50 00:00: n mcg/actuati 00 on nasal spray,suspe nsion Bromfed DM 2020-0 No 10mg/5 2 mg-30 4-14 mL mg-10 mg/5 00:00: mL oral 00 syrup fluticasone 2020-0 No 12mcg/a propionate 4-14 ctuatio 50 00:00: [...] 3-10 capsule 00:00: 00 diphenhydrA 2020-1 Yes [id number] 25mg Take 1 Univers MINE 1-20 105 capsule by sanjeev of (BENADRYL) 00:00: mouth [place] 25 mg 00 every 6 Medical capsule (six) Branch hours as needed for Allergies or Sleep. diphenhydrA 2019-10 Yes [id number] 25mg Take 1 Univers MINE 1-20 105 capsule by ity of (BENADRYL) 00:00: mouth [place] 25 mg 00 every 6 Medical capsule (six) Branch hours as needed for Allergies or Sleep. diphenhydrA 2019-10 Yes [id number] 25mg Take 1 Univers MINE 1-20 105 capsule by ity of (BENADRYL) 00:00: mouth [place] 25 mg 00 every 6 Medical capsule (six) Branch hours as needed for Allergies or Sleep. diphenhydrA 2019-10 Yes [id number] 25mg Take 1 Univers MINE 1-20 105 capsule by ity of (BENADRYL) 00:00: mouth [place] 25 mg 00 every 6 Medical capsule (six) Branch hours as needed for Allergies or Sleep. diphenhydrA 2019-10 Yes [id number] 25mg Take 1 Univers MINE 1-20 105 capsule by ity of (BENADRYL) 00:00: mouth [place] 25 mg 00 every 6 Medical capsule (six) Branch hours as needed for Allergies or Sleep. diphenhydrA 2019-10 Yes [id number] 25mg Take 1 Univers MINE 1-20 105 capsule by ity of (BENADRYL) 00:00: mouth [place] 25 mg 00 every 6 Medical capsule (six) Branch hours as needed for Allergies or Sleep. diphenhydrA 2019-10 Yes [id number] 25mg Take 1 Univers MINE 1-20 105 capsule by ity of (BENADRYL) 00:00: mouth [place] 25 mg 00 every 6 Medical capsule (six) Branch hours as needed for Allergies or Sleep. diphenhydrA 2019-10 Yes [id number] 25mg Take 1 Univers MINE 1-20 105 capsule by ity of (BENADRYL) 00:00: mouth [place] 25 mg 00 every 6 Medical capsule (six) Branch hours as needed for Allergies or Sleep. diphenhydrA 2019-10 Yes [id number] 25mg Take 1 Univers MINE 1-20 105 capsule by ity of (BENADRYL) 00:00: mouth [place] 25 mg 00 every 6 Medical capsule (six) Branch hours as needed for Allergies or Sleep. diphenhydrA 2019-10 Yes [id number] 25mg Take 1 Univers MINE 1-20 105 capsule by ity of (BENADRYL) 00:00: mouth [place] 25 mg 00 every 6 Medical capsule (six) Branch hours as needed for Allergies or Sleep. diphenhydrA 2020-1 Yes [id number] 25mg Take 1 Univers MINE 1-20 105 capsule by ity of (BENADRYL) 00:00: mouth [place] 25 mg 00 every 6 Medical capsule (six) Branch hours as needed for Allergies or Sleep. ibuprofen 2020-0 Yes [id number] 600mg Take 1 Univers 600 mg 9-23 tablet by ity of tablet 00:00: mouth [place] 00 every 6 Medical (six) Branch hours as needed for Pain (scale 4-6). ibuprofen 2020-0 Yes [id number] 600mg Take 1 Univers 600 mg 9-23 tablet by ity of tablet 00:00: mouth [place] 00 every 6 Medical (six) Branch hours as needed for Pain (scale 4-6). ibuprofen 2020-0 Yes [id number] 600mg Take 1 Univers 600 mg 9-23 tablet by ity of tablet 00:00: mouth [place] 00 every 6 Medical (six) Branch hours as needed for Pain (scale 4-6). ibuprofen 2020-0 Yes [id number] 600mg Take 1 Univers 600 mg 9-23 tablet by ity of tablet 00:00: mouth [place] 00 every 6 Medical (six) Branch hours as needed for Pain (scale 4-6). ibuprofen 2020-0 Yes [id number] 600mg Take 1 Univers 600 mg 9-23 tablet by ity of tablet 00:00: mouth [place] 00 every 6 Medical (six) Branch hours as needed for Pain (scale 4-6). ibuprofen 2020-0 Yes [id number] 600mg Take 1 Univers 600 mg 9-23 tablet by ity of tablet 00:00: mouth [place] 00 every 6 Medical (six) Branch hours as needed for Pain (scale 4-6). ibuprofen 2020-0 Yes [id number] 600mg Take 1 Univers 600 mg 9-23 tablet by ity of tablet 00:00: mouth [place] 00 every 6 Medical (six) Branch hours as needed for Pain (scale 4-6). ibuprofen 2020-0 Yes [id number] 600mg Take 1 Univers 600 mg 9-23 tablet by ity of tablet 00:00: mouth [place] 00 every 6 Medical (six) Branch hours as needed for Pain (scale 4-6). ibuprofen 2020-0 Yes [id number] 600mg Take 1 Univers 600 mg 9-23 tablet by ity of tablet 00:00: mouth [place] 00 every 6 Medical (six) Branch hours as needed for Pain (scale 4-6). ibuprofen 2020-0 Yes [id number] 600mg Take 1 Univers 600 mg 9-23 tablet by ity of tablet 00:00: mouth [place] 00 every 6 Medical (six) Branch hours as needed for Pain (scale 4-6). ibuprofen 2020-0 Yes [id number] 600mg Take 1 Univers 600 mg 9-23 tablet by ity of tablet 00:00: mouth [place] 00 every 6 Medical (six) Branch hours as needed for Pain (scale 4-6). hydrOXYzine 2020-0 Yes 25mg Take 25 mg Univers 25 mg 3-02 by mouth 3 ity of capsule 20:29: (three) [place] 53 times Medical daily as Branch needed for Itching. hydrOXYzine 2020-0 Yes 25mg Take 25 mg Univers 25 mg 3-02 by mouth 3 ity of capsule 20:29: (three) [place] 53 times Medical daily as Branch needed for Itching. hydrOXYzine 2020-0 Yes 25mg Take 25 mg Univers 25 mg 3-02 by mouth 3 ity of capsule 20:29: (three) [place] 53 times Medical daily as Branch needed [...] known No [facility] Vital Signs Vital Name Observation Time Observation Value Comments Source Systolic blood 2023-07-19 18:32:00 138 mm[Hg] Univer sity of pressure [facility] Diastolic blood 2023-07-19 18:32:00 88 mm[Hg] Unive rsity of pressure [place] [facility] Heart rate 2023-07-19 18:32:00 69 /min [facility]i ty [facility] [place] [facility] Respiratory rate 2023-07-19 18:32:00 18 /min Univ ersity of [place] [facility] Body height 2023-07-19 18:32:00 160 cm [facility]i ty [facility] [place] [facility] Body weight 2023-07-19 18:32:00 86.546 kg [facility] [place] [facility] BMI 2023-07-19 18:32:00 33.80 kg/m2 [facility] [place] [facility] Oxygen saturation in 2023-07-19 18:32:00 100 /min University of Arterial blood by [place] Zattoo sosa Pulse oximetry Branch Systolic blood 2022-07-23 20:05:00 150 mm[Hg] Univer sity of pressure [place] [facility] Diastolic blood 2022-07-23 20:05:00 103 mm[Hg] Unive rsity of pressure [place] [facility] Heart rate 2022-07-23 20:05:00 82 /min [facility] ty [facility] [place] [facility] Body temperature 2022-07-23 20:05:00 37.61 [place] Univ ersity of [place] [facility] Respiratory rate 2022-07-23 20:05:00 18 /min Univ ersity of [place] [facility] Body height 2022-07-23 20:05:00 160 cm [facility] ty [facility] [place] [facility] Body weight 2022-07-23 20:05:00 81.647 kg [facility] [place] [facility] BMI 2022-07-23 20:05:00 31.89 kg/m2 [facility] [place] [facility] Oxygen saturation in 2022-07-23 20:05:00 100 /min University of Arterial blood by [place] Zattoo sosa Pulse oximetry Branch BP Systolic 2022-10-06 13:36:00 [...] Date / Time Performing Clinician Source Performed TRANSTHORACIC ECHO (TTE) 2023-08-21 19:47:[address] [facility] REFERRAL- 2023-07-14 05:01:00 Doctor Unassigned, No [facility] [place] REQUEST/RESPONSE Name Medical Branch NOTICE OF PRIVACY 2022-07-23 20:02:47 Doctor Unassigned, No [facility] [place] PRACTICES Name Medical Branch CONSENT/REFUSAL FOR 2022-07-23 19:57:49 Doctor Unassigned, No Un iversity [facility] [place] DIAGNOSIS AND TREATMENT Name Medical Branch Ekg W/ At Least 12 Leads 2021-10-04 00:00:00 [place]/ [place] r [id number] Us Pelvic 2021-05-14 00:00:00 Nonobstetric Complete [id number] Us Abdominal 2021-05-14 00:00:00 Complete Plan of Care Planned Activity Planned Date Details Comments Source Future Scheduled 2023-08-12 COVID-[address] [facility] Test 03:24:53 (#1) [code = COVID-19 VACCINE (#1)] Future Scheduled 2023-08-12 [facility] Test 03:24:53 malignant neoplasm of cervix (procedure) [code = 977521532] Future Scheduled 2023-08-12 [facility]FLUENZA [facility]ACCINE [facility] 03:24:53 (#1) [code = INFLUENZA VACCINE (#1)] Future Scheduled 2023-08-12 COVID-[address] [facility] Test 03:24:53 (#1) [code = COVID-19 VACCINE (#1)] Future Scheduled 2023-08-12 [facility] Test 03:24:53 malignant neoplasm of cervix (procedure) [code = 903251324] Future Scheduled 2023-08-12 [facility]INE [facility] 03:24:53 (#1) [code = INFLUENZA VACCINE (#1)] Future Scheduled 2023-08-12 COVID-[address] [facility] Test 03:24:53 (#1) [code = COVID-19 VACCINE (#1)] Future Scheduled 2023-08-12 [facility] Test 03:24:53 malignant neoplasm of cervix (procedure) [code = 577508779] Future Scheduled 2023-08-12 [facility]INE [facility] 03:24:53 (#1) [code = INFLUENZA VACCINE (#1)] Future Scheduled 2023-06-21 COVID-[address] [facility] Test 10:45:21 (#1) [code = COVID-19 VACCINE (#1)] Future Scheduled 2023-06-21 [facility] Test 10:45:21 malignant neoplasm of cervix (procedure) [code = 985887348] Future Scheduled 2023-06-21 [facility]ZA [facility]INE [facility] 10:45:21 (#1) [code = INFLUENZA VACCINE (#1)] Future Scheduled 2023-06-21 COVID-[address] [facility] Test 10:45:21 (#1) [code = COVID-19 VACCINE (#1)] Future Scheduled 2023-06-21 [facility] Test 10:45:21 malignant neoplasm of cervix (procedure) [code = 026379686] Future Scheduled 2023-06-21 [facility] 10:45:21 (#1) [code = INFLUENZA VACCINE (#1)] Future Scheduled 2023-05-20 COVID-[address] [facility] Test 20:42:44 (#1) [code = COVID-19 VACCINE (#1)] Future Scheduled 2023-05-20 [facility] Test 20:42:44 malignant neoplasm of cervix (procedure) [code = 724666724] Future Scheduled 2023-05-20 [facility]INE [facility] 20:42:44 [code = INFLUENZA VACCINE] Future Scheduled 2023-05-20 COVID-[address] [facility] Test 20:42:44 (#1) [code = COVID-19 VACCINE (#1)] Future Scheduled 2023-05-20 [facility] Test 20:42:44 malignant neoplasm of cervix (procedure) [code = 401090555] Future Scheduled 2023-05-20 [facility]INE [facility] 20:42:44 [code = INFLUENZA VACCINE] Future Scheduled 2023-05-20 COVID-[address] [facility] Test 20:42:44 (#1) [code = COVID-19 VACCINE (#1)] Future Scheduled 2023-05-20 [facility] Test 20:42:44 malignant neoplasm of cervix (procedure) [code = 747700469] Future Scheduled 2023-05-20 [facility]INE [facility] 20:42:44 [code = INFLUENZA VACCINE] Future Scheduled 2023-04-17 COVID-[address] [facility] Test 14:18:58 (#1) [code = COVID-19 VACCINE (#1)] Future Scheduled 2023-04-17 [facility] Test 14:18:58 malignant neoplasm of cervix (procedure) [code = 305302000] Future Scheduled 2023-04-17 [facility]INE [facility] 14:18:58 [code = INFLUENZA VACCINE] Future Scheduled 2023-04-17 [facility] 14:18:58 (#1) [code = COVID-19 VACCINE (#1)] Future Scheduled 2023-04-17 [facility] Test 14:18:58 malignant neoplasm of cervix (procedure) [code = 787056041] Future Scheduled 2023-04-17 [facility]INE [facility] 14:18:58 [code = INFLUENZA VACCINE] Future Scheduled 2023-04-17 [facility] 14:18:58 (#1) [code = COVID-19 VACCINE (#1)] Future Scheduled 2023-04-17 [facility] Test 14:18:58 malignant neoplasm of cervix (procedure) [code = 245164440] Future Scheduled 2023-04-17 [facility]INE [facility] 14:18:58 [code = INFLUENZA VACCINE] Future Scheduled 2023-04-17 [facility] 14:18:58 (#1) [code = COVID-19 VACCINE (#1)] Future Scheduled 2023-04-17 [facility] Test 14:18:58 malignant neoplasm of cervix (procedure) [code = 494833594] Future Scheduled 2023-04-17 [facility]INE [facility] 14:18:58 [code = INFLUENZA VACCINE] Future Scheduled 2023-04-17 [facility] 14:18:58 (#1) [code = COVID-19 VACCINE (#1)] Future Scheduled 2023-04-17 [facility] Test 14:18:58 malignant neoplasm of cervix (procedure) [code = 111934600] Future Scheduled 2023-04-17 [facility]58 [code = INFLUENZA VACCINE] Future Scheduled 2023-04-17 [facility] (#1) [code = COVID-19 VACCINE (#1)] Future Scheduled 2023-04-17 [facility]:18:58 malignant neoplasm of cervix (procedure) [code = 040131324] Future Scheduled 2023-04-17 [facility]:18:58 [code = INFLUENZA VACCINE] Future Scheduled 2023-04-17 [facility]:18:58 (#1) [code = COVID-19 VACCINE (#1)] Future Scheduled 2023-04-17 [facility] 14:18:58 malignant neoplasm of cervix (procedure) [code = 918561023] Future Scheduled 2023-04-17 [facility] 14:18:58 [code = INFLUENZA VACCINE] Future Scheduled 2023-04-17 [facility]:18:58 (#1) [code = COVID-19 VACCINE (#1)] Future Scheduled 2023-04-17 [facility] 14:18:58 malignant neoplasm of cervix (procedure) [code = 520850487] Future Scheduled 2023-04-17 [facility] 14:18:58 [code = INFLUENZA VACCINE] Future Scheduled 2023-04-17 [facility] 14:18:58 (#1) [code = COVID-19 VACCINE (#1)] Future Scheduled 2023-04-17 [facility] 14:18:58 malignant neoplasm of cervix (procedure) [code = 586180743] Future Scheduled 2023-04-17 [facility] 14:18:58 [code = INFLUENZA VACCINE] Future Scheduled 2023-04-04 [facility] 17:50:56 (#1) [code = COVID-19 VACCINE (#1)] Future Scheduled 2023-04-04 [facility] 17:50:56 malignant neoplasm of cervix (procedure) [code = 416712267] Future Scheduled 2023-04-04 [facility] 17:50:56 [code = INFLUENZA VACCINE] Future Scheduled 2023-01-15 [facility] 10:28:45 (#1) [code = COVID-19 VACCINE (#1)] Future Scheduled 2023-01-15 [facility] 10:28:45 malignant neoplasm of cervix (procedure) [code = 669082339] Future Scheduled 2023-01-15 [facility] 10:28:45 [code = INFLUENZA VACCINE] Future Scheduled 2023-01-10 [facility] [facility] Test 16:49:24 (#1) [code = COVID-19 VACCINE (#1)] Future Scheduled 2023-01-10 [facility] 16:49:24 malignant neoplasm of cervix (procedure) [code = 543870606] Future Scheduled 2023-01-10 [facility] 16:49:24 [code = INFLUENZA VACCINE] Future Scheduled 2022-12-05 [facility] [facility] 08:41:12 (#1) [code = COVID-19 VACCINE (#1)] Future Scheduled 2022-12-05 [facility] 08:41:12 malignant neoplasm of cervix (procedure) [code = 821395137] Future Scheduled 2022-12-05 [facility] 08:41:12 [code = INFLUENZA VACCINE] Future Scheduled 2022-12-05 [facility] [facility] 08:41:12 (#1) [code = COVID-19 VACCINE (#1)] Future Scheduled 2022-12-05 [facility] 08:41:12 malignant neoplasm of cervix (procedure) [code = 926928837] Future Scheduled 2022-12-05 [facility] 08:41:12 [code = INFLUENZA VACCINE] Future Scheduled 2022-10-09 [facility] [facility] 13:43:20 (#1) [code = COVID-19 VACCINE (#1)] Future Scheduled 2022-10-09 [facility] 13:43:20 malignant neoplasm of cervix (procedure) [code = 555295308] Future Scheduled 2022-10-09 [facility] 13:43:20 [code = INFLUENZA VACCINE] Future Scheduled 2022-10-09 [facility] [facility] 13:43:20 (#1) [code = COVID-19 VACCINE (#1)] Future Scheduled 2022-10-09 [facility] 13:43:20 malignant neoplasm of cervix (procedure) [code = 334372088] Future Scheduled 2022-10-09 [facility] 13:43:20 [code = INFLUENZA VACCINE] Future Scheduled 2022-10-09 [facility] 13:43:20 (#1) [code = COVID-19 VACCINE (#1)] Future Scheduled 2022-10-09 [facility] 13:43:20 malignant neoplasm of cervix (procedure) [code = 468281350] Future Scheduled 2022-10-09 [facility] 13:43:20 [code = INFLUENZA VACCINE] Future Scheduled 2022-10-09 [facility] 13:43:20 (#1) [code = COVID-19 VACCINE (#1)] Future Scheduled 2022-10-09 [facility] 13:43:20 malignant neoplasm of cervix (procedure) [code = 569289725] Future Scheduled 2022-10-09 [facility] 13:43:20 [code = INFLUENZA VACCINE] Future Scheduled 2022-10-02 [facility] 01:26:14 (#1) [code = COVID-19 VACCINE (#1)] Future Scheduled 2022-10-02 [facility] 01:26:14 [code = INFLUENZA VACCINE] Future Scheduled 2022-06-26 [facility] VACCINES (1 of 3 - 3-dose series) [code = HEPATITIS B VACCINES (1 of 3 - 3-dose series)] Future Scheduled 2022-06-26 [facility] 03:02:31 (#1) [code = COVID-19 VACCINE (#1)] Future Scheduled 2022-06-26 [facility] 03:02:31 malignant neoplasm of cervix (procedure) [code = 405142427] Future Scheduled 2022-06-26 [facility] 03:02:31 [code = INFLUENZA VACCINE] Future Scheduled 2022-06-26 [facility] 03:02[facility]31 VACCINES (1 of 3 - 3-dose series) [code = HEPATITIS B VACCINES (1 of 3 - 3-dose series)] Future Scheduled 2022-06-26 [facility] 03:02:31 (#1) [code = COVID-19 VACCINE (#1)] Future Scheduled 2022-06-26 [facility] 03:02:31 malignant neoplasm of cervix (procedure) [code = 824088408] Future Scheduled 2022-06-26 [facility] 03:02:31 [code = INFLUENZA VACCINE] Future Scheduled 2022-06-26 [facility] 03:02:31 VACCINES (1 of 3 - 3-dose series) [code = HEPATITIS B VACCINES (1 of 3 - 3-dose series)] Future Scheduled 2022-06-26 [facility] 03:02:31 (#1) [code = COVID-19 VACCINE (#1)] Future Scheduled 2022-06-26 [facility] 03:02:31 malignant neoplasm of cervix (procedure) [code = 313543012] Future Scheduled 2022-06-26 [facility] 03:02:31 [code = INFLUENZA VACCINE] Future Scheduled [facility] (1) [code = COVID-19 VACCINE (1)] Future Scheduled [facility] screening (procedure) [code = 507095883] Future Scheduled [facility] Test malignant neoplasm of cervix (procedure) [code = 072246430] Future Scheduled [facility] [code = INFLUENZA VACCINE] Goal Plan of Care Note [code = 09961-8] Goal Plan of Care Note [code = 85687-3] Goal Plan of Care Note [code = 89712-9] Goal Plan of Care Note [code = 16534-8] Goal Plan of Care Note [code = 05572-2] Goal Plan of Care Note [code = 47501-9] Goal Plan of Care Note [code = 77427-1] Goal Plan of Care Note [code = 05494-5] Goal Plan of Care Note [code = 29943-5] Goal Plan of Care Note [code = 40841-1] Goal Plan of Care Note [code = 51837-9] Goal Plan of Care Note [code = 53542-0] Goal Plan of Care Note [code = 25938-8] Goal Plan of Care Note [code = 18296-8] Goal Plan of Care Note [code = 23252-8] Goal Plan of Care Note [code = 00131-6] Goal Plan of Care Note [code = 09225-8] Goal Plan of Care Note [code = 88558-5] Goal Plan of Care Note [code = 53106-1] Goal Plan of Care Note [code = 96186-1] Goal Plan of Care Note [code = 38159-7] Goal Plan of Care Note [code = 13840-9] Goal Plan of Care Note [code = 72853-7] Goal Plan of Care Note [code = 07681-4] Goal Plan of Care Note [code = 44491-5] Goal Plan of Care Note [code = 96127-3] Goal Plan of Care Note [code = 95072-1] Goal Plan of Care Note [code = 76497-3] Goal Plan of Care Note [code = 43733-9] Goal Plan of Care Note [code = 15487-0] Goal Plan of Care Note [code = 56448-3] Goal Plan of Care Note [code = 23444-4] Goal Plan of Care Note [code = 56832-2] Goal Plan of Care Note [code = 09318-8] Goal Plan of Care Note [code = 40429-7] Goal Plan of Care Note [code = 08045-7] Goal Plan of Care Note [code = 39737-4] Goal Plan of Care Note [code = 72234-3] Goal Plan of Care Note [code = 31154-8] Goal Plan of Care Note [code = 12873-4] Goal Plan of Care Note [code = 58301-1] Goal Plan of Care Note [code = 97097-9] Goal Plan of Care Note [code = 47554-7] Goal Plan of Care Note [code = 85697-4] Goal Plan of Care Note [code = 64736-3] Goal Plan of Care Note [code = 46496-4] Goal Plan of Care Note [code = 87878-1] Goal Plan of Care Note [code = 22166-3] Goal Plan of Care Note [code = 05099-3] Goal Plan of Care Note [code = 24094-9] Goal Plan of Care Note [code = 71185-6] Goal Plan of Care Note [code = 62380-7] Goal Plan of Care Note [code = 90682-1] Goal Plan of Care Note [code = 69384-1] Goal Plan of Care Note [code = 26588-7] Goal Plan of Care Note [code = 76560-8] Goal Plan of Care Note [code = 87111-4] Goal Plan of Care Note [code = 86370-1] Goal Plan of Care Note [code = 26058-8] Goal Plan of Care Note [code = 80958-5] Goal Plan of Care Note [code = 85441-2] Goal Plan of Care Note [code = 06694-0] Goal Plan of Care Note [code = 37640-9] Goal Plan of Care Note [code = 69015-7] Goal Plan of Care Note [code = 17438-0] Goal Plan of Care Note [code = 44539-4] Goal Plan of Care Note [code = 11910-5] Goal Plan of Care Note [code = 44857-0] Goal Plan of Care Note [code = 83968-3] Goal Plan of Care Note [code = 27187-2] Goal Plan of Care Note [code = 46943-2] Goal Plan of Care Note [code = 54439-9] Goal Plan of Care Note [code = 53722-2] Goal Plan of Care Note [code = 58749-4] Goal Plan of Care Note [code = 66107-1] Goal Plan of Care Note [code = 27033-8] Goal Plan of Care Note [code = 44613-4] Goal Plan of Care Note [code = 76873-1] Goal Plan of Care Note [code = 69256-8] Goal Plan of Care Note [code = 52155-1] Goal Plan of Care Note [code = 74432-3] Goal Plan of Care Note [code = 75411-4] Goal Plan of Care Note [code = 37181-2] Goal Plan of Care Note [code = 20720-4] Goal Plan of Care Note [code = 70621-5] Goal Plan of Care Note [code = 11054-3] Goal Plan of Care Note [code = 70631-7] Goal Plan of Care Note [code = 54708-6] Goal Plan of Care Note [code = 47093-4] Goal Plan of Care Note [code = 12520-5] Goal Plan of Care Note [code = 33607-2] Goal Plan of Care Note [code = 74777-0] Goal Plan of Care Note [code = 61043-8] Goal Plan of Care Note [code = 37124-7] Goal Plan of Care Note [code = 42259-8] Goal Plan of Care Note [code = 48406-8] Goal Plan of Care Note [code = 50973-6] Goal Plan of Care Note [code = 04814-7] Goal Plan of Care Note [code = 20400-6] Goal Plan of Care Note [code = 49466-1] Goal Plan of Care Note [code = 08090-0] Goal Plan of Care Note [code = 43981-8] Goal Plan of Care Note [code = 83818-1] Goal Plan of Care Note [code = 22728-8] Goal Plan of Care Note [code = 10459-9] Goal Plan of Care Note [code = 82152-7] Goal Plan of Care Note [code = 43025-7] Goal Plan of Care Note [code = 92701-6] Goal Plan of Care Note [code = 93363-3] Goal Plan of Care Note [code = 50847-3] Goal Plan of Care Note [code = 51166-5] Goal Plan of Care Note [code = 06881-8] Goal Plan of Care Note [code = 54488-9] Goal Plan of Care Note [code = 05929-4] Goal Plan of Care Note [code = 99682-0] Goal Plan of Care Note [code = 64142-9] Goal Plan of Care Note [code = 50853-8] Goal Plan of Care Note [code = 72602-7] Goal Plan of Care Note [code = 90108-9] Goal Plan of Care Note [code = 17268-5] Goal Plan of Care Note [code = 17707-6] Goal Plan of Care Note [code = 29939-6] Goal Plan of Care Note [code = 21722-5] Goal Plan of Care Note [code = 23483-0] Goal Plan of Care Note [code = 28651-7] Goal Plan of Care Note [code = 76010-0] Goal Plan of Care Note [code = 40724-5] Goal Plan of Care Note [code = 85492-0] Goal Plan of Care Note [code = 92682-0] Goal Plan of Care Note [code = 00779-1] Goal Plan of Care Note [code = 22696-5] Goal Plan of Care Note [code = 34519-9] Goal Plan of Care Note [code = 70597-7] Goal Plan of Care Note [code = 77761-1] Goal Plan of Care Note [code = 58514-8] Goal Plan of Care Note [code = 20893-8] Goal Plan of Care Note [code = 15302-1] Goal Plan of Care Note [code = 01982-1] Goal Plan of Care Note [code = 22509-2] Goal Plan of Care Note [code = 38355-2] Goal Plan of Care Note [code = 79811-9] Goal Plan of Care Note [code = 13773-2] Goal Plan of Care Note [code = 76261-5] Goal Plan of Care Note [code = 98907-9] Goal Plan of Care Note [code = 70613-0] Goal Plan of Care Note [code = 77381-4] Goal Plan of Care Note [code = 99711-9] Goal Plan of Care Note [code = 34118-5] Goal Plan of Care Note [code = 87299-4] Goal Plan of Care Note [code = 18439-9] Goal Plan of Care Note [code = 77646-2] Goal Plan of Care Note [code = 86491-2] Goal Plan of Care Note [code = 29135-2] Goal Plan of Care Note [code = 97604-6] Goal Plan of Care Note [code = 19969-9] Goal Plan of Care Note [code = 75946-4] Goal Plan of Care Note [code = 65841-7] Goal Plan of Care Note [code = 65892-3] Goal Plan of Care Note [code = 46799-2] Goal Plan of Care Note [code = 53416-6] Goal Plan of Care Note [code = 38438-0] Goal Plan of Care Note [code = 09848-2] Goal Plan of Care Note [code = 80449-0] Goal Plan of Care Note [code = 03653-2] Goal Plan of Care Note [code = 26590-9] Encounters Start End Encounter Admission Attending Care Care Encounter Source Date/Time Date/Time Type Type Clinicians Facility Department ID 2021-08-14 Emergency [facility] [id number] Univers 07:02:03 ity of [facility] 2021-08-14 Emergency [facility] [id number] Univers 07:01:44 ity of [facility] 2021-08-14 Emergency [facility] [id number] Univers 06:49:26 ity of [facility] 2021-08-13 Emergency [facility] [id number] Univers 19:07:48 ity of [facility] 2021-08-13 Emergency [facility] [id number] [facility] 2023-10-24 Outpatient R [facility] [id number] Univers 10:00:00 [facility]23-09-14 2023-09-14 Outpatient R OBBERNABE YAMILET [facility] [id number] Univers 14:20:00 14:20:00 OBI-QUINYAMILET [facility] 2023-09-06 2023-09-06 Outpatient R ISSA YAMILET [facility] [id number] Univers 10:00:00 10:00:00 OBJaxno-QUINYAMILET [facility] 2023-08-21 2023-08-21 Outpatient R MARYELLEN [facility] [id number] Univers 12:33:32 23:59:00 ANEL masty o f [facility] 2023-08-21 2023-08-21 [facility] 1.2.840.114 [id number] Univers 12:33:32 23:59:00 Encounter [facility]13.10 [facility] Leah thomas PROFESSIO [id number] [place] dical [facility] 843 [facility] 2023-08-17 2023-08-17 Outpatient SFA BEATRICE 48832-4 023 Isra 13:28:30 13:28:30 1102 F [place] 2023-08-08 2023-08-08 Outpatient R [facility] [id number] Univers 10:00:00 10:00:00 ity [facility] 2023-08-07 2023-08-07 [facility] [id number] Univers 08:00:00 08:00:00 ANEL pace o f [facility] 2023-08-03 2023-08-03 Outpatient R [facility] [id number] Univers 09:00:00 09:00:00 ity of [facility] 2023-07-27 2023-07-27 Outpatient SFA BEATRICE [id number] 023 Isra 10:46:33 10:46:33 1012 [place] 2023-07-19 2023-07-19 Out[facility] [id number] Univers 13:20:00 14:10:55 HARESHDENIA sanjeev o f [facility] 2023-07-19 2023-07-19 Office [facility] 1.2.840.114 [id number] Univers 13:20:00 14:10:55 Visit Anel OLEA 350.1.13.10 [place] [id number] [place]ical NAL [address] [place] [address] 2023-07-19 2023-07-19 Letter [facility] 1.2.840.114 [id number] Univers 00:00:00 00:00:00 (Out) Anel OLEA 350.1.13.10 [place] [id number] [place] dical NAL 9 [facility] 2023-07-19 2023-07-19 [facility] 1.2.316.345 [id number] Univers 00:00:00 00:00:00 Jase OLEA 350.1.13.10 [place] [id number] [place] dical NAL 059 [facility] 2023-07-14 2023-07-14 Outpatient SFA BEATRICE [id number] 023 Isra 15:42:00 15:42:00 0929 [place] 2023-07-14 2023-07-14 Orders Doctor [facility] 1.2.840.114 [id number] Univers 00:00:00 00:00:00 Only Unassigned, BRAVO 350.1.13.10 ity of [place] [facility] 4.2.7.2.686 [place] [id number] Medi sosa [address] [place] 2023-06-30 2023-06-30 Outpatient SFA SFA [id number] 023 Isra 13:30:31 13:30:31 0915 [place] 2023-06-05 2023-06-05 Outpatient SFA SFA [id number] 023 Isra 10:17:25 10:17:25 08 [place] 2023-06-02 2023-06-02 Outpatient SFA SFA 39350-4 023 Isra 10:20:42 10:20:42 0818 [place] 2023-05-17 2023-05-17 Outpatient SFA SFA [id number] 023 Isra 13:52:25 13:52:25 0802 [place] 2023-05-16 2023-05-16 Outpatient SFA SFA [id number] 023 Isra 10:08:10 10:08:10 0801 [place] 2023-05-03 2023-05-03 Outpatient SFA SFA [id number] 023 Isra 08:20:35 08:20:35 0719 [place] 2023-04-28 2023-04-28 Outpatient SFA SFA 91882-7 023 Isra 14:18:50 14:18:50 0714 [place] 2023-04-19 2023-04-19 Outpatient SFA SFA [id number] 023 Isra 19:21:12 19:21:12 0705 [place] 2023-04-17 2023-04-17 Outpatient SFA SFA [id number] 023 Isra 15:01:36 15:01:36 0703 [facility] 2023-02-23 2023-02-23 Outpatient RASHAAD MERCADO [id number] Isis 08:45:00 08:45:00 Seybol d 2023-01-27 2023-01-27 Outpatient SFA SFA [id number] 023 Isra 08:48:03 08:48:03 0414 [facility] 2023-01-10 2023-01-10 Outpatient SFA SFA 66465-3 023 Isra 16:49:19 16:49:19 0328 [place] 2023-01-09 2023-01-09 Outpatient SFA SFA [id number] 023 Isra 10:38:51 10:38:51 0327 F [place] 2022-12-31 2022-12-31 Outpatient SFA SFA 29244-7 023 Isra 11:05:53 11:05:53 0318 [place] 2022-12-05 2022-12-05 Outpatient SFA SFA 33764-4 023 Isra 08:41:06 08:41:06 0220 [place] 2022-10-26 2022-10-26 Outpatient SFA SFA 49780-6 023 Isra 10:53:54 10:53:54 0111 [place] 2022-10-20 2022-10-20 Outpatient SFA SFA 89410-4 023 Isra 18:20:52 18:20:52 0105 [place] 2022-10-20 2022-10-20 Outpatient [id number]- [id number] 5t47y2-7 00:00:00 00:00:00 Visit 6i23-8k52 t43-2i73-4 -8dfe-cb4 dfe-cb41b9 1r62p837j 2x499w 2022-10-06 2022-10-06 Outpatient SFA SFA [id number] 022 Isra 13:07:12 13:07:12 1222 [place] 2022-10-06 2022-10-06 Outpatient [id number] [id number] 00:00:00 00:00:00 Visit 1k37-1yj6 n32-4kb9-p -adbf-403 dbf-29284q 17cc6jozh d3bcfe 2022-08-09 2022-08-09 Outpatient SFA SFA 05105-6 022 Isra 08:26:28 08:26:28 1025 F [place] 2022-07-30 2022-07-30 Outpatient [id number] j96d4u-7 00:00:00 00:00:00 Visit 922b-4d1f 22b-4d1f-8 -9p17-f2r o80-l2zq35 c0667jo55 87ff87 2022-07-27 2022-07-27 Outpatient [facility] 78067-7 Dong Dhaliwal 13:18:03 13:18:03 1012 F [place] 2022-07-27 2022-07-27 Outpatient s0yr4o73- [id number] [id number] ge3q24-a 00:00:00 00:00:00 Visit y949-9stt 512-4edc-b -c105-120 [id number] 353276u14 947a01 2022-07-23 2022-07-23 Emergency X [facility] ERT [id number] Univers 15:12:00 16:06:00 MALLORY pace [facility] 2022-07-23 2022-07-23 Emergency Wilbert [facility] 1.2.840.114 [id number] Univers 15:12:00 16:06:00 [facility]13.10 [facility] [id number] [facility] 084 [place] 2022-07-23 2022-07-23 Nurse CHICO Russo 1.2.840.114 [id number] Univers 00:00:00 00:00:00 Triage Thelma BRAVO 350.1.13.[address] [facility] 4.2.7.2.686 [facility] [id number] [facility] [address] [place] 2022-07-04 2022-07-04 Outpatient [id number] [id number] 00:00:00 00:00:00 Visit 7796-4ded 796-4ded-8 -8202-57f -57f9d6 2z4w3d224 p8v422 2021-06-29 2021-06-29 Outpatient Clinic [facility] 4296- 210 [place] 02:44:00 02:44:00 914 n [facility] 2021-03-05 2021-03-05 Outpatient Clinic [facility] 4296-20 210 [place] 09:41:00 09:41:00 521 n [facility] 2020-09-04 2020-09-04 Emergency X [facility] ERT [id number] Univers 21:51:00 22:55:00 CYNISE itkatherin [facility] 2020-09-04 2020-09-04 Emergency Akosua [facility] 1.2.719.224 [id number] 19:15:00 20:48:00 Tristen Olea 350.1.13.10 [place] 4.2.7.2.686 [place] [id number] 084 2020-09-04 2020-09-04 Emergency X AKOSUA [facility] ERT [id number] Univers 19:15:00 20:48:00 CYNLATONYA pace [facility] 2020-09-04 2020-09-04 Emergency Singer [facility] 1.2.252.616 [id number] 08:40:00 11:20:00 Keaton Olea 350.1.13.10 [place] 4.2.7.2.686 [place] [id number] 084 2020-08-25 2020-08-25 Outpatient R JULIET [facility] [id number] Univers 14:30:00 14:30:00 WONDIFUL ity o f [facility] 2020-08-18 2020-08-18 Laboratory Lab, [facility] 1.2.840.114 [id number] 08:30:53 08:55:02 Only [facility]am [facility] 350.1.13.10 [place] 4.2.7.2.686 Professio [id number] nal [address] 2020-08-18 2020-08-18 Outpatient R DWAYNE [facility] [id number] Univers 08:40:00 08:40:00 [facility] 2020-07-28 2020-07-28 Outpatient R JULIET [facility] [id number] Univers 14:30:00 14:30:00 WONDIFUL ity o f [facility] 2020-02-27 2020-02-27 Outpatient R NAKUL, [facility] [id number] Univers 17:00:00 17:00:00 ATTENDING [facility] 2019 2019 Outpatient R NAKUL, [facility] [id number] Univers 19:30:00 19:30:00 ATTENDING [facility] Results Test Description Test Time Test Comments Results Result Comments Source Transthoracic echo (TTE) 2023-08-21 22:47:13 Test Item Value Reference Range Interpretation Comme nts Height (test code = 5622480203) 63 in Weight (test code = 9434492417) 190 lbs Systolic BP (test code = 6858967289) 114 mmHg Diastolic BP (test code = 6865806781) 67 mmHg Heart Rate (test code = 7375059951) 76 bpm Ao root diam (test code = 0199509501) 2.41 cm Aortic root (test code = 6522202551) 2.41 cm Ao root annulus (test code = 2.41 cm 8919057364) BSA (test code = 6495537233) 1.89 m2 LVOT diameter (test code = 1651488665) 1.52 cm LVOT area (test code = 5329000105) 1.81 cm2 LA size (test code = 8327620266) 3.0 cm ACS (test code = 3556676015) 1.91 cm LVIDD (test code = 1432396621) 4.10 cm Left Ventricular End Diastolic Volume 75.5 mL by Teichholz Method (test code = 3696544) IVS (test code = 0229103672) 1.33 cm Interventricular Septum Diastolic 1.33 cm Thickness by 2D (test code = 8574679) LVPWD (test code = 8755757436) 1.44 cm PW (test code = 5258551706) 1.44 cm 0.6-1.1 EF(Teich) (test code = 4300983995) 74.10 % LVIDS (test code = 6898856016) 2.37 cm Left Ventricular End Systolic Volume 19.6 mL by Teichholz Method (test code = 0477223) FS (test code = 9503334282) 43 % EF - 2D (test code = 03829928) 74.10 % PV PEAK VELOCITY (test code = 120.0 cm/s 7907482682) PV peak gradient (test code = 5.8 mmHg 1490382703) LAV(MOD-sp4) (test code = 7178181864) 27.70 mL MV E-F slope (test code = 6191512623) 59.80 cm/s LVOT stroke volume (test code = 40.20 cm3 2998409659) LVOT peak herbert (test code = 2233375586) 109.0 cm/s LVOT mn grad (test code = 1341322279) 2.0 mmHg AV LVOT peak gradient (test code = 4.8 mmHg 8827823436) LVOT peak VTI (test code = 3583279954) 22.2 cm LV V1 mean (test code = 7183781408) 63.60 cm/s Aortic valve mean velocity (test code 97.5 cm/s = 1701718849) Ao peak herbert (test code = 0842096141) 170.0 cm/s Ao VTI (test code = 3486195449) 33.0 cm AV area by cont VTI (test code = 1.2 cm2 8510380628) AV area peak herbert (test code = 1.2 cm2 4506071107) Ao max PG (test code = 4434326740) 11.60 mm[Hg] AV peak gradient (test code = 11.6 mmHg 8674404419) AV valve area (test code = 4841435929) 1.22 cm2 AV mean gradient (test code = 4.6 mmHg 6846990154) TR Peak Herbert (test code = 4433311672) 134.7 cm/s Triscuspid Valve Regurgitation Peak 7.3 mmHg Gradient (test code = 3122541874) LA Volume Index (BP) (test code = 17.1 mL/m2 1498071098) LA volume (BP) (test code = 32.3 mL 3331624071) LAV(MOD-sp2) (test code = 3954714113) 35.00 mL Radiology Study observation (narrative) (test code = 44723-4) YUMIKO (test code = YUMIKO) ?Left?Ventricle: Left ventricle size is normal. Normal wall thickness. Normal wall motion. Normal systolic function with a visually estimated EF of 60 - 65%. Normal diastolic function. ?Right?Ventricle: Right ventricle size is normal. Normal systolic function. ?Tricuspid?Valve: Insufficient tricuspid regurgitation jet to estimate RVSP . ?RA pressure is 0-5 mmHg. Left VentricleLeft ventricle size is normal. Normal wall thickness. Normal wall motion. Normal systolic function with a visually estimated EF of 60 - 65%. Normal diastolic function.Right VentricleRight ventricle size is normal. Normal systolic function.Left AtriumLeft atrium size is normal.Right AtriumRight atrium size is normal.IVC/SVCIVC diameter is less than or equal to 21 mm and decreases greater than 50% during inspiration; therefore the estimated right atrial pressure is normal (~0-5 mmHg).Mitral ValveMitral valve structure is normal. Trace transvalvular regurgitation.Tricuspid ValveTricuspid valve structure is normal. Trace transvalvular regurgitation. Insufficient tricuspid regurgitation jet to estimate RVSP . RA pressure is 0-5 mmHg.Aortic ValveTricuspid.Pulmonic ValveValve structure is normal. Trace transvalvular regurgitation.Ascending AortaNormal sized aorta.PericardiumThe pericardium is normal. No pericardial effusion.Study DetailsStudy quality was adequate. A complete echocardiogram was performed using 2D, color flow Doppler and spectral Doppler. [facility] [id number] 02:37:11 Test Item Value Reference Range Interpretation Comments HIV 10/17 4TH GEN, RFLX CONF (test NON-REACTIVE NON-REACTIVE code = 3514) CT/NG, NAAT, [id number] 19:23:24 Test Item Value Reference Range Interpretation Comments CHLAMYDIA, NAAT, NEGATIVE NEGATIVE Testing is performed with URINE (test code Benjamin AMALIA 6800/8800 = 29792) systems usingre al-time polymerase adryan n reaction (PCR) method. A negative result does not exclude low level infection , specimensamplin g error, or collection erro r. GONORRHEA, NAAT, NEGATIVE NEGATIVE Testing is performed with URINE (test code Benjamin AMALIA 6800/8800 = 52471) systems usingre al-time polymerase adryan n reaction (PCR) method. A negative result does not exclude low level infection , specimensamplin g error, or collection erro r. [facility] has important p athology staff changes e ffective 12/14/2022. New pathology staff will provide uninterrupted, excellent patient care an d clinical consultation. S ee URL: [email or web address]. UNLESS OTHE RWISE INDICATED, ALL TESTING PERFORMED AT [facility] [employer] [address] [place] [address] LABORATOR Y DIRECTOR: USHA ACEVEDO M.D. [place] NUMBER [id number] CAP ACCREDITATION N O. [id number] VAGINAL PATHOGENS DNA [id number] 15:14:15 Test Item Value Reference Range Interpretation [...] and Trichomonas vag inalis nucleic acid. * [facility] has important patho logy staff changes effecti ve 12/14/2022. New pathology staff will provide uninterrupted, excellent patient care an d clinical consultation. S ee URL: [email or web address]. UNLESS OTHE RWISE INDICATED, [facility]. [address] [place] [address] LABORATOR Y DIRECTOR: USHA ACEVEDO M.D. [place] NUMBER [id number] CAP ACCREDITATION N O. [id number] RPR REFLEX TO T. PALLIDUM - [id number] 08:59:59 Test Item Value Reference Range Interpretation Comments RPR (test code = 53669) NON-REACTIVE NON-REACTIVE RPR TITER (test code = 3500) NOT INDIC. TITER NOT INDIC. CULTURE, [id number] 15:12:08SPECIMEN NUMBER: [id number] CULTURE, URINE SPECIMEN NUMBER: [id number] SPECIMEN COMMENT: URINE SOURCE:URINE REPORT STATUS: FINAL FINAL REPORT: 01/11/2023 <10,000 CFU/ML UROGENITAL CAMILO PRESENT NO CO MMON PATHOGENSENVIRONMENTAL IgE PANEL WITH TOTAL [id number] 19:17:03 Test Item Value Reference Range Interpretation Comments D. PTERONYSSINUS IgE 2.20 KU/L <0.35 H (test code = 74275) D. PTERONYS. CLASS 2 H (test code = 64086) D. FARINAE IgE (test 2.24 KU/L <0.35 H code = 82461) D. FARINAE CLASS (test 2 H code = 76677) CAT EPITHELIUM IgE 0.30 KU/L <0.35 (test code = 38913) CAT EPITHELIUM CLASS 0/1 (test code = 75921) DOG DANDER IgE (test <0.10 KU/L <0.35 code = 37889) DOG DANDER CLASS (test 0 code = 20340) COCKROACH, AMERICAN IgE 0.11 KU/L <0.35 (test code = 70942) COCKROACH, GRMN CLS 0/1 (test code = 76936) CHICKEN FEATHERS IgE <0.10 KU/L <0.35 (test code = 59533) CHICKEN FEATHER CLS 0 (test code = 90292) GOOSE FEATHERS IgE <0.10 KU/L <0.35 (test code = 71641) GOOSE FEATHERS CLASS 0 (test code = 36549) IMMUNOGLOBULIN E (IgE) 184 KU/L See_Comment [Aut omated message] (test code = 45235) The syst em which generated this result transmit denise reference range : <=219. The refe rence range was not u sed to interpret th is result as normal/abnormal . [facility] [id number] 15:06:22 Test Item Value Reference Range Interpretation [...] reported wit h out of range flagging. Testing performed on Ph stanley 1000 using ImmunoCAP Specific IgE reagents. * If Antibodies are followed by an asterisk (*) they have been developed and their performan ce characteristics determined by [facility] ([facility]). They have not b een cleared or approved by the U.S. Food and Drug Administra tion (FDA). The FDA has det ermined that such clearance or approval is not necessary. These assays are intended to be used for clinical purpos es. Analyte specific reagen ts were used. They should not be regarded as investigatio nal or for research. [facility] i s regulated under the Clini sosa Laboratory Improvement [place] ndments of 1987 (CLIA) as qualified to perform high co mplexity clinical testin g. [facility] has important p athology staff changes effecti ve 12/14/2022. New patholo gy staff will provide uninter rupted, excellent patie nt care and clinical consul tation. See URL: [email or web address]. UNLESS OTHER VENTURA INDICATED, ALL TESTING PERFORMED AT [facility] [employer] [address] [place] [address] LABORATORY DIRE CTOR: USHA ACEVEDO M.D. CLIA NUMBER [id number] CAP ACCREDITATION N O. [id number] CULTURE, [id number] 13:58:08SPECIMEN NUMBER: [id number] CULTURE, URINE SPECIMEN NUMBER: [id number] SPECIMEN COMMENT: URINE SOURCE:URINE REPORT STATUS: FINAL ISOLATE NUMBER 1: IDENTIFICATION: 10/28/2022 <10,000 CFU/ML BETA-STREPT OCOCCUS GROUP B ADDITIONAL OBSERVATIONS: PENICILLIN AND AMPICILLIN ARE DRUGS OF CHOICE FOR TREATMENT OF B-HEMOLYTIC STREPTOCOCCAL INFECTIONS. SUSCEPTIBILITY TESTING OF PENICILLIN AND OTHER B-LACTAMS APPROVED BY THE US FOOD AND DRUG ADMINISTRATION FOR TREATMENT OF B-HEMOLYTIC STREPTOCOCCAL INFECTIONSNEED NOT BE PERFORMED ROUTINELY.CT/NG, NAAT, [id number] 13:04:23 Test Item Value Reference Range Interpretation Comments GONORRHEA, NAAT NEGATIVE NEGATIVE Testing is performed with (test code = Benjamin AMALIA 680 43327) systems usingre al-time polymerase adryan n reaction (PCR) method. A negative result does not exclude low level infection , specimensamplin g error, or collection erro r. CHLAMYDIA, NAAT NEGATIVE NEGATIVE Testing is performed with (test code = Benjamin AMALIA 680 09363) systems usingre al-time polymerase adryan n reaction (PCR) method. A negative result does not exclude low level infection , specimensamplin g error, or collection erro r. VAGINAL PATHOGENS DNA [id number] 15:07:41 Test Item Value Reference Range Interpretation [...] nucleic acid. HIV 1/2 4TH GEN, RFLX [id number] 05:30:35 Test Item Value Reference Range Interpretation Comments HIV 1/2 4TH GEN, RFLX CONF (test NON-REACTIVE NON-REACTIVE code = 3514) HEPATITIS PANEL, [id number] 05:30:35 Test Item Value Reference Range Interpretation Comments HEPATITIS A IgM (test NON-REACTIVE NON-REACTIVE code = 14886) HEPATITIS B CORE IgM NON-REACTIVE NON-REACTIVE (test code = 4644) HEPATITIS B SURF AG NON-REACTIVE NON-REACTIVE (test code = 2739) HEPATITIS C ANTIBODY NON-REACTIVE NON-REACTIVE (test code = 4675) INTERPRETATION (NOTE) Hepatitis A HEPATITIS A: (test code sero logy shows no = 2552) evidence of acu te hepatitis A. INTERPRETATION (NOTE) Hepatitis B HEPATITIS B: (test code sero logy shows no = 37406) evidence of acu te hepatitis B and no indication of exposure to hepatitis B vir us in the previous yelena eight months. INTERPRETATION (NOTE) Hepatitis C HEPATITIS C: (test code sero logy shows no = 76526) evidence of exposure to hepatitisC viru s at this time. I t can take up to 12 months after exposure tothe hepatitis C vir us for antibodies to become detectab le in the blood in certain patient s. RPR REFLEX TO T. PALLIDUM - [id number] 05:11:36 Test Item Value Reference Range Interpretation Comments RPR (test code = NON-REACTIVE NON-REACTIVE 33669) RPR TITER (test NOT INDIC. NOT INDIC. UNLESS OTHE RWISE code = 3500) TITER INDICATED, ALL TESTING PERFORMED [facility] [place] [address] 4 LABORATORY DIRE CTOR: RODRIGO PISANO M.D. CLIA NUMBER [id number] [facility] [place] [id number] HEMOGLOBIN [id number] 07:47:26 Test Item Value Reference Range Interpretation Comments HEMOGLOBIN A1c (test code = 92602) 5.7 % 4.2-5.6 H CBC W/AUTO DIFF WITH [id number] 06:55:00 Test Item Value Reference Range Interpretation [...] RBCS 0.00 K/UL 0.00-0.11 (test code = 06184) TSH, THIRD [id number] 06:25:46 Test Item Value Reference Range Interpretation Comments TSH, THIRD GENERATION (test code 1.300 UIU/ML 0.400-4.100 = 2821) ALBUMIN/CREATININE RATIO, URINE, [id number] 05:38:18 Test Item Value Reference Range Interpretation Comments CREATININE, URINE, 125.4 MG/DL NOT ESTAB CONC. (test code = 2072) ALBUMIN, URINE, 0.7 MG/DL NOT ESTAB RANDOM (test code = 99580) CALC 6 MG/G <30 Note: ALBUMIN/CREAT, RND Albumin/C reatinine ratio (test code = reference inter alexa 29318) reflects ADA an d NKF guidelines. UNL ESS OTHERWISE INDIC ATED, ALL TESTING PERFORM [facility] [place]. [address] [place] [address] LABORATORY DIRE CTOR: RODRIGO PISANO M.D. CLIA NUMBER [id number] [facility] [place] [id number] COMPREHENSIVE METABOLIC [id number] 04:35:41 Test Item Value Reference Range Interpretation Comments GLUCOSE (test code = 94 MG/DL 70-99 2216) BUN (test code = 9 MG/DL 6-20 2207) CREATININE (test 0.73 MG/DL 0.60-1.30 code = 2214) eGFR (2020 CKD-EPI) 113 >60 (test code = 65293) ML/MIN/1.73 CALC BUN/CREAT (test 12 RATIO 6-28 code = 2235) SODIUM (test code = 139 MEQ/L 875-559 5056) POTASSIUM (test code 3.9 MEQ/L 3.5-5.4 = 2227) CHLORIDE (test code 102 MEQ/L 95-107 = 2214) CARBON DIOXIDE (test 25 MEQ/L 19-31 code = 220) CALCIUM (test code = 9.5 MG/DL 8.5-10.5 2208) PROTEIN, TOTAL (test 7.8 G/DL 6.1-8.3 code = 2228) ALBUMIN (test code = 4.6 G/DL 3.5-5.2 2200) CALC GLOBULIN (test 3.2 G/DL 1.9-3.7 code = 224) CALC A/G RATIO (test 1.4 RATIO 1.0-2.6 code = 2234) BILIRUBIN, TOTAL 0.3 MG/DL See_Comment [Automated message] (test code = 2206) The syste m which generated this result transmit denise reference range : <=1.2. The refe rence range was not u sed to interpret th is result as normal/abnormal . ALKALINE PHOSPHATASE 53 U/L 40-114 (test code = 2203) AST (test code = 19 U/L 9-40 2217) ALT (test code = 13 U/L 5-40 2218) LIPID [id number] 04:35:41 Test Item Value Reference Range Interpretation [...] MOREINFORMATION , SEE CLIENT ANNOUNCE MENT AT [email or web address] [email or web address] RATIO LDL/HDL 2.67 RATIO <3.22 (test code = 2238) ALBUMIN/CREATININE RATIO, RANDOM [id number] 00:00:00 Test Item Value Reference Range Interpretation Comments CREATININE, URINE, CONC. (test 125.4 MG/DL code = 2071) ALBUMIN, URINE, RANDOM (test code 0.7 MG/DL = 93106) CALC ALBUMIN/CREAT, RND (test 6 MG/G code = 11728) ALBUMIN/CREATININE RATIO, RANDOM [id number] 00:00:00 Test Item Value Reference Range Interpretation Comments CREATININE, URINE, CONC. (test 125.4 MG/DL code = 2072) ALBUMIN, URINE, RANDOM (test code 0.7 MG/DL = 39877) CALC ALBUMIN/CREAT, RND (test 6 MG/G code = 21041) CBC W/AUTO [id number] 00:00:00 Test Item Value Reference Range Interpretation [...] NUCLEATED RBCS (test code = 0.00 K/UL 28965) CBC W/AUTO [id number] 00:00:00 Test Item Value Reference Range Interpretation [...] NUCLEATED RBCS (test code = 0.00 K/UL 02324) CBC W/AUTO [id number] 00:00:00 Test Item Value Reference Range Interpretation [...] NUCLEATED RBCS (test code = 0.00 K/UL 42187) COMPREHENSIVE METABOLIC [id number] 00:00:00 Test Item Value Reference Range Interpretation Comments GLUCOSE (test code = 2217) 94 MG/DL BUN (test code = 2208) 9 MG/DL CREATININE (test code = 2214) 0.73 MG/DL eGFR (2020 CKD-EPI) (test 113 ML/MIN/1.73 code = 36395) CALC BUN/CREAT (test code = 12 RATIO 223) SODIUM (test code = 2231) 139 MEQ/L [...] code = 2219) 13 U/L COMPREHENSIVE METABOLIC [id number] 00:00:00 Test Item Value Reference Range Interpretation Comments GLUCOSE (test code = 2217) 94 MG/DL BUN (test code = 2208) 9 MG/DL CREATININE (test code = 2214) 0.73 MG/DL eGFR (2020 CKD-EPI) (test 113 ML/MIN/1.73 code = 56004) CALC BUN/CREAT (test code = 12 RATIO [...] (test code = 2219) 13 U/L LIPID [id number] 00:00:00 Test Item Value Reference Range Interpretation Comments CHOLESTEROL (test code = 2210) 222 MG/DL TRIGLYCERIDES (test code = 2232) 272 MG/DL HDL CHOLESTEROL (test code = 2220) 49 MG/DL CALC LDL CHOL (test code = 2237) 131 MG/DL RISK RATIO LDL/HDL (test code = 2.67 RATIO 2238) LIPID [id number] 00:00:00 Test Item Value Reference Range Interpretation Comments CHOLESTEROL (test code = 2210) 222 MG/DL TRIGLYCERIDES (test code = 2232) 272 MG/DL HDL CHOLESTEROL (test code = 2220) 49 MG/DL CALC LDL CHOL (test code = 2237) 131 MG/DL RISK RATIO LDL/HDL (test code = 2.67 RATIO 2238) HEMOGLOBIN [id number] 00:00:00 Test Item Value Reference Range Interpretation Comments HEMOGLOBIN A1c (test code = 97728) 5.7 % HEMOGLOBIN [id number] 00:00:00 Test Item Value Reference Range Interpretation Comments HEMOGLOBIN A1c (test code = 68178) 5.7 % HEMOGLOBIN [id number] 00:00:00 Test Item Value Reference Range Interpretation Comments HEMOGLOBIN A1c (test code = 45360) 5.7 % TSH, THIRD [id number] 00:00:00 Test Item Value Reference Range Interpretation Comments TSH, THIRD GENERATION (test code 1.300 UIU/ML = 2821) TSH, THIRD [id number] 00:00:00 Test Item Value Reference Range Interpretation Comments TSH, THIRD GENERATION (test code 1.300 UIU/ML = 2821) TSH, THIRD [id number] 00:00:00 Test Item Value Reference Range Interpretation Comments TSH, THIRD GENERATION (test code 1.300 UIU/ML = 2821) ALBUMIN/CREATININE RATIO, RANDOM [id number] 00:00:00 Test Item Value Reference Range Interpretation Comments CREATININE, URINE, CONC. (test 125.4 MG/DL code = 2072) ALBUMIN, URINE, RANDOM (test code 0.7 MG/DL = 40222) CALC ALBUMIN/CREAT, RND (test 6 MG/G code = 34758) ALBUMIN/CREATININE RATIO, RANDOM [id number] 00:00:00 Test Item Value Reference Range Interpretation Comments CREATININE, URINE, CONC. (test 125.4 MG/DL code = 2072) ALBUMIN, URINE, RANDOM (test code 0.7 MG/DL = 94217) CALC ALBUMIN/CREAT, RND (test 6 MG/G code = 65758) CBC W/AUTO [id number] 00:00:00 Test Item Value Reference Range Interpretation [...] NUCLEATED RBCS (test code = 0.00 K/UL 53730) CBC W/AUTO [id number] 00:00:00 Test Item Value Reference Range Interpretation [...] NUCLEATED RBCS (test code = 0.00 K/UL 68856) CBC W/AUTO [id number] 00:00:00 Test Item Value Reference Range Interpretation [...] NUCLEATED RBCS (test code = 0.00 K/UL 60400) COMPREHENSIVE METABOLIC [id number] 00:00:00 Test Item Value Reference Range Interpretation Comments GLUCOSE (test code = 2217) 94 MG/DL BUN (test code = 2208) 9 MG/DL CREATININE (test code = 2214) 0.73 MG/DL eGFR (2020 CKD-EPI) (test 113 ML/MIN/1.73 code = 25298) CALC BUN/CREAT (test code = 12 RATIO [...] code = 2219) 13 U/L COMPREHENSIVE METABOLIC [id number] 00:00:00 Test Item Value Reference Range Interpretation Comments GLUCOSE (test code = 2217) 94 MG/DL BUN (test code = 2208) 9 MG/DL CREATININE (test code = 2214) 0.73 MG/DL eGFR (2020 CKD-EPI) (test 113 ML/MIN/1.73 code = 66671) CALC BUN/CREAT (test code = 12 RATIO 2235) SODIUM (test code = 2231) 139 MEQ/L POTASSIUM (test code = 2228) 3.9 MEQ/L CHLORIDE (test code = 2215) 102 MEQ/L CARBON DIOXIDE (test code = 25 MEQ/L 2205) CALCIUM (test code = 2209) 9.5 MG/DL PROTEIN, TOTAL (test code = 7.8 G/DL 2228) ALBUMIN (test code = 220) 4.6 G/DL CALC GLOBULIN (test code = 3.2 G/DL 2239) CALC A/G RATIO (test code = 1.4 RATIO 2233) BILIRUBIN, TOTAL (test code = 0.3 MG/DL 2206) ALKALINE PHOSPHATASE (test 53 U/L code = 2204) AST (test code = 2218) 19 U/L ALT (test code = 2219) 13 U/L LIPID [id number] 00:00:00 Test Item Value Reference Range Interpretation Comments CHOLESTEROL (test code = 2210) 222 MG/DL TRIGLYCERIDES (test code = 2232) 272 MG/DL HDL CHOLESTEROL (test code = 2220) 49 MG/DL CALC LDL CHOL (test code = 2237) 131 MG/DL RISK RATIO LDL/HDL (test code = 2.67 RATIO 2238) LIPID [id number] 00:00:00 Test Item Value Reference Range Interpretation Comments CHOLESTEROL (test code = 2210) 222 MG/DL TRIGLYCERIDES (test code = 2232) 272 MG/DL HDL CHOLESTEROL (test code = 2220) 49 MG/DL CALC LDL CHOL (test code = 2237) 131 MG/DL RISK RATIO LDL/HDL (test code = 2.67 RATIO 2238) HEMOGLOBIN [id number] 00:00:00 Test Item Value Reference Range Interpretation Comments HEMOGLOBIN A1c (test code = 51616) 5.7 % HEMOGLOBIN [id number] 00:00:00 Test Item Value Reference Range Interpretation Comments HEMOGLOBIN A1c (test code = 05750) 5.7 % HEMOGLOBIN [id number] 00:00:00 Test Item Value Reference Range Interpretation Comments HEMOGLOBIN A1c (test code = 15060) 5.7 % TSH, THIRD [id number] 00:00:00 Test Item Value Reference Range Interpretation Comments TSH, THIRD GENERATION (test code 1.300 UIU/ML = 2821) TSH, THIRD [id number] 00:00:00 Test Item Value Reference Range Interpretation Comments TSH, THIRD GENERATION (test code 1.300 UIU/ML = 2821) TSH, THIRD [id number] 00:00:00 Test Item Value Reference Range Interpretation Comments TSH, THIRD GENERATION (test code 1.300 UIU/ML = 2821) VAGINAL PATHOGENS DNA [id number] 14:16:13 Test Item Value Reference Range Interpretation Comments RONNA SPECIES (test NEGATIVE NEGATIVE code = 28300) G. VAGINALIS (test POSITIVE NEGATIVE A code = 41847) T. VAGINALIS (test NEGATIVE NEGATIVE UNLESS O THERWISE code = 13121) INDICATED, ALL TESTING PERFORMED [facility] PATHOLOGY [facility]. [address] [place] [address] 4 LABORATORY DIRE CTOR: RODRIGO PISANO M.D. CLIA NUMBER [id number] [facility] [place] [id number] VAGINAL PATHOGENS DNA PANEL [ADDED]2021-10-05 00:00:00 Test Item Value Reference Range Interpretation Comments RONNA SPECIES (test code = 50195) NEGATIVE G. VAGINALIS (test code = 18940) POSITIVE T. VAGINALIS (test code = 16156) NEGATIVE VAGINAL PATHOGENS DNA PANEL [ADDED]2021-10-05 00:00:00 Test Item Value Reference Range Interpretation Comments RONNA SPECIES (test code = 61089) NEGATIVE G. VAGINALIS (test code = 68281) POSITIVE T. VAGINALIS (test code = 84202) NEGATIVE VAGINAL PATHOGENS DNA PANEL [ADDED]2021-10-05 00:00:00 Test Item Value Reference Range Interpretation Comments RONNA SPECIES (test code = 34908) NEGATIVE G. VAGINALIS (test code = 18194) POSITIVE T. VAGINALIS (test code = 21669) NEGATIVE VAGINAL PATHOGENS DNA PANEL [ADDED]2021-10-05 00:00:00 Test Item Value Reference Range Interpretation Comments RONNA SPECIES (test code = 73245) NEGATIVE G. VAGINALIS (test code = 43513) POSITIVE T. VAGINALIS (test code = 72809) NEGATIVE VAGINAL PATHOGENS DNA PANEL [ADDED]2021-10-05 00:00:00 Test Item Value Reference Range Interpretation Comments RONNA SPECIES (test code = 52581) NEGATIVE G. VAGINALIS (test code = 71678) POSITIVE T. VAGINALIS (test code = 68493) NEGATIVE VAGINAL PATHOGENS DNA PANEL [ADDED]2021-10-05 00:00:00 Test Item Value Reference Range Interpretation Comments RONNA SPECIES (test code = 94594) NEGATIVE G. VAGINALIS (test code = 26233) POSITIVE T. VAGINALIS (test code = 60702) NEGATIVE VAGINAL PATHOGENS DNA PANEL [ADDED]2021-10-05 00:00:00 Test Item Value Reference Range Interpretation Comments RONNA SPECIES (test code = 12183) NEGATIVE G. VAGINALIS (test code = 41813) POSITIVE T. VAGINALIS (test code = 50625) NEGATIVE VAGINAL PATHOGENS DNA PANEL [ADDED]2021-10-05 00:00:00 Test Item Value Reference Range Interpretation Comments RONNA SPECIES (test code = 06946) NEGATIVE G. VAGINALIS (test code = 28773) POSITIVE T. VAGINALIS (test code = 36172) NEGATIVE VAGINAL PATHOGENS DNA PANEL [ADDED]2021-10-05 00:00:00 Test Item Value Reference Range Interpretation Comments RONNA SPECIES (test code = 18802) NEGATIVE G. VAGINALIS (test code = 45230) POSITIVE T. VAGINALIS (test code = 89030) NEGATIVE VAGINAL PATHOGENS DNA PANEL [ADDED]2021-10-05 00:00:00 Test Item Value Reference Range Interpretation Comments RONNA SPECIES (test code = 44423) NEGATIVE G. VAGINALIS (test code = 15802) POSITIVE T. VAGINALIS (test code = 73970) NEGATIVE MUMPS IgG AND [id number] 00:00:00 Test Item Value Reference Range Interpretation Comments MUMPS VIRUS IgG (test code = 32.3 AU/mL 74843) MUMPS VIRUS IgM (test code = 4587) 0.35 IV MUMPS IgG AND [id number] 00:00:00 Test Item Value Reference Range Interpretation Comments MUMPS VIRUS IgG (test code = 32.3 AU/mL 76684) MUMPS VIRUS IgM (test code = 4587) 0.35 IV MUMPS IgG AND [id number] 00:00:00 Test Item Value Reference Range Interpretation Comments MUMPS VIRUS IgG (test code = 32.3 AU/mL 79534) MUMPS VIRUS IgM (test code = 4587) 0.35 IV MUMPS IgG AND [id number] 00:00:00 Test Item Value Reference Range Interpretation Comments MUMPS VIRUS IgG (test code = 32.3 AU/mL 65580) MUMPS VIRUS IgM (test code = 4587) 0.35 IV MUMPS IgG AND [id number] 00:00:00 Test Item Value Reference Range Interpretation Comments MUMPS VIRUS IgG (test code = 32.3 AU/mL 12616) MUMPS VIRUS IgM (test code = 4587) 0.35 IV MUMPS IgG AND [id number] 00:00:00 Test Item Value Reference Range Interpretation Comments M[facility] VIRUS IgG (test code = 32.3 AU/mL 45710) M[facility] VIRUS IgM (test code = 4587) 0.35 IV MUMPS IgG AND [id number] 00:00:00 Test Item Value Reference Range Interpretation Comments M[facility]PS VIRUS IgG (test code = 32.3 AU/mL 06037) M[facility]PS VIRUS IgM (test code = 4587) 0.35 IV MUMPS IgG AND [id number] 00:00:00 Test Item Value Reference Range Interpretation Comments M[facility]PS VIRUS IgG (test code = 32.3 AU/mL 06803) M[facility]PS VIRUS IgM (test code = 4587) 0.35 IV MUMPS IgG AND [id number] 00:00:00 Test Item Value Reference Range Interpretation Comments [facility] VIRUS IgG (test code = 32.3 AU/mL 13235) MUMPS VIRUS IgM (test code = 4587) 0.35 IV MUMPS IgG AND [id number] 00:00:00 Test Item Value Reference Range Interpretation Comments MUMPS VIRUS IgG (test code = 32.3 AU/mL 95702) MUMPS VIRUS IgM (test code = 4587) 0.35 IV RUBEOLA IgG [id number] 00:00:00 Test Item Value Reference Range Interpretation Comments RUBEOLA IgG ANTIBODY (test code = 166.0 AU/ML 18074) VARICELLA ZOSTER [id number] 00:00:00 Test Item Value Reference Range Interpretation Comments VARICELLA ZOSTER IgG (test code = >2000 INDEX 92092) VARICELLA ZOSTER [id number] 00:00:00 Test Item Value Reference Range Interpretation Comments VARICELLA ZOSTER IgG (test code = >2000 INDEX 27254) RUBEOLA IgG [id number] 00:00:00 Test Item Value Reference Range Interpretation Comments RUBEOLA IgG ANTIBODY (test code = 166.0 AU/ML 56124) RUBEOLA IgG [id number] 00:00:00 Test Item Value Reference Range Interpretation Comments RUBEOLA IgG ANTIBODY (test code = 166.0 AU/ML 01143) VARICELLA ZOSTER [id number] 00:00:00 Test Item Value Reference Range Interpretation Comments VARICELLA ZOSTER IgG (test code = >2000 INDEX 63282) VARICELLA ZOSTER [id number] 00:00:00 Test Item Value Reference Range Interpretation Comments VARICELLA ZOSTER IgG (test code = >2000 INDEX 07131) RUBEOLA IgG [id number] 00:00:00 Test Item Value Reference Range Interpretation Comments RUBEOLA IgG ANTIBODY (test code = 166.0 AU/ML 23764) RUBEOLA IgG [id number] 00:00:00 Test Item Value Reference Range Interpretation Comments RUBEOLA IgG ANTIBODY (test code = 166.0 AU/ML 34580) VARICELLA ZOSTER [id number] 00:00:00 Test Item Value Reference Range Interpretation Comments VARICELLA ZOSTER IgG (test code = >2000 INDEX 07390) VARICELLA ZOSTER [id number] 00:00:00 Test Item Value Reference Range Interpretation Comments VARICELLA ZOSTER IgG (test code = >2000 INDEX 56192) VARICELLA ZOSTER [id number] 00:00:00 Test Item Value Reference Range Interpretation Comments VARICELLA ZOSTER IgG (test code = >2000 INDEX 45113) RUBEOLA IgG [id number] 00:00:00 Test Item Value Reference Range Interpretation Comments RUBEOLA IgG ANTIBODY (test code = 166.0 AU/ML 00625) RUBEOLA IgG [id number] 00:00:00 Test Item Value Reference Range Interpretation Comments RUBEOLA IgG ANTIBODY (test code = 166.0 AU/ML 53394) VARICELLA ZOSTER [id number] 00:00:00 Test Item Value Reference Range Interpretation Comments VARICELLA ZOSTER IgG (test code = >2000 INDEX 25738) VARICELLA ZOSTER [id number] 00:00:00 Test Item Value Reference Range Interpretation Comments VARICELLA ZOSTER IgG (test code = >2000 INDEX 89671) VARICELLA ZOSTER [id number] 00:00:00 Test Item Value Reference Range Interpretation Comments VARICELLA ZOSTER IgG (test code = >2000 INDEX 20609) RUBEOLA IgG [id number] 00:00:00 Test Item Value Reference Range Interpretation Comments RUBEOLA IgG ANTIBODY (test code = 166.0 AU/ML 95275) RUBEOLA IgG [id number] 00:00:00 Test Item Value Reference Range Interpretation Comments RUBEOLA IgG ANTIBODY (test code = 166.0 AU/ML 81694) RUBEOLA IgG [id number] 00:00:00 Test Item Value Reference Range Interpretation Comments RUBEOLA IgG ANTIBODY (test code = 166.0 AU/ML 19101) RUBELLA ANTIBODY [id number] 00:00:00 Test Item Value Reference Range Interpretation Comments RUBELLA ANTIBODY SCREEN (test code 247 IU/ML = 4600) RUBELLA IgG INTERP (test code = REACTIVE 07187) RUBELLA ANTIBODY [id number] 00:00:00 Test Item Value Reference Range Interpretation Comments RUBELLA ANTIBODY SCREEN (test code 247 IU/ML = 4600) RUBELLA IgG INTERP (test code = REACTIVE 53790) RUBELLA ANTIBODY [id number] 00:00:00 Test Item Value Reference Range Interpretation Comments RUBELLA ANTIBODY SCREEN (test code 247 IU/ML = 4600) RUBELLA IgG INTERP (test code = REACTIVE 00472) RUBELLA ANTIBODY [id number] 00:00:00 Test Item Value Reference Range Interpretation Comments RUBELLA ANTIBODY SCREEN (test code 247 IU/ML = 4600) RUBELLA IgG INTERP (test code = REACTIVE 16511) RUBELLA ANTIBODY [id number] 00:00:00 Test Item Value Reference Range Interpretation Comments RUBELLA ANTIBODY SCREEN (test code 247 IU/ML = 4600) RUBELLA IgG INTERP (test code = REACTIVE 21841) RUBELLA ANTIBODY [id number] 00:00:00 Test Item Value Reference Range Interpretation Comments RUBELLA ANTIBODY SCREEN (test code 247 IU/ML = 4600) RUBELLA IgG INTERP (test code = REACTIVE 55779) RUBELLA ANTIBODY [id number] 00:00:00 Test Item Value Reference Range Interpretation Comments RUBELLA ANTIBODY SCREEN (test code 247 IU/ML = 4600) RUBELLA IgG INTERP (test code = REACTIVE 92695) RUBELLA ANTIBODY [id number] 00:00:00 Test Item Value Reference Range Interpretation Comments RUBELLA ANTIBODY SCREEN (test code 247 IU/ML = 4600) RUBELLA IgG INTERP (test code = REACTIVE 46862) RUBELLA ANTIBODY [id number] 00:00:00 Test Item Value Reference Range Interpretation Comments RUBELLA ANTIBODY SCREEN (test code 247 IU/ML = 4600) RUBELLA IgG INTERP (test code = REACTIVE 37796) RUBELLA ANTIBODY [id number] 00:00:00 Test Item Value Reference Range Interpretation Comments RUBELLA ANTIBODY SCREEN (test code 247 IU/ML = 4600) RUBELLA IgG INTERP (test code = REACTIVE 33725) HIV AB/AG COMBO RFLX [id number] 00:00:00 Test Item Value Reference Range Interpretation Comments HIV 1/2 4TH GEN, RFLX CONF (test NON-REACTIVE code = 3514) [id number] 00:00:00 Test Item Value Reference Range Interpretation Comments RPR RESULT (test code = NON-REACTIVE 3501) RPR TITER (test code = 3500) NOT INDIC. TITER [id number] 00:00:00 Test Item Value Reference Range Interpretation Comments RPR RESULT (test code = NON-REACTIVE 3501) RPR TITER (test code = 3500) NOT INDIC. TITER [id number] 00:00:00 Test Item Value Reference Range Interpretation Comments RPR RESULT (test code = NON-REACTIVE 3501) RPR TITER (test code = 3500) NOT INDIC. TITER VAGINAL PATHOGENS DNA [id number] 00:00:00 Test Item Value Reference Range Interpretation Comments RONNA SPECIES (test code = 62780) NEGATIVE G. VAGINALIS (test code = 82970) POSITIVE T. VAGINALIS (test code = 09704) NEGATIVE VAGINAL PATHOGENS DNA [id number] 00:00:00 Test Item Value Reference Range Interpretation Comments RONNA SPECIES (test code = 76289) NEGATIVE G. VAGINALIS (test code = 38725) POSITIVE T. VAGINALIS (test code = 87352) NEGATIVE GC AND CHLAMYDIA, AMPLIFIED, [id number] 00:00:00 Test Item Value Reference Range Interpretation Comments GONORRHEA, NAAT (test code = 09786) NEGATIVE CHLAMYDIA, NAAT (test code = 68335) NEGATIVE GC AND CHLAMYDIA, AMPLIFIED, [id number] 00:00:00 Test Item Value Reference Range Interpretation Comments GONORRHEA, NAAT (test code = 12502) NEGATIVE CHLAMYDIA, NAAT (test code = 61117) NEGATIVE HIV AB/AG COMBO RFLX [id number] 00:00:00 Test Item Value Reference Range Interpretation Comments HIV 1/2 4TH GEN, RFLX CONF (test NON-REACTIVE code = 3514) HIV AB/AG COMBO RFLX [id number] 00:00:00 Test Item Value Reference Range Interpretation Comments HIV 1/2 4TH GEN, RFLX CONF (test NON-REACTIVE code = 3514) [id number] 00:00:00 Test Item Value Reference Range Interpretation Comments RPR RESULT (test code = NON-REACTIVE 3501) RPR TITER (test code = 3500) NOT INDIC. TITER [id number] 00:00:00 Test Item Value Reference Range Interpretation Comments RPR RESULT (test code = NON-REACTIVE 3501) RPR TITER (test code = 3500) NOT INDIC. TITER [id number] 00:00:00 Test Item Value Reference Range Interpretation Comments RPR RESULT (test code = NON-REACTIVE 3501) RPR TITER (test code = 3500) NOT INDIC. TITER VAGINAL PATHOGENS DNA [id number] 00:00:00 Test Item Value Reference Range Interpretation Comments RONNA SPECIES (test code = ) NEGATIVE G. VAGINALIS (test code = 06867) POSITIVE T. VAGINALIS (test code = 92320) NEGATIVE VAGINAL PATHOGENS DNA [id number] 00:00:00 Test Item Value Reference Range Interpretation Comments RONNA SPECIES (test code = 91008) NEGATIVE G. VAGINALIS (test code = 11355) POSITIVE T. VAGINALIS (test code = 76489) NEGATIVE GC AND CHLAMYDIA, AMPLIFIED, [id number] 00:00:00 Test Item Value Reference Range Interpretation Comments GONORRHEA, NAAT (test code = 86953) NEGATIVE CHLAMYDIA, NAAT (test code = 05792) NEGATIVE GC AND CHLAMYDIA, AMPLIFIED, [id number] 00:00:00 Test Item Value Reference Range Interpretation Comments GONORRHEA, NAAT (test code = 46785) NEGATIVE CHLAMYDIA, NAAT (test code = 42889) NEGATIVE HIV AB/AG COMBO RFLX [id number] 00:00:00 Test Item Value Reference Range Interpretation Comments HIV 1/2 4TH GEN, RFLX CONF (test NON-REACTIVE code = 3514) VAGINAL PATHOGENS DNA [id number] 00:00:00 Test Item Value Reference Range Interpretation Comments RONNA SPECIES (test code = ) NEGATIVE G. VAGINALIS (test code = 88670) POSITIVE T. VAGINALIS (test code = 89648) NEGATIVE HIV AB/AG COMBO RFLX [id number] 00:00:00 Test Item Value Reference Range Interpretation Comments HIV 1/2 4TH GEN, RFLX CONF (test NON-REACTIVE code = 3514) [id number] 00:00:00 Test Item Value Reference Range Interpretation Comments RPR RESULT (test code = NON-REACTIVE 3501) RPR TITER (test code = 3500) NOT INDIC. TITER [id number] 00:00:00 Test Item Value Reference Range Interpretation Comments RPR RESULT (test code = NON-REACTIVE 3501) RPR TITER (test code = 3500) NOT INDIC. TITER [id number] 00:00:00 Test Item Value Reference Range Interpretation Comments RPR RESULT (test code = NON-REACTIVE 3501) RPR TITER (test code = 3500) NOT INDIC. TITER VAGINAL PATHOGENS DNA [id number] 00:00:00 Test Item Value Reference Range Interpretation Comments RONNA SPECIES (test code = ) NEGATIVE G. VAGINALIS (test code = 45339) POSITIVE T. VAGINALIS (test code = 45882) NEGATIVE VAGINAL PATHOGENS DNA [id number] 00:00:00 Test Item Value Reference Range Interpretation Comments RONNA SPECIES (test code = 22076) NEGATIVE G. VAGINALIS (test code = 63206) POSITIVE T. VAGINALIS (test code = 55521) NEGATIVE VAGINAL PATHOGENS DNA [id number] 00:00:00 Test Item Value Reference Range Interpretation Comments RONNA SPECIES (test code = 80459) NEGATIVE G. VAGINALIS (test code = 26969) POSITIVE T. VAGINALIS (test code = 83546) NEGATIVE GC AND CHLAMYDIA, AMPLIFIED, [id number] 00:00:00 Test Item Value Reference Range Interpretation Comments GONORRHEA, NAAT (test code = 94818) NEGATIVE CHLAMYDIA, NAAT (test code = 37590) NEGATIVE GC AND CHLAMYDIA, AMPLIFIED, [id number] 00:00:00 Test Item Value Reference Range Interpretation Comments GONORRHEA, NAAT (test code = 70210) NEGATIVE CHLAMYDIA, NAAT (test code = 33003) NEGATIVE HIV AB/AG COMBO RFLX [id number] 00:00:00 Test Item Value Reference Range Interpretation Comments HIV 1/2 4TH GEN, RFLX CONF (test NON-REACTIVE code = 3514) HIV AB/AG COMBO RFLX [id number] 00:00:00 Test Item Value Reference Range Interpretation Comments HIV 1/2 4TH GEN, RFLX CONF (test NON-REACTIVE code = 3514) [id number] 00:00:00 Test Item Value Reference Range Interpretation Comments RPR RESULT (test code = NON-REACTIVE 3501) RPR TITER (test code = 3500) NOT INDIC. TITER [id number] 00:00:00 Test Item Value Reference Range Interpretation Comments RPR RESULT (test code = NON-REACTIVE 3501) RPR TITER (test code = 3500) NOT INDIC. TITER [id number] 00:00:00 Test Item Value Reference Range Interpretation Comments RPR RESULT (test code = NON-REACTIVE 3501) RPR TITER (test code = 3500) NOT INDIC. TITER GC AND CHLAMYDIA, AMPLIFIED, [id number] 00:00:00 Test Item Value Reference Range Interpretation Comments GONORRHEA, NAAT (test code = 36766) NEGATIVE CHLAMYDIA, NAAT (test code = 95899) NEGATIVE GC AND CHLAMYDIA, AMPLIFIED, [id number] 00:00:00 Test Item Value Reference Range Interpretation Comments GONORRHEA, NAAT (test code = 19207) NEGATIVE CHLAMYDIA, NAAT (test code = 33521) NEGATIVE VAGINAL PATHOGENS DNA [id number] 00:00:00 Test Item Value Reference Range Interpretation Comments RONNA SPECIES (test code = ) NEGATIVE G. VAGINALIS (test code = ) POSITIVE T. VAGINALIS (test code = ) NEGATIVE VAGINAL PATHOGENS DNA [id number] 00:00:00 Test Item Value Reference Range Interpretation Comments RONNA SPECIES (test code = ) NEGATIVE G. VAGINALIS (test code = 04353) POSITIVE T. VAGINALIS (test code = 42431) NEGATIVE GC AND CHLAMYDIA, AMPLIFIED, [id number] 00:00:00 Test Item Value Reference Range Interpretation Comments GONORRHEA, NAAT (test code = 64335) NEGATIVE CHLAMYDIA, NAAT (test code = 81628) NEGATIVE HIV AB/AG COMBO RFLX [id number] 00:00:00 Test Item Value Reference Range Interpretation Comments HIV 1/2 4TH GEN, RFLX CONF (test NON-REACTIVE code = 3514) GC AND CHLAMYDIA, AMPLIFIED, [id number] 00:00:00 Test Item Value Reference Range Interpretation Comments GONORRHEA, NAAT (test code = 42694) NEGATIVE CHLAMYDIA, NAAT (test code = 93942) NEGATIVE HIV AB/AG COMBO RFLX [id number] 00:00:00 Test Item Value Reference Range Interpretation Comments HIV 1/2 4TH GEN, RFLX CONF (test NON-REACTIVE code = 3514) HIV AB/AG COMBO RFLX [id number] 00:00:00 Test Item Value Reference Range Interpretation Comments HIV 1/2 4TH GEN, RFLX CONF (test NON-REACTIVE code = 3514) [id number] 00:00:00 Test Item Value Reference Range Interpretation Comments RPR RESULT (test code = NON-REACTIVE 3501) RPR TITER (test code = 3500) NOT INDIC. TITER [id number] 00:00:00 Test Item Value Reference Range Interpretation Comments RPR RESULT (test code = NON-REACTIVE 3501) RPR TITER (test code = 3500) NOT INDIC. TITER [id number] 00:00:00 Test Item Value Reference Range Interpretation Comments RPR RESULT (test code = NON-REACTIVE 3501) RPR TITER (test code = 3500) NOT INDIC. TITER FSH + LH [id number] 00:00:00 Test Item Value Reference Range Interpretation Comments FOLLICLE STIM HORMONE (test code = 3.2 IU/L 2700) LUTEINIZING HORMONE (test code = 4.8 IU/L 2776) DHEA [id number] 00:00:00 Test Item Value Reference Range Interpretation Comments DHEA SULFATE (test code = 4225) 406 UG/DL DHEA [id number] 00:00:00 Test Item Value Reference Range Interpretation Comments DHEA SULFATE (test code = 4225) 406 UG/DL [id number] 00:00:00 Test Item Value Reference Range Interpretation Comments TESTOSTERONE (test code = 2830) 34 NG/DL [id number] 00:00:00 Test Item Value Reference Range Interpretation Comments TESTOSTERONE (test code = 2830) 34 NG/DL [id number] 00:00:00 Test Item Value Reference Range Interpretation Comments PROGESTERONE (test code = 2790) 5.24 NG/ML [id number] 00:00:00 Test Item Value Reference Range Interpretation Comments PROGESTERONE (test code = 2790) 5.24 NG/ML COMPREHENSIVE METABOLIC [id number] 00:00:00 Test Item Value Reference Range Interpretation Comments GLUCOSE (test code = 2217) 90 MG/DL BUN (test code = 2208) 16 MG/DL CREATININE (test code = 2214) 0.67 MG/DL eGFR AMER. (test code 137 ML/MIN/1.73 = 56125) eGFR NON- AMER. (test 118 ML/MIN/1.73 code = 18108) CALC BUN/CREAT (test code = 24 RATIO [...] ALT (test code = 2219) 17 U/L [id number] 00:00:00 Test Item Value Reference Range Interpretation Comments TSH, THIRD GENERATION (test code 1.400 UIU/ML = 2821) [id number] 00:00:00 Test Item Value Reference Range Interpretation Comments TSH, THIRD GENERATION (test code 1.400 UIU/ML = 2821) [id number] 00:00:00 Test Item Value Reference Range Interpretation Comments TSH, THIRD GENERATION (test code 1.400 UIU/ML = 2821) [id number] 00:00:00 Test Item Value Reference Range Interpretation Comments PROLACTIN (test code = 2800) 27.5 NG/ML [id number] 00:00:00 Test Item Value Reference Range Interpretation Comments PROLACTIN (test code = 2800) 27.5 NG/ML FSH + LH [id number] 00:00:00 Test Item Value Reference Range Interpretation Comments FOLLICLE STIM HORMONE (test code = 3.2 IU/L 2700) LUTEINIZING HORMONE (test code = 4.8 IU/L 2776) FSH + LH [id number] 00:00:00 Test Item Value Reference Range Interpretation Comments FOLLICLE STIM HORMONE (test code = 3.2 IU/L 2700) LUTEINIZING HORMONE (test code = 4.8 IU/L 2776) DHEA [id number] 00:00:00 Test Item Value Reference Range Interpretation Comments DHEA SULFATE (test code = 4225) 406 UG/DL DHEA [id number] 00:00:00 Test Item Value Reference Range Interpretation Comments DHEA SULFATE (test code = 4225) 406 UG/DL [id number] 00:00:00 Test Item Value Reference Range Interpretation Comments TESTOSTERONE (test code = 2830) 34 NG/DL [id number] 00:00:00 Test Item Value Reference Range Interpretation Comments TESTOSTERONE (test code = 2830) 34 NG/DL [id number] 00:00:00 Test Item Value Reference Range Interpretation Comments PROGESTERONE (test code = 2790) 5.24 NG/ML [id number] 00:00:00 Test Item Value Reference Range Interpretation Comments PROGESTERONE (test code = 2790) 5.24 NG/ML HEMOGLOBIN [id number] 00:00:00 Test Item Value Reference Range Interpretation Comments HEMOGLOBIN A1c (test code = 72391) 5.4 % HEMOGLOBIN [id number] 00:00:00 Test Item Value Reference Range Interpretation Comments HEMOGLOBIN A1c (test code = 24527) 5.4 % HEMOGLOBIN [id number] 00:00:00 Test Item Value Reference Range Interpretation Comments HEMOGLOBIN A1c (test code = 52582) 5.4 % LIPID [id number] 00:00:00 Test Item Value Reference Range Interpretation Comments CHOLESTEROL (test code = 2210) 181 MG/DL TRIGLYCERIDES (test code = 2232) 126 MG/DL HDL CHOLESTEROL (test code = 2220) 52 MG/DL CALC LDL CHOL (test code = 2237) 106 MG/DL RISK RATIO LDL/HDL (test code = 2.04 RATIO 2238) LIPID [id number] 00:00:00 Test Item Value Reference Range Interpretation Comments CHOLESTEROL (test code = 2210) 181 MG/DL TRIGLYCERIDES (test code = 2232) 126 MG/DL HDL CHOLESTEROL (test code = 2220) 52 MG/DL CALC LDL CHOL (test code = 2237) 106 MG/DL RISK RATIO LDL/HDL (test code = 2.04 RATIO 2238) COMPREHENSIVE METABOLIC [id number] 00:00:00 Test Item Value Reference Range Interpretation Comments GLUCOSE (test code = 2217) 90 MG/DL BUN (test code = 2208) 16 MG/DL CREATININE (test code = 2214) 0.67 MG/DL eGFR AMER. (test code 137 ML/MIN/1.73 = 63556) eGFR NON- AMER. (test 118 ML/MIN/1.73 code = 63486) CALC BUN/CREAT (test code = 24 RATIO [...] code = 2219) 17 U/L COMPREHENSIVE METABOLIC [id number] 00:00:00 Test Item Value Reference Range Interpretation Comments GLUCOSE (test code = 2217) 90 MG/DL BUN (test code = 2208) 16 MG/DL CREATININE (test code = 2214) 0.67 MG/DL eGFR AMER. (test code 137 ML/MIN/1.73 = 50173) eGFR NON- AMER. (test 118 ML/MIN/1.73 code = 70059) CALC BUN/CREAT (test code = 24 RATIO [...] ALT (test code = 2219) 17 U/L [id number] 00:00:00 Test Item Value Reference Range Interpretation Comments TSH, THIRD GENERATION (test code 1.400 UIU/ML = 2821) [id number] 00:00:00 Test Item Value Reference Range Interpretation Comments TSH, THIRD GENERATION (test code 1.400 UIU/ML = 2821) [id number] 00:00:00 Test Item Value Reference Range Interpretation Comments TSH, THIRD GENERATION (test code 1.400 UIU/ML = 2821) [id number] 00:00:00 Test Item Value Reference Range Interpretation Comments PROLACTIN (test code = 2800) 27.5 NG/ML [id number] 00:00:00 Test Item Value Reference Range Interpretation Comments PROLACTIN (test code = 2800) 27.5 NG/ML FSH + LH [id number] 00:00:00 Test Item Value Reference Range Interpretation Comments FOLLICLE STIM HORMONE (test code = 3.2 IU/L 2700) LUTEINIZING HORMONE (test code = 4.8 IU/L 2776) FSH + LH [id number] 00:00:00 Test Item Value Reference Range Interpretation Comments FOLLICLE STIM HORMONE (test code = 3.2 IU/L 2700) LUTEINIZING HORMONE (test code = 4.8 IU/L 2776) DHEA [id number] 00:00:00 Test Item Value Reference Range Interpretation Comments DHEA SULFATE (test code = 4225) 406 UG/DL DHEA [id number] 00:00:00 Test Item Value Reference Range Interpretation Comments DHEA SULFATE (test code = 4225) 406 UG/DL [id number] 00:00:00 Test Item Value Reference Range Interpretation Comments TESTOSTERONE (test code = 2830) 34 NG/DL [id number] 00:00:00 Test Item Value Reference Range Interpretation Comments TESTOSTERONE (test code = 2830) 34 NG/DL [id number] 00:00:00 Test Item Value Reference Range Interpretation Comments PROGESTERONE (test code = 2790) 5.24 NG/ML [id number] 00:00:00 Test Item Value Reference Range Interpretation Comments PROGESTERONE (test code = 2790) 5.24 NG/ML HEMOGLOBIN [id number] 00:00:00 Test Item Value Reference Range Interpretation Comments HEMOGLOBIN A1c (test code = 27315) 5.4 % HEMOGLOBIN [id number] 00:00:00 Test Item Value Reference Range Interpretation Comments HEMOGLOBIN A1c (test code = 52336) 5.4 % HEMOGLOBIN [id number] 00:00:00 Test Item Value Reference Range Interpretation Comments HEMOGLOBIN A1c (test code = 13101) 5.4 % LIPID [id number] 00:00:00 Test Item Value Reference Range Interpretation Comments CHOLESTEROL (test code = 2210) 181 MG/DL TRIGLYCERIDES (test code = 2232) 126 MG/DL HDL CHOLESTEROL (test code = 2220) 52 MG/DL CALC LDL CHOL (test code = 2237) 106 MG/DL RISK RATIO LDL/HDL (test code = 2.04 RATIO 2238) LIPID [id number] 00:00:00 Test Item Value Reference Range Interpretation Comments CHOLESTEROL (test code = 2210) 181 MG/DL TRIGLYCERIDES (test code = 2232) 126 MG/DL HDL CHOLESTEROL (test code = 2220) 52 MG/DL CALC LDL CHOL (test code = 2237) 106 MG/DL RISK RATIO LDL/HDL (test code = 2.04 RATIO 2238) COMPREHENSIVE METABOLIC [id number] 00:00:00 Test Item Value Reference Range Interpretation Comments GLUCOSE (test code = 2217) 90 MG/DL BUN (test code = 2208) 16 MG/DL CREATININE (test code = 2214) 0.67 MG/DL eGFR AMER. (test code 137 ML/MIN/1.73 = 89160) eGFR NON- AMER. (test 118 ML/MIN/1.73 code = 46227) CALC BUN/CREAT (test code = 24 RATIO [...] code = 2219) 17 U/L COMPREHENSIVE METABOLIC [id number] 00:00:00 Test Item Value Reference Range Interpretation Comments GLUCOSE (test code = 2217) 90 MG/DL BUN (test code = 2208) 16 MG/DL CREATININE (test code = 2214) 0.67 MG/DL eGFR AMER. (test code 137 ML/MIN/1.73 = 38380) eGFR NON- AMER. (test 118 ML/MIN/1.73 code = 14697) CALC BUN/CREAT (test code = 24 RATIO [...] ALT (test code = 2219) 17 U/L [id number] 00:00:00 Test Item Value Reference Range Interpretation Comments TSH, THIRD GENERATION (test code 1.400 UIU/ML = 2821) [id number] 00:00:00 Test Item Value Reference Range Interpretation Comments TSH, THIRD GENERATION (test code 1.400 UIU/ML = 2821) [id number] 00:00:00 Test Item Value Reference Range Interpretation Comments TSH, THIRD GENERATION (test code 1.400 UIU/ML = 2821) [id number] 00:00:00 Test Item Value Reference Range Interpretation Comments PROLACTIN (test code = 2800) 27.5 NG/ML [id number] 00:00:00 Test Item Value Reference Range Interpretation Comments PROLACTIN (test code = 2800) 27.5 NG/ML FSH + LH [id number] 00:00:00 Test Item Value Reference Range Interpretation Comments FOLLICLE STIM HORMONE (test code = 3.2 IU/L 2700) LUTEINIZING HORMONE (test code = 4.8 IU/L 2776) FSH + LH [id number] 00:00:00 Test Item Value Reference Range Interpretation Comments FOLLICLE STIM HORMONE (test code = 3.2 IU/L 2700) LUTEINIZING HORMONE (test code = 4.8 IU/L 2776) DHEA [id number] 00:00:00 Test Item Value Reference Range Interpretation Comments DHEA SULFATE (test code = 4225) 406 UG/DL DHEA [id number] 00:00:00 Test Item Value Reference Range Interpretation Comments DHEA SULFATE (test code = 4225) 406 UG/DL [id number] 00:00:00 Test Item Value Reference Range Interpretation Comments TESTOSTERONE (test code = 2830) 34 NG/DL [id number] 00:00:00 Test Item Value Reference Range Interpretation Comments TESTOSTERONE (test code = 2830) 34 NG/DL [id number] 00:00:00 Test Item Value Reference Range Interpretation Comments PROGESTERONE (test code = 2790) 5.24 NG/ML [id number] 00:00:00 Test Item Value Reference Range Interpretation Comments PROGESTERONE (test code = 2790) 5.24 NG/ML HEMOGLOBIN [id number] 00:00:00 Test Item Value Reference Range Interpretation Comments HEMOGLOBIN A1c (test code = 58627) 5.4 % HEMOGLOBIN [id number] 00:00:00 Test Item Value Reference Range Interpretation Comments HEMOGLOBIN A1c (test code = 35877) 5.4 % HEMOGLOBIN [id number] 00:00:00 Test Item Value Reference Range Interpretation Comments HEMOGLOBIN A1c (test code = 42773) 5.4 % HEMOGLOBIN [id number] 00:00:00 Test Item Value Reference Range Interpretation Comments HEMOGLOBIN A1c (test code = 41826) 5.4 % HEMOGLOBIN [id number] 00:00:00 Test Item Value Reference Range Interpretation Comments HEMOGLOBIN A1c (test code = 97909) 5.4 % HEMOGLOBIN [id number] 00:00:00 Test Item Value Reference Range Interpretation Comments HEMOGLOBIN A1c (test code = 76427) 5.4 % LIPID [id number] 00:00:00 Test Item Value Reference Range Interpretation Comments CHOLESTEROL (test code = 2210) 181 MG/DL TRIGLYCERIDES (test code = 2232) 126 MG/DL HDL CHOLESTEROL (test code = 2220) 52 MG/DL CALC LDL CHOL (test code = 2237) 106 MG/DL RISK RATIO LDL/HDL (test code = 2.04 RATIO 2238) LIPID [id number] 00:00:00 Test Item Value Reference Range Interpretation Comments CHOLESTEROL (test code = 2210) 181 MG/DL TRIGLYCERIDES (test code = 2232) 126 MG/DL HDL CHOLESTEROL (test code = 2220) 52 MG/DL CALC LDL CHOL (test code = 2237) 106 MG/DL RISK RATIO LDL/HDL (test code = 2.04 RATIO 2238) COMPREHENSIVE METABOLIC [id number] 00:00:00 Test Item Value Reference Range Interpretation Comments GLUCOSE (test code = 2217) 90 MG/DL BUN (test code = 2208) 16 MG/DL CREATININE (test code = 2214) 0.67 MG/DL eGFR AMER. (test code 137 ML/MIN/1.73 = 73473) eGFR NON- AMER. (test 118 ML/MIN/1.73 code = 93856) CALC BUN/CREAT (test code = 24 RATIO [...] code = 2219) 17 U/L COMPREHENSIVE METABOLIC [id number] 00:00:00 Test Item Value Reference Range Interpretation Comments GLUCOSE (test code = 2217) 90 MG/DL BUN (test code = 2208) 16 MG/DL CREATININE (test code = 2214) 0.67 MG/DL eGFR AMER. (test code 137 ML/MIN/1.73 = 67194) eGFR NON- AMER. (test 118 ML/MIN/1.73 code = 04926) CALC BUN/CREAT (test code = 24 RATIO [...] BILIRUBIN, TOTAL (test code = 0.5 MG/DL 7) ALKALINE PHOSPHATASE (test 41 U/L code = 2204) AST (test code = 2218) 19 U/L ALT (test code = 2219) 17 U/L [id number] 00:00:00 Test Item Value Reference Range Interpretation Comments TSH, THIRD GENERATION (test code 1.400 UIU/ML = 2821) [id number] 00:00:00 Test Item Value Reference Range Interpretation Comments TSH, THIRD GENERATION (test code 1.400 UIU/ML = 2821) [id number] 00:00:00 Test Item Value Reference Range Interpretation Comments TSH, THIRD GENERATION (test code 1.400 UIU/ML = 2821) [id number] 00:00:00 Test Item Value Reference Range Interpretation Comments PROLACTIN (test code = 2800) 27.5 NG/ML [id number] 00:00:00 Test Item Value Reference Range Interpretation Comments PROLACTIN (test code = 2800) 27.5 NG/ML FSH + LH [id number] 00:00:00 Test Item Value Reference Range Interpretation Comments FOLLICLE STIM HORMONE (test code = 3.2 IU/L 2700) LUTEINIZING HORMONE (test code = 4.8 IU/L 2776) FSH + LH [id number] 00:00:00 Test Item Value Reference Range Interpretation Comments FOLLICLE STIM HORMONE (test code = 3.2 IU/L 2700) LUTEINIZING HORMONE (test code = 4.8 IU/L 2776) DHEA [id number] 00:00:00 Test Item Value Reference Range Interpretation Comments DHEA SULFATE (test code = 4225) 406 UG/DL DHEA [id number] 00:00:00 Test Item Value Reference Range Interpretation Comments DHEA SULFATE (test code = 4225) 406 UG/DL [id number] 00:00:00 Test Item Value Reference Range Interpretation Comments TESTOSTERONE (test code = 2830) 34 NG/DL [id number] 00:00:00 Test Item Value Reference Range Interpretation Comments TESTOSTERONE (test code = 2830) 34 NG/DL [id number] 00:00:00 Test Item Value Reference Range Interpretation Comments PROGESTERONE (test code = 2790) 5.24 NG/ML [id number] 00:00:00 Test Item Value Reference Range Interpretation Comments PROGESTERONE (test code = 2790) 5.24 NG/ML LIPID [id number] 00:00:00 Test Item Value Reference Range Interpretation Comments CHOLESTEROL (test code = 2210) 181 MG/DL TRIGLYCERIDES (test code = 2232) 126 MG/DL HDL CHOLESTEROL (test code = 2220) 52 MG/DL CALC LDL CHOL (test code = 2237) 106 MG/DL RISK RATIO LDL/HDL (test code = 2.04 RATIO 2238) LIPID [id number] 00:00:00 Test Item Value Reference Range Interpretation Comments CHOLESTEROL (test code = 2210) 181 MG/DL TRIGLYCERIDES (test code = 2232) 126 MG/DL HDL CHOLESTEROL (test code = 2220) 52 MG/DL CALC LDL CHOL (test code = 2237) 106 MG/DL RISK RATIO LDL/HDL (test code = 2.04 RATIO 2238) HEMOGLOBIN [id number] 00:00:00 Test Item Value Reference Range Interpretation Comments HEMOGLOBIN A1c (test code = 65959) 5.4 % HEMOGLOBIN [id number] 00:00:00 Test Item Value Reference Range Interpretation Comments HEMOGLOBIN A1c (test code = 53261) 5.4 % HEMOGLOBIN [id number] 00:00:00 Test Item Value Reference Range Interpretation Comments HEMOGLOBIN A1c (test code = 92697) 5.4 % LIPID [id number] 00:00:00 Test Item Value Reference Range Interpretation Comments CHOLESTEROL (test code = 2210) 181 MG/DL TRIGLYCERIDES (test code = 2232) 126 MG/DL HDL CHOLESTEROL (test code = 2220) 52 MG/DL CALC LDL CHOL (test code = 2237) 106 MG/DL RISK RATIO LDL/HDL (test code = 2.04 RATIO 2238) LIPID [id number] 00:00:00 Test Item Value Reference Range Interpretation Comments CHOLESTEROL (test code = 2210) 181 MG/DL TRIGLYCERIDES (test code = 2232) 126 MG/DL HDL CHOLESTEROL (test code = 2220) 52 MG/DL CALC LDL CHOL (test code = 2237) 106 MG/DL RISK RATIO LDL/HDL (test code = 2.04 RATIO 2238) COMPREHENSIVE METABOLIC [id number] 00:00:00 Test Item Value Reference Range Interpretation Comments GLUCOSE (test code = 2217) 90 MG/DL BUN (test code = 2208) 16 MG/DL CREATININE (test code = 2214) 0.67 MG/DL eGFR AMER. (test code 137 ML/MIN/1.73 = 78001) eGFR NON- AMER. (test 118 ML/MIN/1.73 code = 24336) CALC BUN/CREAT (test code = 24 RATIO [...] CALC GLOBULIN (test code = 3.1 G/DL 224) CALC A/G RATIO (test code = 1.4 RATIO 2233) BILIRUBIN, TOTAL (test code = 0.5 MG/DL 2206) ALKALINE PHOSPHATASE (test 41 U/L code = 2204) AST (test code = 2218) 19 U/L ALT (test code = 2219) 17 U/L COMPREHENSIVE METABOLIC [id number] 00:00:00 Test Item Value Reference Range Interpretation Comments GLUCOSE (test code = 2217) 90 MG/DL BUN (test code = 2208) 16 MG/DL CREATININE (test code = 2214) 0.67 MG/DL eGFR AMER. (test code 137 ML/MIN/1.73 = 05047) eGFR NON- AMER. (test 118 ML/MIN/1.73 code = 73017) CALC BUN/CREAT (test code = 24 RATIO [...] ALT (test code = 2219) 17 U/L [id number] 00:00:00 Test Item Value Reference Range Interpretation Comments TSH, THIRD GENERATION (test code 1.400 UIU/ML = 2821) [id number] 00:00:00 Test Item Value Reference Range Interpretation Comments TSH, THIRD GENERATION (test code 1.400 UIU/ML = 2821) COMPREHENSIVE METABOLIC [id number] 00:00:00 Test Item Value Reference Range Interpretation Comments GLUCOSE (test code = 2217) 90 MG/DL BUN (test code = 2208) 16 MG/DL CREATININE (test code = 2214) 0.67 MG/DL eGFR AMER. (test code 137 ML/MIN/1.73 = 57818) eGFR NON- AMER. (test 118 ML/MIN/1.73 code = 91636) CALC BUN/CREAT (test code = 24 RATIO [...] ALT (test code = 2219) 17 U/L [id number] 00:00:00 Test Item Value Reference Range Interpretation Comments TSH, THIRD GENERATION (test code 1.400 UIU/ML = 2821) [id number] 00:00:00 Test Item Value Reference Range Interpretation Comments PROLACTIN (test code = 2800) 27.5 NG/ML [id number] 00:00:00 Test Item Value Reference Range Interpretation Comments PROLACTIN (test code = 2800) 27.5 NG/ML FSH + LH [id number] 00:00:00 Test Item Value Reference Range Interpretation Comments FOLLICLE STIM HORMONE (test code = 3.2 IU/L 2700) LUTEINIZING HORMONE (test code = 4.8 IU/L 2776) VAGINAL PATHOGENS DNA [id number] 00:00:00 Test Item Value Reference Range Interpretation Comments RONNA SPECIES (test code = ) NEGATIVE G. VAGINALIS (test code = 71129) POSITIVE T. VAGINALIS (test code = 22117) NEGATIVE VAGINAL PATHOGENS DNA [id number] 00:00:00 Test Item Value Reference Range Interpretation Comments RONNA SPECIES (test code = 44017) NEGATIVE G. VAGINALIS (test code = 03529) POSITIVE T. VAGINALIS (test code = 22382) NEGATIVE VAGINAL PATHOGENS DNA [id number] 00:00:00 Test Item Value Reference Range Interpretation Comments RONNA SPECIES (test code = 36702) NEGATIVE G. VAGINALIS (test code = 59178) POSITIVE T. VAGINALIS (test code = 38900) NEGATIVE VAGINAL PATHOGENS DNA [id number] 00:00:00 Test Item Value Reference Range Interpretation Comments RONNA SPECIES (test code = 49216) NEGATIVE G. VAGINALIS (test code = 43178) POSITIVE T. VAGINALIS (test code = 31665) NEGATIVE VAGINAL PATHOGENS DNA [id number] 00:00:00 Test Item Value Reference Range Interpretation Comments RONNA SPECIES (test code = 42209) NEGATIVE G. VAGINALIS (test code = 39535) POSITIVE T. VAGINALIS (test code = 42213) NEGATIVE VAGINAL PATHOGENS DNA [id number] 00:00:00 Test Item Value Reference Range Interpretation Comments RONNA SPECIES (test code = 08319) NEGATIVE G. VAGINALIS (test code = 28450) POSITIVE T. VAGINALIS (test code = 11124) NEGATIVE VAGINAL PATHOGENS DNA [id number] 00:00:00 Test Item Value Reference Range Interpretation Comments RONNA SPECIES (test code = 80103) NEGATIVE G. VAGINALIS (test code = 65150) POSITIVE T. VAGINALIS (test code = 26247) NEGATIVE VAGINAL PATHOGENS DNA [id number] 00:00:00 Test Item Value Reference Range Interpretation Comments RONNA SPECIES (test code = 46315) NEGATIVE G. VAGINALIS (test code = 77227) POSITIVE T. VAGINALIS (test code = 23102) NEGATIVE VAGINAL PATHOGENS DNA [id number] 00:00:00 Test Item Value Reference Range Interpretation Comments RONNA SPECIES (test code = 21447) NEGATIVE G. VAGINALIS (test code = 75638) POSITIVE T. VAGINALIS (test code = 26181) NEGATIVE VAGINAL PATHOGENS DNA [id number] 00:00:00 Test Item Value Reference Range Interpretation Comments RONNA SPECIES (test code = 55533) NEGATIVE G. VAGINALIS (test code = 07374) POSITIVE T. VAGINALIS (test code = 44439) NEGATIVE VAGINAL PATHOGENS DNA [id number] 00:00:00 Test Item Value Reference Range Interpretation Comments RONNA SPECIES (test code = 36797) NEGATIVE G. VAGINALIS (test code = 71061) POSITIVE T. VAGINALIS (test code = 77178) NEGATIVE VAGINAL PATHOGENS DNA [id number] 00:00:00 Test Item Value Reference Range Interpretation Comments RONNA SPECIES (test code = 46063) NEGATIVE G. VAGINALIS (test code = 24175) POSITIVE T. VAGINALIS (test code = 68104) NEGATIVE VAGINAL PATHOGENS DNA [id number] 00:00:00 Test Item Value Reference Range Interpretation Comments RONNA SPECIES (test code = 36907) NEGATIVE G. VAGINALIS (test code = 37454) POSITIVE T. VAGINALIS (test code = 66956) NEGATIVE VAGINAL PATHOGENS DNA [id number] 00:00:00 Test Item Value Reference Range Interpretation Comments RONNA SPECIES (test code = 83979) NEGATIVE G. VAGINALIS (test code = 35621) POSITIVE T. VAGINALIS (test code = 98545) NEGATIVE VAGINAL PATHOGENS DNA [id number] 00:00:00 Test Item Value Reference Range Interpretation Comments RONNA SPECIES (test code = 79137) NEGATIVE G. VAGINALIS (test code = 16280) POSITIVE T. VAGINALIS (test code = 07028) NEGATIVE VAGINAL PATHOGENS DNA [id number] 00:00:00 Test Item Value Reference Range Interpretation Comments RONNA SPECIES (test code = 82926) NEGATIVE G. VAGINALIS (test code = 36546) POSITIVE T. VAGINALIS (test code = 42271) NEGATIVE VAGINAL PATHOGENS DNA [id number] 00:00:00 Test Item Value Reference Range Interpretation Comments RONNA SPECIES (test code = 21461) NEGATIVE G. VAGINALIS (test code = 63173) POSITIVE T. VAGINALIS (test code = 18399) NEGATIVE VAGINAL PATHOGENS DNA [id number] 00:00:00 Test Item Value Reference Range Interpretation Comments RONNA SPECIES (test code = 81924) NEGATIVE G. VAGINALIS (test code = 03008) POSITIVE T. VAGINALIS (test code = 01612) NEGATIVE VAGINAL PATHOGENS DNA [id number] 00:00:00 Test Item Value Reference Range Interpretation Comments RONNA SPECIES (test code = 87274) NEGATIVE G. VAGINALIS (test code = 68606) POSITIVE T. VAGINALIS (test code = 54186) NEGATIVE VAGINAL PATHOGENS DNA [id number] 00:00:00 Test Item Value Reference Range Interpretation Comments RONNA SPECIES (test code = 38441) NEGATIVE G. VAGINALIS (test code = 32789) POSITIVE T. VAGINALIS (test code = 46499) NEGATIVE COMPREHENSIVE METABOLIC [id number] 00:00:00 Test Item Value Reference Range Interpretation Comments GLUCOSE (test code = 2217) 88 MG/DL BUN (test code = 2208) 20 MG/DL CREATININE (test code = 2214) 0.98 MG/DL eGFR AMER. (test code 90 ML/MIN/1.73 = 08464) eGFR NON- AMER. (test 77 ML/MIN/1.73 code = 03655) CALC BUN/CREAT (test code = 20 RATIO [...] ALT (test code = 2219) 13 U/L [id number] 00:00:00 Test Item Value Reference Range Interpretation Comments TSH, THIRD GENERATION (test code 0.587 UIU/ML = 2821) [id number] 00:00:00 Test Item Value Reference Range Interpretation Comments TSH, THIRD GENERATION (test code 0.587 UIU/ML = 2821) [id number] 00:00:00 Test Item Value Reference Range Interpretation Comments TSH, THIRD GENERATION (test code 0.587 UIU/ML = 2821) CBC W/AUTO [id number] 00:00:00 Test Item Value Reference Range Interpretation [...] code = 1015) 314 K/UL CBC W/AUTO [id number] 00:00:00 Test Item Value Reference Range Interpretation [...] code = 1015) 314 K/UL CBC W/AUTO [id number] 00:00:00 Test Item Value Reference Range Interpretation [...] (test code = 1015) 314 K/UL LIPID [id number] 00:00:00 Test Item Value Reference Range Interpretation Comments CHOLESTEROL (test code = 2210) 202 MG/DL TRIGLYCERIDES (test code = 2232) 169 MG/DL HDL CHOLESTEROL (test code = 2220) 62 MG/DL CALC LDL CHOL (test code = 2237) 111 MG/DL RISK RATIO LDL/HDL (test code = 1.79 RATIO 2238) LIPID [id number] 00:00:00 Test Item Value Reference Range Interpretation Comments CHOLESTEROL (test code = 2210) 202 MG/DL TRIGLYCERIDES (test code = 2232) 169 MG/DL HDL CHOLESTEROL (test code = 2220) 62 MG/DL CALC LDL CHOL (test code = 2237) 111 MG/DL RISK RATIO LDL/HDL (test code = 1.79 RATIO 2238) COMPREHENSIVE METABOLIC [id number] 00:00:00 Test Item Value Reference Range Interpretation Comments GLUCOSE (test code = 2217) 88 MG/DL BUN (test code = 2208) 20 MG/DL CREATININE (test code = 2214) 0.98 MG/DL eGFR AMER. (test code 90 ML/MIN/1.73 = 48693) eGFR NON- AMER. (test 77 ML/MIN/1.73 code = 17192) CALC BUN/CREAT (test code = 20 RATIO [...] code = 2219) 13 U/L COMPREHENSIVE METABOLIC [id number] 00:00:00 Test Item Value Reference Range Interpretation Comments GLUCOSE (test code = 2217) 88 MG/DL BUN (test code = 2208) 20 MG/DL CREATININE (test code = 2214) 0.98 MG/DL eGFR AMER. (test code 90 ML/MIN/1.73 = 33803) eGFR NON- AMER. (test 77 ML/MIN/1.73 code = 43256) CALC BUN/CREAT (test code = 20 RATIO [...] ALT (test code = 2219) 13 U/L [id number] 00:00:00 Test Item Value Reference Range Interpretation Comments TSH, THIRD GENERATION (test code 0.587 UIU/ML = 2821) [id number] 00:00:00 Test Item Value Reference Range Interpretation Comments TSH, THIRD GENERATION (test code 0.587 UIU/ML = 2821) [id number] 00:00:00 Test Item Value Reference Range Interpretation Comments TSH, THIRD GENERATION (test code 0.587 UIU/ML = 2821) CBC W/AUTO [id number] 00:00:00 Test Item Value Reference Range Interpretation [...] code = 1015) 314 K/UL CBC W/AUTO [id number] 00:00:00 Test Item Value Reference Range Interpretation [...] code = 1015) 314 K/UL CBC W/AUTO [id number] 00:00:00 Test Item Value Reference Range Interpretation [...] (test code = 1015) 314 K/UL LIPID [id number] 00:00:00 Test Item Value Reference Range Interpretation Comments CHOLESTEROL (test code = 2210) 202 MG/DL TRIGLYCERIDES (test code = 2232) 169 MG/DL HDL CHOLESTEROL (test code = 2220) 62 MG/DL CALC LDL CHOL (test code = 2237) 111 MG/DL RISK RATIO LDL/HDL (test code = 1.79 RATIO 2238) LIPID [id number] 00:00:00 Test Item Value Reference Range Interpretation Comments CHOLESTEROL (test code = 2210) 202 MG/DL TRIGLYCERIDES (test code = 2232) 169 MG/DL HDL CHOLESTEROL (test code = 2220) 62 MG/DL CALC LDL CHOL (test code = 2237) 111 MG/DL RISK RATIO LDL/HDL (test code = 1.79 RATIO 2238) COMPREHENSIVE METABOLIC [id number] 00:00:00 Test Item Value Reference Range Interpretation Comments GLUCOSE (test code = 2217) 88 MG/DL BUN (test code = 2208) 20 MG/DL CREATININE (test code = 2214) 0.98 MG/DL eGFR AMER. (test code 90 ML/MIN/1.73 = 61890) eGFR NON- AMER. (test 77 ML/MIN/1.73 code = 56890) CALC BUN/CREAT (test code = 20 RATIO [...] code = 2219) 13 U/L COMPREHENSIVE METABOLIC [id number] 00:00:00 Test Item Value Reference Range Interpretation Comments GLUCOSE (test code = 2217) 88 MG/DL BUN (test code = 2208) 20 MG/DL CREATININE (test code = 2214) 0.98 MG/DL eGFR AMER. (test code 90 ML/MIN/1.73 = 43093) eGFR NON- AMER. (test 77 ML/MIN/1.73 code = 81679) CALC BUN/CREAT (test code = 20 RATIO [...] ALT (test code = 2219) 13 U/L [id number] 00:00:00 Test Item Value Reference Range Interpretation Comments TSH, THIRD GENERATION (test code 0.587 UIU/ML = 2821) [id number] 00:00:00 Test Item Value Reference Range Interpretation Comments TSH, THIRD GENERATION (test code 0.587 UIU/ML = 2821) [id number] 00:00:00 Test Item Value Reference Range Interpretation Comments TSH, THIRD GENERATION (test code 0.587 UIU/ML = 2821) CBC W/AUTO [id number] 00:00:00 Test Item Value Reference Range Interpretation [...] code = 1015) 314 K/UL CBC W/AUTO [id number] 00:00:00 Test Item Value Reference Range Interpretation [...] code = 1015) 314 K/UL CBC W/AUTO [id number] 00:00:00 Test Item Value Reference Range Interpretation [...] code = 1015) 314 K/UL CBC W/AUTO [id number] 00:00:00 Test Item Value Reference Range Interpretation [...] (test code = 1015) 314 K/UL LIPID [id number] 00:00:00 Test Item Value Reference Range Interpretation Comments CHOLESTEROL (test code = 2210) 202 MG/DL TRIGLYCERIDES (test code = 2232) 169 MG/DL HDL CHOLESTEROL (test code = 2220) 62 MG/DL CALC LDL CHOL (test code = 2237) 111 MG/DL RISK RATIO LDL/HDL (test code = 1.79 RATIO 2238) LIPID [id number] 00:00:00 Test Item Value Reference Range Interpretation Comments CHOLESTEROL (test code = 2210) 202 MG/DL TRIGLYCERIDES (test code = 2232) 169 MG/DL HDL CHOLESTEROL (test code = 2220) 62 MG/DL CALC LDL CHOL (test code = 2237) 111 MG/DL RISK RATIO LDL/HDL (test code = 1.79 RATIO 2238) CBC W/AUTO [id number] 00:00:00 Test Item Value Reference Range Interpretation [...] code = 1015) 314 K/UL COMPREHENSIVE METABOLIC [id number] 00:00:00 Test Item Value Reference Range Interpretation Comments GLUCOSE (test code = 2217) 88 MG/DL BUN (test code = 2208) 20 MG/DL CREATININE (test code = 2214) 0.98 MG/DL eGFR AMER. (test code 90 ML/MIN/1.73 = 79527) eGFR NON- AMER. (test 77 ML/MIN/1.73 code = 67898) CALC BUN/CREAT (test code = 20 RATIO [...] code = 2219) 13 U/L COMPREHENSIVE METABOLIC [id number] 00:00:00 Test Item Value Reference Range Interpretation Comments GLUCOSE (test code = 2217) 88 MG/DL BUN (test code = 2208) 20 MG/DL CREATININE (test code = 2214) 0.98 MG/DL eGFR AMER. (test code 90 ML/MIN/1.73 = 22923) eGFR NON- AMER. (test 77 ML/MIN/1.73 code = 79213) CALC BUN/CREAT (test code = 20 RATIO [...] ALT (test code = 2219) 13 U/L [id number] 00:00:00 Test Item Value Reference Range Interpretation Comments TSH, THIRD GENERATION (test code 0.587 UIU/ML = 2821) [id number] 00:00:00 Test Item Value Reference Range Interpretation Comments TSH, THIRD GENERATION (test code 0.587 UIU/ML = 2821) [id number] 00:00:00 Test Item Value Reference Range Interpretation Comments TSH, THIRD GENERATION (test code 0.587 UIU/ML = 2821) CBC W/AUTO [id number] 00:00:00 Test Item Value Reference Range Interpretation [...] (test code = 1015) 314 K/UL LIPID [id number] 00:00:00 Test Item Value Reference Range Interpretation Comments CHOLESTEROL (test code = 2210) 202 MG/DL TRIGLYCERIDES (test code = 2232) 169 MG/DL HDL CHOLESTEROL (test code = 2220) 62 MG/DL CALC LDL CHOL (test code = 2237) 111 MG/DL RISK RATIO LDL/HDL (test code = 1.79 RATIO 2238) LIPID [id number] 00:00:00 Test Item Value Reference Range Interpretation Comments CHOLESTEROL (test code = 2210) 202 MG/DL TRIGLYCERIDES (test code = 2232) 169 MG/DL HDL CHOLESTEROL (test code = 2220) 62 MG/DL CALC LDL CHOL (test code = 2237) 111 MG/DL RISK RATIO LDL/HDL (test code = 1.79 RATIO 2238) CBC W/AUTO [id number] 00:00:00 Test Item Value Reference Range Interpretation [...] code = 1015) 314 K/UL CBC W/AUTO [id number] 00:00:00 Test Item Value Reference Range Interpretation [...] code = 1015) 314 K/UL CBC W/AUTO [id number] 00:00:00 Test Item Value Reference Range Interpretation [...] (test code = 1015) 314 K/UL LIPID [id number] 00:00:00 Test Item Value Reference Range Interpretation Comments CHOLESTEROL (test code = 2210) 202 MG/DL TRIGLYCERIDES (test code = 2232) 169 MG/DL HDL CHOLESTEROL (test code = 2220) 62 MG/DL CALC LDL CHOL (test code = 2237) 111 MG/DL RISK RATIO LDL/HDL (test code = 1.79 RATIO 2238) LIPID [id number] 00:00:00 Test Item Value Reference Range Interpretation Comments CHOLESTEROL (test code = 2210) 202 MG/DL TRIGLYCERIDES (test code = 2232) 169 MG/DL HDL CHOLESTEROL (test code = 2220) 62 MG/DL CALC LDL CHOL (test code = 2237) 111 MG/DL RISK RATIO LDL/HDL (test code = 1.79 RATIO 2238) COMPREHENSIVE METABOLIC [id number] 00:00:00 Test Item Value Reference Range Interpretation Comments GLUCOSE (test code = 2217) 88 MG/DL BUN (test code = 2208) 20 MG/DL CREATININE (test code = 2214) 0.98 MG/DL eGFR AMER. (test code 90 ML/MIN/1.73 = 71617) eGFR NON- AMER. (test 77 ML/MIN/1.73 code = 23386) CALC BUN/CREAT (test code = 20 RATIO [...] code = 2219) 13 U/L COMPREHENSIVE METABOLIC [id number] 00:00:00 Test Item Value Reference Range Interpretation Comments GLUCOSE (test code = 2217) 88 MG/DL BUN (test code = 2208) 20 MG/DL CREATININE (test code = 2214) 0.98 MG/DL eGFR AMER. (test code 90 ML/MIN/1.73 = 12268) eGFR NON- AMER. (test 77 ML/MIN/1.73 code = 15728) CALC BUN/CREAT (test code = 20 RATIO [...] code = 2219) 13 U/L COMPREHENSIVE METABOLIC [id number] 00:00:00 Test Item Value Reference Range Interpretation Comments GLUCOSE (test code = 2217) 88 MG/DL BUN (test code = 2208) 20 MG/DL CREATININE (test code = 2214) 0.98 MG/DL eGFR AMER. (test code 90 ML/MIN/1.73 = 34286) eGFR NON- AMER. (test 77 ML/MIN/1.73 code = 70073) CALC BUN/CREAT (test code = 20 RATIO [...] ALT (test code = 2219) 13 U/L [id number] 00:00:00 Test Item Value Reference Range Interpretation Comments TSH, THIRD GENERATION (test code 0.587 UIU/ML = 2821) [id number] 00:00:00 Test Item Value Reference Range Interpretation Comments TSH, THIRD GENERATION (test code 0.587 UIU/ML = 2821) [id number] 00:00:00 Test Item Value Reference Range Interpretation Comments TSH, THIRD GENERATION (test code 0.587 UIU/ML = 2821) PAP TEST, THINPREP, [id number] 00:00:00 Test Item Value Reference Range Interpretation Comments SOURCE: (test code = Endocervical 800) SLIDES: (test code = 1 8011) LMP: (test code = 10/2020) SPECIMEN ADEQUACY: (NOTE) (test code = 60282) INTERPRETATION: (test NILM/NO EPITH. code = 74523) ABNORMALITY;SEE BELOW OTHER COMMENTS: (test (NOTE) code = 8081) DIVERSITY INTERN: JUDSON Fonseca (test code = 8101) (ASCP) LOCATION: (test code (NOTE) = 74592) CPT: (test code = (NOTE) 8140) PAP TEST, THINPREP, [id number] 00:00:00 Test Item Value Reference Range Interpretation Comments SOURCE: (test code = Endocervical 800) SLIDES: (test code = 1 8011) LMP: (test code = 10/2020) SPECIMEN ADEQUACY: (NOTE) (test code = 77775) INTERPRETATION: (test NILM/NO EPITH. code = 65512) ABNORMALITY;SEE BELOW OTHER COMMENTS: (test (NOTE) code = 8081) DIVERSITY INTERN: JUDSON Fonseca (test code = 8101) (ASCP) LOCATION: (test code (NOTE) = 43630) CPT: (test code = (NOTE) 8140) PAP TEST, THINPREP, [id number] 00:00:00 Test Item Value Reference Range Interpretation Comments SOURCE: (test code = Endocervical 800) SLIDES: (test code = 1 8011) LMP: (test code = 10/2020 80) SPECIMEN ADEQUACY: (NOTE) (test code = 94265) INTERPRETATION: (test NILM/NO EPITH. code = 58098) ABNORMALITY;SEE BELOW OTHER COMMENTS: (test (NOTE) code = 8081) DIVERSITY INTERN: JUDSON Fonseca (test code = 8101) (ASCP) LOCATION: (test code (NOTE) = 33201) CPT: (test code = (NOTE) 8140) PAP TEST, THINPREP, [id number] 00:00:00 Test Item Value Reference Range Interpretation Comments SOURCE: (test code = Endocervical 8001) SLIDES: (test code = 1 8011) LMP: (test code = 10/2020 80) SPECIMEN ADEQUACY: (NOTE) (test code = 14052) INTERPRETATION: (test NILM/NO EPITH. code = 51130) ABNORMALITY;SEE BELOW OTHER COMMENTS: (test (NOTE) code = 8081) DIVERSITY INTERN: JUDSON Fonseca (test code = 8101) (ASCP) LOCATION: (test code (NOTE) = 89863) CPT: (test code = (NOTE) 8140) PAP TEST, THINPREP, [id number] 00:00:00 Test Item Value Reference Range Interpretation Comments SOURCE: (test code = Endocervical 800) SLIDES: (test code = 1 8011) LMP: (test code = 10/2020) SPECIMEN ADEQUACY: (NOTE) (test code = 18897) INTERPRETATION: (test NILM/NO EPITH. code = 35504) ABNORMALITY;SEE BELOW OTHER COMMENTS: (test (NOTE) code = 8081) DIVERSITY INTERN: JUDSON Fonseca (test code = 8101) (ASCP) LOCATION: (test code (NOTE) = 99541) CPT: (test code = (NOTE) 8140) PAP TEST, THINPREP, [id number] 00:00:00 Test Item Value Reference Range Interpretation Comments SOURCE: (test code = Endocervical 8001) SLIDES: (test code = 1 8011) LMP: (test code = 10/2020) SPECIMEN ADEQUACY: (NOTE) (test code = 75045) INTERPRETATION: (test NILM/NO EPITH. code = 89843) ABNORMALITY;SEE BELOW OTHER COMMENTS: (test (NOTE) code = 8081) DIVERSITY INTERN: JUDSON Fonseca (test code = 8101) (ASCP) LOCATION: (test code (NOTE) = 55432) CPT: (test code = (NOTE) 8140) PAP TEST, THINPREP, [id number] 00:00:00 Test Item Value Reference Range Interpretation Comments SOURCE: (test code = Endocervical 8001) SLIDES: (test code = 1 8011) LMP: (test code = 10/2020 8021) SPECIMEN ADEQUACY: (NOTE) (test code = 65178) INTERPRETATION: (test NILM/NO EPITH. code = 95775) ABNORMALITY;SEE BELOW OTHER COMMENTS: (test (NOTE) code = 8081) DIVERSITY INTERN: JUDSON Fonseca (test code = 8101) (ASCP) LOCATION: (test code (NOTE) = 92173) CPT: (test code = (NOTE) 8140) PAP TEST, THINPREP, [id number] 00:00:00 Test Item Value Reference Range Interpretation Comments SOURCE: (test code = Endocervical 8001) SLIDES: (test code = 1 8011) LMP: (test code = 10/2020 8021) SPECIMEN ADEQUACY: (NOTE) (test code = 38984) INTERPRETATION: (test NILM/NO EPITH. code = 34111) ABNORMALITY;SEE BELOW OTHER COMMENTS: (test (NOTE) code = 8081) DIVERSITY INTERN: JUDSON Fonseca (test code = 8101) (ASCP) LOCATION: (test code (NOTE) = 74671) CPT: (test code = (NOTE) 8140) PAP TEST, THINPREP, [id number] 00:00:00 Test Item Value Reference Range Interpretation Comments SOURCE: (test code = Endocervical 800) SLIDES: (test code = 1 801) LMP: (test code = 10/2020 8021) SPECIMEN ADEQUACY: (NOTE) (test code = 32523) INTERPRETATION: (test NILM/NO EPITH. code = 58140) ABNORMALITY;SEE BELOW OTHER COMMENTS: (test (NOTE) code = 8081) DIVERSITY INTERN: JUDSON Fonseca (test code = 8101) (ASCP) LOCATION: (test code (NOTE) = 80141) CPT: (test code = (NOTE) 8140) PAP TEST, THINPREP, [id number] 00:00:00 Test Item Value Reference Range Interpretation Comments SOURCE: (test code = Endocervical 8001) SLIDES: (test code = 1 8011) LMP: (test code = 10/2020 8021) SPECIMEN ADEQUACY: (NOTE) (test code = 71706) INTERPRETATION: (test NILM/NO EPITH. code = 69784) ABNORMALITY;SEE BELOW OTHER COMMENTS: (test (NOTE) code = 8081) DIVERSITY INTERN: JUDSON Fonseca (test code = 8101) (ASCP) LOCATION: (test code (NOTE) = 74357) CPT: (test code = (NOTE) 8140) HPV HIGH RISK WITH GENOTYPE, [id number] 00:00:00 Test Item Value Reference Range Interpretation Comments HPV HIGH RISK INTERP (test code = NEGATIVE 00307) HPV 16 (test code = 89847) NEGATIVE HPV 18 (test code = 05390) NEGATIVE HPV, HR, OTHER GENOTYPES (test code NEGATIVE = 03830) GC AND CHLAMYDIA AMPLIFIED, [id number] 00:00:00 Test Item Value Reference Range Interpretation Comments GONORRHEA, TMA (test code = 83737) NEGATIVE CHLAMYDIA, TMA (test code = 79925) NEGATIVE VAGINAL PATHOGENS DNA [id number] 00:00:00 Test Item Value Reference Range Interpretation Comments RONNA SPECIES (test code = ) NEGATIVE G. VAGINALIS (test code = 30544) POSITIVE T. VAGINALIS (test code = 83261) NEGATIVE GC AND CHLAMYDIA AMPLIFIED, [id number] 00:00:00 Test Item Value Reference Range Interpretation Comments GONORRHEA, TMA (test code = 60603) NEGATIVE CHLAMYDIA, TMA (test code = 16882) NEGATIVE VAGINAL PATHOGENS DNA [id number] 00:00:00 Test Item Value Reference Range Interpretation Comments RONNA SPECIES (test code = ) NEGATIVE G. VAGINALIS (test code = 08112) POSITIVE T. VAGINALIS (test code = 33773) NEGATIVE HPV HIGH RISK WITH GENOTYPE, [id number] 00:00:00 Test Item Value Reference Range Interpretation Comments HPV HIGH RISK INTERP (test code = NEGATIVE 44908) HPV 16 (test code = 26156) NEGATIVE HPV 18 (test code = 52015) NEGATIVE HPV, HR, OTHER GENOTYPES (test code NEGATIVE = 31435) HPV HIGH RISK WITH GENOTYPE, [id number] 00:00:00 Test Item Value Reference Range Interpretation Comments HPV HIGH RISK INTERP (test code = NEGATIVE 84988) HPV 16 (test code = 05772) NEGATIVE HPV 18 (test code = 74254) NEGATIVE HPV, HR, OTHER GENOTYPES (test code NEGATIVE = 89026) GC AND CHLAMYDIA AMPLIFIED, [id number] 00:00:00 Test Item Value Reference Range Interpretation Comments GONORRHEA, TMA (test code = 19327) NEGATIVE CHLAMYDIA, TMA (test code = 39752) NEGATIVE VAGINAL PATHOGENS DNA [id number] 00:00:00 Test Item Value Reference Range Interpretation Comments RONNA SPECIES (test code = ) NEGATIVE G. VAGINALIS (test code = 54807) POSITIVE T. VAGINALIS (test code = ) NEGATIVE GC AND CHLAMYDIA AMPLIFIED, [id number] 00:00:00 Test Item Value Reference Range Interpretation Comments GONORRHEA, TMA (test code = 33778) NEGATIVE CHLAMYDIA, TMA (test code = 71597) NEGATIVE VAGINAL PATHOGENS DNA [id number] 00:00:00 Test Item Value Reference Range Interpretation Comments RONNA SPECIES (test code = ) NEGATIVE G. VAGINALIS (test code = 05589) POSITIVE T. VAGINALIS (test code = ) NEGATIVE HPV HIGH RISK WITH GENOTYPE, [id number] 00:00:00 Test Item Value Reference Range Interpretation Comments HPV HIGH RISK INTERP (test code = NEGATIVE 41276) HPV 16 (test code = 58100) NEGATIVE HPV 18 (test code = 91395) NEGATIVE HPV, HR, OTHER GENOTYPES (test code NEGATIVE = 96261) HPV HIGH RISK WITH GENOTYPE, [id number] 00:00:00 Test Item Value Reference Range Interpretation Comments HPV HIGH RISK INTERP (test code = NEGATIVE 72804) HPV 16 (test code = 23745) NEGATIVE HPV 18 (test code = 76976) NEGATIVE HPV, HR, OTHER GENOTYPES (test code NEGATIVE = 68868) GC AND CHLAMYDIA AMPLIFIED, [id number] 00:00:00 Test Item Value Reference Range Interpretation Comments GONORRHEA, TMA (test code = 57462) NEGATIVE CHLAMYDIA, TMA (test code = 43314) NEGATIVE VAGINAL PATHOGENS DNA [id number] 00:00:00 Test Item Value Reference Range Interpretation Comments RONNA SPECIES (test code = ) NEGATIVE G. VAGINALIS (test code = ) POSITIVE T. VAGINALIS (test code = 56019) NEGATIVE GC AND CHLAMYDIA AMPLIFIED, [id number] 00:00:00 Test Item Value Reference Range Interpretation Comments GONORRHEA, TMA (test code = 76891) NEGATIVE CHLAMYDIA, TMA (test code = 64618) NEGATIVE VAGINAL PATHOGENS DNA [id number] 00:00:00 Test Item Value Reference Range Interpretation Comments RONNA SPECIES (test code = ) NEGATIVE G. VAGINALIS (test code = 28988) POSITIVE T. VAGINALIS (test code = 09996) NEGATIVE GC AND CHLAMYDIA AMPLIFIED, [id number] 00:00:00 Test Item Value Reference Range Interpretation Comments GONORRHEA, TMA (test code = 92799) NEGATIVE CHLAMYDIA, TMA (test code = 00978) NEGATIVE GC AND CHLAMYDIA AMPLIFIED, [id number] 00:00:00 Test Item Value Reference Range Interpretation Comments GONORRHEA, TMA (test code = 91015) NEGATIVE CHLAMYDIA, TMA (test code = 34492) NEGATIVE VAGINAL PATHOGENS DNA [id number] 00:00:00 Test Item Value Reference Range Interpretation Comments RONNA SPECIES (test code = ) NEGATIVE G. VAGINALIS (test code = 67899) POSITIVE T. VAGINALIS (test code = 18739) NEGATIVE VAGINAL PATHOGENS DNA [id number] 00:00:00 Test Item Value Reference Range Interpretation Comments RONNA SPECIES (test code = 02525) NEGATIVE G. VAGINALIS (test code = 48219) POSITIVE T. VAGINALIS (test code = 82585) NEGATIVE HPV HIGH RISK WITH GENOTYPE, [id number] 00:00:00 Test Item Value Reference Range Interpretation Comments HPV HIGH RISK INTERP (test code = NEGATIVE 30237) HPV 16 (test code = 24686) NEGATIVE HPV 18 (test code = 85123) NEGATIVE HPV, HR, OTHER GENOTYPES (test code NEGATIVE = 45932) HPV HIGH RISK WITH GENOTYPE, [id number] 00:00:00 Test Item Value Reference Range Interpretation Comments HPV HIGH RISK INTERP (test code = NEGATIVE 42809) HPV 16 (test code = 63202) NEGATIVE HPV 18 (test code = 26009) NEGATIVE HPV, HR, OTHER GENOTYPES (test code NEGATIVE = 66761) VAGINAL PATHOGENS DNA [id number] 00:00:00 Test Item Value Reference Range Interpretation Comments RONNA SPECIES (test code = ) NEGATIVE G. VAGINALIS (test code = 82687) POSITIVE T. VAGINALIS (test code = ) NEGATIVE GC AND CHLAMYDIA AMPLIFIED, [id number] 00:00:00 Test Item Value Reference Range Interpretation Comments GONORRHEA, TMA (test code = 47363) NEGATIVE CHLAMYDIA, TMA (test code = 90869) NEGATIVE GC AND CHLAMYDIA AMPLIFIED, [id number] 00:00:00 Test Item Value Reference Range Interpretation Comments GONORRHEA, TMA (test code = 78719) NEGATIVE CHLAMYDIA, TMA (test code = 39220) NEGATIVE VAGINAL PATHOGENS DNA [id number] 00:00:00 Test Item Value Reference Range Interpretation Comments RONNA SPECIES (test code = ) NEGATIVE G. VAGINALIS (test code = ) POSITIVE T. VAGINALIS (test code = ) NEGATIVE HPV HIGH RISK WITH GENOTYPE, [id number] 00:00:00 Test Item Value Reference Range Interpretation Comments HPV HIGH RISK INTERP (test code = NEGATIVE 00533) HPV 16 (test code = 06193) NEGATIVE HPV 18 (test code = 25187) NEGATIVE HPV, HR, OTHER GENOTYPES (test code NEGATIVE = 93264) HPV HIGH RISK WITH GENOTYPE, [id number] 00:00:00 Test Item Value Reference Range Interpretation Comments HPV HIGH RISK INTERP (test code = NEGATIVE 26783) HPV 16 (test code = 92956) NEGATIVE HPV 18 (test code = 24729) NEGATIVE HPV, HR, OTHER GENOTYPES (test code NEGATIVE = 88828) HPV HIGH RISK WITH GENOTYPE, [id number] 00:00:00 Test Item Value Reference Range Interpretation Comments HPV HIGH RISK INTERP (test code = NEGATIVE 86868) HPV 16 (test code = 24544) NEGATIVE HPV 18 (test code = 80556) NEGATIVE HPV, HR, OTHER GENOTYPES (test code NEGATIVE = 04492)
--- NOTE | 2023-09-03 07:54 | ER ---
Nurse's Notes [facility] Name: Zack Persaud Age: 32 yrs Sex: Female : 1990 Arrival Date: 09/03/2023 Time: 06:15 Bed DX4 Private MD: Diagnosis: Dermatitis, unspecified;Acute pharyngitis, unspecified Presentation: 09/03 06:28 Chief complaint: Chief complaint: Patient states: RASH ON CHEST AREA X 2 WEEKS, SEEN IN [facility] AND PRESCRIBED WITH CREAM, COUGH FOR 2 WEEKS. Coronavirus screen: At this time, the client does not indicate any symptoms associated with coronavirus-19. Ebola Screen: No symptoms or risks identified at this time. Initial Sepsis Screen: Does the patient meet any 2 criteria? No. Patient's initial sepsis screen is negative. Does the patient have a suspected source of infection? No. Patient's initial sepsis screen is negative. Risk Assessment: Do you want to hurt yourself or someone else? Patient reports no desire to harm self or others. Onset of symptoms was August 20, 2023. 06:28 Method Of Arrival: Ambulatory 06:28 Acuity: SHERRI 5 Triage Assessment: 06:34 General: Appears in no apparent distress. Behavior is anxious. Pain: Denies pain. EENT: rv Throat SORE. Neuro: Level of Consciousness is awake, alert, obeys commands, Oriented to person, place, time, situation. Cardiovascular: Capillary refill < 3 seconds Patient's skin is warm and dry. Respiratory: Airway is patent Respiratory effort is even, unlabored. GI: No signs and/or symptoms were reported involving the gastrointestinal system. : No signs and/or symptoms were reported regarding the genitourinary system. Derm: Skin is intact. Historical: - Allergies: 06:34 Adderall; rv 06:34 Codeine; rv 06:34 Fentanyl; rv 06:34 Geodon; rv - PMHx: 06:34 Anxiety; depressive disorder; rv - PSHx: 06:34 tubal ligation; rv - Immunization history:: Adult Immunizations up to date. - Social history:: Smoking status: Patient reports the use of cigarette tobacco products, VAPE. Screenin:05 [facility] ED Fall Risk Assessment (Adult) History of falling in the last 3 months, tm6 including since admission No falls in past 3 months (0 pts). Abuse screen: Denies threats or abuse. Denies injuries from another. Nutritional screening: No deficits noted. Tuberculosis screening: No symptoms or risk factors identified. Assessment: 08:05 General: Appears in no apparent distress. Behavior is calm, cooperative. Pain: tm6 Complains of pain in neck. Neuro: Level of Consciousness is awake, alert, obeys commands, Oriented to person, place, time, situation. Cardiovascular: Capillary refill < 3 seconds Patient's skin is warm and dry. Respiratory: Airway is patent Respiratory effort is even, unlabored, Respiratory pattern is regular, symmetrical, Breath sounds are clear. GI: Abdomen is round non-distended. : No signs and/or symptoms were reported regarding the genitourinary system. EENT: Reports pain sore throat. Derm: Reports rash. Musculoskeletal: No signs and/or symptoms reported regarding the musculoskeletal system. Vital Signs: 06:28 BP 159 / 90; Pulse 108; Resp 18; Pulse Ox 98% on R/A; rv ED Course: 06:17 Patient arrived in ED. jj6 06:33 Triage completed. rv 06:34 Arm band placed on right wrist. rv 07:08 Jose Alfredo Samayoa MD is Attending Physician. [facility] 08:05 Patient has correct armband on for positive identification. Provided Education on: tm6 medications given. 08:05 No provider procedures requiring assistance completed. Patient did not have IV access tm6 during this emergency room visit. Administered Medications: 07:51 Drug: AZITHromycin PO 500 mg PO once Route: PO; tm6 07:52 Drug: diphenhydrAMINE PO 25 mg PO once Route: PO; tm6 07:52 Drug: Famotidine PO 40 mg PO once Route: PO; tm6 07:52 Drug: predniSONE PO 40 mg PO once Route: PO; tm6 Medication: 08:05 VIS not applicable for this client. tm6 Outcome: 07:53 Discharge ordered by . adal 08:05 Discharged to home ambulatory, tm6 08:05 Condition: stable 08:05 Discharge instructions given to patient, Instructed on discharge instructions, follow up and referral plans. medication usage, Demonstrated understanding of instructions, follow-up care, medications, Prescriptions given X 4, 08:07 Patient left the ED. tm6 Signatures: Jose Alfredo Samayoa MD MD cha Vicente, Ronaldo, RN RN rv Alana Cordon jj6 Rey Connolly RN RN tm6 Corrections: (The following items were deleted from the chart) 06:34 06:28 Onset of symptoms was September 03, 2023 rv rv 06:38 06:28 Acuity: SHERRI 4 rv rv
--- NOTE | 2023-09-03 07:54 | EDPHYS ---
Physician Documentation [facility] Name: Zack Persaud Age: 32 yrs Sex: Female : 1990 Arrival Date: 09/03/2023 Time: 06:15 Bed DX4 Private MD: ED Physician Jose Alfredo Samayoa HPI: 09/03 07:43 This 32 yrs old Black Female presents to ER via Ambulatory with complaints of Rash, adal Sore Throat. 07:43 The patient's rash thought to be caused by Dermatitis. The rash is located on the face adal and chest. The rash can be described as erythematous. Historical: - Allergies: 06:34 Adderall; rv 06:34 Codeine; rv 06:34 Fentanyl; rv 06:34 Geodon; rv - PMHx: 06:34 Anxiety; depressive disorder; rv - PSHx: 06:34 tubal ligation; rv - Immunization history:: Adult Immunizations up to date. - Social history:: Smoking status: Patient reports the use of cigarette tobacco products, VAPE. ROS: 07:49 Constitutional: Negative for fever, chills, and weight loss, Eyes: Negative for injury, adal pain, redness, and discharge, Neck: Negative for injury, pain, and swelling, Cardiovascular: Negative for chest pain, palpitations, and edema, Respiratory: Negative for shortness of breath, cough, wheezing, and pleuritic chest pain, Abdomen/GI: Negative for abdominal pain, nausea, vomiting, diarrhea, and constipation, Back: Negative for injury and pain, : Negative for injury, bleeding, discharge, and swelling, MS/Extremity: Negative for injury and deformity, Neuro: Negative for headache, weakness, numbness, tingling, and seizure, Psych: Negative for depression, anxiety, suicide ideation, homicidal ideation, and hallucinations, Allergy/Immunology: Negative for hives, rash, and allergies, Endocrine: Negative for neck swelling, polydipsia, polyuria, polyphagia, and marked weight changes, Hematologic/Lymphatic: Negative for swollen nodes, abnormal bleeding, and unusual bruising, 07:49 ENT: Positive for sinus congestion, sore throat, 07:49 Skin: Positive for rash, of the face and chest, Exam: 07:49 Constitutional: This is a well developed, well nourished patient who is awake, alert, adal and in no acute distress. Head/Face: Normocephalic, atraumatic. Eyes: Pupils equal round and reactive to light, extra-ocular motions intact. Lids and lashes normal. Conjunctiva and sclera are non-icteric and not injected. Cornea within normal limits. Periorbital areas with no swelling, redness, or edema. Neck: Trachea midline, no thyromegaly or masses palpated, and no cervical lymphadenopathy. Supple, full range of motion without nuchal rigidity, or vertebral point tenderness. No Meningismus. Chest/axilla: Normal chest wall appearance and motion. Nontender with no deformity. No lesions are appreciated. Cardiovascular: Regular rate and rhythm with a normal S1 and S2. No gallops, murmurs, or rubs. Normal PMI, no JVD. No pulse deficits. Respiratory: Lungs have equal breath sounds bilaterally, clear to auscultation and percussion. No rales, rhonchi or wheezes noted. No increased work of breathing, no retractions or nasal flaring. Abdomen/GI: Soft, non-tender, with normal bowel sounds. No distension or tympany. No guarding or rebound. No evidence of tenderness throughout. Back: No spinal tenderness. No costovertebral tenderness. Full range of motion. MS/ Extremity: Pulses equal, no cyanosis. Neurovascular intact. Full, normal range of motion. Neuro: Awake and alert, GCS 15, oriented to person, place, time, and situation. Cranial nerves II-XII grossly intact. Motor strength 5/5 in all extremities. Sensory grossly intact. Cerebellar exam normal. Normal gait. Psych: Awake, alert, with orientation to person, place and time. Behavior, mood, and affect are within normal limits. 07:49 ENT: Posterior pharynx: Tonsils: are normal in appearance, with erythema, Uvula: normal, midline, non-edematous, no erythema, peritonsillar mass, is not appreciated, pooling of secretions, is not appreciated, 07:49 Skin: rash can be described as nonspecific, Vital Signs: 06:28 BP 159 / 90; Pulse 108; Resp 18; Pulse Ox 98% on R/A; rv MDM: 07:08 Patient medically screened. adal 07:52 Differential diagnosis: impetigo, varicella, allergic reaction, parasite infection. adal Data reviewed: vital signs, nurses notes. Consideration of Admission/Observation Escalation of care including admission/observation considered. I considered the following discharge prescriptions or medication management in the emergency department Medications were administered in the Emergency Department. See MAR. Test considered but Not performed: Labs: no labs. Care significantly affected by the following chronic conditions: anxiety , depression. Administered Medications: 07:51 Drug: AZITHromycin PO 500 mg PO once Route: PO; tm6 07:52 Drug: diphenhydrAMINE PO 25 mg PO once Route: PO; tm6 07:52 Drug: Famotidine PO 40 mg PO once Route: PO; tm6 07:52 Drug: predniSONE PO 40 mg PO once Route: PO; tm6 Disposition Summary: 09/03/23 07:53 Discharge Ordered Notes: Location: Home [facility] Problem: [facility] Symptoms: have improved adal Condition: Stable adal Diagnosis - Dermatitis, unspecified adal - Acute pharyngitis, unspecified adal Followup: [facility] - With: Private Physician - When: 2 - 3 days - Reason: Recheck today's complaints, Continuance of care, Re-evaluation by your physician Discharge Instructions: - Discharge Summary Sheet [facility] - Pharyngitis adal - Rash, Adult [facility] - Sore Throat [facility] - Pharyngitis, [id number] [facility] - Rash, Adult, Opad-jm-Atac [facility] Forms: - Medication Reconciliation Form [facility] - Thank You Letter [facility] - Antibiotic Education [facility] - Prescription Opioid Use [facility] - Patient Portal Instructions [facility] - Leadership Thank You Letter [facility] - Work release form tm6 Prescriptions: - Benadryl 25 mg Oral Capsule - take 1 capsule ORAL route every 6 hours As needed; 30 tablet; Refills: 0, [facility] Product Selection Permitted - Pepcid 20 mg Oral Tablet - take 1 tablet ORAL route every 12 hours for 10 days; 20 tablet; Refills: 0, [facility] Product Selection Permitted - Dione-D 12 Hour 60-120 mg Oral Tablet Sustained Release 12 hr - take 1 tablet ORAL route every 12 hours As needed; 20 tablet; Refills: 0, [facility] Product Selection Permitted - Zithromax Z-Mj 250 mg Oral tablet - take 1 tablet ORAL route as directed for 5 days Day 1 - take two (2) tablets adal one time. Day 2, 3, 4 , 5 take one (1) tablet once daily.; 6 tablet; Refills: 0, Product Selection Permitted Signatures: Jose Alfredo Samayoa MD MD cha Vicente, Ronaldo, RN RN rv Rey Connolly, RN RN tm6
[2023-09-03] MEDS ORDERED: predniSONE 20 MG TAB ONE (07:58)
[2023-09-03] MEDS ORDERED: AZITHROMYCIN 250 MG TAB ONE (07:58)
[2023-09-03] MEDS ORDERED: DIPHENHYDRAMINE 25 MG TAB/CAP ONE (07:58)
[2023-09-03] MEDS ORDERED: FAMOTIDINE 20 MG TAB ONE (07:59)
[2023-09-03 08:12] VITALS: BP 159/90; O2SAT 98
== END 2023-09-03 08:07 | disposition home or self-care (01) ==
LOC: ER 06:15
DX: L30.9 Dermatitis, unspecified (principal); J02.9 Acute pharyngitis, unspecified; R05.9 Cough, unspecified; Z88.5 Allergy status to narcotic agent; Z88.8 Allergy status to other drugs, medicaments and biological substances; Z72.0 Tobacco use; F41.9 Anxiety disorder, unspecified; F32.A Depression, unspecified
CPT/HCPCS: 99283; J7512

== ENCOUNTER → 2023-10-21 | Emergency (ER) | payer OTHER ==
[~2023-10-21] MED LIST: BENZTROPINE 2 MG/2 ML VIAL ONE
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
[2023-10-21 16:14] VITALS: TEMP 97.2; O2SAT 98
[2023-10-21 16:23] VITALS: BP 126/82
== END ==
LOC: ER 13:02
DX: G25.9 Extrapyramidal and movement disorder, unspecified (principal); F41.9 Anxiety disorder, unspecified; Z88.5 Allergy status to narcotic agent; Z88.8 Allergy status to other drugs, medicaments and biological substances
CPT/HCPCS: 96372; 99284; J0515

== ENCOUNTER → 2023-10-21 | Emergency (ER) | payer OTHER ==
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
--- NOTE | 2023-10-21 17:40 | ER ---
Nurse's Notes [facility] Name: Zack Persaud Age: 32 yrs Sex: Female : 1990 Arrival Date: 10/21/2023 Time: 16:34 Bed IW1 Private MD: Diagnosis: Muscle spasm Presentation: 10/21 16:47 Chief complaint: Patient states: Neck spasms onset today. Pt states, "I don't know if I cm10 am withdrawing from the medicine I got when I was here earlier." Pt not able to sit still in triage. Coronavirus screen: Vaccine status: Patient reports receiving the 2nd dose of the covid vaccine. Client denies travel out of the [place] in the last 14 days. Ebola Screen: Patient denies travel to an Ebola-affected area in the 21 days before illness onset. No symptoms or risks identified at this time. Initial Sepsis Screen: Does the patient meet any 2 criteria? No. Patient's initial sepsis screen is negative. Does the patient have a suspected source of infection? No. Patient's initial sepsis screen is negative. Risk Assessment: Do you want to hurt yourself or someone else? Patient reports no desire to harm self or others. Onset of symptoms was October 21, 2023. 16:47 Method Of Arrival: EMS: [facility] cm10 16:47 Acuity: SHERRI 4 cm10 Triage Assessment: 16:50 General: Appears in no apparent distress. uncomfortable, Behavior is anxious. cm10 16:50 Pain: Complains of pain in neck. Neuro: No deficits noted. Level of Consciousness is cm10 awake, alert, obeys commands, Oriented to person, place, time, situation. Cardiovascular: No deficits noted. Patient's skin is warm and dry. 16:54 Respiratory: No deficits noted. Airway is patent Respiratory effort is even, unlabored, cm10 Respiratory pattern is regular, symmetrical. Historical: - Allergies: 16:50 Adderall; cm10 16:50 Codeine; cm10 16:50 Fentanyl; cm10 16:50 Geodon; cm10 - PMHx: 16:50 Anxiety; depressive disorder; cm10 - PSHx: 16:50 tubal ligation; cm10 - Immunization history:: Adult Immunizations up to date. - Social history:: Smoking status: Reported history of juuling and/or vaping. Screenin:55 [facility] ED Fall Risk Assessment (Adult) History of falling in the last 3 months, cm10 including since admission No falls in past 3 months (0 pts) Confusion or Disorientation No (0 pts) Intoxicated or Sedated No (0 pts) Impaired Gait No (0 pts) Mobility Assist Device Used No (0 pt) Altered Elimination No (0 pt) Score/Fall Risk Level 0 - 2 = Low Risk Oriented to surroundings, Maintained a safe environment, Hourly rounding (assess needs \\T\\ fall precautionary measures) done. Abuse screen: Denies threats or abuse. Denies injuries from another. Nutritional screening: No deficits noted. Tuberculosis screening: No symptoms or risk factors identified. Vital Signs: 16:47 BP 138 / 117; Pulse 128; Resp 18; Temp 98.4; Pulse Ox 100% on R/A; Weight 83.46 kg (R); cm10 Height 5 ft. 2 in. ; Pain 0/10; 17:58 Pulse 118; Pulse Ox 98% ; cm10 16:47 Body Mass Index 33.65 (83.46 kg, 157.48 cm) cm10 16:47 Pain Scale: Adult cm10 16:47 Pt not sitting in triage. cm10 ED Course: 16:37 Patient arrived in ED. mg5 16:50 Triage completed. cm10 16:50 Arm band placed on Patient placed in waiting room. cm10 16:50 Patient has correct armband on for positive identification. Provided Education on: ER cm10 process and procedures. . 16:50 No provider procedures requiring assistance completed. Patient did not have IV access cm10 during this emergency room visit. 16:51 Mary Pérez FNP-C is PHCP. snw 16:51 Héctor Guzmán MD is Attending Physician. snw 17:32 CT Head C Spine In Process Unspecified. EDMS Administered Medications: 18:03 CANCELLED (Physician Discretion): [id number] mg PO once cm10 Medication: 16:55 VIS not applicable for this client. cm10 Outcome: 17:40 Discharge ordered by . snw 18:05 Discharged to home ambulatory, cm10 18:05 Condition: good 18:05 Discharge instructions given to patient, Instructed on discharge instructions, follow up and referral plans. medication usage, Demonstrated understanding of instructions, follow-up care, medications, Prescriptions given X 1, 18:06 Patient left the ED. cm10 Signatures: Dispatcher [employer] EDMS Salina Pérezy, FIELD STAFF MANAGER-C FIELD STAFF MANAGER-Solaw Reyna Mayberry RN RN cm10 Lori Elam mg5 Corrections: (The following items were deleted from the chart) 18:04 18:03 General: Appears in no apparent distress. uncomfortable, Behavior is anxious, [id number] 18:05 18:03 Pain: Complains of pain in neck cm10 cm10 18:05 18:03 Neuro: No deficits noted. Level of Consciousness is awake, alert, obeys commands, cm10 Oriented to person, place, time, situation, cm10 18:05 18:03 Cardiovascular: No deficits noted. Patient's skin is warm and dry. cm10 cm10 18:05 18:03 Respiratory: No deficits noted. Airway is patent Respiratory effort is even, cm10 unlabored, Respiratory pattern is regular, symmetrical, cm10
--- NOTE | 2023-10-21 17:40 | EDPHYS ---
Physician Documentation [facility] Name: Zack Persaud Age: 32 yrs Sex: Female : 1990 Arrival Date: 10/21/2023 Time: 16:34 Bed IW1 Private MD: ED Physician Héctor Guzmán HPI: 10/21 17:41 This 32 yrs old Black Female presents to ER via EMS with complaints of Neck Problem. snw 17:41 The patient or guardian complains of pain, that is acute, spasm. The symptoms are snw located on the scalp. Onset: The symptoms/episode began/occurred acutely. The pain does not radiate. Severity of symptoms: At their worst the symptoms were mild. It is unknown whether or not the patient has had similar symptoms in the past. The patient has been recently seen at the [facility], today, by me, for similar complaints pt rec'd Cogentin for EPS and slept until discharge without any complaint or movement d/o. Historical: - Allergies: 16:50 Adderall; cm10 16:50 Codeine; cm10 16:50 Fentanyl; cm10 16:50 Geodon; cm10 - PMHx: 16:50 Anxiety; depressive disorder; cm10 - PSHx: 16:50 tubal ligation; cm10 - Immunization history:: Adult Immunizations up to date. - Social history:: Smoking status: Reported history of juuling and/or vaping. ROS: 17:30 Constitutional: Negative for fever, chills, and weight loss, Eyes: Negative for injury, snw pain, redness, and discharge, ENT: Negative for injury, pain, and discharge, Cardiovascular: Negative for chest pain, palpitations, and edema, Respiratory: Negative for shortness of breath, cough, wheezing, and pleuritic chest pain, Abdomen/GI: Negative for abdominal pain, nausea, vomiting, diarrhea, and constipation, Back: Negative for injury and pain, : Negative for injury, bleeding, discharge, and swelling, MS/Extremity: Negative for injury and deformity, Skin: Negative for injury, rash, and discoloration, Neuro: Negative for headache, weakness, numbness, tingling, and seizure, Psych: Negative for depression, anxiety, suicide ideation, homicidal ideation, and hallucinations, 17:30 Neck: Positive for pain with movement, pain at rest, "neck spasms", Exam: 17:29 Head/Face: Normocephalic, atraumatic. Eyes: Pupils equal round and reactive to light, snw extra-ocular motions intact. Lids and lashes normal. Conjunctiva and sclera are non-icteric and not injected. Cornea within normal limits. Periorbital areas with no swelling, redness, or edema. ENT: Nares patent. No nasal discharge, no septal abnormalities noted. Tympanic membranes are normal and external auditory canals are clear. Oropharynx with no redness, swelling, or masses, exudates, or evidence of obstruction, uvula midline. Mucous membranes moist. Neck: Trachea midline, no thyromegaly or masses palpated, and no cervical lymphadenopathy. Supple, full range of motion without nuchal rigidity, or vertebral point tenderness. No Meningismus. Chest/axilla: Normal chest wall appearance and motion. Nontender with no deformity. No lesions are appreciated. Cardiovascular: Regular rate and rhythm with a normal S1 and S2. No gallops, murmurs, or rubs. Normal PMI, no JVD. No pulse deficits. Respiratory: Lungs have equal breath sounds bilaterally, clear to auscultation and percussion. No rales, rhonchi or wheezes noted. No increased work of breathing, no retractions or nasal flaring. Abdomen/GI: Soft, non-tender, with normal bowel sounds. No distension or tympany. No guarding or rebound. No evidence of tenderness throughout. Back: No spinal tenderness. No costovertebral tenderness. Full range of motion. Skin: Warm, dry with normal turgor. Normal color with no rashes, no lesions, and no evidence of cellulitis. Neuro: Awake and alert, GCS 15, oriented to person, place, time, and situation. Cranial nerves II-XII grossly intact. Motor strength 5/5 in all extremities. Sensory grossly intact. Cerebellar exam normal. Normal gait. 17:29 Constitutional: The patient appears alert, awake, anxious, obese, restless, uncomfortable, 17:29 Musculoskeletal/extremity: Extremities: grossly normal except: pt anxious, moving all extremities jerkily. Cell phone usage aborts symptoms, Circulation is intact in all extremities. Vital Signs: 16:47 BP 138 / 117; Pulse 128; Resp 18; Temp 98.4; Pulse Ox 100% on R/A; Weight 83.46 kg (R); cm10 Height 5 ft. 2 in. ; Pain 0/10; 17:58 Pulse 118; Pulse Ox 98% ; cm10 16:47 Body Mass Index 33.65 (83.46 kg, 157.48 cm) cm10 16:47 Pain Scale: Adult cm10 16:47 Pt not sitting in triage. cm10 MDM: 16:51 Patient medically screened. snw 17:41 Differential diagnosis: torticollis, Whiplash Injury psych. Data reviewed: vital signs, snw nurses notes. I considered the following discharge prescriptions or medication management in the emergency department Medications were administered in the Emergency Department. See MAR. Response to treatment: the patient's symptoms have mildly improved after treatment. Special discussion: Based on the history and exam findings, there is no indication for further emergent testing or inpatient evaluation. I discussed with the patient/guardian the need to see the primary care provider for further evaluation of the symptoms. I discussed with the patient/guardian the need to see the psychiatrist for further evaluation of the symptoms. 10/21 16:51 Order name: CT Head C Spine; Complete Time: 17:39 snw Administered Medications: 18:03 CANCELLED (Physician Discretion): [id number] mg PO once cm10 Disposition Summary: 10/21/23 17:40 Discharge Ordered Notes: Location: Home snw Condition: Stable snw Diagnosis - Muscle spasm snw Followup: snw - With: Emergency Department - When: As needed - Reason: Worsening of condition Followup: snw - With: Private Physician - When: 2 - 3 days - Reason: Recheck today's complaints, Continuance of care, Re-evaluation by your physician Discharge Instructions: - Discharge Summary Sheet snw - Muscle Cramps and Spasms snw - Managing Anxiety, Adult snw Forms: - Medication Reconciliation Form snw - Thank You Letter snw - Antibiotic Education snw - Prescription Opioid Use snw - Patient Portal Instructions snw - Leadership Thank You Letter snw Prescriptions: - orphenadrine citrate 100 mg Oral Tablet Sustained Release - take 1 tablet ORAL route 2 times per day As needed; 20 tablet; Refills: 0, snw Product Selection Permitted Signatures: Dispatcher [employer] Mary Allen FNP-C BOOKING PRIZER-Csnw Jefe, Reyna, RN RN cm10 Corrections: (The following items were deleted from the chart) 18:03 16:55 Propranolol PO 40 mg PO once ordered. indra cm10
[2023-10-21 19:56] VITALS: BP 138/117; TEMP 98.4; O2SAT 98
== END ==
LOC: ER 16:34
DX: M62.838 Other muscle spasm (principal); F41.9 Anxiety disorder, unspecified; Z88.5 Allergy status to narcotic agent; Z88.8 Allergy status to other drugs, medicaments and biological substances
CPT/HCPCS: 70450; 72125; 99283

== ENCOUNTER 2024-06-30 01:24 | Emergency (ER) | payer OTHER ==
[2024-06-30 02:05] LABS: Absolute Basophils 0.1 K/uL (0-0.5); Absolute Eosinophils 0.1 K/uL (0-0.5); Absolute Lymphocytes (CBC) 2.8 K/uL (0.7-4.9); Absolute Monocytes 0.5 K/uL (0.1-1.3); Absolute Neutrophil 2.8 K/uL (1.8-8.0); Basophils % 0.9 % (0-1.3); Eosinophils % 1.2 % (0-4.4); Hematocrit 34.3 % (36.0-45.0); Hemoglobin 11.7 g/dL (12.0-15.0); Lymphocytes % 44.6 % (15.3-44.8); MCH 29.4 pg (27.0-35.0); MCHC 34.1 g/dL (32.0-36.0); MCV 86.2 fL (80-100); MPV 7.7 fL (7.6-11.3); Monocytes % 8.4 % (3.3-12.3); Neutrophils % 44.9 % (41.7-73.7); Nucleated Red Blood Cells % 0.2 % (0-0); Platelets 304 thou/uL (152-406); RBC Red Blood Cell Count 3.99 M/uL (3.86-4.86); Red Cell Distribution Width 13.8 % (12.1-15.2)
[2024-06-30] MEDS ORDERED: FAMOTIDINE 20 MG/2 ML VIAL IV ONE (02:11)
[2024-06-30] MEDS ORDERED: KETOROLAC 30 MG/ML INJ ONE (02:11)
[2024-06-30] MEDS ORDERED: MAGNES/ALUMIN/SIMET 30ML UCUP ONE (02:11)
[2024-06-30] MEDS ORDERED: LIDOCAINE VISCOUS 2% 10ML ORAL SOLN ONE (02:11)
[2024-06-30 02:24] LABS: ALT/SGPT 23 U/L (13-56); Albumin 3.5 g/dL (3.4-5.0); Albumin/Globulin Ratio 0.9 (1.1-1.8); Alkaline Phosphatase 45 U/L (45-117); Anion Gap 10.7 mEq/L (5.0-15.0); BUN Blood Urea Nitrogen 14 mg/dL (7-18); Bicarbonate 23 mEq/L (21-32); Globulin 4.1 g/dL (2.3-3.5); Glomerular Filtration Rate 83 ml/min (=/>90); Glucose Level 111 mg/dL (74-106); Protein, Total 7.6 g/dL (6.4-8.2); Sodium Level 136 mEq/L (136-145); Troponin High Sensitivity 3.9 pg/mL (<58.9)
[2024-06-30 02:25] LABS: AST/SGOT 20 U/L (15-37); Bilirubin Direct < 0.2 mg/dL (0-0.2); Bilirubin Total < 0.2 mg/dL (0.2-1.0); Potassium 3.7 mEq/L (3.5-5.1)
--- NOTE | 2024-06-30 03:27 | ER ---
Nurse's Notes [facility] Name: Zack Persaud Age: 33 yrs Sex: Female : 1990 Arrival Date: 06/30/2024 Time: 01:24 Bed 13 Private MD: Diagnosis: Chest pain, unspecified Presentation: 06/30 01:33 Chief complaint: Patient states: Chest pain that started a couple of hours ago. vc1 Coronavirus screen: Client denies travel out of the [place] in the last 14 days. At this time, the client does not indicate any symptoms associated with coronavirus-19. Ebola Screen: Patient negative for fever greater than or equal to 101.5 degrees Fahrenheit, and additional compatible Ebola Virus Disease symptoms Patient denies exposure to infectious person. Patient denies travel to an Ebola-affected area in the 21 days before illness onset. No symptoms or risks identified at this time. Initial Sepsis Screen: Does the patient meet any 2 criteria? No. Patient's initial sepsis screen is negative. Does the patient have a suspected source of infection? No. Patient's initial sepsis screen is negative. Risk Assessment: Do you want to hurt yourself or someone else? Patient reports no desire to harm self or others. Onset of symptoms was June 30, 2024. Care prior to arrival: Medication(s) given: tums. Activity prior to arrival: None. Mechanism of Injury: No Mechanism of Injury. Transition of care: patient was not received from another setting of care. 01:33 Method Of Arrival: Ambulatory vc1 01:33 Acuity: SHERRI 3 vc1 Triage Assessment: 01:35 General: Appears in no apparent distress. uncomfortable, obese, well groomed, well vc1 developed, Behavior is cooperative, anxious. Pain: Complains of pain in chest Pain radiates to left arm Pain currently is 10 out of 10 on a pain scale. Quality of pain is described as stabbing, throbbing, Pain began 2 hours ago. Is continuous, Noted to be guarding. EENT: No deficits noted. No signs and/or symptoms were reported regarding the EENT system. Neuro: Level of Consciousness is awake, alert, obeys commands, Oriented to person, place, time, situation, Appropriate for age. Cardiovascular: Reports chest pain, Capillary refill < 3 seconds Patient's skin is warm and dry. Chest pain is described as severe, quality is stabbing. Respiratory: Airway is patent Respiratory effort is even, unlabored, Respiratory pattern is regular, symmetrical. GI: Abdomen is round non-distended, Bowel sounds present X 4 quads. : No deficits noted. No signs and/or symptoms were reported regarding the genitourinary system. Derm: Skin is intact, is healthy with good turgor, Skin is dry, Skin is normal, Skin temperature is warm. Musculoskeletal: Circulation, motion, and sensation intact. Range of motion: intact in all extremities. 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 - Infectious Disease History:: Denies. - Social history:: Smoking status: Reported history of juuling and/or vaping. - Family history:: not pertinent. Screenin:35 [facility] ED Fall Risk Assessment (Adult) History of falling in the last 3 months, vc1 including since admission No falls in past 3 months (0 pts) Confusion or Disorientation No (0 pts) Intoxicated or Sedated No (0 pts) Impaired Gait No (0 pts) Mobility Assist Device Used No (0 pt) Altered Elimination No (0 pt) Score/Fall Risk Level 0 - 2 = Low Risk Oriented to surroundings, Maintained a safe environment, Educated pt \T\ family on fall prevention, incl call for assistance when getting out of bed. Abuse screen: Denies threats or abuse. Nutritional screening: No deficits noted. Tuberculosis screening: No symptoms or risk factors identified. Assessment: 01:45 General: Appears in no apparent distress. Behavior is calm, cooperative, appropriate rg5 for age. 01:45 Pain: Complains of pain in chest Pain radiates to back Pain currently is 10 out of 10 rg5 on a pain scale. Quality of pain is described as aching, Pain began 3 hours ago. Neuro: Level of Consciousness is awake, alert, obeys commands, Oriented to person, place, time, situation. Cardiovascular: Reports chest pain, Capillary refill < 3 seconds Patient's skin is warm and dry. Rhythm is sinus rhythm. Respiratory: Airway is patent Trachea midline Respiratory effort is even, unlabored, Respiratory pattern is regular, symmetrical. GI: Abdomen is round non-distended, Abd is soft and non tender Reports epigastric pain. : No signs and/or symptoms were reported regarding the genitourinary system. EENT: No deficits noted. Derm: Skin is intact, Skin is dry, Skin is normal, Skin temperature is warm. Musculoskeletal: Range of motion: intact in all extremities. 02:47 Reassessment: Patient and/or family updated on plan of care and expected duration. Pain rg5 level reassessed. Patient is alert, oriented x 3, equal unlabored respirations, skin warm/dry/pink. Patient is alert/active/playful, equal unlabored respirations, skin warm/dry/pink. 03:24 Reassessment: Patient and/or family updated on plan of care and expected duration. Pain rg5 level reassessed. Patient is alert, oriented x 3, equal unlabored respirations, skin warm/dry/pink. Patient states feeling better. Patient states symptoms have improved. Vital Signs: 01:33 Weight 88.45 kg; Height 5 ft. 3 in. ; Pain 10/10; vc1 01:37 BP 144 / 103; Pulse 94; Resp 20; Temp 98; Pulse Ox 98% ; vc1 02:29 BP 144 / 87; Pulse 90; Resp 17; Pulse Ox 98% on R/A; rg5 03:24 BP 131 / 70; Pulse 87; Resp 17; Temp 98(O); Pulse Ox 97% on R/A; Pain 0/10; rg5 01:33 Body Mass Index 34.54 (88.45 kg, 160.02 cm) vc1 01:33 Pain Scale: Adult vc1 03:24 Pain Scale: Adult rg5 Remy Coma Score: 01:45 Eye Response: spontaneous(4). Motor Response: obeys commands(6). Verbal Response: rg5 oriented(5). Total: 15. ED Course: 01:33 Patient arrived in ED. vc1 01:33 Uri Navarrete MD is Attending Physician. rt 01:34 Triage completed. vc1 01:34 Arm band placed on right wrist. vc1 01:35 Patient has correct armband on for positive identification. Placed in gown. Bed in low vc1 position. Call light in reach. teletypesetter monitor on. Pulse ox on. NIBP on. 01:53 Asaf Bowman, RN is Primary Nurse. rg5 02:00 No provider procedures requiring assistance completed. rg5 02:19 Inserted saline lock: 22 gauge in right hand, using aseptic technique. Blood collected. rg5 Flushed with 10 mL NS. 02:32 XRAY Chest (1 view) In Process Unspecified. EDMS 03:34 Provided Education on: post er care. rg5 03:34 IV discontinued, bleeding controlled, No redness/swelling at site. Pressure dressing rg5 applied. Administered Medications: 02:18 Drug: Ketorolac IVP 15 mg IVP once Route: IVP; Site: right hand; rg5 02:46 Follow up: Response: No adverse reaction; Pain is decreased rg5 02:18 Drug: GI Cocktail without - (Maalox PO 30 ml, Lidocaine Mucous Membrane 2 % 15 rg5 ml) PO once Route: PO; 02:46 Follow up: Response: No adverse reaction rg5 02:18 Drug: Famotidine IVP 20 mg IVP once; dilute with 10 mL 0.9% NaCl; give over 2 minutes rg5 Route: IVP; Site: right hand; 02:46 Follow up: Response: No adverse reaction rg5 Medication: 01:35 VIS not applicable for this client. vc1 Outcome: 03:26 Discharge ordered by . rt 03:33 Discharged to home ambulatory, rg5 03:33 Condition: stable 03:33 Discharge instructions given to patient, Instructed on discharge instructions, Demonstrated understanding of instructions, follow-up care, medications, Prescriptions given X 1, 03:34 Patient left the ED. rg5 Signatures: Dispatcher [employer] EDMN Sandhya Castillo RN RN vc1 Uri Navarrete MD MD rt Asaf Bowman, TRUDY RN rg5
--- NOTE | 2024-06-30 03:27 | EDPHYS ---
Physician Documentation [facility] Name: Zack Persaud Age: 33 yrs Sex: Female : 1990 Arrival Date: 06/30/2024 Time: 01:24 Bed 13 Private MD: ED Physician Uri Navarrete HPI: 06/30 02:42 This 33 yrs old Black Female presents to ER via Ambulatory with complaints of Chest rt pain. 02:54 Patient presents to the ED with about 3 hours of chest pain. It is substernal, rt nonradiating. Reports a "funny feeling" to the left arm. Denies difficulty breathing, nausea, vomiting, abdominal pain. Symptoms are moderate in severity, no other aggravating or alleviating factors.. 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 - Infectious Disease History:: Denies. - Social history:: Smoking status: Reported history of juuling and/or vaping. - Family history:: not pertinent. ROS: 02:54 Constitutional: Negative for fever, chills, and weight loss, Respiratory: Negative for rt shortness of breath, cough, wheezing, and pleuritic chest pain, Abdomen/GI: Negative for abdominal pain, nausea, vomiting, diarrhea, and constipation, MS/Extremity: Negative for injury and deformity, Skin: Negative for injury, rash, and discoloration, Neuro: Negative for headache, weakness, numbness, tingling, and seizure, 02:54 Cardiovascular: Positive for chest pain, Negative for edema, Exam: 02:54 Constitutional: This is a well developed, well nourished patient who is awake, alert, rt and in no acute distress. Head/Face: Normocephalic, atraumatic. Chest/axilla: Normal chest wall appearance and motion. Nontender with no deformity. No lesions are appreciated. Cardiovascular: Regular rate and rhythm with a normal S1 and S2. No gallops, murmurs, or rubs. Normal PMI, no JVD. No pulse deficits. Respiratory: Lungs have equal breath sounds bilaterally, clear to auscultation and percussion. No rales, rhonchi or wheezes noted. No increased work of breathing, no retractions or nasal flaring. Abdomen/GI: Soft, non-tender, with normal bowel sounds. No distension or tympany. No guarding or rebound. No evidence of tenderness throughout. Skin: Warm, dry with normal turgor. Normal color with no rashes, no lesions, and no evidence of cellulitis. MS/ Extremity: Pulses equal, no cyanosis. Neurovascular intact. Full, normal range of motion. Neuro: Awake and alert, GCS 15, oriented to person, place, time, and situation. Cranial nerves II-XII grossly intact. Motor strength 5/5 in all extremities. Sensory grossly intact. Cerebellar exam normal. Normal gait. 02:54 ECG was reviewed by the Attending Physician. Vital Signs: 01:33 Weight 88.45 kg; Height 5 ft. 3 in. ; Pain 10/10; vc1 01:37 BP 144 / 103; Pulse 94; Resp 20; Temp 98; Pulse Ox 98% ; vc1 02:29 BP 144 / 87; Pulse 90; Resp 17; Pulse Ox 98% on R/A; rg5 03:24 BP 131 / 70; Pulse 87; Resp 17; Temp 98(O); Pulse Ox 97% on R/A; Pain 0/10; rg5 01:33 Body Mass Index 34.54 (88.45 kg, 160.02 cm) vc1 01:33 Pain Scale: Adult vc1 03:24 Pain Scale: Adult rg5 [place] Coma Score: 01:45 Eye Response: spontaneous(4). Motor Response: obeys commands(6). Verbal Response: rg5 oriented(5). Total: 15. MDM: 01:33 Patient medically screened. rt 03:44 Differential Diagnosis ACS, gastritis, acid reflux, chest wall pain, pneumonia, rt pneumothorax. Data reviewed: vital signs, nurses notes, lab test result(s), EKG, radiologic studies. Consideration of Admission/Observation Escalation of care including admission/observation considered. Patient with low heart score, unremarkable workup, symptoms improving with treatment in the ED. Given chronicity of symptoms, 1 set of high-sensitivity troponins is sufficient to rule out acute coronary syndrome. No indications for admission at this time.. I considered the following discharge prescriptions or medication management in the emergency department Medications were administered in the Emergency Department. See MAR. Independent interpretation of the following test(s) in the Emergency Department X-Ray: My interpretation is No infiltrate seen on interpretation of x-ray images. Test considered but Not performed: CT: Low suspicion for PE, PE RC negative, does not require CT angiogram. Care significantly affected by the following chronic conditions: Hypertension. Scoring Tools HEART Score: History: Slightly Suspicious (0) ECG: Normal (0) Age: < or = 45 years (0) Risk Factors: 1 or 2 Risk factors (1) Troponin: < or = 1 x Normal limit (0) Total Score = 1. Counseling: I had a detailed discussion with the patient and/or guardian regarding the historical points, exam findings, and any diagnostic results supporting the discharge/admit diagnosis, lab results, radiology results, the need for outpatient follow up. 03:46 Response to treatment: the patient's symptoms have markedly improved after treatment. rt 06/30 01:41 Order name: Basic Metabolic Panel; Complete Time: 02:27 rt 06/30 01:41 Order name: CBC with Diff; Complete Time: 02:27 rt 06/30 01:41 Order name: LFT's; Complete Time: 02:27 rt 06/30 01:41 Order name: Magnesium; Complete Time: 02:27 rt 06/30 01:41 Order name: Troponin HS; Complete Time: 02:27 rt 06/30 01:41 Order name: XRAY Chest (1 view) rt 06/30 01:41 Order name: EKG; Complete Time: 01:42 rt 06/30 01:41 Order name: Cardiac monitoring; Complete Time: 01:54 rt 06/30 01:41 Order name: EKG - Nurse/Tech; Complete Time: 02:17 rt 06/30 01:41 Order name: IV Saline Lock; Complete Time: :54 rt 06/30 01:41 Order name: Labs collected and sent; Complete Time: 01:54 rt 06/30 01:41 Order name: O2 Per Protocol; Complete Time: 01:54 rt 06/30 01:41 Order name: O2 Sat Monitoring; Complete Time: :54 rt EC:54 Rate is 93 beats/min. Rhythm is regular, Normal Sinus Rhythm with No ectopy. QRS [place] rt is Normal. PA interval is normal. QRS interval is normal. QT interval is normal. No Q waves. No ST changes noted. Interpreted by me. Administered Medications: 02:18 Drug: Ketorolac IVP 15 mg IVP once Route: IVP; Site: right hand; rg5 02:46 Follow up: Response: No adverse reaction; Pain is decreased rg5 02:18 Drug: GI Cocktail without - (Maalox PO 30 ml, Lidocaine Mucous Membrane 2 % 15 rg5 ml) PO once Route: PO; :46 Follow up: Response: No adverse reaction rg5 02:18 Drug: Famotidine IVP 20 mg IVP once; dilute with 10 mL 0.9% NaCl; give over 2 minutes rg5 Route: IVP; Site: right hand; :46 Follow up: Response: No adverse reaction rg5 Disposition Summary: 06/30/24 03:26 Discharge Ordered Notes: Location: Home rt Problem: new rt Symptoms: are resolved rt Condition: Stable rt Diagnosis - Chest pain, unspecified rt Followup: rt - With: Private Physician - When: 2 - 3 days - Reason: Discharge Instructions: - Discharge Summary Sheet rt - Nonspecific Chest Pain, Adult rt Forms: - Medication Reconciliation Form rt - Antibiotic Education rt - Prescription Opioid Use rt - Patient Portal Instructions rt - Leadership Thank You Letter rt Prescriptions: - Protonix 40 mg Oral tablet, delayed release (enteric coated) - take 1 tablet ORAL route once daily; 14 tablet; Refills: 0, Product Selection rt Permitted Signatures: Dispatcher [employer] EDPR Sandhya Castillo RN RN vc1 Uri Navarrete MD MD rt Asaf Bowman, TRUDY RN rg5
[2024-06-30 03:49] VITALS: TEMP 98
[2024-06-30 04:01] VITALS: BP 131/70; O2SAT 97
--- NOTE | 2024-07-01 12:50 | EKG ---
Test Date: 2024-06-30 Test Time: 01:31:24 Sewage Screen Operator: CIRO MEASUREMENT RESULTS: Intervals: Rate: 93 NC: 158 QRSD: 82 QT: 338 QTc: 420 [place]: P: 55 NC: 158 QRS: 83 T: -3 INTERPRETIVE STATEMENTS: Normal sinus rhythm T wave abnormality, consider inferior ischemia Abnormal ECG Compared to ECG 12/03/2022 15:37:18 Possible ischemia now present T-wave abnormality still present Electronically Signed On 07-01-24 12:47:43 CDT by David Sung
--- NOTE | 2024-07-01 14:22 | RAD REPORT ---
EXAM DESCRIPTION: Chest Single View CLINICAL HISTORY: CHEST PAIN COMPARISON: None TECHNIQUE: Single AP view of the chest. FINDINGS: Lung volumes adequate. Cardiac silhouette is normal in size. No pneumothorax. No large pleural effusion. No focal consolidation. No acute bony finding. IMPRESSION: No evidence of acute cardiopulmonary disease. Electronically signed by: Osiris Ordaz MD 06/30/2024 02:40 AM CDT RP Transcribed Date/Time: 07/01/2024 2:22 PM
== END 2024-06-30 03:34 | disposition home or self-care (01) ==
LOC: ER 01:24
DX: R07.9 Chest pain, unspecified (principal); I10 Essential (primary) hypertension; F41.9 Anxiety disorder, unspecified
CPT/HCPCS: 36415; 71045; 80048; 80076; 83735; 84484; 85025; 93005; 96374; 96375; 99285

== ENCOUNTER 2024-07-21 10:04 | Emergency (ER) | payer OTHER ==
[2024-07-21] MEDS ORDERED: NA CHLORIDE 0.9% 1,000 ML ONE (10:28)
--- NOTE | 2024-07-21 11:01 | ER ---
Nurse's Notes [facility] Name: Zack Persaud Age: 33 yrs Sex: Female : 1990 Arrival Date: 07/21/2024 Time: 10:04 Bed 6 Private MD: Diagnosis: Other stimulant abuse with stimulant-induced anxiety disorder Presentation: 07/21 10:16 Chief complaint: Patient states: STATES IS TAKING NALTREXONE AND BUPROPION FOR WEIGHT db LOSS AND IS HAVING JITTERY SYMPTOMS AND DOES NOT FEEL RIGHT. Coronavirus screen: Client denies travel out of the [place] in the last 14 days. At this time, the client does not indicate any symptoms associated with coronavirus-19. Ebola Screen: Patient negative for fever greater than or equal to 101.5 degrees Fahrenheit, and additional compatible Ebola Virus Disease symptoms Patient denies exposure to infectious person. Patient denies travel to an Ebola-affected area in the 21 days before illness onset. No symptoms or risks identified at this time. 10:16 Method Of Arrival: Ambulatory db 10:17 Initial Sepsis Screen: Does the patient meet any 2 criteria? No. Patient's initial db sepsis screen is negative. Does the patient have a suspected source of infection? No. Patient's initial sepsis screen is negative. Risk Assessment: Do you want to hurt yourself or someone else? Patient reports no desire to harm self or others. Onset of symptoms was July 21, 2024. 10:17 Acuity: SHERRI 3 db Triage Assessment: 10:21 General: Appears in no apparent distress. comfortable, Behavior is calm, cooperative. db Pain: Denies pain. Neuro: Level of Consciousness is awake, alert, obeys commands, Oriented to person, place, time, situation. Respiratory: Airway is patent Respiratory effort is even, unlabored, Respiratory pattern is regular, symmetrical. 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 - Infectious Disease History:: Denies. - Social history:: Smoking status: Patient denies any tobacco usage or history of. Screenin:31 [facility] ED Fall Risk Assessment (Adult) History of falling in the last 3 months, qf including since admission No falls in past 3 months (0 pts) Confusion or Disorientation No (0 pts) Intoxicated or Sedated No (0 pts) Impaired Gait No (0 pts) Mobility Assist Device Used No (0 pt) Altered Elimination No (0 pt) Score/Fall Risk Level 0 - 2 = Low Risk. Abuse screen: Denies threats or abuse. Denies injuries from another. Nutritional screening: No deficits noted. Tuberculosis screening: No symptoms or risk factors identified. Assessment: 10:29 General: Appears distressed, well groomed, well developed, well nourished, Behavior is qf cooperative, anxious, Reports Jitters. Pain: Complains of pain in Headache. Neuro: No deficits noted. Cardiovascular: No deficits noted. Respiratory: No deficits noted. 11:01 Reassessment: Patient and/or family updated on plan of care and expected duration. Pain rs5 level reassessed. Patient is alert, oriented x 3, equal unlabored respirations, skin warm/dry/pink. Vital Signs: 10:16 BP 140 / 86; Pulse 85; Resp 18; Temp 98.4(O); Pulse Ox 100% on R/A; Weight 88.9 kg; db Height 5 ft. 3 in. ; 10:50 BP 133 / 81; Pulse 77; Resp 17; Pulse Ox 99% on R/A; rs5 10:16 Body Mass Index 34.72 (88.90 kg, 160.02 cm) db ED Course: 10:06 Patient arrived in ED. im 10:06 Donte Molina FNP-C is PHCP. dr5 10:06 Gege Monte MD is Attending Physician. dr5 10:08 Cristhian Toro, TRUDY is Primary Nurse. bp 10:18 Triage completed. db 10:21 Arm band placed on Patient placed in an exam room. db 10:35 Patient has correct armband on for positive identification. Bed in low position. Call qf light in reach. Side rails up X 1. Client placed on continuous cardiac and pulse oximetry monitoring. NIBP monitoring applied. Door closed. Noise minimized. 10:35 Inserted saline lock: 24 gauge in right hand, using aseptic technique. Flushed with 10 qf mL NS. 11:03 Provided Education on: discharge instructions . rs5 11:03 No provider procedures requiring assistance completed. rs5 11:04 IV discontinued, intact, bleeding controlled, No redness/swelling at site. Pressure qf dressing applied. Administered Medications: 10:35 Drug: NS 0.9% IV 1000 ml IV at 1000 ml once Route: IV; Rate: 1000 ml; Site: right hand; rs5 10:55 Follow up: Response: No adverse reaction rs5 11:01 Follow up: IV Status: Order to discontinue infusion; IV Intake: 400ml rs5 Medication: 10:35 VIS not applicable for this client. qf Intake: 11:01 IV: 400ml; Total: 400ml. rs5 Outcome: 11:00 Discharge ordered by . dr5 11:03 Discharged to home ambulatory, rs5 11:03 Condition: stable 11:03 Discharge instructions given to patient, family, Instructed on discharge instructions, follow up and referral plans. Demonstrated understanding of instructions, follow-up care, 11:04 Patient left the ED. rs5 Signatures: Cristhian Toro RN RN Najma Strange, RN RN db Wellington Lehman RN RN rs5 Tierra Velazquez Dustin, GUIDE CRUISE-C GUIDE CRUISE-Cdr5 Grace Merchant RN RN qf Corrections: (The following items were deleted from the chart) 11:17 10:40 Response: No adverse reaction rs5 rs5
--- NOTE | 2024-07-21 11:01 | EDPHYS ---
Physician Documentation [facility] Name: Zack Persaud Age: 33 yrs Sex: Female : 1990 Arrival Date: 07/21/2024 Time: 10:04 Bed 6 Private MD: ED Physician Gege Monte HPI: 07/21 10:23 This 33 yrs old Black Female presents to ER via Ambulatory with complaints of Anxiety dr5 after taking weight loss medications. 10:23 Onset: The symptoms/episode began/occurred this morning. Pt reports she has been taking dr5 Buspar for weeks without issues. She added naltrexone this morning and felt lightheaded and jittery. Pt denies fever, rash, shortness of breath, chest pain.. 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 - Infectious Disease History:: Denies. - Social history:: Smoking status: Patient denies any tobacco usage or history of. ROS: 10:23 Constitutional: as per hpi dr5 Exam: 10:23 Constitutional: This is a well developed, well nourished patient who is awake, alert, dr5 and in no acute distress. Head/Face: Normocephalic, atraumatic. Chest/axilla: Normal chest wall appearance and motion. Nontender with no deformity. No lesions are appreciated. Cardiovascular: Regular rate and rhythm with a normal S1 and S2. Normal PMI, no JVD. No pulse deficits. Respiratory: Lungs have equal breath sounds bilaterally, clear to auscultation. No rales, rhonchi or wheezes noted. No increased work of breathing, no retractions or nasal flaring. Abdomen/GI: Soft, non-tender, non-distended Skin: Warm, dry with normal turgor. Normal color with no rashes, no lesions, and no evidence of cellulitis. MS/ Extremity: Pulses equal, no cyanosis. Neurovascular intact. Full, normal range of motion. Vital Signs: 10:16 BP 140 / 86; Pulse 85; Resp 18; Temp 98.4(O); Pulse Ox 100% on R/A; Weight 88.9 kg; db Height 5 ft. 3 in. ; 10:50 BP 133 / 81; Pulse 77; Resp 17; Pulse Ox 99% on R/A; rs5 10:16 Body Mass Index 34.72 (88.90 kg, 160.02 cm) db MDM: 10:06 Patient medically screened. dr5 10:23 Differential diagnosis: anaphylaxis, angioedema, Drug Side Effect. Data reviewed: vital dr5 signs, nurses notes. Consideration of Admission/Observation Escalation of care including admission/observation considered. Escalation / Admission considered for allergic reaction with angioedema requiring intubation.. I considered the following discharge prescriptions or medication management in the emergency department Medications were administered in the Emergency Department. See MAR. Care significantly affected by the following chronic conditions: Anxiety, Depression, HTN. Care significantly affected by the following Social Determinants of Health: Poor access to healthcare and/or lack of insurance, Poor access to transportation. Counseling: I had a detailed discussion with the patient and/or guardian regarding the historical points, exam findings, and any diagnostic results supporting the discharge/admit diagnosis, the presence of at least one elevated blood pressure reading (>120/80) during this emergency department visit, the need for outpatient follow up, for definitive care, a family practitioner, to return to the emergency department if symptoms worsen or persist or if there are any questions or concerns that arise at home. 11:00 ED course: Gave patient 1L of IVF. 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 Pt feels better after fluids and sandwich. All questions answered. VS stable. All symptoms resolved. . Administered Medications: 10:35 Drug: NS 0.9% IV 1000 ml IV at 1000 ml once Route: IV; Rate: 1000 ml; Site: right hand; rs5 10:55 Follow up: Response: No adverse reaction rs5 11:01 Follow up: IV Status: Order to discontinue infusion; IV Intake: 400ml rs5 Disposition Summary: 07/21/24 11:00 Discharge Ordered Notes: Location: Home dr5 Condition: Stable dr5 Diagnosis - Other stimulant abuse with stimulant-induced anxiety disorder dr5 Followup: dr5 - With: Emergency Department - When: As needed - Reason: Worsening of condition Followup: dr5 - With: Private Physician - When: 2 - 3 days - Reason: Recheck today's complaints, Continuance of care, Re-evaluation by your physician Discharge Instructions: - Discharge Summary Sheet dr5 - Amphetamines Use Disorder dr5 Forms: - Medication Reconciliation Form dr5 - Patient Portal Instructions dr5 - Leadership Thank You Letter dr5 Signatures: Najma Strange RN RN db Wellington Lehman RN RN rs5 Donte Molina, COMMISSARY MANAGER-C COMMISSARY MANAGER-[facility] [email or web address]
[2024-07-21 11:08] VITALS: BP 140/86; TEMP 98.4; O2SAT 100
== END 2024-07-21 11:04 | disposition home or self-care (01) ==
LOC: ER 10:04
DX: F15.180 Other stimulant abuse with stimulant-induced anxiety disorder (principal)
CPT/HCPCS: 99284; J7030